=== PATIENT | female | born 1955 | race African-American/Black ===

== ENCOUNTER 2016-12-06 17:54 | Emergency (ER) | payer OTHER ==
[2016-12-06 18:12] VITALS: RESP 18
[2016-12-06] MEDS ORDERED: predniSONE 20 MG TAB PO STA (18:14)
[2016-12-06] MEDS ORDERED: diphenhydrAMINE 25 MG CAP PO STA (18:14)
[2016-12-06] MEDS ORDERED: FAMOTIDINE 20 MG TAB PO STA (18:15)
[2016-12-06 19:20] VITALS: BP 153/88; PULSE 65; TEMP 97.8
--- NOTE | 2016-12-06 19:23 | ED ---
General Adult HPI - General Chief complaint: Allergic Reaction Stated complaint: allergic reaction Time Seen by Provider: 12/06/16 18:13 Source: patient, RN notes reviewed Mode of arrival: ambulatory Limitations: no limitations - History of Present Illness Initial comments: Chief complaint history of present illness is a 61-year-old female scone the emergency room after taking Benadryl home because of an ALLERGIC reaction. Patient reports she was using various places on her medial she started itching and having hives on her back chest and arms. She took Benadryl which by time she got it was already starting to help. Patient is not having any difficulty breathing. - Related Data Home Medications Medication Instructions Recorded Confirmed amLODIPine BESYLATE/BENAZEPRIL 1 cap PO DAILY 09/25/13 12/06/16 [Amlodipine-Benazepril 10-40 mg] Albuterol Inhaler [Ventolin Hfa 2 puff INHALATION RT-Q4H PRN 07/08/15 12/06/16 Inhaler] Budesonide [Pulmicort Flexhaler] 2 puff INHALATION RT-BID 12/06/16 12/06/16 Cholecalciferol [Vitamin D3] 1,000 unit PO DAILY 12/06/16 12/06/16 Cyanocobalamin (Vitamin B-12) 1,000 mcg PO DAILY 12/06/16 12/06/16 [Vitamin B-12] Gabapentin [Neurontin] 300 mg PO BID 12/06/16 12/06/16 Ibuprofen [Motrin] 400 mg PO Q8HR PRN 12/06/16 12/06/16 Previous Rx's Medication Instructions Recorded Famotidine [Pepcid] 20 mg PO DAILY #3 tablet 12/06/16 predniSONE 20 mg PO DAILY #3 tab 12/06/16 Allergies Allergy/AdvReac Type Severity Reaction Status Date / Time erythromycin base AdvReac Nausea Verified 12/06/16 18:32 [Erythromycin Base] Review of Systems ROS Statement: Those systems with pertinent positive or pertinent negative responses have been documented in the HPI. Review of systems. Patient denies any visual acuity no shortness of breath no stridor. She skin is itchy. She does have hives as noted. He states eyes wrist subsiding after taking Benadryl at home. Patient denies any chest pain shortness breath GI/ problems. All systems reviewed. Past medical problems significant for hypertension, osteoarthritis, she had bilateral tubal ligation and right hip pinning. Family history noncontributory. Patient has ALLERGIES to erythromycin base. ROS Other: All systems not noted in ROS Statement are negative. Past Medical History Past Medical History: Eye Disorder, Hypertension, Osteoarthritis (OA) Additional Past Medical History / Comment(s): Osteoporosis, Lower Back Pain, Sciatica., TOLD YEARS AGO SHE HAD HEART MURMUR- NO TX, HX ACUTE BRONCHITIS( SMOKER), GLASSES DAILY USE History of Any Multi-Drug Resistant Organisms: None Reported Past Surgical History: Orthopedic Surgery, Tubal Ligation Additional Past Surgical History / Comment(s): 2 pins right hip-dislocated 1975 Past Anesthesia/Blood Transfusion Reactions: No Reported Reaction Past Psychological History: Anxiety, Depression Smoking Status: Current some day smoker Past Alcohol Use History: Daily Past Drug Use History: None Reported - Past Family History Mother Family Medical History: Liver Disease Father Family Medical History: Cancer Additional Family Medical History / Comment(s): Lung and liver cancer. General Exam - General Exam Comments Initial Comments: General: The patient is awake and alert, anxious because of the hives. But improving because of Benadryl she took at home. In emergency room the patient's temperature 98.5 pulse 72 respiratory rate 18 pulse ox on percent room air blood pressure 127/76. Eye: Pupils are equal, round and reactive to light, extra-ocular movements are intact ; there is normal conjunctiva bilaterally. No signs of icterus. Ears, nose, mouth and throat: There are moist mucous membranes and no oral lesions. Neck: The neck is supple, there is no tenderness, no stridor. Cardiovascular: There is a regular rate and rhythm. No murmur, rub or gallop is appreciated. Respiratory: Lungs are clear to auscultation, respirations are non-labored, breath sounds are equal. No wheezes, stridor, rales, or rhonchi. Gastrointestinal: No complaint of nausea or vomiting. Back: Hives on her back which are subsiding. Musculoskeletal: Full range of motion upper and lower extremities but hives on her upper extremities. Neurological: Alert and oriented no deficits. Skin: Hives arms legs back chest. Limitations: no limitations Course Vital Signs 12/06/16 18:09 Temperature 98.5 F Pulse Rate 72 Respiratory 18 Rate Blood Pressure 127/70 O2 Sat by Pulse 100 Oximetry Medical Decision Making - Medical Decision Making Around emergency room the patient also received 25 mg more Benadryl. As well as Pepcid 20 and prednisone 20 by mouth. The patient is resting comfortably. Hives are subsiding. No stridor no respiratory distress no difficulty breathing. On discharge patient will be advised to take Benadryl 25 mg 4 times daily she' ll also be advised to take Pepcid 1 tablet daily for the next 2 days as well as prednisone 20 mg daily for the next 2 days. Advised return emergency room if she has any changes especially respiratory problems. Disposition Clinical Impression: Allergic reaction Disposition: HOME SELF-CARE Condition: Good Instructions: Food Allergy (ED) Additional Instructions: Take Benadryl 25 mg 3 times a day for the next 2 days. Take prednisone 20 mg one per day for the next 2 days. Take Pepcid 20 mg one per day for the next 2 days. Prescriptions: Famotidine [Pepcid] 20 mg PO DAILY #3 tablet predniSONE 20 mg PO DAILY #3 tab Referrals: Esmer Holm MD [Primary Care Provider] - 1-2 days Time of Disposition: 19:23
== END 2016-12-06 19:30 | disposition home or self-care (01) ==
LOC: EC 17:54
DX: T78.49XA Other allergy, initial encounter (principal); I10 Essential (primary) hypertension; F41.9 Anxiety disorder, unspecified; F17.200 Nicotine dependence, unspecified, uncomplicated; Z79.899 Other long term (current) drug therapy; Z79.51 Long term (current) use of inhaled steroids; Z88.1 Allergy status to other antibiotic agents; Z87.09 Personal history of other diseases of the respiratory system
CPT/HCPCS: 99283; J7512

== ENCOUNTER 2017-10-26 17:16 | Emergency (ER) | payer OTHER ==
[2017-10-26 17:31] VITALS: TEMP 97.9
[2017-10-26] MEDS ORDERED: IPRATROPIUM-ALBUTEROL 3 ML NEB INHALATION STA (17:56)
--- NOTE | 2017-10-26 17:56 | ED ---
General Adult HPI - General Chief complaint: Shortness of Breath Stated complaint: Sob Time Seen by Provider: 10/26/17 17:25 Source: patient, RN notes reviewed Mode of arrival: EMS Limitations: no limitations - History of Present Illness Initial comments: This is a 62-year-old female who presents to the emergency department complaining that she's had difficulty breathing 4 days. Patient is very tearful throughout the exam which she cannot explain. Patient states the difficulty breathing started 4 days ago and seems to be getting worse. Patient states she has had a cough but the cough is a dry cough no sputum production. Patient denies any fever or chills. Patient states she still is a smoker. Patient denies any chest pain or palpitations. Patient denies any calf pain or leg swelling. Patient denies any abdominal pain. Patient denies any headache patient denies numbness weakness. Patient denies any drug use. - Related Data Home Medications Medication Instructions Recorded Confirmed amLODIPine BESYLATE/BENAZEPRIL 1 cap PO DAILY 09/25/13 12/06/16 [Amlodipine-Benazepril 10-40 mg] Albuterol Inhaler [Ventolin Hfa 2 puff INHALATION RT-Q4H PRN 07/08/15 12/06/16 Inhaler] Budesonide [Pulmicort Flexhaler] 2 puff INHALATION RT-BID 12/06/16 12/06/16 Cholecalciferol [Vitamin D3] 1,000 unit PO DAILY 12/06/16 12/06/16 Cyanocobalamin (Vitamin B-12) 1,000 mcg PO DAILY 12/06/16 12/06/16 [Vitamin B-12] Gabapentin [Neurontin] 300 mg PO BID 12/06/16 12/06/16 Ibuprofen [Motrin] 400 mg PO Q8HR PRN 12/06/16 12/06/16 Previous Rx's Medication Instructions Recorded Famotidine [Pepcid] 20 mg PO DAILY #3 tablet 12/06/16 predniSONE 20 mg PO DAILY #3 tab 12/06/16 Allergies Allergy/AdvReac Type Severity Reaction Status Date / Time erythromycin base AdvReac Nausea Verified 10/26/17 17:31 [Erythromycin Base] Review of Systems ROS Statement: Those systems with pertinent positive or pertinent negative responses have been documented in the HPI. ROS Other: All systems not noted in ROS Statement are negative. Past Medical History Past Medical History: Eye Disorder, Hypertension, Osteoarthritis (OA) Additional Past Medical History / Comment(s): Osteoporosis, Lower Back Pain, Sciatica., TOLD YEARS AGO SHE HAD HEART MURMUR- NO TX, HX ACUTE BRONCHITIS( SMOKER), GLASSES DAILY USE History of Any Multi-Drug Resistant Organisms: None Reported Past Surgical History: Orthopedic Surgery, Tubal Ligation Additional Past Surgical History / Comment(s): 2 pins right hip-dislocated 1976 Past Anesthesia/Blood Transfusion Reactions: No Reported Reaction Past Psychological History: Anxiety, Depression Smoking Status: Current every day smoker Past Alcohol Use History: Daily Past Drug Use History: None Reported - Past Family History Mother Family Medical History: Liver Disease Father Family Medical History: Cancer Additional Family Medical History / Comment(s): Lung and liver cancer. General Exam - General Exam Comments Initial Comments: GENERAL: Patient is well-developed and well-nourished. Patient is nontoxic and well- hydrated and is in mild distress. ENT: Neck is soft and supple. No significant lymphadenopathy is noted. Oropharynx is clear. Moist mucous membranes. Neck has full range of motion without eliciting any pain. EYES: The sclera were anicteric and conjunctiva were pink and moist. Extraocular movements were intact and pupils were equal round and reactive to light. Eyelids were unremarkable. PULMONARY: Unlabored respirations. Good breath sounds bilaterally. No audible rales rhonchi or wheezing was noted. CARDIOVASCULAR: There is a regular rate and rhythm without any murmurs gallops or rubs. ABDOMEN: Soft and nontender with normal bowel sounds. No palpable organomegaly was noted. There is no palpable pulsatile mass. SKIN: Skin is clear with no lesions or rashes and otherwise unremarkable. NEUROLOGIC: Patient is alert and oriented x3. Cranial nerves II through XII are grossly intact. Motor and sensory are also intact. Normal speech, volume and content. Symmetrical smile. MUSCULOSKELETAL: Normal extremities with adequate strength and full range of motion. No lower extremity swelling or edema. No calf tenderness. LYMPHATICS: No significant lymphadenopathy is noted PSYCHIATRIC: Patient seems very upset and threw the whole interview is crying. Limitations: no limitations Course Vital Signs 10/26/17 10/26/17 10/26/17 17:27 19:05 19:16 Temperature 97.9 F Pulse Rate 80 75 77 Respiratory 20 Rate Blood Pressure 131/75 O2 Sat by Pulse 97 Oximetry 10/26/17 20:54 Temperature Pulse Rate 74 Respiratory 18 Rate Blood Pressure 114/70 O2 Sat by Pulse 97 Oximetry Medical Decision Making - Medical Decision Making EKG shows normal sinus rhythm at 77 bpm [place] interval is 146 QRS is 80 QT interval 346 QTC is 391. Patient's EKG shows no ST segment elevation or depression or T wave abnormalities are noted. Chest x-ray shows no acute abnormality. I will back into the room the patient was sitting on the edge of bed talking laughing with family with no oxygen in no distress and oxygenating at 98%. - Lab Data Result diagrams: 10/26/17 18:23 10/26/17 18:23 Lab Results 10/26/17 10/26/17 10/26/17 Range/Units 18:23 18:23 18:23 WBC 8.1 (3.8-10.6) k/uL RBC 4.23 (3.80-5.40) m/uL Hgb 12.0 (11.4-16.0) gm/dL Hct 36.1 (34.0-46.0) % MCV 85.5 (80.0-100.0) fL MCH 28.3 (25.0-35.0) pg MCHC 33.1 (31.0-37.0) g/dL RDW 13.5 (11.5-15.5) % Plt Count 355 (150-450) k/uL Neutrophils % 52 % Lymphocytes % 37 % Monocytes % 6 % Eosinophils % 2 % Basophils % 1 % Neutrophils # 4.2 (1.3-7.7) k/uL Lymphocytes # 3.0 (1.0-4.8) k/uL Monocytes # 0.5 (0-1.0) k/uL Eosinophils # 0.2 (0-0.7) k/uL Basophils # 0.0 (0-0.2) k/uL PT (9.0-12.0) sec INR (<1.2) APTT (22.0-30.0) sec D-Dimer (<0.60) mg/L FEU Sodium 131 L (137-145) mmol/L Potassium 4.3 (3.5-5.1) mmol/L Chloride 100 (98-107) mmol/L Carbon Dioxide 17 L (22-30) mmol/L Anion Gap 14 mmol/L BUN 6 L (7-17) mg/dL Creatinine 0.50 L (0.52-1.04) mg/dL Est GFR (CKD-EPI)AfAm >90 (>60 ml/min/1.73 sqM) Est GFR (CKD-EPI)NonAf >90 (>60 ml/min/1.73 sqM) Glucose 86 (74-99) mg/dL Calcium 9.4 (8.4-10.2) mg/dL Magnesium 1.7 (1.6-2.3) mg/dL Total Bilirubin 0.4 (0.2-1.3) mg/dL AST 35 (14-36) U/L ALT 36 (9-52) U/L Alkaline Phosphatase 65 (38-126) U/L Total Creatine Kinase 136 H (30-135) U/L CK-MB (CK-2) 0.8 (0.0-2.4) ng/mL CK-MB (CK-2) Rel Index 0.6 Troponin I <0.012 (0.000-0.034) ng/mL NT-Pro-B Natriuret Pep pg/mL Total Protein 7.3 (6.3-8.2) g/dL Albumin 4.5 (3.5-5.0) g/dL Serum Alcohol 212 mg/dL 10/26/17 10/26/17 Range/Units 18:23 18:23 WBC (3.8-10.6) k/uL RBC (3.80-5.40) m/uL Hgb (11.4-16.0) gm/dL Hct (34.0-46.0) % MCV (80.0-100.0) fL MCH (25.0-35.0) pg MCHC (31.0-37.0) g/dL RDW (11.5-15.5) % Plt Count (150-450) k/uL Neutrophils % % Lymphocytes % % Monocytes % % Eosinophils % % Basophils % % Neutrophils # (1.3-7.7) k/uL Lymphocytes # (1.0-4.8) k/uL Monocytes # (0-1.0) k/uL Eosinophils # (0-0.7) k/uL Basophils # (0-0.2) k/uL PT 9.4 (9.0-12.0) sec INR 0.9 (<1.2) APTT 24.4 (22.0-30.0) sec D-Dimer 0.57 (<0.60) mg/L FEU Sodium (137-145) mmol/L Potassium (3.5-5.1) mmol/L Chloride (98-107) mmol/L Carbon Dioxide (22-30) mmol/L Anion Gap mmol/L BUN (7-17) mg/dL Creatinine (0.52-1.04) mg/dL Est GFR (CKD-EPI)AfAm (>60 ml/min/1.73 sqM) Est GFR (CKD-EPI)NonAf (>60 ml/min/1.73 sqM) Glucose (74-99) mg/dL Calcium (8.4-10.2) mg/dL Magnesium (1.6-2.3) mg/dL Total Bilirubin (0.2-1.3) mg/dL AST (14-36) U/L ALT (9-52) U/L Alkaline Phosphatase (38-126) U/L Total Creatine Kinase (30-135) U/L CK-MB (CK-2) (0.0-2.4) ng/mL CK-MB (CK-2) Rel Index Troponin I (0.000-0.034) ng/mL NT-Pro-B Natriuret Pep 83 pg/mL Total Protein (6.3-8.2) g/dL Albumin (3.5-5.0) g/dL Serum Alcohol mg/dL Disposition Clinical Impression: Alcohol intoxication, Dyspnea Disposition: HOME SELF-CARE Condition: Good Instructions: Alcohol Intoxication (ED), Dyspnea (ED) Is patient prescribed a controlled substance at d/c from ED?: No Referrals: Esmer Holm MD [Primary Care Provider] - 1-2 days Time of Disposition: 20:32
[2017-10-26 18:35] LABS: Basophils % (A) 1 %; Eosinophils # (A) 0.2 k/uL (0-0.7); Eosinophils % (A) 2 %; HCT 36.1 % (34.0-46.0); Lymphocytes % (A) 37 %; MCH 28.3 pg (25.0-35.0); MCHC 33.1 g/dL (31.0-37.0); MCV 85.5 fL (80.0-100.0); Mean Platelet Volume 6.6; Monocytes # (A) 0.5 k/uL (0-1.0); Monocytes % (A) 6 %; Neutrophils # (A) 4.2 k/uL (1.3-7.7); Neutrophils % (A) 52 %; Platelet Count 355 k/uL (150-450); RBC 4.23 m/uL (3.80-5.40); RDW 13.5 % (11.5-15.5); WBC 8.1 k/uL (3.8-10.6)
[2017-10-26 18:46] LABS: ALT 36 U/L (9-52); AST 35 U/L (14-36); Albumin 4.5 g/dL (3.5-5.0); Alkaline Phosphatase 65 U/L (38-126); Anion Gap 14 mmol/L; Blood Urea Nitrogen 6 mg/dL (7-17); Calcium 9.4 mg/dL (8.4-10.2); Carbon Dioxide 17 mmol/L (22-30); Chloride 100 mmol/L (98-107); Glucose 86 mg/dL (74-99); Magnesium 1.7 mg/dL (1.6-2.3); Potassium 4.3 mmol/L (3.5-5.1); Sodium 131 mmol/L (137-145); Total Bilirubin 0.4 mg/dL (0.2-1.3); Total Protein 7.3 g/dL (6.3-8.2)
[2017-10-26 18:49] LABS: Alcohol 212 mg/dL
[2017-10-26 18:52] LABS: Creatine Kinase 136 U/L (30-135)
[2017-10-26 18:54] LABS: D-Dimer 0.57 mg/L FEU (<0.60); INR 0.9 (<1.2); Partial Thromboplastin Time 24.4 sec (22.0-30.0); Prothrombin Time 9.4 sec (9.0-12.0)
[2017-10-26 19:06] LABS: Creatine Kinase MB 0.8 ng/mL (0.0-2.4); Troponin I <0.012 ng/mL (0.000-0.034)
[2017-10-26 20:55] VITALS: BP 114/70; PULSE 74; RESP 18
--- NOTE | 2017-10-26 21:23 | XR ---
EXAMINATION: XR chest 2V DATE AND TIME: 10/26/2017 7:19 PM ORDERING PROVIDER: David Gorman MD CLINICAL INDICATION: difficulty breathing TECHNIQUE: PA and lateral COMPARISON: 02/13/2015 DESCRIPTION: The lungs are clear. The pleural spaces are negative. The cardiac silhouette is not enlarged. The mediastinal and pleural silhouettes are unremarkable. The skeletal structures are intact without focal findings. The soft tissues are unremarkable. IMPRESSION: NO ACUTE PROCESS.
== END 2017-10-26 21:00 | disposition home or self-care (01) ==
LOC: EC 17:16
DX: F10.120 Alcohol abuse with intoxication, uncomplicated (principal); R06.00 Dyspnea, unspecified; R05 Cough; I10 Essential (primary) hypertension; F17.200 Nicotine dependence, unspecified, uncomplicated; Z79.51 Long term (current) use of inhaled steroids; Z79.899 Other long term (current) drug therapy; Z88.1 Allergy status to other antibiotic agents
CPT/HCPCS: 36415; 71046; 80053; 80320; 82550; 82553; 83735; 83880; 84484; 85025; 85379; 85610; 85730; 93005; 94640; 99285

== ENCOUNTER 2017-11-22 16:54 | Emergency (ER) | payer OTHER ==
[2017-11-22 17:06] VITALS: RESP 18
[2017-11-22] MEDS ORDERED: PANTOPRAZOLE 40 MG/10 ML VIAL IVP STA (18:17)
[2017-11-22] MEDS ORDERED: MAG HYDROX/AL HYDROX/SIMETH 30 ML, HYOSCYAMINE ELIXIR 10 ML, CIMETIDINE HCL 300 MG PO STA ×3 (18:17)
--- NOTE | 2017-11-22 18:20 | ED ---
General Adult HPI - General Chief complaint: Abdominal Pain Stated complaint: Gas in stomach Time Seen by Provider: 11/22/17 18:01 Source: patient, RN notes reviewed Mode of arrival: ambulatory Limitations: no limitations - History of Present Illness Initial comments: This is a 62-year-old female presents emergency Department chief complaint of gas . She states that she has increased gas states that she's currently burping and passing gas rectally. Patient states that when she does burp or pass gas she feels better. She denies any shortness breath usual she states she is a daily smoker and does have COPD. Patient denies chest pain. Patient states that the symptoms started yesterday and have continued into today. Patient denies any prior abdominal surgeries. Denies fever, chills, nausea or vomiting. Patient states that she's had no cardiac history. - Related Data Home Medications Medication Instructions Recorded Confirmed amLODIPine BESYLATE/BENAZEPRIL 1 cap PO DAILY 09/25/13 12/06/16 [Amlodipine-Benazepril 10-40 mg] Albuterol Inhaler [Ventolin Hfa 2 puff INHALATION RT-Q4H PRN 07/08/15 12/06/16 Inhaler] Budesonide [Pulmicort Flexhaler] 2 puff INHALATION RT-BID 12/06/16 12/06/16 Cholecalciferol [Vitamin D3] 1,000 unit PO DAILY 12/06/16 12/06/16 Cyanocobalamin (Vitamin B-12) 1,000 mcg PO DAILY 12/06/16 12/06/16 [Vitamin B-12] Gabapentin [Neurontin] 300 mg PO BID 12/06/16 12/06/16 Ibuprofen [Motrin] 400 mg PO Q8HR PRN 12/06/16 12/06/16 Previous Rx's Medication Instructions Recorded Famotidine [Pepcid] 20 mg PO DAILY #3 tablet 12/06/16 predniSONE 20 mg PO DAILY #3 tab 12/06/16 Omeprazole 40 mg PO DAILY #14 capsule. 11/22/17 Allergies Allergy/AdvReac Type Severity Reaction Status Date / Time erythromycin base AdvReac Nausea Verified 11/22/17 17:06 [Erythromycin Base] Review of Systems ROS Statement: Those systems with pertinent positive or pertinent negative responses have been documented in the HPI. ROS Other: All systems not noted in ROS Statement are negative. Past Medical History Past Medical History: Eye Disorder, Hypertension, Osteoarthritis (OA) Additional Past Medical History / Comment(s): Osteoporosis, Lower Back Pain, Sciatica., TOLD YEARS AGO SHE HAD HEART MURMUR- NO TX, HX ACUTE BRONCHITIS( SMOKER), GLASSES DAILY USE History of Any Multi-Drug Resistant Organisms: None Reported Past Surgical History: Orthopedic Surgery, Tubal Ligation Additional Past Surgical History / Comment(s): 2 pins right hip-dislocated 1976 Past Anesthesia/Blood Transfusion Reactions: No Reported Reaction Past Psychological History: Anxiety, Depression Smoking Status: Current every day smoker Past Alcohol Use History: Daily Past Drug Use History: None Reported - Past Family History Mother Family Medical History: Liver Disease Father Family Medical History: Cancer Additional Family Medical History / Comment(s): Lung and liver cancer. General Exam Limitations: no limitations General appearance: alert, in no apparent distress Head exam: Present: atraumatic, normocephalic, normal inspection Eye exam: Present: normal appearance, PERRL, EOMI. Absent: scleral icterus, conjunctival injection, periorbital swelling ENT exam: Present: normal exam, normal oropharynx, mucous membranes moist Neck exam: Present: normal inspection, full ROM. Absent: tenderness, meningismus, lymphadenopathy Respiratory exam: Present: normal lung sounds bilaterally. Absent: respiratory distress, wheezes, rales, rhonchi, stridor Cardiovascular Exam: Present: regular rate, normal rhythm, normal heart sounds. Absent: systolic murmur, diastolic murmur, rubs, gallop, clicks GI/Abdominal exam: Present: soft, normal bowel sounds. Absent: distended, tenderness, guarding, rebound, rigid Back exam: Absent: CVA tenderness (R), CVA tenderness (L) Skin exam: Present: warm, dry, intact, normal color. Absent: rash Course Vital Signs 11/22/17 17:03 Temperature 97.7 F Pulse Rate 72 Respiratory 18 Rate Blood Pressure 152/84 O2 Sat by Pulse 100 Oximetry - Reevaluation(s) Reevaluation #1: 11/22/17 19:35 Patient was reevaluated this time she states the GI tract had completely resolved her symptoms. Patient is symptom-free. EKG Findings - EKG Comments: EKG Findings:: EKG performed at 17:14 normal sinus rhythm with a rate of 71 VT interval 162 QRS 84 QT/QTC 386/119 Medical Decision Making - Medical Decision Making 62-year-old female presents emergency from for gas, reflux symptoms. Patient had EKG, chest x-ray, lab work which is unremarkable. Patient was given GI cocktail with resolved her symptoms. Patient denies chest pain. Patient will be started on omeprazole 40 mg. Patient will follow up with her PCP and return for any worsening symptoms. - Lab Data Result diagrams: 11/22/17 18:44 11/22/17 18:44 Lab Results 11/22/17 11/22/17 11/22/17 Range/Units 18:44 18:44 18:44 WBC 6.7 (3.8-10.6) k/uL RBC 4.08 (3.80-5.40) m/uL Hgb 11.7 (11.4-16.0) gm/dL Hct 36.5 (34.0-46.0) % MCV 89.3 (80.0-100.0) fL MCH 28.6 (25.0-35.0) pg MCHC 32.1 (31.0-37.0) g/dL RDW 13.6 (11.5-15.5) % Plt Count 311 (150-450) k/uL Neutrophils % 52 % Lymphocytes % 37 % Monocytes % 6 % Eosinophils % 2 % Basophils % 1 % Neutrophils # 3.5 (1.3-7.7) k/uL Lymphocytes # 2.5 (1.0-4.8) k/uL Monocytes # 0.4 (0-1.0) k/uL Eosinophils # 0.1 (0-0.7) k/uL Basophils # 0.1 (0-0.2) k/uL Sodium 135 L (137-145) mmol/L Potassium 4.1 (3.5-5.1) mmol/L Chloride 100 (98-107) mmol/L Carbon Dioxide 22 (22-30) mmol/L Anion Gap 13 mmol/L BUN 9 (7-17) mg/dL Creatinine 0.60 (0.52-1.04) mg/dL Est GFR (CKD-EPI)AfAm >90 (>60 ml/min/1.73 sqM) Est GFR (CKD-EPI)NonAf >90 (>60 ml/min/1.73 sqM) Glucose 76 (74-99) mg/dL Calcium 9.8 (8.4-10.2) mg/dL Total Bilirubin 0.5 (0.2-1.3) mg/dL AST 45 H (14-36) U/L ALT 48 (9-52) U/L Alkaline Phosphatase 65 (38-126) U/L Troponin I (0.000-0.034) ng/mL Total Protein 7.3 (6.3-8.2) g/dL Albumin 4.5 (3.5-5.0) g/dL Amylase 96 (30-110) U/L Lipase 162 (23-300) U/L Urine Color Colorless Urine Appearance Cloudy H (Clear) Urine pH 7.0 (5.0-8.0) Ur Specific [place] 1.004 (1.001-1.035) Urine Protein Negative (Negative) Urine Glucose (UA) Negative (Negative) Urine Ketones Negative (Negative) Urine Blood Negative (Negative) Urine Nitrite Negative (Negative) Urine Bilirubin Negative (Negative) Urine Urobilinogen <2.0 (<2.0) mg/dL Ur Leukocyte Esterase Negative (Negative) Urine WBC 1 (0-5) /hpf Ur Squamous Epith Cells 8 H (0-4) /hpf Amorphous Sediment Rare H (None) /hpf Urine Bacteria Rare H (None) /hpf Urine Mucus Rare H (None) /hpf 11/22/17 Range/Units 18:44 WBC (3.8-10.6) k/uL RBC (3.80-5.40) m/uL Hgb (11.4-16.0) gm/dL Hct (34.0-46.0) % MCV (80.0-100.0) fL MCH (25.0-35.0) pg MCHC (31.0-37.0) g/dL RDW (11.5-15.5) % Plt Count (150-450) k/uL Neutrophils % % Lymphocytes % % Monocytes % % Eosinophils % % Basophils % % Neutrophils # (1.3-7.7) k/uL Lymphocytes # (1.0-4.8) k/uL Monocytes # (0-1.0) k/uL Eosinophils # (0-0.7) k/uL Basophils # (0-0.2) k/uL Sodium (137-145) mmol/L Potassium (3.5-5.1) mmol/L Chloride (98-107) mmol/L Carbon Dioxide (22-30) mmol/L Anion Gap mmol/L BUN (7-17) mg/dL Creatinine (0.52-1.04) mg/dL Est GFR (CKD-EPI)AfAm (>60 ml/min/1.73 sqM) Est GFR (CKD-EPI)NonAf (>60 ml/min/1.73 sqM) Glucose (74-99) mg/dL Calcium (8.4-10.2) mg/dL Total Bilirubin (0.2-1.3) mg/dL AST (14-36) U/L ALT (9-52) U/L Alkaline Phosphatase (38-126) U/L Troponin I <0.012 (0.000-0.034) ng/mL Total Protein (6.3-8.2) g/dL Albumin (3.5-5.0) g/dL Amylase (30-110) U/L Lipase (23-300) U/L Urine Color Urine Appearance (Clear) Urine pH (5.0-8.0) Ur Specific [place] (1.001-1.035) Urine Protein (Negative) Urine Glucose (UA) (Negative) Urine Ketones (Negative) Urine Blood (Negative) Urine Nitrite (Negative) Urine Bilirubin (Negative) Urine Urobilinogen (<2.0) mg/dL Ur Leukocyte Esterase (Negative) Urine WBC (0-5) /hpf Ur Squamous Epith Cells (0-4) /hpf Amorphous Sediment (None) /hpf Urine Bacteria (None) /hpf Urine Mucus (None) /hpf Disposition Clinical Impression: GERD (gastroesophageal reflux disease) Disposition: HOME SELF-CARE Condition: Stable Instructions: Diet for Stomach Ulcers and Gastritis (ED), Gastroesophageal Reflux Disease (ED) Additional Instructions: Please return to the Emergency Department if symptoms worsen or any other concerns. Prescriptions: Omeprazole 40 mg PO DAILY #14 capsule.dr Is patient prescribed a controlled substance at d/c from ED?: No Referrals: Kat Stroud MD [STAFF PHYSICIAN] - 1-2 days Time of Disposition: 19:37
[2017-11-22 18:56] LABS: Basophils # (A) 0.1 k/uL (0-0.2); Basophils % (A) 1 %; Eosinophils # (A) 0.1 k/uL (0-0.7); Eosinophils % (A) 2 %; HCT 36.5 % (34.0-46.0); HGB 11.7 gm/dL (11.4-16.0); Lymphocytes # (A) 2.5 k/uL (1.0-4.8); Lymphocytes % (A) 37 %; MCH 28.6 pg (25.0-35.0); MCHC 32.1 g/dL (31.0-37.0); MCV 89.3 fL (80.0-100.0); Monocytes # (A) 0.4 k/uL (0-1.0); Monocytes % (A) 6 %; Neutrophils # (A) 3.5 k/uL (1.3-7.7); Neutrophils % (A) 52 %; Platelet Count 311 k/uL (150-450); RBC 4.08 m/uL (3.80-5.40); RDW 13.6 % (11.5-15.5); WBC 6.7 k/uL (3.8-10.6)
--- NOTE | 2017-11-22 19:00 | XR ---
EXAMINATION TYPE: XR chest 2V DATE OF EXAM: 11/22/2017 COMPARISON: 10/26/2017 HISTORY: Abdominal pain TECHNIQUE: Frontal and lateral views of the chest are obtained. FINDINGS: Heart and mediastinum are normal. Lungs are clear. Diaphragm is normal. Bony thorax appear s normal. IMPRESSION: Normal chest. No change.
--- NOTE | 2017-11-22 19:01 | XR ---
EXAMINATION TYPE: XR KUB DATE OF EXAM: 11/22/2017 COMPARISON: 07/08/2015 HISTORY: Abdominal pain TECHNIQUE: 2 views FINDINGS: There is no sign of intestinal obstruction or pneumoperitoneum. Fecal pattern is normal. Ronit ng bases are clear. There is right hip nailing. There are no pathologic calcifications over the kidne ys. IMPRESSION: Nonacute abdomen. There is decreased intestinal gas compared to last exam.
[2017-11-22 19:09] LABS: ALT 48 U/L (9-52); AST 45 U/L (14-36); Albumin 4.5 g/dL (3.5-5.0); Alkaline Phosphatase 65 U/L (38-126); Amylase 96 U/L (30-110); Anion Gap 13 mmol/L; Blood Urea Nitrogen 9 mg/dL (7-17); Calcium 9.8 mg/dL (8.4-10.2); Carbon Dioxide 22 mmol/L (22-30); Chloride 100 mmol/L (98-107); Glucose 76 mg/dL (74-99); Lipase 162 U/L (23-300); Potassium 4.1 mmol/L (3.5-5.1); Sodium 135 mmol/L (137-145); Total Bilirubin 0.5 mg/dL (0.2-1.3); Total Protein 7.3 g/dL (6.3-8.2)
[2017-11-22 19:21] LABS: Amorphous Sediment,Urine Rare /hpf; Appearance,Urine Cloudy (Clear); Bacteria,Urine Rare /hpf; Bilirubin,Urine Negative (Negative); Blood,Urine Negative (Negative); Color,Urine Colorless; Glucose,Urine (UA) Negative (Negative); Ketones,Urine Negative (Negative); Leukocyte Esterase,Urine Negative (Negative); Mucus,Urine Rare /hpf; Nitrite,Urine Negative (Negative); Protein,Urine Negative (Negative); Specific Gravity,Urine 1.004 (1.001-1.035); Squamous Epithelial Cell,Urine 8 /hpf (0-4); Urobilinogen,Urine <2.0 mg/dL (<2.0); WBC,Urine 1 /hpf (0-5)
[2017-11-22 20:18] VITALS: BP 134/87; PULSE 83; TEMP 99.3
== END 2017-11-22 20:19 | disposition home or self-care (01) ==
LOC: EC 16:54
DX: K21.9 Gastro-esophageal reflux disease without esophagitis (principal); R14.3 Flatulence; J44.9 Chronic obstructive pulmonary disease, unspecified; I10 Essential (primary) hypertension; F41.9 Anxiety disorder, unspecified; F17.200 Nicotine dependence, unspecified, uncomplicated; Z88.1 Allergy status to other antibiotic agents; Z79.51 Long term (current) use of inhaled steroids; Z79.899 Other long term (current) drug therapy; Z86.69 Personal history of other diseases of the nervous system and sense organs; Z80.0 Family history of malignant neoplasm of digestive organs
CPT/HCPCS: 36415; 93005; 80053; 82150; 83690; 84484; 85025; 81001; 71046; 74018; 99284; 96374; C9113

== ENCOUNTER 2018-11-24 09:15 | Emergency (ER) | payer OTHER ==
[2018-11-24 09:24] VITALS: RESP 18
--- NOTE | 2018-11-24 09:54 | ED ---
Abdominal Pain HPI - General Chief Complaint: Abdominal Pain Stated Complaint: Constipated Time Seen by Provider: 11/24/18 09:39 Source: patient, RN notes reviewed Mode of arrival: ambulatory Limitations: no limitations - History of Present Illness Initial Comments: 63-year-old female presents emergency Department chief complaint constipation. Patient states that she has not been able to have bowel movement 5-6 days. She states that she stepped some antacids, fiber, stool softener and one dose of laxative. Patient states she is passing gas no prior abdominal surgeries. Denies fevers or chills no nausea vomiting. She has no complaints of dysuria or hematuria. Patient states she does feel sensation that she has to go. - Related Data Home Medications Medication Instructions Recorded Confirmed amLODIPine BESYLATE/BENAZEPRIL 1 cap PO DAILY 09/25/13 12/06/16 [Amlodipine-Benazepril 10-40 mg] Albuterol Inhaler [Ventolin Hfa 2 puff INHALATION RT-Q4H PRN 07/08/15 12/06/16 Inhaler] Budesonide [Pulmicort Flexhaler] 2 puff INHALATION RT-BID 12/06/16 12/06/16 Cholecalciferol [Vitamin D3] 1,000 unit PO DAILY 12/06/16 12/06/16 Cyanocobalamin (Vitamin B-12) 1,000 mcg PO DAILY 12/06/16 12/06/16 [Vitamin B-12] Gabapentin [Neurontin] 300 mg PO BID 12/06/16 12/06/16 Ibuprofen [Motrin] 400 mg PO Q8HR PRN 12/06/16 12/06/16 Previous Rx's Medication Instructions Recorded Famotidine [Pepcid] 20 mg PO DAILY #3 tablet 12/06/16 predniSONE 20 mg PO DAILY #3 tab 12/06/16 Omeprazole 40 mg PO DAILY #14 capsule. 11/22/17 Allergies Allergy/AdvReac Type Severity Reaction Status Date / Time erythromycin base AdvReac Nausea Verified 11/24/18 09:22 [Erythromycin Base] Review of Systems ROS Statement: Those systems with pertinent positive or pertinent negative responses have been documented in the HPI. ROS Other: All systems not noted in ROS Statement are negative. Past Medical History Past Medical History: Eye Disorder, Hypertension, Osteoarthritis (OA) Additional Past Medical History / Comment(s): Osteoporosis, Lower Back Pain, Sciatica., TOLD YEARS AGO SHE HAD HEART MURMUR- NO TX, HX ACUTE BRONCHITIS(SMOKER), GLASSES DAILY USE History of Any Multi-Drug Resistant Organisms: None Reported Past Surgical History: Orthopedic Surgery, Tubal Ligation Additional Past Surgical History / Comment(s): 2 pins right hip-dislocated 1975 Past Anesthesia/Blood Transfusion Reactions: No Reported Reaction Past Psychological History: Anxiety, Depression Smoking Status: Current every day smoker Past Alcohol Use History: Occasional Past Drug Use History: None Reported - Past Family History Mother Family Medical History: Liver Disease Father Family Medical History: Cancer Additional Family Medical History / Comment(s): Lung and liver cancer. General Exam Limitations: no limitations General appearance: alert, in no apparent distress Head exam: Present: atraumatic, normocephalic, normal inspection Neck exam: Present: normal inspection, full ROM. Absent: tenderness, meningismus, lymphadenopathy Respiratory exam: Present: normal lung sounds bilaterally. Absent: respiratory distress, wheezes, rales, rhonchi, stridor Cardiovascular Exam: Present: regular rate, normal rhythm, normal heart sounds. Absent: systolic murmur, diastolic murmur, rubs, gallop, clicks GI/Abdominal exam: Present: soft, tenderness (Very minimal lower), normal bowel sounds. Absent: distended, guarding, rebound, rigid Back exam: Absent: CVA tenderness (R), CVA tenderness (L) Neurological exam: Present: alert Skin exam: Present: warm, dry, intact, normal color. Absent: rash Course Vital Signs 11/24/18 09:22 Temperature 97.9 F Pulse Rate 77 Respiratory 18 Rate Blood Pressure 133/82 O2 Sat by Pulse 99 Oximetry Medical Decision Making - Medical Decision Making 63-year-old female presented for constipation. Patient had x-ray which is nonspecific and was given patient has complete relief of her symptoms. Patient be discharged she is advised to follow-up for colonoscopy. Patient agrees patient will be discharged. Disposition Clinical Impression: Constipation Disposition: HOME SELF-CARE Condition: Stable Instructions (If sedation given, give patient instructions): Constipation (ED) Additional Instructions: Please return to the Emergency Department if symptoms worsen or any other concerns. Is patient prescribed a controlled substance at d/c from ED?: No Referrals: [facility] [Primary Care Provider] - 1-2 days Time of Disposition: 12:16
--- NOTE | 2018-11-24 10:00 | XR ---
EXAMINATION TYPE: XR KUB DATE OF EXAM: 11/24/2018 COMPARISON: 11/22/2017 HISTORY: Constipation TECHNIQUE: One view abdominal series FINDINGS: The osseous structures are intact. There is air seen throughout both large and small bowel loops in a nonspecific pattern. Postsurgical change right hip and arthropathy left hip. Hypertrophic change of the spine.. Lung bases are clear. IMPRESSION: 1. Nonspecific abdomen.
[2018-11-24 13:06] VITALS: BP 130/84; PULSE 70; TEMP 97
== END 2018-11-24 13:06 | disposition home or self-care (01) ==
LOC: EC 09:15
DX: K57.00 Diverticulitis of small intestine with perforation and abscess without bleeding (principal); I10 Essential (primary) hypertension; M19.90 Unspecified osteoarthritis, unspecified site; F17.200 Nicotine dependence, unspecified, uncomplicated; Z79.899 Other long term (current) drug therapy; Z88.1 Allergy status to other antibiotic agents
CPT/HCPCS: 74018; 99284

== ENCOUNTER → 2019-03-11 | Outpatient (CLI) | payer OTHER ==
--- NOTE | 2019-03-17 12:18 | MM ---
Reason for exam: screening (asymptomatic). Last mammogram was performed 4 years and 9 months ago. History: Patient is postmenopausal and had first child at age 35. Physical Findings: A clinical breast exam by your physician is recommended on an annual basis and results should be correlated with mammographic findings. MG Screening Mammo w CAD Bilateral CC and MLO view(s) were taken. Prior study comparison: January 28, 2018, mammogram, performed at [facility]. November 06, 2016, mammogram, performed at [facility]. June 14, 2014, bilateral MG screening mammo w CAD. June 13, 2013, bilateral digital screening mammo w/CAD. The breast tissue is heterogeneously dense. This may lower the sensitivity of mammography. There is no discrete abnormality. ASSESSMENT: Negative, BI-RAD 1 RECOMMENDATION: Routine screening mammogram of both breasts in 1 year.
== END | disposition home or self-care (01) ==
LOC: RADMAMWWP 09:21
PROVIDERS: ATTEND Nurse Practitioner Family
DX: Z12.31 Encounter for screening mammogram for malignant neoplasm of breast (principal)
CPT/HCPCS: 77067

== ENCOUNTER 2019-03-21 11:59 | Emergency (ER) | payer OTHER ==
[2019-03-21 12:19] VITALS: BP 124/66; PULSE 72; RESP 16; TEMP 98.2
[2019-03-21] MEDS ORDERED: CYCLOBENZAPRINE 10MG STARTER 3 TAB BTL PO STA (12:45)
[2019-03-21] MEDS ORDERED: KETOROLAC 30 MG/ML 1 ML VIAL IM STA (12:45)
--- NOTE | 2019-03-21 12:48 | ED ---
General Adult HPI - General Chief complaint: Extremity Problem,Nontraumatic Stated complaint: Back of leg spasms Time Seen by Provider: 03/21/19 12:16 Source: patient Mode of arrival: ambulatory Limitations: no limitations - History of Present Illness Initial comments: 64-year-old female patient presents to the emergency department today for evaluation of muscle spasms to the right posterior thigh. Patient states she's been having a since early this morning. Patient states she has been sleeping on a pullout couch for the last 2 days, states that there is a blighted exam to her leg. She denies any swelling, numbness, tingling to the leg. Denies any redness or rash. Denies history of similar symptoms. She denies any recent long car rides or travel. Denies history of DVT. Patient denies any recent rash, fever, chills, shortness breath, chest pain, abdominal pain, nausea, vomiting, diarrhea, constipation, back pain, dizziness, weakness, hematuria, dysuria, urinary urgency, urinary frequency, headache, visual changes, or any other complaints. - Related Data Home Medications Medication Instructions Recorded Confirmed amLODIPine BESYLATE/BENAZEPRIL 1 cap PO DAILY 09/25/13 12/06/16 [Amlodipine-Benazepril 10-40 mg] Albuterol Inhaler [Ventolin Hfa 2 puff INHALATION RT-Q4H PRN 07/08/15 12/06/16 Inhaler] Budesonide [Pulmicort Flexhaler] 2 puff INHALATION RT-BID 12/06/16 12/06/16 Cholecalciferol [Vitamin D3] 1,000 unit PO DAILY 12/06/16 12/06/16 Cyanocobalamin (Vitamin B-12) 1,000 mcg PO DAILY 12/06/16 12/06/16 [Vitamin B-12] Gabapentin [Neurontin] 300 mg PO BID 12/06/16 12/06/16 Ibuprofen [Motrin] 400 mg PO Q8HR PRN 12/06/16 12/06/16 Previous Rx's Medication Instructions Recorded Famotidine [Pepcid] 20 mg PO DAILY #3 tablet 12/06/16 predniSONE 20 mg PO DAILY #3 tab 12/06/16 Omeprazole 40 mg PO DAILY #14 capsule. 11/22/17 Cyclobenzaprine [Flexeril] 10 mg PO TID #15 tab 03/21/19 Ibuprofen [Motrin] 600 mg PO Q8HR PRN #20 tab 03/21/19 Allergies Allergy/AdvReac Type Severity Reaction Status Date / Time erythromycin base AdvReac Nausea Verified 03/21/19 12:19 [Erythromycin Base] Review of Systems ROS Statement: Those systems with pertinent positive or pertinent negative responses have been documented in the HPI. ROS Other: All systems not noted in ROS Statement are negative. Past Medical History Past Medical History: Eye Disorder, Hypertension, Osteoarthritis (OA) Additional Past Medical History / Comment(s): Osteoporosis, Lower Back Pain, Sciatica., TOLD YEARS AGO SHE HAD HEART MURMUR- NO TX, HX ACUTE BRONCHITIS(SMOKER), GLASSES DAILY USE History of Any Multi-Drug Resistant Organisms: None Reported Past Surgical History: Orthopedic Surgery, Tubal Ligation Additional Past Surgical History / Comment(s): 2 pins right hip-dislocated 1976 Past Anesthesia/Blood Transfusion Reactions: No Reported Reaction Past Psychological History: Anxiety, Depression Smoking Status: Current every day smoker Past Alcohol Use History: Occasional Past Drug Use History: None Reported - Past Family History Mother Family Medical History: Liver Disease Father Family Medical History: Cancer Additional Family Medical History / Comment(s): Lung and liver cancer. General Exam Limitations: no limitations General appearance: alert, in no apparent distress, other (Physical well-dev eloped, well-nourished adult female patient in no acute distress. Vital signs upon presentation are temperature 98.2F, pulse 72, respirations 16, blood pressure 124/66, pulse ox 99% on room air.) ENT exam: Present: normal exam, normal oropharynx, mucous membranes moist Respiratory exam: Present: normal lung sounds bilaterally. Absent: respiratory distress, wheezes, rales, rhonchi, stridor Cardiovascular Exam: Present: regular rate, normal rhythm, normal heart sounds. Absent: systolic murmur, diastolic murmur, rubs, gallop, clicks Extremities exam: Present: normal inspection, full ROM, normal capillary refill, other (There is no thigh or calf tenderness. Skin is warm and dry. Cap refills less than 3 seconds. Pedal and posttibial pulses are 2+ and equal bilaterally.). Absent: tenderness, pedal edema, joint swelling, calf tenderness Neurological exam: Present: alert, oriented X3, CN II-XII intact Psychiatric exam: Present: normal affect, normal mood Skin exam: Present: warm, dry, intact, normal color. Absent: rash Course Vital Signs 03/21/19 12:13 Temperature 98.2 F Pulse Rate 72 Respiratory 16 Rate Blood Pressure 124/66 O2 Sat by Pulse 99 Oximetry Medical Decision Making - Medical Decision Making 64-year-old female patient presented to the emergency department today for evaluation of spasms to the right posterior thigh. Physical examination is unremarkable. She has no leg swelling or erythema. No tenderness. She'll be treated with muscle relaxer and anti-inflammatory medication. She is instructed to follow-up with her primary care physician for recheck in 1-2 days. Return parameters were discussed in detail. She verbalizes understanding and agrees with this plan. Disposition Clinical Impression: Muscle spasm of right leg Disposition: HOME SELF-CARE Condition: Good Instructions (If sedation given, give patient instructions): Muscle Spasm (ED) Additional Instructions: Perform stretching exercises of the right leg. Take medication as directed. Follow-up with your primary care physician for recheck in 1-2 days. Return to the emergency department immediately for any new, worsening, or concerning symptoms. Prescriptions: Cyclobenzaprine [Flexeril] 10 mg PO TID #15 tab Ibuprofen [Motrin] 600 mg PO Q8HR PRN #20 tab PRN Reason: Pain Is patient prescribed a controlled substance at d/c from ED?: No Referrals: [facility] [Primary Care Provider] - 1-2 days Time of Disposition: 12:47
== END 2019-03-21 12:55 | disposition home or self-care (01) ==
LOC: EC 11:59
DX: M62.838 Other muscle spasm (principal); I10 Essential (primary) hypertension; M19.90 Unspecified osteoarthritis, unspecified site; M81.0 Age-related osteoporosis without current pathological fracture; F41.9 Anxiety disorder, unspecified; F17.200 Nicotine dependence, unspecified, uncomplicated; Z88.1 Allergy status to other antibiotic agents; Z79.1 Long term (current) use of non-steroidal anti-inflammatories (NSAID); Z79.51 Long term (current) use of inhaled steroids; Z79.899 Other long term (current) drug therapy; Z97.3 Presence of spectacles and contact lenses; Z96.698 Presence of other orthopedic joint implants
CPT/HCPCS: 99283; 96372; J1885

== ENCOUNTER 2019-05-24 08:26 | Emergency (ER) | payer OTHER ==
[2019-05-24 08:30] VITALS: TEMP 97.7
[2019-05-24] MEDS ORDERED: IPRATROPIUM-ALBUTEROL 3 ML NEB INHALATION STA (08:37)
--- NOTE | 2019-05-24 08:41 | ED ---
URI HPI - General Chief Complaint: Upper Respiratory Infection Stated Complaint: Chest cold Time Seen by Provider: 05/24/19 08:34 Source: patient, RN notes reviewed Mode of arrival: ambulatory Limitations: no limitations - History of Present Illness Initial Comments: This is a 64-year-old female with a history of COPD who states she's had the onset last 5 days of cough rhinorrhea and congestion shortness of breath chills and sweats no overt fever. C worse not better in spite of her home medications. Taking [id number] medication. No chest pain no other modifying factors MD Complaint: cough, rhinorrhea, nasal congestion, other - Related Data Home Medications Medication Instructions Recorded Confirmed amLODIPine BESYLATE/BENAZEPRIL 1 cap PO DAILY 09/25/13 12/06/16 [Amlodipine-Benazepril 10-40 mg] Albuterol Inhaler [Ventolin Hfa 2 puff INHALATION RT-Q4H PRN 07/08/15 12/06/16 Inhaler] Budesonide [Pulmicort Flexhaler] 2 puff INHALATION RT-BID 12/06/16 12/06/16 Cholecalciferol [Vitamin D3] 1,000 unit PO DAILY 12/06/16 12/06/16 Cyanocobalamin (Vitamin B-12) 1,000 mcg PO DAILY 12/06/16 12/06/16 [Vitamin B-12] Gabapentin [Neurontin] 300 mg PO BID 12/06/16 12/06/16 Ibuprofen [Motrin] 400 mg PO Q8HR PRN 12/06/16 12/06/16 Previous Rx's Medication Instructions Recorded Famotidine [Pepcid] 20 mg PO DAILY #3 tablet 12/06/16 predniSONE [Deltasone] 20 mg PO DAILY #3 tab 12/06/16 Omeprazole 40 mg PO DAILY #14 capsule. 11/22/17 Cyclobenzaprine [Flexeril] 10 mg PO TID #15 tab 03/21/19 Ibuprofen [Motrin] 600 mg PO Q8HR PRN #20 tab 03/21/19 Amoxic-Pot Clav 875-125Mg 1 tab PO Q12HR 3 Days #6 tab 05/24/19 [Augmentin 875-125] predniSONE [Deltasone] 20 mg PO BID #10 tab 05/24/19 Allergies Allergy/AdvReac Type Severity Reaction Status Date / Time erythromycin base AdvReac Nausea Verified 03/21/19 12:19 [Erythromycin Base] Review of Systems ROS Statement: Those systems with pertinent positive or pertinent negative responses have been documented in the HPI. ROS Other: All systems not noted in ROS Statement are negative. Past Medical History Past Medical History: Eye Disorder, Hypertension, Osteoarthritis (OA) Additional Past Medical History / Comment(s): Osteoporosis, Lower Back Pain, Sciatica., TOLD YEARS AGO SHE HAD HEART MURMUR- NO TX, HX ACUTE BRONCHITIS(SMOKER), GLASSES DAILY USE History of Any Multi-Drug Resistant Organisms: None Reported Past Surgical History: Orthopedic Surgery, Tubal Ligation Additional Past Surgical History / Comment(s): 2 pins right hip-dislocated 1975 Past Anesthesia/Blood Transfusion Reactions: No Reported Reaction Past Psychological History: Anxiety, Depression Smoking Status: Current every day smoker Past Alcohol Use History: Occasional Past Drug Use History: None Reported - Past Family History Mother Family Medical History: Liver Disease Father Family Medical History: Cancer Additional Family Medical History / Comment(s): Lung and liver cancer. General Exam - General Exam Comments Initial Comments: This is a well-developed well-nourished awake alert oriented 3 female Limitations: no limitations General appearance: alert, in no apparent distress Head exam: Present: atraumatic, normocephalic, normal inspection Eye exam: Present: normal appearance, PERRL, EOMI. Absent: scleral icterus, conjunctival injection, periorbital swelling ENT exam: Present: mucous membranes moist, other Neck exam: Present: normal inspection, full ROM, other. Absent: tenderness, meningismus, lymphadenopathy Respiratory exam: Present: wheezes, accessory muscle use, decreased breath sounds (No stridor JVD or bruits). Absent: respiratory distress, rales, rhonchi, stridor Cardiovascular Exam: Present: regular rate, normal rhythm, normal heart sounds. Absent: systolic murmur, diastolic murmur, rubs, gallop, clicks GI/Abdominal exam: Present: soft, normal bowel sounds. Absent: distended, tenderness, guarding, rebound, rigid Extremities exam: Present: normal inspection, full ROM, normal capillary refill. Absent: tenderness, pedal edema, joint swelling, calf tenderness Back exam: Present: normal inspection Neurological exam: Present: alert, oriented X3, CN II-XII intact Psychiatric exam: Present: normal affect, normal mood Skin exam: Present: warm, dry, intact, normal color. Absent: rash Course Vital Signs 05/24/19 05/24/19 05/24/19 08:27 08:29 08:57 Temperature 97.7 F Pulse Rate 89 68 Respiratory 18 20 Rate Blood Pressure 187/81 O2 Sat by Pulse 95 Oximetry 05/24/19 05/24/19 09:06 09:29 Temperature Pulse Rate 72 87 Respiratory 18 Rate Blood Pressure 153/93 O2 Sat by Pulse 100 Oximetry Medical Decision Making - Medical Decision Making Reevaluation patient finds that she is breathing much better has grade aeration no wheezing at this time she will be discharged on appropriate medication she does have inhalers at home. The presentation consistent with COPD exacerbation with bronchitis. The influenza swab was negative - Lab Data Lab Results 05/24/19 Range/Units 08:35 Influenza Type A RNA Not Detected (Not Detectd) Influenza Type B (PCR) Not Detected (Not Detectd) - Radiology Data Radiology results: report reviewed (I did review the imaging and report no acute findings.), image reviewed Disposition Clinical Impression: COPD with exacerbation, Acute bronchitis Disposition: HOME SELF-CARE Condition: Good Instructions (If sedation given, give patient instructions): COPD (Chronic Obstructive Pulmonary Disease) (ED), Acute Bronchitis (ED) Additional Instructions: Medication E scribed to your preferred pharmacy Prescriptions: Amoxic-Pot Clav 875-125Mg [Augmentin 875-125] 1 tab PO Q12HR 3 Days #6 tab predniSONE [Deltasone] 20 mg PO BID #10 tab Is patient prescribed a controlled substance at d/c from ED?: No Referrals: [facility] [Primary Care Provider] - 1-2 days
--- NOTE | 2019-05-24 08:48 | XR ---
EXAMINATION TYPE: XR chest 2V DATE OF EXAM: 05/24/2019 COMPARISON: Prior chest x-ray November 22, 2017. HISTORY: Cough and congestion for 6 days. TECHNIQUE: Frontal and lateral views of the chest are obtained. FINDINGS: There is no focal air space opacity, pleural effusion, or pneumothorax seen. The cardiac silhouette size is within normal limits. The osseous structures are intact. IMPRESSION: No suspicious acute pulmonary process. No significant change from prior.
[2019-05-24 09:44] VITALS: RESP 18
[2019-05-24] MEDS ORDERED: predniSONE 50 MG TAB PO STA (09:49)
[2019-05-24] MEDS ORDERED: AMOXIC-POT CLAV 875-125MG 1 EACH TAB PO STA (09:50)
[2019-05-24 10:06] VITALS: BP 150/85; PULSE 62
== END 2019-05-24 10:06 | disposition home or self-care (01) ==
LOC: EC 08:26
DX: J20.9 Acute bronchitis, unspecified (principal); J44.1 Chronic obstructive pulmonary disease with (acute) exacerbation; J44.0 Chronic obstructive pulmonary disease with (acute) lower respiratory infection; I10 Essential (primary) hypertension; M19.90 Unspecified osteoarthritis, unspecified site; M81.0 Age-related osteoporosis without current pathological fracture; F17.200 Nicotine dependence, unspecified, uncomplicated; Z79.51 Long term (current) use of inhaled steroids; Z79.899 Other long term (current) drug therapy; Z88.1 Allergy status to other antibiotic agents
CPT/HCPCS: 94640; 87502; 71046; 99284; J7512

== ENCOUNTER 2020-08-22 11:02 | Emergency (ER) | payer OTHER, MEDICARE ==
[2020-08-22 11:23] VITALS: TEMP 98.8
--- NOTE | 2020-08-22 11:42 | XR ---
EXAMINATION TYPE: XR chest 2V DATE OF EXAM: 08/22/2020 COMPARISON: 05/24/2019 TECHNIQUE: PA and lateral views submitted. HISTORY: Cough FINDINGS: The lungs are clear and there is no pneumothorax, pleural effusion, or focal pneumonia. Heart size normal. No overt failure. IMPRESSION: 1. No acute process.
[2020-08-22] MEDS ORDERED: SODIUM CHLORIDE 0.9% 1,000 ML IV STA (12:05)
[2020-08-22 12:46] LABS: African American GFR (CKD) >90 (>60 ml/min/1.73 sqM); Anion Gap 6 mmol/L; Blood Urea Nitrogen 4 mg/dL (7-17); Calcium 7.7 mg/dL (8.4-10.2); Carbon Dioxide 18 mmol/L (22-30); Chloride 105 mmol/L (98-107); Glucose 124 mg/dL (74-99); Non-African American GFR(CKD) >90 (>60 ml/min/1.73 sqM); Potassium 3.1 mmol/L (3.5-5.1); Sodium 129 mmol/L (137-145)
[2020-08-22 12:48] LABS: Basophils # (A) 0.1 k/uL (0-0.2); Basophils % (A) 1 %; Eosinophils # (A) 0.1 k/uL (0-0.7); Eosinophils % (A) 1 %; HCT 43.8 % (34.0-46.0); HGB 14.5 gm/dL (11.4-16.0); Lymphocytes % (A) 10 %; MCH 29.1 pg (25.0-35.0); MCHC 33.1 g/dL (31.0-37.0); MCV 87.9 fL (80.0-100.0); Monocytes # (A) 0.5 k/uL (0-1.0); Monocytes % (A) 5 %; Neutrophils # (A) 8.3 k/uL (1.3-7.7); Neutrophils % (A) 82 %; Platelet Count 275 k/uL (150-450); RBC 4.98 m/uL (3.80-5.40); RDW 13.2 % (11.5-15.5); WBC 10.1 k/uL (3.8-10.6)
--- NOTE | 2020-08-22 12:54 | ED ---
URI HPI - General Chief Complaint: Upper Respiratory Infection Stated Complaint: Cough Time Seen by Provider: 08/22/20 11:59 Source: patient, RN notes reviewed Mode of arrival: wheelchair Limitations: no limitations - History of Present Illness Initial Comments: Patient is a 65-year-old female presents to emergency room complaining of chest congestion and just feeling not well. She notes that she's been try to eat soups and liquids to stay hydrated. She notes that she's been cramping more recently as she has not noted intake and of fluids. She was a well-appearing 65-year-old female sitting up in bed during the exam interview. She was in no apparent distress or pain. She denied any other symptoms on his chest congestion with a mildly productive cough of a yellow sputum. She denied any chest pain headache nausea vomiting diarrhea constipation fever fatigue. - Related Data Home Medications Medication Instructions Recorded Confirmed amLODIPine BESYLATE/BENAZEPRIL 1 cap PO DAILY 09/25/13 12/06/16 [Amlodipine-Benazepril 10-40 mg] Albuterol Inhaler (Mhu) [Ventolin 2 puff INHALATION RT-Q4H PRN 07/08/15 12/06/16 Hfa Inhaler (Mhu)] Budesonide [Pulmicort Flexhaler] 2 puff INHALATION RT-BID 12/06/16 12/06/16 Cholecalciferol [Vitamin D3] 1,000 unit PO DAILY 12/06/16 12/06/16 Cyanocobalamin (Vitamin B-12) 1,000 mcg PO DAILY 12/06/16 12/06/16 [Vitamin B-12] Gabapentin [Neurontin] 300 mg PO BID 12/06/16 12/06/16 Ibuprofen [Motrin] 400 mg PO Q8HR PRN 12/06/16 12/06/16 Previous Rx's Medication Instructions Recorded Famotidine [Pepcid] 20 mg PO DAILY #3 tablet 12/06/16 predniSONE [Deltasone] 20 mg PO DAILY #3 tab 12/06/16 Omeprazole 40 mg PO DAILY #14 capsule. 11/22/17 Cyclobenzaprine [Flexeril] 10 mg PO TID #15 tab 03/21/19 Ibuprofen [Motrin] 600 mg PO Q8HR PRN #20 tab 03/21/19 Amoxic-Pot Clav 875-125Mg 1 tab PO Q12HR 3 Days #6 tab 05/24/19 [Augmentin 875-125] predniSONE [Deltasone] 20 mg PO BID #10 tab 05/24/19 Allergies Allergy/AdvReac Type Severity Reaction Status Date / Time erythromycin base AdvReac Nausea Verified 08/22/20 11:22 [Erythromycin Base] Review of Systems ROS Statement: Those systems with pertinent positive or pertinent negative responses have been documented in the HPI. ROS Other: All systems not noted in ROS Statement are negative. Past Medical History Past Medical History: Eye Disorder, Hypertension, Osteoarthritis (OA) Additional Past Medical History / Comment(s): Osteoporosis, Lower Back Pain, Sciatica., TOLD YEARS AGO SHE HAD HEART MURMUR- NO TX, HX ACUTE BRONCHITIS(SMOKER), GLASSES DAILY USE History of Any Multi-Drug Resistant Organisms: None Reported Past Surgical History: Orthopedic Surgery, Tubal Ligation Additional Past Surgical History / Comment(s): 2 pins right hip-dislocated 1975 Past Anesthesia/Blood Transfusion Reactions: No Reported Reaction Past Psychological History: Anxiety, Depression Smoking Status: Current every day smoker Past Alcohol Use History: Occasional Past Drug Use History: None Reported - Past Family History Mother Family Medical History: Liver Disease Father Family Medical History: Cancer Additional Family Medical History / Comment(s): Lung and liver cancer. General Exam Limitations: no limitations General appearance: alert, in no apparent distress Head exam: Present: atraumatic, normocephalic, normal inspection Eye exam: Present: normal appearance, PERRL, EOMI. Absent: scleral icterus, conjunctival injection, periorbital swelling Neck exam: Present: normal inspection Respiratory exam: Present: normal lung sounds bilaterally. Absent: respiratory distress, wheezes, rales, rhonchi, stridor Cardiovascular Exam: Present: regular rate, normal rhythm, normal heart sounds. Absent: systolic murmur, diastolic murmur, rubs, gallop, clicks GI/Abdominal exam: Present: soft, normal bowel sounds. Absent: distended, tenderness, guarding, rebound, rigid Extremities exam: Present: normal inspection, full ROM, normal capillary refill. Absent: tenderness, pedal edema, joint swelling, calf tenderness Neurological exam: Present: alert, oriented X3, CN II-XII intact Psychiatric exam: Present: normal affect, normal mood Skin exam: Present: warm, dry, intact, normal color. Absent: rash Course Vital Signs 08/22/20 08/22/20 11:19 12:08 Temperature 98.8 F Pulse Rate 54 L Respiratory 16 20 Rate Blood Pressure 120/81 O2 Sat by Pulse 99 Oximetry Medical Decision Making - Medical Decision Making 65-year-old female complaining of chest congestion with yellow sputum. Labs, Covid test, normal saline, chest x-ray ordered. Labs: Sodium 129, potassium 3.1, calcium 7.7. Urinalysis shows dehydration pattern. 40 mEq of potassium ordered. Case discussed with Dr. Mccloud, patient can discharge home follow-up primary care. - Lab Data Result diagrams: 08/22/20 12:09 08/22/20 12:09 Lab Results 08/22/20 08/22/20 08/22/20 Range/Units 11:25 12:09 12:09 WBC 10.1 (3.8-10.6) k/uL RBC 4.98 (3.80-5.40) m/uL Hgb 14.5 (11.4-16.0) gm/dL Hct 43.8 (34.0-46.0) % MCV 87.9 (80.0-100.0) fL MCH 29.1 (25.0-35.0) pg MCHC 33.1 (31.0-37.0) g/dL RDW 13.2 (11.5-15.5) % Plt Count 275 (150-450) k/uL MPV 8.0 Neutrophils % 82 % Lymphocytes % 10 % Monocytes % 5 % Eosinophils % 1 % Basophils % 1 % Neutrophils # 8.3 H (1.3-7.7) k/uL Lymphocytes # 1.0 (1.0-4.8) k/uL Monocytes # 0.5 (0-1.0) k/uL Eosinophils # 0.1 (0-0.7) k/uL Basophils # 0.1 (0-0.2) k/uL Sodium (137-145) mmol/L Potassium (3.5-5.1) mmol/L Chloride (98-107) mmol/L Carbon Dioxide (22-30) mmol/L Anion Gap mmol/L BUN (7-17) mg/dL Creatinine (0.52-1.04) mg/dL Est GFR (CKD-EPI)AfAm (>60 ml/min/1.73 sqM) Est GFR (CKD-EPI)NonAf (>60 ml/min/1.73 sqM) Glucose (74-99) mg/dL Calcium (8.4-10.2) mg/dL Urine Color Light [place] Urine Appearance Cloudy H (Clear) Urine pH 5.5 (5.0-8.0) Ur Specific [place] 1.029 (1.001-1.035) Urine Protein 1+ H (Negative) Urine Glucose (UA) Trace H (Negative) Urine Ketones Trace H (Negative) Urine Blood Negative (Negative) Urine Nitrite Negative (Negative) Urine Bilirubin 1+ H (Negative) Urine Urobilinogen 8.0 (<2.0) mg/dL Ur Leukocyte Esterase Negative (Negative) Urine RBC 1 (0-5) /hpf Urine WBC 2 (0-5) /hpf Ur Squamous Epith Cells 5 H (0-4) /hpf Cellular Casts 4 (0) /lpf Hyaline Casts 92 H (0-2) /lpf Urine Mucus Few H (None) /hpf Coronavirus (PCR) Not Detected (Not Detectd) 08/22/20 Range/Units 12:09 WBC (3.8-10.6) k/uL RBC (3.80-5.40) m/uL Hgb (11.4-16.0) gm/dL Hct (34.0-46.0) % MCV (80.0-100.0) fL MCH (25.0-35.0) pg MCHC (31.0-37.0) g/dL RDW (11.5-15.5) % Plt Count (150-450) k/uL MPV Neutrophils % % Lymphocytes % % Monocytes % % Eosinophils % % Basophils % % Neutrophils # (1.3-7.7) k/uL Lymphocytes # (1.0-4.8) k/uL Monocytes # (0-1.0) k/uL Eosinophils # (0-0.7) k/uL Basophils # (0-0.2) k/uL Sodium 129 L (137-145) mmol/L Potassium 3.1 L (3.5-5.1) mmol/L Chloride 105 (98-107) mmol/L Carbon Dioxide 18 L (22-30) mmol/L Anion Gap 6 mmol/L BUN 4 L (7-17) mg/dL Creatinine 0.54 (0.52-1.04) mg/dL Est GFR (CKD-EPI)AfAm >90 (>60 ml/min/1.73 sqM) Est GFR (CKD-EPI)NonAf >90 (>60 ml/min/1.73 sqM) Glucose 124 H (74-99) mg/dL Calcium 7.7 L (8.4-10.2) mg/dL Urine Color Urine Appearance (Clear) Urine pH (5.0-8.0) Ur Specific [place] (1.001-1.035) Urine Protein (Negative) Urine Glucose (UA) (Negative) Urine Ketones (Negative) Urine Blood (Negative) Urine Nitrite (Negative) Urine Bilirubin (Negative) Urine Urobilinogen (<2.0) mg/dL Ur Leukocyte Esterase (Negative) Urine RBC (0-5) /hpf Urine WBC (0-5) /hpf Ur Squamous Epith Cells (0-4) /hpf Cellular Casts (0) /lpf Hyaline Casts (0-2) /lpf Urine Mucus (None) /hpf Coronavirus (PCR) (Not Detectd) - Radiology Data Radiology results: report reviewed, image reviewed Chest x-ray: No acute process. Disposition Clinical Impression: Upper respiratory tract infection, Dehydration, Hypokalemia Disposition: HOME SELF-CARE Condition: Stable Instructions (If sedation given, give patient instructions): Upper Respiratory Infection (ED) Additional Instructions: Please return to the Emergency Department if symptoms worsen or any other concerns. Follow-up with primary care in the next 3-5 days. Increase oral fluid intake. Eat plenty of fluids. Get plenty rest. Is patient prescribed a controlled substance at d/c from ED?: No Referrals: None,Stated [Primary Care Provider] - 1-2 days Time of Disposition: 13:20
[2020-08-22 12:56] LABS: Appearance,Urine Cloudy (Clear); Bilirubin,Urine 1+ (Negative); Blood,Urine Negative (Negative); Cellular Casts,Urine 4 /lpf (0); Color,Urine Light Orange; Glucose,Urine (UA) Trace (Negative); Hyaline Casts,Urine 92 /lpf (0-2); Ketones,Urine Trace (Negative); Leukocyte Esterase,Urine Negative (Negative); Mucus,Urine Few /hpf; Nitrite,Urine Negative (Negative); PH, Urine 5.5 (5.0-8.0); Protein,Urine 1+ (Negative); RBC,Urine 1 /hpf (0-5); Specific Gravity,Urine 1.029 (1.001-1.035); Squamous Epithelial Cell,Urine 5 /hpf (0-4); WBC,Urine 2 /hpf (0-5)
[2020-08-22] MEDS ORDERED: POTASSIUM CHLORIDE ER 20 MEQ TAB.ER PO STA ×2 (13:01→13:13)
[2020-08-22 14:39] VITALS: BP 136/79; PULSE 89; RESP 16
== END 2020-08-22 14:39 | disposition home or self-care (01) ==
LOC: EC 11:02
DX: J06.9 Acute upper respiratory infection, unspecified (principal); E86.0 Dehydration; E87.6 Hypokalemia; I10 Essential (primary) hypertension; F17.200 Nicotine dependence, unspecified, uncomplicated; M19.90 Unspecified osteoarthritis, unspecified site; Z79.1 Long term (current) use of non-steroidal anti-inflammatories (NSAID); Z79.899 Other long term (current) drug therapy; Z88.1 Allergy status to other antibiotic agents; Z20.822 Contact with and (suspected) exposure to COVID-19
CPT/HCPCS: 36415; 71046; 80048; 81001; 85025; 87635; 96360; 99283

== ENCOUNTER 2020-09-07 | Inpatient (IN) | payer MEDICARE, OTHER | END 2020-09-07 13:07 | disposition home or self-care (01) | DRG 916 | PROVIDERS: ADMIT Internal Medicine | DX: T78.09XA Anaphylactic reaction due to other food products, initial encounter (principal); E87.6 Hypokalemia; F17.210 Nicotine dependence, cigarettes, uncomplicated; F32.9 Major depressive disorder, single episode, unspecified; F41.9 Anxiety disorder, unspecified; G89.29 Other chronic pain; I11.9 Hypertensive heart disease without heart failure; I16.0 Hypertensive urgency; R00.0 Tachycardia, unspecified; J20.9 Acute bronchitis, unspecified; K83.8 Other specified diseases of biliary tract; K86.89 Other specified diseases of pancreas; M19.90 Unspecified osteoarthritis, unspecified site; M81.0 Age-related osteoporosis without current pathological fracture; M54.30 Sciatica, unspecified side; Z20.822 Contact with and (suspected) exposure to COVID-19; Z79.899 Other long term (current) drug therapy; Z98.51 Tubal ligation status; Z71.41 Alcohol abuse counseling and surveillance of alcoholic; R94.5 Abnormal results of liver function studies; Z88.1 Allergy status to other antibiotic agents; Z81.1 Family history of alcohol abuse and dependence; Z83.3 Family history of diabetes mellitus; Z80.1 Family history of malignant neoplasm of trachea, bronchus and lung; Z80.0 Family history of malignant neoplasm of digestive organs; Z79.51 Long term (current) use of inhaled steroids | CPT/HCPCS: 36415; 71045; 74181; 76705; 80048; 80053; 80074; 83036; 83735; 85025; 87635; 93005; 94640; 96361; 96365; 96375; 99291 ==

== ENCOUNTER 2020-09-23 22:16 | Inpatient (IN) | payer MEDICARE, OTHER ==
--- NOTE | 2020-09-23 22:36 | ED ---
Abdominal Pain HPI - General Chief Complaint: Abdominal Pain Stated Complaint: Revisit, Abd Pain Time Seen by Provider: 09/23/20 22:36 Source: patient, RN notes reviewed, old records reviewed Mode of arrival: ambulatory Limitations: no limitations - History of Present Illness Initial Comments: This is a 65-year-old female DF for evaluation patient Dese for evaluation of weakness abdominal pain unable to keep any medication down. Patient has no travel history or sick contacts. Recent diagnosis of pancreatic mass. Patient has been recently unable to eat unable to drink. MD Complaint: abdominal pain -: days(s) Location: diffuse, periumbilical, epigastric Radiation: epigastric Migration to: epigastric Severity: moderate Severity scale (1-10): 4 Quality: stabbing Consistency: intermittent Improves With: nothing Worsens With: nothing Context: recent surgery/procedure Associated Symptoms: nausea, vomiting Treatments Prior to Arrival: other (none) - Related Data Home Medications Medication Instructions Recorded Confirmed amLODIPine BESYLATE/BENAZEPRIL 1 cap PO DAILY 09/25/13 09/24/20 [amLODIPine BESYLATE/BENAZEPRIL 10-40 MG] Gabapentin [Neurontin] 300 mg PO BID PRN 12/06/16 09/24/20 Albuterol Sulfate [Albuterol 2 puff INHALATION RT-Q4H PRN 09/04/20 09/24/20 Sulfate Hfa] Omeprazole 40 mg PO DAILY 09/24/20 09/24/20 Previous Rx's Medication Instructions Recorded metFORMIN HCL [Glucophage Xr] 500 mg PO DAILY #30 tab 09/06/20 Allergies Allergy/AdvReac Type Severity Reaction Status Date / Time erythromycin base AdvReac Nausea Verified 09/24/20 08:23 [Erythromycin Base] Review of Systems ROS Statement: Those systems with pertinent positive or pertinent negative responses have been documented in the HPI. ROS Other: All systems not noted in ROS Statement are negative. Past Medical History Past Medical History: Eye Disorder, Hypertension, Osteoarthritis (OA) Additional Past Medical History / Comment(s): Osteoporosis, Lower Back Pain, Sciatica., TOLD YEARS AGO SHE HAD HEART MURMUR- NO TX, HX ACUTE BRONCHITIS(SMOKER), GLASSES DAILY USE History of Any Multi-Drug Resistant Organisms: None Reported Past Surgical History: Orthopedic Surgery, Tubal Ligation Additional Past Surgical History / Comment(s): 2 pins right hip-dislocated 1975 Past Anesthesia/Blood Transfusion Reactions: No Reported Reaction Past Psychological History: Anxiety, Depression Smoking Status: Current every day smoker Past Alcohol Use History: Daily Past Drug Use History: None Reported - Past Family History Mother Family Medical History: Liver Disease Father Family Medical History: Cancer Additional Family Medical History / Comment(s): Lung and liver cancer. General Exam Limitations: no limitations General appearance: alert, in no apparent distress Head exam: Present: atraumatic, normocephalic, normal inspection Eye exam: Present: normal appearance, PERRL, EOMI. Absent: scleral icterus, conjunctival injection, periorbital swelling ENT exam: Present: normal exam, mucous membranes moist Neck exam: Present: normal inspection. Absent: tenderness, meningismus, l ymphadenopathy Respiratory exam: Present: normal lung sounds bilaterally. Absent: respiratory distress, wheezes, rales, rhonchi, stridor Cardiovascular Exam: Present: regular rate, normal rhythm, normal heart sounds. Absent: systolic murmur, diastolic murmur, rubs, gallop, clicks GI/Abdominal exam: Present: soft, normal bowel sounds. Absent: distended, tenderness, guarding, rebound, rigid Extremities exam: Present: normal inspection, full ROM, normal capillary refill. Absent: tenderness, pedal edema, joint swelling, calf tenderness Back exam: Present: normal inspection Neurological exam: Present: alert, oriented X3, CN II-XII intact Psychiatric exam: Present: normal affect, normal mood Skin exam: Present: warm, dry, intact, normal color. Absent: rash Course Vital Signs 09/23/20 09/23/20 22:30 23:32 Temperature 97.8 F Pulse Rate 95 68 Respiratory 20 18 Rate Blood Pressure 168/88 144/77 O2 Sat by Pulse 99 96 Oximetry - Reevaluation(s) Reevaluation #1: Medical records reviewed Patient symptoms are improved significantly here in the ER Patient in no acute distress Patient informed of results and questions answered Medical Decision Making - Medical Decision Making 65 female to the ER for evaluation of abdominal pain. Patient has known history of likely pancreatic mass. Patient had pain today symptoms were improving post discharge. Patient will be admitted for pain control symptom management - Lab Data Result diagrams: 09/25/20 07:18 09/25/20 07:18 Lab Results 09/23/20 09/23/20 09/23/20 Range/Units 22:52 22:52 22:52 WBC 10.4 (3.8-10.6) k/uL RBC 4.27 (3.80-5.40) m/uL Hgb 12.1 (11.4-16.0) gm/dL Hct 37.0 (34.0-46.0) % MCV 86.5 (80.0-100.0) fL MCH 28.4 (25.0-35.0) pg MCHC 32.8 (31.0-37.0) g/dL RDW 13.4 (11.5-15.5) % Plt Count 410 (150-450) k/uL MPV 7.1 Immature Gran % (Auto) % Absolute Nucleated RBC (0.00-0.00) X 10*3/uL Neutrophils % 75 % Lymphocytes % 16 % Monocytes % 4 % Eosinophils % 2 % Basophils % 1 % Immature Gran # (0.00-0.04) X 10*3/uL Neutrophils # 7.7 (1.3-7.7) k/uL Lymphocytes # 1.6 (1.0-4.8) k/uL Monocytes # 0.5 (0-1.0) k/uL Eosinophils # 0.2 (0-0.7) k/uL Basophils # 0.1 (0-0.2) k/uL NRBC/100 WBC Diff (0.0-0.0) /100 WBCS PT 9.3 (9.0-12.0) sec INR 0.8 (<1.2) APTT 20.9 L (22.0-30.0) sec Sodium 130 L (137-145) mmol/L Potassium 3.8 (3.5-5.1) mmol/L Chloride 100 (98-107) mmol/L Carbon Dioxide 20 L (22-30) mmol/L Anion Gap 10 mmol/L BUN 5 L (7-17) mg/dL Creatinine 0.38 L (0.52-1.04) mg/dL Est GFR (CKD-EPI)AfAm >90 (>60 ml/min/1.73 sqM) Est GFR (CKD-EPI)NonAf >90 (>60 ml/min/1.73 sqM) Glucose 259 H (74-99) mg/dL POC Glucose (mg/dL) (75-99) mg/dL POC Glu Clinical Laboratory Director ID Calcium 10.1 (8.4-10.2) mg/dL Total Bilirubin 2.4 H (0.2-1.3) mg/dL AST 501 H (14-36) U/L ALT 462 H (4-34) U/L Alkaline Phosphatase 778 H (38-126) U/L Total Protein 6.8 (6.3-8.2) g/dL Albumin 4.3 (3.5-5.0) g/dL Globulin g/dL Albumin/Globulin Ratio Amylase 54 (30-110) U/L Lipase 169 (23-300) U/L Coronavirus (PCR) (Not Detectd) 09/24/20 09/24/20 09/24/20 Range/Units 01:32 07:10 08:56 WBC (3.8-10.6) k/uL RBC (3.80-5.40) m/uL Hgb (11.4-16.0) gm/dL Hct (34.0-46.0) % MCV (80.0-100.0) fL MCH (25.0-35.0) pg MCHC (31.0-37.0) g/dL RDW (11.5-15.5) % Plt Count (150-450) k/uL MPV Immature Gran % (Auto) % Absolute Nucleated RBC (0.00-0.00) X 10*3/uL Neutrophils % % Lymphocytes % % Monocytes % % Eosinophils % % Basophils % % Immature Gran # (0.00-0.04) X 10*3/uL Neutrophils # (1.3-7.7) k/uL Lymphocytes # (1.0-4.8) k/uL Monocytes # (0-1.0) k/uL Eosinophils # (0-0.7) k/uL Basophils # (0-0.2) k/uL NRBC/100 WBC Diff (0.0-0.0) /100 WBCS PT (9.0-12.0) sec INR (<1.2) APTT (22.0-30.0) sec Sodium 132 L (137-145) mmol/L Potassium 3.4 L (3.5-5.1) mmol/L Chloride 101 (98-107) mmol/L Carbon Dioxide 25 (22-30) mmol/L Anion Gap 6 mmol/L BUN 4 L (7-17) mg/dL Creatinine 0.40 L (0.52-1.04) mg/dL Est GFR (CKD-EPI)AfAm >90 (>60 ml/min/1.73 sqM) Est GFR (CKD-EPI)NonAf >90 (>60 ml/min/1.73 sqM) Glucose 177 H (74-99) mg/dL POC Glucose (mg/dL) 234 H 203 H (75-99) mg/dL POC Glu Clinical Laboratory Director ID Thuy Olea Sydney Calcium 9.6 (8.4-10.2) mg/dL Total Bilirubin 2.7 H (0.2-1.3) mg/dL AST 644 H (14-36) U/L ALT 523 H (4-34) U/L Alkaline Phosphatase 642 H (38-126) U/L Total Protein 6.1 L (6.3-8.2) g/dL Albumin 3.7 (3.5-5.0) g/dL Globulin 2.4 g/dL Albumin/Globulin Ratio 1.5 Amylase (30-110) U/L Lipase (23-300) U/L Coronavirus (PCR) (Not Detectd) 09/24/20 09/24/20 09/24/20 Range/Units 11:49 15:10 16:24 WBC (3.8-10.6) k/uL RBC (3.80-5.40) m/uL Hgb (11.4-16.0) gm/dL Hct (34.0-46.0) % MCV (80.0-100.0) fL MCH (25.0-35.0) pg MCHC (31.0-37.0) g/dL RDW (11.5-15.5) % Plt Count (150-450) k/uL MPV Immature Gran % (Auto) % Absolute Nucleated RBC (0.00-0.00) X 10*3/uL Neutrophils % % Lymphocytes % % Monocytes % % Eosinophils % % Basophils % % Immature Gran # (0.00-0.04) X 10*3/uL Neutrophils # (1.3-7.7) k/uL Lymphocytes # (1.0-4.8) k/uL Monocytes # (0-1.0) k/uL Eosinophils # (0-0.7) k/uL Basophils # (0-0.2) k/uL NRBC/100 WBC Diff (0.0-0.0) /100 WBCS PT (9.0-12.0) sec INR (<1.2) APTT (22.0-30.0) sec Sodium (137-145) mmol/L Potassium (3.5-5.1) mmol/L Chloride (98-107) mmol/L Carbon Dioxide (22-30) mmol/L Anion Gap mmol/L BUN (7-17) mg/dL Creatinine (0.52-1.04) mg/dL Est GFR (CKD-EPI)AfAm (>60 ml/min/1.73 sqM) Est GFR (CKD-EPI)NonAf (>60 ml/min/1.73 sqM) Glucose (74-99) mg/dL POC Glucose (mg/dL) 160 H 212 H (75-99) mg/dL POC Glu Clinical Laboratory Director ID Callaway, Emilee Callaway, Emilee Calcium (8.4-10.2) mg/dL Total Bilirubin (0.2-1.3) mg/dL AST (14-36) U/L ALT (4-34) U/L Alkaline Phosphatase (38-126) U/L Total Protein (6.3-8.2) g/dL Albumin (3.5-5.0) g/dL Globulin g/dL Albumin/Globulin Ratio Amylase (30-110) U/L Lipase (23-300) U/L Coronavirus (PCR) Not Detected (Not Detectd) 09/24/20 09/24/20 09/25/20 Range/Units 20:41 21:31 07:11 WBC (3.8-10.6) k/uL RBC (3.80-5.40) m/uL Hgb (11.4-16.0) gm/dL Hct (34.0-46.0) % MCV (80.0-100.0) fL MCH (25.0-35.0) pg MCHC (31.0-37.0) g/dL RDW (11.5-15.5) % Plt Count (150-450) k/uL MPV Immature Gran % (Auto) % Absolute Nucleated RBC (0.00-0.00) X 10*3/uL Neutrophils % % Lymphocytes % % Monocytes % % Eosinophils % % Basophils % % Immature Gran # (0.00-0.04) X 10*3/uL Neutrophils # (1.3-7.7) k/uL Lymphocytes # (1.0-4.8) k/uL Monocytes # (0-1.0) k/uL Eosinophils # (0-0.7) k/uL Basophils # (0-0.2) k/uL NRBC/100 WBC Diff (0.0-0.0) /100 WBCS PT (9.0-12.0) sec INR (<1.2) APTT (22.0-30.0) sec Sodium (137-145) mmol/L Potassium (3.5-5.1) mmol/L Chloride (98-107) mmol/L Carbon Dioxide (22-30) mmol/L Anion Gap mmol/L BUN (7-17) mg/dL Creatinine (0.52-1.04) mg/dL Est GFR (CKD-EPI)AfAm (>60 ml/min/1.73 sqM) Est GFR (CKD-EPI)NonAf (>60 ml/min/1.73 sqM) Glucose (74-99) mg/dL POC Glucose (mg/dL) 263 H 319 H 215 H (75-99) mg/dL POC Glu Clinical Laboratory Director GABE Lugo, Shaun Myrnaphillip, Maddie Amita Marsha Calcium (8.4-10.2) mg/dL Total Bilirubin (0.2-1.3) mg/dL AST (14-36) U/L ALT (4-34) U/L Alkaline Phosphatase (38-126) U/L Total Protein (6.3-8.2) g/dL Albumin (3.5-5.0) g/dL Globulin g/dL Albumin/Globulin Ratio Amylase (30-110) U/L Lipase (23-300) U/L Coronavirus (PCR) (Not Detectd) 09/25/20 09/25/20 09/25/20 Range/Units 07:18 07:18 11:56 WBC 8.66 (3.8-10.6) k/uL RBC 4.18 (3.80-5.40) m/uL Hgb 11.9 L (11.4-16.0) gm/dL Hct 34.9 L (34.0-46.0) % MCV 83.5 (80.0-100.0) fL MCH 28.5 (25.0-35.0) pg MCHC 34.1 (31.0-37.0) g/dL RDW 13.5 (11.5-15.5) % Plt Count 423 (150-450) k/uL MPV 10.5 Immature Gran % (Auto) 0.3 % Absolute Nucleated RBC 0 (0.00-0.00) X 10*3/uL Neutrophils % 71.9 % Lymphocytes % 18.1 % Monocytes % 7.2 % Eosinophils % 1.5 % Basophils % 1.0 % Immature Gran # 0.03 (0.00-0.04) X 10*3/uL Neutrophils # 6.22 (1.3-7.7) k/uL Lymphocytes # 1.57 (1.0-4.8) k/uL Monocytes # 0.62 (0-1.0) k/uL Eosinophils # 0.13 (0-0.7) k/uL Basophils # 0.09 (0-0.2) k/uL NRBC/100 WBC Diff 0 (0.0-0.0) /100 WBCS PT (9.0-12.0) sec INR (<1.2) APTT (22.0-30.0) sec Sodium 131 L (137-145) mmol/L Potassium 4.0 (3.5-5.1) mmol/L Chloride 100 (98-107) mmol/L Carbon Dioxide 24 (22-30) mmol/L Anion Gap 7 mmol/L BUN 4 L (7-17) mg/dL Creatinine 0.35 L (0.52-1.04) mg/dL Est GFR (CKD-EPI)AfAm >90 (>60 ml/min/1.73 sqM) Est GFR (CKD-EPI)NonAf >90 (>60 ml/min/1.73 sqM) Glucose 217 H (74-99) mg/dL POC Glucose (mg/dL) 253 H (75-99) mg/dL POC Glu Clinical Laboratory Director ID Mary Alice Kelsey Calcium 10.0 (8.4-10.2) mg/dL Total Bilirubin 3.4 H (0.2-1.3) mg/dL AST 464 H (14-36) U/L ALT 498 H (4-34) U/L Alkaline Phosphatase 772 H (38-126) U/L Total Protein 6.3 (6.3-8.2) g/dL Albumin 3.9 (3.5-5.0) g/dL Globulin 2.4 g/dL Albumin/Globulin Ratio 1.6 Amylase (30-110) U/L Lipase (23-300) U/L Coronavirus (PCR) (Not Detectd) 09/25/20 09/25/20 09/26/20 Range/Units 16:35 20:02 07:05 WBC (3.8-10.6) k/uL RBC (3.80-5.40) m/uL Hgb (11.4-16.0) gm/dL Hct (34.0-46.0) % MCV (80.0-100.0) fL MCH (25.0-35.0) pg MCHC (31.0-37.0) g/dL RDW (11.5-15.5) % Plt Count (150-450) k/uL MPV Immature Gran % (Auto) % Absolute Nucleated RBC (0.00-0.00) X 10*3/uL Neutrophils % % Lymphocytes % % Monocytes % % Eosinophils % % Basophils % % Immature Gran # (0.00-0.04) X 10*3/uL Neutrophils # (1.3-7.7) k/uL Lymphocytes # (1.0-4.8) k/uL Monocytes # (0-1.0) k/uL Eosinophils # (0-0.7) k/uL Basophils # (0-0.2) k/uL NRBC/100 WBC Diff (0.0-0.0) /100 WBCS PT (9.0-12.0) sec INR (<1.2) APTT (22.0-30.0) sec Sodium (137-145) mmol/L Potassium (3.5-5.1) mmol/L Chloride (98-107) mmol/L Carbon Dioxide (22-30) mmol/L Anion Gap mmol/L BUN (7-17) mg/dL Creatinine (0.52-1.04) mg/dL Est GFR (CKD-EPI)AfAm (>60 ml/min/1.73 sqM) Est GFR (CKD-EPI)NonAf (>60 ml/min/1.73 sqM) Glucose (74-99) mg/dL POC Glucose (mg/dL) 294 H 87 229 H (75-99) mg/dL POC Glu Clinical Laboratory Director Mary Alice Mojica, Marsha Ward Calcium (8.4-10.2) mg/dL Total Bilirubin (0.2-1.3) mg/dL AST (14-36) U/L ALT (4-34) U/L Alkaline Phosphatase (38-126) U/L Total Protein (6.3-8.2) g/dL Albumin (3.5-5.0) g/dL Globulin g/dL Albumin/Globulin Ratio Amylase (30-110) U/L Lipase (23-300) U/L Coronavirus (PCR) (Not Detectd) - EKG Data -: EKG Interpreted by Me (EKG is sinus tachycardia 109 WI 180 QRS 106 QTc 452) Disposition Clinical Impression: Elevated LFTs, Dilation of common bile duct, Abdominal pain Disposition: ADMITTED IP TO THIS HOSP Condition: Fair Is patient prescribed a controlled substance at d/c from ED?: No
[2020-09-23] MEDS ORDERED: KETOROLAC 15 MG/ML 1 ML VIAL IVP STA (22:38)
[2020-09-23] MEDS ORDERED: SODIUM CHLORIDE 0.9% 1,000 ML IV STA (22:38)
[2020-09-23] MEDS ORDERED: HYDROmorphone 0.5 MG/0.5 ML SYRINGE IVP STA (22:38)
[2020-09-23 23:06] LABS: Basophils # (A) 0.1 k/uL (0-0.2); Basophils % (A) 1 %; Eosinophils # (A) 0.2 k/uL (0-0.7); Eosinophils % (A) 2 %; HGB 12.1 gm/dL (11.4-16.0); Lymphocytes # (A) 1.6 k/uL (1.0-4.8); Lymphocytes % (A) 16 %; MCH 28.4 pg (25.0-35.0); MCHC 32.8 g/dL (31.0-37.0); MCV 86.5 fL (80.0-100.0); Mean Platelet Volume 7.1; Monocytes # (A) 0.5 k/uL (0-1.0); Monocytes % (A) 4 %; Neutrophils # (A) 7.7 k/uL (1.3-7.7); Neutrophils % (A) 75 %; Platelet Count 410 k/uL (150-450); RBC 4.27 m/uL (3.80-5.40); RDW 13.4 % (11.5-15.5); WBC 10.4 k/uL (3.8-10.6)
[2020-09-23 23:16] LABS: ALT 462 U/L (4-34); AST 501 U/L (14-36); African American GFR (CKD) >90 (>60 ml/min/1.73 sqM); Albumin 4.3 g/dL (3.5-5.0); Alkaline Phosphatase 778 U/L (38-126); Amylase 54 U/L (30-110); Anion Gap 10 mmol/L; Blood Urea Nitrogen 5 mg/dL (7-17); Calcium 10.1 mg/dL (8.4-10.2); Carbon Dioxide 20 mmol/L (22-30); Chloride 100 mmol/L (98-107); Glucose 259 mg/dL (74-99); Lipase 169 U/L (23-300); Non-African American GFR(CKD) >90 (>60 ml/min/1.73 sqM); Potassium 3.8 mmol/L (3.5-5.1); Sodium 130 mmol/L (137-145); Total Bilirubin 2.4 mg/dL (0.2-1.3); Total Protein 6.8 g/dL (6.3-8.2)
[2020-09-23 23:20] LABS: INR 0.8 (<1.2); Prothrombin Time 9.3 sec (9.0-12.0)
[2020-09-23 23:32] LABS: Partial Thromboplastin Time 20.9 sec (22.0-30.0)
[2020-09-24] MEDS ORDERED: NALOXONE 0.4 MG/ML 1 ML VIAL IV PRN (00:22)
[2020-09-24] MEDS ORDERED: ONDANSETRON 4 MG/2 ML VIAL IVP PRN (00:23)
[2020-09-24 01:36] LABS: Glucose,Whole Blood 234 mg/dL (75-99)
[2020-09-24] MEDS: INSULIN ASPART (NovoLOG) 100 UNIT/ML VIAL SQ SCH ×5 (01:48→21:37)
[2020-09-24] MEDS: DEXTROSE 5%-0.45% NACL 1,000 ML IV SCH ×4 (06:27→21:38)
[2020-09-24 07:12] LABS: Glucose,Whole Blood 203 mg/dL (75-99)
[2020-09-24] MEDS: PANTOPRAZOLE 40 MG/10 ML VIAL IV SCH (07:43)
[2020-09-24 09:31] LABS: ALT 523 U/L (4-34); AST 644 U/L (14-36); African American GFR (CKD) >90 (>60 ml/min/1.73 sqM); Albumin 3.7 g/dL (3.5-5.0); Albumin/Globulin Ratio 1.5; Alkaline Phosphatase 642 U/L (38-126); Anion Gap 6 mmol/L; Blood Urea Nitrogen 4 mg/dL (7-17); Calcium 9.6 mg/dL (8.4-10.2); Carbon Dioxide 25 mmol/L (22-30); Chloride 101 mmol/L (98-107); Globulin 2.4 g/dL; Glucose 177 mg/dL (74-99); Non-African American GFR(CKD) >90 (>60 ml/min/1.73 sqM); Potassium 3.4 mmol/L (3.5-5.1); Sodium 132 mmol/L (137-145); Total Bilirubin 2.7 mg/dL (0.2-1.3); Total Protein 6.1 g/dL (6.3-8.2)
[2020-09-24] MEDS ORDERED: ALBUTEROL NEBULIZED 2.5 MG/3 ML INHALATION PRN (11:38)
[2020-09-24] MEDS ORDERED: NON FORMULARY DRUG (Omeprazole [Omeprazole] 40 MG Capsule.Dr) PO SCH (11:45)
[2020-09-24 11:50] LABS: Glucose,Whole Blood 160 mg/dL (75-99)
--- NOTE | 2020-09-24 11:52 | XR ---
Abdomen HISTORY: Abdominal pain and constipation 2 views the abdomen submitted and correlated to prior KUB 11/24/2018, MRCP 09/06/2020 There is a slight spinal curvature. Lung bases are clear. No evident bowel obstruction or pneumoperit oneum. Patient is normal. Postop change noted to the right proximal femur as on prior exam. Multiple calcifications are present in the region of the pancreas. Possible vascular calcifications in the pel vis. IMPRESSION: Findings likely representing chronic pancreatitis.
[2020-09-24] MEDS: amLODIPine 10 MG TAB PO SCH (12:31)
[2020-09-24] MEDS: POTASSIUM CHLORIDE 10 MEQ in WATER FOR INJECTION 1 100ML.BAG IVPB SCH ×2 (12:31→13:06)
[2020-09-24] MEDS: lisinopriL 20 MG TAB PO SCH (12:31)
[2020-09-24] MEDS: GABAPENTIN 300 MG CAP PO PRN (12:31)
[2020-09-24] MEDS ORDERED: POTASSIUM CHLORIDE ER 20 MEQ TAB.ER PO STA (13:05)
[2020-09-24] MEDS ORDERED: MAGNESIUM CITRATE 296 ML BOTTLE PO ONE (13:55)
[2020-09-24 14:18] VITALS: BMI 18.1
--- NOTE | 2020-09-24 15:29 | P.CONS ---
History of Present Illness - Reason for Consult Consult date: 09/24/20 Pancreatic mass, elevated LFTs Requesting physician: Yvrose Brito - Chief Complaint Abdominal pain - History of Present Illness This is a pleasant 65-year-old -[place] female who presented to the hospital today with worsening abdominal pain. Her past medical history includes hypertension and osteoarthritis. She states she started having abdominal pain last week, she spent 2 days in bed and yesterday became significantly worse. She's had decreased appetite. She states she has not had a bowel movement in several days. She denies any nausea or vomiting. The patient was recently hospitalized in mid August for an ALLERGIC reaction to jellybeans and was found to have elevated LFTs. During her workup in the emergency department she was found to have elevation in her liver enzymes and subsequently an abdominal ultrasound was ordered which found a dilated common bile duct pancreatic head. MRCP could be obtained if clinically warranted. Both the liver and gallbladder are within normal limits. She underwent an MRCP during that admission that showed con firmation of mild to moderate biliary dilation and moderate pancreatic ductal dilation with abrupt cutoff, there is suspected 3.8 cm pancreatic head mass or neoplasm. The patient states she has no prior history of liver disease, date she was told about 3 years ago that she had elevated liver enzymes. She does admit to heavy alcohol use for many years. She was drinking beer daily. She does state her mother at age 41 for cirrhosis of the liver related to alcoholism and diabetes. During her last admission transfer to tertiary center for further evaluation was discussed with patient however she refused at that time. Patient states she has appointment scheduled with Dr. Rendon at [facility] on October 02. Admission labs include WBC 10.4, hemoglobin 12.1, hematocrit 37, platelet count 410,000, INR 0.8, total bilirubin 2.4, alkaline phosphatase 778, AST 501, ALT 462, amylase 54, lipase 169. Review of Systems REVIEW OF SYSTEMS: CARDIOPULMONARY: No chest pain or shortness of breath. Gastrointestinal: Abdominal pain. No nausea or vomiting. No hematemesis, coffee-ground emesis. No rectal bleeding, or melena. Constipation. Decreased appetite. GENITOURINARY: No dysuria or hematuria. MUSCULOSKELETAL: Reports normal range of motion., Joint pain. SKIN: No rashes. No jaundice. ENDOCRINE: No chills, fevers. No excessive weight gain or loss. No polydipsia or polyuria. PSYCHIATRIC: Unremarkable. NEUROLOGY: No change in mental status. Denies dizziness, headache. ENT: Vision unremarkable. CONSTITUTIONAL: No recent weight loss. No fever, chills, night sweats. Past Medical History Past Medical History: Eye Disorder, Hypertension, Osteoarthritis (OA) Additional Past Medical History / Comment(s): Osteoporosis, Lower Back Pain, Sciatica., TOLD YEARS AGO SHE HAD HEART MURMUR- NO TX, HX ACUTE BRONCHITIS(SMOKER), GLASSES DAILY USE History of Any Multi-Drug Resistant Organisms: None Reported Past Surgical History: Orthopedic Surgery, Tubal Ligation Additional Past Surgical History / Comment(s): 2 pins right hip-dislocated 1975 Past Anesthesia/Blood Transfusion Reactions: No Reported Reaction Past Psychological History: Anxiety, Depression Smoking Status: Current every day smoker Additional Past Alcohol Use History / Comment(s): started smoking @ age 17( 1971)- SMOKES SOMEDAYS WHEN SHE CAN AFFORD TO GET CIGARETTES Past Drug Use History: None Reported Additional Drug Use History / Comment(s): Quit drinking after her last discharge, 09/07/20 - Past Family History Mother Family Medical History: Liver Disease Father Family Medical History: Cancer Additional Family Medical History / Comment(s): Lung and liver cancer. Medications and Allergies Home Medications Medication Instructions Recorded Confirmed Type amLODIPine BESYLATE/BENAZEPRIL 1 cap PO DAILY 09/25/13 09/24/20 History [amLODIPine BESYLATE/BENAZEPRIL 10-40 MG] Gabapentin [Neurontin] 300 mg PO BID PRN 12/06/16 09/24/20 History Albuterol Sulfate [Albuterol 2 puff INHALATION RT-Q4H PRN 09/04/20 09/24/20 History Sulfate Hfa] metFORMIN HCL [Glucophage Xr] 500 mg PO DAILY #30 tab 09/06/20 09/24/20 Rx Omeprazole 40 mg PO DAILY 09/24/20 09/24/20 History Allergies Allergy/AdvReac Type Severity Reaction Status Date / Time erythromycin base AdvReac Nausea Verified 09/24/20 08:23 [Erythromycin Base] Physical Exam Vitals: Vital Signs Temp Pulse Pulse Resp BP BP Pulse Ox 09/24/20 08:18 98.6 F 74 16 174/90 99 09/24/20 05:48 152/84 09/24/20 02:00 97.5 F L 72 19 181/98 100 09/23/20 23:32 68 18 144/77 96 09/23/20 22:30 97.8 F 95 20 168/88 99 Intake and Output 09/23/20 09/24/20 09/24/20 22:59 06:59 14:59 Other: # Voids 1 Weight 52.345 kg 52.345 kg General appearance: The patient is alert, oriented, appears in no acute distress. HET: Head is normocephalic and atraumatic. Conjunctiva pink. Sclera anicteric. Neck: Supple without lymphadenopathy. Trachea midline. Heart: S1 S2. Regular rate and rhythm. Lungs: Clear to auscultation. Abdomen: Soft, diffuse tenderness, greatest in the epigastric region, nondistended with bowel sounds. No guarding or rigidity. Skin: No rashes. No jaundice. Extremities: Normal skin color and turgor. No pedal edema. Neurological: No focal deficits. Alert and oriented 3.. Results CBC & Chem 7: 09/23/20 22:52 09/24/20 08:56 Labs: Abnormal Lab Results - Last 24 Hours (Table) 09/23/20 09/23/20 09/24/20 Range/Units 22:52 22:52 01:32 APTT 20.9 L (22.0-30.0) sec Sodium 130 L (137-145) mmol/L Potassium (3.5-5.1) mmol/L Carbon Dioxide 20 L (22-30) mmol/L BUN 5 L (7-17) mg/dL Creatinine 0.38 L (0.52-1.04) mg/dL Glucose 259 H (74-99) mg/dL POC Glucose (mg/dL) 234 H (75-99) mg/dL Total Bilirubin 2.4 H (0.2-1.3) mg/dL AST 501 H (14-36) U/L ALT 462 H (4-34) U/L Alkaline Phosphatase 778 H (38-126) U/L Total Protein (6.3-8.2) g/dL 09/24/20 09/24/20 Range/Units 07:10 08:56 APTT (22.0-30.0) sec Sodium 132 L (137-145) mmol/L Potassium 3.4 L (3.5-5.1) mmol/L Carbon Dioxide (22-30) mmol/L BUN 4 L (7-17) mg/dL Creatinine 0.40 L (0.52-1.04) mg/dL Glucose 177 H (74-99) mg/dL POC Glucose (mg/dL) 203 H (75-99) mg/dL Total Bilirubin 2.7 H (0.2-1.3) mg/dL AST 644 H (14-36) U/L ALT 523 H (4-34) U/L Alkaline Phosphatase 642 H (38-126) U/L Total Protein 6.1 L (6.3-8.2) g/dL Abdominal x-ray: report reviewed (No evident bowel obstruction or pneum operitoneum. Multiple calcifications are present in the region of the pancreas.) Assessment and Plan (1) Dilation of common bile duct Narrative/Plan: 65-year-old -[place] female who presented to the emergency department with new onset abdominal pain. Patient was recently admitted in August for an ALLERGIC reaction to jellybeans and was noted to have elevated LFTs. She underwent an ultrasound showing a dilated common bile duct pancreatic head. Both the liver and gallbladder were within normal limits. She underwent an MRCP during that admission that showed confirmation of mild to moderate biliary dilation and moderate pancreatic ductal dilation with abrupt cutoff, there is suspected 3.8 cm pancreatic head mass or neoplasm. On this admission she had markedly elevated LFTs, amylase and lipase both normal. Patient has appointment scheduled with Dr. Rendon at [facility] in October 02. During her last admission was discussed with the patient per recommendation to transfer to a tertiary center for further evaluation by EUS, however the patient declined at that time. At this time would recommend transfer to [facility]iary [facility] for further evaluation with endoscopic ultrasound and possible ERCP. Current Visit: Yes Status: Acute Code(s): K83.8 - OTHER SPECIFIED DISEASES OF BILIARY TRACT SNOMED Code(s): 931141231 (2) Abdominal pain Current Visit: Yes Status: Acute Code(s): R10.9 - UNSPECIFIED ABDOMINAL PAIN SNOMED Code(s): 75811358 (3) Elevated LFTs Current Visit: Yes Status: Acute Code(s): R79.89 - OTHER SPECIFIED ABNORMAL FINDINGS OF BLOOD CHEMISTRY SNOMED Code(s): 389741584 Plan: 1. Patient may have full liquid diet 2. Continue medical management 3. Recommend transfer to tertiary hospital for further evaluation with EUS and possible ERCP 4. Protonix 40 mg twice a day 5. Abdominal x-ray ordered and reviewed 6. Magnesium citrate 7. Repeat CMP daily Thank you for this consultation, we will continue to follow. Dr. Love I agree with the dictator's note, documented as a scribe by Nelia Holman.
[2020-09-24 16:25] LABS: Glucose,Whole Blood 212 mg/dL (75-99)
[2020-09-24] MEDS ORDERED: hydrALAZINE HCL 20 MG/ML 1 ML VIAL IVP STA (16:26)
[2020-09-24 20:43] LABS: Glucose,Whole Blood 263 mg/dL (75-99)
[2020-09-24 21:32] LABS: Glucose,Whole Blood 319 mg/dL (75-99)
[2020-09-24] MEDS: hydrALAZINE HCL 25 MG TAB PO SCH (21:37)
--- NOTE | 2020-09-24 23:38 | P.HPIM ---
History of Present Illness H&P Date: 09/24/20 Chief Complaint: Abdomina pain Ms. Morel is a 65-year-old female with a past medical history of hypertension, osteoarthritis, chronic low back pain, coming into the hospital with a chief complaint of worsening abdominal pain along with decreased appetite and sign ificant weight loss. Patient was recently hospitalized 3 weeks back for an allergic reaction to jellybeans. During that admission patient was found to have elevated LFTs and subsequently had an abdominal ultrasound that showed dilated common bile duct and mass at the pancreatic head. Patient underwent MRCP which showed mild to moderate biliary dilation and moderate pancreatic duct dilation with a suspicion of 3.8 cm pancreatic head mass, with concerns of neoplasm. At that time patient was given an option to be transferred to tertiary care center but she refused and said she would follow-up as outpatient. She states that she has an appointment scheduled with Dr. Rendon at [facility] in couple of weeks. But as the patient's abdominal pain worsened and she was also having constipation with loss of appetite and so she came in here for further evaluation. In the ER at the time of admission patient vital signs temperature 97.8, heart rate 95, respiratory rate 20, blood pressure 168/88, saturating at 99% on room air. And she had labs done showing white count of 10.4, hemoglobin 12.1, platelets 410. Sodium 130, potassium 3.8, chloride 100, bicarb 20, BUN 5, creatinine 0.38, total bilirubin 2.4, AST 501, ALT 462, alkaline phosphatase 778. So the patient was admitted for further management. Review of Systems Constitutional: weight loss. Abdomen: abdominal pain. Cardiovascular: Patient denies any chest pain or short of breath no palpitations. Respiratory: patient denied any cough or sputum production. No shortness of breath Neurologic: Patient denied any numbness or tingling or headache. Musculoskeletal: Patient denies any complaints of joint swelling or deformity. Skin: Negative Psychiatric: Negative Endocrine: No heat or cold intolerance. Genitourinary: No dysuria or hematuria. All other 14 point ROS negative except the above Past Medical History Past Medical History: Eye Disorder, Hypertension, Osteoarthritis (OA) Additional Past Medical History / Comment(s): Osteoporosis, Lower Back Pain, Sciatica., TOLD YEARS AGO SHE HAD HEART MURMUR- NO TX, HX ACUTE BRONCHITIS(SMOKER), GLASSES DAILY USE History of Any Multi-Drug Resistant Organisms: None Reported Past Surgical History: Orthopedic Surgery, Tubal Ligation Additional Past Surgical History / Comment(s): 2 pins right hip-dislocated 1975 Past Anesthesia/Blood Transfusion Reactions: No Reported Reaction Past Psychological History: Anxiety, Depression Smoking Status: Current every day smoker Additional Past Alcohol Use History / Comment(s): started smoking @ age 17(1971)- SMOKES SOMEDAYS WHEN SHE CAN AFFORD TO GET CIGARETTES Past Drug Use History: None Reported Additional Drug Use History / Comment(s): Quit drinking after her last discharge, 09/07/20 - Past Family History Mother Family Medical History: Liver Disease Father Family Medical History: Cancer Additional Family Medical History / Comment(s): Lung and liver cancer. Medications and Allergies Home Medications Medication Instructions Recorded Confirmed Type amLODIPine BESYLATE/BENAZEPRIL 1 cap PO DAILY 09/25/13 09/24/20 History [amLODIPine BESYLATE/BENAZEPRIL 10-40 MG] Gabapentin [Neurontin] 300 mg PO BID PRN 12/06/16 09/24/20 History Albuterol Sulfate [Albuterol 2 puff INHALATION RT-Q4H PRN 09/04/20 09/24/20 History Sulfate Hfa] metFORMIN HCL [Glucophage Xr] 500 mg PO DAILY #30 tab 09/06/20 09/24/20 Rx Omeprazole 40 mg PO DAILY 09/24/20 09/24/20 History Allergies Allergy/AdvReac Type Severity Reaction Status Date / Time erythromycin base AdvReac Nausea Verified 09/24/20 08:23 [Erythromycin Base] Physical Exam Vitals: Vital Signs Temp Pulse Pulse Resp BP BP Pulse Ox 09/24/20 08:18 98.6 F 74 16 174/90 99 09/24/20 05:48 152/84 09/24/20 02:00 97.5 F L 72 19 181/98 100 09/23/20 23:32 68 18 144/77 96 09/23/20 22:30 97.8 F 95 20 168/88 99 Intake and Output 09/23/20 09/24/20 09/24/20 22:59 06:59 14:59 Other: # Voids 1 Weight 52.345 kg 52.345 kg PHYSICAL EXAMINATION: Patient is lying in the bed comfortably, no acute distress, awake alert and oriented. HEENT: Normocephalic. Neck is supple. Pupils reactive. Nostrils clear. Oral cavity is moist. Neck reveals no JVD, carotid bruits, or thyromegaly. CHEST EXAMINATION: Trachea is central. Symmetrical expansion. Lung mccrary clear to auscultation and percussion. CARDIAC: Normal S1, S2 with no gallops. No murmurs ABDOMEN: Soft , Distended, No guarding or rigidity, hypoactive bowel sounds Extremities: reveal no edema. No clubbing or cyanosis Neurologically awake, alert, oriented x3 with well-coordinated movements. No focal deficits noted Skin: No rash or skin lesions. Psychiatric: Coperative. Nonsuicidal Musculoskeletal: No joint swelling or deformity. Normal range of motion. Results CBC & Chem 7: 09/23/20 22:52 09/24/20 08:56 Labs: Abnormal Lab Results - Last 24 Hours (Table) 09/23/20 09/23/20 09/24/20 Range/Units 22:52 22:52 01:32 APTT 20.9 L (22.0-30.0) sec Sodium 130 L (137-145) mmol/L Potassium (3.5-5.1) mmol/L Carbon Dioxide 20 L (22-30) mmol/L BUN 5 L (7-17) mg/dL Creatinine 0.38 L (0.52-1.04) mg/dL Glucose 259 H (74-99) mg/dL POC Glucose (mg/dL) 234 H (75-99) mg/dL Total Bilirubin 2.4 H (0.2-1.3) mg/dL AST 501 H (14-36) U/L ALT 462 H (4-34) U/L Alkaline Phosphatase 778 H (38-126) U/L Total Protein (6.3-8.2) g/dL 09/24/20 09/24/20 09/24/20 Range/Units 07:10 08:56 11:49 APTT (22.0-30.0) sec Sodium 132 L (137-145) mmol/L Potassium 3.4 L (3.5-5.1) mmol/L Carbon Dioxide (22-30) mmol/L BUN 4 L (7-17) mg/dL Creatinine 0.40 L (0.52-1.04) mg/dL Glucose 177 H (74-99) mg/dL POC Glucose (mg/dL) 203 H 160 H (75-99) mg/dL Total Bilirubin 2.7 H (0.2-1.3) mg/dL AST 644 H (14-36) U/L ALT 523 H (4-34) U/L Alkaline Phosphatase 642 H (38-126) U/L Total Protein 6.1 L (6.3-8.2) g/dL Thrombosis Risk Factor Assmnt - Choose All That Apply Each Risk Factor Represents 2 Points: Age 61-74 years Thrombosis Risk Factor Assessment Total Risk Factor Score: 2 Thrombosis Risk Factor Assessment Level: Low Risk Assessment and Plan Assessment: ASSESSMENT Newly diagnosed 3.8 cm mass at the anterior head region. Suspected malignancy. Dilated CBD at the pancreatic head. Recent Acute anaphylactic reaction Elevated liver enzymes and alk phos. Ongoing nicotine addiction Hypertension Osteoarthritis Anxiety/depression Chronic low back pain PLAN: Patient has newly diagnosed pancreatic mass and dilated common bile duct and pancreatic duct, findings suggestive of possible pancreatic neoplasm. GI has been consulted. Upon discussing with Dr. Love, patient will need endoscopic ultrasound for possible biopsy of the pancreatic head mass. So he suggested transferring the patient to tertiary care center. [facility] transfer team has been contacted, she was accepted by Dr. Nallely asher at [facility]. Thy requested Covid test, COVID PCR -negative. So arrangements for transfer of the patient are being made.
[2020-09-25 07:18] LABS: Glucose,Whole Blood 215 mg/dL (75-99)
[2020-09-25] MEDS: lisinopriL 20 MG TAB PO SCH (07:48)
[2020-09-25] MEDS: INSULIN ASPART (NovoLOG) 100 UNIT/ML VIAL SQ SCH ×4 (07:48→20:08)
[2020-09-25] MEDS: amLODIPine 10 MG TAB PO SCH (07:48)
[2020-09-25] MEDS: hydrALAZINE HCL 25 MG TAB PO SCH ×3 (07:48→20:17)
[2020-09-25] MEDS: PANTOPRAZOLE 40 MG/10 ML VIAL IV SCH (07:48)
[2020-09-25] MEDS: GABAPENTIN 300 MG CAP PO PRN ×2 (07:53→20:17)
[2020-09-25 08:56] LABS: ALT 498 U/L (4-34); AST 464 U/L (14-36); African American GFR (CKD) >90 (>60 ml/min/1.73 sqM); Albumin 3.9 g/dL (3.5-5.0); Albumin/Globulin Ratio 1.6; Alkaline Phosphatase 772 U/L (38-126); Anion Gap 7 mmol/L; Blood Urea Nitrogen 4 mg/dL (7-17); Carbon Dioxide 24 mmol/L (22-30); Chloride 100 mmol/L (98-107); Globulin 2.4 g/dL; Glucose 217 mg/dL (74-99); Non-African American GFR(CKD) >90 (>60 ml/min/1.73 sqM); Sodium 131 mmol/L (137-145); Total Bilirubin 3.4 mg/dL (0.2-1.3); Total Protein 6.3 g/dL (6.3-8.2)
[2020-09-25 11:57] LABS: Glucose,Whole Blood 253 mg/dL (75-99)
[2020-09-25 12:06] LABS: Basophils # (A) 0.09 X 10*3/uL (0.00-0.10); Eosinophils # (A) 0.13 X 10*3/uL (0.04-0.35); Eosinophils % (A) 1.5 %; HCT 34.9 % (37.2-46.3); HGB 11.9 g/dL (12.0-15.0); Lymphocytes # (A) 1.57 X 10*3/uL (0.90-5.00); Lymphocytes % (A) 18.1 %; MCH 28.5 pg (27.0-32.0); MCHC 34.1 g/dL (32.0-37.0); MCV 83.5 fL (80.0-97.0); Mean Platelet Volume 10.5 fL (9.5-12.2); Monocytes # (A) 0.62 X 10*3/uL (0.20-1.00); Monocytes % (A) 7.2 %; Neutrophils # (A) 6.22 X 10*3/uL (1.80-7.70); Neutrophils % (A) 71.9 %; Platelet Count 423 X 10*3/uL (140-440); RBC 4.18 X 10*6/uL (4.10-5.20); RDW 13.5 % (11.5-14.5); WBC 8.66 X 10*3/uL (4.50-10.00)
--- NOTE | 2020-09-25 12:24 | P.PN ---
Subjective Progress Note Date: 09/25/20 Principal diagnosis: Abdominal pain, pancreatic mass The patient is seen and examined lying in bed. States abdominal pain has improved some. Patient had 2 bowel movements the night after given magnesium citrate. She denies any nausea or vomiting. Patient has been accepted to [facility] as a transfer for further evaluation with EUS and possible ERCP, awaiting a bed. Bilirubin is trending up and is 3.4 today. LFTs remain elevated, alkaline phosphatase 772, AST 464, ALT 4. Objective - Vital Signs Vital signs: Vital Signs Temp 98.3 F 09/25/20 07:26 Pulse 80 09/25/20 07:26 Resp 16 09/25/20 08:00 BP 173/83 09/25/20 07:26 Pulse Ox 100 09/25/20 07:26 Intake & Output 09/24/20 09/25/20 09/25/20 18:59 06:59 18:59 Intake Total 840 Balance 840 Weight 52.345 kg Intake: Intake, IV Titration 240 Amount Dextrose 5%-0.45% NaCl 1, 240 000 ml @ 50 mls/hr IV . Q20H [facility] Rx#:[id number] Oral 600 Other: Voiding Method Toilet Toilet # Voids 2 # Bowel Movements 1 - Exam General appearance: The patient is alert, oriented, appears in no acute dis tress. HET: Head is normocephalic and atraumatic. Conjunctiva pink. Sclera anicteric. Neck: Supple without lymphadenopathy. Abdomen: Soft, right upper quadrant tenderness,, nondistended with bowel sounds. No guarding or rigidity. Extremities: Normal skin color and turgor. No pedal edema Skin: No rashes, no jaundice Neurological: No focal deficits. Alert and oriented 3. - Labs CBC & Chem 7: 09/25/20 07:18 09/25/20 07:18 Labs: Abnormal Lab Results - Last 24 Hours (Table) 09/24/20 09/24/20 09/24/20 Range/Units 11:49 16:24 20:41 Sodium (137-145) mmol/L BUN (7-17) mg/dL Creatinine (0.52-1.04) mg/dL Glucose (74-99) mg/dL POC Glucose (mg/dL) 160 H 212 H 263 H (75-99) mg/dL Total Bilirubin (0.2-1.3) mg/dL AST (14-36) U/L ALT (4-34) U/L Alkaline Phosphatase (38-126) U/L 09/24/20 09/25/20 09/25/20 Range/Units 21:31 07:11 07:18 Sodium 131 L (137-145) mmol/L BUN 4 L (7-17) mg/dL Creatinine 0.35 L (0.52-1.04) mg/dL Glucose 217 H (74-99) mg/dL POC Glucose (mg/dL) 319 H 215 H (75-99) mg/dL Total Bilirubin 3.4 H (0.2-1.3) mg/dL AST 464 H (14-36) U/L ALT 498 H (4-34) U/L Alkaline Phosphatase 772 H (38-126) U/L Assessment and Plan (1) Dilation of common bile duct Narrative/Plan: 65-year-old -Serbian female who presented to the emergency department with new onset abdominal pain. Patient was recently admitted in August for an ALLERGIC reaction to jellybeans and was noted to have elevated LFTs. She underwent an ultrasound showing a dilated common bile duct pancreatic head. Both the liver and gallbladder were within normal limits. She underwent an MRCP during that admission that showed confirmation of mild to moderate biliary dilation and moderate pancreatic ductal dilation with abrupt cutoff, there is suspected 3.8 cm pancreatic head mass or neoplasm. On this admission she had markedly elevated LFTs, amylase and lipase both normal. Patient has appointment scheduled with Dr. Rendon at [facility] in October 02. During her last admission was discussed with the patient per recommendation to transfer to a tertiary center for further evaluation by EUS, however the patient declined at that time. At this time would recommend transfer to [facility] for further evaluation with endoscopic ultrasound and possible ERCP. Current Visit: Yes Status: Acute Code(s): K83.8 - OTHER SPECIFIED DISEASES OF BILIARY TRACT SNOMED Code(s): 701065532 (2) Abdominal pain Current Visit: Yes Status: Acute Code(s): R10.9 - UNSPECIFIED ABDOMINAL PAIN SNOMED Code(s): 77953212 (3) Elevated LFTs Current Visit: Yes Status: Acute Code(s): R79.89 - OTHER SPECIFIED ABNORMAL FINDINGS OF BLOOD CHEMISTRY SNOMED Code(s): 276503280 Plan: 1. Patient may have full liquid diet 2. Continue medical management 3. Recommend transfer to tertiary hospital for further evaluation with EUS and possible ERCP 4. Protonix 40 mg twice a day 5. Abdominal x-ray ordered and reviewed 6. Repeat CMP daily 7. Patient has been accepted for transfer to [facility], awaiting a bed. Thank you for this consultation, we will continue to follow. Dr. Love I agree with the dictator's note, documented as a scribe by Nelia Holman.
[2020-09-25] MEDS: DEXTROSE 5%-0.45% NACL 1,000 ML IV SCH (15:19)
[2020-09-25 16:37] LABS: Glucose,Whole Blood 294 mg/dL (75-99)
[2020-09-25 20:05] LABS: Glucose,Whole Blood 87 mg/dL (75-99)
--- NOTE | 2020-09-25 23:51 | P.PN ---
Subjective Progress Note Date: 09/25/20 Principal diagnosis: Pancreatic mass Ms. Morel is a 65-year-old female with a past medical history of hypertension, osteoarthritis, chronic low back pain, coming into the hospital with a chief complaint of worsening abdominal pain along with decreased appetite and si gnificant weight loss. Patient was recently hospitalized 3 weeks back for an allergic reaction to jellybeans. During that admission patient was found to have elevated LFTs and subsequently had an abdominal ultrasound that showed dilated common bile duct and mass at the pancreatic head. Patient underwent MRCP which showed mild to moderate biliary dilation and moderate pancreatic duct dilation with a suspicion of 3.8 cm pancreatic head mass, with concerns of neoplasm. At that time patient was given an option to be transferred to tertiary care center but she refused and said she would follow-up as outpatient. She states that she has an appointment scheduled with Dr. Rendon at [facility] in couple of weeks. But as the patient's abdominal pain worsened and she was also having constipation with loss of appetite and so she came in here for further evaluation. In the ER at the time of admission patient vital signs temperature 97.8, heart rate 95, respiratory rate 20, blood pressure 168/88, saturating at 99% on room air. And she had labs done showing white count of 10.4, hemoglobin 12.1, platelets 410. Sodium 130, potassium 3.8, chloride 100, bicarb 20, BUN 5, creatinine 0.38, total bilirubin 2.4, AST 501, ALT 462, alkaline phosphatase 778. So the patient was admitted for further management. On 09/25/2020 patient is seen and examined at the bedside. She has been accepted by [facility] and awaiting bed. She is comfortably lying in bed wa tching television and states that she is getting enough of time to rest. Patient does not have any active complaints. She denies having any abdominal pain nausea vomiting or diarrhea. Patient mentions that she had a bowel movement this morning and felt much better in terms of her abdominal discomfort. On reviewing her vitals temperature 98.7, heart rate 87, respiratory rate 18, blood pressure 154/83, saturating at 100% on room air reviewing the labs from this morning white count of 8.6, hemoglobin 11.9, platelets 423. Sodium 131, potassium 4, chloride 100, bicarb 24, BUN 4, creatinine 0.35. AST 464, ALT 498, alkaline phosphatase 172. Active Medications Albuterol Sulfate (Albuterol Nebulized 2.5 Mg/3 Ml) 2.5 mg INHALATION RT-Q4H PRN PRN Reason: Shortness Of Breath Last Admin: 09/25/20 07:06 Dose: 2.5 mg Documented by: Amlodipine Besylate (Amlodipine 10 Mg Tab) 10 mg PO DAILY [facility] Last Admin: 09/25/20 07:48 Dose: 10 mg Documented by: Gabapentin (Gabapentin 300 Mg Cap) 300 mg PO BID PRN PRN Reason: Pain Last Admin: 09/25/20 20:17 Dose: 300 mg Documented by: Hydralazine HCl (Hydralazine Hcl 25 Mg Tab) 25 mg PO TID [facility] Last Admin: 09/25/20 20:17 Dose: 25 mg Documented by: Hydromorphone HCl (Hydromorphone 0.5 Mg/0.5 Ml Syringe) 0.5 mg IVP Q3HR PRN PRN Reason: Moderate Pain Dextrose/Sodium Chloride (Dextrose 5%-1/2ns Iv Soln) 1,000 mls @ 50 mls/hr IV .Q20H [facility] Last Admin: 09/25/20 15:19 Dose: 50 mls/hr Documented by: Insulin Aspart (Insulin Aspart (Novolog) 100 Unit/Ml Vial) 0 unit SQ ACHS [facility]; Protocol Last Admin: 09/25/20 20:08 Dose: Not Given Documented by: Lisinopril (Lisinopril 20 Mg Tab) 40 mg PO DAILY [facility] Last Admin: 09/25/20 07:48 Dose: 40 mg Documented by: Naloxone HCl (Naloxone 0.4 Mg/Ml 1 Ml Vial) 0.2 mg IV Q2M PRN PRN Reason: Opioid Reversal Ondansetron HCl (Ondansetron 4 Mg/2 Ml Vial) 4 mg IVP Q8HR PRN PRN Reason: Nausea And Vomiting Pantoprazole Sodium (Pantoprazole 40 Mg Tablet) 40 mg PO DAILY [facility] Objective - Vital Signs Vital signs: Vital Signs Temp 98.5 F 09/25/20 20:00 Pulse 80 09/25/20 20:00 Resp 18 09/25/20 20:00 BP 144/87 09/25/20 20:00 Pulse Ox 100 09/25/20 20:00 Intake & Output 09/25/20 09/25/20 09/26/20 06:59 18:59 06:59 Intake Total 840 800 Balance 840 800 Intake: IV 600 Dextrose 5%-0.45% NaCl 1, 600 000 ml @ 50 mls/hr IV . Q20H [facility] Rx#:[id number] Intake, IV Titration 240 Amount Dextrose 5%-0.45% NaCl 1, 240 000 ml @ 50 mls/hr IV . Q20H [facility] Rx#:[id number] Oral 600 200 Other: Voiding Method Toilet # Bowel Movements 1 - Exam PHYSICAL EXAMINATION: Patient is lying in the bed comfortably, no acute distress, awake alert and oriented. HEENT: Normocephalic. Neck is supple. Pupils reactive. Nostrils clear. Oral cavity is moist. Neck reveals no JVD, carotid bruits, or thyromegaly. CHEST EXAMINATION: Trachea is central. Symmetrical expansion. Lung mccrary clear to auscultation and percussion. CARDIAC: Normal S1, S2 with no gallops. No murmurs ABDOMEN: Soft , Distended, No guarding or rigidity,normal bowel sounds Extremities: reveal no edema. No clubbing or cyanosis Neurologically awake, alert, oriented x3 with well-coordinated movements. No focal deficits noted Skin: No rash or skin lesions. Psychiatric: Coperative. Nonsuicidal Musculoskeletal: No joint swelling or deformity. Normal range of motion. - Labs CBC & Chem 7: 09/25/20 07:18 09/25/20 07:18 Labs: Abnormal Lab Results - Last 24 Hours (Table) 09/25/20 09/25/20 09/25/20 Range/Units 07:11 07:18 07:18 Hgb 11.9 L (12.0-15.0) g/dL Hct 34.9 L (37.2-46.3) % Sodium 131 L (137-145) mmol/L BUN 4 L (7-17) mg/dL Creatinine 0.35 L (0.52-1.04) mg/dL Glucose 217 H (74-99) mg/dL POC Glucose (mg/dL) 215 H (75-99) mg/dL Total Bilirubin 3.4 H (0.2-1.3) mg/dL AST 464 H (14-36) U/L ALT 498 H (4-34) U/L Alkaline Phosphatase 772 H (38-126) U/L 09/25/20 09/25/20 Range/Units 11:56 16:35 Hgb (12.0-15.0) g/dL Hct (37.2-46.3) % Sodium (137-145) mmol/L BUN (7-17) mg/dL Creatinine (0.52-1.04) mg/dL Glucose (74-99) mg/dL POC Glucose (mg/dL) 253 H 294 H (75-99) mg/dL Total Bilirubin (0.2-1.3) mg/dL AST (14-36) U/L ALT (4-34) U/L Alkaline Phosphatase (38-126) U/L Assessment and Plan Assessment: ASSESSMENT Newly diagnosed 3.8 cm mass at the anterior head region. Suspected malignancy. Dilated CBD at the pancreatic head. Recent Acute anaphylactic reaction Elevated liver enzymes and alk phos. Ongoing nicotine addiction Hypertension Osteoarthritis Anxiety/depression Chronic low back pain PLAN: Patient has newly diagnosed pancreatic mass and dilated common bile duct and pancreatic duct, findings suggestive of possible pancreatic neoplasm. GI has been consulted- Dr. Love, patient will need endoscopic ultrasound for possible biopsy of the pancreatic head mass. So he suggested transferring the patient to tertiary care center. [facility] transfer team has been contacted, she was accepted by Dr. Nallely asher at [facility] on 09/24/2020. They requested Covid test, COVID PCR -negative. Awaiting bed at [facility]
[2020-09-26 07:08] LABS: Glucose,Whole Blood 229 mg/dL (75-99)
[2020-09-26] MEDS: amLODIPine 10 MG TAB PO SCH (08:18)
[2020-09-26] MEDS: hydrALAZINE HCL 25 MG TAB PO SCH ×3 (08:18→21:46)
[2020-09-26] MEDS: PANTOPRAZOLE 40 MG TABLET PO SCH (08:18)
[2020-09-26] MEDS: lisinopriL 20 MG TAB PO SCH (08:18)
[2020-09-26] MEDS: INSULIN ASPART (NovoLOG) 100 UNIT/ML VIAL SQ SCH ×4 (08:18→21:47)
--- NOTE | 2020-09-26 09:34 | P.PN ---
Subjective Progress Note Date: 09/26/20 Principal diagnosis: Abdominal pain, pancreatic mass Should seen and examined sitting up at the bedside. States her abdominal pain has improved significantly. She had another bowel movement yesterday. Denies any nausea or vomiting. She would like to advance her diet. Today's labs are still pending. Objective - Vital Signs Vital signs: Vital Signs Temp 98.8 F 09/26/20 07: Pulse 83 09/26/20 07:21 Resp 16 09/26/20 07:21 BP 139/78 09/26/20 07:21 Pulse Ox 99 09/26/20 07:21 Intake & Output 09/25/20 09/26/20 09/26/20 18:59 06:59 18:59 Intake Total 800 Balance 800 Intake: IV 600 Dextrose 5%-0.45% NaCl 1, 600 000 ml @ 50 mls/hr IV . Q20H [facility] Rx#:[id number] Oral 200 Other: Voiding Method Toilet - Exam General appearance: The patient is alert, oriented, appears in no acute distress. HET: Head is normocephalic and atraumatic. Conjunctiva pink. Sclera anicteric. Neck: Supple without lymphadenopathy. Abdomen: Soft, nontender, nondistended with bowel sounds. No guarding or rigidity. Extremities: Normal skin color and turgor. No pedal edema Skin: No rashes, no jaundice Neurological: No focal deficits. Alert and oriented 3. - Labs CBC & Chem 7: 09/25/20 07:18 09/25/20 07:18 Labs: Abnormal Lab Results - Last 24 Hours (Table) 09/25/20 09/25/20 09/25/20 Range/Units 07:18 11:56 16:35 Hgb 11.9 L (12.0-15.0) g/dL Hct 34.9 L (37.2-46.3) % POC Glucose (mg/dL) 253 H 294 H (75-99) mg/dL 09/26/20 Range/Units 07:05 Hgb (12.0-15.0) g/dL Hct (37.2-46.3) % POC Glucose (mg/dL) 229 H (75-99) mg/dL Assessment and Plan (1) Dilation of common bile duct Narrative/Plan: 65-year-old -[place] female who presented to the emergency department with new onset abdominal pain. Patient was recently admitted in August for an ALLERGIC reaction to jellybeans and was noted to have elevated LFTs. She underwent an ultrasound showing a dilated common bile duct pancreatic head. Both the liver and gallbladder were within normal limits. She underwent an MRCP during that admission that showed confirmation of mild to moderate biliary dilation and moderate pancreatic ductal dilation with abrupt cutoff, there is suspected 3.8 cm pancreatic head mass or neoplasm. On this admission she had markedly elevated LFTs, amylase and lipase both normal. Patient has appointment scheduled with Dr. Rendon at [facility] in October 02. During her last admission was discussed with the patient per recommendation to transfer to a tertiary center for further evaluation by EUS, however the patient declined at that time. At this time would recommend transfer to Tertiary [facility] for further evaluation with endoscopic ultrasound and possible ERCP. Current Visit: Yes Status: Acute Code(s): K83.8 - OTHER SPECIFIED DISEASES OF BILIARY TRACT SNOMED Code(s): 717422911 (2) Abdominal pain Current Visit: Yes Status: Acute Code(s): R10.9 - UNSPECIFIED ABDOMINAL PAIN SNOMED Code(s): 58484820 (3) Elevated LFTs Current Visit: Yes Status: Acute Code(s): R79.89 - OTHER SPECIFIED ABNORMAL FINDINGS OF BLOOD CHEMISTRY SNOMED Code(s): 553846384 Plan: 1. Advance to heart healthy diet 2. Continue medical management 3. Recommend transfer to tertiary [facility] for further evaluation with EUS and possible ERCP 4. Protonix 40 mg twice a day 5. Abdominal x-ray ordered and reviewed 6. Repeat CMP daily 7. Patient has been accepted for transfer to [facility], awaiting a bed. Thank you for this consultation, we will continue to follow. Dr. Love I agree with the dictator's note, documented as a scribe by Nelia Holman.
--- NOTE | 2020-09-26 11:36 | CDI ---
Documentation Clarification Form Date: 09/26/2020 10:22:09 AM From: Tania Valiente RN CCDS Admit Date: 09/26/2020 09:42:00 AM Patient Name: Nannette Morel Visit Number: [id number] Discharge Date: ATTENTION: The Clinical Documentation Specialists (CDI) and [facility] Coding Staff appreciate your assistance in clarifying documentation. Please respond to the clarification below the line at the bottom and electronically sign. The CDI & [facility] Coding staff will review the response and follow-up if needed. Please note: Queries are made part of the Legal Health Record. If you have any questions, please contact the author of this message via ITS. Dr. Mayela Gongora The Registered Dietitian assessment on 09/24 indicates this patient is Underweight. Based on this information and the findings below, is there an additional diagnosis that is clinically appropriate for this patient? History/Risk Factors: 65-year-old female presents to the ED with worsening abdominal pain with decreased appetite and significant weight loss. Medical History: HTN; dilated common bile duct and mass at the pancreatic head. H&P 09/24. Clinical Indicators: RD Consult Assessment: Current BMI: 18.1 Nutritional Hx: HTN, newly diagnosed DM and admitted with pancreatic mass. Appetite: Good; Diet Hx: Regular. Nutrition intake: Poor; NPO diet order. Nutrition concerns under feeding: Pt reports she feels very hungry. Appetite: Fair. Physical Appearance Underweight. Anthropometrics: Weight 52.345 kg stated by patient. HGT 5ft 7in. BMI 18.1; Body Mass Index Classification: Underweight. Calculated Sophia Index 61.4kg. Weight loss 2.2kg during the last month. Estimated Nutritional needs by ideal body weight: Energy formula for estimated nutritional needs 20-2Kcals/Kg. Energy Needs 5191-6015 Kcal. CHO: 172 grams. Estimated Protein Needs: Estimated protein range (grams/kg) 1.0; Estimated protein needs (grams/day) 61. Estimated fluid needs: Fluid formula 1ml/Kcal; Estimated fluid needs (mls/day) 4829-6867. Nutrition Diagnosis clinical: unintended weight loss; related to constipation, decreased appetite. Treatment: Dietary Consult: See above Diet: Full liquid for lunch and change to Heart Healthy at lunch. Other: Monitor PO intake. Is there an additional diagnosis that is clinically appropriate for this patient? [ ] Mild Protein-Calorie Malnutrition [ ] Moderate Protein-Calorie Malnutrition [ ] Severe Protein-Calorie Malnutrition [ ] Other condition, please specify [ ] Unable to Determine (Template Last Revised: May 2020) MTDD
[2020-09-26 11:56] LABS: Glucose,Whole Blood 262 mg/dL (75-99)
[2020-09-26 16:55] LABS: Glucose,Whole Blood 165 mg/dL (75-99)
[2020-09-26] MEDS: DEXTROSE 5%-0.45% NACL 1,000 ML IV SCH (17:24)
[2020-09-26] MEDS: GABAPENTIN 300 MG CAP PO PRN (17:30)
[2020-09-26 20:25] LABS: Glucose,Whole Blood 191 mg/dL (75-99)
[2020-09-26 23:44] VITALS: RESP 16
--- NOTE | 2020-09-26 23:57 | P.PN ---
Subjective Progress Note Date: 09/26/20 Principal diagnosis: Pancreatic mass Ms. Morel is a 65-year-old female with a past medical history of hypertension, osteoarthritis, chronic low back pain, coming into the hospital with a chief complaint of worsening abdominal pain along with decreased appetite and si gnificant weight loss. Patient was recently hospitalized 3 weeks back for an allergic reaction to jellybeans. During that admission patient was found to have elevated LFTs and subsequently had an abdominal ultrasound that showed dilated common bile duct and mass at the pancreatic head. Patient underwent MRCP which showed mild to moderate biliary dilation and moderate pancreatic duct dilation with a suspicion of 3.8 cm pancreatic head mass, with concerns of neoplasm. At that time patient was given an option to be transferred to tertiary care center but she refused and said she would follow-up as outpatient. She states that she has an appointment scheduled with Dr. Rendon at [facility] in couple of weeks. But as the patient's abdominal pain worsened and she was also having constipation with loss of appetite and so she came in here for further evaluation. In the ER at the time of admission patient vital signs temperature 97.8, heart rate 95, respiratory rate 20, blood pressure 168/88, saturating at 99% on room air. And she had labs done showing white count of 10.4, hemoglobin 12.1, platelets 410. Sodium 130, potassium 3.8, chloride 100, bicarb 20, BUN 5, creatinine 0.38, total bilirubin 2.4, AST 501, ALT 462, alkaline phosphatase 778. So the patient was admitted for further management. On 09/25/2020 patient is seen and examined at the bedside. She has been accepted by [facility] and awaiting bed. She is comfortably lying in bed wa tching television and states that she is getting enough of time to rest. Patient does not have any active complaints. She denies having any abdominal pain nausea vomiting or diarrhea. Patient mentions that she had a bowel movement this morning and felt much better in terms of her abdominal discomfort. On reviewing her vitals temperature 98.7, heart rate 87, respiratory rate 18, blood pressure 154/83, saturating at 100% on room air reviewing the labs from this morning white count of 8.6, hemoglobin 11.9, platelets 423. Sodium 131, potassium 4, chloride 100, bicarb 24, BUN 4, creatinine 0.35. AST 464, ALT 498, alkaline phosphatase 172. On 09/26/2020 -patient is comfortably resting in bed appears to be no acute distress. Patient has no complaints of abdominal pain nausea or vomiting. She denies having any chest pain or palpitations. No cough or difficulty in br eathing. No acute events reported by nursing staff. As per discussion with case management social worker patient is still waiting for the bed at [facility]. On reviewing the vitals temperature 98.5, heart rate 67, respiratory rate 18, blood pressure 133/70 saturating 100% on room air. No new labs from this morning. Patient's medications have been reviewed she is on amlodipine albuterol gabapentin hydralazine Dilaudid Zestril Zofran Protonix Lovenox Objective - Vital Signs Vital signs: Vital Signs Temp 98.8 F 09/26/20 07:21 Pulse 83 09/26/20 07:21 Resp 16 09/26/20 07:21 BP 139/78 09/26/20 07:21 Pulse Ox 99 09/26/20 07:21 Intake & Output 09/25/20 09/26/20 09/26/20 18:59 06:59 18:59 Intake Total 800 200 Balance 800 200 Weight 52.345 kg Intake: IV 600 Dextrose 5%-0.45% NaCl 1, 600 000 ml @ 50 mls/hr IV . Q20H [facility] Rx#:[id number] Oral 200 200 Other: Voiding Method Toilet - Exam PHYSICAL EXAMINATION: Patient is lying in the bed comfortably, no acute distress, awake alert and oriented. HEENT: Normocephalic. Neck is supple. Pupils reactive. Mild scleral icterus Neck reveals no JVD, carotid bruits, or thyromegaly. CHEST EXAMINATION: Trachea is central. Symmetrical expansion. Lung mccrary clear to auscultation and percussion. CARDIAC: Normal S1, S2 with no gallops. No murmurs ABDOMEN: Soft , Distended, No guarding or rigidity,normal bowel sounds Extremities: reveal no edema. No clubbing or cyanosis Neurologically awake, alert, oriented x3 with well-coordinated movements. No f ocal deficits noted Psychiatric: Coperative. Nonsuicidal Musculoskeletal: No joint swelling or deformity. Normal range of motion. - Labs CBC & Chem 7: 09/25/20 07:18 09/25/20 07:18 Labs: Abnormal Lab Results - Last 24 Hours (Table) 09/25/20 09/26/20 09/26/20 Range/Units 16:35 07:05 11:55 POC Glucose (mg/dL) 294 H 229 H 262 H (75-99) mg/dL Assessment and Plan Assessment: ASSESSMENT Newly diagnosed 3.8 cm mass at the anterior head of the Pancreas- Suspected malignancy. Dilated CBD at the pancreatic head. Recent Acute anaphylactic reaction Elevated liver enzymes and alk phos. Ongoing nicotine addiction Hypertension Osteoarthritis Anxiety/depression Chronic low back pain GI/DVT prophylaxsis PLAN: Patient has newly diagnosed pancreatic mass and dilated common bile duct and pancreatic duct, findings suggestive of possible pancreatic neoplasm. GI has been consulted- Dr. Love, patient will need endoscopic ultrasound for possible biopsy of the pancreatic head mass. So he suggested transferring the patient to tertiary care center. [facility] transfer team has been contacted, she was accepted by Dr. Nallely asher at [facility] on 09/24/2020. They requested Covid test, COVID PCR -negative. Awaiting bed at [facility]
[2020-09-27] MEDS: HYDROmorphone 0.5 MG/0.5 ML SYRINGE IVP PRN ×2 (02:37→18:04)
[2020-09-27 06:57] LABS: Glucose,Whole Blood 198 mg/dL (75-99)
[2020-09-27] MEDS: INSULIN ASPART (NovoLOG) 100 UNIT/ML VIAL SQ SCH ×4 (07:54→21:28)
[2020-09-27] MEDS: amLODIPine 10 MG TAB PO SCH (07:54)
[2020-09-27] MEDS: lisinopriL 20 MG TAB PO SCH (07:54)
[2020-09-27] MEDS: hydrALAZINE HCL 25 MG TAB PO SCH ×3 (07:54→21:36)
[2020-09-27] MEDS: PANTOPRAZOLE 40 MG TABLET PO SCH (07:54)
[2020-09-27] MEDS: DEXTROSE 5%-0.45% NACL 1,000 ML IV SCH (07:55)
[2020-09-27 09:24] LABS: Basophils # (A) 0.1 k/uL (0-0.2); Basophils % (A) 1 %; Eosinophils # (A) 0.3 k/uL (0-0.7); Eosinophils % (A) 3 %; HGB 11.9 gm/dL (11.4-16.0); Lymphocytes # (A) 1.8 k/uL (1.0-4.8); Lymphocytes % (A) 23 %; MCH 28.2 pg (25.0-35.0); MCHC 31.4 g/dL (31.0-37.0); MCV 89.7 fL (80.0-100.0); Mean Platelet Volume 7.8; Monocytes # (A) 0.5 k/uL (0-1.0); Monocytes % (A) 6 %; Neutrophils # (A) 5.1 k/uL (1.3-7.7); Neutrophils % (A) 64 %; Platelet Count 410 k/uL (150-450); RBC 4.24 m/uL (3.80-5.40); RDW 13.7 % (11.5-15.5)
--- NOTE | 2020-09-27 10:17 | P.PN ---
Subjective Progress Note Date: 09/27/20 Principal diagnosis: Abdominal pain, pancreatic mass Patient seen and examined sitting up at the bedside. She states she's been feeling very itchy yesterday and today. Denies any abdominal pain, nausea, or vomiting. She is tolerating a regular diet. Awaiting transfer to [facility] for further evaluation of pancreatic mass. Objective - Vital Signs Vital signs: Vital Signs Temp 98.5 F 09/27/20 07:20 Pulse 74 09/27/20 07:20 Resp 16 09/27/20 07:20 BP 144/75 09/27/20 07:20 Pulse Ox 100 09/27/20 07:20 Intake & Output 09/26/20 09/27/20 09/27/20 18:59 06:59 18:59 Intake Total 1280 Balance 1280 Weight 52.345 kg Intake: Oral 1280 Other: # Voids 3 2 - Exam General appearance: The patient is alert, oriented, appears in no acute distress. HET: Head is normocephalic and atraumatic. Conjunctiva pink. Sclera anicteric. Neck: Supple without lymphadenopathy. Abdomen: Soft, nontender, nondistended with bowel sounds. No guarding or rigidity. Extremities: Normal skin color and turgor. No pedal edema Skin: No rashes, no jaundice Neurological: No focal deficits. Alert and oriented 3. - Labs CBC & Chem 7: 09/27/20 06:35 09/25/20 07:18 Labs: Abnormal Lab Results - Last 24 Hours (Table) 09/26/20 09/26/20 09/26/20 Range/Units 11:55 16:53 20:22 POC Glucose (mg/dL) 262 H 165 H 191 H (75-99) mg/dL 09/27/20 Range/Units 06:56 POC Glucose (mg/dL) 198 H (75-99) mg/dL Assessment and Plan (1) Dilation of common bile duct Narrative/Plan: 65-year-old -[place] female who presented to the emergency department with new onset abdominal pain. Patient was recently admitted in August for an ALLERGIC reaction to jellybeans and was noted to have elevated LFTs. She underwent an ultrasound showing a dilated common bile duct pancreatic head. Both the liver and gallbladder were within normal limits. She underwent an MRCP during that admission that showed confirmation of mild to moderate biliary dilation and moderate pancreatic ductal dilation with abrupt cutoff, there is suspected 3.8 cm pancreatic head mass or neoplasm. On this admission she had markedly elevated LFTs, amylase and lipase both normal. Patient has appointment scheduled with Dr. Rendon at [facility] in October 02. During her last adm ission was discussed with the patient per recommendation to transfer to a tertiary center for further evaluation by EUS, however the patient declined at that time. At this time would recommend transfer to Tertiary [facility] for further evaluation with endoscopic ultrasound and possible ERCP. Current Visit: Yes Status: Acute Code(s): K83.8 - OTHER SPECIFIED DISEASES OF BILIARY TRACT SNOMED Code(s): 837794822 (2) Abdominal pain Current Visit: Yes Status: Acute Code(s): R10.9 - UNSPECIFIED ABDOMINAL PAIN SNOMED Code(s): 27474599 (3) Elevated LFTs Current Visit: Yes Status: Acute Code(s): R79.89 - OTHER SPECIFIED ABNORMAL FINDINGS OF BLOOD CHEMISTRY SNOMED Code(s): 339128175 Plan: 1. Continue heart healthy diet 2. Continue medical management 3. Recommend transfer to tertiary [facility] for further evaluation with EUS and possible ERCP 4. Protonix 40 mg twice a day 5. Abdominal x-ray ordered and reviewed 6. Repeat CMP daily 7. Patient has been accepted for transfer to [facility], awaiting a bed. Thank you for this consultation, we will continue to follow. Dr. Love I agree with the dictator's note, documented as a scribe by Nelia Holman.
[2020-09-27 10:33] LABS: ALT 352 U/L (4-34); AST 290 U/L (14-36); African American GFR (CKD) >90 (>60 ml/min/1.73 sqM); Albumin 3.7 g/dL (3.5-5.0); Albumin/Globulin Ratio 1.5; Alkaline Phosphatase 678 U/L (38-126); Anion Gap 10 mmol/L; Blood Urea Nitrogen 4 mg/dL (7-17); Calcium 9.8 mg/dL (8.4-10.2); Carbon Dioxide 21 mmol/L (22-30); Chloride 99 mmol/L (98-107); Globulin 2.4 g/dL; Glucose 198 mg/dL (74-99); Non-African American GFR(CKD) >90 (>60 ml/min/1.73 sqM); Potassium 4.1 mmol/L (3.5-5.1); Sodium 130 mmol/L (137-145); Total Bilirubin 4.2 mg/dL (0.2-1.3); Total Protein 6.1 g/dL (6.3-8.2)
[2020-09-27] MEDS: diphenhydrAMINE 25 MG CAP PO PRN ×2 (13:42→21:35)
[2020-09-27 16:41] LABS: Glucose,Whole Blood 209 mg/dL (75-99)
[2020-09-27 20:49] LABS: Glucose,Whole Blood 104 mg/dL (75-99)
[2020-09-27] MEDS: ENOXAPARIN 40 MG/0.4 ML SYRINGE SQ SCH (21:36)
--- NOTE | 2020-09-28 01:16 | P.PN ---
Subjective Progress Note Date: 09/27/20 Principal diagnosis: Pancreatic mass Ms. Morel is a 65-year-old female with a past medical history of hypertension, osteoarthritis, chronic low back pain, coming into the hospital with a chief complaint of worsening abdominal pain along with decreased appetite and si gnificant weight loss. Patient was recently hospitalized 3 weeks back for an allergic reaction to jellybeans. During that admission patient was found to have elevated LFTs and subsequently had an abdominal ultrasound that showed dilated common bile duct and mass at the pancreatic head. Patient underwent MRCP which showed mild to moderate biliary dilation and moderate pancreatic duct dilation with a suspicion of 3.8 cm pancreatic head mass, with concerns of neoplasm. At that time patient was given an option to be transferred to tertiary care center but she refused and said she would follow-up as outpatient. She states that she has an appointment scheduled with Dr. Rendon at [facility] in couple of weeks. But as the patient's abdominal pain worsened and she was also having constipation with loss of appetite and so she came in here for further evaluation. In the ER at the time of admission patient vital signs temperature 97.8, heart rate 95, respiratory rate 20, blood pressure 168/88, saturating at 99% on room air. And she had labs done showing white count of 10.4, hemoglobin 12.1, platelets 410. Sodium 130, potassium 3.8, chloride 100, bicarb 20, BUN 5, creatinine 0.38, total bilirubin 2.4, AST 501, ALT 462, alkaline phosphatase 778. So the patient was admitted for further management. On 09/25/2020 patient is seen and examined at the bedside. She has been accepted by [facility] and awaiting bed. She is comfortably lying in bed wa tching television and states that she is getting enough of time to rest. Patient does not have any active complaints. She denies having any abdominal pain nausea vomiting or diarrhea. Patient mentions that she had a bowel movement this morning and felt much better in terms of her abdominal discomfort. On reviewing her vitals temperature 98.7, heart rate 87, respiratory rate 18, blood pressure 154/83, saturating at 100% on room air reviewing the labs from this morning white count of 8.6, hemoglobin 11.9, platelets 423. Sodium 131, potassium 4, chloride 100, bicarb 24, BUN 4, creatinine 0.35. AST 464, ALT 498, alkaline phosphatase 172. On 09/26/2020 -patient is comfortably resting in bed appears to be no acute distress. Patient has no complaints of abdominal pain nausea or vomiting. She denies having any chest pain or palpitations. No cough or difficulty in br eathing. No acute events reported by nursing staff. As per discussion with outsole caser patient is still waiting for the bed at [facility]. On reviewing the vitals temperature 98.5, heart rate 67, respiratory rate 18, blood pressure 133/70 saturating 100% on room air. No new labs from this morning. On 09/27/2020 -patient is still awaiting for a bed at [facility]. Her condition remains stable. She denies having any active complaints. Vitals have been reviewed afebrile, heart rate 78, respiratory 16, blood pressure 152/76, saturating at 98% on room air. Patient's labs from this morning showing white count of 8, hemoglobin 9.9, platelets 410. Sodium 130, potassium 4.1, chloride 99, bicarb 21, BUN 4, creatinine 0.37. AST 290, ALT 252, alkaline phosphatase 378. Patient's medications have been reviewed she is on amlodipine albuterol gabapentin hydralazine Dilaudid Zestril Zofran Protonix Lovenox Objective - Vital Signs Vital signs: Vital Signs Temp 98.5 F 09/27/20 07:20 Pulse 74 09/27/20 07:20 Resp 16 09/27/20 07:20 BP 144/75 09/27/20 07:20 Pulse Ox 100 09/27/20 07:20 Intake & Output 09/26/20 09/27/20 09/27/20 18:59 06:59 18:59 Intake Total 1280 Balance 1280 Weight 52.345 kg Intake: Oral 1280 Other: # Voids 3 2 - Exam PHYSICAL EXAMINATION: Patient is lying in the bed comfortably, no acute distress, awake alert and oriented. HEENT: Mild scleral icterus CHEST EXAMINATION: .Lung mccrary clear to auscultation CARDIAC: Normal S1, S2 with no gallops. No murmurs ABDOMEN: Soft , Distended, No guarding or rigidity,normal bowel sounds Extremities: reveal no edema. Neurologically awake, alert, oriented x3 No focal deficits noted Psychiatric: Coperative. Nonsuicidal Musculoskeletal: No joint swelling or deformity. Normal range of motion. - Labs CBC & Chem 7: 09/27/20 06:35 09/27/20 06:35 Labs: Abnormal Lab Results - Last 24 Hours (Table) 09/26/20 09/26/20 09/27/20 Range/Units 16:53 20:22 06:35 Sodium 130 L (137-145) mmol/L Carbon Dioxide 21 L (22-30) mmol/L BUN 4 L (7-17) mg/dL Creatinine 0.37 L (0.52-1.04) mg/dL Glucose 198 H (74-99) mg/dL POC Glucose (mg/dL) 165 H 191 H (75-99) mg/dL Total Bilirubin 4.2 H (0.2-1.3) mg/dL AST 290 H (14-36) U/L ALT 352 H (4-34) U/L Alkaline Phosphatase 678 H (38-126) U/L Total Protein 6.1 L (6.3-8.2) g/dL 09/27/20 Range/Units 06:56 Sodium (137-145) mmol/L Carbon Dioxide (22-30) mmol/L BUN (7-17) mg/dL Creatinine (0.52-1.04) mg/dL Glucose (74-99) mg/dL POC Glucose (mg/dL) 198 H (75-99) mg/dL Total Bilirubin (0.2-1.3) mg/dL AST (14-36) U/L ALT (4-34) U/L Alkaline Phosphatase (38-126) U/L Total Protein (6.3-8.2) g/dL Assessment and Plan Assessment: ASSESSMENT Newly diagnosed 3.8 cm mass at the anterior head of the Pancreas- Suspected malignancy. Dilated CBD at the pancreatic head. Recent Acute anaphylactic reaction Elevated liver enzymes and alk phos. Ongoing nicotine addiction Hypertension Osteoarthritis Anxiety/depression Chronic low back pain GI/DVT prophylaxsis PLAN: Patient has newly diagnosed pancreatic mass and dilated common bile duct and pancreatic duct, findings suggestive of possible pancreatic neoplasm. GI has been consulted- Dr. Love, patient will need endoscopic ultrasound for possible biopsy of the pancreatic head mass. So he suggested transferring the patient to tertiary care center. [facility] transfer team has been contacted, she was accepted by Dr. Nallely asher at [facility] on 09/24/2020. They requested Covid test, COVID PCR -negative. Awaiting bed at [facility]
[2020-09-28] MEDS: diphenhydrAMINE 25 MG CAP PO PRN (03:49)
[2020-09-28] MEDS: DEXTROSE 5%-0.45% NACL 1,000 ML IV SCH (05:04)
[2020-09-28 06:36] LABS: Glucose,Whole Blood 174 mg/dL (75-99)
[2020-09-28 07:48] VITALS: BP 162/83; PULSE 79; TEMP 99
[2020-09-28] MEDS: ENOXAPARIN 40 MG/0.4 ML SYRINGE SQ SCH (08:31)
[2020-09-28] MEDS: PANTOPRAZOLE 40 MG TABLET PO SCH (08:32)
[2020-09-28] MEDS: lisinopriL 20 MG TAB PO SCH (08:32)
[2020-09-28] MEDS: amLODIPine 10 MG TAB PO SCH (08:32)
[2020-09-28] MEDS: hydrALAZINE HCL 25 MG TAB PO SCH (08:32)
[2020-09-28] MEDS: INSULIN ASPART (NovoLOG) 100 UNIT/ML VIAL SQ SCH ×2 (08:32→12:24)
[2020-09-28 11:40] LABS: Glucose,Whole Blood 189 mg/dL (75-99)
--- NOTE | 2020-09-28 12:04 | P.DS ---
Providers Date of admission: 09/26/20 09:42 Attending physician: Yvrose Brito Consults: 09/24/20 00:22 Consult Physician Routine Consulting Provider: Krystle Quiles Consult Reason/Comments: mass Do you want consulting provider notified?: Yes Primary care physician: [facility] Course: Pancreatic mass Ms. Morel is a 65-year-old female with a past medical history of hypertension, osteoarthritis, chronic low back pain, coming into the hospital with a chief complaint of worsening abdominal pain along with decreased appetite and significant weight loss. Patient was recently hospitalized 3 weeks back for an allergic reaction to jellybeans. During that admission patient was found to have elevated LFTs and subsequently had an abdominal ultrasound that showed dilated common bile duct and mass at the pancreatic head. Patient underwent MRCP which showed mild to moderate biliary dilation and moderate pancreatic duct dilation with a suspicion of 3.8 cm pancreatic head mass, with concerns of neoplasm. At that time patient was given an option to be transferred to tertiary care center but she refused and said she would follow-up as outpatient. She states that she has an appointment scheduled with Dr. Rendon at [facility] in couple of weeks. But as the patient's abdominal pain worsened and she was also having constipation with loss of appetite and so she came in here for further evaluation. In the ER at the time of admission patient vital signs temperature 97.8, heart rate 95, respiratory rate 20, blood pressure 168/88, saturating at 99% on room air. And she had labs done showing white count of 10.4, hemoglobin 12.1, platelets 410. Sodium 130, potassium 3.8, chloride 100, bicarb 20, BUN 5, creatinine 0.38, total bilirubin 2.4, AST 501, ALT 462, alkaline phosphatase 778. So the patient was admitted for further management. On 09/25/2020 patient is seen and examined at the bedside. She has been accepted by [facility] and awaiting bed. She is comfortably lying in bed watching television and states that she is getting enough of time to rest. Patient does not have any active complaints. She denies having any abdominal pain nausea vomiting or diarrhea. Patient mentions that she had a bowel movement this morning and felt much better in terms of her abdominal discomfort. On reviewing her vitals temperature 98.7, heart rate 87, respiratory rate 18, blood pressure 154/83, saturating at 100% on room air reviewing the labs from this morning white count of 8.6, hemoglobin 11.9, platelets 423. Sodium 131, potassium 4, chloride 100, bicarb 24, BUN 4, creatinine 0.35. AST 464, ALT 498, alkaline phosphatase 172. On 09/26/2020 -patient is comfortably resting in bed appears to be no acute di stress. Patient has no complaints of abdominal pain nausea or vomiting. She denies having any chest pain or palpitations. No cough or difficulty in breathing. No acute events reported by nursing staff. As per discussion with rn case mgr patient is still waiting for the bed at [facility]. On reviewing the vitals temperature 98.5, heart rate 67, respiratory rate 18, blood pressure 133/70 saturating 100% on room air. No new labs from this morning. On 09/27/2020 -patient is still awaiting for a bed at [facility]. Her condition remains stable. She denies having any active complaints. Vitals have been reviewed afebrile, heart rate 78, respiratory 16, blood pressure 152/76, saturating at 98% on room air. Patient's labs from this morning showing white count of 8, hemoglobin 9.9, platelets 410. Sodium 130, potassium 4.1, chloride 99, bicarb 21, BUN 4, creatinine 0.37. AST 290, ALT 252, alkaline phosphatase 378. 09/28/2020 Patient doesn't have any significant abdominal pain and the only abnormality is the worsening total bilirubin which has gone up to 4.5. Discussed with the gastroneurology patient will not need inpatient transfer patient already has an appointment on for endoscopic ultrasound at [facility] and this procedure can be done as an outpatient patient will be discharged today. PHYSICAL EXAMINATION: Patient is lying in the bed comfortably, no acute distress, awake alert and oriented. HEENT: Mild scleral icterus CHEST EXAMINATION: .Lung mccrary clear to auscultation CARDIAC: Normal S1, S2 with no gallops. No murmurs ABDOMEN: Soft , Distended, No guarding or rigidity,normal bowel sounds Extremities: reveal no edema. Neurologically awake, alert, oriented x3 No focal deficits noted Psychiatric: Coperative. Nonsuicidal Musculoskeletal: No joint swelling or deformity. Normal range of motion. Assessment and Plan Assessment: ASSESSMENT Newly diagnosed 3.8 cm mass at the anterior head of the Pancreas- Suspected malignancy. Dilated CBD at the pancreatic head. Recent Acute anaphylactic reaction Elevated liver enzymes and alk phos. Ongoing nicotine addiction Hypertension Osteoarthritis Anxiety/depression Chronic low back pain GI/DVT prophylaxsis PLAN: Patient has newly diagnosed pancreatic mass and dilated common bile duct and pancreatic duct, findings suggestive of possible pancreatic neoplasm. GI has been consulted- Dr. Love, patient will need endoscopic ultrasound for possible biopsy of the pancreatic head mass. Patient Condition at Discharge: Fair Plan - Discharge Summary Discharge Rx Participant: No New Discharge Prescriptions: Continue amLODIPine BESYLATE/BENAZEPRIL [amLODIPine BESYLATE/BENAZEPRIL 10-40 MG] 1 cap PO DAILY Gabapentin [Neurontin] 300 mg PO BID PRN PRN Reason: Pain Albuterol Sulfate [Albuterol Sulfate Hfa] 2 puff INHALATION RT-Q4H PRN PRN Reason: Shortness Of Breath metFORMIN HCL [Glucophage Xr] 500 mg PO DAILY #30 tab Omeprazole 40 mg PO DAILY Discharge Medication List amLODIPine BESYLATE/BENAZEPRIL [amLODIPine BESYLATE/BENAZEPRIL 10-40 MG] 1 cap PO DAILY 09/25/13 [History] Gabapentin [Neurontin] 300 mg PO BID PRN 12/06/16 [History] Albuterol Sulfate [Albuterol Sulfate Hfa] 2 puff INHALATION RT-Q4H PRN 09/04/20 [History] metFORMIN HCL [Glucophage Xr] 500 mg PO DAILY #30 tab 09/06/20 [Rx] Omeprazole 40 mg PO DAILY 09/24/20 [History] Follow up Appointment(s)/Referral(s): Sheron Lorenz MD [Primary Care Provider] - 3 Days
--- NOTE | 2020-09-28 13:40 | PN ---
PROGRESS NOTE DATE OF SERVICE: 09/28/2020. HISTORY: The patient is a 65-year-old female admitted to hospital with severe abdominal pain. She was noted to have pancreatic mass with biliary obstruction and noted to have elevated serum transaminases and t bili as well as alkaline phosphatase. The patient was scheduled to be seen at [facility] for EUS an ERCP on an outpatient basis on October 02, but in the meantime, because of abdominal pain, she was admitted to the hospital. We are awaiting transfer to [facility] currently. She is feeling much better she has some abdominal pain requiring pain medications. No nausea, no vomiting. PHYSICAL EXAMINATION: Appears comfortable. VITAL SIGNS: Stable. Blood pressure is 162/83, pulse rate 79, temperature 99. HEENT examination unremarkable. Sclerae anicteric. Oral cavity no lesions. NECK: No JVD. No lymph node enlargement. CHEST: Clear to auscultation. HEART: Regular rate and rhythm. ABDOMEN: Soft. There was mild tenderness in the epigastric area. Bowel sounds are positive. No organomegaly. EXTREMITIES: No pedal edema. NEURO: She is alert and oriented x3. No focal deficits. LABS: No labs available from today. Labs from yesterday WBC 8, hemoglobin 11, platelets normal. T-bilirubin is 4.2, alkaline phosphatase 678, AST 20 and ALT 352. IMPRESSION: 1. Obstructive jaundice secondary to pancreatic mass causing abdominal pain. The patient clinically more stable. She is awaiting transfer to [facility] for EUS/ERCP. 2. Abdominal pain on pain medications as needed, tolerating well. RECOMMENDATIONS: Continue with symptomatic and supportive care. Discussed with the patient about transfer and transfer is not possible she can be discharged home today with an outpatient followup for an EUS and ERCP at [facility] on October 02 that has also been scheduled a week ago. The patient is agreeable with this plan. Discussed with Dr. Cortez. We will follow with you closely. MMODL / IJN: [id number] /
== END 2020-09-28 12:52 | disposition home or self-care (01) | DRG 435 ==
LOC: EC 22:16 → 4SSUR 09-24 00:22 → OBSVTOIN 09-26 09:42
PROVIDERS: ADMIT Hospitalist; ATTEND Hospitalist
DX: C25.0 Malignant neoplasm of head of pancreas (principal); K83.1 Obstruction of bile duct; Z68.1 Body mass index [BMI] 19.9 or less, adult; K86.89 Other specified diseases of pancreas; K83.8 Other specified diseases of biliary tract; G89.29 Other chronic pain; M81.0 Age-related osteoporosis without current pathological fracture; I10 Essential (primary) hypertension; R10.9 Unspecified abdominal pain; M54.5 Low back pain; R74.8 Abnormal levels of other serum enzymes; F17.210 Nicotine dependence, cigarettes, uncomplicated; M19.90 Unspecified osteoarthritis, unspecified site; R63.4 Abnormal weight loss; F32.9 Major depressive disorder, single episode, unspecified; F41.9 Anxiety disorder, unspecified; Z87.892 Personal history of anaphylaxis; Z20.822 Contact with and (suspected) exposure to COVID-19; Z79.84 Long term (current) use of oral hypoglycemic drugs; Z79.899 Other long term (current) drug therapy; Z87.19 Personal history of other diseases of the digestive system; Z98.51 Tubal ligation status; Z86.79 Personal history of other diseases of the circulatory system; Z88.1 Allergy status to other antibiotic agents
CPT/HCPCS: 36415; 74019; 80053; 82150; 83690; 85025; 85610; 85730; 87635; 94640; 96361; 96374; 96375; 99284

== ENCOUNTER 2020-10-26 18:25 | Inpatient (IN) | payer MEDICARE, OTHER ==
[2020-10-26] MEDS ORDERED: PANTOPRAZOLE 40 MG/10 ML VIAL IVP STA (19:02)
[2020-10-26] MEDS ORDERED: Acetaminophen-Codeine 300-30mg TAB PO STA (19:02)
[2020-10-26] MEDS ORDERED: SODIUM CHLORIDE 0.9% 1,000 ML IV STA (19:02)
--- NOTE | 2020-10-26 19:11 | ED ---
Back Pain HPI - General Chief Complaint: Back Pain/Injury Stated Complaint: Back pain, Fever Time Seen by Provider: 10/26/20 18:52 Source: patient Limitations: no limitations - History of Present Illness Initial Comments: 65-year-old female was at the emergency department with chief complaint of abdominal pain. Patient reports she was diagnosed pancreatic cancer 2 months ago is now experience the symptoms. Her oncologist is Dr. Muller. States she is yet to start her chemotherapy treatment. States for the past week she has been experiencing symptoms in the midepigastric abdominal region but denies any nausea vomiting or diarrhea. States she does not have any pain medication at home. States she is not supposed to take any NSAIDs. Denies any fevers or chills. States she is scheduled for a PET scan in about 10 days. States Tylenol 3 works well for her pain. - Related Data Home Medications Medication Instructions Recorded Confirmed amLODIPine BESYLATE/BENAZEPRIL 1 cap PO DAILY 09/25/13 09/24/20 [amLODIPine BESYLATE/BENAZEPRIL 10-40 MG] Gabapentin [Neurontin] 300 mg PO BID PRN 12/06/16 09/24/20 Albuterol Sulfate [Albuterol 2 puff INHALATION RT-Q4H PRN 09/04/20 09/24/20 Sulfate Hfa] Omeprazole 40 mg PO DAILY 09/24/20 09/24/20 Previous Rx's Medication Instructions Recorded metFORMIN HCL [Glucophage XR] 500 mg PO DAILY #30 tab 09/06/20 Allergies Allergy/AdvReac Type Severity Reaction Status Date / Time erythromycin base AdvReac Nausea Verified 10/26/20 18:33 [Erythromycin Base] Review of Systems ROS Statement: Those systems with pertinent positive or pertinent negative responses have been documented in the HPI. ROS Other: All systems not noted in ROS Statement are negative. Past Medical History Past Medical History: Eye Disorder, Hypertension, Osteoarthritis (OA) Additional Past Medical History / Comment(s): Osteoporosis, Lower Back Pain, Sciatica., TOLD YEARS AGO SHE HAD HEART MURMUR- NO TX, HX ACUTE BRONCHITIS(SMOKER), GLASSES DAILY USE History of Any Multi-Drug Resistant Organisms: None Reported Past Surgical History: Orthopedic Surgery, Tubal Ligation Additional Past Surgical History / Comment(s): 2 pins right hip-dislocated 1976 Past Anesthesia/Blood Transfusion Reactions: No Reported Reaction Past Psychological History: Anxiety, Depression Smoking Status: Current every day smoker Past Alcohol Use History: Daily Past Drug Use History: None Reported - Past Family History Mother Family Medical History: Liver Disease Father Family Medical History: Cancer Additional Family Medical History / Comment(s): Lung and liver cancer. General Exam Limitations: no limitations General appearance: alert, in no apparent distress Head exam: Present: atraumatic, normocephalic, normal inspection Eye exam: Present: normal appearance, PERRL, EOMI Pupils: Present: normal accommodation ENT exam: Present: normal exam, normal oropharynx, mucous membranes moist Neck exam: Present: normal inspection, full ROM. Absent: tenderness Respiratory exam: Present: normal lung sounds bilaterally. Absent: respiratory distress Cardiovascular Exam: Present: regular rate, normal rhythm, normal heart sounds. Absent: systolic murmur GI/Abdominal exam: Present: soft, tenderness (Epigastric tenderness). Absent: distended, guarding, rebound, rigid Extremities exam: Present: normal inspection, full ROM, normal capillary refill. Absent: tenderness, pedal edema, joint swelling Back exam: Present: normal inspection, full ROM, tenderness (Lumbar tenderness) Neurological exam: Present: alert, oriented X3 Psychiatric exam: Present: normal affect, normal mood Skin exam: Present: warm, dry, intact, normal color Course Vital Signs 10/26/20 18:31 Temperature 98.8 F Pulse Rate 103 H Respiratory 18 Rate Blood Pressure 159/89 O2 Sat by Pulse 100 Oximetry Medical Decision Making - Medical Decision Making 65-year-old female was at the emergency department with chief complaint of abdominal pain. On physical examination, mild epigastric abdominal tenderness. Mid lower lumbar spine tenderness. X-rays unremarkable. CBC shows a mild leukocytosis of 14,000. UA shows elevated glucose. CMP shows mild transaminitis. Patient is hyponatremic, however this appears to be her b aseline. She is not undergoing any chemotherapy at this time. Patient was given oral Tylenol 3. She was then given morphine with some improvement in symptoms but it continues to persist. Patient will be admitted for further medical management. Case discussed with Spoke with ABENA Dhillon who will admit for Dr. Brito. Oncology consult. - Lab Data Result diagrams: 10/26/20 19:27 10/26/20 19:27 Lab Results 10/26/20 10/26/20 10/26/20 Range/Units 19:27 19:27 19:27 WBC 14.3 H (3.8-10.6) k/uL RBC 4.51 (3.80-5.40) m/uL Hgb 12.7 (11.4-16.0) gm/dL Hct 39.4 (34.0-46.0) % MCV 87.3 (80.0-100.0) fL MCH 28.1 (25.0-35.0) pg MCHC 32.2 (31.0-37.0) g/dL RDW 15.3 (11.5-15.5) % Plt Count 485 H (150-450) k/uL MPV 8.3 Neutrophils % 77 % Lymphocytes % 15 % Monocytes % 4 % Eosinophils % 2 % Basophils % 1 % Neutrophils # 11.0 H (1.3-7.7) k/uL Lymphocytes # 2.2 (1.0-4.8) k/uL Monocytes # 0.6 (0-1.0) k/uL Eosinophils # 0.2 (0-0.7) k/uL Basophils # 0.1 (0-0.2) k/uL Poikilocytosis Slight Sodium 129 L (137-145) mmol/L Potassium 3.8 (3.5-5.1) mmol/L Chloride 101 (98-107) mmol/L Carbon Dioxide 20 L (22-30) mmol/L Anion Gap 8 mmol/L BUN 7 (7-17) mg/dL Creatinine 0.46 L (0.52-1.04) mg/dL Est GFR (CKD-EPI)AfAm >90 (>60 ml/min/1.73 sqM) Est GFR (CKD-EPI)NonAf >90 (>60 ml/min/1.73 sqM) Glucose 222 H (74-99) mg/dL Calcium 8.7 (8.4-10.2) mg/dL Total Bilirubin 2.4 H (0.2-1.3) mg/dL AST 40 H (14-36) U/L ALT 25 (4-34) U/L Alkaline Phosphatase 336 H (38-126) U/L Total Protein 6.4 (6.3-8.2) g/dL Albumin 3.2 L (3.5-5.0) g/dL Lipase 275 (23-300) U/L Urine Color Yellow Urine Appearance Clear (Clear) Urine pH 6.5 (5.0-8.0) Ur Specific Garita 1.015 (1.001-1.035) Urine Protein Trace H (Negative) Urine Glucose (UA) 4+ H (Negative) Urine Ketones Negative (Negative) Urine Blood Negative (Negative) Urine Nitrite Negative (Negative) Urine Bilirubin Negative (Negative) Urine Urobilinogen 3.0 (<2.0) mg/dL Ur Leukocyte Esterase Negative (Negative) Disposition Clinical Impression: Abdominal pain Disposition: ADMITTED IP TO THIS HOSP Condition: Good Is patient prescribed a controlled substance at d/c from ED?: No Referrals: Sheron Lorenz MD [Primary Care Provider] - 1-2 days Time of Disposition: 20:51
[2020-10-26 19:48] LABS: Appearance,Urine Clear (Clear); Basophils # (A) 0.1 k/uL (0-0.2); Basophils % (A) 1 %; Bilirubin,Urine Negative (Negative); Blood,Urine Negative (Negative); Color,Urine Yellow; Eosinophils # (A) 0.2 k/uL (0-0.7); Eosinophils % (A) 2 %; Glucose,Urine (UA) 4+ (Negative); HCT 39.4 % (34.0-46.0); HGB 12.7 gm/dL (11.4-16.0); Ketones,Urine Negative (Negative); Leukocyte Esterase,Urine Negative (Negative); Lymphocytes # (A) 2.2 k/uL (1.0-4.8); Lymphocytes % (A) 15 %; MCH 28.1 pg (25.0-35.0); MCHC 32.2 g/dL (31.0-37.0); MCV 87.3 fL (80.0-100.0); Mean Platelet Volume 8.3; Monocytes # (A) 0.6 k/uL (0-1.0); Monocytes % (A) 4 %; Neutrophils % (A) 77 %; Nitrite,Urine Negative (Negative); PH, Urine 6.5 (5.0-8.0); Platelet Count 485 k/uL (150-450); Poikilocytosis Slight; Protein,Urine Trace (Negative); RBC 4.51 m/uL (3.80-5.40); RDW 15.3 % (11.5-15.5); Specific Gravity,Urine 1.015 (1.001-1.035); WBC 14.3 k/uL (3.8-10.6)
[2020-10-26 19:56] LABS: ALT 25 U/L (4-34); AST 40 U/L (14-36); African American GFR (CKD) >90 (>60 ml/min/1.73 sqM); Albumin 3.2 g/dL (3.5-5.0); Alkaline Phosphatase 336 U/L (38-126); Anion Gap 8 mmol/L; Blood Urea Nitrogen 7 mg/dL (7-17); Calcium 8.7 mg/dL (8.4-10.2); Carbon Dioxide 20 mmol/L (22-30); Chloride 101 mmol/L (98-107); Glucose 222 mg/dL (74-99); Lipase 275 U/L (23-300); Non-African American GFR(CKD) >90 (>60 ml/min/1.73 sqM); Potassium 3.8 mmol/L (3.5-5.1); Sodium 129 mmol/L (137-145); Total Bilirubin 2.4 mg/dL (0.2-1.3); Total Protein 6.4 g/dL (6.3-8.2)
--- NOTE | 2020-10-26 20:27 | XR ---
EXAMINATION TYPE: XR lumbar spine 2 or 3V DATE OF EXAM: 10/26/2020 COMPARISON: 02/19/2014 HISTORY: Back pain TECHNIQUE: 3 views FINDINGS: Lumbar vertebra have normal alignment. There is osteosclerosis at L5-S1. There is vacuum di sc at L5-S1. Sacroiliac joints are normal. There is no evidence of a fracture. The posterior elements are intact. IMPRESSION: There is spondylosis at L5-S1 that is mostly new compared to old exam. No fracture seen..
[2020-10-26] MEDS ORDERED: MORPHINE SULFATE 4 MG/ML SYRINGE IVP STA (20:39)
[2020-10-26] MEDS ORDERED: LORazepam 2 MG/ML INJ IV PRN (20:47)
[2020-10-26] MEDS ORDERED: HYDROmorphone 1 MG/ML 1 ML SYRINGE IVP PRN (20:47)
[2020-10-26] MEDS ORDERED: ONDANSETRON 4 MG/2 ML VIAL IVP PRN (20:47)
[2020-10-26] MEDS ORDERED: NALOXONE 0.4 MG/ML 1 ML VIAL IV PRN (20:47)
[2020-10-26] MEDS ORDERED: MORPHINE SULFATE 4 MG/ML SYRINGE IV PRN (20:47)
[2020-10-27 07:17] LABS: Glucose,Whole Blood 156 mg/dL (75-99)
[2020-10-27 12:01] LABS: Glucose,Whole Blood 216 mg/dL (75-99)
[2020-10-27] MEDS: SODIUM CHLORIDE 0.9% 1,000 ML IV SCH (12:23)
[2020-10-27] MEDS ORDERED: GABAPENTIN 300 MG CAP PO PRN (13:25)
[2020-10-27] MEDS ORDERED: ALBUTEROL NEBULIZED 2.5 MG/3 ML INHALATION PRN (13:25)
[2020-10-27] MEDS ORDERED: SENNOSIDES 8.6 MG TAB PO PRN (13:30)
[2020-10-27] MEDS ORDERED: polyethylene glycoL 3350 17 GM POWD.PACK PO PRN (13:30)
--- NOTE | 2020-10-27 13:30 | P.HPIM ---
History of Present Illness This is a pleasant 65-year-old female came in with severe abdominal pain diffuse abdominal pain sharp 10 x 10 nonradiating. Patient is also pending a back pain because of which patient had an x-ray of the back which showed spondylolisthesis of the lumbar spine. and effusions patient does have leukocytosis. Patient was recently diagnosed with pancreatic cancer in month of September and patient is undergoing further workup before chemotherapy. Patient has a PET scan scheduled her in 10 days. Patient denied any nausea vomiting diarrhea. Patient denied any constipation either. Patient was started on morphine and Dilaudid for pain. Patient will be started on long-acting opiate for baseline pain control. Patient will be continued on as needed Dilaudid. Patient is also found to be hyponatremic, further workup for hyponatremia was ordered. REVIEW OF SYSTEMS: CONSTITUTIONAL: No fever, no malaise, no fatigue. HEENT: No recent visual problems or hearing problems. Denied any sore throat. CARDIOVASCULAR: No chest pain, orthopnea, PND, no palpitations, no syncope. PULMONARY: No shortness of breath, no cough, no hemoptysis. GASTROINTESTINAL: As mentioned in HPI NEUROLOGICAL: No headaches, no weakness, no numbness. HEMATOLOGICAL: Denies any bleeding or petechiae. GENITOURINARY: Denies any burning micturition, frequency, or urgency. MUSCULOSKELETAL/RHEUMATOLOGICAL: Denies any joint pain, swelling, or any muscle pain. ENDOCRINE: Denies any polyuria or polydipsia. The rest of the 14-point review of systems is negative. PHYSICAL EXAMINATION: GENERAL: The patient is alert and oriented x3, not in any acute distress. Thin built HEENT: Pupils are round and equally reacting to light. EOMI. No scleral icterus. No conjunctival pallor. Normocephalic, atraumatic. No pharyngeal erythema. No thyromegaly. CARDIOVASCULAR: S1 and S2 present. No murmurs, rubs, or gallops. PULMONARY: Chest is clear to auscultation, no wheezing or crackles. ABDOMEN: Soft, significant diffuse tenderness mostly in the epigastric area nondistended, normoactive bowel sounds. No palpable organomegaly. MUSCULOSKELETAL: No joint swelling or deformity. EXTREMITIES: No cyanosis, clubbing, or pedal edema. NEUROLOGICAL: Gross neurological examination did not reveal any focal deficits. SKIN: No rashes. Assessment and plan -Severe abdominal pain: Secondary to pancreatic cancer, patient will be started on long-acting opiate, fentanyl patch 25 g and will continue with the when necessary Dilaudid pain management will be consulted patient may benefit from celiac nerve block -Hyponatremia mostly hypervolemic further workup will be ordered including TSH, serum osmolality urine osmolality, urine random sodium serum random creatinine -Type 2 diabetes mellitus patient will be started on sliding scale insulin hold off on oral hyperglycemic agents -Hypertension DVT prophylaxis: Lovenox 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, head tremor History of Any Multi-Drug Resistant Organisms: None Reported Past Surgical History: Orthopedic Surgery, Tubal Ligation Additional Past Surgical History / Comment(s): 2 pins right hip-dislocated 1975 Past Anesthesia/Blood Transfusion Reactions: No Reported Reaction Past Psychological History: Anxiety, Depression Smoking Status: Current every day smoker Past Alcohol Use History: Daily Additional Past Alcohol Use History / Comment(s): started smoking @ age 17(1971)- 1 pack a day Past Drug Use History: None Reported Additional Drug Use History / Comment(s): Quit drinking after her last discharge, 09/07/20 was drinking 3-4 beers a day - Past Family History Mother Family Medical History: Liver Disease Father Family Medical History: Cancer Additional Family Medical History / Comment(s): Lung and liver cancer. Medications and Allergies Home Medications Medication Instructions Recorded Confirmed Type amLODIPine BESYLATE/BENAZEPRIL 1 cap PO DAILY 09/25/13 10/26/20 History [amLODIPine BESYLATE/BENAZEPRIL 10-40 MG] Gabapentin [Neurontin] 300 mg PO BID PRN 12/06/16 10/26/20 History Albuterol Sulfate [Albuterol 2 puff INHALATION RT-Q4H PRN 09/04/20 10/26/20 History Sulfate Hfa] Omeprazole 40 mg PO DAILY 09/24/20 10/26/20 History traMADol HCL [Ultram] 1 tab PO BID PRN 10/26/20 10/26/20 History Allergies Allergy/AdvReac Type Severity Reaction Status Date / Time erythromycin base AdvReac Nausea Verified 10/26/20 18:33 [Erythromycin Base] Physical Exam Vitals: Vital Signs Temp Pulse Pulse Resp BP BP Pulse Ox 10/27/20 11:50 99.2 F 79 16 149/65 100 10/27/20 05:58 98.1 F 10/27/20 04:19 100.3 F H 82 16 129/65 100 10/26/20 22:35 98.3 F 88 16 159/74 100 10/26/20 21:31 98.6 F 92 16 148/82 100 10/26/20 18:31 98.8 F 103 H 18 159/89 100 Intake and Output 10/26/20 10/27/20 10/27/20 22:59 06:59 14:59 Other: Voiding Method Toilet # Voids 1 2 # Bowel Movements 0 Weight 50.349 kg 50.349 kg Results CBC & Chem 7: 10/26/20 19:27 10/26/20 19:27 Labs: Abnormal Lab Results - Last 24 Hours (Table) 10/26/20 10/26/20 10/26/20 Range/Units 19:27 19:27 19:27 WBC 14.3 H (3.8-10.6) k/uL Plt Count 485 H (150-450) k/uL Neutrophils # 11.0 H (1.3-7.7) k/uL Sodium 129 L (137-145) mmol/L Carbon Dioxide 20 L (22-30) mmol/L Creatinine 0.46 L (0.52-1.04) mg/dL Glucose 222 H (74-99) mg/dL POC Glucose (mg/dL) (75-99) mg/dL Osmolality (280-301) mosm/kg Total Bilirubin 2.4 H (0.2-1.3) mg/dL AST 40 H (14-36) U/L Alkaline Phosphatase 336 H (38-126) U/L Albumin 3.2 L (3.5-5.0) g/dL Urine Protein Trace H (Negative) Urine Glucose (UA) 4+ H (Negative) 10/26/20 10/27/20 10/27/20 Range/Units 19:27 07:15 11:48 WBC (3.8-10.6) k/uL Plt Count (150-450) k/uL Neutrophils # (1.3-7.7) k/uL Sodium (137-145) mmol/L Carbon Dioxide (22-30) mmol/L Creatinine (0.52-1.04) mg/dL Glucose (74-99) mg/dL POC Glucose (mg/dL) 156 H 216 H (75-99) mg/dL Osmolality 270 L (280-301) mosm/kg Total Bilirubin (0.2-1.3) mg/dL AST (14-36) U/L Alkaline Phosphatase (38-126) U/L Albumin (3.5-5.0) g/dL Urine Protein (Negative) Urine Glucose (UA) (Negative) Thrombosis Risk Factor Assmnt - Choose All That Apply Any of the Below Risk Factors Present?: No Other Risk Factors: Yes Each Risk Factor Represents 2 Points: Age 61-74 years, Malignancy Other congenital or acquired thrombophilia - If yes, enter type in comment: No Thrombosis Risk Factor Assessment Total Risk Factor Score: 4 Thrombosis Risk Factor Assessment Level: Moderate Risk
[2020-10-27] MEDS: HYDROmorphone 0.5 MG/0.5 ML SYRINGE IVP PRN (14:33)
[2020-10-27 17:29] LABS: Glucose,Whole Blood 180 mg/dL (75-99)
[2020-10-27 20:28] LABS: Glucose,Whole Blood 156 mg/dL (75-99)
--- NOTE | 2020-10-27 21:22 | P.CONS ---
History of Present Illness - Reason for Consult Consult date: 10/27/20 Pancreatic Cancer Requesting physician: Medhat Alba - Chief Complaint Abdominal Pain - History of Present Illness Mrs. Morel presents today with abdominal pain. She has not had PET scan yet. She is doing better since admission. Started on fentanyl and breakthrough Ms Morel is a pleasant -Thai female, initially hospitalized in mid 09/09 because of an allergic reaction to generally means. During that admission she was found to have elevated liver enzymes. She had an abdominal ultrasound that showed common bile duct and intrahepatic duct dilatation with possible mass in the pancreatic head. This was performed on 09/04/20. This led to GI consult an MRCP. This confirmed mild to moderate central intrahepatic along with extrahepatic biliary dilatation. There was abrupt cutoff seen in the region of the pancreatic head. There was suggestion of a pancreatic head mass measuring 3.8 x 3.2 cm. There appeared to be generalized atrophy and ductal dilatation in the pancreas. There was no suspicious adenopathy or liver lesions seen. The patient was then seen by GI, and was recommended a referral to [facility] for endoscopic ultrasound. Prior to that she was admitted to the hospital for increasing abdominal pain, and decreased appetite, on 09/24/20. During that admission bilirubin was 2.4, AST 501, ALT 462 and alkaline phosphata se 778. The patient was then transferred to [facility] where she underwent an EUS on 10/02/20. The procedure note was not available to us at the time of her initial consultation. 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 The patient had ERCP at [facility] on 10/09/20. The procedure report notes unsuccessful biliary elevation due to large, bulging and downward facing major papilla. It is not clear the patient had stenting done from the report though the patient states that she thinks she has a stent. She was then referred here for further evaluation and recommendations. She denied any prior history of malignancy. Slow family history of pancreas c ancer, ovarian or breast cancer. She has a history of smoking at least a pack a day since her teens. She is also drinking about 3-6 beers a day on a regular basis for many years. She quit in 09/09. She states that her abdominal pain is persistent but reasonably controlled with tramadol. On October 19 she [address] by Dr[address] Muller in offive The patient is being seen for new diagnosis of carcinoma of the head of the pancreas. Symptoms include abdominal discomfort and some drop in appetite. Pain is easily well controlled with tramadol. Baseline performance status is well maintained. - The pathology, staging studies so far, and indications were discussed in detail with her. She was advised that the standard of care for localized pancreatic cancer would be upfront surgical evaluation. At this time the patient has had abdominal x-rays, ultrasound and MRI is as summarized in the HPI. So far these have not shown any definite evidence of metastatic disease. - The EUS report will be obtained from [facility] and reviewed to see if there is any evidence of regional lymph node involvement or of adjacent major organs. A PET scan will be ordered for additional staging. Check labs today including CA 19-9. - Patient will be seen in follow-up after the above testing is completed. If t here does not appear to be any obvious metastatic spread, she'll be referred to surgical oncology, Dr. Rock, at [facility] for surgical evaluation. - Continue tramadol for pain control. Physician notes, procedure notes, pathology reports, MRCP reports, x-ray and ultrasound reports reviewed and summarized above. EUS report will be requested from [facility]. 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, head tremor History of Any Multi-Drug Resistant Organisms: None Reported Past Surgical History: Orthopedic Surgery, Tubal Ligation Additional Past Surgical History / Comment(s): 2 pins right hip-dislocated 1975 Past Anesthesia/Blood Transfusion Reactions: No Reported Reaction Past Psychological History: Anxiety, Depression Smoking Status: Current every day smoker Past Alcohol Use History: Daily Additional Past Alcohol Use History / Comment(s): started smoking @ age 17(1971)- 1 pack a day Past Drug Use History: None Reported Additional Drug Use History / Comment(s): Quit drinking after her last discharge, 09/07/20 was drinking 3-4 beers a day - Past Family History Mother Family Medical History: Liver Disease Father Family Medical History: Cancer Additional Family Medical History / Comment(s): Lung and liver cancer. Medications and Allergies Home Medications Medication Instructions Recorded Confirmed Type amLODIPine BESYLATE/BENAZEPRIL 1 cap PO DAILY 09/25/13 10/26/20 History [amLODIPine BESYLATE/BENAZEPRIL 10-40 MG] Gabapentin [Neurontin] 300 mg PO BID PRN 12/06/16 10/26/20 History Albuterol Sulfate [Albuterol 2 puff INHALATION RT-Q4H PRN 09/04/20 10/26/20 History Sulfate Hfa] Omeprazole 40 mg PO DAILY 09/24/20 10/26/20 History traMADol HCL [Ultram] 1 tab PO BID PRN 10/26/20 10/26/20 History Allergies Allergy/AdvReac Type Severity Reaction Status Date / Time erythromycin base AdvReac Nausea Verified 10/26/20 18:33 [Erythromycin Base] Physical Exam Vitals: Vital Signs Temp Pulse Pulse Resp BP BP Pulse Ox 10/27/20 05:58 98.1 F 10/27/20 04:19 100.3 F H 82 16 129/65 100 10/26/20 22:35 98.3 F 88 16 159/74 100 10/26/20 21:31 98.6 F 92 16 148/82 100 10/26/20 18:31 98.8 F 103 H 18 159/89 100 Intake and Output 10/26/20 10/27/20 10/27/20 22:59 06:59 14:59 Other: Voiding Method Toilet # Voids 1 2 # Bowel Movements 0 Weight 50.349 kg 50.349 kg - Constitutional General appearance: no acute distress, thin - EENT Eyes: PERRLA ENT: hard of hearing, NA/AT - Neck Neck: normal ROM - Respiratory Respiratory: bilateral: diminished - Cardiovascular Rhythm: regular - Gastrointestinal General gastrointestinal: soft, tenderness - Integumentary Integumentary: pale - Neurologic Neurologic: CNII-XII intact - Musculoskeletal Musculoskeletal: generalized weakness - Psychiatric Psychiatric: A&O x's 3, appropriate affect, intact judgment & insight Results CBC & Chem 7: 10/26/20 19:27 10/26/20 19:27 Labs: Abnormal Lab Results - Last 24 Hours (Table) 10/26/20 10/26/20 10/26/20 Range/Units 19:27 19:27 19:27 WBC 14.3 H (3.8-10.6) k/uL Plt Count 485 H (150-450) k/uL Neutrophils # 11.0 H (1.3-7.7) k/uL Sodium 129 L (137-145) mmol/L Carbon Dioxide 20 L (22-30) mmol/L Creatinine 0.46 L (0.52-1.04) mg/dL Glucose 222 H (74-99) mg/dL POC Glucose (mg/dL) (75-99) mg/dL Osmolality (280-301) mosm/kg Total Bilirubin 2.4 H (0.2-1.3) mg/dL AST 40 H (14-36) U/L Alkaline Phosphatase 336 H (38-126) U/L Albumin 3.2 L (3.5-5.0) g/dL Urine Protein Trace H (Negative) Urine Glucose (UA) 4+ H (Negative) 10/26/20 10/27/20 Range/Units 19:27 07:15 WBC (3.8-10.6) k/uL Plt Count (150-450) k/uL Neutrophils # (1.3-7.7) k/uL Sodium (137-145) mmol/L Carbon Dioxide (22-30) mmol/L Creatinine (0.52-1.04) mg/dL Glucose (74-99) mg/dL POC Glucose (mg/dL) 156 H (75-99) mg/dL Osmolality 270 L (280-301) mosm/kg Total Bilirubin (0.2-1.3) mg/dL AST (14-36) U/L Alkaline Phosphatase (38-126) U/L Albumin (3.5-5.0) g/dL Urine Protein (Negative) Urine Glucose (UA) (Negative) Assessment and Plan (1) Pancreatic cancer Current Visit: Yes Status: Acute Code(s): C25.9 - MALIGNANT NEOPLASM OF PANCREAS, UNSPECIFIED SNOMED Code(s): 845121240 (2) Back ache Current Visit: Yes Status: Acute Code(s): M54.9 - DORSALGIA, UNSPECIFIED SNOMED Code(s): 639505240 (3) Abdominal pain Current Visit: Yes Status: Acute Code(s): R10.9 - UNSPECIFIED ABDOMINAL PAIN SNOMED Code(s): 70393826 (4) Hyperbilirubinemia Current Visit: No Status: Acute Code(s): E80.6 - OTHER DISORDERS OF BILIRUBIN METABOLISM SNOMED Code(s): 82081330 Plan: Agree with Fentanyl patch and breakthrough Bowel regimen CT abdomen and pelvis to re-evaluate cancer May need further imaging lower spine
[2020-10-27 22:48] LABS: Creatinine,Urine Random 120.6 mg/dL
[2020-10-28] MEDS: SODIUM CHLORIDE 0.9% 1,000 ML IV SCH ×2 (00:28→10:23)
[2020-10-28] MEDS: HYDROmorphone 0.5 MG/0.5 ML SYRINGE IVP PRN ×2 (05:30→09:03)
[2020-10-28] MEDS ORDERED: ACETAMINOPHEN IV (For NPO) 1,000 MG in EMPTY BAG 1 BAG IVPB STA (06:14)
[2020-10-28] MEDS ORDERED: VANCOMYCIN IV PER PHARMACY 1 EACH MISC MISCELLANE PRN (06:15)
[2020-10-28 07:15] LABS: Glucose,Whole Blood 165 mg/dL (75-99)
[2020-10-28] MEDS: ENOXAPARIN 40 MG/0.4 ML SYRINGE SQ SCH ×2 (07:21→07:25)
[2020-10-28] MEDS: lisinopriL 20 MG TAB PO SCH (07:22)
[2020-10-28] MEDS: amLODIPine 10 MG TAB PO SCH (07:22)
[2020-10-28] MEDS: PANTOPRAZOLE 40 MG TABLET PO SCH (07:22)
[2020-10-28 07:28] LABS: Basophils # (A) 0.1 k/uL (0-0.2); Basophils % (A) 1 %; Eosinophils % (A) 0 %; HCT 31.8 % (34.0-46.0); HGB 10.3 gm/dL (11.4-16.0); Hypochromasia Slight; Lymphocytes # (A) 1.6 k/uL (1.0-4.8); Lymphocytes % (A) 9 %; MCH 29.2 pg (25.0-35.0); MCHC 32.5 g/dL (31.0-37.0); MCV 89.8 fL (80.0-100.0); Mean Platelet Volume 7.9; Monocytes % (A) 6 %; Neutrophils # (A) 14.4 k/uL (1.3-7.7); Neutrophils % (A) 83 %; Platelet Count 582 k/uL (150-450); Poikilocytosis Slight; RBC 3.54 m/uL (3.80-5.40); RDW 15.1 % (11.5-15.5); WBC 17.4 k/uL (3.8-10.6)
[2020-10-28] MEDS: VANCOMYCIN 1,000 MG in SODIUM CHLORIDE 0.9% 250 ML IVPB SCH ×2 (07:30→19:01)
[2020-10-28 07:43] LABS: ALT 18 U/L (4-34); AST 30 U/L (14-36); African American GFR (CKD) >90 (>60 ml/min/1.73 sqM); Albumin 2.8 g/dL (3.5-5.0); Albumin/Globulin Ratio 0.9; Alkaline Phosphatase 256 U/L (38-126); Anion Gap 9 mmol/L; Blood Urea Nitrogen 6 mg/dL (7-17); Calcium 8.2 mg/dL (8.4-10.2); Carbon Dioxide 20 mmol/L (22-30); Chloride 103 mmol/L (98-107); Glucose 152 mg/dL (74-99); Non-African American GFR(CKD) >90 (>60 ml/min/1.73 sqM); Potassium 3.5 mmol/L (3.5-5.1); Sodium 132 mmol/L (137-145); Total Bilirubin 2.2 mg/dL (0.2-1.3); Total Protein 5.8 g/dL (6.3-8.2)
[2020-10-28] MEDS: IOPAMIDOL CONTRAST (ORAL USE) VIAL PO PRN ×2 (08:00→08:59)
--- NOTE | 2020-10-28 09:53 | XR ---
EXAMINATION TYPE: XR chest 2V DATE OF EXAM: 10/28/2020 COMPARISON: NONE TECHNIQUE: PA and lateral views submitted. HISTORY: Cough fever and nausea FINDINGS: Heart size normal with no sizable pleural effusion or pneumothorax. No overt failure. Subsegmental ch anges left lung base. IMPRESSION: 1. Left basilar atelectasis favored over infiltrate correlate clinically
[2020-10-28] MEDS: PIPERACILLIN-TAZOBACTAM 3.375 GM in SODIUM CHLORIDE 0.9% 100 ML IVPB SCH ×3 (10:20→23:47)
--- NOTE | 2020-10-28 11:50 | P.PAINCN ---
History of Present Illness - Reason for Consult Consult date: 10/28/20 - History of Present Illness This is a 65-year-old patient presenting as an inpatient for significant a bdominal pain. Patient was recently diagnosed with carcinoma of the head of the pancreas two months ago and has been having worsening abdominal pain since. He describes pain throughout the abdomen described as dull and aching and constant throughout the day. He gets worse as she gets out of bed but since her admission she does not her pain has been improved slightly. She is currently on ethanol patch at 25 g an hour, gabapentin 300 mg twice a day. Daughter 1 mg every 3 hours as needed as well as morphine every 4 hours 4 mg. She did recently spiked a fever and is now on systemic antibiotics. In addition to above, 13-point review of systems is also negative for chest pain, shortness of breath, changes in vision, changes in hearing, new onset weakness, abdominal pain, diarrhea, extreme fatigue, malaise, fever, skin changes, homicidal or suicidal ideation, or bowel or bladder incontinence. Physical exam: Vital Signs: Reviewed in EMR GENERAL: Well appearing, in no acute distress PSYCH: Mood and affect is appropriate. Awake, alert, and oriented SKIN: Skin color, texture, turgor normal, no rashes or lesions HEENT: Normocephalic, atraumatic. EOM intact CV: No pedal edema RESP: Respirations are unlabored, no audible wheezing GI: Abdomen non-distended, tenderness to palpation throughout all 4 quadrants. no guarding or rebound tenderness MUSCULOSKELETAL: Bilateral upper and lower extremity strength is normal and symmetric. No atrophy or tone abnormalities are noted. Lumbar spine: Straight leg raising in the sitting position is negative for radicular pain. No pain to palpation over the lumbar spine and paraspinous muscles. Negative for pain with facet loading and back extension/rotation. Normal range of motion without pain reproduction Assessment: 1. Pancreatic cancer 2. Abdominal pain Plan: - Although at this time the patient will be good candidate for celiac plexus block, she is currently on systemic antibiotics for possible infection of unknown origin. I would not want to proceed until an infection is ruled out. Overall it does seem her pain is low better controlled than it was on admission, so this time I do feel it is appropriate to proceed with medical management and consider selective plexus block if patient's pain were to increase and if the infection was deemed to be cleared. lovenonury would need to be held for this 12 hours. I spent 50 minutes on patient care today. The time was used to review medical records including relevant urine studies and prescription history (MAPs), review of the available imaging, evaluation and examination the patient, coordination of care at the medical staff and if applicable referring physicians, as well as creation of the medical record. 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, head tremor History of Any Multi-Drug Resistant Organisms: None Reported Past Surgical History: Orthopedic Surgery, Tubal Ligation Additional Past Surgical History / Comment(s): 2 pins right hip-dislocated 1975 Past Anesthesia/Blood Transfusion Reactions: No Reported Reaction Past Psychological History: Anxiety, Depression Smoking Status: Current every day smoker Past Alcohol Use History: Daily Additional Past Alcohol Use History / Comment(s): started smoking @ age 17(1971)- 1 pack a day Past Drug Use History: None Reported Additional Drug Use History / Comment(s): Quit drinking after her last discharge, 09/07/20 was drinking 3-4 beers a day - Past Family History Mother Family Medical History: Liver Disease Father Family Medical History: Cancer Additional Family Medical History / Comment(s): Lung and liver cancer. Medications and Allergies Home Medications Medication Instructions Recorded Confirmed Type amLODIPine BESYLATE/BENAZEPRIL 1 cap PO DAILY 09/25/13 10/26/20 History [amLODIPine BESYLATE/BENAZEPRIL 10-40 MG] Gabapentin [Neurontin] 300 mg PO BID PRN 12/06/16 10/26/20 History Albuterol Sulfate [Albuterol 2 puff INHALATION RT-Q4H PRN 09/04/20 10/26/20 History Sulfate Hfa] Omeprazole 40 mg PO DAILY 09/24/20 10/26/20 History traMADol HCL [Ultram] 1 tab PO BID PRN 10/26/20 10/26/20 History Allergies Allergy/AdvReac Type Severity Reaction Status Date / Time erythromycin base AdvReac Nausea Verified 10/26/20 18:33 [Erythromycin Base] Physical Exam Vitals: Vital Signs Temp Pulse Resp BP Pulse Ox 10/28/20 05:32 101.1 F H 10/28/20 04:36 103.1 F H 96 16 156/69 100 10/27/20 21:16 98.9 F 86 10/27/20 19:42 100.4 F H 100 16 184/82 99 10/27/20 19:40 16 10/27/20 11:50 99.2 F 79 16 149/65 100 Intake and Output 10/27/20 10/28/20 10/28/20 22:59 06:59 14:59 Intake Total 240 Balance 240 Intake: Oral 240 Other: Voiding Method Toilet # Voids 1 # Bowel Movements 0 Results CBC & Chem 7: 10/28/20 06:59 10/28/20 06:59 Labs: Abnormal Lab Results - Last 24 Hours (Table) 10/26/20 10/26/20 10/27/20 Range/Units 19:27 19:27 11:48 WBC (3.8-10.6) k/uL RBC (3.80-5.40) m/uL Hgb (11.4-16.0) gm/dL Hct (34.0-46.0) % Plt Count (150-450) k/uL Neutrophils # (1.3-7.7) k/uL POC Glucose (mg/dL) 216 H (75-99) mg/dL Osmolality 270 L (280-301) mosm/kg CA 19-9 Antigen 69.5 H (0.0-34.9) U/mL 10/27/20 10/27/20 10/28/20 Range/Units 17:27 20:27 06:59 WBC 17.4 H (3.8-10.6) k/uL RBC 3.54 L (3.80-5.40) m/uL Hgb 10.3 L (11.4-16.0) gm/dL Hct 31.8 L (34.0-46.0) % Plt Count 582 H (150-450) k/uL Neutrophils # 14.4 H (1.3-7.7) k/uL POC Glucose (mg/dL) 180 H 156 H (75-99) mg/dL Osmolality (280-301) mosm/kg CA 19-9 Antigen (0.0-34.9) U/mL 10/28/20 Range/Units 07:13 WBC (3.8-10.6) k/uL RBC (3.80-5.40) m/uL Hgb (11.4-16.0) gm/dL Hct (34.0-46.0) % Plt Count (150-450) k/uL Neutrophils # (1.3-7.7) k/uL POC Glucose (mg/dL) 165 H (75-99) mg/dL Osmolality (280-301) mosm/kg CA 19-9 Antigen (0.0-34.9) U/mL PQRS Measure Charge Sheet PQRS Narrative: Smoking Status Current every day smoker Do You Want the Pneumonia No Vaccine AT THIS TIME? Blood Pressure [Right Arm] 156/69 Blood Pressure 148/82 Pain Intensity [Abdomen] 3 Pain Intensity 0 Pain Scale Used Numeric (1 - 10) Scale Used Numeric (1 - 10) Home Medications: Ambulatory Orders amLODIPine BESYLATE/BENAZEPRIL [amLODIPine BESYLATE/BENAZEPRIL 10-40 MG] 1 cap PO DAILY 09/25/13 Gabapentin [Neurontin] 300 mg PO BID PRN 12/06/16 Albuterol Sulfate [Albuterol Sulfate Hfa] 2 puff INHALATION RT-Q4H PRN 09/04/20 Omeprazole 40 mg PO DAILY 09/24/20 traMADol HCL [Ultram] 1 tab PO BID PRN 10/26/20
[2020-10-28 12:09] LABS: Glucose,Whole Blood 206 mg/dL (75-99)
[2020-10-28 12:28] VITALS: BMI 17.4
[2020-10-28] MEDS: ACETAMINOPHEN TAB 325 MG TAB PO PRN (15:10)
--- NOTE | 2020-10-28 15:38 | CT ---
EXAMINATION TYPE: CT abdomen pelvis w con DATE OF EXAM: 10/28/2020 COMPARISON: MRCP 09/06/2020 HISTORY: 65-year-old female increased pain, history of pancreatic cancer, Intractable abdominal pain TECHNIQUE: Contiguous axial scanning of the abdomen and pelvis following administration of 100 ml Omn ipaque 300 IV contrast. Delayed images through the kidneys and coronal/sagittal reconstructions perf ormed. CT DLP: 373.2 mGycm Automated exposure control for dose reduction was used. FINDINGS: Heart normal size without pericardial effusion. Lung bases clear without pleural effusion. Mild diffuse heterogeneous liver enhancement. 5 mm subtle hypodensity anterior segment 3 left liver l obe, axial image 20. There is pneumobilia with interval placement of a metal stent which extends from the bile duct anteri natalee into the gastric antrum. Redemonstrated partially calcified, poorly defined pancreatic head mass. It is estimated at 2.8 cm wi de by 3.3 cm craniocaudal but exact margins are difficult to delineate. Marked upstream dilatation of the main pancreatic duct redemonstrated a 1.1 cm and cut off at the level of the pancreatic head. Peripancreatic lymph node enlarged at 1.3 cm, coronal image 27 and axial image 22. There is some flattening of the anterior wall of the upper SMV probably due to extrinsic mass effect. There is 180 degree anterior contact of the upper SMV. Portal venous system otherwise patent. No enc asement of the celiac axis or SMA. Adrenal glands, kidneys, spleen within normal limits. Thickened appendix up to 9 mm but with intrinsic air arguing against any acute appendicitis. Moderate atherosclerotic calcifications abdominal aorta. No aneurysm. Moderate atherosclerotic narrow ing at the origin of the celiac axis. No dilated small bowel, free fluid, or free air. Moderate stool burden. No pericolonic inflammatory change. This seems to be some prominent fold thickening within the gastric fundus and proximal body. Correlat ion can be made to exclude gastritis. Bladder is urine distended. Uterus retroverted. No abnormal fluid collection in the pelvis or pelvic lymphadenopathy. Bones: Right-sided dynamic hip screw fixation. Mild to moderate degenerative change of both hips. Adv anced disc/endplate degenerative change L5-S1. IMPRESSION: 1. POORLY DEFINED , PARTIALLY CALCIFIED PANCREATIC HEAD MASS MEASURING APPROXIMATELY 3.3 X 2.8 CM. TH IS RESULTS IN CONTINUED CUT OFF OF THE MAIN PANCREATIC DUCT AND BILE DUCT. 2. INTERVAL PLACEMENT OF A METAL STENT ACROSS THE BILE DUCT AND ANTERIORLY INTO THE GASTRIC ANTRUM. S ECONDARY PNEUMOBILIA. 3. MILD DIFFUSE HETEROGENEOUS LIVER ENHANCEMENT MAY BE RELATED TO THE PHASE OF IMAGING. CORRELATE WIT H LFT'S TO EXCLUDE HEPATITIS. 4. A SUBTLE 5 MM HYPODENSE LESION LEFT LIVER LOBE. ATTENTION ON FOLLOW-UP TO EXCLUDE A SMALL HEPATIC METASTASIS. 5. SLIGHT FLATTENING OF THE ANTERIOR MARGIN OF THE UPPER SMV LIKELY FROM EXTRINSIC MASS EFFECT. THERE IS 180 DEGREES OF ANTERIOR CONTACT AT THE UPPER SMV. OTHERWISE, NO VASCULAR ENCASEMENT. 6. A 1.3 CM PERIPANCREATIC LYMPH NODE. 7. FOLD THICKENING ALONG THE GASTRIC FUNDUS AND PROXIMAL BODY. CORRELATE TO EXCLUDE GASTRITIS. 8. MODERATE STOOL BURDEN.
[2020-10-28 17:15] LABS: Glucose,Whole Blood 201 mg/dL (75-99)
[2020-10-28 20:20] LABS: Glucose,Whole Blood 202 mg/dL (75-99)
--- NOTE | 2020-10-28 20:53 | P.PN ---
Subjective Progress Note Date: 10/28/20 Principal diagnosis: Pancreatic Cancer Abdominal pain and lower back pain improved. Objective - Vital Signs Vital signs: Vital Signs Temp 100.2 F H 10/28/20 20:00 Pulse 93 10/28/20 20:00 Resp 16 10/28/20 20:00 BP 141/67 10/28/20 20:00 Pulse Ox 100 10/28/20 20:00 Intake & Output 10/28/20 10/28/20 10/29/20 06:59 18:59 06:59 Intake Total 240 870 Balance 240 870 Weight 50.349 kg Intake: IV 150 Sodium Chloride 0.9% 1, 150 000 ml @ 75 mls/hr IV . [id number] JUAN Rx#:[id number] Oral 240 720 Other: Voiding Method Toilet Toilet Toilet # Voids 1 2 # Bowel Movements 0 - Exam - Constitutional General appearance: no acute distress, thin - EENT Eyes: PERRLA ENT: hard of hearing, NA/AT - Neck Neck: normal ROM - Respiratory Respiratory: bilateral: diminished - Cardiovascular Rhythm: regular - Gastrointestinal General gastrointestinal: soft, tenderness - Integumentary Integumentary: pale - Neurologic Neurologic: CNII-XII intact - Musculoskeletal Musculoskeletal: generalized weakness - Psychiatric Psychiatric: A&O x's 3, appropriate affect, intact judgment & insight - Labs CBC & Chem 7: 10/28/20 06:59 10/28/20 06:59 Labs: Abnormal Lab Results - Last 24 Hours (Table) 10/28/20 10/28/20 10/28/20 Range/Units 06:59 06:59 06:59 WBC 17.4 H (3.8-10.6) k/uL RBC 3.54 L (3.80-5.40) m/uL Hgb 10.3 L (11.4-16.0) gm/dL Hct 31.8 L (34.0-46.0) % Plt Count 582 H (150-450) k/uL Neutrophils # 14.4 H (1.3-7.7) k/uL Sodium 132 L (137-145) mmol/L Carbon Dioxide 20 L (22-30) mmol/L BUN 6 L (7-17) mg/dL Creatinine 0.47 L (0.52-1.04) mg/dL Glucose 152 H (74-99) mg/dL POC Glucose (mg/dL) (75-99) mg/dL Calcium 8.2 L (8.4-10.2) mg/dL Total Bilirubin 2.2 H (0.2-1.3) mg/dL Alkaline Phosphatase 256 H (38-126) U/L Total Protein 5.8 L (6.3-8.2) g/dL Albumin 2.8 L (3.5-5.0) g/dL CA 19-9 Antigen 48.2 H (0.0-34.9) U/mL 10/28/20 10/28/20 10/28/20 Range/Units 07:13 12:08 17:08 WBC (3.8-10.6) k/uL RBC (3.80-5.40) m/uL Hgb (11.4-16.0) gm/dL Hct (34.0-46.0) % Plt Count (150-450) k/uL Neutrophils # (1.3-7.7) k/uL Sodium (137-145) mmol/L Carbon Dioxide (22-30) mmol/L BUN (7-17) mg/dL Creatinine (0.52-1.04) mg/dL Glucose (74-99) mg/dL POC Glucose (mg/dL) 165 H 206 H 201 H (75-99) mg/dL Calcium (8.4-10.2) mg/dL Total Bilirubin (0.2-1.3) mg/dL Alkaline Phosphatase (38-126) U/L Total Protein (6.3-8.2) g/dL Albumin (3.5-5.0) g/dL CA 19-9 Antigen (0.0-34.9) U/mL 10/28/20 Range/Units 20:19 WBC (3.8-10.6) k/uL RBC (3.80-5.40) m/uL Hgb (11.4-16.0) gm/dL Hct (34.0-46.0) % Plt Count (150-450) k/uL Neutrophils # (1.3-7.7) k/uL Sodium (137-145) mmol/L Carbon Dioxide (22-30) mmol/L BUN (7-17) mg/dL Creatinine (0.52-1.04) mg/dL Glucose (74-99) mg/dL POC Glucose (mg/dL) 202 H (75-99) mg/dL Calcium (8.4-10.2) mg/dL Total Bilirubin (0.2-1.3) mg/dL Alkaline Phosphatase (38-126) U/L Total Protein (6.3-8.2) g/dL Albumin (3.5-5.0) g/dL CA 19-9 Antigen (0.0-34.9) U/mL Assessment and Plan (1) Pancreatic cancer Current Visit: Yes Status: Acute Code(s): C25.9 - MALIGNANT NEOPLASM OF PANCREAS, UNSPECIFIED SNOMED Code(s): 348667004 (2) Back ache Current Visit: Yes Status: Acute Code(s): M54.9 - DORSALGIA, UNSPECIFIED SNOMED Code(s): 353716215 (3) Abdominal pain Current Visit: Yes Status: Acute Code(s): R10.9 - UNSPECIFIED ABDOMINAL PAIN SNOMED Code(s): 73978200 (4) Hyperbilirubinemia Current Visit: No Status: Acute Code(s): E80.6 - OTHER DISORDERS OF BILIRUBIN METABOLISM SNOMED Code(s): 96458483 Plan: Review of CT without acute situation to be related to increased pain, likely related to underlying malignancy Bone scan to evaluate for mets
--- NOTE | 2020-10-28 22:50 | P.CONS ---
History of Present Illness - Reason for Consult Consult date: 10/28/20 Fever Requesting physician: Saeid Harden - Chief Complaint abd pain x few days - History of Present Illness Patient is 65-year-old -[place] female with a recent diagnosis of pancreatic head cancer for the patient was sent to the [facility] patient did have ERCP completed 721 patient did have stenting done and the biopsy was confirmed formation of adenocarcinoma patient is now presenting to the [facility] ER 2 days ago for evaluation of abdominal pain patient pain is mostly in the epigastric area described the pain to be more of a sharp in nature 7-8 out of 10 no radiations have some nausea but no vomiting patient initially did not have any fever on presentation however subsequently patient running a fever of 100.4 to 101 F patient has been started on Zosyn and vancomycin infectious disease was consulted for further management of antibiotic therapy, patient currently denies having any headache no URI symptoms no chest pain shortness of breath or cough and no urinary symptoms Review of system: Positive point has been mentioned in HPI rest of the systems are negative Past medical history : Reviewed see below Past surgical history : Reviewed see below Social history: Reviewed see below Medications: Reviewed see below GENERAL DESCRIPTION: Elderly female lying in bed, no distress. No tachypnea or accessory muscle of respiration use. HEENT: Shows Pallor , no scleral icterus. Oral mucous membrane is dry. NECK: Trachea central, no thyromegaly. LUNGS: Unlabored breathing. Clear to auscultation anteriorly. No wheeze or crackle. HEART: S1, S2, regular rate and rhythm. ABDOMEN: Soft, mild epigastric tenderness , no guarding or rigidity EXTREMITIES: No edema of feet. SKIN: No rash, no masses palpable. NEUROLOGICAL: The patient is awake, alert, oriented x3, mood and affect normal. LABS : Reviewed Assessment : 1-patient presented to hospital with abdominal pain in this patient did have a adenocarcinoma of the pancreatic head status post attempted ERCP at [facility] with the placement of his stent now presented to hospital with sepsis in this we did have fever elevated white count and abdominal pain source likely abdominal and will need to cover for the enteric gram-negative with the likely pathogen Plan: 1-we will wait for the CT abdominal pelvis to be completed 2-Zosyn 3.375 g every 8 hours to continue 3-discontinue vancomycin We will follow on clinical condition and cultures to further adjust medication if needed Thank you for this consultation we will follow the patient along with you 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, head tremor History of Any Multi-Drug Resistant Organisms: None Reported Past Surgical History: Orthopedic Surgery, Tubal Ligation Additional Past Surgical History / Comment(s): 2 pins right hip-dislocated 1975 Past Anesthesia/Blood Transfusion Reactions: No Reported Reaction Past Psychological History: Anxiety, Depression Smoking Status: Current every day smoker Past Alcohol Use History: Daily Additional Past Alcohol Use History / Comment(s): started smoking @ age 17(1971)- 1 pack a day Past Drug Use History: None Reported Additional Drug Use History / Comment(s): Quit drinking after her last discharge, 09/07/20 was drinking 3-4 beers a day - Past Family History Mother Family Medical History: Liver Disease Father Family Medical History: Cancer Additional Family Medical History / Comment(s): Lung and liver cancer. Medications and Allergies Home Medications Medication Instructions Recorded Confirmed Type amLODIPine BESYLATE/BENAZEPRIL 1 cap PO DAILY 09/25/13 10/26/20 History [amLODIPine BESYLATE/BENAZEPRIL 10-40 MG] Gabapentin [Neurontin] 300 mg PO BID PRN 12/06/16 10/26/20 History Albuterol Sulfate [Albuterol 2 puff INHALATION RT-Q4H PRN 09/04/20 10/26/20 History Sulfate Hfa] Omeprazole 40 mg PO DAILY 09/24/20 10/26/20 History traMADol HCL [Ultram] 1 tab PO BID PRN 10/26/20 10/26/20 History Allergies Allergy/AdvReac Type Severity Reaction Status Date / Time erythromycin base AdvReac Nausea Verified 10/26/20 18:33 [Erythromycin Base] Physical Exam Vitals: Vital Signs Temp Pulse Resp BP Pulse Ox 10/28/20 10:22 98.1 F 10/28/20 08:04 98.6 F 10/28/20 08:00 16 10/28/20 05:32 101.1 F H 10/28/20 04:36 103.1 F H 96 16 156/69 100 10/27/20 21:16 98.9 F 86 10/27/20 19:42 100.4 F H 100 16 184/82 99 10/27/20 19:40 16 10/27/20 11:50 99.2 F 79 16 149/65 100 Intake and Output 10/27/20 10/28/20 10/28/20 22:59 06:59 14:59 Intake Total 240 Balance 240 Intake: Oral 240 Other: Voiding Method Toilet Toilet # Voids 1 # Bowel Movements 0 Results CBC & Chem 7: 10/28/20 06:59 10/28/20 06:59 Labs: Abnormal Lab Results - Last 24 Hours (Table) 10/26/20 10/26/20 10/27/20 Range/Units 19:27 19:27 11:48 WBC (3.8-10.6) k/uL RBC (3.80-5.40) m/uL Hgb (11.4-16.0) gm/dL Hct (34.0-46.0) % Plt Count (150-450) k/uL Neutrophils # (1.3-7.7) k/uL Sodium (137-145) mmol/L Carbon Dioxide (22-30) mmol/L BUN (7-17) mg/dL Creatinine (0.52-1.04) mg/dL Glucose (74-99) mg/dL POC Glucose (mg/dL) 216 H (75-99) mg/dL Osmolality 270 L (280-301) mosm/kg Calcium (8.4-10.2) mg/dL Total Bilirubin (0.2-1.3) mg/dL Alkaline Phosphatase (38-126) U/L Total Protein (6.3-8.2) g/dL Albumin (3.5-5.0) g/dL CA 19-9 Antigen 69.5 H (0.0-34.9) U/mL 10/27/20 10/27/20 10/28/20 Range/Units 17:27 20:27 06:59 WBC (3.8-10.6) k/uL RBC (3.80-5.40) m/uL Hgb (11.4-16.0) gm/dL Hct (34.0-46.0) % Plt Count (150-450) k/uL Neutrophils # (1.3-7.7) k/uL Sodium 132 L (137-145) mmol/L Carbon Dioxide 20 L (22-30) mmol/L BUN 6 L (7-17) mg/dL Creatinine 0.47 L (0.52-1.04) mg/dL Glucose 152 H (74-99) mg/dL POC Glucose (mg/dL) 180 H 156 H (75-99) mg/dL Osmolality (280-301) mosm/kg Calcium 8.2 L (8.4-10.2) mg/dL Total Bilirubin 2.2 H (0.2-1.3) mg/dL Alkaline Phosphatase 256 H (38-126) U/L Total Protein 5.8 L (6.3-8.2) g/dL Albumin 2.8 L (3.5-5.0) g/dL CA 19-9 Antigen (0.0-34.9) U/mL 10/28/20 10/28/20 Range/Units 06:59 07:13 WBC 17.4 H (3.8-10.6) k/uL RBC 3.54 L (3.80-5.40) m/uL Hgb 10.3 L (11.4-16.0) gm/dL Hct 31.8 L (34.0-46.0) % Plt Count 582 H (150-450) k/uL Neutrophils # 14.4 H (1.3-7.7) k/uL Sodium (137-145) mmol/L Carbon Dioxide (22-30) mmol/L BUN (7-17) mg/dL Creatinine (0.52-1.04) mg/dL Glucose (74-99) mg/dL POC Glucose (mg/dL) 165 H (75-99) mg/dL Osmolality (280-301) mosm/kg Calcium (8.4-10.2) mg/dL Total Bilirubin (0.2-1.3) mg/dL Alkaline Phosphatase (38-126) U/L Total Protein (6.3-8.2) g/dL Albumin (3.5-5.0) g/dL CA 19-9 Antigen (0.0-34.9) U/mL
[2020-10-29] MEDS: ACETAMINOPHEN TAB 325 MG TAB PO PRN (01:01)
--- NOTE | 2020-10-29 02:05 | P.PN ---
Subjective Progress Note Date: 10/28/20 This is a pleasant 65-year-old female came in with severe abdominal pain diffuse abdominal pain sharp 10 x 10 nonradiating. Patient is also pending a back pain because of which patient had an x-ray of the back which showed spondylolisthesis of the lumbar spine. and effusions patient does have leukocytosis. Patient was recently diagnosed with pancreatic cancer in month of September and patient is undergoing further workup before chemotherapy. Patient has a PET scan scheduled her in 10 days. Patient denied any nausea vomiting diarrhea. Patient denied any constipation either. Patient was started on morphine and Dilaudid for pain. Patient will be started on long-acting opiate for baseline p ain control. Patient will be continued on as needed Dilaudid. Patient is also found to be hyponatremic, further workup for hyponatremia was ordered. 10/28/2020 Patient seen and evaluated in follow up this morning and CTabdomen ordered and patient had nausea with vomiting noted after the contrast, but vomitus was bilious in nature. Patient has back pain and pain management consulted. ONcology and infectious disease following. wbc elevated at 17.4 and hemoglobin stable. Sodium slightly improved at 132. Patient was tolerating diet. Patient continues to be febrile and started on IV antibiotics and infectious disease following. Review of systems: Constitutional: reports of fatigue, fever, or chills Cardiovascular: No reports of chest pain or palpitations Respiratory: No reports of shortness of breath or cough GI: No reports of nausea, vomiting, or diarrhea, had an episode of vomiting a fter CT contrast ingested : No reports of dysuria or retention Neurovascular:reports generalized weakness All medications have been reviewed PHYSICAL EXAMINATION: GENERAL: The patient is alert and oriented x3, not in any acute distress. Thin built HEENT: Pupils are round and equally reacting to light. EOMI. No scleral icterus. No conjunctival pallor. Normocephalic, atraumatic. No pharyngeal erythema. No thyromegaly. CARDIOVASCULAR: S1 and S2 present. No murmurs, rubs, or gallops. PULMONARY: Chest is clear to auscultation, no wheezing or crackles. ABDOMEN: Soft, significant diffuse tenderness mostly in the epigastric area, somewhat improved today, nondistended, normoactive bowel sounds. No palpable organomegaly. MUSCULOSKELETAL: No joint swelling or deformity. EXTREMITIES: No cyanosis, clubbing, or pedal edema. NEUROLOGICAL: Gross neurological examination did not reveal any focal deficits. SKIN: No rashes. Assessment and plan: -Severe abdominal pain: Secondary to pancreatic cancer, patient will be started on long-acting opiate, fentanyl patch 25 g and will continue with the when necessary Dilaudid pain management will be consulted patient may benefit from celiac nerve block -sepsis, with associated fevers and elevated WBC, present on admission. Started on IV antibiotics with infectious disease following -Hyponatremia mostly hypervolemic further workup will be ordered including TSH, serum osmolality urine osmolality, urine random sodium serum random creatinine, continued on NS at 75ml/hr -pneumobilia around bile duct stent, consult to general surgery -Type 2 diabetes mellitus, uncontrolled with hyperglycemia; continue sliding scale and accuchecks. -Hypertension -DVT prophylaxis: Lovenox -GI prophylaxis: protonix -full code plan: Continue current medications. repeat labs ordered including tsh and osmolality. Patient had CT abdomen to further assess for metastasis and showed pneumobilia at the bile duct stent that was recently placed. Nuclear bone scan ordered and pending. Pain management following patient along with oncology and infectious disease. Prognosis is guarded. Patient continues to be febrile as well. Objective - Vital Signs Vital signs: Vital Signs Temp 98.6 F 10/28/20 08:04 Pulse 96 10/28/20 04:36 Resp 16 10/28/20 08:00 BP 156/69 10/28/20 04:36 Pulse Ox 100 10/28/20 04:36 Intake & Output 10/27/20 10/28/20 10/28/20 18:59 06:59 18:59 Intake Total 240 Balance 240 Intake: Oral 240 Other: Voiding Method Toilet Toilet # Voids 2 1 # Bowel Movements 0 - Labs CBC & Chem 7: 10/28/20 06:59 10/28/20 06:59 Labs: Abnormal Lab Results - Last 24 Hours (Table) 10/26/20 10/26/20 10/27/20 Range/Units 19:27 19:27 11:48 WBC (3.8-10.6) k/uL RBC (3.80-5.40) m/uL Hgb (11.4-16.0) gm/dL Hct (34.0-46.0) % Plt Count (150-450) k/uL Neutrophils # (1.3-7.7) k/uL Sodium (137-145) mmol/L Carbon Dioxide (22-30) mmol/L BUN (7-17) mg/dL Creatinine (0.52-1.04) mg/dL Glucose (74-99) mg/dL POC Glucose (mg/dL) 216 H (75-99) mg/dL Osmolality 270 L (280-301) mosm/kg Calcium (8.4-10.2) mg/dL Total Bilirubin (0.2-1.3) mg/dL Alkaline Phosphatase (38-126) U/L Total Protein (6.3-8.2) g/dL Albumin (3.5-5.0) g/dL CA 19-9 Antigen 69.5 H (0.0-34.9) U/mL 10/27/20 10/27/20 10/28/20 Range/Units 17:27 20:27 06:59 WBC (3.8-10.6) k/uL RBC (3.80-5.40) m/uL Hgb (11.4-16.0) gm/dL Hct (34.0-46.0) % Plt Count (150-450) k/uL Neutrophils # (1.3-7.7) k/uL Sodium 132 L (137-145) mmol/L Carbon Dioxide 20 L (22-30) mmol/L BUN 6 L (7-17) mg/dL Creatinine 0.47 L (0.52-1.04) mg/dL Glucose 152 H (74-99) mg/dL POC Glucose (mg/dL) 180 H 156 H (75-99) mg/dL Osmolality (280-301) mosm/kg Calcium 8.2 L (8.4-10.2) mg/dL Total Bilirubin 2.2 H (0.2-1.3) mg/dL Alkaline Phosphatase 256 H (38-126) U/L Total Protein 5.8 L (6.3-8.2) g/dL Albumin 2.8 L (3.5-5.0) g/dL CA 19-9 Antigen (0.0-34.9) U/mL 10/28/20 10/28/20 Range/Units 06:59 07:13 WBC 17.4 H (3.8-10.6) k/uL RBC 3.54 L (3.80-5.40) m/uL Hgb 10.3 L (11.4-16.0) gm/dL Hct 31.8 L (34.0-46.0) % Plt Count 582 H (150-450) k/uL Neutrophils # 14.4 H (1.3-7.7) k/uL Sodium (137-145) mmol/L Carbon Dioxide (22-30) mmol/L BUN (7-17) mg/dL Creatinine (0.52-1.04) mg/dL Glucose (74-99) mg/dL POC Glucose (mg/dL) 165 H (75-99) mg/dL Osmolality (280-301) mosm/kg Calcium (8.4-10.2) mg/dL Total Bilirubin (0.2-1.3) mg/dL Alkaline Phosphatase (38-126) U/L Total Protein (6.3-8.2) g/dL Albumin (3.5-5.0) g/dL CA 19-9 Antigen (0.0-34.9) U/mL
[2020-10-29] MEDS: SODIUM CHLORIDE 0.9% 1,000 ML IV SCH ×2 (04:25→14:22)
[2020-10-29 05:47] LABS: Basophils % (A) 0 %; Eosinophils # (A) 0.1 k/uL (0-0.7); Eosinophils % (A) 1 %; HCT 25.8 % (34.0-46.0); Lymphocytes # (A) 1.4 k/uL (1.0-4.8); Lymphocytes % (A) 10 %; MCH 29.4 pg (25.0-35.0); MCHC 33.9 g/dL (31.0-37.0); MCV 86.8 fL (80.0-100.0); Mean Platelet Volume 8.2; Monocytes # (A) 0.8 k/uL (0-1.0); Monocytes % (A) 6 %; Neutrophils # (A) 11.2 k/uL (1.3-7.7); Neutrophils % (A) 82 %; Platelet Count 457 k/uL (150-450); Poikilocytosis Slight; RBC 2.98 m/uL (3.80-5.40); RDW 15.2 % (11.5-15.5); WBC 13.7 k/uL (3.8-10.6)
[2020-10-29 05:52] LABS: HGB 8.8 gm/dL (11.4-16.0)
[2020-10-29 05:58] LABS: African American GFR (CKD) >90 (>60 ml/min/1.73 sqM); Anion Gap 6 mmol/L; Blood Urea Nitrogen 6 mg/dL (7-17); Calcium 7.8 mg/dL (8.4-10.2); Carbon Dioxide 20 mmol/L (22-30); Chloride 107 mmol/L (98-107); Glucose 127 mg/dL (74-99); Non-African American GFR(CKD) >90 (>60 ml/min/1.73 sqM); Potassium 2.9 mmol/L (3.5-5.1); Sodium 133 mmol/L (137-145)
[2020-10-29 07:00] LABS: Glucose,Whole Blood 135 mg/dL (75-99)
[2020-10-29] MEDS: ENOXAPARIN 40 MG/0.4 ML SYRINGE SQ SCH (07:36)
[2020-10-29] MEDS: VANCOMYCIN 1,000 MG in SODIUM CHLORIDE 0.9% 250 ML IVPB SCH (07:41)
[2020-10-29] MEDS: lisinopriL 20 MG TAB PO SCH (07:41)
[2020-10-29] MEDS: amLODIPine 10 MG TAB PO SCH (07:41)
[2020-10-29] MEDS: PANTOPRAZOLE 40 MG TABLET PO SCH (07:41)
[2020-10-29] MEDS: PIPERACILLIN-TAZOBACTAM 3.375 GM in SODIUM CHLORIDE 0.9% 100 ML IVPB SCH ×3 (09:43→23:44)
[2020-10-29] MEDS ORDERED: Potassium Replacement Protocol 1 EACH MISC MISCELLANE PRN (09:44)
[2020-10-29] MEDS: POTASSIUM CHLORIDE ER 20 MEQ TAB.ER PO SCH ×2 (09:59→13:06)
[2020-10-29] MEDS ORDERED: POTASSIUM CHLORIDE 10 MEQ in WATER FOR INJECTION 1 100ML.BAG IVPB SCH (10:00)
[2020-10-29] MEDS: HYDROmorphone 0.5 MG/0.5 ML SYRINGE IVP PRN (10:03)
[2020-10-29 11:36] LABS: Albumin 2.1 g/dL (3.5-5.0); Albumin/Globulin Ratio 0.8; Bilirubin,Unconjugated 0.4 mg/dL (0.0-1.1); Globulin 2.5 g/dL; Magnesium 1.5 mg/dL (1.6-2.3); Total Bilirubin 1.6 mg/dL (0.2-1.3); Total Protein 4.6 g/dL (6.3-8.2)
[2020-10-29 11:44] LABS: Glucose,Whole Blood 243 mg/dL (75-99)
--- NOTE | 2020-10-29 13:55 | P.PN ---
Subjective Progress Note Date: 10/29/20 Principal diagnosis: Pancreatic Cancer Febrile within 24 hours, await hepatic panel, monitor for infectious from stent. Once fever is improved then pain management for celiac plexus block. Objective - Vital Signs Vital signs: Vital Signs Temp 98.2 F 10/29/20 11:14 Pulse 70 10/29/20 11:14 Resp 18 10/29/20 11:14 BP 120/75 10/29/20 11:14 Pulse Ox 100 10/29/20 11:14 Intake & Output 10/28/20 10/29/20 10/29/20 18:59 06:59 18:59 Intake Total 870 Balance 870 Weight 50.349 kg Intake: IV 150 Sodium Chloride 0.9% 1, 150 000 ml @ 75 mls/hr IV . [id number] [facility] Rx#:[id number] Oral 720 Other: Voiding Method Toilet Toilet Toilet # Voids 2 2 - Exam - Constitutional General appearance: no acute distress, thin - EENT Eyes: PERRLA ENT: hard of hearing, NA/AT - Neck Neck: normal ROM - Respiratory Respiratory: bilateral: diminished - Cardiovascular Rhythm: regular - Gastrointestinal General gastrointestinal: soft, tenderness - Integumentary Integumentary: pale - Neurologic Neurologic: CNII-XII intact - Musculoskeletal Musculoskeletal: generalized weakness - Psychiatric Psychiatric: A&O x's 3, appropriate affect, intact judgment & insight - Labs CBC & Chem 7: 10/29/20 04:54 10/29/20 04:54 Labs: Abnormal Lab Results - Last 24 Hours (Table) 10/28/20 10/28/20 10/29/20 Range/Units 17:08 20:19 04:54 WBC 13.7 H (3.8-10.6) k/uL RBC 2.98 L (3.80-5.40) m/uL Hgb 8.8 L D (11.4-16.0) gm/dL Hct 25.8 L (34.0-46.0) % Plt Count 457 H (150-450) k/uL Neutrophils # 11.2 H (1.3-7.7) k/uL Sodium (137-145) mmol/L Potassium (3.5-5.1) mmol/L Carbon Dioxide (22-30) mmol/L BUN (7-17) mg/dL Creatinine (0.52-1.04) mg/dL Glucose (74-99) mg/dL POC Glucose (mg/dL) 201 H 202 H (75-99) mg/dL Calcium (8.4-10.2) mg/dL Magnesium (1.6-2.3) mg/dL Total Bilirubin (0.2-1.3) mg/dL Alkaline Phosphatase (38-126) U/L Total Protein (6.3-8.2) g/dL Albumin (3.5-5.0) g/dL 10/29/20 10/29/20 10/29/20 Range/Units 04:54 04:54 06:59 WBC (3.8-10.6) k/uL RBC (3.80-5.40) m/uL Hgb (11.4-16.0) gm/dL Hct (34.0-46.0) % Plt Count (150-450) k/uL Neutrophils # (1.3-7.7) k/uL Sodium 133 L (137-145) mmol/L Potassium 2.9 L (3.5-5.1) mmol/L Carbon Dioxide 20 L (22-30) mmol/L BUN 6 L (7-17) mg/dL Creatinine 0.38 L (0.52-1.04) mg/dL Glucose 127 H (74-99) mg/dL POC Glucose (mg/dL) 135 H (75-99) mg/dL Calcium 7.8 L (8.4-10.2) mg/dL Magnesium 1.5 L (1.6-2.3) mg/dL Total Bilirubin 1.6 H (0.2-1.3) mg/dL Alkaline Phosphatase 207 H (38-126) U/L Total Protein 4.6 L (6.3-8.2) g/dL Albumin 2.1 L (3.5-5.0) g/dL 10/29/20 Range/Units 11:42 WBC (3.8-10.6) k/uL RBC (3.80-5.40) m/uL Hgb (11.4-16.0) gm/dL Hct (34.0-46.0) % Plt Count (150-450) k/uL Neutrophils # (1.3-7.7) k/uL Sodium (137-145) mmol/L Potassium (3.5-5.1) mmol/L Carbon Dioxide (22-30) mmol/L BUN (7-17) mg/dL Creatinine (0.52-1.04) mg/dL Glucose (74-99) mg/dL POC Glucose (mg/dL) 243 H (75-99) mg/dL Calcium (8.4-10.2) mg/dL Magnesium (1.6-2.3) mg/dL Total Bilirubin (0.2-1.3) mg/dL Alkaline Phosphatase (38-126) U/L Total Protein (6.3-8.2) g/dL Albumin (3.5-5.0) g/dL Microbiology - Last 24 Hours (Table) 10/28/20 06:59 Blood Culture - Preliminary Blood No Growth after 24 hours 10/28/20 06:59 Blood Culture - Preliminary Blood No Growth after 24 hours Assessment and Plan (1) Pancreatic cancer Current Visit: Yes Status: Acute Code(s): C25.9 - MALIGNANT NEOPLASM OF PANCREAS, UNSPECIFIED SNOMED Code(s): 977814771 (2) Back ache Current Visit: Yes Status: Acute Code(s): M54.9 - DORSALGIA, UNSPECIFIED SNOMED Code(s): 476364932 (3) Abdominal pain Current Visit: Yes Status: Acute Code(s): R10.9 - UNSPECIFIED ABDOMINAL PAIN SNOMED Code(s): 38182963 (4) Hyperbilirubinemia Current Visit: No Status: Acute Code(s): E80.6 - OTHER DISORDERS OF BILIRUBIN METABOLISM SNOMED Code(s): 59087231 Plan: Review of CT without acute situation to be related to increased pain, likely related to underlying malignancy Bone scan to evaluate for mets ID following for fevers, Infectious source ?biliary stent Continue Antibiotics Increased Fentanyl and discontinued all except one medication for breakthrough. Bowel regimen to continue. Physician Attest: I have completed the full history and physical and agree with above dictation, dictated as a ascribe
[2020-10-29] MEDS: MAGNESIUM SULFATE-D5W PMX 1 GM in DEXTROSE/WATER 1 100ML.BAG IVPB SCH ×2 (14:52→15:55)
--- NOTE | 2020-10-29 15:40 | NM ---
EXAMINATION TYPE: NM bone scan whole body DATE OF EXAM: 10/29/2020 COMPARISON: CT 10/28/2020 HISTORY: Pancreatic carcinoma, low back and hip pain Delayed whole-body scanning was performed following the injection of 23.1 mCi Tc 99m MDP. Images acq uired 4 hours post injection. FINDINGS: Uptake at the lumbosacral junction likely is due to degenerative disc change. Uptake within the hips likely due to underlying osteoarthritis. Soft tissue uptake is normal. No abnormal uptake to suggest metastatic disease. IMPRESSION: Degenerative changes. Metastatic disease is not suspected.
--- NOTE | 2020-10-29 15:43 | P.GSCN ---
History of Present Illness Consult date: 10/29/20 History of present illness: CHIEF COMPLAINT: Abdominal pain HISTORY OF PRESENT ILLNESS: This is a 65-year-old female with a known history of pancreatic cancer that was recently diagnosed within the last couple months. Patient had been at [facility] and had ERCP completed in September 2020. Patient had biopsy that confirmed adenocarcinoma. Patient presents to the hospital now with complaints of abdominal pain for the last 2 days in the middle of her abdomen. She reports the pain is sharp. The pain does not radiate. She denies any vomiting. She does have nausea. She also has had evidence of fevers on admission. White count was elevated as well. She had a computed tomography scan of the abdomen and pelvis that had shown placement of metal stent across the bile duct and interiorly into the gastric antrum with secondary pneumobilia. Surgical service was consult in regards to the pneumobilia, abdominal pain and fever. Patient seen and examined with Dr. davis. PAST MEDICAL HISTORY: See list. PAST SURGICAL HISTORY: See list. MEDICATIONS: See list. ALLERGIES: See list. SOCIAL HISTORY: No illicit drug use. REVIEW OF SYSTEMS: CONSTITUTIONAL: Denies fever or chills. HEENT: Denies blurred vision, vision changes, or eye pain. Denies hemoptysis CARDIOVASCULAR: Denies chest pain or pressure. RESPIRATORY: No shortness of breath. GASTROINTESTINAL: See HPI for pertinent findings HEMATOLOGIC: Denies bleeding disorders. GENITOURINARY: Denies any blood in urine or increased urinary frequency. SKIN: Denies pruitis. Denies rash. PHYSICAL EXAM: VITAL SIGNS: Reviewed GENERAL: Well-developed in no acute distress. HEENT: No sclera icterus. Extraocular movements grossly intact. Moist buccal mucosa. Head is atraumatic, normocephalic. No nasal drainage. ABDOMEN: Soft. Nondistended. Tenderness with patient the mid abdomen NEUROLOGIC: Alert and oriented. Cranial nerves II through XII grossly intact. LABORATORY DATA: WBC 17.4 down to 13.7 hemoglobin 8.8 platelets 457 sodium 133 potassium 2.9 creatinine 0.38 glucose 243 Magnesium 1.5 Total bilirubin is down from 2.4-1.6 AST 31 ALT 18 alk phos 207 CA-19-9 48.2 IMAGING: Computed tomography scan abdomen and pelvis poorly defined, partially calcified pancreatic head mass measuring approximately 3.3 x 2.8 cm. Interval placement of metal stent across the bile duct and anteriorly into the gastric antrum. Secondary pneumobilia. Mild diffuse heterogenous liver enhancement may be related to the face of imaging. Subtle 5 mm hypodense lesion left liver lobe. Attention on follow-up to exclude a small hepatic metastasis. Slight flattening of the anterior margin of the upper SMV likely extrinsic mass effect. There is 180 of anterior contact at the upper SMV. Otherwise no vascular encasement. 1.3 cm peripancreatic lymph node. Full thickening along the gastric fundus and proximal body. Correlate to exclude gastritis. Moderate stool burden. ASSESSMENT: 1. Abdominal pain 2. Pneumobilia noted on CAT scan secondary to the bile duct stent. And can be an expected finding 3. Fever with leukocytosis 4. History of pancreatic cancer PLAN: -No surgical intervention planned -Patient may require transfer back to [facility] where she had the ERCP and bile duct stent placed -Continue supportive care -Continue antibiotic per ID -Continue supportive care Thank you for this consultation Physician Warehouse Delivery Driver note has been reviewed by physician. Signing provider agrees with the documented findings, assessment, and plan of care. 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, head tremor History of Any Multi-Drug Resistant Organisms: None Reported Past Surgical History: Orthopedic Surgery, Tubal Ligation Additional Past Surgical History / Comment(s): 2 pins right hip-dislocated 1975 Past Anesthesia/Blood Transfusion Reactions: No Reported Reaction Past Psychological History: Anxiety, Depression Smoking Status: Current every day smoker Past Alcohol Use History: Daily Additional Past Alcohol Use History / Comment(s): started smoking @ age 17(1971)- 1 pack a day Past Drug Use History: None Reported Additional Drug Use History / Comment(s): Quit drinking after her last discharge, 09/07/20 was drinking 3-4 beers a day - Past Family History Mother Family Medical History: Liver Disease Father Family Medical History: Cancer Additional Family Medical History / Comment(s): Lung and liver cancer. Medications and Allergies Home Medications Medication Instructions Recorded Confirmed Type amLODIPine BESYLATE/BENAZEPRIL 1 cap PO DAILY 09/25/13 10/26/20 History [amLODIPine BESYLATE/BENAZEPRIL 10-40 MG] Gabapentin [Neurontin] 300 mg PO BID PRN 12/06/16 10/26/20 History Albuterol Sulfate [Albuterol 2 puff INHALATION RT-Q4H PRN 09/04/20 10/26/20 History Sulfate Hfa] Omeprazole 40 mg PO DAILY 09/24/20 10/26/20 History traMADol HCL [Ultram] 1 tab PO BID PRN 10/26/20 10/26/20 History Allergies Allergy/AdvReac Type Severity Reaction Status Date / Time erythromycin base AdvReac Nausea Verified 10/26/20 18:33 [Erythromycin Base] Surgical - Exam Vital Signs Temp Pulse Resp BP Pulse Ox 98.8 F 103 H 18 159/89 100 10/26/20 18:31 10/26/20 18:31 10/26/20 18:31 10/26/20 18:31 10/26/20 18:31 Results - Labs 10/29/20 04:54 10/29/20 04:54 Abnormal Lab Results - Last 24 Hours (Table) 10/28/20 10/28/20 10/29/20 Range/Units 17:08 20:19 04:54 WBC 13.7 H (3.8-10.6) k/uL RBC 2.98 L (3.80-5.40) m/uL Hgb 8.8 L D (11.4-16.0) gm/dL Hct 25.8 L (34.0-46.0) % Plt Count 457 H (150-450) k/uL Neutrophils # 11.2 H (1.3-7.7) k/uL Sodium (137-145) mmol/L Potassium (3.5-5.1) mmol/L Carbon Dioxide (22-30) mmol/L BUN (7-17) mg/dL Creatinine (0.52-1.04) mg/dL Glucose (74-99) mg/dL POC Glucose (mg/dL) 201 H 202 H (75-99) mg/dL Calcium (8.4-10.2) mg/dL Magnesium (1.6-2.3) mg/dL Total Bilirubin (0.2-1.3) mg/dL Alkaline Phosphatase (38-126) U/L Total Protein (6.3-8.2) g/dL Albumin (3.5-5.0) g/dL 10/29/20 10/29/20 10/29/20 Range/Units 04:54 04:54 06:59 WBC (3.8-10.6) k/uL RBC (3.80-5.40) m/uL Hgb (11.4-16.0) gm/dL Hct (34.0-46.0) % Plt Count (150-450) k/uL Neutrophils # (1.3-7.7) k/uL Sodium 133 L (137-145) mmol/L Potassium 2.9 L (3.5-5.1) mmol/L Carbon Dioxide 20 L (22-30) mmol/L BUN 6 L (7-17) mg/dL Creatinine 0.38 L (0.52-1.04) mg/dL Glucose 127 H (74-99) mg/dL POC Glucose (mg/dL) 135 H (75-99) mg/dL Calcium 7.8 L (8.4-10.2) mg/dL Magnesium 1.5 L (1.6-2.3) mg/dL Total Bilirubin 1.6 H (0.2-1.3) mg/dL Alkaline Phosphatase 207 H (38-126) U/L Total Protein 4.6 L (6.3-8.2) g/dL Albumin 2.1 L (3.5-5.0) g/dL 10/29/20 Range/Units 11:42 WBC (3.8-10.6) k/uL RBC (3.80-5.40) m/uL Hgb (11.4-16.0) gm/dL Hct (34.0-46.0) % Plt Count (150-450) k/uL Neutrophils # (1.3-7.7) k/uL Sodium (137-145) mmol/L Potassium (3.5-5.1) mmol/L Carbon Dioxide (22-30) mmol/L BUN (7-17) mg/dL Creatinine (0.52-1.04) mg/dL Glucose (74-99) mg/dL POC Glucose (mg/dL) 243 H (75-99) mg/dL Calcium (8.4-10.2) mg/dL Magnesium (1.6-2.3) mg/dL Total Bilirubin (0.2-1.3) mg/dL Alkaline Phosphatase (38-126) U/L Total Protein (6.3-8.2) g/dL Albumin (3.5-5.0) g/dL Microbiology - Last 24 Hours (Table) 10/28/20 06:59 Blood Culture - Preliminary Blood No Growth after 24 hours 10/28/20 06:59 Blood Culture - Preliminary Blood No Growth after 24 hours Diabetes panel 10/29/20 10/29/20 Range/Units 04:54 04:54 Sodium 133 L (137-145) mmol/L Potassium 2.9 L (3.5-5.1) mmol/L Chloride 107 (98-107) mmol/L Carbon Dioxide 20 L (22-30) mmol/L BUN 6 L (7-17) mg/dL Creatinine 0.38 L (0.52-1.04) mg/dL Glucose 127 H (74-99) mg/dL Calcium 7.8 L (8.4-10.2) mg/dL AST 31 (14-36) U/L ALT 18 (4-34) U/L Alkaline Phosphatase 207 H (38-126) U/L Total Protein 4.6 L (6.3-8.2) g/dL Albumin 2.1 L (3.5-5.0) g/dL Thyroid panel 10/29/20 Range/Units 04:54 TSH 1.010 (0.465-4.680) mIU/L Calcium panel 10/29/20 10/29/20 Range/Units 04:54 04:54 Calcium 7.8 L (8.4-10.2) mg/dL Albumin 2.1 L (3.5-5.0) g/dL Pituitary panel 10/29/20 Range/Units 04:54 Sodium 133 L (137-145) mmol/L Potassium 2.9 L (3.5-5.1) mmol/L Chloride 107 (98-107) mmol/L Carbon Dioxide 20 L (22-30) mmol/L BUN 6 L (7-17) mg/dL Creatinine 0.38 L (0.52-1.04) mg/dL Glucose 127 H (74-99) mg/dL Calcium 7.8 L (8.4-10.2) mg/dL TSH 1.010 (0.465-4.680) mIU/L Adrenal panel 10/29/20 10/29/20 Range/Units 04:54 04:54 Sodium 133 L (137-145) mmol/L Potassium 2.9 L (3.5-5.1) mmol/L Chloride 107 (98-107) mmol/L Carbon Dioxide 20 L (22-30) mmol/L BUN 6 L (7-17) mg/dL Creatinine 0.38 L (0.52-1.04) mg/dL Glucose 127 H (74-99) mg/dL Calcium 7.8 L (8.4-10.2) mg/dL Total Bilirubin 1.6 H (0.2-1.3) mg/dL AST 31 (14-36) U/L ALT 18 (4-34) U/L Alkaline Phosphatase 207 H (38-126) U/L Total Protein 4.6 L (6.3-8.2) g/dL Albumin 2.1 L (3.5-5.0) g/dL
--- NOTE | 2020-10-29 16:49 | P.PN ---
Subjective Progress Note Date: 10/29/20 This is a pleasant 65-year-old female came in with severe abdominal pain diffuse abdominal pain sharp 10 x 10 nonradiating. Patient is also pending a back pain because of which patient had an x-ray of the back which showed spondylolisthesis of the lumbar spine. and effusions patient does have leukocytosis. Patient was recently diagnosed with pancreatic cancer in month of September and patient is undergoing further workup before chemotherapy. Patient has a PET scan scheduled her in 10 days. Patient denied any nausea vomiting diarrhea. Patient denied any constipation either. Patient was started on morphine and Dilaudid for pain. Patient will be started on long-acting opiate for baseline p ain control. Patient will be continued on as needed Dilaudid. Patient is also found to be hyponatremic, further workup for hyponatremia was ordered. 10/28/2020 Patient seen and evaluated in follow up this morning and CTabdomen ordered and patient had nausea with vomiting noted after the contrast, but vomitus was bilious in nature. Patient has back pain and pain management consulted. ONcology and infectious disease following. wbc elevated at 17.4 and hemoglobin stable. Sodium slightly improved at 132. Patient was tolerating diet. Patient continues to be febrile and started on IV antibiotics and infectious disease following. 10/29/2020 Patient is seen in follow-up this morning continues to have abdominal discomfort and decreased appetite that she states comes and goes although no reports of nausea or vomiting noted. Patient continued to be febrile throughout the night and currently afebrile this morning and will continue to monitor closely. Patient underwent bone scan which was negative for metastasis and did have surgery consult and evaluate the patient for possible pneumobilia around bile duct stent and patient would likely need to return to [facility] where she had the stent placed for further treatment. Patient is refusing any further treatment at [facility] and would like to continue with care here along with oncology here as well. Oncology is following. Patient is requesting to go home. White blood count trending down at 13.7 and hemoglobin is stable at 8.8 with no active bleeding noted. Sodium is 133 and potassium is 2.9 and will replace per protocol. Magnesium also 1.5 and will replace as well and repeat a.m. labs. Review of systems: Constitutional: reports of fatigue, intermittent fever throughout the night, denies chills Cardiovascular: No reports of chest pain or palpitations Respiratory: No reports of shortness of breath or cough GI: No reports of nausea, vomiting, or diarrhea, has intermittent abdominal discomfort : No reports of dysuria or retention Neurovascular:reports generalized weakness All medications have been reviewed PHYSICAL EXAMINATION: GENERAL: The patient is alert and oriented x3, not in any acute distress. Thin built HEENT: Pupils are round and equally reacting to light. EOMI. No scleral icterus. No conjunctival pallor. Normocephalic, atraumatic. No pharyngeal erythema. No thyromegaly. CARDIOVASCULAR: S1 and S2 present. No murmurs, rubs, or gallops. PULMONARY: Chest is clear to auscultation, no wheezing or crackles. ABDOMEN: Soft, significant diffuse tenderness mostly in the epigastric area, somewhat improved today, nondistended, normoactive bowel sounds. No palpable organomegaly. MUSCULOSKELETAL: No joint swelling or deformity. EXTREMITIES: No cyanosis, clubbing, or pedal edema. NEUROLOGICAL: Gross neurological examination did not reveal any focal deficits. SKIN: No rashes. Assessment and plan: -Severe abdominal pain: Secondary to pancreatic cancer, patient will be started on long-acting opiate, fentanyl patch 25 g and will continue with the when necessary Dilaudid pain management will be consulted patient may benefit from celiac nerve block, pain management evaluated the patient and recommending outpatient follow-up once infectious process and current situation is improved -sepsis, with associated fevers and elevated WBC, present on admission. Started on IV antibiotics with infectious disease following continued fevers throughout the night. -Hyponatremia mostly hypervolemic further workup will be ordered including TSH, serum osmolality urine osmolality, urine random sodium serum random creatinine, continued on NS at 75ml/hr, improved and will continue gentle IV hydration as poor oral intake continues along with abdominal discomfort -Hypokalemia currently 2.9 and replacing per protocol and will repeat a.m. labs -Hypomagnesemia -pneumobilia around bile duct stent, general surgery evaluated the patient recommending no surgical intervention at this time and would need to follow with Homer Brewster who placed a stent -Type 2 diabetes mellitus, uncontrolled with hyperglycemia; continue sliding scale and accuchecks. -Hypertension -DVT prophylaxis: Lovenox -GI prophylaxis: protonix -full code plan: Continue current medications. Potassium severely low at 2.9 along with magnesium 1.5 and will replace per protocol and repeat a.m. labs. TSH within normal limits. Patient had CT abdomen to further assess for metastasis and showed pneumobilia at the bile duct stent that was recently placed at [facility] in general surgery consulted and evaluated the patient recommending outpatient follow-up with Homer Brewster who placed the stent. Nuclear bone scan done today negative for metastasis with no increased uptake noted. Oncology is following. Prognosis is guarded. Patient continues to be febrile throughout the night and currently afebrile throughout the day and will continue to monitor closely. White blood count trending down and will repeat labs. Patient is requesting to go home. Objective - Vital Signs Vital signs: Vital Signs Temp 98.2 F 10/29/20 05:00 Pulse 77 10/29/20 05:00 Resp 16 10/29/20 08:00 BP 148/77 10/29/20 05:00 Pulse Ox 100 10/29/20 05:00 Intake & Output 10/28/20 10/29/20 10/29/20 18:59 06:59 18:59 Intake Total 870 Balance 870 Weight 50.349 kg Intake: IV 150 Sodium Chloride 0.9% 1, 150 000 ml @ 75 mls/hr IV . [id number] [facility] Rx#:[id number] Oral 720 Other: Voiding Method Toilet Toilet Toilet # Voids 2 2 - Labs CBC & Chem 7: 10/29/20 04:54 10/29/20 04:54 Labs: Abnormal Lab Results - Last 24 Hours (Table) 10/28/20 10/28/20 10/28/20 Range/Units 06:59 12:08 17:08 WBC (3.8-10.6) k/uL RBC (3.80-5.40) m/uL Hgb (11.4-16.0) gm/dL Hct (34.0-46.0) % Plt Count (150-450) k/uL Neutrophils # (1.3-7.7) k/uL Sodium (137-145) mmol/L Potassium (3.5-5.1) mmol/L Carbon Dioxide (22-30) mmol/L BUN (7-17) mg/dL Creatinine (0.52-1.04) mg/dL Glucose (74-99) mg/dL POC Glucose (mg/dL) 206 H 201 H (75-99) mg/dL Calcium (8.4-10.2) mg/dL CA 19-9 Antigen 48.2 H (0.0-34.9) U/mL 10/28/20 10/29/20 10/29/20 Range/Units 20:19 04:54 04:54 WBC 13.7 H (3.8-10.6) k/uL RBC 2.98 L (3.80-5.40) m/uL Hgb 8.8 L D (11.4-16.0) gm/dL Hct 25.8 L (34.0-46.0) % Plt Count 457 H (150-450) k/uL Neutrophils # 11.2 H (1.3-7.7) k/uL Sodium 133 L (137-145) mmol/L Potassium 2.9 L (3.5-5.1) mmol/L Carbon Dioxide 20 L (22-30) mmol/L BUN 6 L (7-17) mg/dL Creatinine 0.38 L (0.52-1.04) mg/dL Glucose 127 H (74-99) mg/dL POC Glucose (mg/dL) 202 H (75-99) mg/dL Calcium 7.8 L (8.4-10.2) mg/dL CA 19-9 Antigen (0.0-34.9) U/mL 10/29/20 Range/Units 06:59 WBC (3.8-10.6) k/uL RBC (3.80-5.40) m/uL Hgb (11.4-16.0) gm/dL Hct (34.0-46.0) % Plt Count (150-450) k/uL Neutrophils # (1.3-7.7) k/uL Sodium (137-145) mmol/L Potassium (3.5-5.1) mmol/L Carbon Dioxide (22-30) mmol/L BUN (7-17) mg/dL Creatinine (0.52-1.04) mg/dL Glucose (74-99) mg/dL POC Glucose (mg/dL) 135 H (75-99) mg/dL Calcium (8.4-10.2) mg/dL CA 19-9 Antigen (0.0-34.9) U/mL Microbiology - Last 24 Hours (Table) 10/28/20 06:59 Blood Culture - Preliminary Blood No Growth after 24 hours 10/28/20 06:59 Blood Culture - Preliminary Blood No Growth after 24 hours
[2020-10-29 17:05] LABS: Glucose,Whole Blood 254 mg/dL (75-99)
[2020-10-29 20:13] LABS: Glucose,Whole Blood 169 mg/dL (75-99)
--- NOTE | 2020-10-29 23:31 | PN ---
PROGRESS NOTE DATE OF SERVICE: 10/29/2020 REASON FOR FOLLOWUP: Fever, possible abdominal source. INTERVAL HISTORY: The patient's overall fever pattern has improved. The patient abdominal pain has slightly decreased in intensity. Denies having any chest pain. No shortness of breath. No cough. No nausea, no vomiting. PHYSICAL EXAMINATION: Her blood pressure 119/70 with a pulse of 73, temperature 98.2. She is 99% room air. General description is an elderly female lying in bed in no distress. Respiratory system: Unlabored breathing, clear to auscultation anteriorly. Heart S1, S2. Regular rate and rhythm. Abdomen is soft, no tenderness. Extremities: No edema of the feet. LABS: CT of abdomen and pelvis did not show any abscess . DIAGNOSTIC IMPRESSION AND PLAN: The patient with a fever with concern for possible abdominal source. This patient does have a history of pancreatic mass. Concern for cholangitis. Blood culture has been negative. Urine responded to Zosyn to continue and monitor clinical course closely. Continue supportive care. MMODL / IJN: [id number] /
[2020-10-30] MEDS: SODIUM CHLORIDE 0.9% 1,000 ML IV SCH ×2 (04:39→19:29)
[2020-10-30 04:46] LABS: Appearance,Urine Clear (Clear); Bilirubin,Urine Negative (Negative); Blood,Urine Negative (Negative); Color,Urine Yellow; Glucose,Urine (UA) Negative (Negative); Ketones,Urine Negative (Negative); Leukocyte Esterase,Urine Negative (Negative); Nitrite,Urine Negative (Negative); Protein,Urine Trace (Negative); Specific Gravity,Urine 1.023 (1.001-1.035); Urobilinogen,Urine <2.0 mg/dL (<2.0)
[2020-10-30 07:06] LABS: Glucose,Whole Blood 143 mg/dL (75-99)
[2020-10-30] MEDS: PIPERACILLIN-TAZOBACTAM 3.375 GM in SODIUM CHLORIDE 0.9% 100 ML IVPB SCH ×3 (08:40→23:07)
[2020-10-30] MEDS: lisinopriL 20 MG TAB PO SCH (08:41)
[2020-10-30] MEDS: amLODIPine 10 MG TAB PO SCH (08:41)
[2020-10-30] MEDS: PANTOPRAZOLE 40 MG TABLET PO SCH (08:41)
[2020-10-30] MEDS: ENOXAPARIN 40 MG/0.4 ML SYRINGE SQ SCH ×2 (08:41→08:49)
[2020-10-30] MEDS: traMADol 50 MG TAB PO PRN (08:45)
[2020-10-30 09:24] LABS: ALT 19 U/L (4-34); AST 31 U/L (14-36); African American GFR (CKD) >90 (>60 ml/min/1.73 sqM); Albumin 2.5 g/dL (3.5-5.0); Albumin/Globulin Ratio 0.9; Alkaline Phosphatase 239 U/L (38-126); Anion Gap 6 mmol/L; Blood Urea Nitrogen 3 mg/dL (7-17); Calcium 8.1 mg/dL (8.4-10.2); Carbon Dioxide 20 mmol/L (22-30); Chloride 106 mmol/L (98-107); Globulin 2.9 g/dL; Glucose 221 mg/dL (74-99); Non-African American GFR(CKD) >90 (>60 ml/min/1.73 sqM); Potassium 3.7 mmol/L (3.5-5.1); Sodium 132 mmol/L (137-145); Total Bilirubin 1.8 mg/dL (0.2-1.3); Total Protein 5.4 g/dL (6.3-8.2)
[2020-10-30 09:35] LABS: Basophils # (A) 0.1 k/uL (0-0.2); Basophils % (A) 1 %; Eosinophils # (A) 0.1 k/uL (0-0.7); Eosinophils % (A) 1 %; HCT 29.6 % (34.0-46.0); HGB 9.7 gm/dL (11.4-16.0); Hypochromasia Slight; Lymphocytes # (A) 1.6 k/uL (1.0-4.8); Lymphocytes % (A) 15 %; MCHC 32.6 g/dL (31.0-37.0); MCV 89.1 fL (80.0-100.0); Monocytes # (A) 0.5 k/uL (0-1.0); Monocytes % (A) 5 %; Neutrophils # (A) 7.4 k/uL (1.3-7.7); Neutrophils % (A) 73 %; Platelet Count 532 k/uL (150-450); Poikilocytosis Slight; RBC 3.33 m/uL (3.80-5.40); RDW 15.3 % (11.5-15.5); WBC 10.1 k/uL (3.8-10.6)
[2020-10-30 11:16] LABS: Glucose,Whole Blood 217 mg/dL (75-99)
--- NOTE | 2020-10-30 13:48 | P.PN ---
Subjective Progress Note Date: 10/30/20 Principal diagnosis: Pancreatic Cancer 100.2 fever overnight Objective - Vital Signs Vital signs: Vital Signs Temp 98.9 F 10/30/20 05:00 Pulse 70 10/30/20 05:00 Resp 18 10/30/20 05:00 BP 120/69 10/30/20 05:00 Pulse Ox 100 10/30/20 05:00 Intake & Output 10/29/20 10/30/20 10/30/20 18:59 06:59 18:59 Intake Total 950 Balance 950 Intake: Intake, IV Titration 700 Amount Piperacillin-Tazobactam 3 100 .375 gm In Sodium Chloride 0.9% 100 ml @ 25 mls/hr IVPB Q8HR [facility] Rx# :[id number] Sodium Chloride 0.9% 1, 600 000 ml @ 75 mls/hr IV . [id number] [facility] Rx#:[id number] Oral 250 Other: Voiding Method Toilet Toilet Toilet # Voids 2 2 - Exam - Constitutional General appearance: no acute distress, thin - EENT Eyes: PERRLA ENT: hard of hearing, NA/AT - Neck Neck: normal ROM - Respiratory Respiratory: bilateral: diminished - Cardiovascular Rhythm: regular - Gastrointestinal General gastrointestinal: soft, tenderness - Integumentary Integumentary: pale - Neurologic Neurologic: CNII-XII intact - Musculoskeletal Musculoskeletal: generalized weakness - Psychiatric Psychiatric: A&O x's 3, appropriate affect, intact judgment & insight - Labs CBC & Chem 7: 10/30/20 08:49 10/30/20 08:49 Labs: Abnormal Lab Results - Last 24 Hours (Table) 10/29/20 10/29/20 10/29/20 Range/Units 04:54 11:42 17:04 Sodium (137-145) mmol/L Carbon Dioxide (22-30) mmol/L BUN (7-17) mg/dL Creatinine (0.52-1.04) mg/dL Glucose (74-99) mg/dL POC Glucose (mg/dL) 243 H 254 H (75-99) mg/dL Calcium (8.4-10.2) mg/dL Magnesium 1.5 L (1.6-2.3) mg/dL Total Bilirubin 1.6 H (0.2-1.3) mg/dL Alkaline Phosphatase 207 H (38-126) U/L Total Protein 4.6 L (6.3-8.2) g/dL Albumin 2.1 L (3.5-5.0) g/dL Urine Protein (Negative) 10/29/20 10/30/20 10/30/20 Range/Units 20:06 07:05 08:49 Sodium 132 L (137-145) mmol/L Carbon Dioxide 20 L (22-30) mmol/L BUN 3 L (7-17) mg/dL Creatinine 0.41 L (0.52-1.04) mg/dL Glucose 221 H (74-99) mg/dL POC Glucose (mg/dL) 169 H 143 H (75-99) mg/dL Calcium 8.1 L (8.4-10.2) mg/dL Magnesium (1.6-2.3) mg/dL Total Bilirubin 1.8 H (0.2-1.3) mg/dL Alkaline Phosphatase 239 H (38-126) U/L Total Protein 5.4 L (6.3-8.2) g/dL Albumin 2.5 L (3.5-5.0) g/dL Urine Protein (Negative) 10/30/20 Range/Units Unknown Sodium (137-145) mmol/L Carbon Dioxide (22-30) mmol/L BUN (7-17) mg/dL Creatinine (0.52-1.04) mg/dL Glucose (74-99) mg/dL POC Glucose (mg/dL) (75-99) mg/dL Calcium (8.4-10.2) mg/dL Magnesium (1.6-2.3) mg/dL Total Bilirubin (0.2-1.3) mg/dL Alkaline Phosphatase (38-126) U/L Total Protein (6.3-8.2) g/dL Albumin (3.5-5.0) g/dL Urine Protein Trace H (Negative) Microbiology - Last 24 Hours (Table) 10/28/20 06:59 Blood Culture - Preliminary Blood No Growth after 48 hours 10/28/20 06:59 Blood Culture - Preliminary Blood No Growth after 48 hours Assessment and Plan (1) Pancreatic cancer Current Visit: Yes Status: Acute Code(s): C25.9 - MALIGNANT NEOPLASM OF PANCREAS, UNSPECIFIED SNOMED Code(s): 468243894 (2) Back ache Current Visit: Yes Status: Acute Code(s): M54.9 - DORSALGIA, UNSPECIFIED SNOMED Code(s): 997811128 (3) Abdominal pain Current Visit: Yes Status: Acute Code(s): R10.9 - UNSPECIFIED ABDOMINAL PAIN SNOMED Code(s): 96589811 (4) Hyperbilirubinemia Current Visit: No Status: Acute Code(s): E80.6 - OTHER DISORDERS OF BILIRUBIN METABOLISM SNOMED Code(s): 70172239 Plan: Review of CT without acute situation to be related to increased pain, likely related to underlying malignancy Bone scan negative for metastatic disease ID following for fevers, Infectious source ?biliary stent Continue Antibiotics COntinue Increased Fentanyl and discontinued all except one medication for breakthrough. Bowel regimen to continue. Discussed with Primary team Monitor closely and conservatively PET is scheduled at Discharge
--- NOTE | 2020-10-30 14:20 | P.PN ---
<Luba Claudio - Last Filed: 10/30/20 14:13> Subjective Progress Note Date: 10/30/20 CHIEF COMPLAINT: Abdominal pain HISTORY OF PRESENT ILLNESS: Patient has known history of pancreatic cancer. Patient currently denies any abdominal pain. She does report that the pain does come and go. She denies any nausea or vomiting. She is tolerating regular diet. Patient did have a temp of 100.2 last night. WBC has normalized from 13.7-10.1 hemoglobin 9.7 total bilirubin 1.8 AST 31 ALT 19 alk phos 239 PHYSICAL EXAM: VITAL SIGNS: Reviewed. GENERAL: Well-developed in no acute distress. HEENT: No sclera icterus. Extraocular movements grossly intact. Moist buccal mucosa. Head is atraumatic, normocephalic. ABDOMEN: Soft. Nondistended. Nontender. NEUROLOGIC: Alert and oriented. Cranial nerves II through XII grossly intact. ASSESSMENT: 1. Abdominal pain 2. Pneumobilia noted on CAT scan secondary to the bile duct stent. This is an expected finding 3. History of pancreatic cancer PLAN: -No surgical intervention planned -Patient may require transfer back to [facility] where she had the ERCP and bile duct stent placed. -Continue supportive care -Continue antibiotic per ID -Continue supportive care Physician [employer] Superintendent note has been reviewed by physician. Signing provider agrees with the documented findings, assessment, and plan of care. Objective - Vital Signs Vital signs: Vital Signs Temp 98 F 10/30/20 11:38 Pulse 66 10/30/20 11:38 Resp 17 10/30/20 11:38 BP 126/66 10/30/20 11:38 Pulse Ox 100 10/30/20 11:38 Intake & Output 10/29/20 10/30/20 10/30/20 18:59 06:59 18:59 Intake Total 950 Balance 950 Intake: Intake, IV Titration 700 Amount Piperacillin-Tazobactam 3 100 .375 gm In Sodium Chloride 0.9% 100 ml @ 25 mls/hr IVPB Q8HR [facility] Rx# :[id number] Sodium Chloride 0.9% 1, 600 000 ml @ 75 mls/hr IV . [id number] [facility] Rx#:[id number] Oral 250 Other: Voiding Method Toilet Toilet Toilet # Voids 2 2 - Labs CBC & Chem 7: 10/30/20 08:49 10/30/20 08:49 Labs: Abnormal Lab Results - Last 24 Hours (Table) 10/29/20 10/29/20 10/30/20 Range/Units 17:04 20:06 07:05 RBC (3.80-5.40) m/uL Hgb (11.4-16.0) gm/dL Hct (34.0-46.0) % Plt Count (150-450) k/uL Sodium (137-145) mmol/L Carbon Dioxide (22-30) mmol/L BUN (7-17) mg/dL Creatinine (0.52-1.04) mg/dL Glucose (74-99) mg/dL POC Glucose (mg/dL) 254 H 169 H 143 H (75-99) mg/dL Calcium (8.4-10.2) mg/dL Total Bilirubin (0.2-1.3) mg/dL Alkaline Phosphatase (38-126) U/L Total Protein (6.3-8.2) g/dL Albumin (3.5-5.0) g/dL Urine Protein (Negative) 10/30/20 10/30/20 10/30/20 Range/Units 08:49 08:49 11:12 RBC 3.33 L (3.80-5.40) m/uL Hgb 9.7 L (11.4-16.0) gm/dL Hct 29.6 L (34.0-46.0) % Plt Count 532 H (150-450) k/uL Sodium 132 L (137-145) mmol/L Carbon Dioxide 20 L (22-30) mmol/L BUN 3 L (7-17) mg/dL Creatinine 0.41 L (0.52-1.04) mg/dL Glucose 221 H (74-99) mg/dL POC Glucose (mg/dL) 217 H (75-99) mg/dL Calcium 8.1 L (8.4-10.2) mg/dL Total Bilirubin 1.8 H (0.2-1.3) mg/dL Alkaline Phosphatase 239 H (38-126) U/L Total Protein 5.4 L (6.3-8.2) g/dL Albumin 2.5 L (3.5-5.0) g/dL Urine Protein (Negative) 10/30/20 Range/Units Unknown RBC (3.80-5.40) m/uL Hgb (11.4-16.0) gm/dL Hct (34.0-46.0) % Plt Count (150-450) k/uL Sodium (137-145) mmol/L Carbon Dioxide (22-30) mmol/L BUN (7-17) mg/dL Creatinine (0.52-1.04) mg/dL Glucose (74-99) mg/dL POC Glucose (mg/dL) (75-99) mg/dL Calcium (8.4-10.2) mg/dL Total Bilirubin (0.2-1.3) mg/dL Alkaline Phosphatase (38-126) U/L Total Protein (6.3-8.2) g/dL Albumin (3.5-5.0) g/dL Urine Protein Trace H (Negative) Microbiology - Last 24 Hours (Table) 10/28/20 06:59 Blood Culture - Preliminary Blood No Growth after 48 hours 10/28/20 06:59 Blood Culture - Preliminary Blood No Growth after 48 hours <Trenton Douglass - Last Filed: 10/30/20 18:36> Subjective As above. Patient's pain is improved. Labs noted. Continue antibiotics. Continue GI evaluation Objective - Vital Signs Vital signs: Vital Signs Temp 98 F 10/30/20 11:38 Pulse 66 10/30/20 11:38 Resp 17 10/30/20 11:38 BP 126/66 10/30/20 11:38 Pulse Ox 100 10/30/20 11:38 Intake & Output 10/29/20 10/30/20 10/30/20 18:59 06:59 18:59 Intake Total 950 900 Balance 950 900 Intake: IV 900 Sodium Chloride 0.9% 1, 900 000 ml @ 75 mls/hr IV . [id number] [facility] Rx#:[id number] Intake, IV Titration 700 Amount Piperacillin-Tazobactam 3 100 .375 gm In Sodium Chloride 0.9% 100 ml @ 25 mls/hr IVPB Q8HR [facility] Rx# :[id number] Sodium Chloride 0.9% 1, 600 000 ml @ 75 mls/hr IV . [id number] [facility] Rx#:[id number] Oral 250 Other: Voiding Method Toilet Toilet Toilet # Voids 2 2 2 # Bowel Movements 2 - Labs CBC & Chem 7: 10/30/20 08:49 10/30/20 08:49 Labs: Abnormal Lab Results - Last 24 Hours (Table) 10/29/20 10/30/20 10/30/20 Range/Units 20:06 07:05 08:49 RBC 3.33 L (3.80-5.40) m/uL Hgb 9.7 L (11.4-16.0) gm/dL Hct 29.6 L (34.0-46.0) % Plt Count 532 H (150-450) k/uL Sodium (137-145) mmol/L Carbon Dioxide (22-30) mmol/L BUN (7-17) mg/dL Creatinine (0.52-1.04) mg/dL Glucose (74-99) mg/dL POC Glucose (mg/dL) 169 H 143 H (75-99) mg/dL Calcium (8.4-10.2) mg/dL Total Bilirubin (0.2-1.3) mg/dL Alkaline Phosphatase (38-126) U/L Total Protein (6.3-8.2) g/dL Albumin (3.5-5.0) g/dL Urine Protein (Negative) 10/30/20 10/30/20 10/30/20 Range/Units 08:49 11:12 17:21 RBC (3.80-5.40) m/uL Hgb (11.4-16.0) gm/dL Hct (34.0-46.0) % Plt Count (150-450) k/uL Sodium 132 L (137-145) mmol/L Carbon Dioxide 20 L (22-30) mmol/L BUN 3 L (7-17) mg/dL Creatinine 0.41 L (0.52-1.04) mg/dL Glucose 221 H (74-99) mg/dL POC Glucose (mg/dL) 217 H 226 H (75-99) mg/dL Calcium 8.1 L (8.4-10.2) mg/dL Total Bilirubin 1.8 H (0.2-1.3) mg/dL Alkaline Phosphatase 239 H (38-126) U/L Total Protein 5.4 L (6.3-8.2) g/dL Albumin 2.5 L (3.5-5.0) g/dL Urine Protein (Negative) 10/30/20 Range/Units Unknown RBC (3.80-5.40) m/uL Hgb (11.4-16.0) gm/dL Hct (34.0-46.0) % Plt Count (150-450) k/uL Sodium (137-145) mmol/L Carbon Dioxide (22-30) mmol/L BUN (7-17) mg/dL Creatinine (0.52-1.04) mg/dL Glucose (74-99) mg/dL POC Glucose (mg/dL) (75-99) mg/dL Calcium (8.4-10.2) mg/dL Total Bilirubin (0.2-1.3) mg/dL Alkaline Phosphatase (38-126) U/L Total Protein (6.3-8.2) g/dL Albumin (3.5-5.0) g/dL Urine Protein Trace H (Negative) Microbiology - Last 24 Hours (Table) 10/28/20 06:59 Blood Culture - Preliminary Blood No Growth after 48 hours 10/28/20 06:59 Blood Culture - Preliminary Blood No Growth after 48 hours
--- NOTE | 2020-10-30 14:42 | PN ---
PROGRESS NOTE DATE OF SERVICE: 10/30/2020 REASON FOR FOLLOWUP: Fever, likely cholangitis. INTERVAL HISTORY: The patient did have a fever noted 100.2 last night. The patient is afebrile since then. The patient is breathing comfortably. No chest pain, shortness of breath, abdominal pain. No vomiting or diarrhea. PHYSICAL EXAMINATION: Blood pressure 126/56, pulse of 73, temperature 98, she is 100% on room air The patient is an elderly female lying in bed in no distress respiratory system: Unlabored breathing clear to auscultation anteriorly. HEART: S1, S2. Regular rate. ABDOMEN: Soft. No tenderness. LABS: Hemoglobin is 9.1, BUN of 30, creatinine 0.41. Blood culture has been negative. The patient admitted to the hospital with elevated fever, leukocytosis, concern for likely cholangitis. This patient has been did have a biliary stent placement and reports possible transfer to that facility. Currently patient is responding to Zosyn to continue while monitoring course closely. MMODL / IJN: [id number] /
--- NOTE | 2020-10-30 16:22 | P.PN ---
Subjective Progress Note Date: 10/30/20 This is a pleasant 65-year-old female came in with severe abdominal pain diffuse abdominal pain sharp 10 x 10 nonradiating. Patient is also pending a back pain because of which patient had an x-ray of the back which showed spondylolisthesis of the lumbar spine. and effusions patient does have leukocytosis. Patient was recently diagnosed with pancreatic cancer in month of September and patient is undergoing further workup before chemotherapy. Patient has a PET scan scheduled her in 10 days. Patient denied any nausea vomiting diarrhea. Patient denied any constipation either. Patient was started on morphine and Dilaudid for pain. Patient will be started on long-acting opiate for baseline p ain control. Patient will be continued on as needed Dilaudid. Patient is also found to be hyponatremic, further workup for hyponatremia was ordered. 10/28/2020 Patient seen and evaluated in follow up this morning and CTabdomen ordered and patient had nausea with vomiting noted after the contrast, but vomitus was bilious in nature. Patient has back pain and pain management consulted. ONcology and infectious disease following. wbc elevated at 17.4 and hemoglobin stable. Sodium slightly improved at 132. Patient was tolerating diet. Patient continues to be febrile and started on IV antibiotics and infectious disease following. 10/29/2020 Patient is seen in follow-up this morning continues to have abdominal discomfort and decreased appetite that she states comes and goes although no reports of nausea or vomiting noted. Patient continued to be febrile throughout the night and currently afebrile this morning and will continue to monitor closely. Patient underwent bone scan which was negative for metastasis and did have surgery consult and evaluate the patient for possible pneumobilia around bile duct stent and patient would likely need to return to [facility] where she had the stent placed for further treatment. Patient is refusing any further treatment at [facility] and would like to continue with care here along with oncology here as well. Oncology is following. Patient is requesting to go home. White blood count trending down at 13.7 and hemoglobin is stable at 8.8 with no active bleeding noted. Sodium is 133 and potassium is 2.9 and will replace per protocol. Magnesium also 1.5 and will replace as well and repeat a.m. labs. 10/30/2020 Patient is seen this morning and denies abdominal discomfort currently states it comes and goes although did report having 2 bowel movements since last night. Abdomen is soft and nontender. Patient denies any nausea or vomiting and is tolerating diet. Patient had one intermittent episode of low-grade temp of 100.2 last night and no further fevers today. Patient continues to be bundled up in multiple layers of clothing and multiple blankets and discussed with nursing staff about accurately assessing temp without all these multiple layers noted. Patient continues on Zosyn and may possibly transition to oral antibi otics on discharge. Will discuss with infectious disease. Blood cultures remain negative. Surgery also following for pneumobilia noted around the stent that was placed at [facility] in no surgical interventions planned and patient would potentially need transfer to that physician at [facility]. Patient is refusing transfer and does not want to continue with [facility]. Patient is requesting to go home. White blood count within normal limits at 10.1 and hemoglobin is stable at 9.7. Sodium is 132 with a potassium of 3.7 and current creatinine is 0.41. Magnesium is 1.7 and total bilirubin 1.8. ALT, AST within normal limits and alkaline phosphatase elevated at 239. Review of systems: Constitutional: reports of fatigue, intermittent fever throughout the night, denies chills Cardiovascular: No reports of chest pain or palpitations Respiratory: No reports of shortness of breath or cough GI: No reports of nausea, vomiting, or diarrhea, has intermittent abdominal discomfort : No reports of dysuria or retention Neurovascular:reports generalized weakness All medications have been reviewed PHYSICAL EXAMINATION: GENERAL: The patient is alert and oriented x3, not in any acute distress. Thin built HEENT: Pupils are round and equally reacting to light. EOMI. No scleral icterus. No conjunctival pallor. Normocephalic, atraumatic. No pharyngeal erythema. No thyromegaly. CARDIOVASCULAR: S1 and S2 present. No murmurs, rubs, or gallops. PULMONARY: Chest is clear to auscultation, no wheezing or crackles. ABDOMEN: Soft, significant diffuse tenderness mostly in the epigastric area, somewhat improved today, nondistended, normoactive bowel sounds. No palpable organomegaly. MUSCULOSKELETAL: No joint swelling or deformity. EXTREMITIES: No cyanosis, clubbing, or pedal edema. NEUROLOGICAL: Gross neurological examination did not reveal any focal deficits. SKIN: No rashes. Assessment and plan: -Severe abdominal pain: Secondary to pancreatic cancer, pain management ev aluated the patient and recommending outpatient follow-up once infectious process and current situation is improved -sepsis, with associated fevers and elevated WBC, present on admission. Started on IV antibiotics with infectious disease following continued fevers throughout the night. -Hyponatremia mostly hypervolemic, improving currently 132 -Hypokalemia, improved currently at 3.7 -Hypomagnesemia, improved at 1.7 -pneumobilia around bile duct stent, general surgery evaluated the patient pretty mmending no surgical intervention at this time and would need to follow with [facility] who placed a stent -Type 2 diabetes mellitus, uncontrolled with hyperglycemia; continue sliding scale and accuchecks. -Hypertension -DVT prophylaxis: Lovenox -GI prophylaxis: protonix -full code plan: Continue current medications. Potassium and magnesium improved after replacement. White blood count within normal limits. Patient did have one intermittent fever documented of 100.2 last night with no documented fevers today. Patient continues on IV Zosyn with infectious disease following. There was discussion of possible transfer if requiring intervention secondary to the pneumobilia at the bile duct stent to [facility] where the stent was placed although patient is refusing any form of transfer and does not want to continue any care at [facility]. Patient is requesting to go home. Will monitor overnight for any further attempts with possible discharge in 24 hours. Objective - Vital Signs Vital signs: Vital Signs Temp 98.9 F 10/30/20 05:00 Pulse 70 10/30/20 05:00 Resp 18 10/30/20 05:00 BP 120/69 10/30/20 05:00 Pulse Ox 100 10/30/20 05:00 Intake & Output 10/29/20 10/30/20 10/30/20 18:59 06:59 18:59 Intake Total 950 Balance 950 Intake: Intake, IV Titration 700 Amount Piperacillin-Tazobactam 3 100 .375 gm In Sodium Chloride 0.9% 100 ml @ 25 mls/hr IVPB Q8HR [facility] Rx# :[id number] Sodium Chloride 0.9% 1, 600 000 ml @ 75 mls/hr IV . [id number] [facility] Rx#:[id number] Oral 250 Other: Voiding Method Toilet Toilet # Voids 2 2 - Labs CBC & Chem 7: 10/30/20 08:49 10/30/20 08:49 Labs: Abnormal Lab Results - Last 24 Hours (Table) 10/29/20 10/29/20 10/29/20 Range/Units 04:54 11:42 17:04 POC Glucose (mg/dL) 243 H 254 H (75-99) mg/dL Magnesium 1.5 L (1.6-2.3) mg/dL Total Bilirubin 1.6 H (0.2-1.3) mg/dL Alkaline Phosphatase 207 H (38-126) U/L Total Protein 4.6 L (6.3-8.2) g/dL Albumin 2.1 L (3.5-5.0) g/dL Urine Protein (Negative) 10/29/20 10/30/20 10/30/20 Range/Units 20:06 07:05 Unknown POC Glucose (mg/dL) 169 H 143 H (75-99) mg/dL Magnesium (1.6-2.3) mg/dL Total Bilirubin (0.2-1.3) mg/dL Alkaline Phosphatase (38-126) U/L Total Protein (6.3-8.2) g/dL Albumin (3.5-5.0) g/dL Urine Protein Trace H (Negative) Microbiology - Last 24 Hours (Table) 10/28/20 06:59 Blood Culture - Preliminary Blood No Growth after 24 hours 10/28/20 06:59 Blood Culture - Preliminary Blood No Growth after 24 hours
[2020-10-30 17:22] LABS: Glucose,Whole Blood 226 mg/dL (75-99)
[2020-10-30] MEDS: ACETAMINOPHEN TAB 325 MG TAB PO PRN (19:29)
[2020-10-30 20:13] LABS: Glucose,Whole Blood 284 mg/dL (75-99)
[2020-10-31 06:09] LABS: HCT 26.4 % (34.0-46.0); HGB 8.9 gm/dL (11.4-16.0); MCH 28.9 pg (25.0-35.0); MCHC 33.7 g/dL (31.0-37.0); Mean Platelet Volume 8.1; Platelet Count 494 k/uL (150-450); Poikilocytosis Moderate; RBC 3.07 m/uL (3.80-5.40); RDW 15.3 % (11.5-15.5); WBC 8.1 k/uL (3.8-10.6)
[2020-10-31 06:29] LABS: Basophils # (M) 0.08 k/uL (0-0.2); Eosinophils # (M) 0.16 k/uL (0-0.7); Lymphocytes # (M) 2.59 k/uL (1.0-4.8); Monocytes # (M) 0.41 k/uL (0-1.0); Neutrophils # (M) 4.86 k/uL (1.3-7.7); Neutrophils % (M) 60 %; Nucleated Red Blood Cells 0 /100 WBC (0-0); Total Cells Counted 100
[2020-10-31 06:59] LABS: Glucose,Whole Blood 160 mg/dL (75-99)
[2020-10-31] MEDS: PIPERACILLIN-TAZOBACTAM 3.375 GM in SODIUM CHLORIDE 0.9% 100 ML IVPB SCH (08:59)
[2020-10-31] MEDS: traMADol 50 MG TAB PO PRN (08:59)
[2020-10-31] MEDS: lisinopriL 20 MG TAB PO SCH (08:59)
[2020-10-31] MEDS: PANTOPRAZOLE 40 MG TABLET PO SCH (08:59)
[2020-10-31] MEDS: amLODIPine 10 MG TAB PO SCH (08:59)
[2020-10-31] MEDS: SODIUM CHLORIDE 0.9% 1,000 ML IV SCH (09:00)
[2020-10-31] MEDS: ENOXAPARIN 40 MG/0.4 ML SYRINGE SQ SCH (09:05)
[2020-10-31 11:19] LABS: Glucose,Whole Blood 245 mg/dL (75-99)
[2020-10-31 11:38] VITALS: BP 139/80; PULSE 69; RESP 17; TEMP 97.7
--- NOTE | 2020-10-31 12:12 | P.PN ---
<Luba Claudio - Last Filed: 10/31/20 12:10> Subjective Progress Note Date: 10/31/20 CHIEF COMPLAINT: Abdominal pain HISTORY OF PRESENT ILLNESS: Patient has known history of pancreatic cancer. Patient currently denies any abdominal pain. She does report that the pain does come and go. She denies any nausea or vomiting. She is tolerating regular diet. Patient wants to be discharged home today. Afebrile. WBC 8.1 hemoglobin 8.9 PHYSICAL EXAM: VITAL SIGNS: Reviewed. GENERAL: Well-developed in no acute distress. HEENT: No sclera icterus. Extraocular movements grossly intact. Moist buccal mucosa. Head is atraumatic, normocephalic. ABDOMEN: Soft. Nondistended. NEUROLOGIC: Alert and oriented. Cranial nerves II through XII grossly intact. ASSESSMENT: 1. Abdominal pain improved 2. Pneumobilia noted on CAT scan secondary to the bile duct stent. This is an expected finding 3. History of pancreatic cancer PLAN: -No surgical intervention planned -Patient can be discharged from surgical standpoint -We'll have patient follow-up with Dr. Andres next week in office for scheduling port placement to start chemotherapy -Continue supportive care -Continue antibiotic per ID Physician [employer] Cto note has been reviewed by physician. Signing provider agrees with the documented findings, assessment, and plan of care. Objective - Vital Signs Vital signs: Vital Signs Temp 97.7 F 10/31/20 11:38 Pulse 69 10/31/20 11:38 Resp 17 10/31/20 11:38 BP 139/80 10/31/20 11:38 Pulse Ox 100 10/31/20 11:38 Intake & Output 10/30/20 10/31/20 10/31/20 18:59 06:59 18:59 Intake Total 900 Balance 900 Intake: IV 900 Sodium Chloride 0.9% 1, 900 000 ml @ 75 mls/hr IV . [id number] [facility] Rx#:[id number] Other: Voiding Method Toilet Toilet Toilet # Voids 2 # Bowel Movements 2 - Labs CBC & Chem 7: 10/31/20 05:27 10/30/20 08:49 Labs: Abnormal Lab Results - Last 24 Hours (Table) 10/30/20 10/30/20 10/31/20 Range/Units 17:21 20:11 05:27 RBC 3.07 L (3.80-5.40) m/uL Hgb 8.9 L (11.4-16.0) gm/dL Hct 26.4 L (34.0-46.0) % Plt Count 494 H (150-450) k/uL POC Glucose (mg/dL) 226 H 284 H (75-99) mg/dL 10/31/20 10/31/20 Range/Units 06:57 11:18 RBC (3.80-5.40) m/uL Hgb (11.4-16.0) gm/dL Hct (34.0-46.0) % Plt Count (150-450) k/uL POC Glucose (mg/dL) 160 H 245 H (75-99) mg/dL Microbiology - Last 24 Hours (Table) 10/28/20 06:59 Blood Culture - Preliminary Blood No Growth after 72 hours 10/28/20 06:59 Blood Culture - Preliminary Blood No Growth after 72 hours <Trenton Douglass - Last Filed: 10/31/20 16:11> Subjective As above. Patient being discharged. Can be scheduled next week for Port-A-Cath placement. Objective - Vital Signs Vital signs: Vital Signs Temp 97.7 F 10/31/20 11:38 Pulse 69 10/31/20 11:38 Resp 17 10/31/20 11:38 BP 139/80 10/31/20 11:38 Pulse Ox 100 10/31/20 11:38 Intake & Output 10/30/20 10/31/20 10/31/20 18:59 06:59 18:59 Intake Total 900 Balance 900 Intake: IV 900 Sodium Chloride 0.9% 1, 900 000 ml @ 75 mls/hr IV . [id number] [facility] Rx#:[id number] Other: Voiding Method Toilet Toilet Toilet # Voids 2 # Bowel Movements 2 - Labs CBC & Chem 7: 10/31/20 05:27 10/31/20 05:27 Labs: Abnormal Lab Results - Last 24 Hours (Table) 10/30/20 10/30/20 10/31/20 Range/Units 17:21 20:11 05:27 RBC 3.07 L (3.80-5.40) m/uL Hgb 8.9 L (11.4-16.0) gm/dL Hct 26.4 L (34.0-46.0) % Plt Count 494 H (150-450) k/uL Potassium (3.5-5.5) mmol/L BUN (9.0-27.0) mg/dL Creatinine (0.6-1.5) mg/dL Glucose (70-110) mg/dL POC Glucose (mg/dL) 226 H 284 H (75-99) mg/dL Calcium (8.7-10.3) mg/dL Magnesium (1.5-2.4) mg/dL Total Bilirubin (0.3-1.2) mg/dL Alkaline Phosphatase (41-126) U/L Total Protein (6.2-8.2) g/dL Albumin (3.80-4.90) g/dL Albumin/Globulin Ratio (1.60-3.17) g/dL 10/31/20 10/31/20 10/31/20 Range/Units 05:27 06:57 11:18 RBC (3.80-5.40) m/uL Hgb (11.4-16.0) gm/dL Hct (34.0-46.0) % Plt Count (150-450) k/uL Potassium 3.2 L (3.5-5.5) mmol/L BUN <5.0 L (9.0-27.0) mg/dL Creatinine 0.4 L (0.6-1.5) mg/dL Glucose 138 H (70-110) mg/dL POC Glucose (mg/dL) 160 H 245 H (75-99) mg/dL Calcium 7.7 L (8.7-10.3) mg/dL Magnesium 1.2 L (1.5-2.4) mg/dL Total Bilirubin 1.8 H (0.3-1.2) mg/dL Alkaline Phosphatase 226 H (41-126) U/L Total Protein 4.8 L (6.2-8.2) g/dL Albumin 2.60 L (3.80-4.90) g/dL Albumin/Globulin Ratio 1.18 L (1.60-3.17) g/dL Microbiology - Last 24 Hours (Table) 10/28/20 06:59 Blood Culture - Preliminary Blood No Growth after 72 hours 10/28/20 06:59 Blood Culture - Preliminary Blood No Growth after 72 hours
[2020-10-31 13:13] LABS: ALT 20 U/L (8-44); AST 29 U/L (13-35); African American GFR (CKD) 126.7 (60.0-200.0); Albumin/Globulin Ratio 1.18 (1.60-3.17); Alkaline Phosphatase 226 U/L (41-126); Blood Urea Nitrogen <5.0 mg/dL (9.0-27.0); Calcium 7.7 mg/dL (8.7-10.3); Carbon Dioxide 22.9 mmol/L (21.6-31.8); Chloride 108 mmol/L (96-109); Globulin 2.2 g/dL (1.6-3.3); Glucose 138 mg/dL (70-110); Magnesium 1.2 mg/dL (1.5-2.4); Non-African American GFR(CKD) 109.3 (60.0-200.0); Potassium 3.2 mmol/L (3.5-5.5); Sodium 139 mmol/L (135-145); Total Bilirubin 1.8 mg/dL (0.3-1.2); Total Protein 4.8 g/dL (6.2-8.2)
--- NOTE | 2020-10-31 16:29 | PN ---
PROGRESS NOTE DATE OF SERVICE: 10/31/2020. FOLLOW UP IS: Fever, possible cholangitis. INTERVAL HISTORY: The patient is afebrile. The patient is feeling better. The patient abdominal pain has improved, resolved and wants to go home. No chest pain, shortness of breath. No cough. No diarrhea. PHYSICAL EXAMINATION: Blood pressure 139/80 with a pulse of 59, temp is 97.9. She is 100% on room air. General description is an elderly female lying in bed in no distress. Respiratory system: Unlabored breathing, clear to auscultation anteriorly. Heart S1, S2. Regular rate and rhythm. Abdomen soft, no tenderness. LABS: Hemoglobin is 8.1, white count 8.1. Blood culture remains negative in this patient admitted to the hospital with sepsis, concern for possible cholangitis, possible transfer to [facility] versus discharge home on oral Augmentin and close outpatient followup. MMODL / IJN: [id number] /
--- NOTE | 2020-11-01 03:06 | P.DS ---
Providers Date of admission: 10/26/20 21:24 Expected date of discharge: 10/31/20 Attending physician: Yvrose Brito Consults: 10/26/20 20:48 Consult Physician Routine Consulting Provider: Anand Muller Consult Reason/Comments: Pancreatic cancer, intractable abdominal pain Do you want consulting provider notified?: Yes 10/28/20 06:21 Consult Physician Urgent Consulting Provider: Key Woodward Consult Reason/Comments: fever Do you want consulting provider notified?: Yes 10/28/20 16:30 Consult Physician Urgent Consulting Provider: Karthik Andres Consult Reason/Comments: pneumobilia around bile duct stent with abd pain/fevers Do you want consulting provider notified?: Yes Primary care physician: Sheron Lorenz [facility] Course: Final Diagnosis -Severe abdominal pain: Secondary to pancreatic cancer -sepsis, with associated fevers and elevated WBC, present on admission -Hyponatremia mostly hypervolemic, improved -Hypokalemia, improved -Hypomagnesemia, improved -pneumobilia around bile duct stent, general surgery evaluated the patient recommending no surgical intervention at this time and would need to follow with Homer Brewster who placed a stent -Type 2 diabetes mellitus, uncontrolled with hyperglycemia -Hypertension -DVT prophylaxis -GI prophylaxis -full code Discharge disposition Patient is being discharged in a stable condition with guarded prognosis to home. Patient will follow-up with Dr. Lorenz in the outpatient setting upon discharge. Patient will also follow up with surgery and oncology outpatient. Patient to continue one week of Augmentin to complete the course. Total time taken is greater than 35 minutes. Hospital course This is a pleasant 65-year-old female came in with severe abdominal pain diffuse abdominal pain sharp 10 x 10 nonradiating. Patient is also pending a back pain because of which patient had an x-ray of the back which showed spondylolisthesis of the lumbar spine. and effusions patient does have leukocytosis. Patient was recently diagnosed with pancreatic cancer in month of September and patient is undergoing further workup before chemotherapy. Patient has a PET scan scheduled her in 10 days. Patient denied any nausea vomiting diarrhea. Patient denied any constipation either. Patient was started on morphine and Dilaudid for pain. Patient will be started on long-acting opiate for baseline pain control. Patient will be continued on as needed Dilaudid. Patient is also found to be hyponatremic, further workup for hyponatremia was ordered. 10/28/2020 Patient seen and evaluated in follow up this morning and CTabdomen ordered and patient had nausea with vomiting noted after the contrast, but vomitus was bilious in nature. Patient has back pain and pain management consulted. ONcology and infectious disease following. wbc elevated at 17.4 and hemoglobin stable. Sodium slightly improved at 132. Patient was tolerating diet. Patient continues to be febrile and started on IV antibiotics and infectious disease following. 10/29/2020 Patient is seen in follow-up this morning continues to have abdominal discomfort and decreased appetite that she states comes and goes although no reports of na usea or vomiting noted. Patient continued to be febrile throughout the night and currently afebrile this morning and will continue to monitor closely. Patient underwent bone scan which was negative for metastasis and did have surgery consult and evaluate the patient for possible pneumobilia around bile duct stent and patient would likely need to return to [facility] where she had the stent placed for further treatment. Patient is refusing any further treatment at [facility] and would like to continue with care here along with oncology here as well. Oncology is following. Patient is requesting to go home. White blood count trending down at 13.7 and hemoglobin is stable at 8.8 with no active bleeding noted. Sodium is 133 and potassium is 2.9 and will replace per protocol. Magnesium also 1.5 and will replace as well and repeat a.m. labs. 10/30/2020 Patient is seen this morning and denies abdominal discomfort currently states it comes and goes although did report having 2 bowel movements since last night. Abdomen is soft and nontender. Patient denies any nausea or vomiting and is tolerating diet. Patient had one intermittent episode of low-grade temp of 100.2 last night and no further fevers today. Patient continues to be bundled up in multiple layers of clothing and multiple blankets and discussed with nursing staff about accurately assessing temp without all these multiple layers noted. Patient continues on Zosyn and may possibly transition to oral antibiotics on discharge. Will discuss with infectious disease. Blood cultures remain negative. Surgery also following for pneumobilia noted around the stent that was placed at [facility] in no surgical interventions planned and patient would potentially need transfer to that physician at [facility]. Patient is refusing transfer and does not want to continue with [facility]. Patient is requesting to go home. White blood count within normal limits at 10.1 and hemoglobin is stable at 9.7. Sodium is 132 with a potassium of 3.7 and current creatinine is 0.41. Magnesium is 1.7 and total bilirubin 1.8. ALT, AST within normal limits and alkaline phosphatase elevated at 239. 10/31/2020 Patient is seen in follow-up with no acute overnight issues noted. Patient denies abdominal pain and has been tolerating diet. Patient remained afebrile over the last 24 hours and WBC normal. Patient is dressed in home clothes and adamant about going home. Patient continues to be weak and states she is going to live with her daughter. Script provided for walker due to weakness and gait dysfunction secondary to pancreatic cancer as she is unable to complete ADLs. Patient was continued on IV zosyn and will give augmentin for one week. Patient will need follow up with surgery outpatient for port placement and oncology follow up as well. Patient continued on fentanyl patch for pain relief. Patient to follow up outpatient with pain management for nerve block. Currently no reports of chest pain, shortness of breath, or palpitations. Patient is afebrile. No reports of nausea or vomiting and patient is tolerating diet. Patient will be discharged home. GENERAL: The patient is alert and oriented x3, not in any acute distress. Thin built HEENT: Pupils are round and equally reacting to light. EOMI. No scleral icterus. No conjunctival pallor. Normocephalic, atraumatic. No pharyngeal erythema. No thyromegaly. CARDIOVASCULAR: S1 and S2 present. No murmurs, rubs, or gallops. PULMONARY: Chest is clear to auscultation, no wheezing or crackles. ABDOMEN: Soft, mildly tender and mproved today, nondistended, normoactive bowel sounds. No palpable organomegaly. MUSCULOSKELETAL: No joint swelling or deformity. EXTREMITIES: No cyanosis, clubbing, or pedal edema. NEUROLOGICAL: Gross neurological examination did not reveal any focal deficits. SKIN: No rashes. On exam vital signs are stable. Cardio S1, S2 are muffled. Respiratory system shows diminished breath sounds at the bases with no wheezing or rhonchi noted. Abdomen is soft and nontender. Nervous system shows no focal deficits. Please refer to medication reconciliation sheet for a list of medications. Patient Condition at Discharge: Good Plan - Discharge Summary Discharge Rx Participant: Yes New Discharge Prescriptions: New Amoxic-Pot Clav 875-125Mg [Augmentin 875-125] 1 tab PO Q12HR 10 Days #20 tab Acetaminophen Tab [Tylenol] 650 mg PO Q4HR PRN tab PRN Reason: Fever And/ Or Pain Magnesium Oxide 400 mg PO DAILY #30 tablet Potassium Chloride 10 meq PO DAILY 30 Days #30 tablet.er fentaNYL 12MCG/HR PATCH [Duragesic 12MCG/HR] 1 patch TRANSDERM Q72H #5 patch Continue amLODIPine BESYLATE/BENAZEPRIL [amLODIPine BESYLATE/BENAZEPRIL 10-40 MG] 1 cap PO DAILY Gabapentin [Neurontin] 300 mg PO BID PRN PRN Reason: Pain Albuterol Sulfate [Albuterol Sulfate Hfa] 2 puff INHALATION RT-Q4H PRN PRN Reason: Shortness Of Breath Omeprazole 40 mg PO DAILY traMADol HCL [Ultram] 1 tab PO BID PRN #12 tab PRN Reason: Pain Discharge Medication List amLODIPine BESYLATE/BENAZEPRIL [amLODIPine BESYLATE/BENAZEPRIL 10-40 MG] 1 cap PO DAILY 09/25/13 [History] Gabapentin [Neurontin] 300 mg PO BID PRN 12/06/16 [History] Albuterol Sulfate [Albuterol Sulfate Hfa] 2 puff INHALATION RT-Q4H PRN 09/04/20 [History] Omeprazole 40 mg PO DAILY 09/24/20 [History] Acetaminophen Tab [Tylenol] 650 mg PO Q4HR PRN tab 10/31/20 [Rx] Amoxic-Pot Clav 875-125Mg [Augmentin 875-125] 1 tab PO Q12HR 10 Days #20 tab 10/31/20 [Rx] Magnesium Oxide 400 mg PO DAILY #30 tablet 10/31/20 [Rx] Potassium Chloride 10 meq PO DAILY 30 Days #30 tablet.er 10/31/20 [Rx] fentaNYL 12MCG/HR PATCH [Duragesic 12MCG/HR] 1 patch TRANSDERM Q72H #5 patch 10/31/20 [Rx] traMADol HCL [Ultram] 1 tab PO BID PRN #12 tab 10/31/20 [Rx] Follow up Appointment(s)/Referral(s): nAand Muller MD [STAFF PHYSICIAN] - 1 Week [facility] [NON-STAFF] - As Needed (Supplier of four wheeled walker ) [facility], [NON-STAFF] - 1-2 Days Sheron Lorenz MD [Primary Care Provider] - 11/19/20 2:00 pm [facility] [NON-STAFF] - As Needed (Contact for possible shower chair) Karthik Andres MD [STAFF PHYSICIAN] - 11/12/20 3:45 pm Ambulatory/Diagnostic Orders: Complete Blood Count w/diff [LAB.AMB] Time Frame: 3 Days, Location: None Selected Activity/Diet/Wound Care/Special Instructions: Activity Limited until follow-up Follow-up with oncology outpatient Follow-up with surgery for possible port placement outpatient in one week Follow-up primary care provider upon discharge Continue with antibiotics until finished Follow-up with Homer BEAN who placed the stent Continue with consistent carb diet Repeat labs in 2-3 days to monitor CBC, CMP, magnesium Discharge Disposition: HOME WITH HOME HEALTH SERVICES
== END 2020-10-31 13:45 | disposition home health service (06) | DRG 872 ==
LOC: EC 18:25 → 4SSUR 21:24 → 5NMEDONC 21:41
PROVIDERS: ADMIT Hospitalist; ATTEND Hospitalist
DX: A41.9 Sepsis, unspecified organism (principal); C25.0 Malignant neoplasm of head of pancreas; E87.1 Hypo-osmolality and hyponatremia; K83.09 Other cholangitis; E11.65 Type 2 diabetes mellitus with hyperglycemia; E78.5 Hyperlipidemia, unspecified; K83.8 Other specified diseases of biliary tract; F17.210 Nicotine dependence, cigarettes, uncomplicated; E83.42 Hypomagnesemia; E87.6 Hypokalemia; E87.70 Fluid overload, unspecified; F32.9 Major depressive disorder, single episode, unspecified; F41.9 Anxiety disorder, unspecified; I10 Essential (primary) hypertension; M43.16 Spondylolisthesis, lumbar region; M81.0 Age-related osteoporosis without current pathological fracture; Z79.899 Other long term (current) drug therapy; Z88.1 Allergy status to other antibiotic agents
CPT/HCPCS: 36415; 71046; 72100; 74177; 78306; 80048; 80053; 80076; 81003; 82570; 83605; 83690; 83735; 83930; 83935; 84300; 84443; 85025; 86301; 87040; 96361; 96374; 96375; 99285

== ENCOUNTER → 2020-11-01 | Outpatient (CLI) | payer MEDICARE, OTHER ==
--- NOTE | 2020-11-04 06:12 | PE ---
EXAMINATION TYPE: PET CT fusion skull to thigh DATE OF EXAM: 11/01/2020 COMPARISON: CT abdomen and pelvis October 28, 2020. Nuclear medicine whole body bone scan October 29 HISTORY: Newly diagnosed pancreatic cancer on biopsy pancreatic head September 2020 TECHNIQUE: Following the intravenous administration of 10.12 mCi of F-18 FDG, whole body images are performed from the skull base to the midthigh. Images are reviewed on the computer in the coronal, a xial, and sagittal planes. Reconstructed rotating images are created on independent workstation and reviewed on the computer. A localization and attenuation correction CT is performed in conjunction with the PET scan. Blood glucose level equals 143. SCAN: Initial Scan FINDINGS: SKULL BASE AND NECK: No areas of abnormal hypermetabolic uptake. CHEST, MEDIASTINUM, AND HILAR REGION: No areas of abnormal hypermetabolic uptake. ABDOMEN AND PELVIS: Persistent fullness of the pancreatic head with calcifications and mild hypermeta bolic uptake, max SUV is 2.82 on axial image 144. This likely corresponds to area of recent biopsy pr oven adenocarcinoma. Persistent distal atrophy and calcification with ductal dilatation. Pneumobilia again seen. Persistent metallic stent from extrahepatic bile ducts into gastric antrum. Stable slightly prominent periPancreatic lymph node axial image 141 is noted ametabolic. Normal excretion is present. No areas of abnormal hypermetabolic uptake noted. OSSEOUS STRUCTURES: No areas of abnormal hypermetabolic uptake OTHER CT: Mild to moderate calcified plaque bilateral carotid bulb level. Mild underlying emphysemato us change. Moderate to severe three-vessel coronary artery calcification and/or stents, correlate cli nically. Normal-appearing appendix from cecum. Some residual contrast from recent CT in the distal bowel. Post surgical change right proximal femur redemonstrated. Disc space narrowing and vacuum disc phenomenon lumbosacral junction redemonstrated. IMPRESSION: Pancreatic head neoplasm redemonstrated. No metastatic disease identified.
== END | disposition home or self-care (01) ==
LOC: RADPETMAIN 11:11
PROVIDERS: ATTEND Internal Medicine Hematology & Oncology
DX: C25.0 Malignant neoplasm of head of pancreas (principal); I10 Essential (primary) hypertension
CPT/HCPCS: 78815; A9552

== ENCOUNTER 2020-11-11 21:05 | Observation (INO) | payer MEDICARE, OTHER ==
[2020-11-11] MEDS ORDERED: SODIUM CHLORIDE 0.9% 1,000 ML IV STA (21:30)
[2020-11-11] MEDS ORDERED: MORPHINE SULFATE 4 MG/ML SYRINGE IV STA (21:30)
--- NOTE | 2020-11-11 22:09 | ED ---
Abdominal Pain HPI - General Chief Complaint: Abdominal Pain Stated Complaint: ABD Pain Time Seen by Provider: 11/11/20 21:24 Source: patient, EMS Mode of arrival: EMS Limitations: no limitations - Related Data Home Medications Medication Instructions Recorded Confirmed amLODIPine BESYLATE/BENAZEPRIL 1 cap PO DAILY 09/25/13 11/11/20 [amLODIPine BESYLATE/BENAZEPRIL 10-40 MG] Gabapentin [Neurontin] 300 mg PO BID PRN 12/06/16 11/11/20 Albuterol Sulfate [Albuterol 2 puff INHALATION RT-Q4H PRN 09/04/20 11/11/20 Sulfate Hfa] Omeprazole 40 mg PO DAILY 09/24/20 11/11/20 Famotidine [Pepcid] 20 mg PO BID 11/11/20 11/11/20 Previous Rx's Medication Instructions Recorded Acetaminophen Tab [Tylenol] 650 mg PO Q4HR PRN tab 10/31/20 Amoxic-Pot Clav 875-125Mg 1 tab PO Q12HR 10 Days #20 tab 10/31/20 [Augmentin 875-125] Magnesium Oxide 400 mg PO DAILY #30 tablet 10/31/20 Potassium Chloride [Potassium 10 meq PO DAILY 30 Days #30 10/31/20 Chloride ER] tablet.er traMADol HCL [Ultram] 1 tab PO BID PRN #12 tab 10/31/20 Allergies Allergy/AdvReac Type Severity Reaction Status Date / Time erythromycin base AdvReac Nausea Verified 11/11/20 23:21 [Erythromycin Base] Review of Systems ROS Statement: Those systems with pertinent positive or pertinent negative responses have been documented in the HPI. ROS Other: All systems not noted in ROS Statement are negative. 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, head tremor History of Any Multi-Drug Resistant Organisms: None Reported Past Surgical History: Orthopedic Surgery, Tubal Ligation Additional Past Surgical History / Comment(s): 2 pins right hip-dislocated 1975 Past Anesthesia/Blood Transfusion Reactions: No Reported Reaction Past Psychological History: Anxiety, Depression Smoking Status: Current every day smoker Past Alcohol Use History: Daily Past Drug Use History: None Reported - Past Family History Mother Family Medical History: Liver Disease Father Family Medical History: Cancer Additional Family Medical History / Comment(s): Lung and liver cancer. General Exam Limitations: no limitations Course Vital Signs 11/11/20 21:07 Temperature 98.2 F Pulse Rate 80 Respiratory 16 Rate Blood Pressure 155/92 O2 Sat by Pulse 100 Oximetry Medical Decision Making - Lab Data Result diagrams: 11/11/20 22:27 11/11/20 22:27 Lab Results 11/11/20 11/11/20 11/11/20 Range/Units 22:27 22:27 22:27 WBC 13.6 H (3.8-10.6) k/uL RBC 3.66 L (3.80-5.40) m/uL Hgb 10.6 L (11.4-16.0) gm/dL Hct 32.2 L (34.0-46.0) % MCV 88.2 (80.0-100.0) fL MCH 29.0 (25.0-35.0) pg MCHC 32.9 (31.0-37.0) g/dL RDW 15.1 (11.5-15.5) % Plt Count 475 H (150-450) k/uL MPV 7.8 Neutrophils % 71 % Lymphocytes % 21 % Monocytes % 3 % Eosinophils % 2 % Basophils % 1 % Neutrophils # 9.7 H (1.3-7.7) k/uL Lymphocytes # 2.8 (1.0-4.8) k/uL Monocytes # 0.4 (0-1.0) k/uL Eosinophils # 0.3 (0-0.7) k/uL Basophils # 0.1 (0-0.2) k/uL Hypochromasia Slight Poikilocytosis Slight Sodium 132 L (137-145) mmol/L Potassium 4.1 (3.5-5.1) mmol/L Chloride 105 (98-107) mmol/L Carbon Dioxide 22 (22-30) mmol/L Anion Gap 5 mmol/L BUN 7 (7-17) mg/dL Creatinine 0.45 L (0.52-1.04) mg/dL Est GFR (CKD-EPI)AfAm >90 (>60 ml/min/1.73 sqM) Est GFR (CKD-EPI)NonAf >90 (>60 ml/min/1.73 sqM) Glucose 166 H (74-99) mg/dL Calcium 9.2 (8.4-10.2) mg/dL Phosphorus 3.6 (2.5-4.5) mg/dL Magnesium 1.7 (1.6-2.3) mg/dL Total Bilirubin 1.1 (0.2-1.3) mg/dL AST 32 (14-36) U/L ALT 18 (4-34) U/L Alkaline Phosphatase 256 H (38-126) U/L Creatine Kinase 35 (30-135) U/L Total Protein 6.0 L (6.3-8.2) g/dL Albumin 3.0 L (3.5-5.0) g/dL Amylase 82 (30-110) U/L Lipase 114 (23-300) U/L Urine Color Yellow Urine Appearance Clear (Clear) Urine pH 7.0 (5.0-8.0) Ur Specific [place] 1.010 (1.001-1.035) Urine Protein Negative (Negative) Urine Glucose (UA) 3+ H (Negative) Urine Ketones Negative (Negative) Urine Blood Negative (Negative) Urine Nitrite Negative (Negative) Urine Bilirubin Negative (Negative) Urine Urobilinogen <2.0 (<2.0) mg/dL Ur Leukocyte Esterase Negative (Negative) Disposition Clinical Impression: Pancreatic cancer, Cancer associated pain Disposition: ADMITTED IP TO THIS HOSP Condition: Fair Is patient prescribed a controlled substance at d/c from ED?: No Referrals: Sheron Lorenz MD [Primary Care Provider] - 1-2 days
[2020-11-11] MEDS ORDERED: PANTOPRAZOLE 40 MG/10 ML VIAL IVP STA (22:10)
[2020-11-11] MEDS ORDERED: ONDANSETRON 4 MG/2 ML VIAL IVP STA (22:10)
[2020-11-11 22:45] LABS: Basophils # (A) 0.1 k/uL (0-0.2); Basophils % (A) 1 %; Eosinophils # (A) 0.3 k/uL (0-0.7); Eosinophils % (A) 2 %; HCT 32.2 % (34.0-46.0); HGB 10.6 gm/dL (11.4-16.0); Hypochromasia Slight; Lymphocytes # (A) 2.8 k/uL (1.0-4.8); Lymphocytes % (A) 21 %; MCHC 32.9 g/dL (31.0-37.0); MCV 88.2 fL (80.0-100.0); Mean Platelet Volume 7.8; Monocytes # (A) 0.4 k/uL (0-1.0); Monocytes % (A) 3 %; Neutrophils # (A) 9.7 k/uL (1.3-7.7); Neutrophils % (A) 71 %; Platelet Count 475 k/uL (150-450); Poikilocytosis Slight; RBC 3.66 m/uL (3.80-5.40); RDW 15.1 % (11.5-15.5); WBC 13.6 k/uL (3.8-10.6)
[2020-11-11 22:55] LABS: ALT 18 U/L (4-34); AST 32 U/L (14-36); African American GFR (CKD) >90 (>60 ml/min/1.73 sqM); Alkaline Phosphatase 256 U/L (38-126); Amylase 82 U/L (30-110); Anion Gap 5 mmol/L; Blood Urea Nitrogen 7 mg/dL (7-17); Calcium 9.2 mg/dL (8.4-10.2); Carbon Dioxide 22 mmol/L (22-30); Chloride 105 mmol/L (98-107); Creatine Kinase 35 U/L (30-135); Glucose 166 mg/dL (74-99); Lipase 114 U/L (23-300); Magnesium 1.7 mg/dL (1.6-2.3); Non-African American GFR(CKD) >90 (>60 ml/min/1.73 sqM); Phosphorus 3.6 mg/dL (2.5-4.5); Potassium 4.1 mmol/L (3.5-5.1); Sodium 132 mmol/L (137-145); Total Bilirubin 1.1 mg/dL (0.2-1.3)
[2020-11-11 22:59] LABS: Appearance,Urine Clear (Clear); Bilirubin,Urine Negative (Negative); Blood,Urine Negative (Negative); Color,Urine Yellow; Glucose,Urine (UA) 3+ (Negative); Ketones,Urine Negative (Negative); Leukocyte Esterase,Urine Negative (Negative); Nitrite,Urine Negative (Negative); Protein,Urine Negative (Negative); Urobilinogen,Urine <2.0 mg/dL (<2.0)
[2020-11-11] MEDS ORDERED: NALOXONE 0.4 MG/ML 1 ML VIAL IV PRN (23:29)
[2020-11-11] MEDS ORDERED: MORPHINE SULFATE 4 MG/ML SYRINGE IV PRN (23:29)
[2020-11-11] MEDS ORDERED: ONDANSETRON 4 MG/2 ML VIAL IVP PRN (23:29)
--- NOTE | 2020-11-12 00:06 | CT ---
EXAMINATION TYPE: CT abdomen pelvis w con DATE OF EXAM: 11/11/2020 COMPARISON: 10/28/2020 HISTORY: Abd pain CT DLP: 494.1 mGycm Automated exposure control for dose reduction was used. CONTRAST: Performed with IV Contrast, patient injected with 100 mL of Isovue 300. Lung bases show mild subsegmental atelectasis. Heart size is normal. There is no pericardial effusion . There is no pleural effusion. There is air in the biliary tree. There is amorphous calcification at the pancreatic head. There is amorphous calcification in the body and tail of the pancreas. There is some bulkiness at the pancreatic head adjacent to the duodenum. There is dilated pancreatic duct elizabeth t measures 11 mm. Spleen is intact. The stomach is intact. There is no adrenal mass. Kidneys show satisfactory contrast opacification. There is no hydronephrosi s. Ureters are not dilated. Appendix is posterior and appears normal. There is no retroperitoneal molly nopathy. Bladder distends smoothly. There is right hip nailing noted. There is no ascites. There is n o free air. There is no sign of a bowel obstruction. The lumbar vertebra have normal alignment. There is no compression fracture. There is osteosclerosis at L5-S1 with disc space narrowing. There are cystic changes and sclerosis in the left acetabulum con sistent with large degenerative cyst formation. This measures 2.7 cm. IMPRESSION: There is air reflux into the biliary tree that is increased compared to old exam. Extensive pancreati c calcification consistent with chronic pancreatitis. Dilated pancreatic duct. This appears not signi ficantly different than old exam. Enlargement of the pancreatic head unchanged compared to old exam.
[2020-11-12] MEDS: SODIUM CHLORIDE 0.9% 1,000 ML IV SCH ×4 (01:12→21:29)
[2020-11-12 04:12] LABS: Basophils # (A) 0.1 k/uL (0-0.2); Basophils % (A) 1 %; Eosinophils # (A) 0.2 k/uL (0-0.7); Eosinophils % (A) 2 %; HCT 28.9 % (34.0-46.0); HGB 9.2 gm/dL (11.4-16.0); Hypochromasia Moderate; Lymphocytes # (A) 2.7 k/uL (1.0-4.8); Lymphocytes % (A) 26 %; MCH 28.9 pg (25.0-35.0); MCHC 31.9 g/dL (31.0-37.0); MCV 90.6 fL (80.0-100.0); Monocytes # (A) 0.5 k/uL (0-1.0); Monocytes % (A) 4 %; Neutrophils # (A) 6.9 k/uL (1.3-7.7); Neutrophils % (A) 66 %; Platelet Count 436 k/uL (150-450); Poikilocytosis Slight; RBC 3.19 m/uL (3.80-5.40); WBC 10.5 k/uL (3.8-10.6)
[2020-11-12 04:26] LABS: ALT 15 U/L (4-34); AST 30 U/L (14-36); African American GFR (CKD) >90 (>60 ml/min/1.73 sqM); Albumin 2.5 g/dL (3.5-5.0); Alkaline Phosphatase 192 U/L (38-126); Anion Gap 3 mmol/L; Blood Urea Nitrogen 7 mg/dL (7-17); Calcium 8.6 mg/dL (8.4-10.2); Carbon Dioxide 21 mmol/L (22-30); Chloride 107 mmol/L (98-107); Glucose 121 mg/dL (74-99); Magnesium 1.8 mg/dL (1.6-2.3); Non-African American GFR(CKD) >90 (>60 ml/min/1.73 sqM); Phosphorus 4.2 mg/dL (2.5-4.5); Potassium 4.6 mmol/L (3.5-5.1); Sodium 131 mmol/L (137-145); Total Protein 5.2 g/dL (6.3-8.2)
[2020-11-12] MEDS ORDERED: GABAPENTIN 300 MG CAP PO PRN (07:49)
[2020-11-12] MEDS ORDERED: ACETAMINOPHEN TAB 325 MG TAB PO PRN (07:49)
[2020-11-12] MEDS ORDERED: traMADol 50 MG TAB PO PRN (07:49)
[2020-11-12] MEDS ORDERED: ALBUTEROL HFA INHALER INHALATION PRN (07:49)
[2020-11-12] MEDS ORDERED: FAMOTIDINE 20 MG TAB PO SCH (09:00)
[2020-11-12] MEDS ORDERED: PANTOPRAZOLE 40 MG/10 ML VIAL IV SCH (09:00)
--- NOTE | 2020-11-12 09:50 | P.HPIM ---
History of Present Illness This is a pleasant 65 years old -Eth[place]ian female with past medical history of pancreatic cancer, abdominal pain, diabetes mellitus, hypertension, hyperlipidemia, osteoarthritis, chronic back pain with sciatica. Presents with severe epigastric pain that started yesterday 6:30, rated as 10/10 in severity and was radiating to the back and lasted the whole day. She took some more and Pepsi which helped a little bit. No nausea vomiting currently but she vomited a few days ago. She has good bowel movement and looks normal as patient describes Since she came to emergency room and took morphine around 9 PM yesterday her p ain has disappeared which is almost 12 hours now and she rated as 0/10 currently. Patient states that her pain was similar to her previous pancreatic pain. As above now she is with no pain. She denies smoking, she quit drinking last 2 and when she was diagnosed with cancer. She has appointment today for some scan and to follow up with her oncologist at her report Dr. Singletary (!) Amado looks stable. Labs from this morning show normal WBC of 10.5 K, hemoglobin is 9.2, platelet count is normal at 436. Mildly low sodium 131, normal potassium 4.6 and creatinine 0.5. Liver enzymes not elevated and bilirubin is normal at 1.0. Amylase is normal [address] and lipase normal 114. CT of the abdomen and pelvis with contrast: Dilated pancreatic duct at 11 mm and some bulkiness of the pancreatic head adjacent to the duodenum. There is increased air reflux into the biliary tree. Extensive pancreatic calcification consistent with chronic pancreatitis. Enlargement of the pancreatic head and change compared to old exam. Emergency room patient received morphine, Zofran and normal saline. Oncology team were consulted Review of Systems CONSTITUTIONAL: No fever, no malaise, no fatigue. HEENT: No recent visual problems or hearing problems. Denied any sore throat. CARDIOVASCULAR: No orthopnea, PND, no palpitations, no syncope. PULMONARY: No shortness of breath, no cough, no hemoptysis. GASTROINTESTINAL: No diarrhea, no nausea, no vomiting, no abdominal pain. Nor moactive bowel sounds. NEUROLOGICAL: No headaches, no weakness, no numbness. HEMATOLOGICAL: Denies any bleeding or petechiae. GENITOURINARY: Denies any burning micturition, frequency, or urgency. MUSCULOSKELETAL/RHEUMATOLOGICAL: Denies any joint pain, swelling, or any muscle pain. ENDOCRINE: Denies any polyuria or polydipsia. 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, head tremor History of Any Multi-Drug Resistant Organisms: None Reported Past Surgical History: Orthopedic Surgery, Tubal Ligation Additional Past Surgical History / Comment(s): 2 pins right hip-dislocated 1975 Past Anesthesia/Blood Transfusion Reactions: No Reported Reaction Past Psychological History: Anxiety, Depression Smoking Status: Current every day smoker Past Alcohol Use History: Daily Past Drug Use History: None Reported - Past Family History Mother Family Medical History: Liver Disease Father Family Medical History: Cancer Additional Family Medical History / Comment(s): Lung and liver cancer. Medications and Allergies Home Medications Medication Instructions Recorded Confirmed Type amLODIPine BESYLATE/BENAZEPRIL 1 cap PO DAILY 09/25/13 11/11/20 History [amLODIPine BESYLATE/BENAZEPRIL 10-40 MG] Gabapentin [Neurontin] 300 mg PO BID PRN 12/06/16 11/11/20 History Albuterol Sulfate [Albuterol 2 puff INHALATION RT-Q4H PRN 09/04/20 11/11/20 History Sulfate Hfa] Omeprazole 40 mg PO DAILY 09/24/20 11/11/20 History Acetaminophen Tab [Tylenol] 650 mg PO Q4HR PRN tab 10/31/20 11/11/20 Rx Amoxic-Pot Clav 875-125Mg 1 tab PO Q12HR 10 Days #20 tab 10/31/20 11/11/20 Rx [Augmentin 875-125] Magnesium Oxide 400 mg PO DAILY #30 tablet 10/31/20 11/11/20 Rx Potassium Chloride [Potassium 10 meq PO DAILY 30 Days #30 10/31/20 11/11/20 Rx Chloride ER] tablet.er traMADol HCL [Ultram] 1 tab PO BID PRN #12 tab 10/31/20 11/11/20 Rx Famotidine [Pepcid] 20 mg PO BID 11/11/20 11/11/20 History Allergies Allergy/AdvReac Type Severity Reaction Status Date / Time erythromycin base AdvReac Nausea Verified 11/11/20 23:21 [Erythromycin Base] Physical Exam Vitals: Vital Signs Temp Pulse Resp BP Pulse Ox 11/12/20 05:03 78 16 142/82 98 11/11/20 21:07 98.2 F 80 16 155/92 100 Intake and Output 11/11/20 11/12/20 11/12/20 22:59 06:59 14:59 Other: Weight 49.895 kg GENERAL: The patient is alert and oriented x3, not in any acute distress. Well developed, well nourished. HEENT: Pupils are round and equally reacting to light. EOMI. No scleral icterus. No conjunctival pallor. Normocephalic, atraumatic. No pharyngeal erythema. No thyromegaly. CARDIOVASCULAR: S1 and S2 present. No murmurs, rubs, or gallops. PULMONARY: Chest is clear to auscultation, no wheezing or crackles. ABDOMEN: Soft, nontender, nondistended, normoactive bowel sounds. No palpable organomegaly. MUSCULOSKELETAL: No joint swelling or deformity. EXTREMITIES: No cyanosis, clubbing, or pedal edema. NEUROLOGICAL: Gross neurological examination did not reveal any focal deficits. SKIN: No rashes. No petechiae Results CBC & Chem 7: 11/12/20 03:34 11/12/20 03:34 Labs: Abnormal Lab Results - Last 24 Hours (Table) 11/11/20 11/11/20 11/11/20 Range/Units 22:27 22:27 22:27 WBC 13.6 H (3.8-10.6) k/uL RBC 3.66 L (3.80-5.40) m/uL Hgb 10.6 L (11.4-16.0) gm/dL Hct 32.2 L (34.0-46.0) % Plt Count 475 H (150-450) k/uL Neutrophils # 9.7 H (1.3-7.7) k/uL Sodium 132 L (137-145) mmol/L Carbon Dioxide (22-30) mmol/L Creatinine 0.45 L (0.52-1.04) mg/dL Glucose 166 H (74-99) mg/dL Alkaline Phosphatase 256 H (38-126) U/L Total Protein 6.0 L (6.3-8.2) g/dL Albumin 3.0 L (3.5-5.0) g/dL Urine Glucose (UA) 3+ H (Negative) 11/12/20 11/12/20 Range/Units 03:34 03:34 WBC (3.8-10.6) k/uL RBC 3.19 L (3.80-5.40) m/uL Hgb 9.2 L (11.4-16.0) gm/dL Hct 28.9 L (34.0-46.0) % Plt Count (150-450) k/uL Neutrophils # (1.3-7.7) k/uL Sodium 131 L (137-145) mmol/L Carbon Dioxide 21 L (22-30) mmol/L Creatinine 0.51 L (0.52-1.04) mg/dL Glucose 121 H (74-99) mg/dL Alkaline Phosphatase 192 H (38-126) U/L Total Protein 5.2 L (6.3-8.2) g/dL Albumin 2.5 L (3.5-5.0) g/dL Urine Glucose (UA) (Negative) Assessment and Plan Assessment: Episodic epigastric Abdominal pain, now completely resolved Pancreatic cancer Chronic pancreatitis Mild calories protein malnutrition Hypertension Hyperlipidemia Diabetes mellitus Osteoarthritis Chronic back pain with sciatic Plan: this is a pleasant 65 years old female who presents with abdominal pain related to her pancreatic disease, cancers/chronic pancreatitis however her pain have resolved now Continue with intravenous hydration, pain management. Hematology/oncology consult Labs and medication were reviewed.. Continue same treatment. Continue with symptomatic treatment. Resume home medication. Monitor lytes and vitals. DVT and GI prophylaxis. Further recommendations depends on the clinical course of the patient DVT prophylaxis: Subcutaneous heparin GI Prophylaxis: Pepcid Since the patient's symptoms improved and labs looks stable, will follow-up recommendation with lock expert/oncologist and consider for possible discharge if she got cleared
[2020-11-12] MEDS: lisinopriL 20 MG TAB PO SCH (10:09)
[2020-11-12] MEDS: MAGNESIUM OXIDE 400 MG TAB PO SCH (10:09)
[2020-11-12] MEDS: amLODIPine 10 MG TAB PO SCH (10:09)
--- NOTE | 2020-11-12 11:16 | P.CONS ---
History of Present Illness - Reason for Consult Consult date: 11/12/20 known Requesting physician: David Diaz - Chief Complaint abd pain post prandial - History of Present Illness Ms. Morel is a very pleasant -[place] female, initially hospitalized in mid 09/09 because of an allergic reaction. During that admission she was found to have elevated liver enzymes. Abd US 09/04/20 showed common bile duct and intrahepatic duct dilatation with possible mass in the pancreatic head. This led to GI consult and MRCP. This confirmed mild to moderate central intrahepatic along with extrahepatic biliary dilatation. There was abrupt cutoff seen in the region of the pancreatic head. There was suggestion of a pancreatic head mass measuring 3.8 x 3.2 cm. There appeared to be generalized atrophy and ductal dilatation in the pancreas. There was no suspicious adenopathy or liver lesions seen. GI recommended a referral to [facility] for endoscopic ultrasound. Prior to that she was admitted to the hospital for increasing abdominal pain, and decreased appetite on 09/24/20. During that admission bilirubin was 2.4, AST 501, ALT 462 and alkaline phosphatase 778. She was transferred to [facility] where she underwent an EUS on 10/02/20. 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 Was admitted to the hospital in the week of 10/29/20 with increased abdominal pain and fever. This was controlled with adjustment of pain medications. A celiac plexus block was planned but put on hold due to the fever. Repeat imaging showed no recurrent biliary obstruction. PET 11/01/20 showed no evidence of metastatic disease. She is due to see Dr. Rock to discuss surgery. Her abd pain post prandial was so severe that she could not stand it anymore. She states she was too afraid to use the fentanyl that was prescribed when she was last discharged. She has not been seen about celiac nerve block. 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, head tremor History of Any Multi-Drug Resistant Organisms: None Reported Past Surgical History: Orthopedic Surgery, Tubal Ligation Additional Past Surgical History / Comment(s): 2 pins right hip-dislocated 1976 Past Anesthesia/Blood Transfusion Reactions: No Reported Reaction Past Psychological History: Anxiety, Depression Smoking Status: Current every day smoker Past Alcohol Use History: Daily Past Drug Use History: None Reported - Past Family History Mother Family Medical History: Liver Disease Father Family Medical History: Cancer Additional Family Medical History / Comment(s): Lung and liver cancer. Medications and Allergies Home Medications Medication Instructions Recorded Confirmed Type amLODIPine BESYLATE/BENAZEPRIL 1 cap PO DAILY 09/25/13 11/11/20 History [amLODIPine BESYLATE/BENAZEPRIL 10-40 MG] Gabapentin [Neurontin] 300 mg PO BID PRN 12/06/16 11/11/20 History Albuterol Sulfate [Albuterol 2 puff INHALATION RT-Q4H PRN 09/04/20 11/11/20 History Sulfate Hfa] Omeprazole 40 mg PO DAILY 09/24/20 11/11/20 History Acetaminophen Tab [Tylenol] 650 mg PO Q4HR PRN tab 10/31/20 11/11/20 Rx Amoxic-Pot Clav 875-125Mg 1 tab PO Q12HR 10 Days #20 tab 10/31/20 11/11/20 Rx [Augmentin 875-125] Magnesium Oxide 400 mg PO DAILY #30 tablet 10/31/20 11/11/20 Rx Potassium Chloride [Potassium 10 meq PO DAILY 30 Days #30 10/31/20 11/11/20 Rx Chloride ER] tablet.er Famotidine [Pepcid] 40 mg PO BID #60 ml 11/12/20 Rx Lipase/Protease/Amylase [Zenpep Dr 1 cap PO AC-TID #50 cap 11/12/20 Rx 5,000 Unit Capsule] traMADol HCL 50 mg PO Q6H PRN #120 tablet 11/12/20 Rx Allergies Allergy/AdvReac Type Severity Reaction Status Date / Time erythromycin base AdvReac Nausea Verified 11/11/20 23:21 [Erythromycin Base] Physical Exam Vitals: Vital Signs Temp Pulse Resp BP Pulse Ox 11/12/20 05:03 78 16 142/82 98 11/11/20 21:07 98.2 F 80 16 155/92 100 Intake and Output 11/11/20 11/12/20 11/12/20 22:59 06:59 14:59 Other: Weight 49.895 kg - Constitutional General appearance: cooperative, mild distress, thin - EENT Eyes: anicteric sclerae, EOMI, poor dentition ENT: hearing grossly normal - Neck Neck: no lymphadenopathy - Respiratory Respiratory: bilateral: CTA - Cardiovascular Rhythm: regular Heart sounds: normal: S1, S2 Abnormal Heart Sounds: no systolic murmur, no diastolic murmur, no rub, no S3 Gallop, no S4 Gallop, no click, no other leg Peripheral Edema: bilateral: None - Gastrointestinal General gastrointestinal: no absent bowel sounds, no decreased bowel sounds, no distended, no hepatomegaly, no hyperactive bowel sounds, normal bowel sounds, no organomegaly, no rigid, no scaphoid, soft, no splenomegaly, tenderness, no umbilical hernia, no ventral hernia - Neurologic Neurologic: CNII-XII intact - Musculoskeletal Musculoskeletal: strength equal bilaterally - Psychiatric Psychiatric: A&O x's 3, appropriate affect, intact judgment & insight Results CBC & Chem 7: 11/12/20 03:34 11/12/20 03:34 Labs: Abnormal Lab Results - Last 24 Hours (Table) 11/11/20 11/11/20 11/11/20 Range/Units 22:27 22:27 22:27 WBC 13.6 H (3.8-10.6) k/uL RBC 3.66 L (3.80-5.40) m/uL Hgb 10.6 L (11.4-16.0) gm/dL Hct 32.2 L (34.0-46.0) % Plt Count 475 H (150-450) k/uL Neutrophils # 9.7 H (1.3-7.7) k/uL Sodium 132 L (137-145) mmol/L Carbon Dioxide (22-30) mmol/L Creatinine 0.45 L (0.52-1.04) mg/dL Glucose 166 H (74-99) mg/dL Alkaline Phosphatase 256 H (38-126) U/L Total Protein 6.0 L (6.3-8.2) g/dL Albumin 3.0 L (3.5-5.0) g/dL Urine Glucose (UA) 3+ H (Negative) 11/12/20 11/12/20 Range/Units 03:34 03:34 WBC (3.8-10.6) k/uL RBC 3.19 L (3.80-5.40) m/uL Hgb 9.2 L (11.4-16.0) gm/dL Hct 28.9 L (34.0-46.0) % Plt Count (150-450) k/uL Neutrophils # (1.3-7.7) k/uL Sodium 131 L (137-145) mmol/L Carbon Dioxide 21 L (22-30) mmol/L Creatinine 0.51 L (0.52-1.04) mg/dL Glucose 121 H (74-99) mg/dL Alkaline Phosphatase 192 H (38-126) U/L Total Protein 5.2 L (6.3-8.2) g/dL Albumin 2.5 L (3.5-5.0) g/dL Urine Glucose (UA) (Negative) CT scan - abdomen: report reviewed CT scan - pelvis: report reviewed Assessment and Plan (1) Abdominal pain Current Visit: Yes Status: Acute Priority: High Code(s): R10.9 - UNSPECIFIED ABDOMINAL PAIN SNOMED Code(s): 26177569 (2) Pancreatic cancer Current Visit: Yes Status: Acute Priority: High Code(s): C25.9 - MALIGNANT NEOPLASM OF PANCREAS, UNSPECIFIED SNOMED Code(s): 641879360 Plan: Pt is a surgical candidate for her pancreatic adenocarcinoma, needs to go back to Dr. Pranav CABALLERO and get surgery scheduled Pt is very frightened of pain meds, she did NOT use the fentanyl that was prescribed to her when she left after last visit. She wants to try her tramadol, so, frequency was increased. WIll see how she does Adjusted H2 and cont PPI Added pancreatic enzymes AC. Will recheck pt in AM Called pt pharmacy to report changes in meds Spoke to Attending [employer] OPERATOR MAINTAINER about case May consider Pain mgmt consult for celiac nerve block while in hospital Doctor attests: I performed a history and physical examination of this patient, developed impression and plan of care, discussed with dictator. I agree with dictators note, documented as a scribe. Time with Patient: Greater than 30
[2020-11-12] MEDS: traMADol 50 MG TAB PO SCH ×4 (11:52→21:30)
[2020-11-12] MEDS: LIPASE 5,000/PROTEASE 17,000/AMYLASE 24,000 PO SCH ×2 (11:53→16:23)
[2020-11-12] MEDS: FAMOTIDINE 20 MG TAB PO SCH (21:30)
[2020-11-13 04:44] VITALS: TEMP 98.5
[2020-11-13] MEDS ORDERED: PANTOPRAZOLE 40 MG TABLET PO SCH (07:30)
[2020-11-13] MEDS: FAMOTIDINE 20 MG TAB PO SCH (08:09)
[2020-11-13] MEDS: LIPASE 5,000/PROTEASE 17,000/AMYLASE 24,000 PO SCH ×2 (08:09→12:51)
[2020-11-13] MEDS: MAGNESIUM OXIDE 400 MG TAB PO SCH (08:10)
[2020-11-13] MEDS: lisinopriL 20 MG TAB PO SCH (08:10)
[2020-11-13] MEDS: traMADol 50 MG TAB PO SCH ×2 (08:10→12:51)
[2020-11-13] MEDS: amLODIPine 10 MG TAB PO SCH (08:10)
[2020-11-13 13:56] VITALS: BMI 17.2
--- NOTE | 2020-11-13 15:02 | P.PN ---
Subjective Progress Note Date: 11/13/20 Principal diagnosis: Intractable postprandial abdominal pain, pancreatic Adenocarcinoma, pending surgery In follow-up today patient has tried the adjustments to her medications, she is feeling pretty decent this morning, pain is fairly well-controlled/tolerable. She is much more calm this morning. Objective - Vital Signs Vital signs: Vital Signs Temp 98.5 F 11/13/20 04:42 Pulse 56 L 11/13/20 04:42 Resp 16 11/13/20 04:42 BP 154/72 11/13/20 04:42 Pulse Ox 100 11/13/20 04:42 Intake & Output 11/12/20 11/13/20 11/13/20 18:59 06:59 18:59 Intake Total 750 Balance 750 Weight 49.895 kg 49.895 kg Intake: Intake, IV Titration 750 Amount Sodium Chloride 0.9% 1, 750 000 ml @ 75 mls/hr IV . [id number] JUAN Rx#:[id number] Other: Voiding Method Toilet # Voids 2 - Constitutional General appearance: Present: cooperative, no acute distress, thin - EENT Eyes: Present: anicteric sclerae, EOMI ENT: Present: hearing grossly normal - Respiratory Respiratory: bilateral: CTA - Cardiovascular Rhythm: regular Heart sounds: normal: S1, S2 Abnormal Heart Sounds: Absent: systolic murmur, diastolic murmur, rub, S3 Gallop, S4 Gallop, click, other - Peripheral edema leg Peripheral Edema: bilateral: None - Gastrointestinal General gastrointestinal: Present: normal bowel sounds, soft, tenderness (Upper quadrants) - Neurologic Neurologic: Present: CNII-XII intact - Musculoskeletal Musculoskeletal: Present: strength equal bilaterally - Psychiatric Psychiatric: Present: A&O x's 3, appropriate affect, intact judgment & insight - Labs CBC & Chem 7: 11/12/20 03:34 11/12/20 03:34 Assessment and Plan (1) Abdominal pain Current Visit: Yes Status: Acute Priority: High Code(s): R10.9 - UNSPECIFIED ABDOMINAL PAIN SNOMED Code(s): 10973806 (2) Pancreatic cancer Current Visit: Yes Status: Acute Priority: High Code(s): C25.9 - MALIGNANT NEOPLASM OF PANCREAS, UNSPECIFIED SNOMED Code(s): 723779838 Plan: Pt is a surgical candidate for her pancreatic adenocarcinoma, needs to go back to Dr. Pranav CABALLERO and get surgery scheduled-She understands this. Social work provided patient with information from the [employer] for assistance with rides Frequency of tramadol was increased, pancreatic enzymes before food, adjusted H2 and PPI. Patient feels that this has decreased her discomfort. She just used an enzyme and ate some breakfast and so far, still feels good. May consider Pain mgmt consult for celiac nerve block if pain cannot stay controlled with medicine
[2020-11-13 15:33] VITALS: BP 156/99; PULSE 58; RESP 17
--- NOTE | 2020-11-14 00:28 | P.DS ---
Providers Date of admission: 11/11/20 23:29 Attending physician: Yvrose Brito Consults: 11/11/20 23:29 Consult Physician Routine Consulting Provider: Anand Muller Consult Reason/Comments: known Do you want consulting provider notified?: Yes 11/12/20 13:19 Consult Physician Urgent Consulting Provider: Krystle Quiles Consult Reason/Comments: abd pain with eating Do you want consulting provider notified?: Yes Primary care physician: Sheron Lorenz Hospital Course: Diagnoses: Episodic epigastric Abdominal pain and tenderness especially with meals, associated with her recent diagnosis of pancreatic cancer, improved with increasing dose of Ultram Pancreatic cancer Chronic pancreatitis Mild calories protein malnutrition Hypertension Hyperlipidemia Diabetes mellitus Osteoarthritis Chronic back pain with sciatic Hospital course: This is a pleasant 65 years old -[place] female with past medical history of pancreatic cancer, abdominal pain, diabetes mellitus, hypertension, hyperlipidemia, osteoarthritis, chronic back pain with sciatica. Presents with severe epigastric pain that is been gone for a while but felt worse yesterday with meals. She vomited a few days earlier but has good bowel movement. CT of the abdomen and pelvis with contrast: Dilated pancreatic duct at 11 mm and some bulkiness of the pancreatic head adjacent to the duodenum. There is increased air reflux into the biliary tree. Extensive pancreatic calcification consistent with chronic pancreatitis. Enlargement of the pancreatic head and change compared to old exam. Patient was evaluated by oncology service, it looks like her pain is due to poorly controlled cancer pain. Her pain felt better after increasing dose of Ultram, she tolerates diet well today. Her pain is down to 3/10 in severity with significant improvement. Due to her cancer patient expected to have some degree of low-grade pain, patient is counseled and she agrees Patient denies any other symptoms prior to discharge Pancreatic enzyme is provided for her as well as PPI and Pepcid Patient has been evaluated by oncology service who cleared her for discharge Problems and management plan were discussed with the patient and he verbalized understanding and acceptance Patient was found stable and can be discharged home however he needs follow-up as an outpatient. Patient was instructed to follow up with PCP Dr. stallings within one week and patient agrees with appointment made for her on 11/19 Also patient was instructed to follow up with Dr. Muller and she agrees with the appointments made for her on 12/10 It also was instructed to follow up with her oncologist at [facility], appointment yesterday and today, she was instructed to call and reschedule and she agrees, social research assistant help her also with transportation prior to discharge Physical exam Gen: patient is a AAOx3, no distress CVS: S1-S2, RRR, no murmur Lungs: B/L CTA, no wheezing Abdomen: soft, no distention, no tenderness, positive bowel sounds Extremity: no leg edema or induration Time spent more than 35 minutes Patient Condition at Discharge: Fair Plan - Discharge Summary Discharge Rx Participant: Yes New Discharge Prescriptions: New Famotidine [Pepcid] 40 mg PO BID #60 ml traMADol HCL 50 mg PO Q6H PRN #120 tablet PRN Reason: Pain Lipase/Protease/Amylase [Zenpep Dr 5,000 Unit Capsule] 1 cap PO AC-TID #50 cap Continue amLODIPine BESYLATE/BENAZEPRIL [amLODIPine BESYLATE/BENAZEPRIL 10-40 MG] 1 cap PO DAILY Gabapentin [Neurontin] 300 mg PO BID PRN PRN Reason: Pain Albuterol Sulfate [Albuterol Sulfate Hfa] 2 puff INHALATION RT-Q4H PRN PRN Reason: Shortness Of Breath Omeprazole 40 mg PO DAILY Acetaminophen Tab [Tylenol] 650 mg PO Q4HR PRN tab PRN Reason: Fever And/ Or Pain Magnesium Oxide 400 mg PO DAILY #30 tablet Potassium Chloride [Potassium Chloride ER] 10 meq PO DAILY 30 Days #30 tablet.er Discontinued Amoxic-Pot Clav 875-125Mg [Augmentin 875-125] 1 tab PO Q12HR 10 Days #20 tab Famotidine [Pepcid] 20 mg PO BID Discharge Medication List amLODIPine BESYLATE/BENAZEPRIL [amLODIPine BESYLATE/BENAZEPRIL 10-40 MG] 1 cap PO DAILY 09/25/13 [History] Gabapentin [Neurontin] 300 mg PO BID PRN 12/06/16 [History] Albuterol Sulfate [Albuterol Sulfate Hfa] 2 puff INHALATION RT-Q4H PRN 09/04/20 [History] Omeprazole 40 mg PO DAILY 09/24/20 [History] Acetaminophen Tab [Tylenol] 650 mg PO Q4HR PRN tab 10/31/20 [Rx] Magnesium Oxide 400 mg PO DAILY #30 tablet 10/31/20 [Rx] Potassium Chloride [Potassium Chloride ER] 10 meq PO DAILY 30 Days #30 tablet.er 10/31/20 [Rx] Famotidine [Pepcid] 40 mg PO BID #60 ml 11/12/20 [Rx] Lipase/Protease/Amylase [Zenpep Dr 5,000 Unit Capsule] 1 cap PO AC-TID #50 cap 11/12/20 [Rx] traMADol HCL 50 mg PO Q6H PRN #120 tablet 11/12/20 [Rx] Follow up Appointment(s)/Referral(s): Anand Muller MD [STAFF PHYSICIAN] - 12/10/20 10:45 am Sheron Lorenz MD [Primary Care Provider] - 11/19/20 2:00 pm Patient Instructions/Handouts: Acute Abdominal Pain (DC) Activity/Diet/Wound Care/Special Instructions: Increased pepcid to 40mg BID. Increased tramadol 50mg frequency to 1 tab PO Q 6 hours-Rx called to [place] pharmacy. Zenpep Erx to [place] pharmacy. Dev Colby Discharge Disposition: HOME SELF-CARE
== END 2020-11-13 16:35 | disposition home or self-care (01) ==
LOC: EC 21:05 → 5NMEDONC 23:29
PROVIDERS: ADMIT Hospitalist; ATTEND Hospitalist
DX: G89.3 Neoplasm related pain (acute) (chronic) (principal); C25.9 Malignant neoplasm of pancreas, unspecified; K86.1 Other chronic pancreatitis; E46 Unspecified protein-calorie malnutrition; I10 Essential (primary) hypertension; E78.5 Hyperlipidemia, unspecified; E11.9 Type 2 diabetes mellitus without complications; M19.90 Unspecified osteoarthritis, unspecified site; M54.40 Lumbago with sciatica, unspecified side; M81.0 Age-related osteoporosis without current pathological fracture; F17.200 Nicotine dependence, unspecified, uncomplicated; R25.1 Tremor, unspecified; F32.9 Major depressive disorder, single episode, unspecified; H57.9 Unspecified disorder of eye and adnexa; F41.9 Anxiety disorder, unspecified; Z87.09 Personal history of other diseases of the respiratory system; Z79.899 Other long term (current) drug therapy; Z88.1 Allergy status to other antibiotic agents; Z80.0 Family history of malignant neoplasm of digestive organs; Z83.79 Family history of other diseases of the digestive system; Z80.1 Family history of malignant neoplasm of trachea, bronchus and lung
CPT/HCPCS: 96361 ×4; 96374; 96375; 99285; 36415; 80053 ×2; 82150; 82550; 83690; 83735 ×2; 84100 ×2; 85025 ×2; 81003; 74177; G0378 ×3; J2270; J2405; C9113 ×2; Q9967

== ENCOUNTER → 2020-11-21 | Outpatient (CLI) | payer MEDICARE, OTHER ==
[2020-11-21 15:03] LABS: Basophils # (A) 0.04 X 10*3/uL (0.00-0.10); Basophils % (A) 0.4 %; Eosinophils # (A) 0.08 X 10*3/uL (0.04-0.35); Eosinophils % (A) 0.7 %; HCT 32.8 % (37.2-46.3); HGB 10.5 g/dL (12.0-15.0); Lymphocytes # (A) 1.28 X 10*3/uL (0.90-5.00); Lymphocytes % (A) 11.3 %; MCV 84.3 fL (80.0-97.0); Mean Platelet Volume 10.5 fL (9.5-12.2); Monocytes # (A) 1.21 X 10*3/uL (0.20-1.00); Monocytes % (A) 10.7 %; Neutrophils # (A) 8.63 X 10*3/uL (1.80-7.70); Neutrophils % (A) 76.5 %; Platelet Count 450 X 10*3/uL (140-440); RBC 3.89 X 10*6/uL (4.10-5.20); RDW 14.1 % (11.5-14.5); WBC 11.29 X 10*3/uL (4.50-10.00)
[2020-11-22 03:10] LABS: % Iron Saturation 6.36 (12.00-45.00); African American GFR (CKD) 117.7 (60.0-200.0); Albumin 3.1 g/dL (3.80-4.90); Albumin/Globulin Ratio 1.19 (1.60-3.17); Anion Gap 9.6 mmol/L (4.00-12.00); Calcium 8.4 mg/dL (8.7-10.3); Carbon Dioxide 21.4 mmol/L (21.6-31.8); Ferritin 592.3 ng/mL (10.0-291.0); Globulin 2.6 g/dL (1.6-3.3); Non-African American GFR(CKD) 101.6 (60.0-200.0); Potassium 4.3 mmol/L (3.5-5.5); Total Bilirubin 1.1 mg/dL (0.2-1.2); Total Protein 5.7 g/dL (6.2-8.2)
== END | disposition home or self-care (01) ==
LOC: LABWHC1 09:14
PROVIDERS: ATTEND Family Medicine
DX: C25.0 Malignant neoplasm of head of pancreas (principal); I10 Essential (primary) hypertension; D64.9 Anemia, unspecified; E11.9 Type 2 diabetes mellitus without complications
CPT/HCPCS: 36415; 80053; 82150; 82728; 83540; 83550; 83690; 85025

== ENCOUNTER 2020-11-24 19:22 | Emergency (ER) | payer MEDICARE, OTHER ==
[2020-11-24 19:33] VITALS: RESP 18
[2020-11-24] MEDS ORDERED: MORPHINE SULFATE 4 MG/ML SYRINGE IV STA (19:44)
[2020-11-24] MEDS ORDERED: SODIUM CHLORIDE 0.9% 1,000 ML IV STA (19:44)
[2020-11-24] MEDS ORDERED: ONDANSETRON 4 MG/2 ML VIAL IVP STA (19:44)
[2020-11-24 20:18] LABS: Basophils # (A) 0.1 k/uL (0-0.2); Basophils % (A) 1 %; Eosinophils # (A) 0.2 k/uL (0-0.7); Eosinophils % (A) 2 %; HCT 34.6 % (34.0-46.0); HGB 11.6 gm/dL (11.4-16.0); Lymphocytes # (A) 1.8 k/uL (1.0-4.8); Lymphocytes % (A) 17 %; MCH 28.4 pg (25.0-35.0); MCHC 33.4 g/dL (31.0-37.0); Mean Platelet Volume 7.2; Monocytes # (A) 0.6 k/uL (0-1.0); Monocytes % (A) 6 %; Neutrophils # (A) 7.6 k/uL (1.3-7.7); Neutrophils % (A) 72 %; Platelet Count 654 k/uL (150-450); RBC 4.07 m/uL (3.80-5.40); RDW 14.1 % (11.5-15.5); WBC 10.5 k/uL (3.8-10.6)
[2020-11-24 20:27] LABS: ALT 19 U/L (4-34); African American GFR (CKD) >90 (>60 ml/min/1.73 sqM); Amylase 38 U/L (30-110); Anion Gap 8 mmol/L; Blood Urea Nitrogen 5 mg/dL (7-17); Calcium 8.7 mg/dL (8.4-10.2); Carbon Dioxide 21 mmol/L (22-30); Chloride 97 mmol/L (98-107); Glucose 164 mg/dL (74-99); Lipase 51 U/L (23-300); Non-African American GFR(CKD) >90 (>60 ml/min/1.73 sqM); Sodium 126 mmol/L (137-145); Total Bilirubin 1.1 mg/dL (0.2-1.3)
[2020-11-24 20:29] LABS: AST 48 U/L (14-36); Alkaline Phosphatase 253 U/L (38-126); Potassium 4.7 mmol/L (3.5-5.1); Total Protein 6.3 g/dL (6.3-8.2)
--- NOTE | 2020-11-24 20:38 | XR ---
EXAMINATION TYPE: XR KUB DATE OF EXAM: 11/24/2020 COMPARISON: Today HISTORY: Abdominal pain TECHNIQUE: 2 views upright FINDINGS: There is no sign of intestinal obstruction or pneumoperitoneum. Fecal pattern is normal. Th ere is stent over the right upper quadrant. There is right hip surgery. Lung bases are clear. There i s no pleural effusion. IMPRESSION: Nonacute abdomen. No change compared to exam earlier today.
--- NOTE | 2020-11-24 22:13 | ED ---
Abdominal Pain HPI - General Chief Complaint: Abdominal Pain Stated Complaint: vomiting Time Seen by Provider: 11/24/20 19:36 Source: patient, RN notes reviewed Mode of arrival: ambulatory Limitations: no limitations - History of Present Illness Initial Comments: Patient is a 65-year-old female that presents to emergency department complaining of abdominal pain. She has a past medical history of pancreatic cancer. She notes that she has not really keep anything down for the past several days. She notes that she wants something for the pain at this time. She was otherwise a well-appearing 65-year-old female she denied any chest pain shortness of breath headache diarrhea constipation fever fatigue chills. - Related Data Home Medications Medication Instructions Recorded Confirmed amLODIPine BESYLATE/BENAZEPRIL 1 cap PO DAILY 09/25/13 11/24/20 [amLODIPine BESYLATE/BENAZEPRIL 10-40 MG] Gabapentin [Neurontin] 300 mg PO BID PRN 12/06/16 11/24/20 Albuterol Sulfate [Albuterol 2 puff INHALATION RT-Q4H PRN 09/04/20 11/24/20 Sulfate Hfa] Omeprazole 40 mg PO DAILY 09/24/20 11/24/20 Famotidine 40 mg PO BID 11/24/20 11/24/20 Lipase/Protease/Amylase [Zenpep Dr 1 cap PO 5XD PRN 11/24/20 11/24/20 5,000 Unit Capsule] Previous Rx's Medication Instructions Recorded Acetaminophen Tab [Tylenol] 650 mg PO Q4HR PRN tab 10/31/20 Magnesium Oxide 400 mg PO DAILY #30 tablet 10/31/20 Potassium Chloride [Potassium 10 meq PO DAILY 30 Days #30 10/31/20 Chloride ER] tablet.er traMADol HCL 50 mg PO Q6H PRN #120 tablet 11/12/20 Allergies Allergy/AdvReac Type Severity Reaction Status Date / Time erythromycin base AdvReac Nausea Verified 11/24/20 20:38 [Erythromycin Base] Review of Systems ROS Statement: Those systems with pertinent positive or pertinent negative responses have been documented in the HPI. ROS Other: All systems not noted in ROS Statement are negative. 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, head tremor History of Any Multi-Drug Resistant Organisms: None Reported Past Surgical History: Orthopedic Surgery, Tubal Ligation Additional Past Surgical History / Comment(s): 2 pins right hip-dislocated 1975 Past Anesthesia/Blood Transfusion Reactions: No Reported Reaction Past Psychological History: Anxiety, Depression Smoking Status: Current every day smoker Past Alcohol Use History: Daily Past Drug Use History: None Reported - Past Family History Mother Family Medical History: Liver Disease Father Family Medical History: Cancer Additional Family Medical History / Comment(s): Lung and liver cancer. General Exam Limitations: no limitations General appearance: alert, in no apparent distress, other (Underweight) Head exam: Present: atraumatic, normocephalic, normal inspection Eye exam: Present: normal appearance, PERRL, EOMI. Absent: scleral icterus, conjunctival injection, periorbital swelling Neck exam: Present: normal inspection Respiratory exam: Present: normal lung sounds bilaterally. Absent: respiratory distress, wheezes, rales, rhonchi, stridor Cardiovascular Exam: Present: regular rate, normal rhythm, normal heart sounds. Absent: systolic murmur, diastolic murmur, rubs, gallop, clicks GI/Abdominal exam: Present: soft, normal bowel sounds. Absent: distended, tenderness, guarding, rebound, rigid Extremities exam: Present: normal inspection, full ROM, normal capillary refill. Absent: tenderness, pedal edema, joint swelling, calf tenderness Neurological exam: Present: alert, oriented X3 Psychiatric exam: Present: normal affect, normal mood Skin exam: Present: warm, dry, intact, normal color. Absent: rash Course Vital Signs 11/24/20 19:30 Temperature 97.9 F Pulse Rate 55 L Respiratory 18 Rate Blood Pressure 134/77 O2 Sat by Pulse 97 Oximetry Medical Decision Making - Medical Decision Making 65-year-old female complaining of abdominal pain with a history of pancreatic c ancer. Labs, 1 L normal saline, 4 mg of morphine, 4 mg of Zofran ordered. Labs unremarkable from baseline. Patient states she is feeling better like to go home. Case discussed with Dr. Diaz, patient can discharge home. - Lab Data Result diagrams: 11/24/20 20:02 11/24/20 20:02 Lab Results 11/24/20 11/24/20 11/24/20 Range/Units 20:02 20:02 20:02 WBC 10.5 (3.8-10.6) k/uL RBC 4.07 (3.80-5.40) m/uL Hgb 11.6 (11.4-16.0) gm/dL Hct 34.6 (34.0-46.0) % MCV 85.0 D (80.0-100.0) fL MCH 28.4 (25.0-35.0) pg MCHC 33.4 (31.0-37.0) g/dL RDW 14.1 (11.5-15.5) % Plt Count 654 H (150-450) k/uL MPV 7.2 Neutrophils % 72 % Lymphocytes % 17 % Monocytes % 6 % Eosinophils % 2 % Basophils % 1 % Neutrophils # 7.6 (1.3-7.7) k/uL Lymphocytes # 1.8 (1.0-4.8) k/uL Monocytes # 0.6 (0-1.0) k/uL Eosinophils # 0.2 (0-0.7) k/uL Basophils # 0.1 (0-0.2) k/uL Sodium 126 L (137-145) mmol/L Potassium 4.7 (3.5-5.1) mmol/L Chloride 97 L (98-107) mmol/L Carbon Dioxide 21 L (22-30) mmol/L Anion Gap 8 mmol/L BUN 5 L (7-17) mg/dL Creatinine 0.38 L (0.52-1.04) mg/dL Est GFR (CKD-EPI)AfAm >90 (>60 ml/min/1.73 sqM) Est GFR (CKD-EPI)NonAf >90 (>60 ml/min/1.73 sqM) Glucose 164 H (74-99) mg/dL Plasma Lactic Acid Zen 1.1 (0.7-2.0) mmol/L Calcium 8.7 (8.4-10.2) mg/dL Total Bilirubin 1.1 (0.2-1.3) mg/dL AST 48 H (14-36) U/L ALT 19 (4-34) U/L Alkaline Phosphatase 253 H (38-126) U/L Total Protein 6.3 (6.3-8.2) g/dL Albumin 3.0 L (3.5-5.0) g/dL Amylase 38 (30-110) U/L Lipase 51 (23-300) U/L - Radiology Data Radiology results: report reviewed, image reviewed KUB: Nonacute abdomen. No change compared to exam earlier. Disposition Clinical Impression: Abdominal pain, Hyponatremia Disposition: HOME SELF-CARE Condition: Stable Instructions (If sedation given, give patient instructions): Abdominal Pain (ED) Additional Instructions: Please return to the Emergency Department if symptoms worsen or any other concerns. Follow up with cancer specialist as planned. Is patient prescribed a controlled substance at d/c from ED?: No Referrals: Sheron Lorenz MD [Primary Care Provider] - 1-2 days Time of Disposition: 22:13
[2020-11-24 22:16] VITALS: BP 139/83; PULSE 70
[2020-11-24 22:24] VITALS: TEMP 99
[2020-11-24 23:26] LABS: Appearance,Urine Cloudy (Clear); Bacteria,Urine Rare /hpf; Bilirubin,Urine Negative (Negative); Blood,Urine Negative (Negative); Color,Urine Yellow; Glucose,Urine (UA) Negative (Negative); Hyaline Casts,Urine 10 /lpf (0-2); Ketones,Urine Negative (Negative); Leukocyte Esterase,Urine Trace (Negative); Mucus,Urine Few /hpf; Nitrite,Urine Negative (Negative); PH, Urine 6.5 (5.0-8.0); Protein,Urine Trace (Negative); RBC,Urine <1 /hpf (0-5); Specific Gravity,Urine 1.015 (1.001-1.035); Squamous Epithelial Cell,Urine 5 /hpf (0-4); WBC,Urine 4 /hpf (0-5)
== END 2020-11-24 22:24 | disposition home or self-care (01) ==
LOC: EC 19:22
DX: R10.9 Unspecified abdominal pain (principal); E87.1 Hypo-osmolality and hyponatremia; R11.0 Nausea; E11.9 Type 2 diabetes mellitus without complications; I10 Essential (primary) hypertension; F17.200 Nicotine dependence, unspecified, uncomplicated; Z79.899 Other long term (current) drug therapy; Z88.1 Allergy status to other antibiotic agents
CPT/HCPCS: 36415; 80053; 82150; 83605; 83690; 85025; 81001; 74018; 99284; 96374; 96375; 96361; J2270; J2405

== ENCOUNTER 2020-11-26 23:05 | Emergency (ER) | payer MEDICARE, OTHER ==
[2020-11-26] MEDS ORDERED: HYDROmorphone 0.5 MG/0.5 ML SYRINGE IVP STA (23:38)
[2020-11-26] MEDS ORDERED: ONDANSETRON 4 MG/2 ML VIAL IVP STA (23:38)
[2020-11-26] MEDS ORDERED: SODIUM CHLORIDE 0.9% 1,000 ML IV STA (23:38)
--- NOTE | 2020-11-26 23:52 | ED ---
General Adult HPI - General Chief complaint: Recheck/Abnormal Lab/Rx Stated complaint: Abd Pain Time Seen by Provider: 11/26/20 23:32 Source: patient, EMS, RN notes reviewed Mode of arrival: EMS Limitations: no limitations - History of Present Illness Initial comments: This is a 65-year-old female presents emergency department to complaint of abdominal pain. Patient states that he occasionally has increasing pain. Patient is not on chemotherapy or radiation currently. She is scheduled for surgery. Patient has occasional nausea vomiting. Patient was recently seen here for some pain. Patient is currently taking tramadol at home which she states is not helping enough. No other new complaints of chest pain or shortness breath. - Related Data Home Medications Medication Instructions Recorded Confirmed amLODIPine BESYLATE/BENAZEPRIL 1 cap PO DAILY 09/25/13 11/24/20 [amLODIPine BESYLATE/BENAZEPRIL 10-40 MG] Gabapentin [Neurontin] 300 mg PO BID PRN 12/06/16 11/24/20 Albuterol Sulfate [Albuterol 2 puff INHALATION RT-Q4H PRN 09/04/20 11/24/20 Sulfate Hfa] Omeprazole 40 mg PO DAILY 09/24/20 11/24/20 Famotidine 40 mg PO BID 11/24/20 11/24/20 Lipase/Protease/Amylase [Zenpep Dr 1 cap PO 5XD PRN 11/24/20 11/24/20 5,000 Unit Capsule] Previous Rx's Medication Instructions Recorded Acetaminophen Tab [Tylenol] 650 mg PO Q4HR PRN tab 10/31/20 Magnesium Oxide 400 mg PO DAILY #30 tablet 10/31/20 Potassium Chloride [Potassium 10 meq PO DAILY 30 Days #30 10/31/20 Chloride ER] tablet.er traMADol HCL 50 mg PO Q6H PRN #120 tablet 11/12/20 Allergies Allergy/AdvReac Type Severity Reaction Status Date / Time erythromycin base AdvReac Nausea Verified 11/24/20 20:38 [Erythromycin Base] Review of Systems ROS Statement: Those systems with pertinent positive or pertinent negative responses have been documented in the HPI. ROS Other: All systems not noted in ROS Statement are negative. 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, head tremor History of Any Multi-Drug Resistant Organisms: None Reported Past Surgical History: Orthopedic Surgery, Tubal Ligation Additional Past Surgical History / Comment(s): 2 pins right hip-dislocated 1975 Past Anesthesia/Blood Transfusion Reactions: No Reported Reaction Past Psychological History: Anxiety, Depression Smoking Status: Current every day smoker Past Alcohol Use History: Daily Past Drug Use History: None Reported - Past Family History Mother Family Medical History: Liver Disease Father Family Medical History: Cancer Additional Family Medical History / Comment(s): Lung and liver cancer. General Exam Limitations: no limitations General appearance: alert, in no apparent distress Head exam: Present: atraumatic, normocephalic, normal inspection Neck exam: Present: normal inspection. Absent: tenderness, meningismus, lymphadenopathy Respiratory exam: Present: normal lung sounds bilaterally. Absent: respiratory distress, wheezes, rales, rhonchi, stridor Cardiovascular Exam: Present: regular rate, normal rhythm, normal heart sounds. Absent: systolic murmur, diastolic murmur, rubs, gallop, clicks GI/Abdominal exam: Present: soft, tenderness, normal bowel sounds. Absent: distended, guarding, rebound, rigid Back exam: Absent: CVA tenderness (R), CVA tenderness (L) Course Vital Signs 11/26/20 11/27/20 23:14 01:25 Temperature 98.3 F Pulse Rate 50 L 70 Respiratory 16 18 Rate Blood Pressure 158/91 160/78 O2 Sat by Pulse 100 100 Oximetry Medical Decision Making - Medical Decision Making Patient reevaluated after does pain meds that she feels greatly improved. She is up-to-date on her labs that she does have some mild hyponatremia though it is essentially unchanged from prior lab emergency from a few days ago. Patient will be discharged in stable condition will follow-up with her PCP for further pain control return for any worsening changes symptoms. - Lab Data Result diagrams: 11/26/20 23:52 11/26/20 23:52 Lab Results 11/26/20 11/26/20 11/26/20 Range/Units 23:52 23:52 23:56 WBC 13.3 H (3.8-10.6) k/uL RBC 3.81 (3.80-5.40) m/uL Hgb 10.6 L (11.4-16.0) gm/dL Hct 31.8 L (34.0-46.0) % MCV 83.4 (80.0-100.0) fL MCH 27.8 (25.0-35.0) pg MCHC 33.3 (31.0-37.0) g/dL RDW 13.7 (11.5-15.5) % Plt Count 611 H (150-450) k/uL MPV 7.6 Neutrophils % 79 % Lymphocytes % 11 % Monocytes % 7 % Eosinophils % 2 % Basophils % 0 % Neutrophils # 10.4 H (1.3-7.7) k/uL Lymphocytes # 1.5 (1.0-4.8) k/uL Monocytes # 1.0 (0-1.0) k/uL Eosinophils # 0.2 (0-0.7) k/uL Basophils # 0.0 (0-0.2) k/uL Sodium 125 L (137-145) mmol/L Potassium 3.6 (3.5-5.1) mmol/L Chloride 96 L (98-107) mmol/L Carbon Dioxide 20 L (22-30) mmol/L Anion Gap 9 mmol/L BUN 7 (7-17) mg/dL Creatinine 0.33 L (0.52-1.04) mg/dL Est GFR (CKD-EPI)AfAm >90 (>60 ml/min/1.73 sqM) Est GFR (CKD-EPI)NonAf >90 (>60 ml/min/1.73 sqM) Glucose 134 H (74-99) mg/dL Calcium 8.3 L (8.4-10.2) mg/dL Total Bilirubin 0.9 (0.2-1.3) mg/dL AST 33 (14-36) U/L ALT 14 (4-34) U/L Alkaline Phosphatase 216 H (38-126) U/L Total Protein 5.5 L (6.3-8.2) g/dL Albumin 2.6 L (3.5-5.0) g/dL Amylase 35 (30-110) U/L Lipase 54 (23-300) U/L Urine Color Yellow Urine Appearance Cloudy H (Clear) Urine pH 6.5 (5.0-8.0) Ur Specific [place] 1.018 (1.001-1.035) Urine Protein 1+ H (Negative) Urine Glucose (UA) Trace H (Negative) Urine Ketones Negative (Negative) Urine Blood Negative (Negative) Urine Nitrite Negative (Negative) Urine Bilirubin Negative (Negative) Urine Urobilinogen 8.0 (<2.0) mg/dL Ur Leukocyte Esterase Trace H (Negative) Urine RBC 1 (0-5) /hpf Urine WBC 3 (0-5) /hpf Ur Squamous Epith Cells 6 H (0-4) /hpf Urine Bacteria Rare H (None) /hpf Hyaline Casts 3 H (0-2) /lpf Urine Mucus Occasional H (None) /hpf Disposition Clinical Impression: Pancreatic cancer, Hyponatremia, Abdominal pain Disposition: HOME SELF-CARE Condition: Stable Instructions (If sedation given, give patient instructions): Abdominal Pain (ED) Additional Instructions: Please return to the Emergency Department if symptoms worsen or any other concerns. Is patient prescribed a controlled substance at d/c from ED?: No Referrals: Sheron Lorenz MD [Primary Care Provider] - 1-2 days Time of Disposition: 02:27
[2020-11-27 00:23] LABS: Appearance,Urine Cloudy (Clear); Bacteria,Urine Rare /hpf; Bilirubin,Urine Negative (Negative); Blood,Urine Negative (Negative); Color,Urine Yellow; Glucose,Urine (UA) Trace (Negative); Hyaline Casts,Urine 3 /lpf (0-2); Ketones,Urine Negative (Negative); Leukocyte Esterase,Urine Trace (Negative); Mucus,Urine Occasional /hpf; Nitrite,Urine Negative (Negative); PH, Urine 6.5 (5.0-8.0); Protein,Urine 1+ (Negative); RBC,Urine 1 /hpf (0-5); Specific Gravity,Urine 1.018 (1.001-1.035); Squamous Epithelial Cell,Urine 6 /hpf (0-4); WBC,Urine 3 /hpf (0-5)
[2020-11-27 00:38] LABS: Basophils % (A) 0 %; Eosinophils # (A) 0.2 k/uL (0-0.7); Eosinophils % (A) 2 %; HCT 31.8 % (34.0-46.0); HGB 10.6 gm/dL (11.4-16.0); Lymphocytes # (A) 1.5 k/uL (1.0-4.8); Lymphocytes % (A) 11 %; MCH 27.8 pg (25.0-35.0); MCHC 33.3 g/dL (31.0-37.0); MCV 83.4 fL (80.0-100.0); Mean Platelet Volume 7.6; Monocytes % (A) 7 %; Neutrophils # (A) 10.4 k/uL (1.3-7.7); Neutrophils % (A) 79 %; Platelet Count 611 k/uL (150-450); RBC 3.81 m/uL (3.80-5.40); RDW 13.7 % (11.5-15.5); WBC 13.3 k/uL (3.8-10.6)
[2020-11-27 00:48] LABS: ALT 14 U/L (4-34); AST 33 U/L (14-36); African American GFR (CKD) >90 (>60 ml/min/1.73 sqM); Albumin 2.6 g/dL (3.5-5.0); Alkaline Phosphatase 216 U/L (38-126); Amylase 35 U/L (30-110); Anion Gap 9 mmol/L; Blood Urea Nitrogen 7 mg/dL (7-17); Calcium 8.3 mg/dL (8.4-10.2); Carbon Dioxide 20 mmol/L (22-30); Chloride 96 mmol/L (98-107); Glucose 134 mg/dL (74-99); Lipase 54 U/L (23-300); Non-African American GFR(CKD) >90 (>60 ml/min/1.73 sqM); Potassium 3.6 mmol/L (3.5-5.1); Sodium 125 mmol/L (137-145); Total Bilirubin 0.9 mg/dL (0.2-1.3); Total Protein 5.5 g/dL (6.3-8.2)
[2020-11-27 01:26] VITALS: RESP 18
[2020-11-27] MEDS ORDERED: ACET/COD 300 MG/30 MG STARTER PACK 6 TAB BTL PO STA (02:27)
[2020-11-27 04:05] VITALS: BP 140/78; PULSE 87; TEMP 98.1
== END 2020-11-27 04:05 | disposition home or self-care (01) ==
LOC: EC 23:05
DX: C25.9 Malignant neoplasm of pancreas, unspecified (principal); E87.1 Hypo-osmolality and hyponatremia; R11.2 Nausea with vomiting, unspecified; R10.9 Unspecified abdominal pain; E11.9 Type 2 diabetes mellitus without complications; I10 Essential (primary) hypertension; F17.200 Nicotine dependence, unspecified, uncomplicated; Z88.1 Allergy status to other antibiotic agents; Z79.899 Other long term (current) drug therapy
CPT/HCPCS: 36415; 80053; 82150; 83690; 85025; 81001; 99284; 96374; 96375; 96361; J2405; J1170; 99285

== ENCOUNTER 2020-11-27 16:04 | Observation (INO) | payer MEDICARE, OTHER ==
[2020-11-27] MEDS ORDERED: SODIUM CHLORIDE 0.9% 1,000 ML IV STA (18:13)
[2020-11-27] MEDS ORDERED: MORPHINE SULFATE 4 MG/ML SYRINGE IV STA (18:13)
--- NOTE | 2020-11-27 19:06 | ED ---
General Adult HPI - General Chief complaint: Abdominal Pain Stated complaint: Abd pain Time Seen by Provider: 11/27/20 18:10 Source: patient, RN notes reviewed, old records reviewed Mode of arrival: EMS Limitations: no limitations - History of Present Illness Initial comments: I evaluated the patient and she was placed in a room. Patient is a 65-year-old female with past medical history remarkable for pancreatic cancer, pancreatitis, diabetes. She has not yet started chemoradiation but does have an appointment with the surgeon to possibly have surgery next week. Patient presents after being seen yesterday for similar complaints, with persistent acute on chronic abdominal pain located in epigastric region and she describes it as a sharp, throbbing sensation. Does not radiate. She also endorses nausea and an inability to tolerate by mouth intake. She did have emesis yesterday which was similar to what ever she was eating, with no blood in it. Denies any change in bowel movements. Denies any urinary complaints. Denies any chest pain, shortness of breath. Denies any headaches. She has no other acute complaints at this time. Patient presents after returning for her worsening abdominal pain. - Related Data Home Medications Medication Instructions Recorded Confirmed amLODIPine BESYLATE/BENAZEPRIL 1 cap PO DAILY 09/25/13 11/27/20 [amLODIPine BESYLATE/BENAZEPRIL 10-40 MG] Gabapentin [Neurontin] 300 mg PO BID PRN 12/06/16 11/27/20 Albuterol Sulfate [Albuterol 2 puff INHALATION RT-Q4H PRN 09/04/20 11/27/20 Sulfate Hfa] Omeprazole 40 mg PO DAILY 09/24/20 11/27/20 Famotidine 40 mg PO BID 11/24/20 11/27/20 Lipase/Protease/Amylase [Zenpep Dr 1 cap PO 5XD PRN 11/24/20 11/27/20 5,000 Unit Capsule] Previous Rx's Medication Instructions Recorded Acetaminophen Tab [Tylenol] 650 mg PO Q4HR PRN tab 10/31/20 Magnesium Oxide 400 mg PO DAILY #30 tablet 10/31/20 Potassium Chloride [Potassium 10 meq PO DAILY 30 Days #30 10/31/20 Chloride ER] tablet.er traMADol HCL 50 mg PO Q6H PRN #120 tablet 11/12/20 Allergies Allergy/AdvReac Type Severity Reaction Status Date / Time erythromycin base AdvReac Nausea Verified 11/27/20 16:35 [Erythromycin Base] Review of Systems ROS Statement: Those systems with pertinent positive or pertinent negative responses have been documented in the HPI. Review of Systems: CONST: Denies fever EYES: Denies blurry vision ENT: Denies nasal congestion C/V: Denies Chest pain RESP: Denies shortness of breath GI: Endorses abdominal pain : Denies dysuria SKIN: Denies rash. MSK: Denies joint pain. NEURO: Denies headache ROS Other: All systems not noted in ROS Statement are negative. 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, head tremor History of Any Multi-Drug Resistant Organisms: None Reported Past Surgical History: Orthopedic Surgery, Tubal Ligation Additional Past Surgical History / Comment(s): 2 pins right hip-dislocated 1975 Past Anesthesia/Blood Transfusion Reactions: No Reported Reaction Past Psychological History: Anxiety, Depression Smoking Status: Current every day smoker Past Alcohol Use History: Daily Past Drug Use History: None Reported - Past Family History Mother Family Medical History: Liver Disease Father Family Medical History: Cancer Additional Family Medical History / Comment(s): Lung and liver cancer. General Exam - General Exam Comments Initial Comments: General: Appears in moderate distress secondary to abdominal pain. Appears cachetic. HEAD: Normal with no signs of head trauma. EYES: PERRLA, EOMI, conjunctiva normal, no discharge. ENT: Hearing grossly intact, normal oropharynx. RESPIRATORY: Clear breath sounds bilaterally. No wheezes, rales, or rhonchi. C/V: Regular rate and rhythm. S1 and S2 auscultated, no edema, peripheral pulses 2+ and intact throughout ABD: Abdomen soft, nondistended. Patient is tender to palpation in the epigastric region. No rebound tenderness. No peritoneal signs. EXT: Normal range of motion, no obvious deformity SKIN: No rashes or lesions observed on exposed skin. NEURO: Alert and oriented 4. Limitations: no limitations Course Vital Signs 11/27/20 11/27/20 16:32 20:37 Temperature 98.7 F Pulse Rate 82 82 Respiratory 16 20 Rate Blood Pressure 131/72 173/95 O2 Sat by Pulse 100 98 Oximetry Medical Decision Making - Medical Decision Making Based on the patient's presentation and physical exam, this is likely acute on chronic abdominal pain secondary to her pancreatitis and pancreatic cancer. She is also having persistent nausea. As she is returning to the emergency department at this time, we will obtain CT imaging this time as well as a basic cardiac workup to rule out atypical presentation of ACS. She was in agreement this plan. He'll actually his laboratory studies will otherwise be obtained. She'll be given a 1 L fluid bolus, as well as IV morphine. Patient was in agreement this plan. EKG revealed normal sinus rhythm with no acute ischemic changes. Chest x-ray revealed no acute cardiopulmonary process. CT of the abdomen and pelvis revealed a small amount of pelvic free fluid with no other acute abnormality. There is chronic bile duct stone with associated pneumobilia as well as redemonstrated chronic pancreatitis with moderate to markedly pancreatic ductal dilation. Patient's lavatory studies are remarkable for a leukocytosis of 13.0. Patient was found to cytosis with a platelet count of 755. Patient is mild hyponatremia of 129. Chest is mild hypochloremia of 97. Alk phos is mildly elevated 429. Troponin is negative. Amylase and lipase are within normal limits. Urinalysis is unremarkable and a contaminated catch. On reevaluation, patient still complaining of persistent pain. We reviewed her lavatory studies and imaging. Discussed with her she is still having nausea and vomiting as well as abdominal pain she would like to be admitted to observation to control improvement nausea and vomiting. She was in agreement this plan. I spoke with the admitting team, YU Corado who accepted the admission under Dr. Brito. Patient was therefore admitted in serious condition. - Lab Data Result diagrams: 11/27/20 19:11/27/20 19:09 Lab Results 11/27/20 11/27/20 11/27/20 Range/Units 19:09 19: 19:09 WBC 13.0 H (3.8-10.6) k/uL RBC 4.22 (3.80-5.40) m/uL Hgb 11.7 (11.4-16.0) gm/dL Hct 35.7 (34.0-46.0) % MCV 84.6 (80.0-100.0) fL MCH 27.8 (25.0-35.0) pg MCHC 32.9 (31.0-37.0) g/dL RDW 14.1 (11.5-15.5) % Plt Count 755 H (150-450) k/uL MPV 6.8 Neutrophils % 80 % Lymphocytes % 12 % Monocytes % 4 % Eosinophils % 2 % Basophils % 0 % Neutrophils # 10.4 H (1.3-7.7) k/uL Lymphocytes # 1.5 (1.0-4.8) k/uL Monocytes # 0.5 (0-1.0) k/uL Eosinophils # 0.3 (0-0.7) k/uL Basophils # 0.0 (0-0.2) k/uL PT 10.2 (9.0-12.0) sec INR 0.9 (<1.2) APTT 25.1 (22.0-30.0) sec Sodium (137-145) mmol/L Potassium (3.5-5.1) mmol/L Chloride (98-107) mmol/L Carbon Dioxide (22-30) mmol/L Anion Gap mmol/L BUN (7-17) mg/dL Creatinine (0.52-1.04) mg/dL Est GFR (CKD-EPI)AfAm (>60 ml/min/1.73 sqM) Est GFR (CKD-EPI)NonAf (>60 ml/min/1.73 sqM) Glucose (74-99) mg/dL Calcium (8.4-10.2) mg/dL Total Bilirubin (0.2-1.3) mg/dL AST (14-36) U/L ALT (4-34) U/L Alkaline Phosphatase (38-126) U/L Troponin I (0.000-0.034) ng/mL Total Protein (6.3-8.2) g/dL Albumin (3.5-5.0) g/dL Amylase (30-110) U/L Lipase (23-300) U/L Urine Color Yellow Urine Appearance Cloudy H (Clear) Urine pH 6.5 (5.0-8.0) Ur Specific [place] 1.018 (1.001-1.035) Urine Protein 1+ H (Negative) Urine Glucose (UA) Negative (Negative) Urine Ketones Negative (Negative) Urine Blood Negative (Negative) Urine Nitrite Negative (Negative) Urine Bilirubin 1+ H (Negative) Urine Urobilinogen >12.0 (<2.0) mg/dL Ur Leukocyte Esterase Moderate H (Negative) Urine RBC 1 (0-5) /hpf Urine WBC 8 H (0-5) /hpf Ur Squamous Epith Cells 18 H (0-4) /hpf Urine Bacteria Rare H (None) /hpf Urine Mucus Few H (None) /hpf 11/27/20 11/27/20 Range/Units 19:09 19:09 WBC (3.8-10.6) k/uL RBC (3.80-5.40) m/uL Hgb (11.4-16.0) gm/dL Hct (34.0-46.0) % MCV (80.0-100.0) fL MCH (25.0-35.0) pg MCHC (31.0-37.0) g/dL RDW (11.5-15.5) % Plt Count (150-450) k/uL MPV Neutrophils % % Lymphocytes % % Monocytes % % Eosinophils % % Basophils % % Neutrophils # (1.3-7.7) k/uL Lymphocytes # (1.0-4.8) k/uL Monocytes # (0-1.0) k/uL Eosinophils # (0-0.7) k/uL Basophils # (0-0.2) k/uL PT (9.0-12.0) sec INR (<1.2) APTT (22.0-30.0) sec Sodium 129 L (137-145) mmol/L Potassium 3.5 (3.5-5.1) mmol/L Chloride 97 L (98-107) mmol/L Carbon Dioxide 22 (22-30) mmol/L Anion Gap 10 mmol/L BUN 5 L (7-17) mg/dL Creatinine 0.34 L (0.52-1.04) mg/dL Est GFR (CKD-EPI)AfAm >90 (>60 ml/min/1.73 sqM) Est GFR (CKD-EPI)NonAf >90 (>60 ml/min/1.73 sqM) Glucose 129 H (74-99) mg/dL Calcium 8.8 (8.4-10.2) mg/dL Total Bilirubin 0.8 (0.2-1.3) mg/dL AST 66 H (14-36) U/L ALT 28 (4-34) U/L Alkaline Phosphatase 429 H (38-126) U/L Troponin I <0.012 (0.000-0.034) ng/mL Total Protein 6.1 L (6.3-8.2) g/dL Albumin 2.9 L (3.5-5.0) g/dL Amylase 37 (30-110) U/L Lipase 40 (23-300) U/L Urine Color Urine Appearance (Clear) Urine pH (5.0-8.0) Ur Specific [place] (1.001-1.035) Urine Protein (Negative) Urine Glucose (UA) (Negative) Urine Ketones (Negative) Urine Blood (Negative) Urine Nitrite (Negative) Urine Bilirubin (Negative) Urine Urobilinogen (<2.0) mg/dL Ur Leukocyte Esterase (Negative) Urine RBC (0-5) /hpf Urine WBC (0-5) /hpf Ur Squamous Epith Cells (0-4) /hpf Urine Bacteria (None) /hpf Urine Mucus (None) /hpf - EKG Data -: EKG Interpreted by Me EKG Comments: 12-lead Electrocardiogram Interpretation Note EKG was reviewed and interpreted by myself. 12-lead ECG performed at 1901 is interpreted by me as revealing normal sinus rhythm at a rate of 84 beats per minute. [place] is normal. GA interval is 144 ms, QRS duration is 80 ms, QTc is 432 ms.. There were no ST or T wave abnormalities to suggest myocardial ischemia or injury. R wave progression across the precordium was satisfactory. By my interpretation this EKG is non-diagnostic for acute ischemia. Disposition Clinical Impression: Pancreatitis, Pancreatic cancer, Acute on chronic pancreatitis, Nausea and vomiting, Abdominal pain Disposition: ADMITTED IP TO THIS HOSP Condition: Serious Referrals: Sheron Lorenz MD [Primary Care Provider] - 1-2 days
[2020-11-27 19:17] LABS: Basophils % (A) 0 %; Eosinophils # (A) 0.3 k/uL (0-0.7); Eosinophils % (A) 2 %; HCT 35.7 % (34.0-46.0); HGB 11.7 gm/dL (11.4-16.0); Lymphocytes # (A) 1.5 k/uL (1.0-4.8); Lymphocytes % (A) 12 %; MCH 27.8 pg (25.0-35.0); MCHC 32.9 g/dL (31.0-37.0); MCV 84.6 fL (80.0-100.0); Mean Platelet Volume 6.8; Monocytes # (A) 0.5 k/uL (0-1.0); Monocytes % (A) 4 %; Neutrophils # (A) 10.4 k/uL (1.3-7.7); Neutrophils % (A) 80 %; Platelet Count 755 k/uL (150-450); RBC 4.22 m/uL (3.80-5.40); RDW 14.1 % (11.5-15.5)
[2020-11-27 19:27] LABS: INR 0.9 (<1.2); Partial Thromboplastin Time 25.1 sec (22.0-30.0); Prothrombin Time 10.2 sec (9.0-12.0)
[2020-11-27 19:29] LABS: ALT 28 U/L (4-34); AST 66 U/L (14-36); African American GFR (CKD) >90 (>60 ml/min/1.73 sqM); Albumin 2.9 g/dL (3.5-5.0); Alkaline Phosphatase 429 U/L (38-126); Amylase 37 U/L (30-110); Anion Gap 10 mmol/L; Blood Urea Nitrogen 5 mg/dL (7-17); Calcium 8.8 mg/dL (8.4-10.2); Carbon Dioxide 22 mmol/L (22-30); Chloride 97 mmol/L (98-107); Glucose 129 mg/dL (74-99); Lipase 40 U/L (23-300); Non-African American GFR(CKD) >90 (>60 ml/min/1.73 sqM); Potassium 3.5 mmol/L (3.5-5.1); Sodium 129 mmol/L (137-145); Total Bilirubin 0.8 mg/dL (0.2-1.3); Total Protein 6.1 g/dL (6.3-8.2)
[2020-11-27 19:35] LABS: Appearance,Urine Cloudy (Clear); Bacteria,Urine Rare /hpf; Bilirubin,Urine 1+ (Negative); Blood,Urine Negative (Negative); Color,Urine Yellow; Glucose,Urine (UA) Negative (Negative); Ketones,Urine Negative (Negative); Leukocyte Esterase,Urine Moderate (Negative); Mucus,Urine Few /hpf; Nitrite,Urine Negative (Negative); PH, Urine 6.5 (5.0-8.0); Protein,Urine 1+ (Negative); RBC,Urine 1 /hpf (0-5); Specific Gravity,Urine 1.018 (1.001-1.035); Squamous Epithelial Cell,Urine 18 /hpf (0-4); Urobilinogen,Urine >12.0 mg/dL (<2.0); WBC,Urine 8 /hpf (0-5)
--- NOTE | 2020-11-27 20:07 | XR ---
EXAMINATION TYPE: XR chest 1V portable DATE OF EXAM: 11/27/2020 COMPARISON: CT 11/11/2020. HISTORY: Pain. TECHNIQUE: Single frontal view of the chest is obtained. FINDINGS: There is no focal air space opacity, pleural effusion, or pneumothorax seen. The cardiac silhouette size is within normal limits. The osseous structures are intact. IMPRESSION: No acute process.
--- NOTE | 2020-11-27 21:03 | CT ---
EXAMINATION TYPE: CT abdomen pelvis w con DATE OF EXAM: 11/27/2020 COMPARISON: 11/11/2020. HISTORY: Generalized abdominal pain. CT DLP: 507 mGycm Automated exposure control for dose reduction was used. TECHNIQUE: Helical acquisition of images was performed from the lung bases through the pelvis. CONTRAST: Performed without Oral Contrast and with IV Contrast, patient injected with 100ml mL of Isovue 300. FINDINGS: LUNG BASES: No significant abnormality is appreciated. LIVER/GB: No acute abnormality is appreciated. Redemonstrated common bile duct stent with moderate pn eumobilia, similar to prior study. PANCREAS: No acute abnormality is seen. Stable moderate to marked pancreatic ductal dilatation. Scatt ered pancreatic calcifications, in keeping chronic pancreatitis seen. SPLEEN: No significant abnormality is seen. ADRENALS: No significant abnormality is seen. KIDNEYS: Renal pelvic ectasia. No overt bilateral hydronephrosis or obstructing calculi. FREE AIR: No free air is visualized. RETROPERITONEAL ADENOPATHY: None visualized REPRODUCTIVE ORGANS: No significant abnormality is seen URINARY BLADDER: No significant abnormality is seen. PELVIC ADENOPATHY: None visualized. OSSEOUS STRUCTURES: No acute abnormality is seen. Prior right proximal femur ORIF seen. Moderate to severe L5-S1 spondylosis. BOWEL: Small pelvic free fluid. No bowel obstruction. OTHER: Moderate to advanced atherosclerotic disease. IMPRESSION: SMALL PELVIC FREE FLUID. OTHERWISE NO ACUTE ABNORMALITY. STABLE COMMON BILE DUCT STENT WITH ASSOCIATED PNEUMOBILIA. REDEMONSTRATED CHRONIC PANCREATITIS WITH MODERATE TO MARKED PANCREATIC DUCTAL DILATATION.
[2020-11-27] MEDS ORDERED: MORPHINE SULFATE 4 MG/ML SYRINGE IV PRN (21:36)
[2020-11-27] MEDS ORDERED: IBUPROFEN 400 MG TAB PO PRN (21:36)
[2020-11-27] MEDS ORDERED: NALOXONE 0.4 MG/ML 1 ML VIAL IV PRN (21:36)
[2020-11-27] MEDS ORDERED: ONDANSETRON 4 MG/2 ML VIAL IVP PRN (21:36)
[2020-11-27] MEDS ORDERED: LIPASE 5,000/PROTEASE 17,000/AMYLASE 24,000 PO PRN (21:38)
[2020-11-27] MEDS ORDERED: GABAPENTIN 300 MG CAP PO PRN (21:38)
[2020-11-27] MEDS: SODIUM CHLORIDE 0.9% 1,000 ML IV SCH (22:41)
[2020-11-28] MEDS: SODIUM CHLORIDE 0.9% 1,000 ML IV SCH (06:49)
[2020-11-28] MEDS ORDERED: NON FORMULARY DRUG (Tramadol Hcl 50 MG Tablet) PO PRN (07:19)
[2020-11-28 07:38] LABS: Glucose,Whole Blood 142 mg/dL (75-99)
[2020-11-28] MEDS ORDERED: MORPHINE SULFATE 4 MG/ML SYRINGE IVP PRN (09:08)
--- NOTE | 2020-11-28 09:08 | P.HPIM ---
History of Present Illness This is a pleasant 65 years old -[place] female with past medical history of pancreatic cancer, abdominal pain, diabetes mellitus, hypertension, hyperlipidemia, osteoarthritis, chronic back pain with sciatica. Presents to the hospital with recurrent epigastric abdominal pain over the last month. Presents this time also with increasing abdominal pain, which went 8/10 shooting to 10/10 when it comes and cramps more severe. Rest with eating. She vomited 3 times over the last week, last time 3 days to 4 days ago. No d iarrhea. No chest pain or dyspnea. No fever She supposed to have pancreatic cancer surgery as per patient with Dr. lopez at [facility] in [facility] next week on 12/04 Vitals are stable She has mild chronic leukocytosis with WBC 10.5-13, platelet count 755, hemoglobin normal currently its@13 K. INR is 0.9 Sodium 129, she has chronic hyponatremia sodium 125-132 potassium normal at 3.5, creatinine 0.3, AST slightly elevated at 66, ALT normal at 28, troponin is negative less than 0.012. Lipase is 40 Abdominal x-ray: No acute process CT of the abdomen and pelvis with contrast: Small pelvic fluid, otherwise no acute abnormality. Stable common bile duct stent with associated pneumobilia. Chronic pancreatitis with moderate to marked pancreatic duct dilatation She was placed on normal saline at 75 mL/h and given morphine 4 mg Review of Systems CONSTITUTIONAL: No fever, no malaise, no fatigue. HEENT: No recent visual problems or hearing problems. Denied any sore throat. CARDIOVASCULAR: No orthopnea, PND, no palpitations, no syncope. PULMONARY: No shortness of breath, no cough, no hemoptysis. GASTROINTESTINAL: No diarrhea, Normoactive bowel sounds. NEUROLOGICAL: No headaches, no weakness, no numbness. HEMATOLOGICAL: Denies any bleeding or petechiae. GENITOURINARY: Denies any burning micturition, frequency, or urgency. MUSCULOSKELETAL/RHEUMATOLOGICAL: Denies any joint pain, swelling, or any muscle pain. ENDOCRINE: Denies any polyuria or polydipsia. 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, head tremor History of Any Multi-Drug Resistant Organisms: None Reported Past Surgical History: Orthopedic Surgery, Tubal Ligation Additional Past Surgical History / Comment(s): 2 pins right hip-dislocated 1975 Past Anesthesia/Blood Transfusion Reactions: No Reported Reaction Past Psychological History: Anxiety, Depression Smoking Status: Current every day smoker Past Alcohol Use History: Daily Past Drug Use History: None Reported - Past Family History Mother Family Medical History: Liver Disease Father Family Medical History: Cancer Additional Family Medical History / Comment(s): Lung and liver cancer. Medications and Allergies Home Medications Medication Instructions Recorded Confirmed Type amLODIPine BESYLATE/BENAZEPRIL 1 cap PO DAILY 09/25/13 11/27/20 History [amLODIPine BESYLATE/BENAZEPRIL 10-40 MG] Gabapentin [Neurontin] 300 mg PO BID PRN 12/06/16 11/27/20 History Albuterol Sulfate [Albuterol 2 puff INHALATION RT-Q4H PRN 09/04/20 11/27/20 History Sulfate Hfa] Omeprazole 40 mg PO DAILY 09/24/20 11/27/20 History Acetaminophen Tab [Tylenol] 650 mg PO Q4HR PRN tab 10/31/20 11/27/20 Rx Magnesium Oxide 400 mg PO DAILY #30 tablet 10/31/20 11/27/20 Rx Potassium Chloride [Potassium 10 meq PO DAILY 30 Days #30 10/31/20 11/27/20 Rx Chloride ER] tablet.er traMADol HCL 50 mg PO Q6H PRN #120 tablet 11/12/20 11/27/20 Rx Famotidine 40 mg PO BID 11/24/20 11/27/20 History Lipase/Protease/Amylase [Zenpep Dr 1 cap PO 5XD PRN 11/24/20 11/27/20 History 5,000 Unit Capsule] Allergies Allergy/AdvReac Type Severity Reaction Status Date / Time erythromycin base AdvReac Nausea Verified 11/27/20 16:35 [Erythromycin Base] Physical Exam Vitals: Vital Signs Temp Pulse Resp BP Pulse Ox 11/28/20 06:52 98.8 F 86 16 163/94 100 11/27/20 22:30 78 20 162/88 11/27/20 20:37 82 20 173/95 98 11/27/20 16:32 98.7 F 82 16 131/72 100 Intake and Output 11/27/20 11/28/20 11/28/20 22:59 06:59 14:59 Other: Weight 49.895 kg GENERAL: The patient is alert and oriented x3, not in any acute distress. Well developed, well nourished. HEENT: Pupils are round and equally reacting to light. EOMI. No scleral icterus. No conjunctival pallor. Normocephalic, atraumatic. No pharyngeal erythema. No thyromegaly. CARDIOVASCULAR: S1 and S2 present. No murmurs, rubs, or gallops. PULMONARY: Chest is clear to auscultation, no wheezing or crackles. -ABDOMEN: Soft, epigastric tenderness, no rebound tenderness or guarding, nondistended, normoactive bowel sounds. No palpable organomegaly. MUSCULOSKELETAL: No joint swelling or deformity. EXTREMITIES: No cyanosis, clubbing, or pedal edema. NEUROLOGICAL: Gross neurological examination did not reveal any focal deficits. SKIN: No rashes. No petechiae Results CBC & Chem 7: 11/27/20 19:09 11/27/20 19:09 Labs: Abnormal Lab Results - Last 24 Hours (Table) 11/27/20 11/27/20 11/27/20 Range/Units 19:09 19:09 19:09 WBC 13.0 H (3.8-10.6) k/uL Plt Count 755 H (150-450) k/uL Neutrophils # 10.4 H (1.3-7.7) k/uL Sodium 129 L (137-145) mmol/L Chloride 97 L (98-107) mmol/L BUN 5 L (7-17) mg/dL Creatinine 0.34 L (0.52-1.04) mg/dL Glucose 129 H (74-99) mg/dL AST 66 H (14-36) U/L Alkaline Phosphatase 429 H (38-126) U/L Total Protein 6.1 L (6.3-8.2) g/dL Albumin 2.9 L (3.5-5.0) g/dL Urine Appearance Cloudy H (Clear) Urine Protein 1+ H (Negative) Urine Bilirubin 1+ H (Negative) Ur Leukocyte Esterase Moderate H (Negative) Urine WBC 8 H (0-5) /hpf Ur Squamous Epith Cells 18 H (0-4) /hpf Urine Bacteria Rare H (None) /hpf Urine Mucus Few H (None) /hpf Assessment and Plan Assessment: Episodic epigastric Abdominal pain and tenderness especially with meals, associated with her recent diagnosis of pancreatic cancer, with dilated pancreatic duct Pancreatic cancer Chronic pancreatitis Chronic leukocytosis Chronic hyponatremia Mild calories protein malnutrition Hypertension Hyperlipidemia Diabetes mellitus Osteoarthritis Chronic back pain with sciatic Plan: This is a pleasant 65 years old female who presents with recurrent abdominal pain. Continue with gentle hydration, continue with Protonix and pancreatic enzyme. Pain management, increase her home dose of Ultram 5200 mg Consult oncology team. Consult GI team Labs and medication were reviewed.. Continue same treatment. Continue with symptomatic treatment. Resume home medication. Monitor lytes and vitals. DVT and GI prophylaxis. Further recommendations depends on the clinical course of the patient DVT prophylaxis: Subcutaneous heparin GI Prophylaxis: Ppi Prognosis is guarded
[2020-11-28] MEDS: PANTOPRAZOLE 40 MG TABLET PO SCH (09:40)
[2020-11-28] MEDS: MAGNESIUM OXIDE 400 MG TAB PO SCH (09:40)
[2020-11-28] MEDS: amLODIPine 10 MG TAB PO SCH (09:40)
[2020-11-28] MEDS: FAMOTIDINE 20 MG TAB PO SCH ×2 (09:40→20:11)
[2020-11-28] MEDS: HEPARIN SODIUM,PORCINE/PF 5,000 UNIT/0.5 ML SYRINGE SQ SCH ×4 (09:41→20:14)
[2020-11-28] MEDS: lisinopriL 20 MG TAB PO SCH (09:41)
[2020-11-28 09:54] LABS: Basophils # (A) 0.1 k/uL (0-0.2); Basophils % (A) 1 %; Eosinophils # (A) 0.2 k/uL (0-0.7); Eosinophils % (A) 2 %; HCT 32.7 % (34.0-46.0); HGB 10.5 gm/dL (11.4-16.0); Hypochromasia Slight; Lymphocytes # (A) 0.7 k/uL (1.0-4.8); Lymphocytes % (A) 6 %; MCH 27.7 pg (25.0-35.0); MCHC 32.1 g/dL (31.0-37.0); MCV 86.3 fL (80.0-100.0); Mean Platelet Volume 7.1; Monocytes # (A) 0.5 k/uL (0-1.0); Monocytes % (A) 5 %; Neutrophils # (A) 8.9 k/uL (1.3-7.7); Neutrophils % (A) 85 %; Platelet Count 711 k/uL (150-450); RBC 3.79 m/uL (3.80-5.40); RDW 14.4 % (11.5-15.5); WBC 10.5 k/uL (3.8-10.6)
[2020-11-28] MEDS: traMADol 50 MG TAB PO PRN ×2 (09:54→17:33)
[2020-11-28 10:14] LABS: ALT 20 U/L (4-34); AST 36 U/L (14-36); African American GFR (CKD) >90 (>60 ml/min/1.73 sqM); Albumin 2.4 g/dL (3.5-5.0); Albumin/Globulin Ratio 0.9; Alkaline Phosphatase 313 U/L (38-126); Anion Gap 7 mmol/L; Blood Urea Nitrogen 3 mg/dL (7-17); Calcium 8.3 mg/dL (8.4-10.2); Carbon Dioxide 22 mmol/L (22-30); Chloride 101 mmol/L (98-107); Globulin 2.8 g/dL; Glucose 226 mg/dL (74-99); Non-African American GFR(CKD) >90 (>60 ml/min/1.73 sqM); Potassium 3.2 mmol/L (3.5-5.1); Sodium 130 mmol/L (137-145); Total Bilirubin 0.7 mg/dL (0.2-1.3); Total Protein 5.2 g/dL (6.3-8.2)
--- NOTE | 2020-11-28 14:45 | P.CONS ---
History of Present Illness - Reason for Consult Consult date: 11/28/20 chronic pancreatitis Requesting physician: Michael Doss - Chief Complaint Abdominal pain - History of Present Illness This is a pleasant 65-year-old -Stateless female who presented to the hospital with abdominal pain so sedated with nausea. Her past medical history includes hypertension, osteoarthritis and recent diagnosis of pancreatic adenocarcinoma pending surgery at [facility] on 12/04/2020. The patient was initially hospitalized in mid August for an ALLERGIC reaction to jellybeans and was found to have elevated LFTs. During her workup in the e mergency department she was found to have elevation in her liver enzymes and subsequently an abdominal ultrasound was ordered which found a dilated common bile duct pancreatic head. MRCP could be obtained if clinically warranted. Both the liver and gallbladder are within normal limits. She underwent an MRCP during that admission that showed confirmation of mild to moderate biliary dilation and moderate pancreatic ductal dilation with abrupt cutoff, there is suspected 3.8 cm pancreatic head mass or neoplasm. at that time the patient was recommended to be transferred to [facility] for further evaluation with EUS. She had an ERCP with stent placement. She She does admit to heavy alcohol use for many years. She was drinking beer daily. She does state her mother at age 41 for cirrhosis of the liver related to alcoholism and diabetes. During her workup in the emergency department she underwent a CT of the abdomen and pelvis that showed small pelvic free fluid, stable common bile duct stent with associated pneumobilia, redemonstrated chronic pancreatitis with moderate to marked pancreatic ductal dilation. Admitting labs show total bilirubin 0.8, AST 66, ALT 28, alk phos 429, amylase 37, lipase 40. Patient states abdominal pain is improving with pain medication, she denies any further nausea. She is tolerating a clear liquid diet. States she has not had a bowel movement in about 5 days, patient does suffer from chronic constipation and has not been using her MiraLAX at home. Review of Systems REVIEW OF SYSTEMS: CARDIOPULMONARY: No chest pain or shortness of breath. Gastrointestinal: Epigastric pain. Nausea with no vomiting. No hematemesis, coffee-ground emesis. No rectal bleeding, or melena. GENITOURINARY: No dysuria or hematuria. MUSCULOSKELETAL: Reports normal range of motion., Joint pain. SKIN: No rashes. No jaundice. ENDOCRINE: No chills, fevers. No excessive weight gain or loss. No polydipsia or polyuria. PSYCHIATRIC: Unremarkable. NEUROLOGY: No change in mental status. Denies dizziness, headache. ENT: Vision unremarkable. CONSTITUTIONAL: No recent weight loss. No fever, chills, night sweats. 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, head tremor History of Any Multi-Drug Resistant Organisms: None Reported Past Surgical History: Orthopedic Surgery, Tubal Ligation Additional Past Surgical History / Comment(s): 2 pins right hip-dislocated 1975 Past Anesthesia/Blood Transfusion Reactions: No Reported Reaction Past Psychological History: Anxiety, Depression Smoking Status: Current every day smoker Past Alcohol Use History: Daily Past Drug Use History: None Reported - Past Family History Mother Family Medical History: Liver Disease Father Family Medical History: Cancer Additional Family Medical History / Comment(s): Lung and liver cancer. Medications and Allergies Home Medications Medication Instructions Recorded Confirmed Type amLODIPine BESYLATE/BENAZEPRIL 1 cap PO DAILY 09/25/13 11/27/20 History [amLODIPine BESYLATE/BENAZEPRIL 10-40 MG] Gabapentin [Neurontin] 300 mg PO BID PRN 12/06/16 11/27/20 History Albuterol Sulfate [Albuterol 2 puff INHALATION RT-Q4H PRN 09/04/20 11/27/20 History Sulfate Hfa] Omeprazole 40 mg PO DAILY 09/24/20 11/27/20 History Acetaminophen Tab [Tylenol] 650 mg PO Q4HR PRN tab 10/31/20 11/27/20 Rx Magnesium Oxide 400 mg PO DAILY #30 tablet 10/31/20 11/27/20 Rx Potassium Chloride [Potassium 10 meq PO DAILY 30 Days #30 10/31/20 11/27/20 Rx Chloride ER] tablet.er traMADol HCL 50 mg PO Q6H PRN #120 tablet 11/12/20 11/27/20 Rx Famotidine 40 mg PO BID 11/24/20 11/27/20 History Lipase/Protease/Amylase [Zenpep Dr 1 cap PO 5XD PRN 11/24/20 11/27/20 History 5,000 Unit Capsule] Allergies Allergy/AdvReac Type Severity Reaction Status Date / Time erythromycin base AdvReac Nausea Verified 11/27/20 16:35 [Erythromycin Base] Physical Exam Vitals: Vital Signs Temp Pulse Resp BP Pulse Ox 11/28/20 06:52 98.8 F 86 16 163/94 100 11/27/20 22:30 78 20 162/88 11/27/20 20:37 82 20 173/95 98 11/27/20 16:32 98.7 F 82 16 131/72 100 Intake and Output 11/27/20 11/28/20 11/28/20 22:59 06:59 14:59 Other: Voiding Method Toilet Weight 49.895 kg 49.895 kg General appearance: The patient is alert, oriented, appears in no acute distress. Thin. HET: Head is normocephalic and atraumatic. Conjunctiva pink. Sclera anicteric. Neck: Supple without lymphadenopathy. Trachea midline. Heart: S1 S2. Regular rate and rhythm. Lungs: Clear to auscultation. Abdomen: Soft, thin, right upper quadrant and epigastric tenderness, nondistended with bowel sounds. No guarding or rigidity. Skin: No rashes. No jaundice. Extremities: Normal skin color and turgor. No pedal edema. Neurological: No focal deficits. Alert and oriented 3.. Results CBC & Chem 7: 11/28/20 09:23 11/28/20 09:23 Labs: Abnormal Lab Results - Last 24 Hours (Table) 11/27/20 11/27/20 11/27/20 Range/Units 19:09 19:09 19:09 WBC 13.0 H (3.8-10.6) k/uL Plt Count 755 H (150-450) k/uL Neutrophils # 10.4 H (1.3-7.7) k/uL Sodium 129 L (137-145) mmol/L Chloride 97 L (98-107) mmol/L BUN 5 L (7-17) mg/dL Creatinine 0.34 L (0.52-1.04) mg/dL Glucose 129 H (74-99) mg/dL POC Glucose (mg/dL) (75-99) mg/dL AST 66 H (14-36) U/L Alkaline Phosphatase 429 H (38-126) U/L Total Protein 6.1 L (6.3-8.2) g/dL Albumin 2.9 L (3.5-5.0) g/dL Urine Appearance Cloudy H (Clear) Urine Protein 1+ H (Negative) Urine Bilirubin 1+ H (Negative) Ur Leukocyte Esterase Moderate H (Negative) Urine WBC 8 H (0-5) /hpf Ur Squamous Epith Cells 18 H (0-4) /hpf Urine Bacteria Rare H (None) /hpf Urine Mucus Few H (None) /hpf 11/28/20 Range/Units 07:36 WBC (3.8-10.6) k/uL Plt Count (150-450) k/uL Neutrophils # (1.3-7.7) k/uL Sodium (137-145) mmol/L Chloride (98-107) mmol/L BUN (7-17) mg/dL Creatinine (0.52-1.04) mg/dL Glucose (74-99) mg/dL POC Glucose (mg/dL) 142 H (75-99) mg/dL AST (14-36) U/L Alkaline Phosphatase (38-126) U/L Total Protein (6.3-8.2) g/dL Albumin (3.5-5.0) g/dL Urine Appearance (Clear) Urine Protein (Negative) Urine Bilirubin (Negative) Ur Leukocyte Esterase (Negative) Urine WBC (0-5) /hpf Ur Squamous Epith Cells (0-4) /hpf Urine Bacteria (None) /hpf Urine Mucus (None) /hpf CT scan - abdomen: report reviewed ( CT of the abdomen and pelvis that showed small pelvic free fluid, stable common bile duct stent with associated pneu mobilia, redemonstrated chronic pancreatitis with moderate to marked pancreatic ductal dilation.) Assessment and Plan (1) Abdominal pain Narrative/Plan: 65-year-old -Stateless female who presented to the emergency department with increased abdominal pain mostly in the right upper quadrant and epigastric region. Patient was recently diagnosed with pancreatic adenocarcinoma after being evaluated in August for an ALLERGIC reaction to jellybeans and was noted to have elevated LFTs. At that time she underwent abdominal ultrasound was ordered which found a dilated common bile duct pancreatic head. MRCP could be obtained if clinically warranted. Both the liver and gallbladder are within normal limits. She underwent an MRCP during that admission that showed confirmation of mild to moderate biliary dilation and moderate pancreatic ductal dilation with abrupt cutoff, there is suspected 3.8 cm pancreatic head mass or neoplasm. The patient was transferred to [facility] for EUS, she underwent ERCP and EUS with a stent placement. She's been following with [facility] for her pancreatic adenocarcinoma. She is scheduled for surgery 12/04/2020. She is also following with oncology. She states that she was having increased abdominal pain associated with nausea but no vomiting so she presented to the emergency department. She underwent a CT of the abdomen and pelvis that showed chronic pancreatitis. Today's labs show total bilirubin 0.7, AST 36, ALT 20, alk phos 313 on admission she had a normal amylase and lipase. Current Visit: Yes Status: Acute Priority: High Code(s): R10.9 - UNSPECIFIED ABDOMINAL PAIN SNOMED Code(s): 24600872 (2) Pancreatic cancer Current Visit: Yes Status: Acute Priority: High Code(s): C25.9 - MALIGNANT NEOPLASM OF PANCREAS, UNSPECIFIED SNOMED Code(s): 928676307 (3) Chronic pancreatitis Current Visit: Yes Status: Acute Code(s): K86.1 - OTHER CHRONIC PANCREATITIS SNOMED Code(s): 877675498 Plan: 1. Continue symptomatic and supportive care 2. IV hydration 3. Patient may have clear liquid diet 4. Pain medication as needed 5. Patient to follow-up [facility] has scheduled for surgery on 12/04/2020 6. Continue to follow with oncology Thank you for this consultation, we will continue to follow. Dr. Kingsley Quiles I agree with the dictator's note, documented as a scribe by Nelia Holman.
[2020-11-28] MEDS ORDERED: POTASSIUM CHLORIDE ER 20 MEQ TAB.ER PO STA (18:43)
[2020-11-28] MEDS ORDERED: Potassium Replacement Protocol 1 EACH MISC MISCELLANE PRN (21:14)
[2020-11-28] MEDS ORDERED: Magnesium Replacement Protocol 1 EACH MISC MISCELLANE PRN (21:14)
--- NOTE | 2020-11-28 22:45 | P.CONS ---
History of Present Illness - Reason for Consult Consult date: 11/28/20 Pancreatic Cancer Requesting physician: Michael E Sheet - History of Present Illness Ms Morel is a pleasant -[place] female, initially hospitalized in mid 09/09 because of an allergic reaction to generally means. During that admission she was found to have elevated liver enzymes. She had an abdominal ultrasound that showed common bile duct and intrahepatic duct dilatation with possible mass in the pancreatic head. This was performed on 09/04/20. This led to GI consult an MRCP. This confirmed mild to moderate central intrahepatic along with extrahepatic biliary dilatation. There was abrupt cutoff seen in the region of the pancreatic head. There was suggestion of a pancreatic head mass measuring 3.8 x 3.2 cm. There appeared to be generalized atrophy and ductal dilatation in the pancreas. There was no suspicious adenopathy or liver lesions seen. The patient was then seen by GI, and was recommended a referral to [facility] for endoscopic ultrasound. Prior to that she was admitted to the hospital for increasing abdominal pain, and decreased appetite, on 09/24/20. During that admission bilirubin was 2.4, AST 501, ALT 462 and alkaline phosphatase 778. The patient was then transferred to [facility] where she underwent an EUS on 10/02/20. The procedure note was not available to us at the time of her initial consultation. 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 The patient had ERCP at [facility] on 10/09/20. The procedure report notes unsuccessful biliary elevation due to large, bulging and downward facing major papilla. It is not clear the patient had stenting done from the report though the patient states that she thinks she has a stent. She was then referred here for further evaluation and recommendations. She denied any prior history of malignancy. Slow family history of pancreas cancer, ovarian or breast cancer. She has a history of smoking at least a pack a day since her teens. She is also drinking about 3-6 beers a day on a regular basis for many years. She quit in 09/09. She states that her abdominal pain is persistent but reasonably controlled with tramadol. the patient was admitted to the hospital in the week of 10/29/20 with increased abdominal pain and fever. This was controlled with adjustment of pain medications. A celiac plexus block was planned but put on hold due to the fever. This improved with antibiotics. Repeat imaging showed no recurrent biliary obstruction. Cultures remained negative PET scan from 11/01/20 showed no evidence of metastatic disease She denied any fevers/chills/nausea/vomiting. She continues to have abdominal pain off and on, controlled with pain medications. Appetite is in the same range. Unfortunately she has yet to follow up with the recommendations of surgical consult and reshma-adjuvant chemotherapy. She has rescheduled last appointments. She is always seen without family or supportive member with her, the concern is missing the window to be able to treat with surgical intent of her cancer. I have called the daughter today and left message. She states she has appointment with [facility] surgeon next week. She represents to emergency due to worsening epigastric pain, nausea and vomiting. Cramping with eating. 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, head tremor History of Any Multi-Drug Resistant Organisms: None Reported Past Surgical History: Orthopedic Surgery, Tubal Ligation Additional Past Surgical History / Comment(s): 2 pins right hip-dislocated 1975 Past Anesthesia/Blood Transfusion Reactions: No Reported Reaction Past Psychological History: Anxiety, Depression Smoking Status: Current every day smoker Past Alcohol Use History: Daily Past Drug Use History: None Reported - Past Family History Mother Family Medical History: Liver Disease Father Family Medical History: Cancer Additional Family Medical History / Comment(s): Lung and liver cancer. Medications and Allergies Home Medications Medication Instructions Recorded Confirmed Type amLODIPine BESYLATE/BENAZEPRIL 1 cap PO DAILY 09/25/13 11/27/20 History [amLODIPine BESYLATE/BENAZEPRIL 10-40 MG] Gabapentin [Neurontin] 300 mg PO BID PRN 12/06/16 11/27/20 History Albuterol Sulfate [Albuterol 2 puff INHALATION RT-Q4H PRN 09/04/20 11/27/20 History Sulfate Hfa] Omeprazole 40 mg PO DAILY 09/24/20 11/27/20 History Acetaminophen Tab [Tylenol] 650 mg PO Q4HR PRN tab 10/31/20 11/27/20 Rx Magnesium Oxide 400 mg PO DAILY #30 tablet 10/31/20 11/27/20 Rx Potassium Chloride [Potassium 10 meq PO DAILY 30 Days #30 10/31/20 11/27/20 Rx Chloride ER] tablet.er traMADol HCL 50 mg PO Q6H PRN #120 tablet 11/12/20 11/27/20 Rx Famotidine 40 mg PO BID 11/24/20 11/27/20 History Lipase/Protease/Amylase [Zenpep Dr 1 cap PO 5XD PRN 11/24/20 11/27/20 History 5,000 Unit Capsule] Allergies Allergy/AdvReac Type Severity Reaction Status Date / Time erythromycin base AdvReac Nausea Verified 11/27/20 16:35 [Erythromycin Base] Physical Exam Vitals: Vital Signs Temp Pulse Resp BP Pulse Ox 11/28/20 06:52 98.8 F 86 16 163/94 100 11/27/20 22:30 78 20 162/88 11/27/20 20:37 82 20 173/95 98 11/27/20 16:32 98.7 F 82 16 131/72 100 Intake and Output 11/27/20 11/28/20 11/28/20 22:59 06:59 14:59 Other: Voiding Method Toilet Weight 49.895 kg 49.895 kg - Constitutional General appearance: cooperative, mild distress, thin - EENT Eyes: anicteric sclerae, EOMI, poor dentition ENT: hearing grossly normal - Neck Neck: no lymphadenopathy - Respiratory Respiratory: bilateral: CTA - Cardiovascular Rhythm: regular Heart sounds: normal: S1, S2 Abnormal Heart Sounds: no systolic murmur, no diastolic murmur, no rub, no S3 Gallop, no S4 Gallop, no click, no other leg Peripheral Edema: bilateral: None - Gastrointestinal General gastrointestinal: no absent bowel sounds, no decreased bowel sounds, no distended, no hepatomegaly, no hyperactive bowel sounds, normal bowel sounds, no organomegaly, no rigid, no scaphoid, soft, no splenomegaly, tenderness, no umbilical hernia, no ventral hernia - Neurologic Neurologic: CNII-XII intact - Musculoskeletal Musculoskeletal: strength equal bilaterally - Psychiatric Psychiatric: A&O x's 3, appropriate affect, intact judgment & insight Results CBC & Chem 7: 11/28/20 09:23 11/28/20 09:23 Labs: Abnormal Lab Results - Last 24 Hours (Table) 11/27/20 11/27/20 11/27/20 Range/Units 19:09 19:09 19:09 WBC 13.0 H (3.8-10.6) k/uL Plt Count 755 H (150-450) k/uL Neutrophils # 10.4 H (1.3-7.7) k/uL Sodium 129 L (137-145) mmol/L Chloride 97 L (98-107) mmol/L BUN 5 L (7-17) mg/dL Creatinine 0.34 L (0.52-1.04) mg/dL Glucose 129 H (74-99) mg/dL POC Glucose (mg/dL) (75-99) mg/dL AST 66 H (14-36) U/L Alkaline Phosphatase 429 H (38-126) U/L Total Protein 6.1 L (6.3-8.2) g/dL Albumin 2.9 L (3.5-5.0) g/dL Urine Appearance Cloudy H (Clear) Urine Protein 1+ H (Negative) Urine Bilirubin 1+ H (Negative) Ur Leukocyte Esterase Moderate H (Negative) Urine WBC 8 H (0-5) /hpf Ur Squamous Epith Cells 18 H (0-4) /hpf Urine Bacteria Rare H (None) /hpf Urine Mucus Few H (None) /hpf 11/28/20 Range/Units 07:36 WBC (3.8-10.6) k/uL Plt Count (150-450) k/uL Neutrophils # (1.3-7.7) k/uL Sodium (137-145) mmol/L Chloride (98-107) mmol/L BUN (7-17) mg/dL Creatinine (0.52-1.04) mg/dL Glucose (74-99) mg/dL POC Glucose (mg/dL) 142 H (75-99) mg/dL AST (14-36) U/L Alkaline Phosphatase (38-126) U/L Total Protein (6.3-8.2) g/dL Albumin (3.5-5.0) g/dL Urine Appearance (Clear) Urine Protein (Negative) Urine Bilirubin (Negative) Ur Leukocyte Esterase (Negative) Urine WBC (0-5) /hpf Ur Squamous Epith Cells (0-4) /hpf Urine Bacteria (None) /hpf Urine Mucus (None) /hpf Assessment and Plan Plan: Assessment and Plan (1) Abdominal pain Current Visit: Yes Status: Acute Priority: High Code(s): R10.9 - UNSPECIFI ED ABDOMINAL PAIN SNOMED Code(s): 43796927 (2) Pancreatic cancer Current Visit: Yes Status: Acute Priority: High Code(s): C25.9 - MALIGNANT NEOPLASM OF PANCREAS, UNSPECIFIED SNOMED Code(s): 759523477 Plan: Pt is a surgical candidate for her pancreatic adenocarcinoma, needs to plan for neoadjuvant therapy and go back to Dr. Pranav CABALLERO although she has yet to do this. Rediscussed today and attempted to call daughter as no family members are present when she has been at visits or inpatient. - She states appointment is 12/04 She does admit to transporatation as a difficulty although at last visit Social work provided patient with information from the [employer] for assistance with rides Re-education on PPI/H2 and pancreatic enzyme use with meals. Will ask dieticien to evaluate for correct dosage on pancreatic enzymes Add bentyl for abdominal cramping as well Physician attest: I have completed the full history and physical and agree with above dictation, dictated as a scribe.
[2020-11-29] MEDS: SODIUM CHLORIDE 0.9% 1,000 ML IV SCH ×2 (00:27→08:50)
[2020-11-29] MEDS: FAMOTIDINE 20 MG TAB PO SCH ×3 (08:52→19:51)
[2020-11-29] MEDS: PANTOPRAZOLE 40 MG TABLET PO SCH (08:53)
[2020-11-29] MEDS: HEPARIN SODIUM,PORCINE/PF 5,000 UNIT/0.5 ML SYRINGE SQ SCH ×2 (08:53→20:46)
[2020-11-29] MEDS: amLODIPine 10 MG TAB PO SCH (08:53)
[2020-11-29] MEDS: MAGNESIUM OXIDE 400 MG TAB PO SCH (08:53)
[2020-11-29] MEDS: lisinopriL 20 MG TAB PO SCH (08:53)
[2020-11-29] MEDS: traMADol 50 MG TAB PO PRN (08:59)
[2020-11-29] MEDS: polyethylene glycoL 3350 17 GM POWD.PACK PO SCH (11:07)
[2020-11-29 13:58] VITALS: BMI 17.2
--- NOTE | 2020-11-29 14:33 | P.PN ---
Subjective Progress Note Date: 11/29/20 Principal diagnosis: Abdominal pain, pancreatic adenocarcinoma 65-year-old female who recently was diagnosed with pancreatic cancer who is following with [facility] and scheduled for surgery on 12/04/2020 came to the emergency department with complaints of abdominal pain associated with nausea. Today the patient is seen and examined states abdominal pain is improving. She is tolerating a clear liquid diet and would like to advance. Patient states she's not had a bowel movement in 5-6 days, not taking her MiraLAX at home. MiraLAX ordered. Objective - Vital Signs Vital signs: Vital Signs Temp 98.9 F 11/29/20 06:16 Pulse 78 11/29/20 05:00 Resp 16 11/29/20 05:00 BP 150/78 11/29/20 05:00 Pulse Ox 97 11/29/20 05:00 Intake & Output 11/28/20 11/29/20 11/29/20 18:59 06:59 18:59 Intake Total 680 950 Balance 680 950 Weight 49.895 kg Intake: Intake, IV Titration 950 Amount Sodium Chloride 0.9% 1, 900 000 ml @ 75 mls/hr IV . [id number] JUAN Rx#:[id number] cefTRIAXone 1 gm In 50 Sodium Chloride 0.9% 50 ml @ 100 mls/hr IVPB Q24HR JUAN Rx#:[id number] Oral 680 Other: Voiding Method Toilet Toilet # Voids 3 1 - Exam General appearance: The patient is alert, oriented, appears in no acute distress. HET: Head is normocephalic and atraumatic. Conjunctiva pink. Sclera anicteric. Neck: Supple without lymphadenopathy. Abdomen: Soft, thin, nontender, nondistended with bowel sounds. No guarding or rigidity. Extremities: Normal skin color and turgor. No pedal edema Skin: No rashes, no jaundice Neurological: No focal deficits. Alert and oriented 3. - Labs CBC & Chem 7: 11/28/20 09:23 11/28/20 09:23 Labs: Abnormal Lab Results - Last 24 Hours (Table) 11/28/20 11/28/20 11/28/20 Range/Units 09:23 09:23 09:23 RBC 3.79 L (3.80-5.40) m/uL Hgb 10.5 L (11.4-16.0) gm/dL Hct 32.7 L (34.0-46.0) % Plt Count 711 H (150-450) k/uL Neutrophils # 8.9 H (1.3-7.7) k/uL Lymphocytes # 0.7 L (1.0-4.8) k/uL Sodium 130 L (137-145) mmol/L Potassium 3.2 L (3.5-5.1) mmol/L BUN 3 L (7-17) mg/dL Creatinine 0.35 L (0.52-1.04) mg/dL Glucose 226 H (74-99) mg/dL Calcium 8.3 L (8.4-10.2) mg/dL Alkaline Phosphatase 313 H (38-126) U/L Total Protein 5.2 L (6.3-8.2) g/dL Albumin 2.4 L (3.5-5.0) g/dL CA 19-9 Antigen 83.6 H (0.0-34.9) U/mL Assessment and Plan (1) Abdominal pain Narrative/Plan: 65-year-old -[place] female who presented to the emergency department with increased abdominal pain mostly in the right upper quadrant and epigastric region. Patient was recently diagnosed with pancreatic adenocarcinoma after being evaluated in August for an ALLERGIC reaction to jellybeans and was noted to have elevated LFTs. At that time she underwent abdominal ultrasound was ordered which found a dilated common bile duct pancreatic head. MRCP could be obtained if clinically warranted. Both the liver and gallbladder are within normal limits. She underwent an MRCP during that admission that showed confirmation of mild to moderate biliary dilation and moderate pancreatic ductal dilation with abrupt cutoff, there is suspected 3.8 cm pancreatic head mass or neoplasm. The patient was transferred to [facility] for EUS, she underwent ERCP and EUS with a stent placement. She's been following with [facility] for her pancreatic adenocarcinoma. She is scheduled for surgery 12/04/2020. She is also following with oncology. She states that she was having increased abdominal pain associated with nausea but no vomiting so she presented to the emergency department. She underwent a CT of the abdomen and pelvis that showed chronic pancreatitis. Today's labs show total bilirubin 0.7, AST 36, ALT 20, alk phos 313 on admission she had a normal amylase and lipase. Current Visit: Yes Status: Acute Priority: High Code(s): R10.9 - UNSPECIFIED ABDOMINAL PAIN SNOMED Code(s): 57916324 (2) Pancreatic cancer Narrative/Plan: Patient has appointment for [facility] for impending surgery on 12/04/2020, is being followed by oncology Current Visit: Yes Status: Acute Priority: High Code(s): C25.9 - MALIGNANT NEOPLASM OF PANCREAS, UNSPECIFIED SNOMED Code(s): 741628501 (3) Chronic pancreatitis Current Visit: Yes Status: Acute Code(s): K86.1 - OTHER CHRONIC PANCREATITIS SNOMED Code(s): 230434501 Plan: 1. Continue symptomatic and supportive care 2. Patient may have full liquid diet, advance as tolerated 3. Pain medication as needed 4. Patient to follow-up [facility], is scheduled for surgery on 12/04/2020 5. Continue to follow with oncology Thank you for allowing us to participate in the care of the patient, the GI service will sign off, gastroenterology will not be available at the hospital this weekend and if further evaluation by gastroenterology is required the patient will need transfer as per the primary team's discretion. Dr. Kingsley Quiles I agree with the dictator's note, documented as a scribe by Nelia Holman.
[2020-11-29 18:09] LABS: African American GFR (CKD) >90 (>60 ml/min/1.73 sqM); Anion Gap 5 mmol/L; Blood Urea Nitrogen 2 mg/dL (7-17); Calcium 8.2 mg/dL (8.4-10.2); Carbon Dioxide 20 mmol/L (22-30); Chloride 102 mmol/L (98-107); Glucose 113 mg/dL (74-99); Magnesium 1.5 mg/dL (1.6-2.3); Non-African American GFR(CKD) >90 (>60 ml/min/1.73 sqM); Potassium 3.8 mmol/L (3.5-5.1); Sodium 127 mmol/L (137-145)
[2020-11-29] MEDS ORDERED: MAGNESIUM SULFATE-D5W PMX 1 GM in DEXTROSE/WATER 1 100ML.BAG IVPB ONE (18:34)
[2020-11-29] MEDS ORDERED: traMADol 50 MG TAB PO PRN (21:57)
--- NOTE | 2020-11-29 22:01 | P.PN ---
Subjective This is a pleasant 65 years old -[place] female with past medical history of pancreatic cancer, abdominal pain, diabetes mellitus, hypertension, hyperlipidemia, osteoarthritis, chronic back pain with sciatica. Presents to the hospital with recurrent epigastric abdominal pain over the last month. Presents this time also with increasing abdominal pain, which went 8/10 shooting to 10/10 when it comes and cramps more severe. Rest with eating. She vomited 3 times over the last week, last time 3 days to 4 days ago. No diarrhea. No chest pain or dyspnea. No fever She supposed to have pancreatic cancer surgery as per patient with Dr. lopez at [facility] in [facility] next week on 12/04 Vitals are stable She has mild chronic leukocytosis with WBC 10.5-13, platelet count 755, hemoglobin normal currently its@13 K. INR is 0.9 Sodium 129, she has chronic hyponatremia sodium 125-132 potassium normal at 3.5, creatinine 0.3, AST slightly elevated at 66, ALT normal at 28, troponin is negative less than 0.012. Lipase is 40 Abdominal x-ray: No acute process CT of the abdomen and pelvis with contrast: Small pelvic fluid, otherwise no acute abnormality. Stable common bile duct stent with associated pneumobilia. Chronic pancreatitis with moderate to marked pancreatic duct dilatation She was placed on normal saline at 75 mL/h and given morphine 4 mg 11/30/2020 Patient is with significant improvement in her abdominal pain, she does not need any morphine and she agrees to continue with Ultram 50 mg which is home dose instead of 100 mg. She tolerates diet well Her UTI is being treated with ceftriaxone. Patient hemodynamically stable and she could be discharged today. Patient was cleared for discharge by both GI and oncology service. I discussed the importance of close outpatient follow-up with her surgeon at [facility] and she agrees to go on follow-up with her surgeon on 12/04. Also I discussed plan of care with her daughter germán home the patient called her by her cell phone. Ductal her the importance of getting surgery as soon as possible, she confirmed to me that her mother has appointment on 12/04 for surgery that she will make sure that her mother will follow-up. However discharge was held because morning lab did not come until after 6 PM although me at bedside nurse called lab several times, they informed that sample was sent to [place]. By the time labs, it was delivered for the patient to go home. Sodium is 127, magnesium 1.5 which is replaced. Possible discharge tomorrow Also I made appointment for the patient with Dr. stallings this coming Saturday 12/02, I discussed the case with her nurse practitioner Sharri Mcbride, including the importance of repeat in urine analysis for her UTI and follow-up with [facility] on 12/04 for surgical resection of her pancreatic cancer and she kindly took note of these recommendations. Patient and her daughter are aware of her appointment with Dr. stallings this coming Wednesday Objective - Vital Signs Vital signs: Vital Signs Temp 97.9 F 11/29/20 19:24 Pulse 65 11/29/20 19:24 Resp 16 11/29/20 19:24 BP 151/73 11/29/20 19:24 Pulse Ox 100 11/29/20 19:24 Intake & Output 11/29/20 11/29/20 11/30/20 06:59 18:59 06:59 Intake Total 950 750 100 Balance 950 750 100 Weight 49.895 kg Intake: Intake, IV Titration 950 750 100 Amount Magnesium Sulfate-D5w Pmx 100 1 gm In Dextrose/Water 1 100ml.bag @ 100 mls/hr IVPB ONCE ONE Rx#: [id number] Sodium Chloride 0.9% 1, 900 750 000 ml @ 75 mls/hr IV . [id number] COUNTS INCLUDE 234 BEDS AT [facility] Rx#:[id number] cefTRIAXone 1 gm In 50 Sodium Chloride 0.9% 50 ml @ 100 mls/hr IVPB Q24HR COUNTS INCLUDE 234 BEDS AT THE [facility] Rx#:[id number] Other: Voiding Method Toilet Toilet # Voids 1 - Exam -GENERAL: The patient is alert and oriented x3, not in any acute distress. Thin built HEENT: Pupils are round and equally reacting to light. EOMI. No scleral icterus. No conjunctival pallor. Normocephalic, atraumatic. No pharyngeal erythema. No thyromegaly. CARDIOVASCULAR: S1 and S2 present. No murmurs, rubs, or gallops. PULMONARY: Chest is clear to auscultation, no wheezing or crackles. -ABDOMEN: Soft, mild epigastric tenderness, no rebound tenderness, nondistended, normoactive bowel sounds. No palpable organomegaly. MUSCULOSKELETAL: No joint swelling or deformity. EXTREMITIES: No cyanosis, clubbing, or pedal edema. NEUROLOGICAL: Gross neurological examination did not reveal any focal deficits. SKIN: No rashes. no petechiae. - Labs CBC & Chem 7: 11/28/20 09:11/29/20 06:00 Labs: Abnormal Lab Results - Last 24 Hours (Table) 11/28/20 11/29/20 Range/Units : 06:00 Sodium 127 L (137-145) mmol/L Carbon Dioxide 20 L (22-30) mmol/L BUN 2 L (7-17) mg/dL Creatinine 0.29 L (0.52-1.04) mg/dL Glucose 113 H (74-99) mg/dL Calcium 8.2 L (8.4-10.2) mg/dL Magnesium 1.5 L (1.6-2.3) mg/dL CA 19-9 Antigen 83.6 H (0.0-34.9) U/mL Assessment and Plan Assessment: Episodic epigastric Abdominal pain and tenderness especially with meals, associated with her recent diagnosis of pancreatic cancer, with dilated pancreatic duct Acute urinary tract infection Pancreatic cancer Hyponatremia and hypomagnesemia Chronic pancreatitis Chronic leukocytosis Chronic hyponatremia Mild calories protein malnutrition Hypertension Hyperlipidemia Diabetes mellitus Osteoarthritis Chronic back pain with sciatic Plan: This is a pleasant 65 years old female who presents with recurrent abdominal pain. Continue with gentle hydration, continue with Protonix and pancreatic enzyme. Pain management, increase her home dose of Ultram 5200 mg Consult oncology team. Consult GI team Labs and medication were reviewed.. Continue same treatment. Continue with symptomatic treatment. Resume home medication. Monitor lytes and vitals. DVT and GI prophylaxis. Further recommendations depends on the clinical course of the patient DVT prophylaxis: Subcutaneous heparin GI Prophylaxis: Ppi Prognosis is guarded
[2020-11-30 04:57] VITALS: BP 162/73; PULSE 71; RESP 18; TEMP 98
[2020-11-30] MEDS: HEPARIN SODIUM,PORCINE/PF 5,000 UNIT/0.5 ML SYRINGE SQ SCH (08:50)
[2020-11-30] MEDS: lisinopriL 20 MG TAB PO SCH (08:50)
[2020-11-30] MEDS: PANTOPRAZOLE 40 MG TABLET PO SCH (08:50)
[2020-11-30] MEDS: amLODIPine 10 MG TAB PO SCH (08:51)
[2020-11-30] MEDS: MAGNESIUM OXIDE 400 MG TAB PO SCH (08:51)
[2020-11-30] MEDS: polyethylene glycoL 3350 17 GM POWD.PACK PO SCH (08:52)
[2020-11-30 09:21] LABS: Magnesium 1.7 mg/dL (1.6-2.3); Potassium 3.9 mmol/L (3.5-5.1)
[2020-11-30] MEDS ORDERED: POTASSIUM CHLORIDE ER 20 MEQ TAB.ER PO STA (10:41)
--- NOTE | 2020-11-30 21:53 | P.DS ---
Providers Date of admission: 11/27/20 21:36 Attending physician: Yvrose Brito Consults: 11/28/20 07:16 Consult Physician Urgent Consulting Provider: Anand Muller Consult Reason/Comments: Abdominal pain, history of pancreatic cancer Do you want consulting provider notified?: Yes 11/28/20 07:19 Consult Physician Urgent Consulting Provider: Krystle Quiles Consult Reason/Comments: Recurrent abdominal pain with pancreatic duct dilatation Do you want consulting provider notified?: Yes Primary care physician: Sheron Lorenz Hospital Course: Diagnoses: Episodic epigastric Abdominal pain and tenderness especially with meals, associated with her recent diagnosis of pancreatic cancer, with dilated pancreatic duct Acute urinary tract infection Pancreatic cancer Hyponatremia and hypomagnesemia Chronic pancreatitis Chronic leukocytosis Chronic hyponatremia Mild calories protein malnutrition Hypertension Hyperlipidemia Diabetes mellitus Osteoarthritis Chronic back pain with sciatic Hospital course: This is a pleasant 65 years old -Tongan female with past medical history of pancreatic cancer, abdominal pain, diabetes mellitus, hypertension, hyperlipidemia, osteoarthritis, chronic back pain with sciatica. Presents to the hospital with recurrent epigastric abdominal pain over the last month. Presents this time also with increasing abdominal pain, CT of the abdomen and pelvis with contrast: Small pelvic fluid, otherwise no acute abnormality. Stable common bile duct stent with associated pneumobilia. Chronic pancreatitis with moderate to marked pancreatic duct dilatation She supposed to have pancreatic cancer surgery as per patient with Dr. lopez at [facility] in [facility] next week on 12/04 Patient has been evaluated by oncology and GI service and they recommended patient to follow-up for getting her surgery as soon as possible, patient informed and she agrees. Her pain is controlled with her regular dose of Ultram 50 mg 4 times a day when necessary which she hasn't home. She tolerates diet, she is constipated and ask for laxative. However her abdominal pain is minimal and easily controlled with pain medication especially after eating. Also patient has been treated for UTI with ceftriaxone. Patient symptoms and clinically improved. Also I made appointment for the patient with Dr. sheron navarro coming Saturday 12/02, I discussed the case with her nurse practitioner Sharri Mcbride, including the importance of repeat in urine analysis for her UTI and follow-up with [facility] on 12/04 for surgical resection of her pancreatic cancer and she kindly took note of these recommendations. Patient and her daughter are aware of her appointment with Dr. sheron navarro coming Wednesday I discussed the importance of close outpatient follow-up with her surgeon at [facility] and she agrees to go on follow-up with her surgeon on 12/04. Also I discussed plan of care with her daughter germán and management plan and she, she'll make sure she will get to her surgery on 12/04 On the day of discharge patient denies any other symptoms and she was pleasant, sitting up in bed and agreed to go home today. Problems and management plan were discussed with the patient and he verbalized understanding and acceptance Patient was found stable and can be discharged home however he needs follow-up as an outpatient. Patient was instructed to follow up with PCP Dr. stallings and she agrees with the appointments made for her on 12/02 stated she will follow-up Was instructed to follow up with Dr. Rogers johnson in 1-3 weeks and she agrees Physical exam Gen: patient is a AAOx3, no distress CVS: S1-S2, RRR, no murmur Lungs: B/L CTA, no wheezing -Abdomen: soft, no distention, mild epigastric tenderness, no rebound tenderness or guarding, abdomen is soft with positive bowel sounds Extremity: no leg edema or induration Time spent more than 35 minutes Patient Condition at Discharge: Serious Plan - Discharge Summary New Discharge Prescriptions: New polyethylene glycoL 3350 [Miralax] 17 gm PO DAILY PRN 3 Days #3 packet PRN Reason: Constipation Cefuroxime Axetil [Ceftin] 500 mg PO BID 3 Days #6 tab Continue amLODIPine BESYLATE/BENAZEPRIL [amLODIPine BESYLATE/BENAZEPRIL 10-40 MG] 1 cap PO DAILY Gabapentin [Neurontin] 300 mg PO BID PRN PRN Reason: Pain Albuterol Sulfate [Albuterol Sulfate Hfa] 2 puff INHALATION RT-Q4H PRN PRN Reason: Shortness Of Breath Omeprazole 40 mg PO DAILY Acetaminophen Tab [Tylenol] 650 mg PO Q4HR PRN tab PRN Reason: Fever And/ Or Pain traMADol HCL 50 mg PO Q6H PRN #120 tablet PRN Reason: Pain Magnesium Oxide 400 mg PO DAILY #30 tablet Potassium Chloride [Potassium Chloride ER] 10 meq PO DAILY 30 Days #30 tablet.er Famotidine 40 mg PO BID Lipase/Protease/Amylase [Zenpep Dr 5,000 Unit Capsule] 1 cap PO 5XD PRN PRN Reason: before meals & w/snacks Discharge Medication List amLODIPine BESYLATE/BENAZEPRIL [amLODIPine BESYLATE/BENAZEPRIL 10-40 MG] 1 cap PO DAILY 09/25/13 [History] Gabapentin [Neurontin] 300 mg PO BID PRN 12/06/16 [History] Albuterol Sulfate [Albuterol Sulfate Hfa] 2 puff INHALATION RT-Q4H PRN 09/04/20 [History] Omeprazole 40 mg PO DAILY 09/24/20 [History] Acetaminophen Tab [Tylenol] 650 mg PO Q4HR PRN tab 10/31/20 [Rx] Magnesium Oxide 400 mg PO DAILY #30 tablet 10/31/20 [Rx] Potassium Chloride [Potassium Chloride ER] 10 meq PO DAILY 30 Days #30 tablet.er 10/31/20 [Rx] traMADol HCL 50 mg PO Q6H PRN #120 tablet 11/12/20 [Rx] Famotidine 40 mg PO BID 11/24/20 [History] Lipase/Protease/Amylase [Zenpep Dr 5,000 Unit Capsule] 1 cap PO 5XD PRN 11/24/20 [History] Cefuroxime Axetil [Ceftin] 500 mg PO BID 3 Days #6 tab 11/29/20 [Rx] polyethylene glycoL 3350 [Miralax] 17 gm PO DAILY PRN 3 Days #3 packet 11/29/20 [Rx] Follow up Appointment(s)/Referral(s): Anand Muller MD [STAFF PHYSICIAN] - 1 Week Sheron Lorenz MD [Primary Care Provider] - 12/02/20 1:15 pm Patient Instructions/Handouts: Cefuroxime (By mouth), Polyethylene Glycol 3350 (By mouth), Chronic Pain (DC), Pancreatic Cancer (DC) Activity/Diet/Wound Care/Special Instructions: resume previous diet activity is restricted till you see your doctor Discharge Disposition: HOME SELF-CARE
== END 2020-11-30 12:48 | disposition home or self-care (01) ==
LOC: EC 16:04 → 5NMEDONC 21:36
PROVIDERS: ADMIT Hospitalist; ATTEND Hospitalist
DX: C25.9 Malignant neoplasm of pancreas, unspecified (principal); R10.13 Epigastric pain; N39.0 Urinary tract infection, site not specified; Z20.822 Contact with and (suspected) exposure to COVID-19; E83.42 Hypomagnesemia; E78.5 Hyperlipidemia, unspecified; E87.1 Hypo-osmolality and hyponatremia; K86.1 Other chronic pancreatitis; I10 Essential (primary) hypertension; Z79.899 Other long term (current) drug therapy; Z83.3 Family history of diabetes mellitus; E44.1 Mild protein-calorie malnutrition; E11.9 Type 2 diabetes mellitus without complications; F17.200 Nicotine dependence, unspecified, uncomplicated; F32.9 Major depressive disorder, single episode, unspecified; F41.9 Anxiety disorder, unspecified; G89.29 Other chronic pain; K59.00 Constipation, unspecified; K80.50 Calculus of bile duct without cholangitis or cholecystitis without obstruction; M19.90 Unspecified osteoarthritis, unspecified site; M81.0 Age-related osteoporosis without current pathological fracture
CPT/HCPCS: 96361 ×3; 96365; 96366; 96367; 96372; 96376; 96375; 99285; 36415; 93005; 80051; 80053 ×2; 80048; 82150; 83690; 83735 ×2; 84484; 85025 ×2; 85610; 85730; 81001; 86301; 87635; 71045; 74177; G0378 ×4; J2270 ×2; J0696 ×3; J3475; Q9967; J1644

== ENCOUNTER 2020-12-13 11:48 | Inpatient (IN) | payer MEDICARE, OTHER ==
[2020-12-13] MEDS ORDERED: SODIUM CHLORIDE 0.9% 1,000 ML IV STA (13:04)
[2020-12-13 13:24] LABS: ALT 26 U/L (4-34); AST 48 U/L (14-36); African American GFR (CKD) >90 (>60 ml/min/1.73 sqM); Alkaline Phosphatase 416 U/L (38-126); Amylase 53 U/L (30-110); Anion Gap 8 mmol/L; Basophils % (A) 0 %; Blood Urea Nitrogen 4 mg/dL (7-17); Calcium 8.7 mg/dL (8.4-10.2); Carbon Dioxide 22 mmol/L (22-30); Chloride 98 mmol/L (98-107); Eosinophils # (A) 0.2 k/uL (0-0.7); Eosinophils % (A) 1 %; Glucose 154 mg/dL (74-99); HCT 37.5 % (34.0-46.0); HGB 11.9 gm/dL (11.4-16.0); Lipase 123 U/L (23-300); Lymphocytes # (A) 1.5 k/uL (1.0-4.8); Lymphocytes % (A) 12 %; MCH 26.5 pg (25.0-35.0); MCHC 31.8 g/dL (31.0-37.0); MCV 83.3 fL (80.0-100.0); Magnesium 1.6 mg/dL (1.6-2.3); Mean Platelet Volume 7.7; Monocytes # (A) 0.6 k/uL (0-1.0); Monocytes % (A) 4 %; Neutrophils # (A) 10.7 k/uL (1.3-7.7); Neutrophils % (A) 81 %; Non-African American GFR(CKD) >90 (>60 ml/min/1.73 sqM); Platelet Count 526 k/uL (150-450); Potassium 3.6 mmol/L (3.5-5.1); Sodium 128 mmol/L (137-145); Total Bilirubin 0.9 mg/dL (0.2-1.3); Total Protein 6.5 g/dL (6.3-8.2); WBC 13.2 k/uL (3.8-10.6)
[2020-12-13] MEDS ORDERED: MORPHINE SULFATE 4 MG/ML SYRINGE IVP STA (13:37)
[2020-12-13] MEDS ORDERED: ONDANSETRON 4 MG/2 ML VIAL IVP STA (13:37)
--- NOTE | 2020-12-13 13:43 | ED ---
General Adult HPI - General Chief complaint: Abdominal Pain Stated complaint: Abdominal Pain Time Seen by Provider: 12/13/20 12:37 Source: patient Mode of arrival: ambulatory Limitations: no limitations - History of Present Illness Initial comments: 65-year-old female with a past medical history of pancreatic cancer, abdominal pain, diabetes mellitus, hyperlipidemia, hypertension presents to the emergency room for a chief complaint of abdominal pain. This abdominal pain has been chronic for over a month now. States that it has continued to worsen. She does take tramadol at home. States it is related to her pancreatic cancer. She is supposed to have chemotherapy starting next week. Patient did go to her surgeon's office in [place] last week at her appointment and was told it is not surgical because it is too high of a risk. Patient states she is on a wet today because her tramadol at home is not working and she cannot have the surgery. Patient has no other complaints at this time including shortness of breath, chest pain, abdominal pain, nausea or vomiting, headache, or visual changes. - Related Data Home Medications Medication Instructions Recorded Confirmed amLODIPine BESYLATE/BENAZEPRIL 1 cap PO DAILY 09/25/13 11/27/20 [amLODIPine BESYLATE/BENAZEPRIL 10-40 MG] Gabapentin [Neurontin] 300 mg PO BID PRN 12/06/16 11/27/20 Albuterol Sulfate [Albuterol 2 puff INHALATION RT-Q4H PRN 09/04/20 11/27/20 Sulfate Hfa] Omeprazole 40 mg PO DAILY 09/24/20 11/27/20 Famotidine 40 mg PO BID 11/24/20 11/27/20 Lipase/Protease/Amylase [Zenpep Dr 1 cap PO 5XD PRN 11/24/20 11/27/20 5,000 Unit Capsule] Previous Rx's Medication Instructions Recorded Acetaminophen Tab [Tylenol] 650 mg PO Q4HR PRN tab 10/31/20 Magnesium Oxide 400 mg PO DAILY #30 tablet 10/31/20 Potassium Chloride [Potassium 10 meq PO DAILY 30 Days #30 10/31/20 Chloride ER] tablet.er traMADol HCL 50 mg PO Q6H PRN #120 tablet 11/12/20 Cefuroxime Axetil [Ceftin] 500 mg PO BID 3 Days #6 tab 11/29/20 polyethylene glycoL 3350 [Miralax] 17 gm PO DAILY PRN 3 Days #3 packet 11/29/20 Allergies Allergy/AdvReac Type Severity Reaction Status Date / Time erythromycin base AdvReac Nausea Verified 12/13/20 12:15 [Erythromycin Base] Review of Systems ROS Statement: Those systems with pertinent positive or pertinent negative responses have been documented in the HPI. ROS Other: All systems not noted in ROS Statement are negative. 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, head tremor History of Any Multi-Drug Resistant Organisms: None Reported Past Surgical History: Orthopedic Surgery, Tubal Ligation Additional Past Surgical History / Comment(s): 2 pins right hip-dislocated 1975 Past Anesthesia/Blood Transfusion Reactions: No Reported Reaction Past Psychological History: Anxiety, Depression Smoking Status: Current every day smoker Past Alcohol Use History: Daily Past Drug Use History: None Reported - Past Family History Mother Family Medical History: Liver Disease Father Family Medical History: Cancer Additional Family Medical History / Comment(s): Lung and liver cancer. General Exam Limitations: no limitations General appearance: alert, in no apparent distress Head exam: Present: atraumatic Eye exam: Present: normal appearance, PERRL, EOMI. Absent: scleral icterus, conjunctival injection ENT exam: Present: normal exam, mucous membranes moist Neck exam: Present: normal inspection, full ROM. Absent: tenderness Respiratory exam: Present: normal lung sounds bilaterally. Absent: respiratory distress, wheezes Cardiovascular Exam: Present: regular rate, normal rhythm, normal heart sounds GI/Abdominal exam: Present: soft, tenderness (Generalized abdominal tenderness.). Absent: distended Course Vital Signs 12/13/20 12/13/20 12:12 13:47 Temperature 98.1 F Pulse Rate 91 84 Respiratory 20 16 Rate Blood Pressure 121/79 185/92 O2 Sat by Pulse 100 97 Oximetry Medical Decision Making - Medical Decision Making CT report from previous visit this month was reviewed. This showed a stable CBD stent with associated pneumobilia as well as a redemonstrated a chronic pancreatitis with moderate to marked pancreatic ductal dilation. Today laboratory evaluation was obtained. Patient does have some leukocytosis and t hrombocytosis however this is largely chronic. CMP does show some hyponatremia as well as transaminitis. Multiple doses of pain medication, continues to have pain. Patient will be admitted to medicine. Dr. Muller will be consulted. - Lab Data Result diagrams: 12/13/20 13:05 12/13/20 13:05 Lab Results 12/13/20 12/13/20 Range/Units 13:05 13:05 WBC 13.2 H (3.8-10.6) k/uL RBC 4.50 (3.80-5.40) m/uL Hgb 11.9 (11.4-16.0) gm/dL Hct 37.5 (34.0-46.0) % MCV 83.3 (80.0-100.0) fL MCH 26.5 (25.0-35.0) pg MCHC 31.8 (31.0-37.0) g/dL RDW 14.0 (11.5-15.5) % Plt Count 526 H (150-450) k/uL MPV 7.7 Neutrophils % 81 % Lymphocytes % 12 % Monocytes % 4 % Eosinophils % 1 % Basophils % 0 % Neutrophils # 10.7 H (1.3-7.7) k/uL Lymphocytes # 1.5 (1.0-4.8) k/uL Monocytes # 0.6 (0-1.0) k/uL Eosinophils # 0.2 (0-0.7) k/uL Basophils # 0.0 (0-0.2) k/uL Sodium 128 L (137-145) mmol/L Potassium 3.6 (3.5-5.1) mmol/L Chloride 98 (98-107) mmol/L Carbon Dioxide 22 (22-30) mmol/L Anion Gap 8 mmol/L BUN 4 L (7-17) mg/dL Creatinine 0.32 L (0.52-1.04) mg/dL Est GFR (CKD-EPI)AfAm >90 (>60 ml/min/1.73 sqM) Est GFR (CKD-EPI)NonAf >90 (>60 ml/min/1.73 sqM) Glucose 154 H (74-99) mg/dL Calcium 8.7 (8.4-10.2) mg/dL Magnesium 1.6 (1.6-2.3) mg/dL Total Bilirubin 0.9 (0.2-1.3) mg/dL AST 48 H (14-36) U/L ALT 26 (4-34) U/L Alkaline Phosphatase 416 H (38-126) U/L Total Protein 6.5 (6.3-8.2) g/dL Albumin 3.0 L (3.5-5.0) g/dL Amylase 53 (30-110) U/L Lipase 123 (23-300) U/L Disposition Clinical Impression: Intractable abdominal pain, Hyponatremia, Pancreatic cancer Disposition: ADMITTED IP TO THIS HOSP Is patient prescribed a controlled substance at d/c from ED?: No Referrals: Sheron Lorenz MD [Primary Care Provider] - 1-2 days Time of Disposition: 14:20
[2020-12-13] MEDS ORDERED: HYDROmorphone 0.5 MG/0.5 ML SYRINGE IVP STA (14:10)
[2020-12-13] MEDS ORDERED: NALOXONE 0.4 MG/ML 1 ML VIAL IV PRN (14:20)
[2020-12-13] MEDS ORDERED: MORPHINE SULFATE 4 MG/ML SYRINGE IV PRN (14:20)
[2020-12-13] MEDS ORDERED: HYDROmorphone 0.5 MG/0.5 ML SYRINGE IVP PRN (14:20)
[2020-12-13] MEDS: SODIUM CHLORIDE 0.9% 1,000 ML IV SCH (14:37)
[2020-12-13] MEDS ORDERED: MORPHINE SULFATE 2 MG/ML SYRINGE IV PRN (15:09)
[2020-12-13] MEDS ORDERED: traMADol 50 MG TAB PO PRN (15:51)
[2020-12-13] MEDS ORDERED: ALBUTEROL NEBULIZED 2.5 MG/3 ML INHALATION PRN (15:51)
[2020-12-13] MEDS ORDERED: GABAPENTIN 300 MG CAP PO PRN (15:51)
[2020-12-13] MEDS ORDERED: Magnesium Replacement Protocol 1 EACH MISC MISCELLANE PRN (15:53)
[2020-12-13] MEDS ORDERED: Potassium Replacement Protocol 1 EACH MISC MISCELLANE PRN (15:53)
--- NOTE | 2020-12-13 15:58 | P.CONS ---
History of Present Illness - Reason for Consult Consult date: 12/13/20 Abdominal Pain Requesting physician: Marvin Guy - History of Present Illness Ms Morel is a pleasant -Baham[place] female, initially hospitalized in mid 09/09 because of an allergic reaction to generally means. During that admission she was found to have elevated liver enzymes. She had an abdominal ultrasound that showed common bile duct and intrahepatic duct dilatation with possible mass in the pancreatic head. This was performed on 09/04/20. This led to GI consult an MRCP. This confirmed mild to moderate central intrahepatic along with extrahepatic biliary dilatation. There was abrupt cutoff seen in the region of the pancreatic head. There was suggestion of a pancreatic head mass measuring 3.8 x 3.2 cm. There appeared to be generalized atrophy and ductal dilatation in the pancreas. There was no suspicious adenopathy or liver lesions seen. The patient was then seen by GI, and was recommended a referral to [facility] for endoscopic ultrasound. Prior to that she was admitted to the hospital for increasing abdominal pain, and decreased appetite, on 09/24/20. During that admission bilirubin was 2.4, AST 501, ALT 462 and alkaline phosphatase 778. The patient was then transferred to [facility] where she underwent an EUS on 10/02/20. The procedure note was not available to us at the time of her initial consultation. 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 The patient had ERCP at [facility] on 10/09/20. The procedure report notes unsuccessful biliary elevation due to large, bulging and downward facing major papilla. It is not clear the patient had stenting done from the report though the patient states that she thinks she has a stent. She was then referred here for further evaluation and recommendations. She denied any prior history of malignancy. Slow family history of pancreas cancer, ovarian or breast cancer. She has a history of smoking at least a pack a day since her teens. She is also drinking about 3-6 beers a day on a regular basis for many years. She quit in 09/09. She states that her abdominal pain is persistent but reasonably controlled with tramadol. the patient was admitted to the hospital in the week of 10/29/20 with increased abdominal pain and fever. This was controlled with adjustment of pain medications. A celiac plexus block was planned but put on hold due to the fever. This improved with antibiotics. Repeat imaging showed no recurrent biliary obstruction. Cultures remained negative PET scan from 11/01/20 showed no evidence of metastatic disease She denied any fevers/chills/nausea/vomiting. She continues to have abdominal pain off and on, controlled with pain medications. Appetite is in the same range. She has had multiple admission for abdominal pain and last admission it Unfortunately she has yet to follow up with the recommendations of surgical consult and reshma-adjuvant chemotherapy. She has rescheduled last appointments. She is always seen without family or supportive member with her, the concern is missing the window to be able to treat with surgical intent of her cancer. I have called the daughter today and left message. She states she has appointment with [facility] surgeon next week. She represents to emergency due to worsening e pigastric pain, nausea and vomiting. Cramping with eating. It does not appear she has been taking PPI and pancreatic enzymes as prescribed last admission She now presents again with abdominal pain and severe constipation 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, head tremor History of Any Multi-Drug Resistant Organisms: None Reported Past Surgical History: Orthopedic Surgery, Tubal Ligation Additional Past Surgical History / Comment(s): 2 pins right hip-dislocated 1975 Past Anesthesia/Blood Transfusion Reactions: No Reported Reaction Past Psychological History: Anxiety, Depression Smoking Status: Current every day smoker Past Alcohol Use History: Daily Past Drug Use History: None Reported - Past Family History Mother Family Medical History: Liver Disease Father Family Medical History: Cancer Additional Family Medical History / Comment(s): Lung and liver cancer. Medications and Allergies Home Medications Medication Instructions Recorded Confirmed Type amLODIPine BESYLATE/BENAZEPRIL 1 cap PO DAILY 09/25/13 12/13/20 History [amLODIPine BESYLATE/BENAZEPRIL 10-40 MG] Gabapentin [Neurontin] 300 mg PO BID PRN 12/06/16 12/13/20 History Albuterol Sulfate [Albuterol 2 puff INHALATION RT-Q4H PRN 09/04/20 12/13/20 Hi story Sulfate Hfa] Omeprazole 40 mg PO DAILY 09/24/20 12/13/20 History Acetaminophen Tab [Tylenol] 650 mg PO Q4HR PRN tab 10/31/20 12/13/20 Rx Magnesium Oxide 400 mg PO DAILY #30 tablet 10/31/20 12/13/20 Rx Potassium Chloride [Potassium 10 meq PO DAILY 30 Days #30 10/31/20 12/13/20 Rx Chloride ER] tablet.er traMADol HCL 50 mg PO Q6H PRN #120 tablet 11/12/20 12/13/20 Rx Famotidine 40 mg PO BID 11/24/20 12/13/20 History polyethylene glycoL 3350 [Miralax] 17 gm PO DAILY PRN 3 Days #3 packet 11/29/20 12/13/20 Rx Lipase/Protease/Amylase [Ck [place] 1 cap PO AC-TID 12/13/20 12/13/20 History 12,000 Units Capsule] Allergies Allergy/AdvReac Type Severity Reaction Status Date / Time amylase [From Zenpep] AdvReac stomach Verified 12/13/20 14:23 pain erythromycin base AdvReac Nausea Verified 12/13/20 14:20 [Erythromycin Base] lipase [From Zenpep] AdvReac stomach Verified 12/13/20 14:23 pain protease [From Zenpep] AdvReac stomach Verified 12/13/20 14:23 pain Physical Exam Vitals: Vital Signs Temp Pulse Resp BP Pulse Ox 12/13/20 14:38 75 16 138/79 95 12/13/20 13:47 84 16 185/92 97 12/13/20 12:12 98.1 F 91 20 121/79 100 Intake and Output 12/13/20 12/13/20 12/13/20 06:59 14:59 22:59 Other: Weight 49.895 kg - Constitutional General appearance: cooperative, mild distress, thin - EENT Eyes: anicteric sclerae, EOMI, poor dentition ENT: hearing grossly normal - Neck Neck: no lymphadenopathy - Respiratory Respiratory: bilateral: CTA - Cardiovascular Rhythm: regular Heart sounds: normal: S1, S2 Abnormal Heart Sounds: no systolic murmur, no diastolic murmur, no rub, no S3 Gallop, no S4 Gallop, no click, no other leg Peripheral Edema: bilateral: None - Gastrointestinal General gastrointestinal: no absent bowel sounds, no decreased bowel sounds, no distended, no hepatomegaly, no hyperactive bowel sounds, normal bowel sounds, no organomegaly, no rigid, no scaphoid, soft, no splenomegaly, tenderness, no umbilical hernia, no ventral hernia - Neurologic Neurologic: CNII-XII intact - Musculoskeletal Musculoskeletal: strength equal bilaterally - Psychiatric Psychiatric: A&O x's 3, appropriate affect, intact judgment & insight Results CBC & Chem 7: 12/13/20 13:05 12/13/20 13:05 Labs: Abnormal Lab Results - Last 24 Hours (Table) 12/13/20 12/13/20 Range/Units 13:05 13:05 WBC 13.2 H (3.8-10.6) k/uL Plt Count 526 H (150-450) k/uL Neutrophils # 10.7 H (1.3-7.7) k/uL Sodium 128 L (137-145) mmol/L BUN 4 L (7-17) mg/dL Creatinine 0.32 L (0.52-1.04) mg/dL Glucose 154 H (74-99) mg/dL AST 48 H (14-36) U/L Alkaline Phosphatase 416 H (38-126) U/L Albumin 3.0 L (3.5-5.0) g/dL Assessment and Plan Plan: Assessment and Plan Plan: Assessment and Plan (1) Abdominal pain Current Visit: Yes Status: Acute Priority: High Code(s): R10.9 - UNSPECIFIED ABDOMINAL PAIN SNOMED Code(s): 66643850 (2) Pancreatic cancer Current Visit: Yes Status: Acute Priority: High Code(s): C25.9 - MALIGNANT NEOPLASM OF PANCREAS, UNSPECIFIED SNOMED Code(s): 712538126 Plan: Increase Bowel Regimen, once she is moving bowels re-education on daily bowel regimen and then may restart bentyl Wrapper Operator for appropriate dose enzymes. Physician attest: I have completed the full history and physical and agree with above dictation, dictated as a scribe.
[2020-12-13] MEDS: LIPASE PO SCH (17:06)
[2020-12-13] MEDS: PROTEASE PO SCH (17:06)
[2020-12-13] MEDS: AMYLASE PO SCH (17:06)
[2020-12-13] MEDS: MAGNESIUM SULFATE-D5W PMX 1 GM in DEXTROSE/WATER 1 100ML.BAG IVPB SCH ×2 (17:07→19:04)
[2020-12-13] MEDS: POTASSIUM CHLORIDE ER 20 MEQ TAB.ER PO SCH ×2 (17:07→19:05)
[2020-12-13 17:34] LABS: Glucose,Whole Blood 106 mg/dL (75-99)
[2020-12-13] MEDS: INSULIN ASPART (NovoLOG) 100 UNIT/ML VIAL SQ SCH ×2 (17:48→22:46)
[2020-12-13] MEDS ORDERED: KETOROLAC 15 MG/ML 1 ML VIAL IVP SCH (19:45)
[2020-12-13] MEDS: HYDROmorphone 0.5 MG/0.5 ML SYRINGE IVP PRN (20:29)
[2020-12-13 20:53] LABS: Prothrombin Time 11.1 sec (9.0-12.0)
[2020-12-13 21:05] LABS: Glucose,Whole Blood 170 mg/dL (75-99)
[2020-12-13] MEDS ORDERED: ACETAMINOPHEN TAB 325 MG TAB PO PRN (21:15)
[2020-12-13] MEDS: SENNOSIDES-DOCUSATE SODIUM 1 EACH TAB PO SCH (22:46)
[2020-12-13] MEDS: LACTULOSE 20 GM/30 ML CUP PO SCH (22:46)
[2020-12-13] MEDS: FAMOTIDINE 20 MG TAB PO SCH (22:46)
[2020-12-13] MEDS: KETOROLAC 15 MG/ML 1 ML VIAL IVP PRN (22:48)
--- NOTE | 2020-12-13 23:11 | HP ---
HISTORY AND PHYSICAL DATE OF SERVICE: 12/13/2020 CHIEF COMPLAINT: Abdominal pain, intractable. HISTORY OF PRESENT ILLNESS: This 65-year-old woman with a past medical history of pancreatic cancer, diabetes mellitus, type 2, hypertension, hyperlipidemia, history of DJD, being followed by Dr. Sheron Lorenz in the outpatient setting, was complaining of severe abdominal pain felt in the epigastrium and right upper quadrant. The patient had elevated alkaline phosphatase. The patient also had ERCP in [facility]. block was being planned before. CT scan showed no mets. The patient was apparently recommended surgical consultation, neoadjuvant chemotherapy. The patient had rescheduled the last appointments. There is no history of any fever, rigors or chills. No history of headache, loss of consciousness, seizures at this time. PAST MEDICAL HISTORY: History of pancreatic cancer, diabetes mellitus, type 2, hypertension, hyperlipidemia, history of DJD. HOME MEDICATIONS: Ultram, MiraLAX, amlodipine, potassium chloride, omeprazole, magnesium, Creon, Neurontin, Pepcid, albuterol, Tylenol. ALLERGIES: AMYLASE, ERYTHROMYCIN, LIPASE, PROTEASE. FAMILY HISTORY: History of liver disease, lung and liver cancer. SOCIAL HISTORY: History of smoking, continued ongoing. Occasional alcohol intake. REVIEW OF SYSTEMS: ENT: Diminished hearing. Diminished vision. CARDIOVASCULAR SYSTEM: No angina, palpitations. RESPIRATORY SYSTEM: No cough, hemoptysis. GI: As mentioned earlier. : No dysuria. NERVOUS SYSTEM: No numbness, weakness. ALLERGY/IMMUNOLOGY: No asthma or hay fever. MUSCULOSKELETAL: As mentioned earlier. HEMATOLOGY/ONCOLOGY: As mentioned earlier. ENDOCRINE: As mentioned earlier. CONSTITUTIONAL: As mentioned earlier. DERMATOLOGY: Negative. RHEUMATOLOGY: Negative. PSYCHIATRY: As mentioned earlier. PHYSICAL EXAMINATION: Patient alert and oriented x3. Pulse 74, blood pressure 162/83, respiration 20, temperature 98.4, pulse ox 100% on room air. HEENT: Conjunctivae normal. Oral mucosa moist. NECK: No jugular venous distention. No carotid bruit. No lymph node enlargement. CARDIOVASCULAR: S1, S2 muffled. RESPIRATION: Breath sounds diminished at the bases. Scattered rhonchi and crackles. ABDOMEN: Soft. Mild diffuse discomfort in the upper abdomen. Vague mass also felt. LEGS: No edema. No swelling. NERVOUS SYSTEM: Higher functions as mentioned earlier. Moves all 4 limbs. No focal motor or sensory deficit. LYMPHATICS: No lymph node palpable in neck, axillae or groin. SKIN: No ulcer, rash, bleeding. JOINTS: No active deforming arthropathy. LAB STUDIES: WBC 13.2, sodium 128. ASSESSMENT: 1. Severe abdominal pain with failure of outpatient treatment, intractable abdominal pain secondary to pancreatic cancer. 2. Pancreatic cancer without any metastases per PET scan. 3. Increased white count. 4. Increased platelets. 5. Hyponatremia. 6. Elevated alkaline phosphatase. 7. History of diabetes mellitus, type 2. 8. Hypertension. 9. Hyperlipidemia. 10.History of degenerative joint disease. 11.History of osteoporosis. 12.History of acute bronchitis. 13.History of anxiety, depression. 14.History of continued ongoing nicotine dependence. 15.History of ETOH. 16.FULL CODE. 17.Severe protein-calorie malnutrition with body mass index of 17. RECOMMENDATIONS AND DISCUSSION: In this 65-year-old woman who presented with multiple complex medical issues, we will monitor the patient closely, continue the pain medications. Otherwise, proton pump inhibitors. Hematology/oncology consultation. The patient is rather noncompliant with recommendations per hematology/oncology notes. Will continue to monitor. Prognosis guarded. Further recommendations to follow. See orders for further details. Old charts were reviewed. A copy of this dictation is being forwarded to Dr. Sheron Lorenz, who is the primary physician. MMTHIAGO / BLADE: [id number] / MTDD
[2020-12-14] MEDS: HYDROcodone/APAP 5-325MG 1 EACH TAB PO PRN ×3 (01:37→18:31)
[2020-12-14] MEDS: HYDROmorphone 0.5 MG/0.5 ML SYRINGE IVP PRN ×5 (01:38→22:22)
[2020-12-14] MEDS: HEPARIN SODIUM,PORCINE/PF 5,000 UNIT/0.5 ML SYRINGE SQ SCH ×3 (04:11→22:23)
[2020-12-14] MEDS: PANTOPRAZOLE 40 MG/10 ML VIAL IVP SCH ×3 (04:11→22:24)
[2020-12-14] MEDS: SODIUM CHLORIDE 0.9% 1,000 ML IV SCH ×2 (04:13→16:34)
[2020-12-14 06:44] LABS: Basophils % (A) 0 %; Eosinophils % (A) 0 %; HCT 33.8 % (34.0-46.0); HGB 10.6 gm/dL (11.4-16.0); Lymphocytes % (A) 10 %; MCH 26.8 pg (25.0-35.0); MCHC 31.2 g/dL (31.0-37.0); MCV 85.8 fL (80.0-100.0); Mean Platelet Volume 7.3; Monocytes # (A) 0.4 k/uL (0-1.0); Monocytes % (A) 4 %; Neutrophils # (A) 8.5 k/uL (1.3-7.7); Neutrophils % (A) 84 %; Platelet Count 455 k/uL (150-450); RBC 3.94 m/uL (3.80-5.40); RDW 14.3 % (11.5-15.5); WBC 10.2 k/uL (3.8-10.6)
[2020-12-14 07:47] LABS: Glucose,Whole Blood 98 mg/dL (75-99)
[2020-12-14] MEDS: INSULIN ASPART (NovoLOG) 100 UNIT/ML VIAL SQ SCH ×4 (07:55→22:23)
[2020-12-14] MEDS: LIPASE PO SCH ×3 (07:56→16:34)
[2020-12-14] MEDS: PROTEASE PO SCH ×3 (07:56→16:34)
[2020-12-14] MEDS: AMYLASE PO SCH ×3 (07:56→16:34)
[2020-12-14] MEDS: SENNOSIDES-DOCUSATE SODIUM 1 EACH TAB PO SCH ×2 (08:07→22:23)
[2020-12-14] MEDS: FAMOTIDINE 20 MG TAB PO SCH ×2 (08:07→22:24)
[2020-12-14] MEDS: amLODIPine 10 MG TAB PO SCH (08:07)
[2020-12-14] MEDS: lisinopriL 20 MG TAB PO SCH (08:08)
[2020-12-14] MEDS: POTASSIUM CHLORIDE ER 10 MEQ TAB.ER.PRT PO SCH (08:08)
[2020-12-14] MEDS: MAGNESIUM OXIDE 400 MG TAB PO SCH (08:08)
[2020-12-14] MEDS: ONDANSETRON 4 MG/2 ML VIAL IVP PRN (08:12)
[2020-12-14] MEDS: LACTULOSE 20 GM/30 ML CUP PO SCH ×2 (08:16→22:24)
[2020-12-14] MEDS ORDERED: PANTOPRAZOLE 40 MG TABLET PO SCH (09:00)
[2020-12-14] MEDS ORDERED: NON FORMULARY DRUG (Amlodipine Besylate/Benazepril [Amlodipine Besylate/Benazepril 10-40 M PO SCH (09:00)
[2020-12-14 10:45] LABS: African American GFR (CKD) 126.7 (60.0-200.0); Blood Urea Nitrogen <5.0 mg/dL (9.0-27.0); Calcium 7.8 mg/dL (8.7-10.3); Carbon Dioxide 20.7 mmol/L (21.6-31.8); Chloride 108 mmol/L (96-109); Glucose 82 mg/dL (70-110); Magnesium 1.9 mg/dL (1.5-2.4); Non-African American GFR(CKD) 109.3 (60.0-200.0); Sodium 134 mmol/L (135-145)
[2020-12-14 12:26] LABS: Glucose,Whole Blood 195 mg/dL (75-99)
[2020-12-14 13:10] VITALS: BMI 16.9
[2020-12-14 17:42] LABS: Glucose,Whole Blood 85 mg/dL (75-99)
--- NOTE | 2020-12-14 18:02 | PN ---
PROGRESS NOTE DATE OF SERVICE: 12/14/2020 This 65-year-old woman was admitted with severe intractable pain secondary to acute pancreatic malignancy, is being closely monitored. Patient has mild hyponatremia. Otherwise, the patient is also being followed by Hematology/Oncology. PAST MEDICAL HISTORY: Reviewed. REVIEW OF SYSTEMS: CARDIOVASCULAR No angina or palpitations. RESPIRATORY No cough, no hemoptysis. GI As mentioned earlier. As mentioned earlier. NERVOUS No numbness or weakness. CURRENT MEDICATIONS: Reviewed include Tylenol, [place], Ventolin, Neurontin, Dilaudid, Toradol, Zestril, and Senokot S. Doses are reviewed. PHYSICAL EXAMINATION: Patient is alert, oriented x3. Pulse 77, blood pressure 140/70, respirations 17, temperature 98.2 pulse ox 100% on room air. HEENT: Conjunctivae normal. Oral mucosa moist. NECK: No jugular venous distention. No lymph node enlargement. CARDIOVASCULAR: S1, S2, muffled. No S3, no S4, RESPIRATORY: Diminished breath sounds at the bases. A few scattered rhonchi. ABDOMEN: Soft, mild diffuse distention. Vague mass felt. Otherwise, diffuse tenderness. NERVOUS SYSTEM: No focal deficits. LABS: WBC 10.2, sodium 130. Other labs are noted. ASSESSMENT: 1. Acute severe intractable abdominal pain with failure of outpatient treatment secondary to pancreatic cancer. 2. Pancreatic cancer without any metastasis per recent PET scan. 3. Increased WBC. 4. Hyponatremia. 5. Increased platelets. 6. Elevated alkaline phosphatase. 7. History of diabetes type 2. 8. Hypertension. 9. Hyperlipidemia. 10.History of degenerative joint disease. 11.History of osteoporosis. 12.History acute bronchitis. 13.Anxiety, depression. 14.History of continued ongoing nicotine dependence. 15.History of ETOH. 16.Severe protein calorie malnutrition with body mass index of 17. 17.FULL CODE. RECOMMENDATIONS AND DISCUSSION: I recommend to continue current management, continue symptomatic treatment. Repeat labs in the morning. Otherwise amylase and lipase is normal. Continue the current medications. Guarded prognosis because of multiple complex medical issues. Further recommendations to follow. MMODL / IJN: [id number] /
[2020-12-14 20:39] LABS: Glucose,Whole Blood 134 mg/dL (75-99)
[2020-12-15] MEDS: KETOROLAC 15 MG/ML 1 ML VIAL IVP PRN ×3 (03:31→22:16)
[2020-12-15] MEDS: ONDANSETRON 4 MG/2 ML VIAL IVP PRN (03:31)
[2020-12-15 07:09] LABS: Basophils # (A) 0.1 k/uL (0-0.2); Basophils % (A) 1 %; Eosinophils # (A) 0.2 k/uL (0-0.7); Eosinophils % (A) 2 %; HCT 35.2 % (34.0-46.0); HGB 10.8 gm/dL (11.4-16.0); Hypochromasia Slight; Lymphocytes # (A) 1.1 k/uL (1.0-4.8); Lymphocytes % (A) 12 %; MCH 26.9 pg (25.0-35.0); MCHC 30.6 g/dL (31.0-37.0); MCV 87.7 fL (80.0-100.0); Mean Platelet Volume 7.2; Monocytes # (A) 0.5 k/uL (0-1.0); Monocytes % (A) 6 %; Neutrophils # (A) 7.5 k/uL (1.3-7.7); Neutrophils % (A) 78 %; Platelet Count 454 k/uL (150-450); RBC 4.01 m/uL (3.80-5.40); RDW 14.1 % (11.5-15.5); WBC 9.7 k/uL (3.8-10.6)
[2020-12-15] MEDS: INSULIN ASPART (NovoLOG) 100 UNIT/ML VIAL SQ SCH ×4 (07:31→22:16)
[2020-12-15] MEDS: MAGNESIUM OXIDE 400 MG TAB PO SCH (07:31)
[2020-12-15] MEDS: FAMOTIDINE 20 MG TAB PO SCH ×2 (07:31→22:15)
[2020-12-15 07:32] LABS: Glucose,Whole Blood 101 mg/dL (75-99)
[2020-12-15] MEDS: PROTEASE PO SCH ×3 (07:32→17:39)
[2020-12-15] MEDS: LACTULOSE 20 GM/30 ML CUP PO SCH ×2 (07:32→22:36)
[2020-12-15] MEDS: AMYLASE PO SCH ×3 (07:32→17:39)
[2020-12-15] MEDS: HEPARIN SODIUM,PORCINE/PF 5,000 UNIT/0.5 ML SYRINGE SQ SCH ×2 (07:32→22:08)
[2020-12-15] MEDS: LIPASE PO SCH ×3 (07:32→17:39)
[2020-12-15] MEDS: lisinopriL 20 MG TAB PO SCH (07:32)
[2020-12-15] MEDS: PANTOPRAZOLE 40 MG/10 ML VIAL IVP SCH ×2 (07:33→22:15)
[2020-12-15] MEDS: SENNOSIDES-DOCUSATE SODIUM 1 EACH TAB PO SCH ×2 (07:33→22:19)
[2020-12-15] MEDS: amLODIPine 10 MG TAB PO SCH (07:33)
[2020-12-15] MEDS: POTASSIUM CHLORIDE ER 10 MEQ TAB.ER.PRT PO SCH (07:33)
[2020-12-15] MEDS: HYDROcodone/APAP 5-325MG 1 EACH TAB PO PRN (07:34)
[2020-12-15] MEDS: SODIUM CHLORIDE 0.9% 1,000 ML IV SCH (07:41)
[2020-12-15 11:44] LABS: Glucose,Whole Blood 228 mg/dL (75-99)
[2020-12-15 11:44] LABS: Glucose,Whole Blood 320 mg/dL (75-99)
--- NOTE | 2020-12-15 12:21 | P.PN ---
Subjective Progress Note Date: 12/15/20 The patient reports that her abdominal pain complaints are improved. She still has some cramping and gas in the upper abdomen. She had one episode of vomiting today, but states that it is related to her medicine. According to her she is tolerating her diet okay. She has had some 2 or 3 episodes of loose stools. No fever, chills or obvious bleeding. Objective - Vital Signs Vital signs: Vital Signs Temp 98.4 F 12/15/20 04:40 Pulse 68 12/15/20 04:40 Resp 20 12/15/20 04:40 BP 149/77 12/15/20 04:40 Pulse Ox 100 12/15/20 04:40 Intake & Output 12/14/20 12/15/20 12/15/20 18:59 06:59 18:59 Intake Total 100 Balance 100 Weight 49.895 kg Intake: Oral 100 Other: Voiding Method Toilet Toilet Toilet # Voids 1 - Constitutional General appearance: Present: no acute distress - EENT Eyes: Present: EOMI ENT: Present: hearing grossly normal, normal oropharynx - Respiratory Respiratory: bilateral: CTA - Cardiovascular Rhythm: regular Heart sounds: normal: S1, S2 - Gastrointestinal General gastrointestinal: Present: hyperactive bowel sounds, soft - Integumentary Integumentary: Present: normal - Neurologic Neurologic: Present: CNII-XII intact - Musculoskeletal Musculoskeletal: Present: generalized weakness - Psychiatric Psychiatric: Present: A&O x's 3 - Labs CBC & Chem 7: 12/15/20 06:32 12/14/20 05:48 Labs: Abnormal Lab Results - Last 24 Hours (Table) 12/14/20 12/14/20 12/15/20 Range/Units 12:08 20:30 06:32 Hgb 10.8 L (11.4-16.0) gm/dL MCHC 30.6 L (31.0-37.0) g/dL Plt Count 454 H (150-450) k/uL POC Glucose (mg/dL) 195 H 134 H (75-99) mg/dL 12/15/20 12/15/20 12/15/20 Range/Units 07:30 11:32 11:33 Hgb (11.4-16.0) gm/dL MCHC (31.0-37.0) g/dL Plt Count (150-450) k/uL POC Glucose (mg/dL) 101 H 320 H 228 H (75-99) mg/dL Assessment and Plan (1) Intractable abdominal pain Narrative/Plan: This has been a chronic issue, with intermittent exacerbations. This is likely multifactorial. The patient likely has some pain related to her tumor. However she also has chronic pancreatitis, and her exacerbations are more likely to be related to that. It is also not clear if she is compliant with an appropriate diet. The patient was prescribed Creon as an outpatient but had not started that yet. - Symptoms have improved with low-dose IV morphine. She is also been started on pancreatic enzyme supplements. No acute abnormality found on imaging. - Therefore from our standpoint the patient can be discharged whenever felt to be appropriate by the admitting service. She can go back on tramadol which she was taking at home. - She was also ordered to be compliant with the pancreatic enzyme supplement. Current Visit: Yes Status: Acute Code(s): R10.9 - UNSPECIFIED ABDOMINAL PAIN SNOMED Code(s): 46695889 (2) Pancreatic cancer Narrative/Plan: The patient is scheduled for chemotherapy teaching later this week, and will start chemotherapy subsequently with gemcitabine and Abraxane. As noted previously, she has been evaluated by surgery and is not felt to be an upfront surgical candidate. She will be reevaluated after neoadjuvant chemotherapy Current Visit: Yes Status: Acute Priority: High Code(s): C25.9 - MALIGNANT NEOPLASM OF PANCREAS, UNSPECIFIED SNOMED Code(s): 664951227
[2020-12-15 12:53] LABS: African American GFR (CKD) 126.7 (60.0-200.0); Blood Urea Nitrogen <5.0 mg/dL (9.0-27.0); Calcium 8.1 mg/dL (8.7-10.3); Carbon Dioxide 23.6 mmol/L (21.6-31.8); Chloride 105 mmol/L (96-109); Glucose 93 mg/dL (70-110); Non-African American GFR(CKD) 109.3 (60.0-200.0); Potassium 3.9 mmol/L (3.5-5.5); Sodium 131 mmol/L (135-145)
[2020-12-15 17:30] LABS: Glucose,Whole Blood 133 mg/dL (75-99)
--- NOTE | 2020-12-15 18:54 | PN ---
PROGRESS NOTE DATE OF SERVICE: 12/15/2020 This 65-year-old woman admitted with severe pain as well as failure of outpatient treatment, also had history of pancreatic cancer. Apparently the patient did not follow through with follow ups at this time. No chest pain. No palpitations. No fever. The patient is comfortable. EXAM: On exam alert and oriented x3. Pulse 68, blood pressure 140/80, respiration 17, temperature 98.2, pulse ox 98% on room air. HEENT: Conjunctivae normal. Oral mucosa moist. NECK: No jugular venous distention. No lymph node enlargement. CARDIOVASCULAR: S1, S2, muffled. No S3, no S4, RESPIRATORY: Diminished breath sounds at the bases. A few scattered rhonchi. ABDOMEN: Soft. Mild diffuse tenderness in the upper abdomen. NERVOUS SYSTEM: No focal deficits. LABORATORY DATA: WBC 9.2, sodium 137. Other labs are noted. ASSESSMENT: 1. Acute severe intractable abdominal pain with failure of outpatient treatment secondary to pancreatic cancer. 2. Pancreatic cancer without any metastasis per recent PET scan. 3. Increased WBC. 4. Hyponatremia. 5. Increased platelets. 6. Elevated alkaline phosphatase. 7. History of diabetes type 2. 8. Hypertension. 9. Hyperlipidemia. 10.History of DJD. 11.History of osteoporosis. 12.History of acute bronchitis. 13.History of depression. 14.History of continued ongoing nicotine dependence. 15.History of ETOH. 16.Severe protein calorie malnutrition with body mass index of 17. 17.FULL CODE. RECOMMENDATIONS: Recommend to continue current management and symptomatic treatment. Otherwise, continue the pain management. Closely follow with Hematology/Oncology. Guarded prognosis because of multiple complex medical issues. Further recommendations to follow. MMODL / IJN: [id number] /
[2020-12-15 20:14] LABS: Glucose,Whole Blood 140 mg/dL (75-99)
[2020-12-15] MEDS: HYDROmorphone 0.5 MG/0.5 ML SYRINGE IVP PRN (22:17)
[2020-12-16] MEDS: SODIUM CHLORIDE 0.9% 1,000 ML IV SCH ×2 (00:49→12:09)
[2020-12-16 04:21] VITALS: RESP 16
[2020-12-16] MEDS: KETOROLAC 15 MG/ML 1 ML VIAL IVP PRN (05:05)
[2020-12-16 07:15] LABS: Glucose,Whole Blood 131 mg/dL (75-99)
[2020-12-16] MEDS: PROTEASE PO SCH ×2 (07:44→12:07)
[2020-12-16] MEDS: LIPASE PO SCH ×2 (07:44→12:07)
[2020-12-16] MEDS: AMYLASE PO SCH ×2 (07:44→12:07)
[2020-12-16] MEDS: SENNOSIDES-DOCUSATE SODIUM 1 EACH TAB PO SCH (08:00)
[2020-12-16] MEDS: POTASSIUM CHLORIDE ER 10 MEQ TAB.ER.PRT PO SCH (08:00)
[2020-12-16] MEDS: amLODIPine 10 MG TAB PO SCH (08:01)
[2020-12-16] MEDS: lisinopriL 20 MG TAB PO SCH (08:01)
[2020-12-16] MEDS: PANTOPRAZOLE 40 MG/10 ML VIAL IVP SCH (08:01)
[2020-12-16] MEDS: FAMOTIDINE 20 MG TAB PO SCH (08:01)
[2020-12-16] MEDS: MAGNESIUM OXIDE 400 MG TAB PO SCH (08:01)
[2020-12-16] MEDS: INSULIN ASPART (NovoLOG) 100 UNIT/ML VIAL SQ SCH ×2 (08:02→12:41)
[2020-12-16] MEDS: LACTULOSE 20 GM/30 ML CUP PO SCH (08:02)
[2020-12-16] MEDS: HEPARIN SODIUM,PORCINE/PF 5,000 UNIT/0.5 ML SYRINGE SQ SCH (08:02)
[2020-12-16 10:34] LABS: ALT 21 U/L (4-34); AST 28 U/L (14-36); African American GFR (CKD) >90 (>60 ml/min/1.73 sqM); Albumin 2.4 g/dL (3.5-5.0); Albumin/Globulin Ratio 0.8; Alkaline Phosphatase 350 U/L (38-126); Anion Gap 9 mmol/L; Blood Urea Nitrogen 5 mg/dL (7-17); Calcium 8.3 mg/dL (8.4-10.2); Carbon Dioxide 20 mmol/L (22-30); Chloride 102 mmol/L (98-107); Globulin 3.1 g/dL; Glucose 149 mg/dL (74-99); Magnesium 1.6 mg/dL (1.6-2.3); Non-African American GFR(CKD) >90 (>60 ml/min/1.73 sqM); Potassium 3.1 mmol/L (3.5-5.1); Sodium 131 mmol/L (137-145); Total Bilirubin 0.7 mg/dL (0.2-1.3); Total Protein 5.5 g/dL (6.3-8.2)
[2020-12-16 11:05] LABS: Glucose,Whole Blood 260 mg/dL (75-99)
[2020-12-16 11:33] VITALS: BP 126/79; PULSE 72; TEMP 97.9
[2020-12-16] MEDS ORDERED: POTASSIUM CHLORIDE ER 20 MEQ TAB.ER PO STA (11:59)
--- NOTE | 2020-12-16 15:42 | P.PN ---
Subjective Progress Note Date: 12/16/20 Principal diagnosis: Intractable abd pain, pancreatic adenocarcinoma, to start neoadjuvant chemo In f/u today pt feels pretty good, abd pain is controlled. Denies fever, nausea, constipation or diarrhea at this time. Objective - Vital Signs Vital signs: Vital Signs Temp 99.8 F H 12/16/20 04:20 Pulse 77 12/16/20 04:20 Resp 16 12/16/20 04:20 BP 155/85 12/16/20 04:20 Pulse Ox 100 12/16/20 04:20 Intake & Output 12/15/20 12/16/20 12/16/20 18:59 06:59 18:59 Intake Total 740 1575 Balance 740 1575 Intake: Intake, IV Titration 825 Amount Sodium Chloride 0.9% 1, 825 000 ml @ 75 mls/hr IV . [id number] [facility] Rx#:[id number] Oral 740 750 Other: Voiding Method Toilet Toilet # Voids 2 3 - Constitutional General appearance: Present: cooperative, no acute distress, thin - EENT Eyes: Present: anicteric sclerae, EOMI ENT: Present: hearing grossly normal - Respiratory Details: resp even and unlabored - Neurologic Neurologic: Present: CNII-XII intact - Musculoskeletal Musculoskeletal: Present: strength equal bilaterally - Psychiatric Psychiatric: Present: A&O x's 3, appropriate affect, intact judgment & insight - Labs CBC & Chem 7: 12/15/20 06:32 12/16/20 10:05 Labs: Abnormal Lab Results - Last 24 Hours (Table) 12/15/20 12/15/20 12/15/20 Range/Units 06:32 11:32 11:33 Sodium 131 L (135-145) mmol/L Anion Gap 2.40 L (4.00-12.00) mmol/L BUN <5.0 L (9.0-27.0) mg/dL Creatinine 0.4 L (0.6-1.5) mg/dL POC Glucose (mg/dL) 320 H 228 H (75-99) mg/dL Calcium 8.1 L (8.7-10.3) mg/dL 12/15/20 12/15/20 12/16/20 Range/Units 17:28 20:12 07:14 Sodium (135-145) mmol/L Anion Gap (4.00-12.00) mmol/L BUN (9.0-27.0) mg/dL Creatinine (0.6-1.5) mg/dL POC Glucose (mg/dL) 133 H 140 H 131 H (75-99) mg/dL Calcium (8.7-10.3) mg/dL Assessment and Plan (1) Intractable abdominal pain Narrative/Plan: Cont current analgesic regimen. Educate on prevention of narcotic induced constipation Status: Resolved Code(s): R10.9 - UNSPECIFIED ABDOMINAL PAIN SNOMED Code(s): 15558092 (2) Pancreatic cancer Narrative/Plan: Chemo edu and start of neoadjuvant chemo this week. Status: Acute Priority: High Code(s): C25.9 - MALIGNANT NEOPLASM OF PANCREAS, UNSPECIFIED SNOMED Code(s): 041862232
[2020-12-16] MEDS ORDERED: MAGNESIUM OXIDE 400 MG TAB PO SCH (21:00)
--- NOTE | 2020-12-17 09:19 | P.DS ---
Providers Date of admission: 12/13/20 14:05 Expected date of discharge: 12/16/20 Attending physician: Yvrose Brito Consults: 12/13/20 14:21 Consult Physician Routine Consulting Provider: Anand Muller Consult Reason/Comments: Intractable abdominal pain, pancreatic cancer Do you want consulting provider notified?: Yes [facility] Course: Final diagnosis Acute severe intractable abdominal pain with failure of outpatient treatment secondary to pancreas cancer Pancreas cancer without a metastasis a recent PET scan Increased white blood count Hyponatremia increased platelets Elevated alkaline phosphatase history of diabetes mellitus type 2 Hypertension Hyperlipidemia History of degenerative joint disease history of continued ongoing nicotine dependence severe protein calorie malnutrition with a body mass index of 17 Full code Discharge disposition Patient is being discharged in a stable condition with guarded prognosis to home. Patient will follow-up with Dr. Lorenz in the outpatient setting upon discharge. Patient is to also follow-up with oncology Dr. Muller in 2 days. Total time taken is greater than 35 minutes. Hospital course This is a 65-year-old female who was recently admitted with severe abdominal pain and failure of outpatient treatment and being closely monitored. Oncology following and plans are for initiating chemotherapy and educating this week. Patient is known to have history of pancreatic cancer and was seen and evaluated at [facility] and not a surgical candidate. Patient is adamant about going home today. Denies any abdominal discomfort and is tolerating food and encouraged the patient to continue with fluid restrictions of 1200 mL per day and close follow-up with oncology at her scheduled appointment tomorrow. Currently no reports of chest pain, shortness of breath, or palpitations. Patient is afebrile. No reports of nausea or vomiting and patient is tolerating diet. Patient will be discharging home today. Gen: This is a 65-year-old female awake, alert and oriented 3, well-developed, thin built HEENT: Head is atraumatic, normocephalic. Pupils equal, round. Sclerae is anicteric. NECK: Supple. No JVD. No lymphadenopathy. No thyromegaly. LUNGS: Diminished breath sounds bilaterally with no wheezing or rhonchi noted. No intercostal retractions. HEART: Regular rate and rhythm. No murmur. ABDOMEN: Soft. Bowel sounds are present. No masses. No tenderness. EXTREMITIES: No pedal edema. No calf tenderness. NEUROLOGICAL: Patient is awake, alert and oriented x3. Cranial nerves 2 through 12 are grossly intact. Please refer to medication reconciliation sheet for a list of medications. Patient Condition at Discharge: Stable Plan - Discharge Summary Discharge Rx Participant: Yes New Discharge Prescriptions: New HYDROcodone/APAP 5-325MG [[place] 5-325] 1 each PO Q6HR PRN #12 tab PRN Reason: Pain Continue amLODIPine BESYLATE/BENAZEPRIL [amLODIPine BESYLATE/BENAZEPRIL 10-40 MG] 1 cap PO DAILY Albuterol Sulfate [Albuterol Sulfate Hfa] 2 puff INHALATION RT-Q4H PRN PRN Reason: Shortness Of Breath Omeprazole 40 mg PO DAILY Acetaminophen Tab [Tylenol] 650 mg PO Q4HR PRN tab PRN Reason: Fever And/ Or Pain traMADol HCL 50 mg PO Q6H PRN #120 tablet PRN Reason: Pain polyethylene glycoL 3350 [Miralax] 17 gm PO DAILY PRN 3 Days #3 packet PRN Reason: Constipation Lipase/Protease/Amylase [Ck [place] 12,000 Units Capsule] 1 cap PO AC-TID Famotidine 40 mg PO BID Changed Magnesium Oxide 400 mg PO BID 30 Days #60 tablet Potassium Chloride [Potassium Chloride ER] 20 meq PO DAILY 30 Days #60 tab Discontinued Gabapentin [Neurontin] 300 mg PO BID PRN PRN Reason: Pain Discharge Medication List amLODIPine BESYLATE/BENAZEPRIL [amLODIPine BESYLATE/BENAZEPRIL 10-40 MG] 1 cap PO DAILY 09/25/13 [History] Albuterol Sulfate [Albuterol Sulfate Hfa] 2 puff INHALATION RT-Q4H PRN 09/04/20 [History] Omeprazole 40 mg PO DAILY 09/24/20 [History] Acetaminophen Tab [Tylenol] 650 mg PO Q4HR PRN tab 10/31/20 [Rx] traMADol HCL 50 mg PO Q6H PRN #120 tablet 11/12/20 [Rx] Famotidine 40 mg PO BID 11/24/20 [History] polyethylene glycoL 3350 [Miralax] 17 gm PO DAILY PRN 3 Days #3 packet 11/29/20 [Rx] Lipase/Protease/Amylase [Ck Dr 12,000 Units Capsule] 1 cap PO AC-TID 12/13/20 [History] HYDROcodone/APAP 5-325MG [[place] 5-325] 1 each PO Q6HR PRN #12 tab 12/16/20 [Rx] Magnesium Oxide 400 mg PO BID 30 Days #60 tablet 12/16/20 [Rx] Potassium Chloride [Potassium Chloride ER] 20 meq PO DAILY 30 Days #60 tab 12/16/20 [Rx] Follow up Appointment(s)/Referral(s): Anand Muller MD [STAFF PHYSICIAN] - 12/18/20 11:00 am ('s office will check with the patient about this appt;) Sheron Lorenz MD [Primary Care Provider] - 01/02/21 3:00 pm Ambulatory/Diagnostic Orders: Comprehensive Metabolic Panel [LAB.AMB] Time Frame: 2 Days, Location: None Selected Patient Instructions/Handouts: Pancreatic Cancer (DC) Activity/Diet/Wound Care/Special Instructions: Activity Limited until follow-up Follow-up with primary care provider on discharge Follow-up with oncology this week as scheduled Recommend repeat labs in 2-3 days to monitor electrolytes Continue with consistent carb diet Continue Glucerna twice daily with meals Discharge Disposition: HOME SELF-CARE
== END 2020-12-16 14:50 | disposition home or self-care (01) | DRG 947 ==
LOC: EC 11:48 → 5NMEDONC 14:05
PROVIDERS: ADMIT Hospitalist; ATTEND Hospitalist
DX: G89.3 Neoplasm related pain (acute) (chronic) (principal); E43 Unspecified severe protein-calorie malnutrition; C25.0 Malignant neoplasm of head of pancreas; E87.1 Hypo-osmolality and hyponatremia; K86.1 Other chronic pancreatitis; Z68.1 Body mass index [BMI] 19.9 or less, adult; K86.81 Exocrine pancreatic insufficiency; E08.9 Diabetes mellitus due to underlying condition without complications; D47.3 Essential (hemorrhagic) thrombocythemia; D72.829 Elevated white blood cell count, unspecified; Z20.822 Contact with and (suspected) exposure to COVID-19; E78.5 Hyperlipidemia, unspecified; I10 Essential (primary) hypertension; M54.40 Lumbago with sciatica, unspecified side; M81.0 Age-related osteoporosis without current pathological fracture; K59.00 Constipation, unspecified; R74.01 Elevation of levels of liver transaminase levels; R25.1 Tremor, unspecified; H91.90 Unspecified hearing loss, unspecified ear; H54.7 Unspecified visual loss; Z91.19 Patient's noncompliance with other medical treatment and regimen; M19.90 Unspecified osteoarthritis, unspecified site; F17.210 Nicotine dependence, cigarettes, uncomplicated; Z71.6 Tobacco abuse counseling; Z79.899 Other long term (current) drug therapy; Z98.51 Tubal ligation status; Z87.39 Personal history of other diseases of the musculoskeletal system and connective tissue; Z86.59 Personal history of other mental and behavioral disorders; Z86.69 Personal history of other diseases of the nervous system and sense organs; Z98.890 Other specified postprocedural states; Z71.3 Dietary counseling and surveillance; Z88.1 Allergy status to other antibiotic agents; Z88.8 Allergy status to other drugs, medicaments and biological substances; Z80.0 Family history of malignant neoplasm of digestive organs; Z80.1 Family history of malignant neoplasm of trachea, bronchus and lung; Z83.79 Family history of other diseases of the digestive system; Z80.3 Family history of malignant neoplasm of breast
CPT/HCPCS: 36415; 80048; 80053; 82150; 83690; 83735; 85025; 85610; 87635; 96361; 96374; 96375; 99284

== ENCOUNTER 2020-12-21 09:47 | Emergency (ER) | payer MEDICARE, OTHER ==
[2020-12-21] MEDS ORDERED: SODIUM CHLORIDE 0.9% 1,000 ML IV STA (10:14)
[2020-12-21] MEDS ORDERED: ONDANSETRON 4 MG/2 ML VIAL IVP STA (10:14)
[2020-12-21] MEDS ORDERED: HYDROmorphone 1 MG/ML 1 ML SYRINGE IVP STA (10:14)
[2020-12-21 10:52] LABS: Basophils # (A) 0.1 k/uL (0-0.2); Basophils % (A) 1 %; Eosinophils # (A) 0.2 k/uL (0-0.7); Eosinophils % (A) 1 %; HCT 37.6 % (34.0-46.0); HGB 11.8 gm/dL (11.4-16.0); Lymphocytes # (A) 1.9 k/uL (1.0-4.8); Lymphocytes % (A) 16 %; MCH 26.4 pg (25.0-35.0); MCHC 31.4 g/dL (31.0-37.0); MCV 83.8 fL (80.0-100.0); Mean Platelet Volume 7.6; Monocytes # (A) 0.5 k/uL (0-1.0); Monocytes % (A) 4 %; Neutrophils # (A) 9.4 k/uL (1.3-7.7); Neutrophils % (A) 77 %; Platelet Count 724 k/uL (150-450); RBC 4.48 m/uL (3.80-5.40); RDW 14.4 % (11.5-15.5); WBC 12.3 k/uL (3.8-10.6)
[2020-12-21 11:12] LABS: ALT 15 U/L (4-34); AST 26 U/L (14-36); African American GFR (CKD) >90 (>60 ml/min/1.73 sqM); Albumin 2.8 g/dL (3.5-5.0); Alkaline Phosphatase 363 U/L (38-126); Amylase 49 U/L (30-110); Anion Gap 9 mmol/L; Blood Urea Nitrogen 7 mg/dL (7-17); Calcium 8.9 mg/dL (8.4-10.2); Carbon Dioxide 21 mmol/L (22-30); Chloride 101 mmol/L (98-107); Glucose 139 mg/dL (74-99); Lipase 31 U/L (23-300); Non-African American GFR(CKD) >90 (>60 ml/min/1.73 sqM); Sodium 131 mmol/L (137-145); Total Bilirubin 0.7 mg/dL (0.2-1.3); Total Protein 6.2 g/dL (6.3-8.2)
--- NOTE | 2020-12-21 11:14 | XR ---
EXAMINATION TYPE: XR KUB DATE OF EXAM: 12/21/2020 10:56 AM CLINICAL HISTORY: Pain and constipation for 5 days TECHNIQUE: Single upright KUB image of the abdomen is obtained. COMPARISON: CT abdomen and pelvis November 27, 2020. FINDINGS: Prominent number of gas-filled small and large bowel loops. Colonic interposition on curren t study. Some scattered air-fluid levels in the lower abdomen and pelvis, nonspecific finding. No def initive free air. Lung bases are clear. Surgical change to proximal right femur is partially imaged. Known pneumobilia less well seen. New central metallic stent graft. IMPRESSION: Overall nonspecific but favored nonobstructive bowel gas pattern.
--- NOTE | 2020-12-21 11:35 | ED ---
Abdominal Pain HPI - General Chief Complaint: Abdominal Pain Stated Complaint: abd pain Time Seen by Provider: 12/21/20 10:05 Source: patient, RN notes reviewed Mode of arrival: wheelchair Limitations: no limitations - History of Present Illness Initial Comments: Patient is a 65-year-old female that presents to emergency department complaining of abdominal pain/gas pain. She notes that she woke up this morning and was having some gas pain decided to try to go get a Fleet from the store but decided come to the emergency room. She is well-known in the emergency room. She does have a history of pancreatic cancer and does follow oncologist. She no kyree she has a follow-up on Wednesday. She notes that she needed symptomatic control the pain at this time. She was otherwise well-appearing. She denied any aggravating or alleviating factors at this time. She notes that her appetite has been better recently and she's tried to eat more. She notes that she has small bowel movement this morning. She denied any chest pain shortness of breath headache nausea vomiting diarrhea fever fatigue chills. - Related Data Home Medications Medication Instructions Recorded Confirmed amLODIPine BESYLATE/BENAZEPRIL 1 cap PO DAILY 09/25/13 12/21/20 [amLODIPine BESYLATE/BENAZEPRIL 10-40 MG] Albuterol Sulfate [Albuterol 2 puff INHALATION RT-Q4H PRN 09/04/20 12/21/20 Sulfate Hfa] Omeprazole 40 mg PO DAILY 09/24/20 12/21/20 Famotidine 40 mg PO BID 11/24/20 12/21/20 Lipase/Protease/Amylase [Ck [place] 1 cap PO AC-TID 12/13/20 12/21/20 12,000 Units Capsule] HYDROcodone/APAP 5-325MG [[place] 1 tab PO TID PRN 12/21/20 12/21/20 5-325] Ondansetron Odt [Zofran Odt] 4 mg PO Q12HR PRN 12/21/20 12/21/20 Previous Rx's Medication Instructions Recorded Acetaminophen Tab [Tylenol] 650 mg PO Q4HR PRN tab 10/31/20 traMADol HCL 50 mg PO Q6H PRN #120 tablet 11/12/20 polyethylene glycoL 3350 [Miralax] 17 gm PO DAILY PRN 3 Days #3 packet 11/29/20 Magnesium Oxide 400 mg PO BID 30 Days #60 tablet 12/16/20 Potassium Chloride [Potassium 20 meq PO DAILY 30 Days #60 tab 12/16/20 Chloride ER] Allergies Allergy/AdvReac Type Severity Reaction Status Date / Time amylase [From Zenpep] AdvReac stomach Verified 12/21/20 11:18 pain erythromycin base AdvReac Nausea Verified 12/21/20 11:18 [Erythromycin Base] gabapentin AdvReac Hallucinati Verified 12/21/20 11:18 ons lipase [From Zenpep] AdvReac stomach Verified 12/21/20 11:18 pain protease [From Zenpep] AdvReac stomach Verified 12/21/20 11:18 pain Review of Systems ROS Statement: Those systems with pertinent positive or pertinent negative responses have been documented in the HPI. ROS Other: All systems not noted in ROS Statement are negative. 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, head tremor History of Any Multi-Drug Resistant Organisms: None Reported Past Surgical History: Orthopedic Surgery, Tubal Ligation Additional Past Surgical History / Comment(s): 2 pins right hip-dislocated 1975 Past Anesthesia/Blood Transfusion Reactions: No Reported Reaction Past Psychological History: Anxiety, Depression Smoking Status: Current every day smoker Past Alcohol Use History: Daily Past Drug Use History: None Reported - Past Family History Mother Family Medical History: Liver Disease Father Family Medical History: Cancer Additional Family Medical History / Comment(s): Lung and liver cancer. General Exam Limitations: no limitations General appearance: alert, in no apparent distress, cachectic Head exam: Present: atraumatic, normocephalic, normal inspection Eye exam: Present: normal appearance, PERRL, EOMI. Absent: scleral icterus, conjunctival injection, periorbital swelling ENT exam: Present: normal exam, mucous membranes moist Neck exam: Present: normal inspection Respiratory exam: Present: normal lung sounds bilaterally. Absent: respiratory distress, wheezes, rales, rhonchi, stridor Cardiovascular Exam: Present: regular rate, normal rhythm, normal heart sounds. Absent: systolic murmur, diastolic murmur, rubs, gallop, clicks GI/Abdominal exam: Present: soft, normal bowel sounds. Absent: distended, tenderness, guarding, rebound, rigid Extremities exam: Present: normal inspection, full ROM, normal capillary refill. Absent: tenderness, pedal edema, joint swelling, calf tenderness Neurological exam: Present: alert, oriented X3 Psychiatric exam: Present: normal affect, normal mood Skin exam: Present: warm, dry, intact, normal color. Absent: rash Course Vital Signs 12/21/20 09:57 Temperature 98.1 F Pulse Rate 84 Respiratory 22 Rate Blood Pressure 133/89 O2 Sat by Pulse 100 Oximetry Medical Decision Making - Medical Decision Making 65-year-old female complaining about pain, history of pancreatic cancer. Labs, KUB, 1 mg of Dilaudid, 4 mg Zofran, 1 L normal saline ordered. Labs: White blood cells 12.3, sodium 131 alkaline phosphatase 363. All similar to baseline. X-ray shows overall nonobstructive bowel gas pattern.. Upon reevaluation patient is resting comfortably in bed stating that she feels m uch better at this time. Case discussed with Dr. Oquendo, patient discharge home with follow-up to o ncology as planned. - Lab Data Result diagrams: 12/21/20 10:28 12/21/20 10:28 Lab Results 12/21/20 12/21/20 Range/Units 10:28 10:28 WBC 12.3 H (3.8-10.6) k/uL RBC 4.48 (3.80-5.40) m/uL Hgb 11.8 (11.4-16.0) gm/dL Hct 37.6 (34.0-46.0) % MCV 83.8 (80.0-100.0) fL MCH 26.4 (25.0-35.0) pg MCHC 31.4 (31.0-37.0) g/dL RDW 14.4 (11.5-15.5) % Plt Count 724 H (150-450) k/uL MPV 7.6 Neutrophils % 77 % Lymphocytes % 16 % Monocytes % 4 % Eosinophils % 1 % Basophils % 1 % Neutrophils # 9.4 H (1.3-7.7) k/uL Lymphocytes # 1.9 (1.0-4.8) k/uL Monocytes # 0.5 (0-1.0) k/uL Eosinophils # 0.2 (0-0.7) k/uL Basophils # 0.1 (0-0.2) k/uL Sodium 131 L (137-145) mmol/L Potassium 4.0 (3.5-5.1) mmol/L Chloride 101 (98-107) mmol/L Carbon Dioxide 21 L (22-30) mmol/L Anion Gap 9 mmol/L BUN 7 (7-17) mg/dL Creatinine 0.41 L (0.52-1.04) mg/dL Est GFR (CKD-EPI)AfAm >90 (>60 ml/min/1.73 sqM) Est GFR (CKD-EPI)NonAf >90 (>60 ml/min/1.73 sqM) Glucose 139 H (74-99) mg/dL Calcium 8.9 (8.4-10.2) mg/dL Total Bilirubin 0.7 (0.2-1.3) mg/dL AST 26 (14-36) U/L ALT 15 (4-34) U/L Alkaline Phosphatase 363 H (38-126) U/L Total Protein 6.2 L (6.3-8.2) g/dL Albumin 2.8 L (3.5-5.0) g/dL Amylase 49 (30-110) U/L Lipase 31 (23-300) U/L - Radiology Data Radiology results: report reviewed, image reviewed KUB: Overall nonspecific but favor nonobstructive bowel gas pattern. Disposition Clinical Impression: Abdominal pain Disposition: HOME SELF-CARE Condition: Stable Instructions (If sedation given, give patient instructions): Abdominal Pain (ED) Additional Instructions: Please return to the Emergency Department if symptoms worsen or any other concerns. Follow-up with primary care in 1-2 days. Follow-up with oncology on Wednesday as planned. Increase dietary fiber and fluids. Is patient prescribed a controlled substance at d/c from ED?: No Referrals: Sheron Lorenz MD [Primary Care Provider] - 1-2 days Time of Disposition: 12:41
[2020-12-21 15:29] VITALS: BP 171/89; PULSE 68; RESP 16; TEMP 98.3
== END 2020-12-21 15:28 | disposition home or self-care (01) ==
LOC: EC 09:47
DX: R10.9 Unspecified abdominal pain (principal); R14.1 Gas pain; E11.9 Type 2 diabetes mellitus without complications; F17.200 Nicotine dependence, unspecified, uncomplicated; I10 Essential (primary) hypertension; Z79.899 Other long term (current) drug therapy; Z88.1 Allergy status to other antibiotic agents; Z88.8 Allergy status to other drugs, medicaments and biological substances
CPT/HCPCS: 80053; 82150; 83690; 85025; 74018; 99284; 96374; 96375; 96361; J2405; J1170

== ENCOUNTER 2021-01-03 12:27 | Inpatient (IN) | payer MEDICARE, OTHER ==
[2021-01-03] MEDS ORDERED: SODIUM CHLORIDE 0.9% 1,000 ML IV STA (12:49)
[2021-01-03] MEDS ORDERED: HYDROmorphone 1 MG/ML 1 ML SYRINGE IVP STA (12:50)
[2021-01-03] MEDS ORDERED: ONDANSETRON 4 MG/2 ML VIAL IVP STA (12:51)
--- NOTE | 2021-01-03 13:01 | ED ---
GI Bleed HPI - General Chief complaint: GI Bleed Stated complaint: rectal bleed Time Seen by Provider: 01/03/21 12:38 Source: patient, EMS, RN notes reviewed, old records reviewed Mode of arrival: EMS Limitations: no limitations - History of Present Illness Initial comments: 65-year-old female with a history of pain rated cancer who presents with compla ints of the onset of lower GI bleeding yesterday she states on a toilet paper as well as in the toilet bright red blood. She also complains of 12/29 nonspecific abdominal pain nausea no vomiting decreased oral intake. She denies any fevers chills or sweats. MD complaint: blood on toilet paper, gross hematochezia - Related Data Home Medications Medication Instructions Recorded Confirmed amLODIPine BESYLATE/BENAZEPRIL 1 cap PO DAILY 09/25/13 01/03/21 [amLODIPine BESYLATE/BENAZEPRIL 10-40 MG] Famotidine 40 mg PO BID 11/24/20 01/03/21 Lipase/Protease/Amylase [Creon Dr 1 cap PO AC-TID 12/13/20 01/03/21 12,000 Units Capsule] HYDROcodone/APAP 5-325MG [[place] 1 tab PO TID PRN 12/21/20 01/03/21 5-325] Gabapentin [Neurontin] 300 mg PO BID 01/03/21 01/03/21 Potassium Chloride [Potassium 10 meq PO BID 01/03/21 01/03/21 Chloride ER] Previous Rx's Medication Instructions Recorded traMADol HCL 50 mg PO Q6H PRN #120 tablet 11/12/20 Allergies Allergy/AdvReac Type Severity Reaction Status Date / Time amylase [From Zenpep] AdvReac stomach Verified 01/03/21 13:44 pain erythromycin base AdvReac Nausea Verified 01/03/21 13:44 [Erythromycin Base] gabapentin AdvReac Hallucinati Verified 01/03/21 13:44 ons lipase [From Zenpep] AdvReac stomach Verified 01/03/21 13:44 pain protease [From Zenpep] AdvReac stomach Verified 01/03/21 13:44 pain Review of Systems ROS Statement: Those systems with pertinent positive or pertinent negative responses have been documented in the HPI. ROS Other: All systems not noted in ROS Statement are negative. 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, head tremor History of Any Multi-Drug Resistant Organisms: None Reported Past Surgical History: Orthopedic Surgery, Tubal Ligation Additional Past Surgical History / Comment(s): 2 pins right hip-dislocated 1975 Past Anesthesia/Blood Transfusion Reactions: No Reported Reaction Past Psychological History: Anxiety, Depression Smoking Status: Current every day smoker Past Alcohol Use History: Daily Past Drug Use History: None Reported - Past Family History Mother Family Medical History: Liver Disease Father Family Medical History: Cancer Additional Family Medical History / Comment(s): Lung and liver cancer. General Exam - General Exam Comments Initial Comments: This is a well-developed very thin appearing female who is awake alert oriented 3 Limitations: no limitations General appearance: alert, anxious, in distress ENT exam: Present: mucous membranes dry Neck exam: Present: normal inspection, full ROM. Absent: tenderness, meningismus, lymphadenopathy Respiratory exam: Present: normal lung sounds bilaterally. Absent: respiratory distress, wheezes, rales, rhonchi, stridor Cardiovascular Exam: Present: regular rate, normal rhythm, normal heart sounds. Absent: systolic murmur, diastolic murmur, rubs, gallop, clicks GI/Abdominal exam: Present: soft, distended, tenderness. Absent: bruit, pulsatile mass Rectal exam: Present: other (From hemorrhoids no active bleeding seen. Brown colored stool no gross bleeding at this time) Course Vital Signs 01/03/21 12:29 Temperature 97.3 F L Pulse Rate 81 Respiratory 20 Rate Blood Pressure 124/93 O2 Sat by Pulse 100 Oximetry Medical Decision Making - Medical Decision Making I did discuss Pfizer the patient and with Dr. Brito who did come see the patient patient be admitted - Lab Data Result diagrams: 01/03/21 13:14 01/03/21 13:14 Lab Results 01/03/21 01/03/21 01/03/21 Range/Units 13:14 13:14 13:14 WBC 9.5 (3.8-10.6) k/uL RBC 3.94 (3.80-5.40) m/uL Hgb 10.5 L (11.4-16.0) gm/dL Hct 31.6 L (34.0-46.0) % MCV 80.2 (80.0-100.0) fL MCH 26.6 (25.0-35.0) pg MCHC 33.2 (31.0-37.0) g/dL RDW 15.9 H (11.5-15.5) % Plt Count 329 (150-450) k/uL MPV 9.6 Neutrophils % 82 % Lymphocytes % 16 % Monocytes % 1 % Eosinophils % 1 % Basophils % 0 % Neutrophils # 7.8 H (1.3-7.7) k/uL Lymphocytes # 1.5 (1.0-4.8) k/uL Monocytes # 0.1 (0-1.0) k/uL Eosinophils # 0.0 (0-0.7) k/uL Basophils # 0.0 (0-0.2) k/uL PT 10.8 (9.0-12.0) sec INR 1.0 (<1.2) APTT 24.0 (22.0-30.0) sec Sodium 128 L (137-145) mmol/L Potassium 3.0 L (3.5-5.1) mmol/L Chloride 95 L (98-107) mmol/L Carbon Dioxide 25 (22-30) mmol/L Anion Gap 8 mmol/L BUN 8 (7-17) mg/dL Creatinine 0.41 L (0.52-1.04) mg/dL Est GFR (CKD-EPI)AfAm >90 (>60 ml/min/1.73 sqM) Est GFR (CKD-EPI)NonAf >90 (>60 ml/min/1.73 sqM) Glucose 151 H (74-99) mg/dL Plasma Lactic Acid Zen (0.7-2.0) mmol/L Calcium 8.2 L (8.4-10.2) mg/dL Magnesium 1.6 (1.6-2.3) mg/dL Total Bilirubin 1.3 (0.2-1.3) mg/dL AST 47 H (14-36) U/L ALT 29 (4-34) U/L Alkaline Phosphatase 760 H (38-126) U/L Troponin I (0.000-0.034) ng/mL Total Protein 5.8 L (6.3-8.2) g/dL Albumin 2.7 L (3.5-5.0) g/dL Lipase 27 (23-300) U/L Stool Occult Blood (Negative) 01/03/21 01/03/21 01/03/21 Range/Units 13:14 13:14 13:14 WBC (3.8-10.6) k/uL RBC (3.80-5.40) m/uL Hgb (11.4-16.0) gm/dL Hct (34.0-46.0) % MCV (80.0-100.0) fL MCH (25.0-35.0) pg MCHC (31.0-37.0) g/dL RDW (11.5-15.5) % Plt Count (150-450) k/uL MPV Neutrophils % % Lymphocytes % % Monocytes % % Eosinophils % % Basophils % % Neutrophils # (1.3-7.7) k/uL Lymphocytes # (1.0-4.8) k/uL Monocytes # (0-1.0) k/uL Eosinophils # (0-0.7) k/uL Basophils # (0-0.2) k/uL PT (9.0-12.0) sec INR (<1.2) APTT (22.0-30.0) sec Sodium (137-145) mmol/L Potassium (3.5-5.1) mmol/L Chloride (98-107) mmol/L Carbon Dioxide (22-30) mmol/L Anion Gap mmol/L BUN (7-17) mg/dL Creatinine (0.52-1.04) mg/dL Est GFR (CKD-EPI)AfAm (>60 ml/min/1.73 sqM) Est GFR (CKD-EPI)NonAf (>60 ml/min/1.73 sqM) Glucose (74-99) mg/dL Plasma Lactic Acid Zen 1.6 (0.7-2.0) mmol/L Calcium (8.4-10.2) mg/dL Magnesium (1.6-2.3) mg/dL Total Bilirubin (0.2-1.3) mg/dL AST (14-36) U/L ALT (4-34) U/L Alkaline Phosphatase (38-126) U/L Troponin I <0.012 (0.000-0.034) ng/mL Total Protein (6.3-8.2) g/dL Albumin (3.5-5.0) g/dL Lipase (23-300) U/L Stool Occult Blood Positive H (Negative) - EKG Data -: EKG Interpreted by Me EKG shows normal: sinus rhythm EKG Comments: Sinus tachycardia The rate of 104. Interval 1:30 QRS duration 84 QT since QTC 338/[address]-T wave configuration - Radiology Data Radiology results: report reviewed (Imaging reviewed no acute findings.), image reviewed Disposition Clinical Impression: Abdominal pain, Pancreatic cancer, Dehydration, Rectal bleed Disposition: [facility] Condition: Fair Referrals: Sheron Lorenz MD [Primary Care Provider] - 1-2 days
[2021-01-03 13:35] LABS: Basophils % (A) 0 %; Eosinophils % (A) 1 %; HCT 31.6 % (34.0-46.0); HGB 10.5 gm/dL (11.4-16.0); Lymphocytes # (A) 1.5 k/uL (1.0-4.8); Lymphocytes % (A) 16 %; MCH 26.6 pg (25.0-35.0); MCHC 33.2 g/dL (31.0-37.0); MCV 80.2 fL (80.0-100.0); Mean Platelet Volume 9.6; Monocytes # (A) 0.1 k/uL (0-1.0); Monocytes % (A) 1 %; Neutrophils # (A) 7.8 k/uL (1.3-7.7); Neutrophils % (A) 82 %; Platelet Count 329 k/uL (150-450); RBC 3.94 m/uL (3.80-5.40); RDW 15.9 % (11.5-15.5); WBC 9.5 k/uL (3.8-10.6)
[2021-01-03 13:46] LABS: ALT 29 U/L (4-34); AST 47 U/L (14-36); African American GFR (CKD) >90 (>60 ml/min/1.73 sqM); Albumin 2.7 g/dL (3.5-5.0); Alkaline Phosphatase 760 U/L (38-126); Anion Gap 8 mmol/L; Blood Urea Nitrogen 8 mg/dL (7-17); Calcium 8.2 mg/dL (8.4-10.2); Carbon Dioxide 25 mmol/L (22-30); Chloride 95 mmol/L (98-107); Glucose 151 mg/dL (74-99); Lipase 27 U/L (23-300); Magnesium 1.6 mg/dL (1.6-2.3); Non-African American GFR(CKD) >90 (>60 ml/min/1.73 sqM); Sodium 128 mmol/L (137-145); Total Bilirubin 1.3 mg/dL (0.2-1.3); Total Protein 5.8 g/dL (6.3-8.2)
[2021-01-03 13:51] LABS: Prothrombin Time 10.8 sec (9.0-12.0)
--- NOTE | 2021-01-03 15:04 | XR ---
EXAMINATION TYPE: XR KUB DATE OF EXAM: 01/03/2021 3:00 PM CLINICAL HISTORY: Abdominal pain. TECHNIQUE: Two supine KUB images of the abdomen are obtained. COMPARISON: Abdominal x-ray [address] abdomen and pelvis November 27, 2020 FINDINGS: Gas is seen in nondistended stomach. Scattered gas is seen in non-distended small bowel loo ps. There is redemonstration of metallic internal biliary stent. Peripheral pneumobilia redemonstrate d. Lung bases remain clear. Partial visualization of surgical change to the right proximal femur calc ifications right mid abdomen corresponding to pancreatic calcifications related to chronic pancreatit is redemonstrated. IMPRESSION: Overall nonobstructive bowel gas pattern redemonstrated.
[2021-01-03] MEDS ORDERED: NALOXONE 0.4 MG/ML 1 ML VIAL IV PRN (15:43)
[2021-01-03] MEDS ORDERED: ONDANSETRON 4 MG/2 ML VIAL IVP PRN (15:43)
[2021-01-03] MEDS ORDERED: SODIUM CHLORIDE 0.9% 1,000 ML IV SCH (15:45)
[2021-01-03] MEDS ORDERED: TEMAZEPAM 15 MG CAP PO PRN (16:23)
[2021-01-03] MEDS ORDERED: ALPRAZolam 0.25 MG TAB PO PRN (16:23)
[2021-01-03 16:29] LABS: Basophils % (A) 0 %; Eosinophils # (A) 0.1 k/uL (0-0.7); Eosinophils % (A) 1 %; HCT 26.9 % (34.0-46.0); Lymphocytes # (A) 1.3 k/uL (1.0-4.8); Lymphocytes % (A) 15 %; MCH 26.7 pg (25.0-35.0); MCHC 33.2 g/dL (31.0-37.0); MCV 80.3 fL (80.0-100.0); Mean Platelet Volume 9.1; Monocytes # (A) 0.1 k/uL (0-1.0); Monocytes % (A) 1 %; Neutrophils # (A) 7.1 k/uL (1.3-7.7); Neutrophils % (A) 83 %; Platelet Count 271 k/uL (150-450); RBC 3.35 m/uL (3.80-5.40); RDW 15.9 % (11.5-15.5); WBC 8.6 k/uL (3.8-10.6)
[2021-01-03 16:32] LABS: HGB 8.9 gm/dL (11.4-16.0)
[2021-01-03] MEDS: HYDROmorphone 0.5 MG/0.5 ML SYRINGE IVP PRN ×2 (17:22→21:50)
--- NOTE | 2021-01-03 17:35 | HP ---
HISTORY AND PHYSICAL DATE OF SERVICE: 01/03/2021 CHIEF COMPLAINT: Rectal bleeding as well as severe abdominal pain. HISTORY OF PRESENT ILLNESS: This 65-year-old woman with a past medical history of pancreatic cancer without any METS and a PET scan probably not on any active treatment was recently admitted with intractable pain. Patient was treated symptomatically. Patient improved significantly. Currently the patient has come in again intractable pain as well as some rectal bleeding. The pain was 10/10 in intensity. Patient is extremely emaciated with body mass index 15.2. The initial evaluation showed hemoglobin 10.5, sodium 128, potassium 3 and the patient admitted to the hospital for further evaluation and treatment. Stool OB is positive. Alkaline phosphatase 760. There is no history of fever, rigors or chills. No history of headache, loss of consciousness, seizures. The patient being followed by Dr. Sheron Lorenz in the outpatient setting. PAST MEDICAL HISTORY: History of pancreatic cancer, history of diabetes, type 2, hypertension, hyperlipidemia, history of DJD, history of osteoporosis. MEDICATIONS: Home medications are reviewed and include: Ultram 50 mg q.6 p.r.n., Norvasc. KCl. Creon. Hydrocodone, Neurontin and Pepcid. ALLERGIES: MULTIPLE ALLERGIES INCLUDING AMYLASE, ERYTHROMYCIN, GABAPENTIN, LIPASE . FAMILY HISTORY: History of liver disease, lung and liver cancer. SOCIAL HISTORY: History of smoking. No history of alcohol. REVIEW OF SYSTEMS: ENT: No diminished vision. No diminished hearing. CARDIOVASCULAR system: No angina or palpitations. RESPIRATION: As mentioned earlier. GI: As mentioned earlier. : No dysuria or hematuria. NERVOUS SYSTEM: No numbness or weakness. ALLERGY/IMMUNOLOGY: No asthma or hayfever. MUSCULOSKELETAL: As mentioned earlier. HEMATOLOGY/ONCOLOGY: No history of anemia. ENDOCRINE: As mentioned earlier. CONSTITUTIONAL: As mentioned earlier. DERMATOLOGY: Negative. RHEUMATOLOGY: Negative. PSYCHIATRIC: As mentioned earlier. PHYSICAL EXAMINATION: Patient is alert, oriented x3. Pulse is 85. Blood pressure 119/75, respiration 20, temperature is normal, pulse ox 97% on room air. HEENT: Conjunctivae normal. NECK: No JVD. CARDIOVASCULAR: S1, S2 muffled. RESPIRATORY SYSTEM: Breath sounds diminished at the bases. A few scattered rhonchi and crackles. ABDOMEN: Soft, mild diffuse tenderness present. Otherwise scaphoid. LEGS: No edema. No swelling. NERVOUS SYSTEM: Higher functions as mentioned. Moves all four limbs. LYMPHATICS: No lymph nodes palpable in the neck, axillae or groin. SKIN: No ulcers, no rashes and no bleeding. JOINTS: No active deforming arthropathy. LAB STUDIES: WBC 9.1, hemoglobin 10.5. Sodium 120, potassium 3. ASSESSMENT: 1. Pancreatic cancer with severe abdominal pain with failure of outpatient treatment. 2. Possible gastrointestinal bleed with rectal bleeding. 3. Anemia, multifactorial. 4. Hyponatremia. 5. Hypokalemia. 6. Elevated alkaline phosphatase. 7. History of diabetes type 2. 8. Hypertension. 9. Hyperlipidemia. 10.Degenerative joint disease. 11.History of back pain. 12.History of sciatica. 13.History of degenerative joint disease. 14.Anxiety, depression. 15.History of nicotine dependence. 16.FULL CODE. 17.Remote history of ETOH. 18.Severe protein calorie malnutrition. RECOMMENDATIONS AND DISCUSSION: This is 65-year-old woman who presented with multiple complex medical issues, we will monitor the patient closely, continue the current medications, symptomatic treatment. . Continue the pain medications. I would also recommend monitor hemoglobin closely. Otherwise, closely follow with Hematology/Oncology. Repeat labs. Supplement potassium. Hydration. Guarded prognosis because of multiple complex medical issues. Further recommendations to follow. A copy of dictation being forwarded to Dr. Sheron Lorenz who is the primary physician. [place] / BLADE: [id number] / MTDD
[2021-01-03] MEDS ORDERED: Potassium Replacement Protocol 1 EACH MISC MISCELLANE PRN (19:00)
[2021-01-03] MEDS: POTASSIUM CHLORIDE ER 20 MEQ TAB.ER PO SCH ×3 (19:05→23:15)
[2021-01-03] MEDS: 0.9% NACL WITH KCL 20 MEQ/L 1,000 ML IV SCH ×2 (19:36→21:55)
[2021-01-03] MEDS: GABAPENTIN 300 MG CAP PO SCH (21:43)
[2021-01-03] MEDS: HEPARIN SODIUM,PORCINE/PF 5,000 UNIT/0.5 ML SYRINGE SQ SCH (21:55)
[2021-01-03] MEDS: PANTOPRAZOLE 40 MG/10 ML VIAL IVP SCH (21:55)
[2021-01-04] MEDS: HYDROmorphone 0.5 MG/0.5 ML SYRINGE IVP PRN ×7 (00:36→23:49)
[2021-01-04] MEDS: 0.9% NACL WITH KCL 20 MEQ/L 1,000 ML IV SCH ×4 (02:07→20:41)
[2021-01-04] MEDS: GABAPENTIN 300 MG CAP PO SCH ×3 (08:23→20:41)
[2021-01-04] MEDS: PANTOPRAZOLE 40 MG/10 ML VIAL IVP SCH ×2 (08:33→20:41)
[2021-01-04] MEDS: lisinopriL 20 MG TAB PO SCH (08:33)
[2021-01-04] MEDS: HEPARIN SODIUM,PORCINE/PF 5,000 UNIT/0.5 ML SYRINGE SQ SCH ×2 (08:33→20:37)
[2021-01-04] MEDS: amLODIPine 10 MG TAB PO SCH (08:34)
[2021-01-04 09:21] LABS: Anisocytosis Slight; Basophils % (A) 0 %; Eosinophils % (A) 0 %; HCT 26.3 % (34.0-46.0); HGB 8.7 gm/dL (11.4-16.0); Lymphocytes % (A) 23 %; MCHC 33.3 g/dL (31.0-37.0); Mean Platelet Volume 9.3; Monocytes # (A) 0.1 k/uL (0-1.0); Monocytes % (A) 2 %; Neutrophils # (A) 3.1 k/uL (1.3-7.7); Neutrophils % (A) 72 %; Platelet Count 251 k/uL (150-450); RBC 3.24 m/uL (3.80-5.40); RDW 16.3 % (11.5-15.5); WBC 4.2 k/uL (3.8-10.6)
[2021-01-04 09:33] LABS: ALT 19 U/L (4-34); AST 24 U/L (14-36); African American GFR (CKD) >90 (>60 ml/min/1.73 sqM); Alkaline Phosphatase 485 U/L (38-126); Anion Gap 5 mmol/L; Blood Urea Nitrogen 6 mg/dL (7-17); Calcium 7.4 mg/dL (8.4-10.2); Carbon Dioxide 20 mmol/L (22-30); Chloride 106 mmol/L (98-107); Glucose 175 mg/dL (74-99); Magnesium 1.6 mg/dL (1.6-2.3); Non-African American GFR(CKD) >90 (>60 ml/min/1.73 sqM); Potassium 4.3 mmol/L (3.5-5.1); Sodium 131 mmol/L (137-145); Total Bilirubin 0.9 mg/dL (0.2-1.3); Total Protein 4.5 g/dL (6.3-8.2)
[2021-01-04] MEDS ORDERED: MAGNESIUM HYDROXIDE 2,400 MG/10 ML CUP PO PRN (11:06)
--- NOTE | 2021-01-04 11:28 | P.PN ---
Subjective Progress Note Date: 01/04/21 The patient is still complaining of upper mid abdominal pain. She states that she had a small bowel movement yesterday but has been constipated mostly. She has some nausea off and on. She states that she had noted some red blood in her stool yesterday. Objective - Vital Signs Vital signs: Vital Signs Temp 98.2 F 01/04/21 08:00 Pulse 80 01/04/21 08:00 Resp 16 01/04/21 08:00 BP 124/75 01/04/21 08:00 Pulse Ox 100 01/04/21 08:00 Intake & Output 01/03/21 01/04/21 01/04/21 18:59 06:59 18:59 Intake Total 118 1770 480 Balance 118 1770 480 Weight 43.998 kg 40.6 kg Intake: Intake, IV Titration 1430 Amount 0.9% NaCl with KCl 20 Meq 1430 /l 1,000 ml @ 130 mls/hr IV .Q7H42M [facility] Rx#: [id number] Oral 118 340 480 Other: # Voids 3 - Constitutional General appearance: Present: mild distress - EENT Eyes: Present: EOMI ENT: Present: hearing grossly normal, normal oropharynx - Respiratory Respiratory: bilateral: CTA - Cardiovascular Rhythm: regular Heart sounds: normal: S1, S2 - Gastrointestinal General gastrointestinal: Present: normal bowel sounds, soft Localized gastrointestinal: tender: epigastric periumbilical, guarding: epigastric periumbilical - Integumentary Integumentary: Present: normal - Neurologic Neurologic: Present: CNII-XII intact - Musculoskeletal Musculoskeletal: Present: generalized weakness, strength equal bilaterally - Psychiatric Psychiatric: Present: A&O x's 3, appropriate affect - Labs CBC & Chem 7: 01/04/21 08:54 01/04/21 08:54 Labs: Abnormal Lab Results - Last 24 Hours (Table) 01/03/21 01/03/21 01/03/21 Range/Units 13:14 13:14 13:14 RBC (3.80-5.40) m/uL Hgb 10.5 L (11.4-16.0) gm/dL Hct 31.6 L (34.0-46.0) % RDW 15.9 H (11.5-15.5) % Neutrophils # 7.8 H (1.3-7.7) k/uL Sodium 128 L (137-145) mmol/L Potassium 3.0 L (3.5-5.1) mmol/L Chloride 95 L (98-107) mmol/L Carbon Dioxide (22-30) mmol/L BUN (7-17) mg/dL Creatinine 0.41 L (0.52-1.04) mg/dL Glucose 151 H (74-99) mg/dL Calcium 8.2 L (8.4-10.2) mg/dL AST 47 H (14-36) U/L Alkaline Phosphatase 760 H (38-126) U/L Total Protein 5.8 L (6.3-8.2) g/dL Albumin 2.7 L (3.5-5.0) g/dL Stool Occult Blood Positive H (Negative) 01/03/21 01/04/21 01/04/21 Range/Units 16:18 08:54 08:54 RBC 3.35 L 3.24 L (3.80-5.40) m/uL Hgb 8.9 L D 8.7 L (11.4-16.0) gm/dL Hct 26.9 L 26.3 L (34.0-46.0) % RDW 15.9 H 16.3 H (11.5-15.5) % Neutrophils # (1.3-7.7) k/uL Sodium 131 L (137-145) mmol/L Potassium (3.5-5.1) mmol/L Chloride (98-107) mmol/L Carbon Dioxide 20 L (22-30) mmol/L BUN 6 L (7-17) mg/dL Creatinine 0.31 L (0.52-1.04) mg/dL Glucose 175 H (74-99) mg/dL Calcium 7.4 L (8.4-10.2) mg/dL AST (14-36) U/L Alkaline Phosphatase 485 H (38-126) U/L Total Protein 4.5 L (6.3-8.2) g/dL Albumin 2.0 L (3.5-5.0) g/dL Stool Occult Blood (Negative) Assessment and Plan (1) Abdominal pain Narrative/Plan: This has been a recurring problem for this patient, as well as had multiple admissions for the same. This is felt to be multifactorial, likely due to mass effects from the tumor, as well as probable chronic pancreatitis with intermittent exacerbations. There may also be a contribution from gastritis. During her previous admissions, it appear that there was possible relationship to what the patient was eating. - Abdominal x-ray does not show any evidence of perforation. - Continue current pain regimen. The patient will typically improves with supportive care within one to 3 days. - Continue PPI - Resume Creon which was started as an outpatient recently. Current Visit: Yes Status: Acute Priority: High Code(s): R10.9 - UNSPE CIFIED ABDOMINAL PAIN SNOMED Code(s): 92473409 (2) Pancreatic cancer Narrative/Plan: The patient has localized disease and is currently undergoing chemotherapy with neoadjuvant intent with plan for resection subsequently if she has a response. She has had 2/3 weekly treatments of gemcitabine and Abraxane of cycle 1. Monitor counts while inpatient Current Visit: Yes Status: Acute Priority: High Code(s): C25.9 - MALIGNANT NEOPLASM OF PANCREAS, UNSPECIFIED SNOMED Code(s): 808699455 (3) Rectal bleed Narrative/Plan: The patient did report some red blood in her stool yesterday which according to her was one of the reasons for coming to the hospital. Her hemoglobin did drop into the 8-9 range. - Current hemoglobin is a drop from her usual baseline, but the patient is also on chemotherapy. Continue to monitor for any progressive/recurrent blood loss. Transfuse to keep hemoglobin greater than 7 Current Visit: Yes Status: Acute Code(s): K62.5 - HEMORRHAGE OF ANUS AND RECTUM SNOMED Code(s): 46290344 Plan: The patient will be placed on a bowel regimen inpatient she is complaining of constipation, which could be contributing to her symptoms
[2021-01-04 11:48] LABS: Glucose,Whole Blood 152 mg/dL (75-99)
[2021-01-04] MEDS: DOCUSATE 100 MG CAP PO SCH (12:39)
--- NOTE | 2021-01-04 13:51 | P.CONS ---
History of Present Illness - Reason for Consult Consult date: 01/03/21 Pancreatic Cancer Requesting physician: Yvrose Brito - Chief Complaint Abdominal Pain - History of Present Illness Nannette is a patient known to us for her recent diagnosis of Pancreatic cancer, unfortunetly she has had a delay in treatment starting due to recurrent hospitalization's for abdominal pain. She was eventually started on 12/23/20. She presents back to hospital with abdominal pain, inability to eat well, weight loss. 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, head tremor rectal bleeding History of Any Multi-Drug Resistant Organisms: None Reported Past Surgical History: Orthopedic Surgery, Tubal Ligation Additional Past Surgical History / Comment(s): 2 pins right hip-dislocated 1975 Past Anesthesia/Blood Transfusion Reactions: No Reported Reaction Past Psychological History: Anxiety, Depression Smoking Status: Current every day smoker Past Alcohol Use History: Daily Additional Past Alcohol Use History / Comment(s): started smoking @ age 17(1971)- 1 pack a day; pt. states she quit drinking August 2020 Past Drug Use History: None Reported Additional Drug Use History / Comment(s): Quit drinking after her last discharge, 09/07/20 was drinking 3-4 beers a day - Past Family History Mother Family Medical History: Liver Disease Father Family Medical History: Cancer Additional Family Medical History / Comment(s): Lung and liver cancer. Medications and Allergies Home Medications Medication Instructions Recorded Confirmed Type amLODIPine BESYLATE/BENAZEPRIL 1 cap PO DAILY 09/25/13 01/03/21 History [amLODIPine BESYLATE/BENAZEPRIL 10-40 MG] traMADol HCL 50 mg PO Q6H PRN #120 tablet 11/12/20 01/03/21 Rx Famotidine 40 mg PO BID 11/24/20 01/03/21 History Lipase/Protease/Amylase [Jorgeon Dr 1 cap PO AC-TID 12/13/20 01/03/21 History 12,000 Units Capsule] HYDROcodone/APAP 5-325MG [[place] 1 tab PO TID PRN 12/21/20 01/03/21 History 5-325] Gabapentin [Neurontin] 300 mg PO BID 01/03/21 01/03/21 History Potassium Chloride [Potassium 10 meq PO BID 01/03/21 01/03/21 History Chloride ER] Allergies Allergy/AdvReac Type Severity Reaction Status Date / Time amylase [From Zenpep] AdvReac stomach Verified 01/03/21 13:44 pain erythromycin base AdvReac Nausea Verified 01/03/21 13:44 [Erythromycin Base] gabapentin AdvReac Hallucinati Verified 01/03/21 13:44 ons lipase [From Zenpep] AdvReac stomach Verified 01/03/21 13:44 pain protease [From Zenpep] AdvReac stomach Verified 01/03/21 13:44 pain Physical Exam Vitals: Vital Signs Temp Pulse Pulse Resp BP BP Pulse Ox 01/03/21 18:11 84 16 01/03/21 16:00 98.3 F 85 84 16 119/75 115/80 100 01/03/21 15:30 82 15 130/77 96 01/03/21 15:00 86 16 117/73 97 01/03/21 14:30 84 16 113/76 97 01/03/21 14:00 88 20 109/72 95 01/03/21 13:30 84 15 107/85 96 01/03/21 13:00 96 15 97/80 99 01/03/21 12:38 90 12 97/80 01/03/21 12:29 97.3 F L 81 20 124/93 100 Intake and Output 01/03/21 01/03/21 01/03/21 06:59 14:59 22:59 Other: Weight 43.998 kg 43.998 kg Cachetic Head NCAT Neck Supple Lungs: CTA Abdomen soft, tender Legs no edema Calm and alert Results CBC & Chem 7: 01/04/21 08:54 01/04/21 08:54 Labs: Abnormal Lab Results - Last 24 Hours (Table) 01/03/21 01/03/21 01/03/21 Range/Units 13:14 13:14 13:14 RBC (3.80-5.40) m/uL Hgb 10.5 L (11.4-16.0) gm/dL Hct 31.6 L (34.0-46.0) % RDW 15.9 H (11.5-15.5) % Neutrophils # 7.8 H (1.3-7.7) k/uL Sodium 128 L (137-145) mmol/L Potassium 3.0 L (3.5-5.1) mmol/L Chloride 95 L (98-107) mmol/L Creatinine 0.41 L (0.52-1.04) mg/dL Glucose 151 H (74-99) mg/dL Calcium 8.2 L (8.4-10.2) mg/dL AST 47 H (14-36) U/L Alkaline Phosphatase 760 H (38-126) U/L Total Protein 5.8 L (6.3-8.2) g/dL Albumin 2.7 L (3.5-5.0) g/dL Stool Occult Blood Positive H (Negative) 01/03/21 Range/Units 16:18 RBC 3.35 L (3.80-5.40) m/uL Hgb 8.9 L D (11.4-16.0) gm/dL Hct 26.9 L (34.0-46.0) % RDW 15.9 H (11.5-15.5) % Neutrophils # (1.3-7.7) k/uL Sodium (137-145) mmol/L Potassium (3.5-5.1) mmol/L Chloride (98-107) mmol/L Creatinine (0.52-1.04) mg/dL Glucose (74-99) mg/dL Calcium (8.4-10.2) mg/dL AST (14-36) U/L Alkaline Phosphatase (38-126) U/L Total Protein (6.3-8.2) g/dL Albumin (3.5-5.0) g/dL Stool Occult Blood (Negative) Assessment and Plan (1) Malnutrition Current Visit: Yes Status: Acute Code(s): E46 - UNSPECIFIED PROTEIN-CALORIE MALNUTRITION SNOMED Code(s): 31018379 (2) Abdominal pain Current Visit: Yes Status: Acute Priority: High Code(s): R10.9 - UNSPECIFIED ABDOMINAL PAIN SNOMED Code(s): 65130356 (3) Dehydration Current Visit: Yes Status: Acute Code(s): E86.0 - DEHYDRATION SNOMED Code(s): 36915618 (4) Pancreatic cancer Current Visit: Yes Status: Acute Priority: High Code(s): C25.9 - MALIGNANT NEOPLASM OF PANCREAS, UNSPECIFIED SNOMED Code(s): 755844033 (5) Hypokalemia Current Visit: No Status: Acute Code(s): E87.6 - HYPOKALEMIA SNOMED Code(s): 78376116 Plan: Assessment and Recommendations: Abdominal Pain: - Re-educated on remaining adherent to a regimen for pain and healthy bowel movements - resume Creon - Assess for UTI Malnutrition: Moderatee: - Continues to lose weight, states she is not hungry and feels full - Will add marinol - Referral to dietitcien. Pancreatic Cancer: - Status POst 2/3 of cycle one only - COntinue after discharge
[2021-01-04 16:38] LABS: Glucose,Whole Blood 169 mg/dL (75-99)
[2021-01-04 18:32] LABS: % Iron Saturation 16.04 (12.00-45.00); Iron 19 ug/dL (50-170); Total Iron Binding Capacity 117 ug/dL (228-460)
[2021-01-04 20:15] LABS: Appearance,Urine Clear (Clear); Bilirubin,Urine Negative (Negative); Blood,Urine Negative (Negative); Color,Urine Yellow; Glucose,Urine (UA) Negative (Negative); Ketones,Urine Negative (Negative); Leukocyte Esterase,Urine Negative (Negative); Nitrite,Urine Negative (Negative); PH, Urine 7.5 (5.0-8.0); Protein,Urine Trace (Negative); Specific Gravity,Urine 1.015 (1.001-1.035)
--- NOTE | 2021-01-04 21:45 | PN ---
PROGRESS NOTE DATE OF SERVICE: 01/04/2021. This 65-year-old woman who was admitted with severe abdominal pain also had rectal bleeding. The patient had a history of pancreatic cancer. The hemoglobin is 8.7 today. Otherwise, CA99 was elevated. Hematology/Oncology is following the patient closely. Stool OB is positive. No chest pain. No palpitations. No fever. PHYSICAL EXAMINATION: Alert and oriented x3. Pulse 89, blood pressure 134/80, respirations 16, temperature 98.2, pulse ox 100% on room air. HEENT: Conjunctivae normal. NECK: No jugular venous distention. CARDIOVASCULAR: S1, S2 muffled. RESPIRATION: Breath sounds diminished at the bases. No rhonchi. No crackles. ABDOMEN: Soft. Mild diffuse tenderness. LEGS: No edema. No swelling. NERVOUS SYSTEM: No focal deficit. LABS: WBC 4.2, hemoglobin is 8.7. ASSESSMENT: 1. Pancreatic cancer with severe abdominal pain with failure of outpatient treatment. 2. Possible gastrointestinal bleed with rectal bleeding. 3. Anemia, multifactorial. Also secondary to malignancy as well as blood-loss anemia, acute. 4. Hyponatremia. 5. Hypokalemia. 6. Elevated alkaline phosphatase. 7. History of diabetes mellitus, type 2. 8. Hypertension. 9. Hyperlipidemia. 10.History of degenerative joint disease. 11.History of back pain. 12.History of sciatica. 13.History of degenerative joint disease. 14.Anxiety, depression. 15.History of nicotine dependence. 16.Remote history of ETOH. 17.Severe protein-calorie malnutrition. 18.FULL CODE. RECOMMENDATIONS AND DISCUSSION: I recommend to continue current medications, continue with symptomatic treatment. Repeat labs. The pain is slightly improved at this time. We will continue the current regimen and closely follow with Dr. Muller. Further recommendations to follow. MMODL / IJN: [id number] /
[2021-01-05] MEDS: HYDROmorphone 0.5 MG/0.5 ML SYRINGE IVP PRN ×3 (06:16→21:29)
[2021-01-05] MEDS: 0.9% NACL WITH KCL 20 MEQ/L 1,000 ML IV SCH ×2 (06:17→14:59)
[2021-01-05 08:11] LABS: Anisocytosis Slight; Basophils % (A) 0 %; Eosinophils % (A) 0 %; HGB 8.7 gm/dL (11.4-16.0); Lymphocytes % (A) 19 %; MCH 26.8 pg (25.0-35.0); MCHC 32.2 g/dL (31.0-37.0); MCV 83.2 fL (80.0-100.0); Mean Platelet Volume 9.3; Monocytes # (A) 0.3 k/uL (0-1.0); Monocytes % (A) 5 %; Neutrophils # (A) 3.8 k/uL (1.3-7.7); Neutrophils % (A) 74 %; Platelet Count 211 k/uL (150-450); RBC 3.25 m/uL (3.80-5.40); RDW 16.3 % (11.5-15.5); WBC 5.2 k/uL (3.8-10.6)
[2021-01-05 08:24] LABS: African American GFR (CKD) >90 (>60 ml/min/1.73 sqM); Anion Gap 4 mmol/L; Blood Urea Nitrogen <2 mg/dL (7-17); Calcium 7.5 mg/dL (8.4-10.2); Carbon Dioxide 18 mmol/L (22-30); Chloride 108 mmol/L (98-107); Glucose 151 mg/dL (74-99); Non-African American GFR(CKD) >90 (>60 ml/min/1.73 sqM); Sodium 130 mmol/L (137-145)
[2021-01-05] MEDS: DOCUSATE 100 MG CAP PO SCH (08:30)
[2021-01-05] MEDS: PANTOPRAZOLE 40 MG/10 ML VIAL IVP SCH ×2 (08:30→21:29)
[2021-01-05] MEDS: amLODIPine 10 MG TAB PO SCH (08:30)
[2021-01-05] MEDS: GABAPENTIN 300 MG CAP PO SCH ×2 (08:30→21:29)
[2021-01-05] MEDS: lisinopriL 20 MG TAB PO SCH (08:30)
[2021-01-05] MEDS: HEPARIN SODIUM,PORCINE/PF 5,000 UNIT/0.5 ML SYRINGE SQ SCH ×2 (08:33→23:14)
--- NOTE | 2021-01-05 18:18 | PN ---
PROGRESS NOTE DATE OF SERVICE: 01/05/2021 This 65-year-old woman who was admitted with pancreatic cancer, history of abdominal pain, failure of outpatient treatment, is being closely monitored. No chest pain. No palpitations. No fever. PHYSICAL EXAMINATION: Alert and oriented x2. Pulse is 90, blood pressure 129/79, respiration 20, temperature 99 degrees, pulse ox 100% on room air. HEENT: Conjunctivae normal. NECK: No jugular venous distention. CARDIOVASCULAR: S1, S2 muffled. RESPIRATION: Breath sounds diminished at the bases. No rhonchi. No crackles. ABDOMEN: Soft. Mild diffuse discomfort. LEGS: No edema. No swelling. NERVOUS SYSTEM: No focal deficit. LABS: WBC 5.2, hemoglobin 8.7, sodium 130. Other labs are noted. ASSESSMENT: 1. Pancreatic cancer with severe abdominal pain and failure of outpatient treatment. 2. Possible acute gastrointestinal bleed with rectal bleeding with acute blood loss anemia, multifactorial, including secondary to malignancy as well as acute blood loss anemia. 3. Hyponatremia. 4. Hypokalemia. 5. Elevated alkaline phosphatase. 6. History of diabetes mellitus, type 2. 7. Hypertension. 8. Hyperlipidemia. 9. History of degenerative joint disease. 10.History of back pain. 11.History of sciatica. 12.History of anxiety, depression. 13.History of nicotine dependence. 14.Remote history of ETOH. 15.Severe protein-calorie malnutrition. 16.FULL CODE. RECOMMENDATIONS AND DISCUSSION: I recommend to continue current medications, continue with symptomatic treatment. Otherwise at this time I recommend repeat labs and closely follow with multiple consultants. Continue the pain medications. Hematology/Oncology. Guarded prognosis. Further recommendations to follow. MMODL / IJN: [id number] /
[2021-01-06] MEDS: 0.9% NACL WITH KCL 20 MEQ/L 1,000 ML IV SCH ×3 (03:24→16:54)
[2021-01-06 08:28] LABS: Anisocytosis Slight; Basophils % (A) 0 %; Eosinophils # (A) 0.1 k/uL (0-0.7); Eosinophils % (A) 1 %; HCT 29.1 % (34.0-46.0); HGB 9.4 gm/dL (11.4-16.0); Lymphocytes # (A) 1.3 k/uL (1.0-4.8); Lymphocytes % (A) 14 %; MCH 26.6 pg (25.0-35.0); MCHC 32.3 g/dL (31.0-37.0); MCV 82.5 fL (80.0-100.0); Mean Platelet Volume 10.3; Monocytes # (A) 0.5 k/uL (0-1.0); Monocytes % (A) 6 %; Neutrophils # (A) 6.9 k/uL (1.3-7.7); Neutrophils % (A) 77 %; Platelet Count 195 k/uL (150-450); RBC 3.53 m/uL (3.80-5.40); RDW 16.4 % (11.5-15.5)
[2021-01-06 09:13] LABS: African American GFR (CKD) >90 (>60 ml/min/1.73 sqM); Anion Gap 4 mmol/L; Blood Urea Nitrogen <2 mg/dL (7-17); Calcium 7.5 mg/dL (8.4-10.2); Carbon Dioxide 18 mmol/L (22-30); Chloride 108 mmol/L (98-107); Glucose 113 mg/dL (74-99); Non-African American GFR(CKD) >90 (>60 ml/min/1.73 sqM); Potassium 3.7 mmol/L (3.5-5.1); Sodium 130 mmol/L (137-145)
[2021-01-06] MEDS: HEPARIN SODIUM,PORCINE/PF 5,000 UNIT/0.5 ML SYRINGE SQ SCH ×2 (09:31→20:34)
[2021-01-06] MEDS: HYDROmorphone 0.5 MG/0.5 ML SYRINGE IVP PRN ×3 (09:32→16:53)
[2021-01-06] MEDS: amLODIPine 10 MG TAB PO SCH (09:33)
[2021-01-06] MEDS: lisinopriL 20 MG TAB PO SCH (09:33)
[2021-01-06] MEDS: DOCUSATE 100 MG CAP PO SCH (09:33)
[2021-01-06] MEDS: PANTOPRAZOLE 40 MG/10 ML VIAL IVP SCH ×2 (09:33→20:30)
[2021-01-06] MEDS: GABAPENTIN 300 MG CAP PO SCH ×2 (09:33→20:29)
--- NOTE | 2021-01-06 10:15 | P.PN ---
Subjective Progress Note Date: 01/06/21 Principal diagnosis: abd pain, rectal bleeding In f/u pt cont on pain meds for abd pain, does help take the edge off, she is very hungry this AM and wants to try cereal. She has had 3 BMs in the last day, denies any black or bloody stools. Objective - Vital Signs Vital signs: Vital Signs Temp 98.7 F 01/06/21 08:00 Pulse 85 01/06/21 08:00 Resp 16 01/06/21 08:00 BP 141/67 01/06/21 08:00 Pulse Ox 100 01/06/21 08:00 Intake & Output 01/05/21 01/06/21 01/06/21 18:59 06:59 18:59 Intake Total 680 200 Balance 680 200 Weight 43.2 kg Intake: Oral 680 200 Other: Voiding Method Toilet # Voids 0 2 0 # Bowel Movements 0 0 - Constitutional General appearance: Present: cooperative, no acute distress, thin - EENT Eyes: Present: anicteric sclerae, EOMI ENT: Present: hearing grossly normal - Respiratory Respiratory: bilateral: CTA - Cardiovascular Heart sounds: normal: S1, S2 Abnormal Heart Sounds: Absent: systolic murmur, diastolic murmur, rub, S3 Gallop, S4 Gallop, click, other - Peripheral edema leg Peripheral Edema: bilateral: None - Gastrointestinal General gastrointestinal: Present: normal bowel sounds, soft, tenderness. Abs ent: absent bowel sounds, decreased bowel sounds, distended, hepatomegaly, hyperactive bowel sounds, organomegaly, rigid, scaphoid, splenomegaly, umbilical hernia, ventral hernia Localized gastrointestinal: tender: epigastric periumbilical - Neurologic Neurologic: Present: CNII-XII intact - Musculoskeletal Musculoskeletal: Present: strength equal bilaterally - Psychiatric Psychiatric: Present: A&O x's 3, appropriate affect, intact judgment & insight - Labs CBC & Chem 7: 01/06/21 07:38 01/06/21 07:38 Labs: Abnormal Lab Results - Last 24 Hours (Table) 01/06/21 01/06/21 Range/Units 07:38 07:38 RBC 3.53 L (3.80-5.40) m/uL Hgb 9.4 L (11.4-16.0) gm/dL Hct 29.1 L (34.0-46.0) % RDW 16.4 H (11.5-15.5) % Sodium 130 L (137-145) mmol/L Chloride 108 H (98-107) mmol/L Carbon Dioxide 18 L (22-30) mmol/L BUN <2 L (7-17) mg/dL Creatinine 0.34 L (0.52-1.04) mg/dL Glucose 113 H (74-99) mg/dL Calcium 7.5 L (8.4-10.2) mg/dL Assessment and Plan (1) Abdominal pain Narrative/Plan: Multifactorial including constipation, malignancy and possibly digestion of food. Pt pain controlled with dietary changes and pain medications. She will need to continue regimen outpt Current Visit: Yes Status: Acute Priority: High Code(s): R10.9 - UNSPECIFIED ABDOMINAL PAIN SNOMED Code(s): 48161330 (2) BRBPR (bright red blood per rectum) Narrative/Plan: [place] to be r/t constipation. Pt has had 3 BMs in the last day and denies any black stool or blood. Keep stool soft. Current Visit: Yes Status: Acute Priority: High Code(s): K62.5 - HEMORRHAGE OF ANUS AND RECTUM SNOMED Code(s): 27660734 (3) Pancreatic cancer Narrative/Plan: Pt is on neoadjuvant gemzar abraxane, cycle 1 days 1 and 8, day 15 is due today. Will plan for it later this week. Current Visit: Yes Status: Acute Priority: High Code(s): C25.9 - MALIGNANT NEOPLASM OF PANCREAS, UNSPECIFIED SNOMED Code(s): 114221645 Plan: Once pt tolerating oral intake and pain is controlled she is ok from Hem/Onc to be discharged Attests: I have seen adn examined pt, performed H&P, developed impression and plan of care. Discussed with dictator. Agree with documentation, documented as a scribe.
[2021-01-06] MEDS: HYDROCORTISONE 2.5% RECTAL CREAM 30 GM TUBE RECTAL SCH ×2 (13:02→20:35)
--- NOTE | 2021-01-06 20:25 | P.PN ---
Subjective This is a pleasant 65 years old female with multiple medical problems as above including pancreatic cancers with chronic pancreatic abdominal pain related to cancer. Possible elements of chronic pancreatitis, frequent hospitalization for abdominal pain. Presents originally because was some blood in the rectum however her hemoglobin is stable Today Hemoglobin Improved 8.7 up to 9.4. No More Episodes of Blood per Rectum since Admission, Patient Complains from Hemorrhoidal Symptoms and Asked for Hydrocortisone Which Is Ordered. Patient Wants to Start Regular Diet and She Feels Hungry, Her Abdominal Pain Is Controlled. Hemodynamically Stable. Sodium Is Stable at 1:30, Hemoglobin 9.4. Patient Remains on a Protonix IV Twice Daily. Patient Has Elevated Carcinoma 19-9 Ag, KUB No Dilated Abdomen Bowel Loops Patient currently on normal saline at 50 mL per hour and IV Protonix. Change IV Dilaudid to Ultram 100 mg 3 times a day when necessary possible discharge in 24- 48 hours Patient could not be discharged today because she had some abdominal pain with diet. Objective - Vital Signs Vital signs: Vital Signs Temp 98.7 F 01/06/21 08:00 Pulse 98 01/06/21 12:00 Resp 16 01/06/21 12:00 BP 110/75 01/06/21 12:00 Pulse Ox 100 01/06/21 12:00 Intake & Output 01/05/21 01/06/21 01/06/21 18:59 06:59 18:59 Intake Total 680 200 Output Total 0 Balance 680 200 Weight 43.2 kg Intake: Oral 680 200 Output: Urine 0 Stool 0 Other: Voiding Method Toilet Toilet # Voids 0 2 2 # Bowel Movements 0 1 - Exam -GENERAL: The patient is alert and oriented x3, not in any acute distress. Thin built HEENT: Pupils are round and equally reacting to light. EOMI. No scleral icterus. No conjunctival pallor. Normocephalic, atraumatic. No pharyngeal erythema. No thyromegaly. CARDIOVASCULAR: S1 and S2 present. No murmurs, rubs, or gallops. PULMONARY: Chest is clear to auscultation, no wheezing or crackles. ABDOMEN: Soft, nontender, nondistended, normoactive bowel sounds. No palpable organomegaly. MUSCULOSKELETAL: No joint swelling or deformity. EXTREMITIES: No cyanosis, clubbing, or pedal edema. NEUROLOGICAL: Gross neurological examination did not reveal any focal deficits. SKIN: No rashes. no petechiae. - Labs CBC & Chem 7: 01/06/21 07:38 01/06/21 07:38 Labs: Abnormal Lab Results - Last 24 Hours (Table) 01/06/21 01/06/21 Range/Units 07:38 07:38 RBC 3.53 L (3.80-5.40) m/uL Hgb 9.4 L (11.4-16.0) gm/dL Hct 29.1 L (34.0-46.0) % RDW 16.4 H (11.5-15.5) % Sodium 130 L (137-145) mmol/L Chloride 108 H (98-107) mmol/L Carbon Dioxide 18 L (22-30) mmol/L BUN <2 L (7-17) mg/dL Creatinine 0.34 L (0.52-1.04) mg/dL Glucose 113 H (74-99) mg/dL Calcium 7.5 L (8.4-10.2) mg/dL Assessment and Plan Assessment: Chronic abdominal pain, in the epigastrium related to her pancreatic disease Pancreatic cancer Possible chronic pancreatitis Hemorrhoids Plan: this is a pleasant 65 years old female with pancreatic cancers been followed closely by oncology team with chronic abdominal pain Continue with gentle hydration and IV Protonix Continue with pain medication. Start Ultram 3 times a day when necessary Advance diet was tolerated and abdominal pain controlled patient can be discharged Labs and medication were reviewed.. Continue same treatment. Continue with symptomatic treatment. Resume home medication. Monitor lytes and vitals. DVT and GI prophylaxis. Further recommendationsas per clinical course of the patie nt DVT prophylaxis: Subcutaneous heparin GI Prophylaxis: Ppi Prognosis is guarded
[2021-01-06] MEDS: traMADol 50 MG TAB PO PRN (20:29)
[2021-01-07] MEDS: 0.9% NACL WITH KCL 20 MEQ/L 1,000 ML IV SCH ×2 (00:01→06:31)
[2021-01-07 05:03] VITALS: RESP 16; TEMP 97.8
[2021-01-07] MEDS: GABAPENTIN 300 MG CAP PO SCH (08:24)
[2021-01-07] MEDS: traMADol 50 MG TAB PO PRN (08:24)
[2021-01-07] MEDS: amLODIPine 10 MG TAB PO SCH (08:24)
[2021-01-07] MEDS: DOCUSATE 100 MG CAP PO SCH (08:24)
[2021-01-07] MEDS: PANTOPRAZOLE 40 MG/10 ML VIAL IVP SCH (08:25)
[2021-01-07] MEDS: lisinopriL 20 MG TAB PO SCH (08:25)
[2021-01-07 08:31] VITALS: BP 119/72; PULSE 85
[2021-01-07 11:56] VITALS: BMI 16.7
--- NOTE | 2021-01-07 21:33 | P.DS ---
Providers Date of admission: 01/03/21 15:43 Attending physician: Yvrose Brito Consults: 01/03/21 16:22 Consult Physician Routine Consulting Provider: Anand Muller Consult Reason/Comments: malignancy Do you want consulting provider notified?: Yes Primary care physician: Sheron Lorenz Hospital Course: Diagnoses: Acute on Chronic abdominal pain, in the epigastrium related to her pancreatic disease, controlled and patient tolerates diet and wants to be discharged. Cleared by oncologist Pancreatic cancer, needs follow-up with Dr. Pacheco next week. Possible chronic pancreatitis Hemorrhoids Hospital course This is a pleasant 65 years old female with multiple medical problems as above including pancreatic cancers with chronic pancreatic abdominal pain related to cancer. Possible elements of chronic pancreatitis, frequent hospitalization for abdominal pain. Presents originally because was some blood in the rectum however her hemoglobin is stable; Hemoglobin Improved 8.7 up to 9.4. No More Episodes of Blood per Rectum since Admission, Patient Complains from Hemorrhoidal Symptoms and Asked for Hydrocortisone Which Is Ordered. Patient Wants to Start Regular Diet and She Feels Hungry, Her Abdominal Pain Is Controlled. Patient told me this morning she does not want to wait till after known and she wants to go this morning.pain control with Ultram and states that she has Ultram at home She denies any other symptoms. No chest pain or dyspnea. No urinary symptoms. No fever . Patient was cleared for discharge by oncologist Problems and management plan were discussed with the patient and he verbalized understanding and acceptance Patient was found stable and can be discharged home however he needs follow-up as an outpatient. Patient was instructed to follow up with PCP Dr. stallings within one week and patient agrees Patient was instructed to follow up with Dr. Pacheco and she agrees with the appointments made for him on 01/13 stating she will follow-up. Physical exam Gen: patient is a AAOx3, no distress CVS: S1-S2, RRR, no murmur Lungs: B/L CTA, no wheezing -Abdomen: soft, Mild epigastric tenderness, no guarding or rebound tenderness. no station, positive bowel sounds Extremity: no leg edema or induration Time spent more than 35 minutes Patient Condition at Discharge: Fair Plan - Discharge Summary Discharge Rx Participant: No New Discharge Prescriptions: New Docusate [Colace] 200 mg PO DAILY #30 cap Pantoprazole Sodium [Protonix] 40 mg PO DAILY #30 tab Hydrocortisone Pr Cream [Proctosol-Hc 2.5%] 1 applic RECTAL BID 5 Days #1 tub Continue amLODIPine BESYLATE/BENAZEPRIL [amLODIPine BESYLATE/BENAZEPRIL 10-40 MG] 1 cap PO DAILY traMADol HCL 50 mg PO Q6H PRN #120 tablet PRN Reason: Pain Lipase/Protease/Amylase [Creon Dr 12,000 Units Capsule] 1 cap PO AC-TID HYDROcodone/APAP 5-325MG [[place] 5-325] 1 tab PO TID PRN PRN Reason: Pain Famotidine 40 mg PO BID Gabapentin [Neurontin] 300 mg PO BID Potassium Chloride [Potassium Chloride ER] 10 meq PO BID Discharge Medication List amLODIPine BESYLATE/BENAZEPRIL [amLODIPine BESYLATE/BENAZEPRIL 10-40 MG] 1 cap PO DAILY 09/25/13 [History] traMADol HCL 50 mg PO Q6H PRN #120 tablet 11/12/20 [Rx] Famotidine 40 mg PO BID 11/24/20 [History] Lipase/Protease/Amylase [[place] 12,000 Units Capsule] 1 cap PO AC-TID 12/13/20 [History] HYDROcodone/APAP 5-325MG [[place] 5-325] 1 tab PO TID PRN 12/21/20 [History] Gabapentin [Neurontin] 300 mg PO BID 01/03/21 [History] Potassium Chloride [Potassium Chloride ER] 10 meq PO BID 01/03/21 [History] Docusate [Colace] 200 mg PO DAILY #30 cap 01/06/21 [Rx] Hydrocortisone Pr Cream [Proctosol-Hc 2.5%] 1 applic RECTAL BID 5 Days #1 tub 01/06/21 [Rx] Pantoprazole Sodium [Protonix] 40 mg PO DAILY #30 tab 01/06/21 [Rx] Follow up Appointment(s)/Referral(s): Anand Muller MD [STAFF PHYSICIAN] - 01/13/21 3:30 pm (In the [place] Office w/ Lesvia Valadez NP) [facility], [NON-STAFF] - 1-2 Days (AGENCY WILL CALL YOU TO SET UP APPOINTMENT DATE AND TIME.) Sheron Lorenz MD [Primary Care Provider] - 01/21/21 2:[address] [NON-STAFF] - As Needed (Contact about a possible shower chair) Patient Instructions/Handouts: Rectal Bleeding (DC), Acute Abdominal Pain (DC) Activity/Diet/Wound Care/Special Instructions: heart healthy diet activity is restricted till you see your doctor Discharge Disposition: HOME SELF-CARE
== END 2021-01-07 11:44 | disposition home health service (06) | DRG 947 ==
LOC: EC 12:27 → 3SCARD 15:43
PROVIDERS: ADMIT Hospitalist; ATTEND Hospitalist
DX: G89.3 Neoplasm related pain (acute) (chronic) (principal); E43 Unspecified severe protein-calorie malnutrition; C25.9 Malignant neoplasm of pancreas, unspecified; E87.1 Hypo-osmolality and hyponatremia; K92.1 Melena; Z68.1 Body mass index [BMI] 19.9 or less, adult; K86.1 Other chronic pancreatitis; R64 Cachexia; E86.0 Dehydration; D50.0 Iron deficiency anemia secondary to blood loss (chronic); D63.0 Anemia in neoplastic disease; E11.9 Type 2 diabetes mellitus without complications; E87.6 Hypokalemia; I10 Essential (primary) hypertension; M54.40 Lumbago with sciatica, unspecified side; R74.8 Abnormal levels of other serum enzymes; K64.9 Unspecified hemorrhoids; E78.5 Hyperlipidemia, unspecified; K59.00 Constipation, unspecified; F41.9 Anxiety disorder, unspecified; F32.9 Major depressive disorder, single episode, unspecified; R25.1 Tremor, unspecified; M81.0 Age-related osteoporosis without current pathological fracture; M19.90 Unspecified osteoarthritis, unspecified site; F17.210 Nicotine dependence, cigarettes, uncomplicated; Z79.899 Other long term (current) drug therapy; Z87.39 Personal history of other diseases of the musculoskeletal system and connective tissue; Z98.51 Tubal ligation status; Z86.69 Personal history of other diseases of the nervous system and sense organs; Z98.890 Other specified postprocedural states; Z71.3 Dietary counseling and surveillance; Z88.1 Allergy status to other antibiotic agents; Z88.8 Allergy status to other drugs, medicaments and biological substances; Z80.0 Family history of malignant neoplasm of digestive organs; Z80.1 Family history of malignant neoplasm of trachea, bronchus and lung; Z83.79 Family history of other diseases of the digestive system
CPT/HCPCS: 36415; 74018; 80048; 80053; 81003; 82272; 82306; 82607; 82728; 82746; 83540; 83550; 83605; 83690; 83735; 84443; 84484; 85025; 85610; 85730; 86301; 86850; 86900; 86901; 93005; 96361; 96374; 96375; 99285

== ENCOUNTER 2021-01-20 11:51 | Day surgery (SDC) | payer MEDICARE, OTHER ==
[2021-01-17 09:51] VITALS: BMI 16.8
[~2021-01-20 11:51] MED LIST: LACTATED RINGERS 1,000 ML IV SCH; LIDOCAINE 1% (10MG/ML) FOR IV START INTRADERMA PRN; Pre Op ABX Message 1 EACH MISC MISCELLANE ONE
[2021-01-20] MEDS ORDERED: ONDANSETRON 4 MG/2 ML VIAL ONE (12:45)
[2021-01-20] MEDS ORDERED: PHENYLEPHRINE-0.9% NACL SYG 1,000 MCG/10 ML SYRINGE ONE (13:52)
[2021-01-20] MEDS ORDERED: MIDAZOLAM 2 MG/2 ML VIAL ONE (13:52)
[2021-01-20] MEDS ORDERED: fentaNYL (PF) 50 MCG/ML 2 ML AMP ONE (13:52)
[2021-01-20] MEDS ORDERED: LIDOCAINE 1% INJ 10MG/ML (20 ML MDV) ONE (13:52)
[2021-01-20] MEDS ORDERED: PROPOFOL 10 MG/ML 20 ML VIAL IV ONE (13:52)
[2021-01-20] MEDS ORDERED: SODIUM CHLORIDE 0.9% 50 ML with ceFAZolin 1,000 MG IV ONE ×4 (14:00)
[2021-01-20] MEDS ORDERED: BUPIVACAIN-EPI 0.25%-1:200,000 30 ML VIAL SQ ONE ×2 (14:26)
[2021-01-20] MEDS ORDERED: HEPARIN SODIUM 1,000 UN/ML (10ML VL) IV ONE ×2 (14:27→14:35)
[2021-01-20] MEDS ORDERED: IOPAMIDOL-370 50ML BTL MISCELLANE ONE (14:28)
--- NOTE | 2021-01-20 14:53 | P.OP ---
Date of Procedure: 01/20/21 Preoperative Diagnosis: Need for IV access, pancreatic cancer Postoperative Diagnosis: Need for IV access, pancreatic cancer Procedure(s) Performed: Port placement Anesthesia: IVETTEA Surgeon: Esmer Velez Pathology: none sent Condition: stable Disposition: PACU Description of Procedure: Patient's taken the OR where she is prepped and draped in the usual sterile manner under a general anesthetic. Local anesthetic is instilled into the skin and subcutaneous tissues on the right anterior chest wall, then up over the clavicle in 2 finger breaths above the clavicle and posterior to the sternocleidomastoid muscle. The internal jugular vein is cannulated until there is a good back flash of dark red blood. A guidewire is then passed easily. Position is verified fluoroscopically. A skin joann is made near the guidewire and the skin incision was made on the anterior chest wall. The catheter was tunneled between the 2 openings. A vessel dilator with breakaway sheath was then placed over the guidewire in the position was verified fluoroscopically. The catheter was threaded through the breakaway sheath and the breakaway sheath was removed. A port pocket was developed on anterior chest wall. The catheter was trimmed to size and attached to the previously flushed port. The port is secured to the fascia anterior chest wall using 0 Vicryl. The skin incisions were closed with 4-0 Vicryl in a subcuticular manner. The port was accessed percutaneously and showed a good back flash of dark red blood and flushed easily with heparinized saline solution. Steri-Strips and dressings were applied. She tolerated the procedure without difficulty and was taken to recovery room in satisfactory condition. According to or personnel, all counts were correct. Plan - Discharge Summary Discharge Rx Participant: No New Discharge Prescriptions: No Action amLODIPine BESYLATE/BENAZEPRIL [amLODIPine BESYLATE/BENAZEPRIL 10-40 MG] 1 cap PO QAM traMADol HCL 50 mg PO Q6H PRN #120 tablet PRN Reason: Pain HYDROcodone/APAP 5-325MG [[place] 5-325] 1 tab PO TID PRN PRN Reason: Pain Docusate [Colace] 200 mg PO DAILY #30 cap Pantoprazole Sodium [Protonix] 40 mg PO DAILY #30 tab Famotidine 40 mg PO BID Gabapentin [Neurontin] 300 mg PO BID Potassium Chloride [Potassium Chloride ER] 10 meq PO BID Hydrocortisone Pr Cream [Proctosol-Hc 2.5%] 1 applic RECTAL BID 5 Days #1 tub Discharge Medication List amLODIPine BESYLATE/BENAZEPRIL [amLODIPine BESYLATE/BENAZEPRIL 10-40 MG] 1 cap PO QAM 09/25/13 [History] traMADol HCL 50 mg PO Q6H PRN #120 tablet 11/12/20 [Rx] Famotidine 40 mg PO BID 11/24/20 [History] HYDROcodone/APAP 5-325MG [[place] 5-325] 1 tab PO TID PRN 12/21/20 [History] Gabapentin [Neurontin] 300 mg PO BID 01/03/21 [History] Potassium Chloride [Potassium Chloride ER] 10 meq PO BID 01/03/21 [History] Docusate [Colace] 200 mg PO DAILY #30 cap 01/06/21 [Rx] Hydrocortisone Pr Cream [Proctosol-Hc 2.5%] 1 applic RECTAL BID 5 Days #1 tub 01/06/21 [Rx] Pantoprazole Sodium [Protonix] 40 mg PO DAILY #30 tab 01/06/21 [Rx] Activity/Diet/Wound Care/Special Instructions: Ice to the incision for 24-48 hours. Leave the dressings on until Wednesday. On Wednesday these may be removed then you may shower. Remove the small tapes from the skin in 1 week. Call if questions or concerns about the incision. Discharge Disposition: HOME SELF-CARE
--- NOTE | 2021-01-20 14:55 | FL ---
EXAMINATION TYPE: FL guided central line placemt HISTORY: Fluoroscopy time Impression: 1. Fluoroscopy support provided to the referring physician. 2 seconds of fluoroscopy provided.
[2021-01-20 15:03] VITALS: TEMP 97.6
[2021-01-20] MEDS: fentaNYL (PF) 50 MCG/ML 2 ML AMP IV PRN ×2 (15:35→15:44)
[2021-01-20 16:14] VITALS: BP 135/86; PULSE 78; RESP 16
== END 2021-01-20 16:31 | disposition home or self-care (01) ==
LOC: OR 11:51
PROVIDERS: ATTEND Surgery
DX: Z45.2 Encounter for adjustment and management of vascular access device (principal); C25.9 Malignant neoplasm of pancreas, unspecified
CPT/HCPCS: 36561; 77001; C1788; C1769; J2250; J0690; J2001; J3010; J1644; J2370; J2704

== ENCOUNTER 2021-01-23 00:11 | Inpatient (IN) | payer MEDICARE, OTHER ==
[2021-01-23] MEDS ORDERED: ONDANSETRON 4 MG/2 ML VIAL IVP STA (00:27)
[2021-01-23] MEDS ORDERED: HYDROmorphone 0.5 MG/0.5 ML SYRINGE IVP STA ×2 (00:27→01:48)
[2021-01-23] MEDS ORDERED: SODIUM CHLORIDE 0.9% 1,000 ML IV STA (00:27)
[2021-01-23 01:43] LABS: Appearance,Urine Clear (Clear); Bilirubin,Urine Negative (Negative); Blood,Urine Negative (Negative); Color,Urine Yellow; Glucose,Urine (UA) Negative (Negative); Ketones,Urine Negative (Negative); Leukocyte Esterase,Urine Negative (Negative); Nitrite,Urine Negative (Negative); PH, Urine 7.5 (5.0-8.0); Protein,Urine Negative (Negative); Specific Gravity,Urine 1.008 (1.001-1.035); Urobilinogen,Urine <2.0 mg/dL (<2.0)
--- NOTE | 2021-01-23 01:47 | ED ---
Abdominal Pain HPI - General Chief Complaint: Abdominal Pain Stated Complaint: Abd Pain Time Seen by Provider: 01/23/21 00:24 Source: patient, EMS, RN notes reviewed Mode of arrival: EMS Limitations: no limitations - History of Present Illness Initial Comments: This a 65-year-old female presents emergency department via EMS chief complaint abdominal pain. Patient has no pain care headache cancer. Patient is a [place], tramadol. She states the pain is just unbearable tonight. Patient states that she did have a port placed and states that she is under chemotherapy treatment now. They have discussed possible surgery. Patient denies any fevers or chills she's had some nausea and no significant change in change in bowel habits. Patient does admit to increasing symptoms in which she's had in the past. - Related Data Home Medications Medication Instructions Recorded Confirmed amLODIPine BESYLATE/BENAZEPRIL 1 cap PO QAM 09/25/13 01/20/21 [amLODIPine BESYLATE/BENAZEPRIL 10-40 MG] Famotidine 40 mg PO BID 11/24/20 01/20/21 HYDROcodone/APAP 5-325MG [[place] 1 tab PO TID PRN 12/21/20 01/20/21 5-325] Gabapentin [Neurontin] 300 mg PO BID 01/03/21 01/20/21 Potassium Chloride [Potassium 10 meq PO BID 01/03/21 01/20/21 Chloride ER] Previous Rx's Medication Instructions Recorded traMADol HCL 50 mg PO Q6H PRN #120 tablet 11/12/20 Docusate [Colace] 200 mg PO DAILY #30 cap 01/06/21 Hydrocortisone Pr Cream 1 applic RECTAL BID 5 Days #1 tub 01/06/21 [Proctosol-Hc 2.5%] Pantoprazole Sodium [Protonix] 40 mg PO DAILY #30 tab 01/06/21 Allergies Allergy/AdvReac Type Severity Reaction Status Date / Time amylase [From Zenpep] AdvReac stomach Verified 01/17/21 09:30 pain erythromycin base AdvReac Nausea Verified 01/17/21 09:30 [Erythromycin Base] gabapentin AdvReac Hallucinati Verified 01/17/21 09:30 ons lipase [From Zenpep] AdvReac stomach Verified 01/17/21 09:30 pain protease [From Zenpep] AdvReac stomach Verified 01/17/21 09:30 pain Review of Systems ROS Statement: Those systems with pertinent positive or pertinent negative responses have been documented in the HPI. ROS Other: All systems not noted in ROS Statement are negative. Past Medical History Past Medical History: Cancer, GERD/Reflux, Hyperlipidemia, Hypertension, Musculoskeletal Disorder, Osteoarthritis (OA) Additional Past Medical History / Comment(s): Osteoporosis, Lower Back Pain, Sciatica. TOLD YEARS AGO SHE HAD HEART MURMUR- NO TX, HX ACUTE BRONCHITIS(SMOKER ), August 2020 pancreatic cancer. Current head tremor. Feet, ankles and legs swollen. History of Any Multi-Drug Resistant Organisms: None Reported Past Surgical History: Orthopedic Surgery, Tubal Ligation Additional Past Surgical History / Comment(s): 2 pins in right hip-dislocated 1975. Past Anesthesia/Blood Transfusion Reactions: No Reported Reaction Past Psychological History: Anxiety, Depression Smoking Status: Current every day smoker Past Alcohol Use History: Daily Past Drug Use History: None Reported - Past Family History Mother Family Medical History: Liver Disease Father Family Medical History: Cancer Additional Family Medical History / Comment(s): Lung or liver cancer. General Exam Limitations: no limitations General appearance: alert, in no apparent distress, cachectic Head exam: Present: atraumatic, normocephalic, normal inspection Neck exam: Present: normal inspection. Absent: tenderness, meningismus, lymphadenopathy Respiratory exam: Present: normal lung sounds bilaterally. Absent: respiratory distress, wheezes, rales, rhonchi, stridor Cardiovascular Exam: Present: regular rate, normal rhythm, normal heart sounds. Absent: systolic murmur, diastolic murmur, rubs, gallop, clicks GI/Abdominal exam: Present: soft, tenderness, normal bowel sounds. Absent: distended, guarding, rebound, rigid Back exam: Absent: CVA tenderness (R), CVA tenderness (L) Neurological exam: Present: alert Course Vital Signs 01/23/21 01/23/21 00:24 01:09 Temperature 98.6 F Pulse Rate 62 89 Respiratory 18 16 Rate Blood Pressure 134/101 116/79 O2 Sat by Pulse 97 100 Oximetry Medical Decision Making - Medical Decision Making 65-year-old presented for abdominal pain. She had multiple rounds of pain meds with essentially no relief of symptoms.. Patient is found to have hypokalemia with potassium 3.0, potassium was replaced. Patient will be admitted for pain control. - Lab Data Result diagrams: 01/23/21 01:15 01/23/21 01:15 Lab Results 01/23/21 01/23/21 01/23/21 Range/Units 01:15 01:15 01:15 WBC 14.3 H (3.8-10.6) k/uL RBC 3.23 L (3.80-5.40) m/uL Hgb 8.4 L (11.4-16.0) gm/dL Hct 24.8 L (34.0-46.0) % MCV 76.9 L D (80.0-100.0) fL MCH 26.1 (25.0-35.0) pg MCHC 34.0 (31.0-37.0) g/dL RDW 19.0 H (11.5-15.5) % Plt Count 340 (150-450) k/uL MPV 8.8 Neutrophils % 81 % Lymphocytes % 12 % Monocytes % 6 % Eosinophils % 0 % Basophils % 0 % Neutrophils # 11.6 H (1.3-7.7) k/uL Lymphocytes # 1.7 (1.0-4.8) k/uL Monocytes # 0.8 (0-1.0) k/uL Eosinophils # 0.0 (0-0.7) k/uL Basophils # 0.1 (0-0.2) k/uL Anisocytosis Slight Microcytosis Slight Sodium 129 L (137-145) mmol/L Potassium 3.0 L (3.5-5.1) mmol/L Chloride 101 (98-107) mmol/L Carbon Dioxide 24 (22-30) mmol/L Anion Gap 4 mmol/L BUN 3 L (7-17) mg/dL Creatinine 0.35 L (0.52-1.04) mg/dL Est GFR (CKD-EPI)AfAm >90 (>60 ml/min/1.73 sqM) Est GFR (CKD-EPI)NonAf >90 (>60 ml/min/1.73 sqM) Glucose 130 H (74-99) mg/dL Plasma Lactic Acid Zen (0.7-2.0) mmol/L Calcium 7.4 L (8.4-10.2) mg/dL Total Bilirubin 0.9 (0.2-1.3) mg/dL AST 32 (14-36) U/L ALT 13 (4-34) U/L Alkaline Phosphatase 387 H (38-126) U/L Total Protein 5.5 L (6.3-8.2) g/dL Albumin 2.2 L (3.5-5.0) g/dL Amylase 31 (30-110) U/L Lipase 32 (23-300) U/L Urine Color Yellow Urine Appearance Clear (Clear) Urine pH 7.5 (5.0-8.0) Ur Specific [place] 1.008 (1.001-1.035) Urine Protein Negative (Negative) Urine Glucose (UA) Negative (Negative) Urine Ketones Negative (Negative) Urine Blood Negative (Negative) Urine Nitrite Negative (Negative) Urine Bilirubin Negative (Negative) Urine Urobilinogen <2.0 (<2.0) mg/dL Ur Leukocyte Esterase Negative (Negative) 01/23/21 Range/Units 01:15 WBC (3.8-10.6) k/uL RBC (3.80-5.40) m/uL Hgb (11.4-16.0) gm/dL Hct (34.0-46.0) % MCV (80.0-100.0) fL MCH (25.0-35.0) pg MCHC (31.0-37.0) g/dL RDW (11.5-15.5) % Plt Count (150-450) k/uL MPV Neutrophils % % Lymphocytes % % Monocytes % % Eosinophils % % Basophils % % Neutrophils # (1.3-7.7) k/uL Lymphocytes # (1.0-4.8) k/uL Monocytes # (0-1.0) k/uL Eosinophils # (0-0.7) k/uL Basophils # (0-0.2) k/uL Anisocytosis Microcytosis Sodium (137-145) mmol/L Potassium (3.5-5.1) mmol/L Chloride (98-107) mmol/L Carbon Dioxide (22-30) mmol/L Anion Gap mmol/L BUN (7-17) mg/dL Creatinine (0.52-1.04) mg/dL Est GFR (CKD-EPI)AfAm (>60 ml/min/1.73 sqM) Est GFR (CKD-EPI)NonAf (>60 ml/min/1.73 sqM) Glucose (74-99) mg/dL Plasma Lactic Acid Zen 1.2 (0.7-2.0) mmol/L Calcium (8.4-10.2) mg/dL Total Bilirubin (0.2-1.3) mg/dL AST (14-36) U/L ALT (4-34) U/L Alkaline Phosphatase (38-126) U/L Total Protein (6.3-8.2) g/dL Albumin (3.5-5.0) g/dL Amylase (30-110) U/L Lipase (23-300) U/L Urine Color Urine Appearance (Clear) Urine pH (5.0-8.0) Ur Specific [place] (1.001-1.035) Urine Protein (Negative) Urine Glucose (UA) (Negative) Urine Ketones (Negative) Urine Blood (Negative) Urine Nitrite (Negative) Urine Bilirubin (Negative) Urine Urobilinogen (<2.0) mg/dL Ur Leukocyte Esterase (Negative) Disposition Clinical Impression: Hypokalemia, Pancreatic cancer, Intractable abdominal pain Disposition: ADMITTED IP TO THIS [facility] Condition: Fair Referrals: Sheron Lorenz MD [Primary Care Provider] - 1-2 days
[2021-01-23 01:53] LABS: ALT 13 U/L (4-34); AST 32 U/L (14-36); African American GFR (CKD) >90 (>60 ml/min/1.73 sqM); Albumin 2.2 g/dL (3.5-5.0); Alkaline Phosphatase 387 U/L (38-126); Amylase 31 U/L (30-110); Anion Gap 4 mmol/L; Blood Urea Nitrogen 3 mg/dL (7-17); Calcium 7.4 mg/dL (8.4-10.2); Carbon Dioxide 24 mmol/L (22-30); Chloride 101 mmol/L (98-107); Glucose 130 mg/dL (74-99); Lipase 32 U/L (23-300); Non-African American GFR(CKD) >90 (>60 ml/min/1.73 sqM); Sodium 129 mmol/L (137-145); Total Bilirubin 0.9 mg/dL (0.2-1.3); Total Protein 5.5 g/dL (6.3-8.2)
[2021-01-23 02:03] LABS: Anisocytosis Slight; Basophils # (A) 0.1 k/uL (0-0.2); Basophils % (A) 0 %; Eosinophils % (A) 0 %; HCT 24.8 % (34.0-46.0); HGB 8.4 gm/dL (11.4-16.0); Lymphocytes # (A) 1.7 k/uL (1.0-4.8); Lymphocytes % (A) 12 %; MCH 26.1 pg (25.0-35.0); Mean Platelet Volume 8.8; Microcytosis Slight; Monocytes # (A) 0.8 k/uL (0-1.0); Monocytes % (A) 6 %; Neutrophils # (A) 11.6 k/uL (1.3-7.7); Neutrophils % (A) 81 %; Platelet Count 340 k/uL (150-450); RBC 3.23 m/uL (3.80-5.40); WBC 14.3 k/uL (3.8-10.6)
[2021-01-23 02:04] LABS: MCV 76.9 fL (80.0-100.0)
[2021-01-23] MEDS ORDERED: POTASSIUM BICARBONATE/CIT AC 20 MEQ TABLET.EFF PO ONE (02:12)
[2021-01-23] MEDS ORDERED: NALOXONE 0.4 MG/ML 1 ML VIAL IV PRN (02:20)
[2021-01-23] MEDS ORDERED: ONDANSETRON 4 MG/2 ML VIAL IVP PRN (02:20)
[2021-01-23] MEDS: SODIUM CHLORIDE 0.9% 1,000 ML IV SCH (04:37)
[2021-01-23] MEDS: HYDROmorphone 1 MG/ML 1 ML SYRINGE IVP PRN ×3 (05:14→12:37)
--- NOTE | 2021-01-23 14:27 | P.CONS ---
History of Present Illness - Reason for Consult Consult date: 01/23/21 Pancrreatic Cancer on Chemo - Chief Complaint Abdominal Pain - History of Present Illness Mrs. Morel is well known to our practice treatment of Pancreatic cancer, she is currently receiving chemotherapy and has had multiple hospitalizations for abdominal pain in the interim. She does not remain adherent to pain regimen as outpatient, we have discussed this. Overall these exaccerbations are short lived, quickly controlled and then she returns on her regimen. will continue to monitor and provide supportive care, adjustments made with her regarding pain management as outpatient. Review of Systems All systems: negative Constitutional: Reports as per HPI Past Medical History Past Medical History: Cancer, GERD/Reflux, Hyperlipidemia, Hypertension, Musculoskeletal Disorder, Osteoarthritis (OA) Additional Past Medical History / Comment(s): Osteoporosis, Lower Back Pain, Sciatica. TOLD YEARS AGO SHE HAD HEART MURMUR- NO TX, HX ACUTE BRONCHITIS(SMOKER), August 2020 pancreatic cancer. Current head tremor. Feet, ankles and legs swollen. History of Any Multi-Drug Resistant Organisms: None Reported Past Surgical History: Orthopedic Surgery, Tubal Ligation Additional Past Surgical History / Comment(s): 2 pins in right hip-dislocated 1975. Past Anesthesia/Blood Transfusion Reactions: No Reported Reaction Past Psychological History: Anxiety, Depression Smoking Status: Current every day smoker Past Alcohol Use History: Daily Additional Past Alcohol Use History / Comment(s): Started smoking at age 17(1971), now smokes <1 ppd. Quit drinking August 2020, had been drinking 3-4 beers daily. Past Drug Use History: None Reported Additional Drug Use History / Comment(s): Quit drinking 09/07/20 was drinking 3-4 beers a day - Past Family History Mother Family Medical History: Liver Disease Father Family Medical History: Cancer Additional Family Medical History / Comment(s): Lung or liver cancer. Medications and Allergies Home Medications Medication Instructions Recorded Confirmed Type amLODIPine BESYLATE/BENAZEPRIL 1 cap PO QAM 09/25/13 01/23/21 History [amLODIPine BESYLATE/BENAZEPRIL 10-40 MG] traMADol HCL 50 mg PO Q6H PRN #120 tablet 11/12/20 01/23/21 Rx Famotidine 40 mg PO BID 11/24/20 01/23/21 History Docusate [Colace] 200 mg PO DAILY #30 cap 01/06/21 01/23/21 Rx Pantoprazole Sodium [Protonix] 40 mg PO DAILY #30 tab 01/06/21 01/23/21 Rx Acetaminophen/Diphenhydramine 1 tab PO HS 01/23/21 01/23/21 History [Tylenol PM 500-25mg] Allergies Allergy/AdvReac Type Severity Reaction Status Date / Time amylase [From Zenpep] AdvReac stomach Verified 01/23/21 07:50 pain erythromycin base AdvReac Nausea Verified 01/23/21 07:50 [Erythromycin Base] gabapentin AdvReac Hallucinati Verified 01/23/21 07:50 ons lipase [From Zenpep] AdvReac stomach Verified 01/23/21 07:50 pain protease [From Zenpep] AdvReac stomach Verified 01/23/21 07:50 pain Physical Exam Vitals: Vital Signs Temp Pulse Pulse Resp BP BP Pulse Ox 01/23/21 13:51 98.1 F 74 20 133/80 99 01/23/21 08:00 77 16 01/23/21 07:40 97.7 F 77 16 137/84 99 01/23/21 04:15 98 F 88 18 146/90 100 01/23/21 03:55 98.4 F 78 16 135/87 98 01/23/21 01:09 89 16 116/79 100 01/23/21 00:24 98.6 F 62 18 134/101 97 Intake and Output 01/22/21 01/23/21 01/23/21 22:59 06:59 14:59 Intake Total 90 Balance 90 Intake: Oral 90 Other: # Voids 1 Weight 39.6 kg - Constitutional General appearance: cooperative, no acute distress, thin - EENT Eyes: poor dentition ENT: hard of hearing, NA/AT - Respiratory Respiratory: bilateral: CTA - Cardiovascular Rhythm: regularly irregular - Gastrointestinal General gastrointestinal: distended, tenderness - Integumentary Integumentary: pale - Neurologic Neurologic: CNII-XII intact - Musculoskeletal Musculoskeletal: generalized weakness, strength equal bilaterally - Psychiatric Psychiatric: A&O x's 3, appropriate affect Results CBC & Chem 7: 01/23/21 01:15 01/23/21 01:15 Labs: Abnormal Lab Results - Last 24 Hours (Table) 11/04/21 11/04/21 Range/Units 01:15 01:15 WBC 14.3 H (3.8-10.6) k/uL RBC 3.23 L (3.80-5.40) m/uL Hgb 8.4 L (11.4-16.0) gm/dL Hct 24.8 L (34.0-46.0) % MCV 76.9 L D (80.0-100.0) fL RDW 19.0 H (11.5-15.5) % Neutrophils # 11.6 H (1.3-7.7) k/uL Sodium 129 L (137-145) mmol/L Potassium 3.0 L (3.5-5.1) mmol/L BUN 3 L (7-17) mg/dL Creatinine 0.35 L (0.52-1.04) mg/dL Glucose 130 H (74-99) mg/dL Calcium 7.4 L (8.4-10.2) mg/dL Alkaline Phosphatase 387 H (38-126) U/L Total Protein 5.5 L (6.3-8.2) g/dL Albumin 2.2 L (3.5-5.0) g/dL Assessment and Plan (1) Intractable abdominal pain Current Visit: Yes Status: Acute Code(s): R10.9 - UNSPECIFIED ABDOMINAL PAIN SNOMED Code(s): 03633431 (2) Pancreatic cancer Current Visit: Yes Status: Acute Priority: High Code(s): C25.9 - MALIGNANT NEOPLASM OF PANCREAS, UNSPECIFIED SNOMED Code(s): 227231129 Plan: Continue with supportive care for pain and then may follow-up with us in office Attempted to add long extended release in past, patient refuses and when starts, she stops taking Monitor CBC daily as she is post chemotherapy and cytopenias expected Transfuse hemoglobin less than 7 Physician Attest: I have completed the full history and physical and agree with above dictation, dictated as a ascribe.
--- NOTE | 2021-01-23 14:57 | P.HPIM ---
History of Present Illness H&P Date: 01/23/21 This is a pleasant 65 year old female, who prestened to the with complaints of abdominal pain. Patient is a past history significant for pancreatic cancer who has chronic pancreatic abdominal pain related to the cancer. Patient recently had a port placed on January 20 and she is under treatment with chemotherapy. Per patient there has been discussion of possible surgery. Patient states that the pain is unbearable when she presented to the and it is worse when she's had in the past. At the time of my assessment patient is resting in the bed, does not appear to be in acute distress. Labs on admission showed white blood cell count 14.3, hemoglobin of 8.4. Sodium levels 139, potassium 3, albumin 3, creatinine 0.35. Glucose is 130. Patient was admitted for pain management she's receiving IV Dilaudid as well as IV fluids for hyponatremia. Vital signs include blood pressure 137/84, 77 sinus rhythm and patients afebrile and room air. She currently is denying any nausea vomiting or diarrhea. Additional past history includes reflux, hyperlipidemia, hypertension, arthritis, anxiety and depression, she is a every day smoker, history of heavy alcohol abuse. She has a consultation to oncology. REVIEW OF SYSTEMS: CONSTITUTIONAL: No fever, no malaise, no fatigue. HEENT: No recent visual problems or hearing problems. Denied any sore throat. CARDIOVASCULAR: No chest pain, orthopnea, PND, no palpitations, no syncope. PULMONARY: No shortness of breath, no cough, no hemoptysis. GASTROINTESTINAL: No diarrhea, no nausea, no vomiting, no abdominal pain. NEUROLOGICAL: No headaches, no weakness, no numbness. HEMATOLOGICAL: Denies any bleeding or petechiae. GENITOURINARY: Denies any burning micturition, frequency, or urgency. MUSCULOSKELETAL/RHEUMATOLOGICAL: Denies any joint pain, swelling, or any muscle pain. ENDOCRINE: Denies any polyuria or polydipsia. The rest of the 14-point review of systems is negative. PHYSICAL EXAMINATION: GENERAL: The patient is alert and oriented x3, not in any acute distress. Well developed, well nourished. HEENT: Pupils are round and equally reacting to light. EOMI. No scleral icterus. No conjunctival pallor. Normocephalic, atraumatic. No pharyngeal erythema. No thyromegaly. CARDIOVASCULAR: S1 and S2 present. No murmurs, rubs, or gallops. PULMONARY: Chest is clear to auscultation, no wheezing or crackles. ABDOMEN: Soft, nontender, nondistended, normoactive bowel sounds. No palpable organomegaly. MUSCULOSKELETAL: No joint swelling or deformity. EXTREMITIES: No cyanosis, clubbing, or pedal edema. NEUROLOGICAL: Gross neurological examination did not reveal any focal deficits. SKIN: No rashes. Assessment and plan -History of pancreatic cancer -Abdominal pain acute on chronic mostly due to pancreatic cancer -Hyponatremia could be due to SIADH due to acute pain, decreased oral intake, IV fluids, control pain. -Leukocytosis, reactive to acute abdominal pain -Anemia -Hypokalemia probably due to decreased oral intake Hyperglycemia -history of gastroesophageal reflux disease, continue Protonix GI prophylaxis Protonix Labs in the morning, resume home tramadol, Dilaudid for breakthrough pain, continue with IV fluids. Work towards discharge planning hopefully for tomorrow. Past Medical History Past Medical History: Cancer, GERD/Reflux, Hyperlipidemia, Hypertension, Musculoskeletal Disorder, Osteoarthritis (OA) Additional Past Medical History / Comment(s): Osteoporosis, Lower Back Pain, Sciatica. TOLD YEARS AGO SHE HAD HEART MURMUR- NO TX, HX ACUTE BRONCHITIS(SMOKER), August 2020 pancreatic cancer. Current head tremor. Feet, ankles and legs swollen. History of Any Multi-Drug Resistant Organisms: None Reported Past Surgical History: Orthopedic Surgery, Tubal Ligation Additional Past Surgical History / Comment(s): 2 pins in right hip-dislocated 1975. Past Anesthesia/Blood Transfusion Reactions: No Reported Reaction Past Psychological History: Anxiety, Depression Smoking Status: Current every day smoker Past Alcohol Use History: Daily Additional Past Alcohol Use History / Comment(s): Started smoking at age 17(1971), now smokes <1 ppd. Quit drinking August 2020, had been drinking 3-4 beers daily. Past Drug Use History: None Reported Additional Drug Use History / Comment(s): Quit drinking 09/07/20 was drinking 3-4 beers a day - Past Family History Mother Family Medical History: Liver Disease Father Family Medical History: Cancer Additional Family Medical History / Comment(s): Lung or liver cancer. Medications and Allergies Home Medications Medication Instructions Recorded Confirmed Type amLODIPine BESYLATE/BENAZEPRIL 1 cap PO QAM 09/25/13 01/23/21 History [amLODIPine BESYLATE/BENAZEPRIL 10-40 MG] traMADol HCL 50 mg PO Q6H PRN #120 tablet 11/12/20 01/23/21 Rx Famotidine 40 mg PO BID 11/24/20 01/23/21 History Docusate [Colace] 200 mg PO DAILY #30 cap 01/06/21 01/23/21 Rx Pantoprazole Sodium [Protonix] 40 mg PO DAILY #30 tab 01/06/21 01/23/21 Rx Acetaminophen/Diphenhydramine 1 tab PO HS 01/23/21 01/23/21 History [Tylenol PM 500-25mg] Allergies Allergy/AdvReac Type Severity Reaction Status Date / Time amylase [From Zenpep] AdvReac stomach Verified 01/23/21 07:50 pain erythromycin base AdvReac Nausea Verified 01/23/21 07:50 [Erythromycin Base] gabapentin AdvReac Hallucinati Verified 01/23/21 07:50 ons lipase [From Zenpep] AdvReac stomach Verified 01/23/21 07:50 pain protease [From Zenpep] AdvReac stomach Verified 01/23/21 07:50 pain Physical Exam Vitals: Vital Signs Temp Pulse Pulse Resp BP BP Pulse Ox 01/23/21 08:00 77 16 01/23/21 07:40 97.7 F 77 16 137/84 99 01/23/21 04:15 98 F 88 18 146/90 100 01/23/21 03:55 98.4 F 78 16 135/87 98 01/23/21 01:09 89 16 116/79 100 01/23/21 00:24 98.6 F 62 18 134/101 97 Intake and Output 01/22/21 01/23/21 01/23/21 22:59 06:59 14:59 Intake Total 90 Balance 90 Intake: Oral 90 Other: # Voids 1 Weight 39.6 kg Results CBC & Chem 7: 01/23/21 01:15 01/23/21 01:15 Labs: Abnormal Lab Results - Last 24 Hours (Table) 01/23/21 01/23/21 Range/Units 01:15 01:15 WBC 14.3 H (3.8-10.6) k/uL RBC 3.23 L (3.80-5.40) m/uL Hgb 8.4 L (11.4-16.0) gm/dL Hct 24.8 L (34.0-46.0) % MCV 76.9 L D (80.0-100.0) fL RDW 19.0 H (11.5-15.5) % Neutrophils # 11.6 H (1.3-7.7) k/uL Sodium 129 L (137-145) mmol/L Potassium 3.0 L (3.5-5.1) mmol/L BUN 3 L (7-17) mg/dL Creatinine 0.35 L (0.52-1.04) mg/dL Glucose 130 H (74-99) mg/dL Calcium 7.4 L (8.4-10.2) mg/dL Alkaline Phosphatase 387 H (38-126) U/L Total Protein 5.5 L (6.3-8.2) g/dL Albumin 2.2 L (3.5-5.0) g/dL Thrombosis Risk Factor Assmnt - Choose All That Apply Each Risk Factor Represents 2 Points: Age 61-74 years Thrombosis Risk Factor Assessment Total Risk Factor Score: 2 Thrombosis Risk Factor Assessment Level: Low Risk Assessment and Plan Time with Patient: Greater than 30
[2021-01-23 15:08] VITALS: BMI 13.6
[2021-01-23] MEDS: HYDROmorphone 0.5 MG/0.5 ML SYRINGE IVP PRN ×2 (16:46→21:07)
[2021-01-23] MEDS: traMADol 50 MG TAB PO PRN (20:15)
--- NOTE | 2021-01-23 22:08 | XR ---
EXAMINATION TYPE: XR abdomen acute w cxr DATE OF EXAM: 01/23/2021 COMPARISON: 01/03/2021 HISTORY: Abdominal pain TECHNIQUE: 4 views FINDINGS: Heart is normal. Lungs are clear of infiltrate. There is no heart failure. There is right c entral venous catheter with tip in the superior vena cava. There is no sign of intestinal obstruction or pneumoperitoneum. Fecal pattern is normal. There is rig ht hip nailing. There is a stent in the biliary tree. There is no evidence of abdominal mass. IMPRESSION: No active cardiopulmonary disease. Nonacute abdomen.
[2021-01-24] MEDS: SODIUM CHLORIDE 0.9% 1,000 ML IV SCH (01:15)
[2021-01-24] MEDS: HYDROmorphone 0.5 MG/0.5 ML SYRINGE IVP PRN ×2 (01:15→06:04)
[2021-01-24] MEDS: traMADol 50 MG TAB PO PRN ×2 (03:42→11:52)
[2021-01-24 07:02] LABS: African American GFR (CKD) >90 (>60 ml/min/1.73 sqM); Anion Gap 4 mmol/L; Blood Urea Nitrogen 4 mg/dL (7-17); Calcium 7.1 mg/dL (8.4-10.2); Carbon Dioxide 22 mmol/L (22-30); Chloride 105 mmol/L (98-107); Glucose 123 mg/dL (74-99); Magnesium 1.4 mg/dL (1.6-2.3); Non-African American GFR(CKD) >90 (>60 ml/min/1.73 sqM); Sodium 131 mmol/L (137-145)
[2021-01-24] MEDS ORDERED: PANTOPRAZOLE 40 MG TABLET PO SCH (07:30)
[2021-01-24 07:51] LABS: Anisocytosis Moderate; Basophils # (A) 0.1 k/uL (0-0.2); Basophils % (A) 0 %; Eosinophils # (A) 0.1 k/uL (0-0.7); Eosinophils % (A) 1 %; HCT 22.8 % (34.0-46.0); HGB 7.4 gm/dL (11.4-16.0); Lymphocytes % (A) 12 %; MCH 26.7 pg (25.0-35.0); MCHC 32.6 g/dL (31.0-37.0); Mean Platelet Volume 9.4; Microcytosis Slight; Monocytes # (A) 1.1 k/uL (0-1.0); Monocytes % (A) 6 %; Neutrophils # (A) 13.1 k/uL (1.3-7.7); Neutrophils % (A) 78 %; Platelet Count 293 k/uL (150-450); RBC 2.79 m/uL (3.80-5.40); RDW 20.2 % (11.5-15.5); WBC 16.8 k/uL (3.8-10.6)
[2021-01-24] MEDS ORDERED: DOCUSATE 100 MG CAP PO SCH (09:00)
[2021-01-24] MEDS ORDERED: Potassium Replacement Protocol 1 EACH MISC MISCELLANE PRN (09:32)
[2021-01-24] MEDS ORDERED: Magnesium Replacement Protocol 1 EACH MISC MISCELLANE PRN (09:32)
[2021-01-24] MEDS: MAGNESIUM SULFATE-D5W PMX 1 GM in DEXTROSE/WATER 1 100ML.BAG IVPB SCH ×3 (09:59→13:08)
[2021-01-24] MEDS ORDERED: lisinopriL 20 MG TAB PO SCH (11:00)
[2021-01-24] MEDS ORDERED: amLODIPine 10 MG TAB PO SCH (11:00)
[2021-01-24] MEDS: POTASSIUM CHLORIDE ER 20 MEQ TAB.ER PO SCH ×2 (11:48→13:08)
[2021-01-24 14:22] VITALS: BP 149/89; PULSE 72; RESP 18; TEMP 98.3
[2021-01-24 18:21] LABS: % Iron Saturation 28.02 (12.00-45.00)
--- NOTE | 2021-01-24 18:55 | P.PN ---
Subjective Progress Note Date: 01/24/21 Pain improved, planning on discharge today. Objective - Vital Signs Vital signs: Vital Signs Temp 98.5 F 01/24/21 08:30 Pulse 71 01/24/21 08:30 Resp 16 01/24/21 08:30 BP 158/87 01/24/21 08:30 Pulse Ox 100 01/24/21 08:30 Intake & Output 01/23/21 01/24/21 01/24/21 18:59 06:59 18:59 Intake Total 240 210 240 Output Total 2 Balance 238 210 240 Weight 39.6 kg Intake: Oral 240 210 240 Output: Stool 2 Other: # Voids 1 1 1 - Constitutional General appearance: Present: cooperative, thin - EENT Eyes: Present: EOMI ENT: Present: hard of hearing - Neck Neck: Present: normal ROM - Respiratory Respiratory: bilateral: CTA - Cardiovascular Rhythm: regularly irregular - Gastrointestinal General gastrointestinal: Present: tenderness - Integumentary Integumentary: Present: pale - Neurologic Neurologic: Present: CNII-XII intact - Musculoskeletal Musculoskeletal: Present: strength equal bilaterally - Psychiatric Psychiatric: Present: A&O x's 3 - Labs CBC & Chem 7: 01/24/21 06:22 01/24/21 15:50 Labs: Abnormal Lab Results - Last 24 Hours (Table) 01/24/21 01/24/21 Range/Units 06:22 06:22 WBC 16.8 H (3.8-10.6) k/uL RBC 2.79 L (3.80-5.40) m/uL Hgb 7.4 L (11.4-16.0) gm/dL Hct 22.8 L (34.0-46.0) % RDW 20.2 H (11.5-15.5) % Neutrophils # 13.1 H (1.3-7.7) k/uL Monocytes # 1.1 H (0-1.0) k/uL Sodium 131 L (137-145) mmol/L Potassium 3.0 L (3.5-5.1) mmol/L BUN 4 L (7-17) mg/dL Creatinine 0.35 L (0.52-1.04) mg/dL Glucose 123 H (74-99) mg/dL Calcium 7.1 L (8.4-10.2) mg/dL Magnesium 1.4 L (1.6-2.3) mg/dL Assessment and Plan (1) Intractable abdominal pain Status: Acute Code(s): R10.9 - UNSPECIFIED ABDOMINAL PAIN SNOMED Code(s): 42071644 (2) Pancreatic cancer Status: Acute Priority: High Code(s): C25.9 - MALIGNANT NEOPLASM OF PANCREAS, UNSPECIFIED SNOMED Code(s): 950769744 Plan: Continue with supportive care for pain and then may follow-up with us in office Attempted to add long extended release in past, patient refuses and when starts, she stops taking Monitor CBC daily as she is post chemotherapy and cytopenias expected Transfuse hemoglobin less than 7 Ok for discharge from oncology, will have patient follow-up in office this week for recheck CBC and pain
[2021-01-24] MEDS ORDERED: MAGNESIUM OXIDE 400 MG TAB PO SCH (21:00)
--- NOTE | 2021-01-24 22:10 | P.DS ---
Providers Date of admission: 01/24/21 11:34 Attending physician: Yvrose Brito Consults: 01/23/21 02:20 Consult Physician Urgent Consulting Provider: Anand Muller Consult Reason/Comments: Pancreatic cancer Do you want consulting provider notified?: Yes Primary care physician: Sheron Lorenz Hospital Course: Final Diagnosis -History of pancreatic cancer -Abdominal pain acute on chronic mostly due to pancreatic cancer -Hyponatremia could be due to SIADH due to acute pain, decreased oral intake, IV fluids, control pain. -Leukocytosis, reactive to acute abdominal pain -Anemia, normocytic -Hypokalemia probably due to decreased oral intake Hyperglycemia -history of gastroesophageal reflux disease, continue Protonix -Chronic nicotine abuse -History of alcohol abuse FULL CODE Discharge disposition Patient is discharged home on oral electrolyte replacement, and resumed norco tablets for pain. Patient is able to tolerate diet today, and feels well enough to go home. She will repeat labs in 2 days. Hospital Course This is a pleasant 65 year old female, who prestened to the with complaints of abdominal pain. Patient is a past history significant for pancreatic cancer who has chronic pancreatic abdominal pain related to the cancer. Patient recently had a port placed on January 20 and she is under treatment with chemotherapy. Per patient there has been discussion of possible surgery. Hazel wong states that the pain is unbearable when she presented to the and it is worse when she's had in the past. At the time of my assessment patient is resting in the bed, does not appear to be in acute distress. Labs on admission showed white blood cell count 14.3, hemoglobin of 8.4. Sodium levels 129, potassium 3, albumin 3, creatinine 0.35. Glucose is 130. Patient was admitted for pain management she's receiving IV Dilaudid as well as IV fluids for hyponatremia. Vital signs include blood pressure 137/84, 77 sinus rhythm and patients afebrile and room air. She currently is denying any nausea vomiting or diarrhea. Additional past history includes reflux, hyperlipidemia, hypertension, arthritis, anxiety and depression, she is a every day smoker, history of heavy alcohol abuse. After hydration labs improved to a sodium level of 131, potassium of 3.1, mag 1.4. Iron is 33, TIBC 116, Transferrin 83.1, and Ferritin 921.0. Patient will follow up in the office with oncology. She is currently status post chemotherapy, monitor labs closely, scripts were given for repeat in 2 days. Educated patient on smoking cessation. 01/24/2021 Patient would like to be discharged home. She denies any nausea, vomiting, or diarrhea. Abdomen is soft and nontender and she is tolerating a diet. Lungs are clear, focal neurological exam is negative. Potassium level of 3, Mg level of 1.4, we did replace per protocol and sent patient home on oral supplementation. Vital signs are stable with a BP of 149/89, heart rate of 72, Temp of 98.3, and she is 100% on room air. She was cleared today by oncology to follow up in the office this week to monitor CBC closely to follow up on pain control and patient is in agreement with this plan. Please see medication reconciliation for a list of current medication. Thank you for allowing us to participate in the care of this patient. Patient Condition at Discharge: Fair Plan - Discharge Summary Discharge Rx Participant: Yes New Discharge Prescriptions: New HYDROcodone/APAP 5-325MG [[place] 5-325] 1 tab PO Q6HR PRN 3 Days #12 tab PRN Reason: Pain Potassium Chloride ER [K-Dur 20] 20 meq PO DAILY #15 tablet Magnesium Oxide [Mag-Ox] 400 mg PO BID 15 Days #30 tab Continue amLODIPine BESYLATE/BENAZEPRIL [amLODIPine BESYLATE/BENAZEPRIL 10-40 MG] 1 cap PO QAM Docusate [Colace] 200 mg PO DAILY #30 cap Pantoprazole Sodium [Protonix] 40 mg PO DAILY #30 tab Acetaminophen/Diphenhydramine [Tylenol PM 500-25mg] 1 tab PO HS Famotidine 40 mg PO BID Discontinued traMADol HCL 50 mg PO Q6H PRN #120 tablet PRN Reason: Pain Discharge Medication List amLODIPine BESYLATE/BENAZEPRIL [amLODIPine BESYLATE/BENAZEPRIL 10-40 MG] 1 cap PO QAM 09/25/13 [History] Famotidine 40 mg PO BID 11/24/20 [History] Docusate [Colace] 200 mg PO DAILY #30 cap 01/06/21 [Rx] Pantoprazole Sodium [Protonix] 40 mg PO DAILY #30 tab 01/06/21 [Rx] Acetaminophen/Diphenhydramine [Tylenol PM 500-25mg] 1 tab PO HS 01/23/21 [History] HYDROcodone/APAP 5-325MG [[place] 5-325] 1 tab PO Q6HR PRN 3 Days #12 tab 01/24/21 [Rx] Magnesium Oxide [Mag-Ox] 400 mg PO BID 15 Days #30 tab 01/24/21 [Rx] Potassium Chloride ER [K-Dur 20] 20 meq PO DAILY #15 tablet 01/24/21 [Rx] Follow up Appointment(s)/Referral(s): [facility] [NON-STAFF] - 1-2 Days Sheron Lorenz MD [Primary Care Provider] - 01/31/21 3:30 pm [facility] [NON-STAFF] - 1-2 Days Emigdio Gomez MD [STAFF PHYSICIAN] - 01/29/21 3:30 pm (With Celsa) Ambulatory/Diagnostic Orders: Complete Blood Count w/diff [LAB.AMB] Time Frame: 1 Day, Location: None Selected Comprehensive Metabolic Panel [LAB.AMB] Time Frame: 1 Day, Location: None Selected Magnesium [LAB.AMB] Time Frame: 1 Day, Location: None Selected Discharge Disposition: HOME WITH HOME HEALTH SERVICES
[2021-01-25] MEDS ORDERED: POTASSIUM CHLORIDE ER 20 MEQ TAB.ER PO SCH (09:00)
== END 2021-01-24 17:20 | disposition home health service (06) | DRG 948 ==
LOC: EC 00:11 → 6PED 02:20 → OBSVTOIN 01-24 11:34
PROVIDERS: ADMIT Hospitalist; ATTEND Hospitalist
DX: G89.3 Neoplasm related pain (acute) (chronic) (principal); C25.9 Malignant neoplasm of pancreas, unspecified; E22.2 Syndrome of inappropriate secretion of antidiuretic hormone; Z20.822 Contact with and (suspected) exposure to COVID-19; R10.9 Unspecified abdominal pain; F10.10 Alcohol abuse, uncomplicated; F41.9 Anxiety disorder, unspecified; E78.5 Hyperlipidemia, unspecified; F32.9 Major depressive disorder, single episode, unspecified; I10 Essential (primary) hypertension; F17.210 Nicotine dependence, cigarettes, uncomplicated; K21.9 Gastro-esophageal reflux disease without esophagitis; M19.90 Unspecified osteoarthritis, unspecified site; D64.9 Anemia, unspecified; D72.829 Elevated white blood cell count, unspecified; E87.6 Hypokalemia; R73.9 Hyperglycemia, unspecified; M81.0 Age-related osteoporosis without current pathological fracture; M54.30 Sciatica, unspecified side; R25.1 Tremor, unspecified; Z79.899 Other long term (current) drug therapy; Z71.6 Tobacco abuse counseling; Z88.8 Allergy status to other drugs, medicaments and biological substances
CPT/HCPCS: 36415; 74022; 80048; 80053; 81003; 82150; 82607; 82728; 82746; 83540; 83550; 83605; 83690; 83735; 84132; 85025; 85730; 87635; 96374; 96375; 96376; 99285

== ENCOUNTER 2021-02-03 20:18 | Emergency (ER) | payer MEDICARE, OTHER ==
[2021-02-03 21:12] VITALS: RESP 18; TEMP 99.3
--- NOTE | 2021-02-03 22:03 | XR ---
EXAMINATION TYPE: XR KUB DATE OF EXAM: 02/03/2021 COMPARISON: 01/23/2021 HISTORY: Abdominal pain TECHNIQUE: 2 views upright FINDINGS: There is no sign of intestinal obstruction or pneumoperitoneum. Fecal pattern is normal. Th ere is no evidence of a mass. There are no pathologic calcifications over the kidneys. There is bilia ry stent. Lung bases are clear. There is right hip nailing noted. IMPRESSION: Nonacute abdomen. No adverse change.
[2021-02-03 22:31] LABS: ALT 17 U/L (4-34); AST 28 U/L (14-36); African American GFR (CKD) >90 (>60 ml/min/1.73 sqM); Albumin 2.3 g/dL (3.5-5.0); Alkaline Phosphatase 411 U/L (38-126); Amylase 95 U/L (30-110); Anion Gap 7 mmol/L; Blood Urea Nitrogen 5 mg/dL (7-17); Calcium 7.9 mg/dL (8.4-10.2); Carbon Dioxide 20 mmol/L (22-30); Chloride 105 mmol/L (98-107); Glucose 124 mg/dL (74-99); Lipase 66 U/L (23-300); Non-African American GFR(CKD) >90 (>60 ml/min/1.73 sqM); Potassium 2.9 mmol/L (3.5-5.1); Sodium 132 mmol/L (137-145); Total Bilirubin 0.7 mg/dL (0.2-1.3); Total Protein 5.7 g/dL (6.3-8.2)
[2021-02-03 22:38] LABS: Anisocytosis Moderate; Basophils # (A) 0.1 k/uL (0-0.2); Basophils % (A) 1 %; Eosinophils # (A) 0.2 k/uL (0-0.7); Eosinophils % (A) 1 %; HCT 26.4 % (34.0-46.0); HGB 8.5 gm/dL (11.4-16.0); Lymphocytes # (A) 2.3 k/uL (1.0-4.8); Lymphocytes % (A) 16 %; MCH 27.2 pg (25.0-35.0); MCHC 32.2 g/dL (31.0-37.0); MCV 84.6 fL (80.0-100.0); Mean Platelet Volume 7.9; Microcytosis Slight; Monocytes # (A) 0.5 k/uL (0-1.0); Monocytes % (A) 3 %; Neutrophils # (A) 11.3 k/uL (1.3-7.7); Neutrophils % (A) 76 %; RBC 3.12 m/uL (3.80-5.40); RDW 22.4 % (11.5-15.5)
[2021-02-03 22:41] LABS: Platelet Count 750 k/uL (150-450)
[2021-02-04] MEDS ORDERED: traMADol 50 MG TAB PO STA (00:43)
[2021-02-04] MEDS ORDERED: MORPHINE SULFATE 4 MG/ML SYRINGE IM STA (02:26)
[2021-02-04 02:48] LABS: Appearance,Urine Clear (Clear); Bacteria,Urine Rare /hpf; Bilirubin,Urine Negative (Negative); Blood,Urine Negative (Negative); Color,Urine Yellow; Glucose,Urine (UA) Negative (Negative); Hyaline Casts,Urine 15 /lpf (0-2); Ketones,Urine Negative (Negative); Leukocyte Esterase,Urine Negative (Negative); Mucus,Urine Occasional /hpf; Nitrite,Urine Negative (Negative); Protein,Urine 1+ (Negative); Specific Gravity,Urine 1.017 (1.001-1.035); Squamous Epithelial Cell,Urine 3 /hpf (0-4); WBC,Urine 4 /hpf (0-5)
[2021-02-04] MEDS ORDERED: POTASSIUM CHLORIDE ER 20 MEQ TAB.ER PO STA (05:03)
--- NOTE | 2021-02-04 05:22 | ED ---
Abdominal Pain HPI - General Chief Complaint: Abdominal Pain Stated Complaint: Abd Pain Time Seen by Provider: 02/03/21 23:40 Source: patient Mode of arrival: wheelchair - History of Present Illness MD Complaint: abdominal pain Onset/Timin -: days(s) Location: LLQ, RLQ Radiation: none Migration to: no migration Severity: moderate Quality: aching Consistency: constant Improves With: nothing Worsens With: nothing Associated Symptoms: nausea, vomiting - Related Data Home Medications Medication Instructions Recorded Confirmed Gabapentin [Neurontin] 300 mg PO BID 02/08/21 02/08/21 Potassium Chloride ER [K-Dur 10] 10 meq PO BID 02/08/21 02/08/21 traMADol HCL 50 mg PO Q6H PRN 02/08/21 02/08/21 Previous Rx's Medication Instructions Recorded Docusate [Colace] 200 mg PO DAILY #30 cap 01/06/21 Lactulose 20 gm PO DAILY 4 Days #120 ml 02/12/21 Magnesium Oxide [Mag-Ox] 400 mg PO BID 30 Days #60 tab 02/12/21 Pantoprazole Sodium [Protonix] 40 mg PO DAILY #30 tab 02/12/21 Allergies Allergy/AdvReac Type Severity Reaction Status Date / Time amylase [From Zenpep] AdvReac stomach Verified 02/08/21 09:48 pain erythromycin base AdvReac Nausea Verified 02/08/21 09:48 [Erythromycin Base] gabapentin AdvReac Hallucinati Verified 02/08/21 09:48 ons lipase [From Zenpep] AdvReac stomach Verified 02/08/21 09:48 pain protease [From Zenpep] AdvReac stomach Verified 02/08/21 09:48 pain Review of Systems ROS Statement: Those systems with pertinent positive or pertinent negative responses have been documented in the HPI. ROS Other: All systems not noted in ROS Statement are negative. Constitutional: Denies: fever, chills Respiratory: Denies: cough, dyspnea Cardiovascular: Denies: chest pain, palpitations, edema Gastrointestinal: Reports: abdominal pain, nausea, vomiting. Denies: diarrhea, constipation, melena, hematochezia Genitourinary: Denies: dysuria, hematuria Musculoskeletal: Denies: back pain Skin: Denies: rash Neurological: Denies: headache, weakness, numbness Past Medical History Past Medical History: Cancer, GERD/Reflux, Hyperlipidemia, Hypertension, Musculoskeletal Disorder, Osteoarthritis (OA) Additional Past Medical History / Comment(s): Osteoporosis, Lower Back Pain, Sciatica. TOLD YEARS AGO SHE HAD HEART MURMUR- NO TX, HX ACUTE BRONCHITIS(SMOKER), August 2020 pancreatic cancer. Current head tremor. Feet, ankles and legs swollen. History of Any Multi-Drug Resistant Organisms: None Reported Past Surgical History: Orthopedic Surgery, Tubal Ligation Additional Past Surgical History / Comment(s): 2 pins in right hip-dislocated 1975. Past Anesthesia/Blood Transfusion Reactions: No Reported Reaction Past Psychological History: Anxiety, Depression Smoking Status: Current every day smoker Past Alcohol Use History: Daily Past Drug Use History: None Reported - Past Family History Mother Family Medical History: Liver Disease Father Family Medical History: Cancer Additional Family Medical History / Comment(s): Lung or liver cancer. General Exam General appearance: alert, in no apparent distress Head exam: Present: atraumatic, normocephalic Eye exam: Present: normal appearance. Absent: scleral icterus, conjunctival injection ENT exam: Present: normal oropharynx Neck exam: Present: normal inspection Respiratory exam: Present: normal lung sounds bilaterally. Absent: respiratory distress, wheezes, rales, rhonchi, stridor Cardiovascular Exam: Present: regular rate, normal rhythm, normal heart sounds. Absent: systolic murmur, diastolic murmur, rubs, gallop GI/Abdominal exam: Present: soft, normal bowel sounds. Absent: distended, tenderness, guarding, rebound, rigid, mass, pulsatile mass, hernia Extremities exam: Present: normal inspection, normal capillary refill. Absent: pedal edema, calf tenderness Back exam: Present: normal inspection. Absent: CVA tenderness (R), CVA tenderness (L), vertebral tenderness Neurological exam: Present: alert Skin exam: Present: warm, dry, intact, normal color. Absent: rash Course Vital Signs 02/03/21 02/04/21 02/04/21 21:07 02:31 05:34 Temperature 99.3 F 99.3 F Pulse Rate 68 77 66 Respiratory 18 18 18 Rate Blood Pressure 103/74 123/87 133/81 O2 Sat by Pulse 96 100 95 Oximetry Medical Decision Making - Medical Decision Making Patient is 66-year-old woman with low abdominal pain, but no tenderness suggestive of surgical condition. She is feeling better following fluids and medication here. Patient will follow-up for further evaluation if there is not significant improvement. Discussed return parameters. - Lab Data Result diagrams: 02/03/21 21:52 02/03/21 21:52 Lab Results 02/03/21 02/03/21 02/03/21 Range/Units 21:47 21:52 21:52 WBC 15.0 H (3.8-10.6) k/uL RBC 3.12 L (3.80-5.40) m/uL Hgb 8.5 L (11.4-16.0) gm/dL Hct 26.4 L (34.0-46.0) % MCV 84.6 (80.0-100.0) fL MCH 27.2 (25.0-35.0) pg MCHC 32.2 (31.0-37.0) g/dL RDW 22.4 H (11.5-15.5) % Plt Count 750 H D (150-450) k/uL MPV 7.9 Neutrophils % 76 % Lymphocytes % 16 % Monocytes % 3 % Eosinophils % 1 % Basophils % 1 % Neutrophils # 11.3 H (1.3-7.7) k/uL Lymphocytes # 2.3 (1.0-4.8) k/uL Monocytes # 0.5 (0-1.0) k/uL Eosinophils # 0.2 (0-0.7) k/uL Basophils # 0.1 (0-0.2) k/uL Anisocytosis Moderate Microcytosis Slight Sodium 132 L (137-145) mmol/L Potassium 2.9 L (3.5-5.1) mmol/L Chloride 105 (98-107) mmol/L Carbon Dioxide 20 L (22-30) mmol/L Anion Gap 7 mmol/L BUN 5 L (7-17) mg/dL Creatinine 0.70 (0.52-1.04) mg/dL Est GFR (CKD-EPI)AfAm >90 (>60 ml/min/1.73 sqM) Est GFR (CKD-EPI)NonAf >90 (>60 ml/min/1.73 sqM) Glucose 124 H (74-99) mg/dL Calcium 7.9 L (8.4-10.2) mg/dL Total Bilirubin 0.7 (0.2-1.3) mg/dL AST 28 (14-36) U/L ALT 17 (4-34) U/L Alkaline Phosphatase 411 H (38-126) U/L Troponin I 0.024 (0.000-0.034) ng/mL Total Protein 5.7 L (6.3-8.2) g/dL Albumin 2.3 L (3.5-5.0) g/dL Amylase 95 (30-110) U/L Lipase 66 (23-300) U/L Urine Color Urine Appearance (Clear) Urine pH (5.0-8.0) Ur Specific [place] (1.001-1.035) Urine Protein (Negative) Urine Glucose (UA) (Negative) Urine Ketones (Negative) Urine Blood (Negative) Urine Nitrite (Negative) Urine Bilirubin (Negative) Urine Urobilinogen (<2.0) mg/dL Ur Leukocyte Esterase (Negative) Urine WBC (0-5) /hpf Ur Squamous Epith Cells (0-4) /hpf Urine Bacteria (None) /hpf Hyaline Casts (0-2) /lpf Urine Mucus (None) /hpf 02/04/21 Range/Units 01:54 WBC (3.8-10.6) k/uL RBC (3.80-5.40) m/uL Hgb (11.4-16.0) gm/dL Hct (34.0-46.0) % MCV (80.0-100.0) fL MCH (25.0-35.0) pg MCHC (31.0-37.0) g/dL RDW (11.5-15.5) % Plt Count (150-450) k/uL MPV Neutrophils % % Lymphocytes % % Monocytes % % Eosinophils % % Basophils % % Neutrophils # (1.3-7.7) k/uL Lymphocytes # (1.0-4.8) k/uL Monocytes # (0-1.0) k/uL Eosinophils # (0-0.7) k/uL Basophils # (0-0.2) k/uL Anisocytosis Microcytosis Sodium (137-145) mmol/L Potassium (3.5-5.1) mmol/L Chloride (98-107) mmol/L Carbon Dioxide (22-30) mmol/L Anion Gap mmol/L BUN (7-17) mg/dL Creatinine (0.52-1.04) mg/dL Est GFR (CKD-EPI)AfAm (>60 ml/min/1.73 sqM) Est GFR (CKD-EPI)NonAf (>60 ml/min/1.73 sqM) Glucose (74-99) mg/dL Calcium (8.4-10.2) mg/dL Total Bilirubin (0.2-1.3) mg/dL AST (14-36) U/L ALT (4-34) U/L Alkaline Phosphatase (38-126) U/L Troponin I (0.000-0.034) ng/mL Total Protein (6.3-8.2) g/dL Albumin (3.5-5.0) g/dL Amylase (30-110) U/L Lipase (23-300) U/L Urine Color Yellow Urine Appearance Clear (Clear) Urine pH 6.0 (5.0-8.0) Ur Specific [place] 1.017 (1.001-1.035) Urine Protein 1+ H (Negative) Urine Glucose (UA) Negative (Negative) Urine Ketones Negative (Negative) Urine Blood Negative (Negative) Urine Nitrite Negative (Negative) Urine Bilirubin Negative (Negative) Urine Urobilinogen 3.0 (<2.0) mg/dL Ur Leukocyte Esterase Negative (Negative) Urine WBC 4 (0-5) /hpf Ur Squamous Epith Cells 3 (0-4) /hpf Urine Bacteria Rare H (None) /hpf Hyaline Casts 15 H (0-2) /lpf Urine Mucus Occasional H (None) /hpf Disposition Clinical Impression: Hypokalemia Disposition: HOME SELF-CARE Condition: Good Instructions (If sedation given, give patient instructions): Hypokalemia (ED) Is patient prescribed a controlled substance at d/c from ED?: No Referrals: Sheron Lorenz MD [Primary Care Provider] - 1-2 days
[2021-02-04 05:36] VITALS: BP 133/81; PULSE 66
== END 2021-02-04 05:59 | disposition home or self-care (01) ==
LOC: EC 20:18
DX: E87.6 Hypokalemia (principal); R10.31 Right lower quadrant pain; R10.32 Left lower quadrant pain; I10 Essential (primary) hypertension; F17.200 Nicotine dependence, unspecified, uncomplicated; Z88.1 Allergy status to other antibiotic agents; Z88.8 Allergy status to other drugs, medicaments and biological substances
CPT/HCPCS: 36415; 80053; 82150; 83690; 84484; 85025; 81001; 74018; 99284; 96372; J2270

== ENCOUNTER 2021-02-08 08:08 | Inpatient (IN) | payer MEDICARE, OTHER ==
--- NOTE | 2021-02-08 08:19 | ED ---
General Adult HPI - General Stated complaint: abd pain Time Seen by Provider: 02/08/21 08:17 Source: RN notes reviewed, old records reviewed - History of Present Illness Initial comments: Patient is a 65-year-old female with past medical history remarkable for chronic pancreatitis, pancreatic cancer currently undergoing chemoradiation having last received chemo 3 days ago and having received a monthly basis for the last 2 months presents emergency Department complaining of a one-day history of epigastric and left-sided abdominal pain. She states that this is her typical pancreatitis pain, and this started yesterday. She attempted to take her home medications without much improvement. Denies any fevers, chills, sick contacts, cough. Denies any chest pain, urinary complaints. His no other acute complaints at this time other than abdominal discomfort. Denies constipation. Denies emesis or nausea. She has no other acute complaints at this time. Patient presents over concern for her acute onset of abdominal pain starting yesterday. She describes it as a sharp sensation that does not radiate. It is more or less constant. No known provocative or palliative factors.She has no urinary complaints at this time and denies any vaginal discharge. - Related Data Home Medications Medication Instructions Recorded Confirmed amLODIPine BESYLATE/BENAZEPRIL 1 cap PO DAILY 09/25/13 02/08/21 [amLODIPine BESYLATE/BENAZEPRIL 10-40 MG] Gabapentin [Neurontin] 300 mg PO BID 02/08/21 02/08/21 Potassium Chloride ER [K-Dur 10] 10 meq PO BID 02/08/21 02/08/21 traMADol HCL 50 mg PO Q6H PRN 02/08/21 02/08/21 Previous Rx's Medication Instructions Recorded Docusate [Colace] 200 mg PO DAILY #30 cap 01/06/21 Pantoprazole Sodium [Protonix] 40 mg PO DAILY #30 tab 01/06/21 HYDROcodone/APAP 5-325MG [[place] 1 tab PO Q6HR PRN 3 Days #12 tab 01/24/21 5-325] Magnesium Oxide [Mag-Ox] 400 mg PO BID 15 Days #30 tab 01/24/21 Allergies Allergy/AdvReac Type Severity Reaction Status Date / Time amylase [From Zenpep] AdvReac stomach Verified 02/08/21 09:48 pain erythromycin base AdvReac Nausea Verified 02/08/21 09:48 [Erythromycin Base] gabapentin AdvReac Hallucinati Verified 02/08/21 09:48 ons lipase [From Zenpep] AdvReac stomach Verified 02/08/21 09:48 pain protease [From Zenpep] AdvReac stomach Verified 02/08/21 09:48 pain Review of Systems ROS Statement: Those systems with pertinent positive or pertinent negative responses have been documented in the HPI. Review of Systems: CONST: Denies fever EYES: Denies blurry vision ENT: Denies nasal congestion C/V: Denies Chest pain RESP: Denies shortness of breath GI: Endorses abdominal pain : Denies dysuria SKIN: Denies rash. MSK: Denies joint pain. NEURO: Denies headache ROS Other: All systems not noted in ROS Statement are negative. Past Medical History Past Medical History: Cancer, GERD/Reflux, Hyperlipidemia, Hypertension, Musculoskeletal Disorder, Osteoarthritis (OA) Additional Past Medical History / Comment(s): Osteoporosis, Lower Back Pain, Sciatica. TOLD YEARS AGO SHE HAD HEART MURMUR- NO TX, HX ACUTE BRONCHITIS(SMOKER), August 2020 pancreatic cancer. Current head tremor. Feet, ankles and legs swollen. History of Any Multi-Drug Resistant Organisms: None Reported Past Surgical History: Orthopedic Surgery, Tubal Ligation Additional Past Surgical History / Comment(s): 2 pins in right hip-dislocated 1975. Past Anesthesia/Blood Transfusion Reactions: No Reported Reaction Smoking Status: Current every day smoker - Past Family History Mother Family Medical History: Liver Disease Father Family Medical History: Cancer Additional Family Medical History / Comment(s): Lung or liver cancer. General Exam - General Exam Comments Initial Comments: General: Appears in moderate distress secondary to abdominal discomfort. Ap pears cachectic. HEAD: Normal with no signs of head trauma. EYES: PERRLA, EOMI, conjunctiva normal, no discharge. ENT: Hearing grossly intact, normal oropharynx. Moist mucous membranes. RESPIRATORY: Clear breath sounds bilaterally. No wheezes, rales, or rhonchi. C/V: I be tachycardic with a regular rhythm. S1 and S2 auscultated. Peripheral pulses are 2+ intact throughout. No peripheral edema. Patient is an intact chemo port in the right chest. It appears uncomplicated. No skin changes or signs of infection. ABD: Abdomen soft, nondistended. Patient is tender to palpation in the e pigastric and left upper quadrant. No CVA tenderness to percussion. No rebound tenderness. No guarding. No peritoneal signs. EXT: Normal range of motion, no obvious deformity SKIN: No rashes or lesions observed on exposed skin. NEURO: Alert and oriented x 4. Cranial nerves II-XII intact. No focal sensory or strength deficits. Course Vital Signs 02/08/21 02/08/21 08:14 12:14 Temperature 97.9 F Pulse Rate 105 H 109 H Respiratory 19 18 Rate Blood Pressure 155/118 115/83 O2 Sat by Pulse 100 98 Oximetry Medical Decision Making - Medical Decision Making Based on the patient's presentation and physical exam, I believe she is likely experiencing acute on chronic abdominal pain secondary to her chronic pancreatitis. She has multiple visits for this. Const locating this includes starting chemotherapy for her pancreatic cancer. She otherwise is asymptomatic other than the pain. We will obtain abdominal laboratory studies, screening EKG at this time. An upright chest x-ray will also be obtained. Patient will be symptomatically treated with IV analgesia, Zofran, 1 L fluid bolus. She was in agreement with this plan. She'll be connected to continuous cardiac monitoring while she is here in the department. She has no signs or symptoms of infection at this time. Patient's EKG showed no signs of acute ischemia was unchanged from prior EKGs.Patient's chest x-ray reveals no acute cardiopulmonary process. Laboratory studies are remarkable for a leukocytosis of 16.9 which has been chronic since starting chemotherapy based on prior labs, as well as a normocytic anemia with a hemoglobin of 9.2. Patient has hypokalemic at 3.1 which was replenished. She is mildly hyponatremic 131. She is mildly hypocalcemic to 7.6. Urinalysis is unremarkable. The remainder of her labs are unremarkable. Patient is not neutropenic. On reevaluation come patient's continuing to have pain, that she states is typical of her pancreatitis pain. I will re-dose her famotidine as well as morphine and reevaluated. She was in agreement this plan. Reevaluation, she is continuing to have pain. I offered her admission and observation for intractable abdominal pain and she was in agreement this plan. I spoke with the admitting physician Dr. Brito who accepted the patient. Patient was therefore admitted in stable condition observation for intractable abdominal pain. History of chronic pancreatitis with pancreatic cancer on chemotherapy currently. - Lab Data Result diagrams: 02/08/21 10:08 02/08/21 10:08 Lab Results 02/08/21 02/08/21 02/08/21 Range/Units 10:08 10:08 10:08 WBC 16.9 H (3.8-10.6) k/uL RBC 3.33 L (3.80-5.40) m/uL Hgb 9.2 L (11.4-16.0) gm/dL Hct 28.9 L (34.0-46.0) % MCV 86.8 (80.0-100.0) fL MCH 27.6 (25.0-35.0) pg MCHC 31.8 (31.0-37.0) g/dL RDW 20.8 H (11.5-15.5) % Plt Count 518 H (150-450) k/uL MPV 8.1 Neutrophils % 90 % Lymphocytes % 7 % Monocytes % 2 % Eosinophils % 0 % Basophils % 0 % Neutrophils # 15.3 H (1.3-7.7) k/uL Lymphocytes # 1.1 (1.0-4.8) k/uL Monocytes # 0.4 (0-1.0) k/uL Eosinophils # 0.0 (0-0.7) k/uL Basophils # 0.0 (0-0.2) k/uL Anisocytosis Moderate Microcytosis Slight Sodium 131 L (137-145) mmol/L Potassium 3.1 L (3.5-5.1) mmol/L Chloride 105 (98-107) mmol/L Carbon Dioxide 19 L (22-30) mmol/L Anion Gap 7 mmol/L BUN 5 L (7-17) mg/dL Creatinine 0.54 (0.52-1.04) mg/dL Est GFR (CKD-EPI)AfAm >90 (>60 ml/min/1.73 sqM) Est GFR (CKD-EPI)NonAf >90 (>60 ml/min/1.73 sqM) Glucose 153 H (74-99) mg/dL Calcium 7.6 L (8.4-10.2) mg/dL Total Bilirubin 0.8 (0.2-1.3) mg/dL AST 19 (14-36) U/L ALT 16 (4-34) U/L Alkaline Phosphatase 401 H (38-126) U/L Total Protein 5.3 L (6.3-8.2) g/dL Albumin 2.1 L (3.5-5.0) g/dL Amylase 43 (30-110) U/L Lipase 75 (23-300) U/L Urine Color Yellow Urine Appearance Cloudy H (Clear) Urine pH 6.0 (5.0-8.0) Ur Specific [place] 1.016 (1.001-1.035) Urine Protein 1+ H (Negative) Urine Glucose (UA) 1+ H (Negative) Urine Ketones Negative (Negative) Urine Blood Negative (Negative) Urine Nitrite Negative (Negative) Urine Bilirubin Negative (Negative) Urine Urobilinogen <2.0 (<2.0) mg/dL Ur Leukocyte Esterase Negative (Negative) Urine RBC 1 (0-5) /hpf Urine WBC 5 (0-5) /hpf Ur Squamous Epith Cells 7 H (0-4) /hpf Amorphous Sediment Moderate H (None) /hpf Urine Bacteria Rare H (None) /hpf Hyaline Casts 28 H (0-2) /lpf Urine Mucus Few H (None) /hpf - EKG Data -: EKG Interpreted by Me EKG Comments: 12-lead Electrocardiogram Interpretation Note EKG was reviewed and interpreted by myself. 12-lead ECG performed at 0829 is interpreted by me as revealing normal sinus rhythm at a rate of 98 beats per minute. [place] is normal. VA interval is 138 ms, QRS duration is 72 ms, QTc is 449 ms.. There were no ST or T wave abnormalities to suggest myocardial ischemia or injury. R wave progression across the precordium was satisfactory. By my interpretation this EKG is non-diagnostic for acute ischemia. EKG is u nchanged when compared to prior EKGs. Disposition Clinical Impression: Chronic pancreatitis, Intractable abdominal pain Disposition: ADMITTED IP TO THIS HOSP Condition: Stable
[2021-02-08] MEDS ORDERED: MORPHINE SULFATE 4 MG/ML SYRINGE IV STA (08:28)
[2021-02-08] MEDS ORDERED: SODIUM CHLORIDE 0.9% 1,000 ML IV STA (08:28)
[2021-02-08] MEDS ORDERED: ONDANSETRON 4 MG/2 ML VIAL IVP STA (08:28)
--- NOTE | 2021-02-08 09:45 | XR ---
EXAMINATION TYPE: XR chest 1V portable DATE OF EXAM: 02/08/2021 Comparison: 11/27/2020 Clinical History: 65-year-old female headache, sore throat, cough, shortness of breath. Findings: Heart normal size. Aorta and pulmonary vasculature within normal limits. Right anterior chest wall in jection port with catheter tip at the mid to lower SVC. No consolidation or pleural effusion. Hyperin flation. No air seen below the hemidiaphragms. Impression: COPD. No acute process seen. No free air seen below the hemidiaphragms.
[2021-02-08 10:26] LABS: Anisocytosis Moderate; Basophils % (A) 0 %; Eosinophils % (A) 0 %; HCT 28.9 % (34.0-46.0); HGB 9.2 gm/dL (11.4-16.0); Lymphocytes # (A) 1.1 k/uL (1.0-4.8); Lymphocytes % (A) 7 %; MCH 27.6 pg (25.0-35.0); MCHC 31.8 g/dL (31.0-37.0); MCV 86.8 fL (80.0-100.0); Mean Platelet Volume 8.1; Microcytosis Slight; Monocytes # (A) 0.4 k/uL (0-1.0); Monocytes % (A) 2 %; Neutrophils # (A) 15.3 k/uL (1.3-7.7); Neutrophils % (A) 90 %; Platelet Count 518 k/uL (150-450); RBC 3.33 m/uL (3.80-5.40); RDW 20.8 % (11.5-15.5); WBC 16.9 k/uL (3.8-10.6)
[2021-02-08 10:40] LABS: Amorphous Sediment,Urine Moderate /hpf; Appearance,Urine Cloudy (Clear); Bacteria,Urine Rare /hpf; Bilirubin,Urine Negative (Negative); Blood,Urine Negative (Negative); Color,Urine Yellow; Glucose,Urine (UA) 1+ (Negative); Hyaline Casts,Urine 28 /lpf (0-2); Ketones,Urine Negative (Negative); Leukocyte Esterase,Urine Negative (Negative); Mucus,Urine Few /hpf; Nitrite,Urine Negative (Negative); Protein,Urine 1+ (Negative); RBC,Urine 1 /hpf (0-5); Specific Gravity,Urine 1.016 (1.001-1.035); Squamous Epithelial Cell,Urine 7 /hpf (0-4); Urobilinogen,Urine <2.0 mg/dL (<2.0); WBC,Urine 5 /hpf (0-5)
[2021-02-08 10:46] LABS: ALT 16 U/L (4-34); AST 19 U/L (14-36); African American GFR (CKD) >90 (>60 ml/min/1.73 sqM); Albumin 2.1 g/dL (3.5-5.0); Alkaline Phosphatase 401 U/L (38-126); Amylase 43 U/L (30-110); Anion Gap 7 mmol/L; Blood Urea Nitrogen 5 mg/dL (7-17); Calcium 7.6 mg/dL (8.4-10.2); Carbon Dioxide 19 mmol/L (22-30); Chloride 105 mmol/L (98-107); Glucose 153 mg/dL (74-99); Lipase 75 U/L (23-300); Non-African American GFR(CKD) >90 (>60 ml/min/1.73 sqM); Potassium 3.1 mmol/L (3.5-5.1); Sodium 131 mmol/L (137-145); Total Bilirubin 0.8 mg/dL (0.2-1.3); Total Protein 5.3 g/dL (6.3-8.2)
[2021-02-08] MEDS ORDERED: MORPHINE SULFATE 4 MG/ML SYRINGE IVP STA (10:51)
[2021-02-08] MEDS ORDERED: FAMOTIDINE 20 MG/2 ML VIAL IV STA (11:59)
[2021-02-08] MEDS ORDERED: NALOXONE 0.4 MG/ML 1 ML VIAL IV PRN (12:43)
[2021-02-08] MEDS ORDERED: POTASSIUM CHLORIDE ER 20 MEQ TAB.ER PO STA (12:45)
[2021-02-08] MEDS ORDERED: ALPRAZolam 0.25 MG TAB PO PRN (15:27)
[2021-02-08] MEDS: HYDROmorphone 0.5 MG/0.5 ML SYRINGE IVP PRN ×2 (15:43→20:00)
--- NOTE | 2021-02-08 16:50 | HP ---
HISTORY AND PHYSICAL DATE OF SERVICE: 02/08/2021 CHIEF COMPLAINT: Abdominal pain. HISTORY OF PRESENT ILLNESS: This 65-year-old woman with a past medical history of multiple medical problems, including pancreatic cancer, also has a history of chronic pancreatitis. The patient has started on chemotherapy. Patient had an episode of GI bleed, possibly multifactorial, secondary to malignancy as well as blood loss anemia recently. Currently the patient, as mentioned, has received some chemotherapy. Patient was complaining of severe pain in the anterior part of the abdomen, especially on the left side, sharp in character. Patient was unable to keep anything down. The patient came to [facility] and was admitted for further evaluation and treatment. There is no history of any fever, rigor or chills. No history of headache, loss of consciousness or seizures at this time. Initial evaluation showed elevated WBC, sodium 131, potassium 3.1. Creatinine was normal. Patient was dehydrated. UA was reviewed. COVID-19 was negative. Alkaline phosphatase elevated. There is no history of any fever, rigor or chills at this time. The patient has severe protein-calorie malnutrition. The patient is followed by Dr. Sheron Lorenz and Oncology in the outpatient setting. PAST MEDICAL HISTORY: History of GERD, hypertension, hyperlipidemia, history of DJD, history of osteoporosis. History of anxiety, depression. History of nicotine dependence. HOME MEDICATIONS: Ultram, benazepril, K-Dur, Protonix, magnesium oxide, [place], Neurontin, Colace. Doses are reviewed. ALLERGIES: AMYLASE, ERYTHROMYCIN, GABAPENTIN, LIPASE, PROTEASE. FAMILY HISTORY: History of liver disease in the family and lung or liver cancer. SOCIAL HISTORY: History of smoking and ongoing history of THC. REVIEW OF SYSTEMS: ENT: Diminished hearing. Diminished vision. CARDIOVASCULAR SYSTEM: No angina, palpitations. RESPIRATORY SYSTEM: As mentioned earlier. GI: As mentioned earlier. : No dysuria. NERVOUS SYSTEM: No numbness, weakness. ALLERGY/IMMUNOLOGY: No asthma or hay fever. MUSCULOSKELETAL: As mentioned earlier. HEMATOLOGY/ONCOLOGY: As mentioned earlier. ENDOCRINE: As mentioned earlier. CONSTITUTIONAL: As mentioned earlier. DERMATOLOGY: Negative. RHEUMATOLOGY: Negative. PSYCHIATRY: As mentioned earlier. PHYSICAL EXAMINATION: Patient alert and oriented x3. Pulse is 109, blood pressure 115/83, respiration 18, temperature 97.9, pulse ox 98% on room air. HEENT: Conjunctivae normal. Oral mucosa moist. NECK: No jugular venous distention. No carotid bruit. No lymph node enlargement. CARDIOVASCULAR: S1, S2 muffled. RESPIRATION: Breath sounds diminished at the bases. A few scattered rhonchi. ABDOMEN: Soft, scaphoid. Mild diffuse tenderness, especially in the upper quadrant. No guarding. No rigidity. No mass palpable. LEGS: No edema. No swelling. NERVOUS SYSTEM: Higher functions as mentioned earlier. Moves all 4 limbs. No focal motor or sensory deficit. LYMPHATICS: No lymph node palpable in neck, axillae or groin. SKIN: No ulcer, rash, bleeding. JOINTS: No active deforming arthropathy. LABS: WBC 16.2, hemoglobin 9.2, sodium 131, potassium 3.1. Other labs are noted. ASSESSMENT: 1. Acute abdominal pain, possibly secondary to acute on chronic pancreatitis or pancreatic malignancy. 2. Pancreatic cancer, on chemotherapy. 3. History of gastrointestinal bleeding, multifactorial. 4. Increased white count. 5. Anemia of chronic disease and chronic gastrointestinal bleed. 6. Elevated platelet count. 7. Hyponatremia. 8. Hypokalemia. 9. Hypocalcemia. 10.Hypoalbuminemia with severe protein-calorie malnutrition. 11.History of gastroesophageal reflux disease. 12.Hypertension. 13.Hyperlipidemia. 14.History of degenerative joint disease. 15.History of osteoporosis. 16.Low back pain. 17.Sciatica. 18.History of chronic bronchitis. 19.History of anxiety, depression. 20.Continued ongoing nicotine dependence. 21.History of THC. 22.Remote history of ETOH. 23.FULL CODE. RECOMMENDATIONS AND DISCUSSION: In this 65-year-old woman who presented with multiple complex medical issues, we will monitor the patient closely, continue the current medications, symptomatic treatment. Otherwise, keep the patient n.p.o. except ice chips at this time. Hematology/Oncology has been consulted. Otherwise, IV pain medications, Protonix IV. Repeat labs. Prognosis guarded because of multiple complex medical issues. Further recommendations to follow. A copy of this dictation is being forwarded to Dr. Sheron Lorenz, who is the primary physician. MMODL / IJN: [id number] /
[2021-02-08] MEDS: HYDROcodone/APAP 5-325MG 1 EACH TAB PO PRN (17:51)
[2021-02-08] MEDS: SIMETHICONE 40 MG/0.6 ML DROPS 2,000 MG/30 ML BOTTLE PO SCH ×2 (17:53→21:52)
[2021-02-08] MEDS: SODIUM CHLORIDE 0.9% 1,000 ML IV SCH (17:53)
[2021-02-08] MEDS: GABAPENTIN 300 MG CAP PO SCH (20:41)
[2021-02-08] MEDS: POTASSIUM CHLORIDE ER 10 MEQ TAB.ER.PRT PO SCH (20:41)
[2021-02-08] MEDS: MAGNESIUM OXIDE 400 MG TAB PO SCH (20:41)
[2021-02-08] MEDS: HEPARIN SODIUM,PORCINE/PF 5,000 UNIT/0.5 ML SYRINGE SQ SCH ×2 (20:41→20:45)
[2021-02-08] MEDS ORDERED: TEMAZEPAM 15 MG CAP PO PRN (21:00)
[2021-02-09] MEDS: HYDROmorphone 0.5 MG/0.5 ML SYRINGE IVP PRN ×3 (04:08→19:26)
[2021-02-09] MEDS: SODIUM CHLORIDE 0.9% 1,000 ML IV SCH ×2 (05:33→15:58)
[2021-02-09] MEDS: HEPARIN SODIUM,PORCINE/PF 5,000 UNIT/0.5 ML SYRINGE SQ SCH ×2 (07:44→20:53)
[2021-02-09 08:41] LABS: ALT 14 U/L (4-34); AST 22 U/L (14-36); African American GFR (CKD) >90 (>60 ml/min/1.73 sqM); Albumin/Globulin Ratio 0.6; Alkaline Phosphatase 358 U/L (38-126); Amylase 55 U/L (30-110); Anion Gap 6 mmol/L; Blood Urea Nitrogen 6 mg/dL (7-17); Calcium 7.4 mg/dL (8.4-10.2); Carbon Dioxide 18 mmol/L (22-30); Chloride 111 mmol/L (98-107); Globulin 3.2 g/dL; Glucose 95 mg/dL (74-99); Lipase 105 U/L (23-300); Non-African American GFR(CKD) >90 (>60 ml/min/1.73 sqM); Potassium 4.4 mmol/L (3.5-5.1); Sodium 135 mmol/L (137-145); Total Protein 5.2 g/dL (6.3-8.2)
[2021-02-09] MEDS ORDERED: PANTOPRAZOLE 40 MG TABLET PO SCH (09:00)
[2021-02-09 09:49] LABS: Anisocytosis Moderate; HCT 28.4 % (34.0-46.0); HGB 9.1 gm/dL (11.4-16.0); MCHC 31.9 g/dL (31.0-37.0); MCV 87.9 fL (80.0-100.0); Mean Platelet Volume 9.3; Platelet Count 410 k/uL (150-450); RBC 3.23 m/uL (3.80-5.40)
[2021-02-09 09:53] LABS: WBC 26.1 k/uL (3.8-10.6)
[2021-02-09] MEDS: POTASSIUM CHLORIDE ER 10 MEQ TAB.ER.PRT PO SCH ×2 (09:56→20:55)
[2021-02-09] MEDS: GABAPENTIN 300 MG CAP PO SCH ×2 (09:56→20:55)
[2021-02-09] MEDS: lisinopriL 20 MG TAB PO SCH (09:57)
[2021-02-09] MEDS: DOCUSATE 100 MG CAP PO SCH (09:57)
[2021-02-09] MEDS: amLODIPine 10 MG TAB PO SCH (09:57)
[2021-02-09] MEDS: MAGNESIUM OXIDE 400 MG TAB PO SCH ×2 (09:57→20:55)
[2021-02-09] MEDS: SIMETHICONE 40 MG/0.6 ML DROPS 2,000 MG/30 ML BOTTLE PO SCH ×4 (09:58→23:22)
[2021-02-09 10:01] LABS: Lymphocytes # (M) 0.78 k/uL (1.0-4.8); Monocytes # (M) 0.52 k/uL (0-1.0); Neutrophils % (M) 95 %; Nucleated Red Blood Cells 0 /100 WBC (0-0); Total Cells Counted 100
[2021-02-09 10:05] LABS: Poikilocytosis (M) Present; Target Cells Present
[2021-02-09 10:07] LABS: Hypochromasia (M) Present
--- NOTE | 2021-02-09 14:50 | XR ---
EXAMINATION TYPE: XR chest 1V portable DATE OF EXAM: 02/09/2021 COMPARISON: Yesterday HISTORY: Cough and sore throat TECHNIQUE: Single view FINDINGS: There is some mild atelectasis left lateral lung base. Heart size is normal. There is right central venous catheter with tip in the superior vena cava. There is no heart failure. IMPRESSION: There is some new mild linear infiltrate and atelectasis left lung base compared to yeste rday.
[2021-02-09] MEDS ORDERED: IPRATROPIUM-ALBUTEROL 3 ML NEB INHALATION PRN (15:12)
[2021-02-09 15:23] LABS: ABG Base Excess -6.4 mmol/L; ABG HCO3 17 mmol/L (21-25); ABG PCO2 21 mmHg (35-45); ABG PH 7.51 (7.35-7.45); ABG PO2 137 mmHg (83-108); ABG TCO2 17 mmol/L (19-24); Allen Test Performed? Yes
[2021-02-09] MEDS: IPRATROPIUM-ALBUTEROL 3 ML NEB INHALATION SCH (15:35)
[2021-02-09] MEDS: HYDROcodone/APAP 5-325MG 1 EACH TAB PO PRN (15:57)
--- NOTE | 2021-02-09 16:30 | PN ---
PROGRESS NOTE DATE OF SERVICE: 02/09/2021 This 65-year-old woman being followed by Dr. Sheron Lorenz in the outpatient setting is admitted with abdominal pain. The patient also having hypoxia today. A chest x-ray was done today. The patient's sats are ending at 90s and supplemental oxygen. Chest x- ray showed some minimal linear infiltrate and atelectasis of the left lung base. No chest pain. No palpitations. No fever. Past medical history reviewed. REVIEW OF SYSTEMS: Cardiovascular: No angina or palpitations. Respiration as mentioned earlier. GI as mentioned earlier. : No dysuria. Nervous system: No numbness or weakness. CURRENT MEDICATIONS: Reviewed and include: Gum [place], Xanax, Norvasc, Colace, Neurontin, Dilaudid, Zestril, magnesium oxide and Narcan. Doses reviewed. PHYSICAL EXAMINATION: The patient is alert and oriented times three. Pulse 57, blood pressure 129/93, respiration 18, temperature 98.2, pulse ox 93% on room air. HEENT: Conjunctivae normal. Neck: No JVD. Cardiovascular: S1, S2. Respiration: Breath sounds diminished in the bases. A few scattered rhonchi and crackles. Abdomen: Soft, nontender. Legs: No edema. No swelling. Nervous system: No focal deficits. LABORATORY DATA: WBC 26.1, hemoglobin 9.1, sodium 130, potassium 4.4. Alkaline phosphatase is 358. ASSESSMENT: 1. Acute abdominal pain, possibly secondary to acute on chronic pancreatitis and pancreatic malignancy. 2. Possible left lower lobe infiltrate and pneumonia. 3. Hypoxia possibly some atelectasis. 4. Pancreatic cancer on chemotherapy. 5. History of gastrointestinal bleed, multifactorial. 6. Increased WBC. 7. Anemia of chronic disease and chronic gastrointestinal bleed. 8. Elevated platelet count. 9. Hyponatremia. 10.Hypokalemia. 11.Hypocalcemia. 12.Hypoalbuminemia with severe protein-calorie malnutrition. 13.History of gastroesophageal reflux disease. 14.Hypertension. 15.Hyperlipidemia. 16.History of degenerative joint disease. 17.History of osteoporosis. 18.History of low back pain. 19.History of sciatica. 20.History of chronic bronchitis. 21.History of anxiety/depression. 22.Continued ongoing nicotine dependence. 23.History of THC. 24.Remote history of ETOH. 25.FULL CODE. RECOMMENDATIONS AND DISCUSSION: I recommend to continue current medications, management and symptomatic treatment. I recommend a course of bronchodilators, empiric antibiotics for the pneumonia. Consult Dr. Hough for hypoxia. Repeat labs. Monitor potassium closely. Continue the rest of medications. Pain management. Prognosis guarded because of multiple complex medical issues. Further recommendations to follow. MMODL / IJN: [id number] /
--- NOTE | 2021-02-09 23:38 | P.CONS ---
History of Present Illness - Reason for Consult Consult date: 02/09/21 Abd pain, pancreatic ca - History of Present Illness Ms. Morel is a 65 yr old -Domin[place] female, well known to myself. She was initially hospitalized in mid 09/09 because of an allergic reaction. During that admission she was found to have elevated liver enzymes. Abd US 09/04/20 showed common bile duct and intrahepatic duct dilatation with possible mass in the pancreatic head. This led to GI consult and MRCP. This confirmed mild to moderate central intrahepatic along with extrahepatic biliary dilatation. There was abrupt cutoff seen in the region of the pancreatic head. There was suggestion of a pancreatic head mass measuring 3.8 x 3.2 cm. There appeared to be generalized atrophy and ductal dilatation in the pancreas. There was no suspicious adenopathy or liver lesions seen. GI recommended a referral to [facility] for endoscopic ultrasound. Prior to that she was admitted to the hospital for increasing abdominal pain, and decreased appetite on 09/24/20. During that admission bilirubin was 2.4, AST 501, ALT 462 and alkaline phosphatase 778. She was transferred to [facility] where she underwent an EUS on 10/02/20. 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 Was admitted to the hospital in the week of 10/29/20 with increased abdominal pain and fever. This was controlled with adjustment of pain medications. A celiac plexus block was planned but put on hold due to the fever. Repeat imaging showed no recurrent biliary obstruction. PET 11/01/20 showed no evidence of metastatic disease. The patient has had multiple admissions with episodes of abdominal pain, clinically due to Acute on chronic pancreatitis exacerbations. It also appears that the patient may not be always compliant with her recommended pain medication regimen. I would typically she has responded well to supportive care and is able to be discharged after 1-3 days stays Due to the above admissions for surgical evaluation was delayed but she did ultimately see Dr. Rock [facility]. She was felt to be a a candidate for treatment with curative intent. It was recommended that she have neoadjuvant chemotherapy followed by evaluation for possible Whipple's pro cedure. The patient started chemotherapy with gemcitabine and Abraxane on 12/23/20. She was hospitalized after 2/3 weekly cycles of cycle 1. Treatment was delayed as a result. She resume chemotherapy therapy in about a week ago. The patient states that she has had episodes of increased abdominal pain off and on which have been responsive to her pain medication. To me she reported that she had been taking her pancreatic enzyme supplements but once or twice a day instead of with each meal as recommended. She developed increased pain over the past 2 days which did not respond well to pain medication and was associated with nausea and decreased appetite. She therefore came back into the emergency room. She was found to have WBC elevation. Chest x-ray raised the possibility of a new infiltrate.She was admitted for further management,and consult placed. Review of Systems Constitutional: Reports chronic pain, Reports poor appetite, Reports weakness Eyes: denies blurred vision, denies pain Ears: deny: decreased hearing, ear discharge, earache, tinnitus Ears, nose, mouth and throat: Denies headache, Denies sore throat Cardiovascular: Reports decreased exercise tolerance Respiratory: Denies cough Gastrointestinal: Reports abdominal pain, Reports constipation, Reports nausea Genitourinary: Denies dysuria, Denies hematuria Menstruation: Reports postmenopausal Musculoskeletal: Reports muscle weakness Integumentary: Denies pruritus, Denies rash Neurological: Reports weakness Psychiatric: Reports anxiety Endocrine: Reports fatigue, Reports weight change Hematologic/Lymphatic: Reports as per HPI Past Medical History Past Medical History: Cancer, GERD/Reflux, Hyperlipidemia, Hypertension, Musculoskeletal Disorder, Osteoarthritis (OA) Additional Past Medical History / Comment(s): Osteoporosis, Lower Back Pain, Sciatica. TOLD YEARS AGO SHE HAD HEART MURMUR- NO TX, HX ACUTE BRONCHITIS(SMOKER), August 2020 pancreatic cancer. Current head tremor. Feet, ankles and legs swollen. History of Any Multi-Drug Resistant Organisms: None Reported Past Surgical History: Orthopedic Surgery, Tubal Ligation Additional Past Surgical History / Comment(s): 2 pins in right hip-dislocated 1975. Past Anesthesia/Blood Transfusion Reactions: No Reported Reaction Smoking Status: Current every day smoker - Past Family History Mother Family Medical History: Liver Disease Father Family Medical History: Cancer Additional Family Medical History / Comment(s): Lung or liver cancer. Medications and Allergies Home Medications Medication Instructions Recorded Confirmed Type amLODIPine BESYLATE/BENAZEPRIL 1 cap PO DAILY 09/25/13 02/08/21 History [amLODIPine BESYLATE/BENAZEPRIL 10-40 MG] Docusate [Colace] 200 mg PO DAILY #30 cap 01/06/21 02/08/21 Rx Pantoprazole Sodium [Protonix] 40 mg PO DAILY #30 tab 01/06/21 02/08/21 Rx HYDROcodone/APAP 5-325MG [[place] 1 tab PO Q6HR PRN 3 Days #12 tab 01/24/21 02/08/21 Rx 5-325] Magnesium Oxide [Mag-Ox] 400 mg PO BID 15 Days #30 tab 01/24/21 02/08/21 Rx Gabapentin [Neurontin] 300 mg PO BID 02/08/21 02/08/21 History Potassium Chloride ER [K-Dur 10] 10 meq PO BID 02/08/21 02/08/21 History traMADol HCL 50 mg PO Q6H PRN 02/08/21 02/08/21 History Allergies Allergy/AdvReac Type Severity Reaction Status Date / Time amylase [From Zenpep] AdvReac stomach Verified 02/08/21 09:48 pain erythromycin base AdvReac Nausea Verified 02/08/21 09:48 [Erythromycin Base] gabapentin AdvReac Hallucinati Verified 02/08/21 09:48 ons lipase [From Zenpep] AdvReac stomach Verified 02/08/21 09:48 pain protease [From Zenpep] AdvReac stomach Verified 02/08/21 09:48 pain Physical Exam Vitals: Vital Signs Temp Pulse Pulse Resp BP Pulse Ox 02/09/21 15:49 116 H 02/09/21 15:36 115 H 02/09/21 15:34 100 02/09/21 13:00 98.4 F 57 L 129/93 02/09/21 09:50 88 150/95 02/09/21 05:18 98.2 F 67 18 147/99 93 L 02/08/21 20:00 98.1 F 92 16 128/88 100 02/08/21 18:19 98.4 F 106 H 18 150/98 99 Intake and Output 02/09/21 02/09/21 02/09/21 06:59 14:59 22:59 Other: # Voids 2 - Constitutional General appearance: no acute distress - EENT Eyes: EOMI, PERRLA ENT: hearing grossly normal, normal oropharynx - Neck Neck: no lymphadenopathy Thyroid: bilateral: normal size - Respiratory Respiratory: bilateral: CTA - Cardiovascular Rhythm: regular Heart sounds: normal: S1, S2 - Gastrointestinal General gastrointestinal: normal bowel sounds, soft Localized gastrointestinal: tender: epigastric periumbilical - Integumentary Integumentary: normal - Neurologic Neurologic: CNII-XII intact - Musculoskeletal Musculoskeletal: generalized weakness, strength equal bilaterally - Psychiatric Psychiatric: A&O x's 3, appropriate affect Results CBC & Chem 7: 02/09/21 07:51 02/09/21 07:51 Labs: Abnormal Lab Results - Last 24 Hours (Table) 02/09/21 02/09/21 02/09/21 Range/Units 07:51 07:51 15:10 WBC 26.1 H (3.8-10.6) k/uL RBC 3.23 L (3.80-5.40) m/uL Hgb 9.1 L (11.4-16.0) gm/dL Hct 28.4 L (34.0-46.0) % RDW 21.0 H (11.5-15.5) % Neutrophils # (Manual) 24.80 H (1.3-7.7) k/uL Lymphocytes # (Manual) 0.78 L (1.0-4.8) k/uL ABG pH 7.51 H (7.35-7.45) ABG pCO2 21 L (35-45) mmHg ABG pO2 137 H (83-108) mmHg ABG HCO3 17 L (21-25) mmol/L ABG Total CO2 17 L (19-24) mmol/L ABG O2 Saturation 100.0 H (94-97) % Sodium 135 L (137-145) mmol/L Chloride 111 H (98-107) mmol/L Carbon Dioxide 18 L (22-30) mmol/L BUN 6 L (7-17) mg/dL Calcium 7.4 L (8.4-10.2) mg/dL Alkaline Phosphatase 358 H (38-126) U/L Total Protein 5.2 L (6.3-8.2) g/dL Albumin 2.0 L (3.5-5.0) g/dL Comments: EKG image reviewed Chest x-ray: report reviewed Assessment and Plan (1) Intractable abdominal pain Narrative/Plan: The patient has had intermittent episodes of abdominal pain, with more severe exacerbations. Into multiple hospital admissions since her initial diagnosis. Clinically this felt to be due to episodes of acute on chronic pancreatitis. The patient typically responds quite well to supportive treatment and is able to be discharged after 1-3 days on average. Her current episode appears to be fairly similar. Abdominal exam is essentially benign. Patient states that she is feeling better since admission yesterday has noted improvement in appetite -Continue supportive medications - Patient was urged to be compliant with her pain medication regimen as well as pancreatic enzyme supplementation regimen on discharge - Check abdominal x-ray in the a.m. Current Visit: Yes Status: Acute Code(s): R10.9 - UNSPECIFIED ABDOMINAL PAIN SNOMED Code(s): 34938356 (2) Pancreatic cancer Narrative/Plan: The patient has had delays in initial evaluation and initiation of treatment due to multiple hospitalizations. She is currently on chemotherapy but had a delay after 2/3 weekly treatments of cycle 1 again due to a hospitalization. Sc heduled to resume treatment post discharge depending on her performance status Current Visit: No Status: Acute Priority: High Code(s): C25.9 - MALIGNANT NEOPLASM OF PANCREAS, UNSPECIFIED SNOMED Code(s): 058190448 (3) Pneumonia Narrative/Plan: Suspected due to chest x-ray findings and elevated WBC. WBC elevation may actu ally be due to post-chemotherapy effect. Patient is currently on antibiotic. Current Visit: Yes Status: Acute Code(s): J18.9 - PNEUMONIA, UNSPECIFIED ORGANISM SNOMED Code(s): 239704929
[2021-02-10] MEDS: HYDROmorphone 0.5 MG/0.5 ML SYRINGE IVP PRN ×2 (06:16→21:13)
[2021-02-10] MEDS: IPRATROPIUM-ALBUTEROL 3 ML NEB INHALATION SCH ×5 (07:22→19:25)
[2021-02-10] MEDS: lisinopriL 20 MG TAB PO SCH (07:47)
[2021-02-10] MEDS: amLODIPine 10 MG TAB PO SCH (07:47)
[2021-02-10] MEDS: SIMETHICONE 40 MG/0.6 ML DROPS 2,000 MG/30 ML BOTTLE PO SCH ×4 (07:48→21:14)
[2021-02-10] MEDS: HEPARIN SODIUM,PORCINE/PF 5,000 UNIT/0.5 ML SYRINGE SQ SCH ×3 (07:48→21:16)
[2021-02-10] MEDS: POTASSIUM CHLORIDE ER 10 MEQ TAB.ER.PRT PO SCH ×2 (07:49→21:14)
[2021-02-10] MEDS: MAGNESIUM OXIDE 400 MG TAB PO SCH ×2 (07:49→21:14)
[2021-02-10] MEDS: DOCUSATE 100 MG CAP PO SCH (07:49)
[2021-02-10] MEDS: GABAPENTIN 300 MG CAP PO SCH ×2 (07:49→21:14)
[2021-02-10] MEDS: SODIUM CHLORIDE 0.9% 1,000 ML IV SCH ×3 (09:32→21:14)
[2021-02-10 10:07] LABS: Anisocytosis Moderate; HCT 28.6 % (34.0-46.0); HGB 8.7 gm/dL (11.4-16.0); Hypochromasia Marked; MCHC 30.3 g/dL (31.0-37.0); MCV 92.6 fL (80.0-100.0); Macrocytosis Slight; Mean Platelet Volume 9.7; RBC 3.09 m/uL (3.80-5.40); RDW 20.7 % (11.5-15.5); WBC 30.1 k/uL (3.8-10.6)
[2021-02-10 10:21] LABS: African American GFR (CKD) 71 (>60 ml/min/1.73 sqM); Anion Gap 12 mmol/L; Blood Urea Nitrogen 8 mg/dL (7-17); Carbon Dioxide 13 mmol/L (22-30); Chloride 111 mmol/L (98-107); Non-African American GFR(CKD) 62 (>60 ml/min/1.73 sqM); Potassium 4.1 mmol/L (3.5-5.1); Sodium 136 mmol/L (137-145)
[2021-02-10 10:32] LABS: Platelet Count 196 k/uL (150-450)
[2021-02-10 10:35] LABS: Glucose 31 mg/dL (74-99)
[2021-02-10 10:40] LABS: Glucose,Whole Blood 94 mg/dL (75-99)
--- NOTE | 2021-02-10 10:51 | P.PN ---
Subjective Progress Note Date: 02/10/21 Principal diagnosis: pancreatic cancer Patient appears cachetic, ill, lethargic today. hypotensive, difficulty obtaining vitals per RN. Treatment for pneumonia started, however do not see initial blood cultures, ordered today. Objective - Vital Signs Vital signs: Vital Signs Temp 98.9 F 02/10/21 07:46 Pulse 106 H 02/10/21 07:46 Resp 20 02/10/21 07:46 BP 82/50 02/10/21 07:46 Pulse Ox 99 02/10/21 05:00 Intake & Output 02/09/21 02/10/21 02/10/21 18:59 06:59 18:59 Intake Total 1450 480 Balance 1450 480 Intake: Intake, IV Titration 850 Amount Sodium Chloride 0.9% 1, 800 000 ml @ 75 mls/hr IV . [id number] JUAN Rx#:[id number] cefTRIAXone 1 gm In 50 Sodium Chloride 0.9% 50 ml @ 100 mls/hr IVPB Q24H JUAN Rx#:[id number] Oral 600 480 Other: # Voids 2 3 - Exam Cachetic, shakey, weak NAD No increased effort in respirations, diminished on auscultation Heart: tachy Abd: Flat, tender no edema - Labs CBC & Chem 7: 02/11/21 05:17 02/11/21 05:17 Labs: Abnormal Lab Results - Last 24 Hours (Table) 02/09/21 Range/Units 15:10 ABG pH 7.51 H (7.35-7.45) ABG pCO2 21 L (35-45) mmHg ABG pO2 137 H (83-108) mmHg ABG HCO3 17 L (21-25) mmol/L ABG Total CO2 17 L (19-24) mmol/L ABG O2 Saturation 100.0 H (94-97) % Assessment and Plan (1) Pneumonia Current Visit: Yes Status: Acute Code(s): J18.9 - PNEUMONIA, UNSPECIFIED ORGANISM SNOMED Code(s): 214971289 (2) Malnutrition Current Visit: No Status: Acute Code(s): E46 - UNSPECIFIED PROTEIN-CALORIE MALNUTRITION SNOMED Code(s): 89449365 (3) Pancreatic cancer Current Visit: No Status: Acute Priority: High Code(s): C25.9 - MALIGNANT NEOPLASM OF PANCREAS, UNSPECIFIED SNOMED Code(s): 302341628 Plan: Full vora cultures ordered Monitor CBC, CMP Re-discussed the importance of adequate intake, using her pancreatic enzymes and maintaining weight. Physician Attest: I have completed the full history and physical and agree with above dictation, dictated as a ascribe
--- NOTE | 2021-02-10 10:57 | P.CNPUL ---
History of Present Illness Consult date: 02/10/21 Requesting physician: Yvrose Brito Reason for consult: dyspnea, hypoxemia Chief complaint: Hypoxemia. History of present illness: Pulmonary consult dated 02/10/2021. 65-year-old black female, with history of chronic pancreatitis, and pancreatic cancer, currently undergoing chemoradiation. The patient apparently presents to the emergency department on February 08, complaining of abdominal pain. The patient was seen on February 08, and we are consulted this morning for hypoxemic respiratory failure. The patient appears to be very frail and weak. She is lying half on the bed and half off the bed. She's not really able to give much of a history. Does not appear to be in any significant respiratory distress. She just on 2 L nasal cannula. The abdominal pain is being evaluated by the primary service, and also by medical oncology. She apparently has a history of pancreatic cancer, gastroesophageal reflux disease, hyperlipidemia, hypertension, osteoarthritis, and pancreatitis. She does have a history of ongoing tobacco use. White count 30.1, hemoglobin 8.7, hematocrit 28.6, and platelet count 196,000. Blood gases were done yesterday showed a pO2 of 137, pCO2 21, and a pH 7.51. This blood gases consistent with a respiratory alkalosis. Sodium 136, potassium 4.1, chlorides 111, CO2 13, anion gap 12, BUN 8, and creatinine 0.97. Testing for martinez virus was negative. Chest x-rays are consistent with changes of COPD, and some mild basilar atelectasis. Review of Systems REVIEW OF SYSTEMS: CONSTITUTIONAL: [Negative.] NEUROLOGIC: [ Negative.] HEENT: [ Negative.] CARDIAC: [Negative.] PULMONARY: [Negative.] GI: Abdominal pain. : [Negative.] RHEUMATOLOGIC: [ Negative.] IMMUNOLOGIC: [ Negative.] ENDOCRINE: [Negative. ] DERMATOLOGIC: [Negative.] Past Medical History Past Medical History: Cancer, GERD/Reflux, Hyperlipidemia, Hypertension, Musculoskeletal Disorder, Osteoarthritis (OA) Additional Past Medical History / Comment(s): Osteoporosis, Lower Back Pain, Sc iatica. TOLD YEARS AGO SHE HAD HEART MURMUR- NO TX, HX ACUTE BRONCHITIS(SMOKER), August 2020 pancreatic cancer. Current head tremor. Feet, ankles and legs swollen. History of Any Multi-Drug Resistant Organisms: None Reported Past Surgical History: Orthopedic Surgery, Tubal Ligation Additional Past Surgical History / Comment(s): 2 pins in right hip-dislocated 1975. Past Anesthesia/Blood Transfusion Reactions: No Reported Reaction Smoking Status: Current every day smoker - Past Family History Mother Family Medical History: Liver Disease Father Family Medical History: Cancer Additional Family Medical History / Comment(s): Lung or liver cancer. Medications and Allergies Home Medications Medication Instructions Recorded Confirmed Type amLODIPine BESYLATE/BENAZEPRIL 1 cap PO DAILY 09/25/13 02/08/21 History [amLODIPine BESYLATE/BENAZEPRIL 10-40 MG] Docusate [Colace] 200 mg PO DAILY #30 cap 01/06/21 02/08/21 Rx Pantoprazole Sodium [Protonix] 40 mg PO DAILY #30 tab 01/06/21 02/08/21 Rx HYDROcodone/APAP 5-325MG [[place] 1 tab PO Q6HR PRN 3 Days #12 tab 01/24/21 02/08/21 Rx 5-325] Magnesium Oxide [Mag-Ox] 400 mg PO BID 15 Days #30 tab 01/24/21 02/08/21 Rx Gabapentin [Neurontin] 300 mg PO BID 02/08/21 02/08/21 History Potassium Chloride ER [K-Dur 10] 10 meq PO BID 02/08/21 02/08/21 History traMADol HCL 50 mg PO Q6H PRN 02/08/21 02/08/21 History Allergies Allergy/AdvReac Type Severity Reaction Status Date / Time amylase [From Zenpep] AdvReac stomach Verified 02/08/21 09:48 pain erythromycin base AdvReac Nausea Verified 02/08/21 09:48 [Erythromycin Base] gabapentin AdvReac Hallucinati Verified 02/08/21 09:48 ons lipase [From Zenpep] AdvReac stomach Verified 02/08/21 09:48 pain protease [From Zenpep] AdvReac stomach Verified 02/08/21 09:48 pain Physical Exam Osteopathic Statement: *. No significant issues noted on an osteopathic structural exam other than those noted in the History and Physical/Consult. Vitals: Vital Signs Temp Pulse Pulse Resp BP BP Pulse Ox 02/10/21 07:46 98.9 F 106 H 20 82/50 02/10/21 07:33 102 H 02/10/21 07:23 100 02/10/21 05:00 98.7 F 99 16 97/62 99 02/09/21 20:29 129/68 02/09/21 20:00 99.6 F 52 L 16 72/56 99 02/09/21 15:49 116 H 02/09/21 15:36 115 H 02/09/21 15:34 100 02/09/21 13:00 98.4 F 57 L 129/93 Intake and Output 02/09/21 02/10/21 02/10/21 22:59 06:59 14:59 Intake Total 1450 480 Balance 1450 480 Intake: Intake, IV Titration 850 Amount Sodium Chloride 0.9% 1, 800 000 ml @ 75 mls/hr IV . [id number] JUAN Rx#:[id number] cefTRIAXone 1 gm In 50 Sodium Chloride 0.9% 50 ml @ 100 mls/hr IVPB Q24H JUAN Rx#:[id number] Oral 600 480 Other: # Voids 2 3 No acute distress, lethargic. No respiratory distress. Currently on 2 L. HEENT examination is grossly unremarkable. Neck supple. Full range of motion. No adenopathy thyromegaly or neck vein distention. Cardiovascular examination reveals regular rhythm rate. S1-S2 normal. No S3 or S4. No discernible murmur noted. Heart sounds are distant. Heart rate 100 bpm. Lungs reveal mostly clear bilateral breath sounds. Minimal rhonchi. No wheezes or crackles appreciated. The patient does not take deep breaths. Abdomen soft, without tenderness on palpation. Extremities are intact. No cyanosis clubbing or edema. Skin is without rash or lesion. Neurologic examination is brief but nonfocal. Results - Laboratory Findings CBC and BMP: 02/10/21 05:58 02/10/21 05:58 ABG ABG pH 7.51 (7.35-7.45) H 02/09/21 15:10 ABG pCO2 21 mmHg (35-45) L 02/09/21 15:10 ABG pO2 137 mmHg (83-108) H 02/09/21 15:10 ABG O2 Saturation 100.0 % (94-97) H 02/09/21 15:10 Abnormal lab findings: Abnormal Labs 02/08/21 02/08/21 02/08/21 10:08 10:08 10:08 WBC 16.9 H RBC 3.33 L Hgb 9.2 L Hct 28.9 L MCHC RDW 20.8 H Plt Count 518 H Neutrophils # 15.3 H Neutrophils # (Manual) Lymphocytes # (Manual) ABG pH ABG pCO2 ABG pO2 ABG HCO3 ABG Total CO2 ABG O2 Saturation Sodium 131 L Potassium 3.1 L Chloride Carbon Dioxide 19 L BUN 5 L Glucose 153 H Calcium 7.6 L Alkaline Phosphatase 401 H Total Protein 5.3 L Albumin 2.1 L Urine Appearance Cloudy H Urine Protein 1+ H Urine Glucose (UA) 1+ H Ur Squamous Epith Cells 7 H Amorphous Sediment Moderate H Urine Bacteria Rare H Hyaline Casts 28 H Urine Mucus Few H 02/09/21 02/09/21 02/09/21 07:51 07:51 15:10 WBC 26.1 H RBC 3.23 L Hgb 9.1 L Hct 28.4 L MCHC RDW 21.0 H Plt Count Neutrophils # Neutrophils # (Manual) 24.80 H Lymphocytes # (Manual) 0.78 L ABG pH 7.51 H ABG pCO2 21 L ABG pO2 137 H ABG HCO3 17 L ABG Total CO2 17 L ABG O2 Saturation 100.0 H Sodium 135 L Potassium Chloride 111 H Carbon Dioxide 18 L BUN 6 L Glucose Calcium 7.4 L Alkaline Phosphatase 358 H Total Protein 5.2 L Albumin 2.0 L Urine Appearance Urine Protein Urine Glucose (UA) Ur Squamous Epith Cells Amorphous Sediment Urine Bacteria Hyaline Casts Urine Mucus 02/10/21 02/10/21 05:58 05:58 WBC 30.1 H RBC 3.09 L Hgb 8.7 L Hct 28.6 L MCHC 30.3 L RDW 20.7 H Plt Count Neutrophils # Neutrophils # (Manual) Lymphocytes # (Manual) ABG pH ABG pCO2 ABG pO2 ABG HCO3 ABG Total CO2 ABG O2 Saturation Sodium 136 L Potassium Chloride 111 H Carbon Dioxide 13 L BUN Glucose 31 L* Calcium 7.0 L Alkaline Phosphatase Total Protein Albumin Urine Appearance Urine Protein Urine Glucose (UA) Ur Squamous Epith Cells Amorphous Sediment Urine Bacteria Hyaline Casts Urine Mucus - Diagnostic Findings Chest x-ray: image reviewed Assessment and Plan Assessment: Mild hypoxemia, likely related to patient not taking deep breaths, as well as underlying COPD. History of pancreatic cancer, currently undergoing chemotherapy. Pancreatitis, chronic. History of gastroesophageal reflux disease. History of hyperlipidemia. History of hypertension. History of osteoarthritis. History of ongoing tobacco use. History of anxiety/depression. Plan: Plan dated 02/10/2021. Currently, the patient is receiving DuoNeb's. That is appropriate. The patient is encouraged to take deep breaths. An incentive spirometer probably would help. No acute abnormalities at this time. We'll continue to follow. Prognosis is guarded. Time with Patient: Greater than 30
[2021-02-10 11:55] LABS: Anisocytosis Moderate; HCT 24.6 % (34.0-46.0); HGB 7.9 gm/dL (11.4-16.0); Hypochromasia Slight; MCH 27.9 pg (25.0-35.0); MCHC 32.1 g/dL (31.0-37.0); Mean Platelet Volume 10.6; Microcytosis Slight; Platelet Count 162 k/uL (150-450); RBC 2.82 m/uL (3.80-5.40); WBC 26.8 k/uL (3.8-10.6)
[2021-02-10 11:57] LABS: MCV 87.1 fL (80.0-100.0)
[2021-02-10 12:03] LABS: ALT 17 U/L (4-34); AST 47 U/L (14-36); African American GFR (CKD) 62 (>60 ml/min/1.73 sqM); Albumin 1.7 g/dL (3.5-5.0); Albumin/Globulin Ratio 0.6; Alkaline Phosphatase 295 U/L (38-126); Anion Gap 5 mmol/L; Blood Urea Nitrogen 10 mg/dL (7-17); Calcium 6.9 mg/dL (8.4-10.2); Carbon Dioxide 17 mmol/L (22-30); Chloride 110 mmol/L (98-107); Globulin 2.9 g/dL; Glucose 115 mg/dL (74-99); Magnesium 1.6 mg/dL (1.6-2.3); Non-African American GFR(CKD) 54 (>60 ml/min/1.73 sqM); Sodium 132 mmol/L (137-145); Total Bilirubin 0.6 mg/dL (0.2-1.3); Total Protein 4.6 g/dL (6.3-8.2)
[2021-02-10 12:47] LABS: Glucose,Whole Blood 185 mg/dL (75-99)
[2021-02-10 13:24] LABS: Band Neutrophils % 2 %; Lymphocytes # (M) 0.27 k/uL (1.0-4.8); Metamyelocytes # (M) 0.27 k/uL (0); Metamyelocytes % 1 %; Neutrophils % (M) 97 %; Nucleated Red Blood Cells 0 /100 WBC (0-0); Total Cells Counted 200
[2021-02-10 13:25] LABS: Toxic Vacuolation Present
[2021-02-10 13:57] VITALS: BMI 12.9
[2021-02-10 14:17] LABS: Band Neutrophils % 2 %; Metamyelocytes % 2 %; Myelocytes % 2 %; Neutrophils % (M) 94 %; Nucleated Red Blood Cells 0 /100 WBC (0-0); Total Cells Counted 200
[2021-02-10 14:19] LABS: Poikilocytosis (M) Present; Target Cells Present
[2021-02-10 17:31] LABS: Glucose,Whole Blood 172 mg/dL (75-99)
[2021-02-10 20:14] LABS: Glucose,Whole Blood 154 mg/dL (75-99)
[2021-02-10 21:48] LABS: Appearance,Urine Cloudy (Clear); Bacteria,Urine Rare /hpf; Bilirubin,Urine Negative (Negative); Blood,Urine Trace (Negative); Color,Urine Yellow; Glucose,Urine (UA) Negative (Negative); Hyaline Casts,Urine 18 /lpf (0-2); Ketones,Urine Negative (Negative); Leukocyte Esterase,Urine Negative (Negative); Mucus,Urine Rare /hpf; Nitrite,Urine Negative (Negative); Protein,Urine 1+ (Negative); RBC,Urine 1 /hpf (0-5); Specific Gravity,Urine 1.021 (1.001-1.035); Squamous Epithelial Cell,Urine 2 /hpf (0-4); Urobilinogen,Urine <2.0 mg/dL (<2.0); WBC,Urine 4 /hpf (0-5)
--- NOTE | 2021-02-10 23:20 | P.PN ---
Subjective Progress Note Date: 02/10/21 This is a 65-year-old female who presented to the hospital with chronic abdominal pain and shortness of breath with a known history of pancreatic cancer status post chemotherapy. 02/10/2021 Patient is evaluated today sitting up in the bed eating. Her blood sugar was 31 with her a.m. labs, stat Accu-Chek once labs came back was 96. Additional labs today show a white count of 26.8, hemoglobin 7.9, neutrophils 26.5, sodium 132, chloride 110, CO2 17, creatinine 1.08, calcium 6.9, mag 1.6, AST 47, ALT 17, alk phos 295, protein 4.6, albumin 1.7. Procalcitonin elevated at 20.80. We did advance her diet to full liquid as tolerated and can advance. We'll replace K per protocol. Blood pressure meds, lisinopril and amlodipine, were stopped today as she was hypotensive this morning 82/50. Sodium is most likely related to dehydration. It is felt patient's hypoxemia is mostly related to show respirations due to acute abdominal pain and underlying COPD, we did order an incentive spirometer for her. Prognosis is extremely guarded for this patient, as she continues to have frequent admissions for this acute abdominal pain however she is noncompliant with her pain management at home. Patient continues to smoke half a pack of cigarettes per day, and has poor oral intake. ROS Constitutional: Denied any fatigue denied any fever. Cardio vascular: denied any chest pain, palpitations Gastrointestinal denied any nausea vomiting Pulmonary: Denied any shortness of breath cough Neurologic denied any new focal deficits All inpatient medications were reviewed and appropriate changes in these medicat ions as dictated in the interval history and assessment and plan. PHYSICAL EXAMINATION: GENERAL: The patient is alert and oriented x3, not in any acute distress. Well developed, patient appears fatigued and lethargic today. She is cachetic appearing. HEENT: Pupils are round and equally reacting to light. EOMI. No scleral icterus. No conjunctival pallor. Normocephalic, atraumatic. No pharyngeal erythema. No thyromegaly. CARDIOVASCULAR: S1 and S2 present. No murmurs, rubs, or gallops. PULMONARY: Chest is clear to auscultation, no wheezing or crackles. There is decreased aeration, posterior all lung mccrary. ABDOMEN: Soft, nontender, nondistended, normoactive bowel sounds. No palpable organomegaly. MUSCULOSKELETAL: No joint swelling or deformity. EXTREMITIES: No cyanosis, clubbing, or pedal edema. NEUROLOGICAL: Gross neurological examination did not reveal any focal deficits. SKIN: No rashes. Assessment and plan Assessment Acute abdominal pain, possibly due to acute on chronic pancreatitis, and known history of pancreatic cancer Possible left lower lobe infiltrate and pneumonia with sepsis, present on admission Hypoxia secondary to shallow respirations from abdominal pain, underlying COPD, and possible pneumonia Hypotension, secondary to dehydration, possible sepsis Acute kidney injury, most likely acute tubular necrosis s/t hypotension Hypoglycemia Elevated procalcitonin, 20.8 Pancreatic cancer, s/p chemotherapy Leukocytosis s/t above Malnutrition Anemia of chronic disease, and chronic gastrointestinal bleed Hyponatremia due to dehydration and poor oral intake Hypokalemia due to dehydration and poor oral intake History of Hypertension Hyperlipidemia History of COPD, not in acute exacerbation Chronic nicotine dependence; 1/2 PPD History of marijuana use Remote history of ETOH GI Prophylaxis : Protonix DVT Prophylaxis: Subcu heparin FULL CODE Plan Increase IV fluids, discontinued lisinopril and amlodipine Accuchecks ACHS Continue to encourage IS Advance Diet as tolerated Pain management Blood cultures pending, continue on empiric antibiotics Repeat Labs in the AM Chest Xray in the AM PT/OT Continue all other supportive care, extremely guarded prognosis. Objective - Vital Signs Vital signs: Vital Signs Temp 98.9 F 02/10/21 07:46 Pulse 106 H 02/10/21 07:46 Resp 20 02/10/21 07:46 BP 82/50 02/10/21 07:46 Pulse Ox 99 02/10/21 05:00 Intake & Output 02/09/21 02/10/21 02/10/21 18:59 06:59 18:59 Intake Total 1450 480 Balance 1450 480 Weight 37.603 kg Intake: Intake, IV Titration 850 Amount Sodium Chloride 0.9% 1, 800 000 ml @ 75 mls/hr IV . [id number] JUAN Rx#:[id number] cefTRIAXone 1 gm In 50 Sodium Chloride 0.9% 50 ml @ 100 mls/hr IVPB Q24H JUAN Rx#:[id number] Oral 600 480 Other: # Voids 2 3 - Labs CBC & Chem 7: 02/10/21 11:15 02/10/21 11:15 Labs: Abnormal Lab Results - Last 24 Hours (Table) 02/09/21 02/10/21 02/10/21 Range/Units 15:10 05:58 05:58 WBC 30.1 H (3.8-10.6) k/uL RBC 3.09 L (3.80-5.40) m/uL Hgb 8.7 L (11.4-16.0) gm/dL Hct 28.6 L (34.0-46.0) % MCHC 30.3 L (31.0-37.0) g/dL RDW 20.7 H (11.5-15.5) % Neutrophils # (Manual) (1.3-7.7) k/uL Lymphocytes # (Manual) (1.0-4.8) k/uL Metamyelocytes # (Man) (0) k/uL ABG pH 7.51 H (7.35-7.45) ABG pCO2 21 L (35-45) mmHg ABG pO2 137 H (83-108) mmHg ABG HCO3 17 L (21-25) mmol/L ABG Total CO2 17 L (19-24) mmol/L ABG O2 Saturation 100.0 H (94-97) % Sodium 136 L (137-145) mmol/L Chloride 111 H (98-107) mmol/L Carbon Dioxide 13 L (22-30) mmol/L Creatinine (0.52-1.04) mg/dL Glucose 31 L* (74-99) mg/dL POC Glucose (mg/dL) (75-99) mg/dL Calcium 7.0 L (8.4-10.2) mg/dL AST (14-36) U/L Alkaline Phosphatase (38-126) U/L Total Protein (6.3-8.2) g/dL Albumin (3.5-5.0) g/dL 02/10/21 02/10/21 02/10/21 Range/Units 11:15 11:15 12:45 WBC 26.8 H (3.8-10.6) k/uL RBC 2.82 L (3.80-5.40) m/uL Hgb 7.9 L (11.4-16.0) gm/dL Hct 24.6 L (34.0-46.0) % MCHC (31.0-37.0) g/dL RDW 21.0 H (11.5-15.5) % Neutrophils # (Manual) 26.50 H (1.3-7.7) k/uL Lymphocytes # (Manual) 0.27 L (1.0-4.8) k/uL Metamyelocytes # (Man) 0.27 H (0) k/uL ABG pH (7.35-7.45) ABG pCO2 (35-45) mmHg ABG pO2 (83-108) mmHg ABG HCO3 (21-25) mmol/L ABG Total CO2 (19-24) mmol/L ABG O2 Saturation (94-97) % Sodium 132 L (137-145) mmol/L Chloride 110 H (98-107) mmol/L Carbon Dioxide 17 L (22-30) mmol/L Creatinine 1.08 H (0.52-1.04) mg/dL Glucose 115 H (74-99) mg/dL POC Glucose (mg/dL) 185 H (75-99) mg/dL Calcium 6.9 L (8.4-10.2) mg/dL AST 47 H (14-36) U/L Alkaline Phosphatase 295 H (38-126) U/L Total Protein 4.6 L (6.3-8.2) g/dL Albumin 1.7 L (3.5-5.0) g/dL Assessment and Plan Time with Patient: Greater than 30
[2021-02-11] MEDS: HYDROmorphone 0.5 MG/0.5 ML SYRINGE IVP PRN ×3 (00:49→23:27)
[2021-02-11 06:13] LABS: Anisocytosis Moderate; Basophils % (A) 0 %; Eosinophils # (A) 0.1 k/uL (0-0.7); Eosinophils % (A) 1 %; HCT 24.1 % (34.0-46.0); HGB 7.8 gm/dL (11.4-16.0); Hypochromasia Slight; Lymphocytes # (A) 0.9 k/uL (1.0-4.8); Lymphocytes % (A) 7 %; MCH 28.4 pg (25.0-35.0); MCHC 32.3 g/dL (31.0-37.0); MCV 87.7 fL (80.0-100.0); Mean Platelet Volume 9.5; Microcytosis Slight; Monocytes # (A) 0.2 k/uL (0-1.0); Monocytes % (A) 2 %; Neutrophils # (A) 11.5 k/uL (1.3-7.7); Neutrophils % (A) 90 %; Platelet Count 103 k/uL (150-450); RBC 2.74 m/uL (3.80-5.40); RDW 21.2 % (11.5-15.5); WBC 12.8 k/uL (3.8-10.6)
[2021-02-11 06:15] LABS: African American GFR (CKD) >90 (>60 ml/min/1.73 sqM); Anion Gap 4 mmol/L; Blood Urea Nitrogen 11 mg/dL (7-17); Calcium 7.1 mg/dL (8.4-10.2); Carbon Dioxide 18 mmol/L (22-30); Chloride 112 mmol/L (98-107); Glucose 162 mg/dL (74-99); Magnesium 1.7 mg/dL (1.6-2.3); Non-African American GFR(CKD) 80 (>60 ml/min/1.73 sqM); Potassium 4.2 mmol/L (3.5-5.1); Sodium 134 mmol/L (137-145)
[2021-02-11 07:23] LABS: Glucose,Whole Blood 141 mg/dL (75-99)
[2021-02-11] MEDS: POTASSIUM CHLORIDE ER 10 MEQ TAB.ER.PRT PO SCH ×2 (07:32→21:40)
[2021-02-11] MEDS: DOCUSATE 100 MG CAP PO SCH (07:32)
[2021-02-11] MEDS: GABAPENTIN 300 MG CAP PO SCH ×2 (07:33→21:39)
[2021-02-11] MEDS: MAGNESIUM OXIDE 400 MG TAB PO SCH ×2 (07:33→21:39)
[2021-02-11] MEDS: HEPARIN SODIUM,PORCINE/PF 5,000 UNIT/0.5 ML SYRINGE SQ SCH ×3 (07:33→21:40)
[2021-02-11] MEDS: SIMETHICONE 40 MG/0.6 ML DROPS 2,000 MG/30 ML BOTTLE PO SCH ×4 (07:33→21:40)
[2021-02-11] MEDS: SODIUM CHLORIDE 0.9% 1,000 ML IV SCH ×2 (07:44→16:53)
[2021-02-11] MEDS: IPRATROPIUM-ALBUTEROL 3 ML NEB INHALATION SCH ×4 (07:46→19:56)
[2021-02-11] MEDS ORDERED: Magnesium Replacement Protocol 1 EACH MISC MISCELLANE PRN (08:38)
--- NOTE | 2021-02-11 08:51 | XR ---
EXAMINATION TYPE: XR chest 2V DATE OF EXAM: 02/11/2021 COMPARISON: Chest x-ray 02/09/2021 HISTORY: Hypoxia TECHNIQUE: Frontal and lateral views of the chest are obtained. FINDINGS: Right-sided Port-A-Cath is stable. There are overlying artifacts. Cardiac mediastinal silh ouette is unchanged. No evident pneumothorax. There is elevation of left hemidiaphragm, blunting of t he left greater than right costophrenic angles. Patchy densities present at the lung bases. Aorta is dense. Prominent lung volumes with flattening the hemidiaphragms consistent with underlying COPD note d. Gas distended loop of colon noted in the left upper quadrant. IMPRESSION: Correlate for basilar atelectasis versus pneumonia and possible associated effusion, add itional findings above
[2021-02-11] MEDS: MAGNESIUM SULFATE-D5W PMX 1 GM in DEXTROSE/WATER 1 100ML.BAG IVPB SCH ×2 (10:43→11:56)
[2021-02-11 12:35] LABS: Glucose,Whole Blood 149 mg/dL (75-99)
--- NOTE | 2021-02-11 12:36 | P.PN ---
Subjective Progress Note Date: 02/11/21 This is a 65-year-old female who presented to the hospital with chronic abdominal pain and shortness of breath with a known history of pancreatic cancer status post chemotherapy. 02/10/2021 Patient is evaluated today sitting up in the bed eating. Her blood sugar was 31 with her a.m. labs, stat Accu-Chek once labs came back was 96. Additional labs today show a white count of 26.8, hemoglobin 7.9, neutrophils 26.5, sodium 132, chloride 110, CO2 17, creatinine 1.08, calcium 6.9, mag 1.6, AST 47, ALT 17, alk phos 295, protein 4.6, albumin 1.7. Procalcitonin elevated at 20.80. We did advance her diet to full liquid as tolerated and can advance. We'll replace K per protocol. Blood pressure meds, lisinopril and amlodipine, were stopped today as she was hypotensive this morning 82/50. Sodium is most likely related to dehydration. It is felt patient's hypoxemia is mostly related to show respirations due to acute abdominal pain and underlying COPD, we did order an incentive spirometer for her. Prognosis is extremely guarded for this patient, as she continues to have frequent admissions for this acute abdominal pain however she is noncompliant with her pain management at home. Patient continues to smoke half a pack of cigarettes per day, and has poor oral intake. 02/11/2021 Patient is evaluated today resting in bed. She is tearful during my examination due to her overall health condition. She states that overall she is feeling better, she denies any shortness of breath or cough. She says that her abdominal pain is about a 3 out of 10 right now, which is an improvement from previous. There is no abdominal tenderness. She is now 100% on room air. Patient is afebrile, heart rate 92, blood pressure 124/86. Labs today show white count of 12.8, hemoglobin 7.8, neutrophils 11.5, sodium 134, potassium 4.2, chloride 112, CO2 18. Her BUN is 11 and creatinine is 0.70 which is imp roved. Sugars in the 140s. Magnesium 1.7, replace per protocol. Covid PCR was negative 2, influenza A/B and RSV are all negative. Blood cultures were taken yesterday and are currently pending. Chest x-ray today shows to correlate for basilar atelectasis versus pneumonia and possible associated effusion, on IV rocephin. ROS Constitutional: Denied any fatigue denied any fever. Cardio vascular: denied any chest pain, palpitations Gastrointestinal denied any nausea vomiting, denies diarrhea. Reports [id number] abdominal pain, tolerating a clear to full liquid diet. Pulmonary: Denied any shortness of breath cough Neurologic denied any new focal deficits All inpatient medications were reviewed and appropriate changes in these medications as dictated in the interval history and assessment and plan. PHYSICAL EXAMINATION: GENERAL: The patient is alert and oriented x3, not in any acute distress. Well developed, patient appears fatigued, however she is more awake than yesterday. She is cachetic appearing. HEENT: Pupils are round and equally reacting to light. EOMI. No scleral icterus. No conjunctival pallor. Normocephalic, atraumatic. No pharyngeal erythema. No thyromegaly. CARDIOVASCULAR: S1 and S2 present. No murmurs, rubs, or gallops. PULMONARY: Chest is clear to auscultation, no wheezing or crackles. There is decreased aeration, posterior all lung mccrary. ABDOMEN: Soft, nontender, nondistended, normoactive bowel sounds. No palpable organomegaly. MUSCULOSKELETAL: No joint swelling or deformity. EXTREMITIES: No cyanosis, clubbing, or pedal edema. NEUROLOGICAL: Gross neurological examination did not reveal any focal deficits. SKIN: No rashes. Assessment and plan Assessment Acute abdominal pain, possibly due to acute on chronic pancreatitis, and known h istory of pancreatic cancer Possible left lower lobe infiltrate and pneumonia with sepsis, present on admission Hypoxia secondary to shallow respirations from abdominal pain, underlying COPD, and possible pneumonia, improved on room air now Hypotension, secondary to dehydration, possible sepsis, improving Acute kidney injury, most likely acute tubular necrosis s/t hypotension, resolved with hydration Hypoglycemia, resolved, now hyperglycemic Elevated procalcitonin, 20.8 Pancreatic cancer, s/p chemotherapy Leukocytosis s/t above, improving Malnutrition Anemia of chronic disease, and chronic gastrointestinal bleed Hyponatremia due to dehydration and poor oral intake, improving Hypokalemia due to dehydration and poor oral intake, repleted hypomagnesemia due to dehydration and poor oral intake History of Hypertension Hyperlipidemia History of COPD, not in acute exacerbation Chronic nicotine dependence; 1/2 PPD History of marijuana use Remote history of ETOH GI Prophylaxis : Protonix DVT Prophylaxis: Subcu heparin FULL CODE Plan Continue with IV fluids, BP meds on hold Accuchecks ACHS Continue to encourage IS Advance Diet as tolerated, dietary consult, magic cup with meals Pain management Blood cultures pending, continue on empiric antibiotics Replace magnesium Repeat Labs in the AM PT/OT Continue all other supportive care, extremely guarded prognosis. Objective - Vital Signs Vital signs: Vital Signs Temp 98 F 02/11/21 04:36 Pulse 92 02/11/21 04:36 Resp 18 02/11/21 04:36 BP 124/86 02/11/21 04:36 Pulse Ox 100 02/11/21 04:36 Intake & Output 02/10/21 02/11/21 02/11/21 18:59 06:59 18:59 Intake Total 1530 250 Output Total 300 Balance 1530 -50 Weight 37.603 kg Intake: Intake, IV Titration 1050 Amount Sodium Chloride 0.9% 1, 1000 000 ml @ 100 mls/hr IV . Q10H [facility] Rx#:[id number] cefTRIAXone 1 gm In 50 Sodium Chloride 0.9% 50 ml @ 100 mls/hr IVPB Q24H [facility] Rx#:[id number] Oral 480 250 Output: Urine 300 Other: # Voids 2 - Labs CBC & Chem 7: 02/11/21 05:17 02/11/21 05:17 Labs: Abnormal Lab Results - Last 24 Hours (Table) 02/10/21 02/10/21 02/10/21 Range/Units 05:58 05:58 11:15 WBC 30.1 H 26.8 H (3.8-10.6) k/uL RBC 3.09 L 2.82 L (3.80-5.40) m/uL Hgb 8.7 L 7.9 L (11.4-16.0) gm/dL Hct 28.6 L 24.6 L (34.0-46.0) % MCHC 30.3 L (31.0-37.0) g/dL RDW 20.7 H 21.0 H (11.5-15.5) % Plt Count (150-450) k/uL Neutrophils # (1.3-7.7) k/uL Neutrophils # (Manual) 28.80 H 26.50 H (1.3-7.7) k/uL Lymphocytes # (1.0-4.8) k/uL Lymphocytes # (Manual) 0.30 L 0.27 L (1.0-4.8) k/uL Metamyelocytes # (Man) 0.60 H 0.27 H (0) k/uL Myelocytes # (Manual) 0.60 H (0) k/uL Sodium 136 L (137-145) mmol/L Chloride 111 H (98-107) mmol/L Carbon Dioxide 13 L (22-30) mmol/L Creatinine (0.52-1.04) mg/dL Glucose 31 L* (74-99) mg/dL POC Glucose (mg/dL) (75-99) mg/dL Calcium 7.0 L (8.4-10.2) mg/dL AST (14-36) U/L Alkaline Phosphatase (38-126) U/L Total Protein (6.3-8.2) g/dL Albumin (3.5-5.0) g/dL Procalcitonin (0.02-0.09) ng/mL Urine Appearance (Clear) Urine Protein (Negative) Urine Blood (Negative) Urine Bacteria (None) /hpf Hyaline Casts (0-2) /lpf Urine Mucus (None) /hpf 02/10/21 02/10/21 02/10/21 Range/Units 11:15 11:16 12:45 WBC (3.8-10.6) k/uL RBC (3.80-5.40) m/uL Hgb (11.4-16.0) gm/dL Hct (34.0-46.0) % MCHC (31.0-37.0) g/dL RDW (11.5-15.5) % Plt Count (150-450) k/uL Neutrophils # (1.3-7.7) k/uL Neutrophils # (Manual) (1.3-7.7) k/uL Lymphocytes # (1.0-4.8) k/uL Lymphocytes # (Manual) (1.0-4.8) k/uL Metamyelocytes # (Man) (0) k/uL Myelocytes # (Manual) (0) k/uL Sodium 132 L (137-145) mmol/L Chloride 110 H (98-107) mmol/L Carbon Dioxide 17 L (22-30) mmol/L Creatinine 1.08 H (0.52-1.04) mg/dL Glucose 115 H (74-99) mg/dL POC Glucose (mg/dL) 185 H (75-99) mg/dL Calcium 6.9 L (8.4-10.2) mg/dL AST 47 H (14-36) U/L Alkaline Phosphatase 295 H (38-126) U/L Total Protein 4.6 L (6.3-8.2) g/dL Albumin 1.7 L (3.5-5.0) g/dL Procalcitonin 20.80 H (0.02-0.09) ng/mL Urine Appearance (Clear) Urine Protein (Negative) Urine Blood (Negative) Urine Bacteria (None) /hpf Hyaline Casts (0-2) /lpf Urine Mucus (None) /hpf 02/10/21 02/10/21 02/10/21 Range/Units 17:28 20:13 20:57 WBC (3.8-10.6) k/uL RBC (3.80-5.40) m/uL Hgb (11.4-16.0) gm/dL Hct (34.0-46.0) % MCHC (31.0-37.0) g/dL RDW (11.5-15.5) % Plt Count (150-450) k/uL Neutrophils # (1.3-7.7) k/uL Neutrophils # (Manual) (1.3-7.7) k/uL Lymphocytes # (1.0-4.8) k/uL Lymphocytes # (Manual) (1.0-4.8) k/uL Metamyelocytes # (Man) (0) k/uL Myelocytes # (Manual) (0) k/uL Sodium (137-145) mmol/L Chloride (98-107) mmol/L Carbon Dioxide (22-30) mmol/L Creatinine (0.52-1.04) mg/dL Glucose (74-99) mg/dL POC Glucose (mg/dL) 172 H 154 H (75-99) mg/dL Calcium (8.4-10.2) mg/dL AST (14-36) U/L Alkaline Phosphatase (38-126) U/L Total Protein (6.3-8.2) g/dL Albumin (3.5-5.0) g/dL Procalcitonin (0.02-0.09) ng/mL Urine Appearance Cloudy H (Clear) Urine Protein 1+ H (Negative) Urine Blood Trace H (Negative) Urine Bacteria Rare H (None) /hpf Hyaline Casts 18 H (0-2) /lpf Urine Mucus Rare H (None) /hpf 02/11/21 02/11/21 02/11/21 Range/Units 05:17 05:17 07:21 WBC 12.8 H (3.8-10.6) k/uL RBC 2.74 L (3.80-5.40) m/uL Hgb 7.8 L (11.4-16.0) gm/dL Hct 24.1 L (34.0-46.0) % MCHC (31.0-37.0) g/dL RDW 21.2 H (11.5-15.5) % Plt Count 103 L (150-450) k/uL Neutrophils # 11.5 H (1.3-7.7) k/uL Neutrophils # (Manual) (1.3-7.7) k/uL Lymphocytes # 0.9 L (1.0-4.8) k/uL Lymphocytes # (Manual) (1.0-4.8) k/uL Metamyelocytes # (Man) (0) k/uL Myelocytes # (Manual) (0) k/uL Sodium 134 L (137-145) mmol/L Chloride 112 H (98-107) mmol/L Carbon Dioxide 18 L (22-30) mmol/L Creatinine (0.52-1.04) mg/dL Glucose 162 H (74-99) mg/dL POC Glucose (mg/dL) 141 H (75-99) mg/dL Calcium 7.1 L (8.4-10.2) mg/dL AST (14-36) U/L Alkaline Phosphatase (38-126) U/L Total Protein (6.3-8.2) g/dL Albumin (3.5-5.0) g/dL Procalcitonin (0.02-0.09) ng/mL Urine Appearance (Clear) Urine Protein (Negative) Urine Blood (Negative) Urine Bacteria (None) /hpf Hyaline Casts (0-2) /lpf Urine Mucus (None) /hpf Assessment and Plan Time with Patient: Greater than 30
--- NOTE | 2021-02-11 13:37 | P.PN ---
Subjective Progress Note Date: 02/11/21 65-year-old black female, with history of chronic pancreatitis, and pancreatic cancer, currently undergoing chemoradiation. The patient apparently presents to the emergency department on February 08, complaining of abdominal pain. The patient was seen on February 08, and we are consulted this morning for hypoxemic respiratory failure. The patient appears to be very frail and weak. She is lying half on the bed and half off the bed. She's not really able to give much of a history. Does not appear to be in any significant respiratory distress. She just on 2 L nasal cannula. The abdominal pain is being evaluated by the primary service, and also by medical oncology. She apparently has a history of pancreatic cancer, gastroesophageal reflux disease, hyperlipidemia, hypertension, osteoarthritis, and pancreatitis. She does have a history of ongoing tobacco use. White count 30.1, hemoglobin 8.7, hematocrit 28.6, and platelet count 196,000. Blood gases were done yesterday showed a pO2 of 137, pCO2 21, and a pH 7.51. This blood gases consistent with a respiratory alkalosis. Sodium 136, potassium 4.1, chlorides 111, CO2 13, anion gap 12, BUN 8, and creatinine 0.97. Testing for martinez virus was negative. Chest x-rays are consistent with changes of COPD, and some mild basilar atelectasis. The patient is seen today February 08 in follow-up on the regular medical floor. She is currently sitting up in a chair at the bedside. Awake and alert in no acute distress. Denies any worsening shortness of breath, cough or congestion. She is on 4 L nasal cannula with O2 saturations in the high 90s. She's been afebrile. Hemodynamically stable. Her chest continue the use the i ncentive spirometer. Continue bronchodilators. Objective - Vital Signs Vital signs: Vital Signs Temp 97.5 F L 02/11/21 12:25 Pulse 79 02/11/21 12:25 Resp 18 02/11/21 12:25 BP 122/88 02/11/21 12:25 Pulse Ox 94 L 02/11/21 12:25 Intake & Output 02/10/21 02/11/21 02/11/21 18:59 06:59 18:59 Intake Total 1530 250 Output Total 300 Balance 1530 -50 Weight 37.603 kg Intake: Intake, IV Titration 1050 Amount Sodium Chloride 0.9% 1, 1000 000 ml @ 100 mls/hr IV . Q10H [facility] Rx#:[id number] cefTRIAXone 1 gm In 50 Sodium Chloride 0.9% 50 ml @ 100 mls/hr IVPB Q24H [facility] Rx#:[id number] Oral 480 250 Output: Urine 300 Other: # Voids 2 - Exam GENERAL EXAM: Alert, pleasant 65-year-old female patient, cachectic, on 4 L nasal cannula comfortable in no apparent distress. HEAD: Normocephalic. EYES: Normal reaction of pupils, equal size. NOSE: Clear with pink turbinates. THROAT: No erythema or exudates. NECK: No masses, no JVD. CHEST: Right medi port in place. No chest wall deformity. LUNGS: Equal air entry with no crackles, wheeze, rhonchi or dullness. CVS: S1 and S2 normal with no audible murmur, regular rhythm. ABDOMEN: No hepatosplenomegaly, normal bowel sounds, no guarding or rigidity. SPINE: No scoliosis or deformity SKIN: No rashes CENTRAL NERVOUS SYSTEM: No focal deficits, tone is normal in all 4 extremities. EXTREMITIES: There is no peripheral edema. No clubbing, no cyanosis. Peripheral pulses are intact. - Labs CBC & Chem 7: 02/11/21 05:17 02/11/21 05:17 Labs: Abnormal Lab Results - Last 24 Hours (Table) 02/10/21 02/10/21 02/10/21 Range/Units 05:58 11:15 11:16 WBC (3.8-10.6) k/uL RBC (3.80-5.40) m/uL Hgb (11.4-16.0) gm/dL Hct (34.0-46.0) % RDW (11.5-15.5) % Plt Count (150-450) k/uL Neutrophils # (1.3-7.7) k/uL Neutrophils # (Manual) 28.80 H 26.50 H (1.3-7.7) k/uL Lymphocytes # (1.0-4.8) k/uL Lymphocytes # (Manual) 0.30 L 0.27 L (1.0-4.8) k/uL Metamyelocytes # (Man) 0.60 H 0.27 H (0) k/uL Myelocytes # (Manual) 0.60 H (0) k/uL Sodium (137-145) mmol/L Chloride (98-107) mmol/L Carbon Dioxide (22-30) mmol/L Glucose (74-99) mg/dL POC Glucose (mg/dL) (75-99) mg/dL Calcium (8.4-10.2) mg/dL Procalcitonin 20.80 H (0.02-0.09) ng/mL Urine Appearance (Clear) Urine Protein (Negative) Urine Blood (Negative) Urine Bacteria (None) /hpf Hyaline Casts (0-2) /lpf Urine Mucus (None) /hpf 02/10/21 02/10/21 02/10/21 Range/Units 17:28 20:13 20:57 WBC (3.8-10.6) k/uL RBC (3.80-5.40) m/uL Hgb (11.4-16.0) gm/dL Hct (34.0-46.0) % RDW (11.5-15.5) % Plt Count (150-450) k/uL Neutrophils # (1.3-7.7) k/uL Neutrophils # (Manual) (1.3-7.7) k/uL Lymphocytes # (1.0-4.8) k/uL Lymphocytes # (Manual) (1.0-4.8) k/uL Metamyelocytes # (Man) (0) k/uL Myelocytes # (Manual) (0) k/uL Sodium (137-145) mmol/L Chloride (98-107) mmol/L Carbon Dioxide (22-30) mmol/L Glucose (74-99) mg/dL POC Glucose (mg/dL) 172 H 154 H (75-99) mg/dL Calcium (8.4-10.2) mg/dL Procalcitonin (0.02-0.09) ng/mL Urine Appearance Cloudy H (Clear) Urine Protein 1+ H (Negative) Urine Blood Trace H (Negative) Urine Bacteria Rare H (None) /hpf Hyaline Casts 18 H (0-2) /lpf Urine Mucus Rare H (None) /hpf 02/11/21 02/11/21 02/11/21 Range/Units 05:17 05:17 07:21 WBC 12.8 H (3.8-10.6) k/uL RBC 2.74 L (3.80-5.40) m/uL Hgb 7.8 L (11.4-16.0) gm/dL Hct 24.1 L (34.0-46.0) % RDW 21.2 H (11.5-15.5) % Plt Count 103 L (150-450) k/uL Neutrophils # 11.5 H (1.3-7.7) k/uL Neutrophils # (Manual) (1.3-7.7) k/uL Lymphocytes # 0.9 L (1.0-4.8) k/uL Lymphocytes # (Manual) (1.0-4.8) k/uL Metamyelocytes # (Man) (0) k/uL Myelocytes # (Manual) (0) k/uL Sodium 134 L (137-145) mmol/L Chloride 112 H (98-107) mmol/L Carbon Dioxide 18 L (22-30) mmol/L Glucose 162 H (74-99) mg/dL POC Glucose (mg/dL) 141 H (75-99) mg/dL Calcium 7.1 L (8.4-10.2) mg/dL Procalcitonin (0.02-0.09) ng/mL Urine Appearance (Clear) Urine Protein (Negative) Urine Blood (Negative) Urine Bacteria (None) /hpf Hyaline Casts (0-2) /lpf Urine Mucus (None) /hpf 02/11/ Range/Units 12:34 WBC (3.8-10.6) k/uL RBC (3.80-5.40) m/uL Hgb (11.4-16.0) gm/dL Hct (34.0-46.0) % RDW (11.5-15.5) % Plt Count (150-450) k/uL Neutrophils # (1.3-7.7) k/uL Neutrophils # (Manual) (1.3-7.7) k/uL Lymphocytes # (1.0-4.8) k/uL Lymphocytes # (Manual) (1.0-4.8) k/uL Metamyelocytes # (Man) (0) k/uL Myelocytes # (Manual) (0) k/uL Sodium (137-145) mmol/L Chloride (98-107) mmol/L Carbon Dioxide (22-30) mmol/L Glucose (74-99) mg/dL POC Glucose (mg/dL) 149 H (75-99) mg/dL Calcium (8.4-10.2) mg/dL Procalcitonin (0.02-0.09) ng/mL Urine Appearance (Clear) Urine Protein (Negative) Urine Blood (Negative) Urine Bacteria (None) /hpf Hyaline Casts (0-2) /lpf Urine Mucus (None) /hpf Assessment and Plan Assessment: 1 Mild hypoxemia, likely related to patient not taking deep breaths, as well as underlying COPD. 2 History of pancreatic cancer, currently undergoing chemotherapy. 3 Pancreatitis, chronic. 4 History of gastroesophageal reflux disease. 5 History of hyperlipidemia. 6 History of hypertension. 7 History of osteoarthritis. 8 History of ongoing tobacco use. 9 History of anxiety/depression. Plan: The patient was seen and evaluated Currently stable from the pulmonary standpoint Titrate the FiO2 as tolerated Continue breathing treatments and incentive spirometer We will continue to follow I, the cosigning physician, performed a history & physical examination of the patient. Lungs sounds are clear. Maintaining good O2 saturations in the 90s on 4 L/m per nasal cannula. I discussed the assessment and plan of care with my nurse practitioner, Mechelle Hay. I attest to the above note as dictated by her.
[2021-02-11] MEDS: INSULIN ASPART (NovoLOG) 100 UNIT/ML VIAL SQ SCH ×3 (14:03→21:40)
[2021-02-11 17:29] LABS: Glucose,Whole Blood 112 mg/dL (75-99)
--- NOTE | 2021-02-11 20:28 | P.PN ---
Subjective Progress Note Date: 02/11/21 Principal diagnosis: pancreatic cancer She is more awake today and anxious to go home. Objective - Vital Signs Vital signs: Vital Signs Temp 97.5 F L 02/11/21 12:25 Pulse 96 02/11/21 20:07 Resp 18 02/11/21 12:25 BP 122/88 02/11/21 12:25 Pulse Ox 100 02/11/21 15:56 Intake & Output 02/11/21 02/11/21 02/12/21 06:59 18:59 06:59 Intake Total 250 Output Total 300 Balance -50 Intake: Oral 250 Output: Urine 300 Other: Voiding Method Toilet Toilet # Voids 3 - Exam Cachetic, shakey, weak NAD No increased effort in respirations, diminished on auscultation Heart: tachy Abd: Flat, tender no edema - Labs CBC & Chem 7: 02/11/21 05:17 02/11/21 05:17 Labs: Abnormal Lab Results - Last 24 Hours (Table) 02/10/21 02/11/21 02/11/21 Range/Units 20:57 05:17 05:17 WBC 12.8 H (3.8-10.6) k/uL RBC 2.74 L (3.80-5.40) m/uL Hgb 7.8 L (11.4-16.0) gm/dL Hct 24.1 L (34.0-46.0) % RDW 21.2 H (11.5-15.5) % Plt Count 103 L (150-450) k/uL Neutrophils # 11.5 H (1.3-7.7) k/uL Lymphocytes # 0.9 L (1.0-4.8) k/uL Sodium 134 L (137-145) mmol/L Chloride 112 H (98-107) mmol/L Carbon Dioxide 18 L (22-30) mmol/L Glucose 162 H (74-99) mg/dL POC Glucose (mg/dL) (75-99) mg/dL Calcium 7.1 L (8.4-10.2) mg/dL Urine Appearance Cloudy H (Clear) Urine Protein 1+ H (Negative) Urine Blood Trace H (Negative) Urine Bacteria Rare H (None) /hpf Hyaline Casts 18 H (0-2) /lpf Urine Mucus Rare H (None) /hpf 11/23/21 11/23/21 11/23/21 Range/Units 07:21 12:34 17:28 WBC (3.8-10.6) k/uL RBC (3.80-5.40) m/uL Hgb (11.4-16.0) gm/dL Hct (34.0-46.0) % RDW (11.5-15.5) % Plt Count (150-450) k/uL Neutrophils # (1.3-7.7) k/uL Lymphocytes # (1.0-4.8) k/uL Sodium (137-145) mmol/L Chloride (98-107) mmol/L Carbon Dioxide (22-30) mmol/L Glucose (74-99) mg/dL POC Glucose (mg/dL) 141 H 149 H 112 H (75-99) mg/dL Calcium (8.4-10.2) mg/dL Urine Appearance (Clear) Urine Protein (Negative) Urine Blood (Negative) Urine Bacteria (None) /hpf Hyaline Casts (0-2) /lpf Urine Mucus (None) /hpf Microbiology - Last 24 Hours (Table) 02/10/21 11:15 Blood Culture - Preliminary Blood No Growth after 24 hours 02/10/21 11:25 Blood Culture - Preliminary Blood No Growth after 24 hours Assessment and Plan (1) Pneumonia Current Visit: Yes Status: Acute Code(s): J18.9 - PNEUMONIA, UNSPECIFIED ORGANISM SNOMED Code(s): 212207493 (2) Malnutrition Current Visit: No Status: Acute Code(s): E46 - UNSPECIFIED PROTEIN-CALORIE MALNUTRITION SNOMED Code(s): 00452458 (3) Pancreatic cancer Current Visit: No Status: Acute Priority: High Code(s): C25.9 - MALIGNANT NEOPLASM OF PANCREAS, UNSPECIFIED SNOMED Code(s): 404164374 Plan: Blood Cultures negative at 24 hours She is tolerating PO intake Monitor CBC, CMP Re-discussed the importance of adequate intake, using her pancreatic enzymes and maintaining weight. With her persistent weight loss she will need to remain adherent to enzymes, she is anxious and will likely require re-discussion Physician Attest: I have completed the full history and physical and agree with above dictation, dictated as a ascribe
[2021-02-11 21:18] LABS: Glucose,Whole Blood 124 mg/dL (75-99)
[2021-02-12] MEDS: SODIUM CHLORIDE 0.9% 1,000 ML IV SCH ×2 (04:29→12:46)
[2021-02-12 04:53] VITALS: TEMP 97.5
[2021-02-12] MEDS: HYDROmorphone 0.5 MG/0.5 ML SYRINGE IVP PRN (05:20)
[2021-02-12 06:29] LABS: Mycoplasma IgG Antibody (EIA) 2.64 INDEX (<=0.90); Mycoplasma IgM Antibody 0.54 INDEX (<=0.90)
[2021-02-12 07:01] LABS: Anisocytosis Moderate; Basophils % (A) 0 %; Eosinophils % (A) 0 %; HCT 23.7 % (34.0-46.0); HGB 7.2 gm/dL (11.4-16.0); Hypochromasia Moderate; Lymphocytes # (A) 0.8 k/uL (1.0-4.8); Lymphocytes % (A) 12 %; MCH 27.5 pg (25.0-35.0); MCHC 30.6 g/dL (31.0-37.0); Mean Platelet Volume 12.3; Monocytes # (A) 0.2 k/uL (0-1.0); Monocytes % (A) 2 %; Neutrophils # (A) 6.1 k/uL (1.3-7.7); Neutrophils % (A) 85 %; RBC 2.63 m/uL (3.80-5.40); RDW 21.1 % (11.5-15.5); WBC 7.2 k/uL (3.8-10.6)
[2021-02-12 07:37] LABS: Glucose,Whole Blood 116 mg/dL (75-99)
[2021-02-12] MEDS: IPRATROPIUM-ALBUTEROL 3 ML NEB INHALATION SCH ×3 (07:50→15:50)
[2021-02-12] MEDS: INSULIN ASPART (NovoLOG) 100 UNIT/ML VIAL SQ SCH ×3 (08:01→17:22)
[2021-02-12] MEDS: DOCUSATE 100 MG CAP PO SCH (08:41)
[2021-02-12] MEDS: POTASSIUM CHLORIDE ER 10 MEQ TAB.ER.PRT PO SCH (08:41)
[2021-02-12] MEDS: MAGNESIUM OXIDE 400 MG TAB PO SCH (08:41)
[2021-02-12] MEDS: HEPARIN SODIUM,PORCINE/PF 5,000 UNIT/0.5 ML SYRINGE SQ SCH (08:42)
[2021-02-12] MEDS: SIMETHICONE 40 MG/0.6 ML DROPS 2,000 MG/30 ML BOTTLE PO SCH ×3 (08:42→17:23)
[2021-02-12] MEDS: GABAPENTIN 300 MG CAP PO SCH (08:42)
[2021-02-12 09:59] LABS: African American GFR (CKD) 119.2 (60.0-200.0); Albumin 1.7 g/dL (3.8-4.9); Albumin/Globulin Ratio 0.66 (1.60-3.17); Anion Gap 9.8 mmol/L (10.00-18.00); BUN/Creat Ratio 14.07 Ratio (12.00-20.00); Blood Urea Nitrogen 6.8 mg/dL (9.0-27.0); Calcium 7.2 mg/dL (8.7-10.3); Carbon Dioxide 15.3 mmol/L (20.0-27.5); Globulin 2.5 g/dL (1.6-3.3); Magnesium 2.1 mg/dL (1.5-2.4); Non-African American GFR(CKD) 102.9 (60.0-200.0); Potassium 4.7 mmol/L (3.5-5.5); Total Bilirubin 0.5 mg/dL (0.30-1.20); Total Protein 4.2 g/dL (6.2-8.2)
[2021-02-12 10:00] LABS: Target Cells Present
[2021-02-12 10:01] LABS: Poikilocytosis (M) Present
[2021-02-12 10:03] LABS: Platelet Count 70 k/uL (150-450)
[2021-02-12 12:31] LABS: Glucose,Whole Blood 173 mg/dL (75-99)
[2021-02-12] MEDS: HYDROcodone/APAP 5-325MG 1 EACH TAB PO PRN (12:46)
[2021-02-12 12:53] VITALS: BP 121/74; RESP 17
[2021-02-12] MEDS ORDERED: LACTULOSE 20 GM/30 ML CUP PO ONE (13:00)
--- NOTE | 2021-02-12 13:10 | P.PN ---
Subjective Progress Note Date: 02/12/21 Principal diagnosis: pancreatic cancer Feeling better and ready for home. We discussed holding next treatment tilll seen in office Objective - Vital Signs Vital signs: Vital Signs Temp 97.5 F L 02/12/21 12:52 Pulse 77 02/12/21 12:52 Resp 17 02/12/21 12:52 BP 121/74 02/12/21 12:52 Pulse Ox 100 02/12/21 12:52 Intake & Output 02/11/21 02/12/21 02/12/21 18:59 06:59 18:59 Intake Total 900 Balance 900 Intake: Oral 900 Other: Voiding Method Toilet Toilet # Voids 3 4 - Exam Cachetic, shakey, weak NAD No increased effort in respirations, diminished on auscultation Heart: tachy Abd: Flat, tender no edema - Labs CBC & Chem 7: 02/12/21 06:01 02/12/21 06:01 Labs: Abnormal Lab Results - Last 24 Hours (Table) 02/11/21 02/11/21 02/11/21 Range/Units 05:17 17:28 21:07 RBC (3.80-5.40) m/uL Hgb (11.4-16.0) gm/dL Hct (34.0-46.0) % MCHC (31.0-37.0) g/dL RDW (11.5-15.5) % Plt Count (150-450) k/uL Lymphocytes # (1.0-4.8) k/uL Chloride (96-109) mmol/L Carbon Dioxide (20.0-27.5) mmol/L Anion Gap (10.00-18.00) mmol/L BUN (9.0-27.0) mg/dL Creatinine (0.6-1.5) mg/dL Glucose (70-110) mg/dL POC Glucose (mg/dL) 112 H 124 H (75-99) mg/dL Calcium (8.7-10.3) mg/dL Alkaline Phosphatase (41-126) U/L Total Protein (6.2-8.2) g/dL Albumin (3.8-4.9) g/dL Albumin/Globulin Ratio (1.60-3.17) g/dL Mycoplasma pneumon IgG 2.64 H (<=0.90) INDEX 02/12/21 02/12/21 02/12/21 Range/Units 06:01 06:01 07:36 RBC 2.63 L (3.80-5.40) m/uL Hgb 7.2 L (11.4-16.0) gm/dL Hct 23.7 L (34.0-46.0) % MCHC 30.6 L (31.0-37.0) g/dL RDW 21.1 H (11.5-15.5) % Plt Count 70 L (150-450) k/uL Lymphocytes # 0.8 L (1.0-4.8) k/uL Chloride 110 H (96-109) mmol/L Carbon Dioxide 15.3 L (20.0-27.5) mmol/L Anion Gap 9.80 L (10.00-18.00) mmol/L BUN 6.8 L (9.0-27.0) mg/dL Creatinine 0.5 L (0.6-1.5) mg/dL Glucose 126 H (70-110) mg/dL POC Glucose (mg/dL) 116 H (75-99) mg/dL Calcium 7.2 L (8.7-10.3) mg/dL Alkaline Phosphatase 278 H (41-126) U/L Total Protein 4.2 L (6.2-8.2) g/dL Albumin 1.7 L (3.8-4.9) g/dL Albumin/Globulin Ratio 0.66 L (1.60-3.17) g/dL Mycoplasma pneumon IgG (<=0.90) INDEX 02/12/21 Range/Units 12:30 RBC (3.80-5.40) m/uL Hgb (11.4-16.0) gm/dL Hct (34.0-46.0) % MCHC (31.0-37.0) g/dL RDW (11.5-15.5) % Plt Count (150-450) k/uL Lymphocytes # (1.0-4.8) k/uL Chloride (96-109) mmol/L Carbon Dioxide (20.0-27.5) mmol/L Anion Gap (10.00-18.00) mmol/L BUN (9.0-27.0) mg/dL Creatinine (0.6-1.5) mg/dL Glucose (70-110) mg/dL POC Glucose (mg/dL) 173 H (75-99) mg/dL Calcium (8.7-10.3) mg/dL Alkaline Phosphatase (41-126) U/L Total Protein (6.2-8.2) g/dL Albumin (3.8-4.9) g/dL Albumin/Globulin Ratio (1.60-3.17) g/dL Mycoplasma pneumon IgG (<=0.90) INDEX Microbiology - Last 24 Hours (Table) 02/10/21 11:15 Blood Culture - Preliminary Blood No Growth after 24 hours 02/10/21 11:25 Blood Culture - Preliminary Blood No Growth after 24 hours Assessment and Plan (1) Pneumonia Current Visit: Yes Status: Acute Code(s): J18.9 - PNEUMONIA, UNSPECIFIED ORGANISM SNOMED Code(s): 434994841 (2) Malnutrition Current Visit: No Status: Acute Code(s): E46 - UNSPECIFIED PROTEIN-CALORIE MALNUTRITION SNOMED Code(s): 45028942 (3) Pancreatic cancer Current Visit: No Status: Acute Priority: High Code(s): C25.9 - MALIGNANT NEOPLASM OF PANCREAS, UNSPECIFIED SNOMED Code(s): 209493167 Plan: Blood Cultures negative at 24 hours She is tolerating PO intake Monitor CBC, CMP Re-discussed the importance of adequate intake, using her pancreatic enzymes and maintaining weight. With her persistent weight loss she will need to remain adherent to enzymes, she is anxious and will likely require re-discussion Discussed with nursing and primary team and ok for discharge. Appointment net week with has been added to discharge.
--- NOTE | 2021-02-12 15:46 | P.PN ---
Subjective Progress Note Date: 02/12/21 65-year-old black female, with history of chronic pancreatitis, and pancreatic cancer, currently undergoing chemoradiation. The patient apparently presents to the emergency department on February 08, complaining of abdominal pain. The patient was seen on February 08, and we are consulted this morning for hypoxemic respiratory failure. The patient appears to be very frail and weak. She is lying half on the bed and half off the bed. She's not really able to give much of a history. Does not appear to be in any significant respiratory distress. She just on 2 L nasal cannula. The abdominal pain is being evaluated by the primary service, and also by medical oncology. She apparently has a history of pancreatic cancer, gastroesophageal reflux disease, hyperlipidemia, hypertension, osteoarthritis, and pancreatitis. She does have a history of ongoing tobacco use. White count 30.1, hemoglobin 8.7, hematocrit 28.6, and platelet count 196,000. Blood gases were done yesterday showed a pO2 of 137, pCO2 21, and a pH 7.51. This blood gases consistent with a respiratory alkalosis. Sodium 136, potassium 4.1, chlorides 111, CO2 13, anion gap 12, BUN 8, and creatinine 0.97. Testing for martinez virus was negative. Chest x-rays are consistent with changes of COPD, and some mild basilar atelectasis. The patient is seen today February 11, 2021 in follow-up on the regular medical floor. She is currently sitting up in a chair at the bedside. Awake and alert in no acute distress. Denies any worsening shortness of breath, cough or congestion. She is on 4 L nasal cannula with O2 saturations in the high 90s. She's been afebrile. Hemodynamically stable. Her chest continue the use the in centive spirometer. Continue bronchodilators. The patient is seen today 02/12/2021 in follow-up on the regular medical floor. She is currently sitting up in bed. Awake and alert in no acute distress. She denies any shortness of breath, cough or congestion. No fever chills. She is maintaining O2 saturations at 100% on room air. Afebrile. Hemodynamically stable. Blood cultures revealed no growth. White count 7.2. Hemoglobin 7.2. Platelets 70,000. Sodium 135. Potassium 4.7. Creatinine 0.5. Glucose 186. Remains on DuoNeb inhalations, antibiotics in the form of ceftriaxone. Heparin for DVT prophylaxis. She is anxious to go home. Objective - Vital Signs Vital signs: Vital Signs Temp 97.5 F L 02/12/21 12:52 Pulse 77 02/12/21 12:52 Resp 17 02/12/21 12:52 BP 121/74 02/12/21 12:52 Pulse Ox 100 02/12/21 12:52 Intake & Output 02/11/21 02/12/21 02/12/21 18:59 06:59 18:59 Intake Total 900 Balance 900 Intake: Oral 900 Other: Voiding Method Toilet Toilet # Voids 3 4 - Exam GENERAL EXAM: Alert, pleasant 65-year-old female patient, cachectic, on room air, comfortable in no apparent distress. HEAD: Normocephalic. EYES: Normal reaction of pupils, equal size. NOSE: Clear with pink turbinates. THROAT: No erythema or exudates. NECK: No masses, no JVD. CHEST: Right medi port in place. No chest wall deformity. LUNGS: Equal air entry with no crackles, wheeze, rhonchi or dullness. CVS: S1 and S2 normal with no audible murmur, regular rhythm. ABDOMEN: No hepatosplenomegaly, normal bowel sounds, no guarding or rigidity. SPINE: No scoliosis or deformity SKIN: No rashes CENTRAL NERVOUS SYSTEM: No focal deficits, tone is normal in all 4 extremities. EXTREMITIES: There is no peripheral edema. No clubbing, no cyanosis. Peripheral pulses are intact. - Labs CBC & Chem 7: 02/12/21 06:01 02/12/21 06:01 Labs: Abnormal Lab Results - Last 24 Hours (Table) 02/11/21 02/11/21 02/11/21 Range/Units 05:17 17:28 21:07 RBC (3.80-5.40) m/uL Hgb (11.4-16.0) gm/dL Hct (34.0-46.0) % MCHC (31.0-37.0) g/dL RDW (11.5-15.5) % Plt Count (150-450) k/uL Lymphocytes # (1.0-4.8) k/uL Chloride (96-109) mmol/L Carbon Dioxide (20.0-27.5) mmol/L Anion Gap (10.00-18.00) mmol/L BUN (9.0-27.0) mg/dL Creatinine (0.6-1.5) mg/dL Glucose (70-110) mg/dL POC Glucose (mg/dL) 112 H 124 H (75-99) mg/dL Calcium (8.7-10.3) mg/dL Alkaline Phosphatase (41-126) U/L Total Protein (6.2-8.2) g/dL Albumin (3.8-4.9) g/dL Albumin/Globulin Ratio (1.60-3.17) g/dL Mycoplasma pneumon IgG 2.64 H (<=0.90) INDEX 02/12/21 02/12/21 02/12/21 Range/Units 06:01 06:01 07:36 RBC 2.63 L (3.80-5.40) m/uL Hgb 7.2 L (11.4-16.0) gm/dL Hct 23.7 L (34.0-46.0) % MCHC 30.6 L (31.0-37.0) g/dL RDW 21.1 H (11.5-15.5) % Plt Count 70 L (150-450) k/uL Lymphocytes # 0.8 L (1.0-4.8) k/uL Chloride 110 H (96-109) mmol/L Carbon Dioxide 15.3 L (20.0-27.5) mmol/L Anion Gap 9.80 L (10.00-18.00) mmol/L BUN 6.8 L (9.0-27.0) mg/dL Creatinine 0.5 L (0.6-1.5) mg/dL Glucose 126 H (70-110) mg/dL POC Glucose (mg/dL) 116 H (75-99) mg/dL Calcium 7.2 L (8.7-10.3) mg/dL Alkaline Phosphatase 278 H (41-126) U/L Total Protein 4.2 L (6.2-8.2) g/dL Albumin 1.7 L (3.8-4.9) g/dL Albumin/Globulin Ratio 0.66 L (1.60-3.17) g/dL Mycoplasma pneumon IgG (<=0.90) INDEX 02/12/21 Range/Units 12:30 RBC (3.80-5.40) m/uL Hgb (11.4-16.0) gm/dL Hct (34.0-46.0) % MCHC (31.0-37.0) g/dL RDW (11.5-15.5) % Plt Count (150-450) k/uL Lymphocytes # (1.0-4.8) k/uL Chloride (96-109) mmol/L Carbon Dioxide (20.0-27.5) mmol/L Anion Gap (10.00-18.00) mmol/L BUN (9.0-27.0) mg/dL Creatinine (0.6-1.5) mg/dL Glucose (70-110) mg/dL POC Glucose (mg/dL) 173 H (75-99) mg/dL Calcium (8.7-10.3) mg/dL Alkaline Phosphatase (41-126) U/L Total Protein (6.2-8.2) g/dL Albumin (3.8-4.9) g/dL Albumin/Globulin Ratio (1.60-3.17) g/dL Mycoplasma pneumon IgG (<=0.90) INDEX Microbiology - Last 24 Hours (Table) 02/10/21 11:15 Blood Culture - Preliminary Blood No Growth after 48 hours 02/10/21 11:25 Blood Culture - Preliminary Blood No Growth after 48 hours Assessment and Plan Assessment: 1 Mild hypoxemia, likely related to patient not taking deep breaths, as well as underlying COPD. Currently at 100% O2 saturation on room air 2 History of pancreatic cancer, currently undergoing chemotherapy. 3 Pancreatitis, chronic. 4 History of gastroesophageal reflux disease. 5 History of hyperlipidemia. 6 History of hypertension. 7 History of osteoarthritis. 8 History of ongoing tobacco use. 9 History of anxiety/depression. Plan: The patient was seen and evaluated by Dr. Arlene Simon from the pulmonary standpoint, on room air We will see as needed I, the cosigning physician, performed a history & physical examination of the patient. Lungs sounds are clear. Maintaining good O2 saturations in the 90s on room air. I discussed the assessment and plan of care with my nurse practitioner, Mechelle Hay. I attest to the above note as dictated by her.
[2021-02-12 16:05] VITALS: PULSE 87
[2021-02-12 17:23] LABS: Glucose,Whole Blood 73 mg/dL (75-99)
--- NOTE | 2021-02-13 13:42 | P.DS ---
Providers Date of admission: 02/10/21 08:58 Attending physician: Yvrose Brito Consults: 02/08/21 12:44 Consult Physician Routine Consulting Provider: Anand Muller Consult Reason/Comments: pancreatic cancer Do you want consulting provider notified?: Yes 02/09/21 18:47 Consult Physician Routine Consulting Provider: Hipolito Hough Reason/Comments: hypoxia Do you want consulting provider notified?: Yes Primary care physician: [facility] Course: Final Diagnosis Acute abdominal pain, possibly due to acute on chronic pancreatitis, and known history of pancreatic cancer Possible left lower lobe infiltrate and pneumonia with sepsis, present on admission; felt more likely to be COPD and hypoventilation. Hypoxia secondary to shallow respirations from abdominal pain, underlying COPD, and possible pneumonia, improved on room air now Hypotension, secondary to dehydration, possible sepsis, improving Acute kidney injury, most likely acute tubular necrosis s/t hypotension, resolved with hydration Hypoglycemia, resolved, now hyperglycemic Elevated procalcitonin, 20.8 Pancreatic cancer, s/p chemotherapy Leukocytosis s/t above, improving Malnutrition Anemia of chronic disease, and chronic gastrointestinal bleed Hyponatremia due to dehydration and poor oral intake, improving Hypokalemia due to dehydration and poor oral intake, repleted hypomagnesemia due to dehydration and poor oral intake History of Hypertension Hyperlipidemia History of COPD, not in acute exacerbation Chronic nicotine dependence; 1/2 PPD History of marijuana use Remote history of ETOH Discharge disposition Patient is discharged home where she lives with her daughter. She is cleared by oncology. Please see progress note and HPI for additional information. 02/12/2021 Patient is evaluated today sitting up in the chair. Abdomen is more distended than yesterday, appears to be bowel gas. Patient had a bowel movement for 4-5 days ago. We did order a dose of lactulose today. Patient was cleared by onco logy, and pulmonary services for discharge home and to follow up in the office before her next treatment. Labs today show a hemoglobin of 7.2, chloride 110, co2 15.3, glucose in the 110-120s, mag 2.1, potassium 4.7, sodium 135, Alk phos 278, albumin 1.7. She is afebrile, heart rate 77, BP 121/74, 100% on room air. Upon re-evaluation of patient she is less distended and passing more gas, she feels a bowel movement is coming, and there is no abdominal tenderness. She can be discharged home. We will give her a few more days of lactulose. Blood cultures show no growth after 72 hours. Please see medication reconciliation for a list of current medications. Thank you for allowing us to participate in the care of this patient. Patient Condition at Discharge: Stable Plan - Discharge Summary New Discharge Prescriptions: New Lactulose 20 gm PO DAILY 4 Days #120 ml Continue Docusate [Colace] 200 mg PO DAILY #30 cap Magnesium Oxide [Mag-Ox] 400 mg PO BID 30 Days #60 tab Pantoprazole Sodium [Protonix] 40 mg PO DAILY #30 tab Potassium Chloride ER [K-Dur 10] 10 meq PO BID Gabapentin [Neurontin] 300 mg PO BID traMADol HCL 50 mg PO Q6H PRN PRN Reason: Pain Discontinued amLODIPine BESYLATE/BENAZEPRIL [amLODIPine BESYLATE/BENAZEPRIL 10-40 MG] 1 ca p PO DAILY HYDROcodone/APAP 5-325MG [[place] 5-325] 1 tab PO Q6HR PRN 3 Days #12 tab PRN Reason: Pain Discharge Medication List Docusate [Colace] 200 mg PO DAILY #30 cap 01/06/21 [Rx] Gabapentin [Neurontin] 300 mg PO BID 02/08/21 [History] Potassium Chloride ER [K-Dur 10] 10 meq PO BID 02/08/21 [History] traMADol HCL 50 mg PO Q6H PRN 02/08/21 [History] Lactulose 20 gm PO DAILY 4 Days #120 ml 02/12/21 [Rx] Magnesium Oxide [Mag-Ox] 400 mg PO BID 30 Days #60 tab 02/12/21 [Rx] Pantoprazole Sodium [Protonix] 40 mg PO DAILY #30 tab 02/12/21 [Rx] Follow up Appointment(s)/Referral(s): Anand Muller MD [STAFF PHYSICIAN] - 02/18/21 4:45 am [facility] [NON-STAFF] - As Needed (Contact inbetween their scheduled visits if having issues with pain management. ) Sheron Lorenz MD [Primary Care Provider] - 1-2 days [facility] [NON-STAFF] - 1-2 Days Ambulatory/Diagnostic Orders: Basic Metabolic Panel [LAB.AMB] Time Frame: 3 Days, Location: None Selected Complete Blood Count w/diff [LAB.AMB] Time Frame: 3 Days, Location: None Selected Patient Instructions/Handouts: How to Stop Smoking (DC), Pain Management (DC) Discharge/Stand Alone Forms: Personal Pony Trimmer Discharge Disposition: HOME WITH HOME HEALTH SERVICES
== END 2021-02-12 18:19 | disposition home health service (06) | DRG 871 ==
LOC: EC 08:08 → 5NMEDONC 12:43 → OBSVTOIN 02-10 08:58
PROVIDERS: ADMIT Hospitalist; ATTEND Hospitalist
DX: A41.9 Sepsis, unspecified organism (principal); E43 Unspecified severe protein-calorie malnutrition; J18.9 Pneumonia, unspecified organism; J96.91 Respiratory failure, unspecified with hypoxia; N17.0 Acute kidney failure with tubular necrosis; K85.90 Acute pancreatitis without necrosis or infection, unspecified; C25.9 Malignant neoplasm of pancreas, unspecified; Z68.1 Body mass index [BMI] 19.9 or less, adult; E87.1 Hypo-osmolality and hyponatremia; E87.3 Alkalosis; K86.1 Other chronic pancreatitis; J44.0 Chronic obstructive pulmonary disease with (acute) lower respiratory infection; J98.11 Atelectasis; K92.2 Gastrointestinal hemorrhage, unspecified; R10.9 Unspecified abdominal pain; D63.8 Anemia in other chronic diseases classified elsewhere; E16.2 Hypoglycemia, unspecified; E78.5 Hyperlipidemia, unspecified; E83.42 Hypomagnesemia; E83.51 Hypocalcemia; E86.0 Dehydration; E87.6 Hypokalemia; F17.210 Nicotine dependence, cigarettes, uncomplicated; G89.29 Other chronic pain; I10 Essential (primary) hypertension; M54.40 Lumbago with sciatica, unspecified side; M81.0 Age-related osteoporosis without current pathological fracture; Z20.822 Contact with and (suspected) exposure to COVID-19; R73.9 Hyperglycemia, unspecified; Z79.899 Other long term (current) drug therapy; Z80.0 Family history of malignant neoplasm of digestive organs; Z85.07 Personal history of malignant neoplasm of pancreas; Z91.19 Patient's noncompliance with other medical treatment and regimen; Z92.21 Personal history of antineoplastic chemotherapy; F41.9 Anxiety disorder, unspecified; F32.9 Major depressive disorder, single episode, unspecified
CPT/HCPCS: 36415; 36600; 71045; 71046; 80048; 80053; 81001; 82150; 82805; 83690; 83735; 84145; 85025; 86738; 87040; 87502; 87634; 87635; 93005; 94640; 94760; 96361; 96374; 96375; 96376; 99285

== ENCOUNTER 2021-02-16 10:41 | Inpatient (IN) | payer MEDICARE, OTHER ==
[2021-02-16] MEDS ORDERED: SODIUM CHLORIDE 0.9% 500 ML 500 ML IV STA (11:42)
[2021-02-16] MEDS ORDERED: HYDROmorphone 0.5 MG/0.5 ML SYRINGE IVP STA (11:43)
[2021-02-16] MEDS ORDERED: IPRATROPIUM-ALBUTEROL 3 ML NEB INHALATION STA (11:43)
[2021-02-16 12:07] LABS: Anisocytosis Moderate; HCT 23.3 % (34.0-46.0); HGB 7.6 gm/dL (11.4-16.0); MCH 28.4 pg (25.0-35.0); MCHC 32.7 g/dL (31.0-37.0); Mean Platelet Volume 11.8; Microcytosis Slight; RBC 2.67 m/uL (3.80-5.40); RDW 21.7 % (11.5-15.5)
--- NOTE | 2021-02-16 12:11 | ED ---
General Adult HPI <Tj Krishnamurthy - Last Filed: 02/16/21 14:18> - General Source: patient Mode of arrival: wheelchair Limitations: no limitations <Marvin Guy - Last Filed: 02/16/21 16:02> - General Chief complaint: Abdominal Pain Stated complaint: CIRILO/abd pain Time Seen by Provider: 02/16/21 11:32 - History of Present Illness Initial comments: 66-year-old female presents to the emergency room for a chief complaint of abdominal pain. Patient has a history of pancreatic cancer. Patient states she feels like her pancreatitis is flaring. Patient also has shortness of breath. Patient reports she has a history of COPD. States she is having an increased cough lately. States she cannot bring up any phlegm but feels as though she needs to. Denies fever.Patient has no other complaints at this time including chest pain, abdominal pain, nausea or vomiting, headache, or visual changes. (Marvin Guy) - Related Data Home Medications Medication Instructions Recorded Confirmed Gabapentin [Neurontin] 300 mg PO BID 02/08/21 02/16/21 Potassium Chloride ER [K-Dur 10] 10 meq PO BID 02/08/21 02/16/21 traMADol HCL 50 mg PO Q6H PRN 02/08/21 02/16/21 amLODIPine BESYLATE/BENAZEPRIL 1 cap PO DAILY 02/16/21 02/16/21 [Lotrel 10-40 MG] Previous Rx's Medication Instructions Recorded Docusate [Colace] 200 mg PO DAILY #30 cap 01/06/21 Lactulose 20 gm PO DAILY 4 Days #120 ml 02/12/21 Magnesium Oxide [Mag-Ox] 400 mg PO BID 30 Days #60 tab 02/12/21 Pantoprazole Sodium [Protonix] 40 mg PO DAILY #30 tab 02/12/21 Allergies Allergy/AdvReac Type Severity Reaction Status Date / Time amylase [From Zenpep] AdvReac stomach Verified 02/16/21 14:40 pain erythromycin base AdvReac Nausea Verified 02/16/21 14:40 [Erythromycin Base] gabapentin AdvReac Hallucinati Verified 02/16/21 14:40 ons lipase [From Zenpep] AdvReac stomach Verified 02/16/21 14:40 pain protease [From Zenpep] AdvReac stomach Verified 02/16/21 14:40 pain Review of Systems ROS Other: All systems not noted in ROS Statement are negative. <Tj Krishnamurthy - Last Filed: 02/16/21 14:18> ROS Other: All systems not noted in ROS Statement are negative. <Marvin Guy - Last Filed: 02/16/21 16:02> ROS Statement: Those systems with pertinent positive or pertinent negative responses have been documented in the HPI. Past Medical History Past Medical History: Cancer, GERD/Reflux, Hyperlipidemia, Hypertension, Musculoskeletal Disorder, Osteoarthritis (OA) Additional Past Medical History / Comment(s): Osteoporosis, Lower Back Pain, Sciatica. TOLD YEARS AGO SHE HAD HEART MURMUR- NO TX, HX ACUTE BRONCHITIS(SMOKER), August 2020 pancreatic cancer. Current head tremor. Feet, ankles and legs swollen. History of Any Multi-Drug Resistant Organisms: None Reported Past Surgical History: Orthopedic Surgery, Tubal Ligation Additional Past Surgical History / Comment(s): 2 pins in right hip-dislocated 19 76. Past Anesthesia/Blood Transfusion Reactions: No Reported Reaction Past Psychological History: Anxiety, Depression Smoking Status: Current every day smoker Past Alcohol Use History: None Reported Past Drug Use History: Marijuana - Past Family History Mother Family Medical History: Liver Disease Father Family Medical History: Cancer Additional Family Medical History / Comment(s): Lung or liver cancer. <Marvin Guy P - Last Filed: 02/16/21 16:02> General Exam Limitations: no limitations General appearance: alert, in no apparent distress Head exam: Present: atraumatic Eye exam: Present: normal appearance, PERRL, EOMI. Absent: scleral icterus, conjunctival injection ENT exam: Present: normal exam, mucous membranes moist Neck exam: Present: normal inspection, full ROM. Absent: tenderness Respiratory exam: Present: normal lung sounds bilaterally. Absent: respiratory distress, wheezes Cardiovascular Exam: Present: regular rate, normal rhythm, normal heart sounds GI/Abdominal exam: Present: soft, tenderness (generlized abdominal tenderness), normal bowel sounds. Absent: distended <Marvin Guy P - Last Filed: 02/16/21 16:02> Course <Tj Krishnamurthy - Last Filed: 02/16/21 14:18> Vital Signs 02/16/21 02/16/21 02/16/21 11:06 12:21 13:00 Temperature 97.6 F Pulse Rate 64 76 Respiratory 18 Rate Blood Pressure 140/96 O2 Sat by Pulse 85 L 93 L Oximetry 02/16/21 02/16/21 02/16/21 13:08 13:16 15:23 Temperature Pulse Rate 80 80 76 Respiratory 20 18 Rate Blood Pressure 158/102 171/97 O2 Sat by Pulse 94 L 100 Oximetry - Reevaluation(s) Reevaluation #1: 02/16/21 14:18 Case reviewed and was discussed with practitioner Marvin. Case also discussed with Dr. Kenney who agrees patient does not need heparin at this time. (Tj Krishnamurthy) Medical Decision Making - Lab Data Result diagrams: 02/16/21 11:56 02/16/21 11:56 <Tj Krishnamurthy - Last Filed: 02/16/21 14:18> - Lab Data Result diagrams: 02/16/21 11:56 02/16/21 11:56 <aMrvin Guy - Last Filed: 02/16/21 16:02> - Medical Decision Making Patient presents hypoxic on room air at 85% saturation. She was placed on 5 L nasal cannula. Patient did recently have chemotherapy last week however no fever. She does have leukocytosis noted. Chest CTA showed pleural effusions and abdominal ascites. There is basilar mild pulmonary infiltrates. No evidence of pulmonary embolism. Patient started on antibiotics. Patient also noted to have an elevated troponin. Dr. Krishnamurthy spoke with cardiology. We will continue to repeat troponins. We will not heparinize patient given her anemia and lack of chest pain. (Marvin Guy) - Lab Data Lab Results 02/16/21 02/16/21 02/16/21 Range/Units 11:56 11:56 11:56 WBC 12.8 H (3.8-10.6) k/uL RBC 2.67 L (3.80-5.40) m/uL Hgb 7.6 L (11.4-16.0) gm/dL Hct 23.3 L (34.0-46.0) % MCV 87.0 (80.0-100.0) fL MCH 28.4 (25.0-35.0) pg MCHC 32.7 (31.0-37.0) g/dL RDW 21.7 H (11.5-15.5) % Plt Count 133 L D (150-450) k/uL MPV 11.8 Neutrophils % (Manual) 85 % Lymphocytes % (Manual) 13 % Monocytes % (Manual) 3 % Neutrophils # (Manual) 10.88 H (1.3-7.7) k/uL Lymphocytes # (Manual) 1.66 (1.0-4.8) k/uL Monocytes # (Manual) 0.38 (0-1.0) k/uL Nucleated RBCs 2 H (0-0) /100 WBC Manual Slide Review Performed Anisocytosis Moderate Microcytosis Slight PT 12.1 H (9.0-12.0) sec INR 1.2 H (<1.2) APTT 24.7 (22.0-30.0) sec D-Dimer (<0.60) mg/L FEU Sodium 132 L (137-145) mmol/L Potassium 3.6 (3.5-5.1) mmol/L Chloride 111 H (98-107) mmol/L Carbon Dioxide 19 L (22-30) mmol/L Anion Gap 2 mmol/L BUN 6 L (7-17) mg/dL Creatinine 0.56 (0.52-1.04) mg/dL Est GFR (CKD-EPI)AfAm >90 (>60 ml/min/1.73 sqM) Est GFR (CKD-EPI)NonAf >90 (>60 ml/min/1.73 sqM) Glucose 141 H (74-99) mg/dL Calcium 7.4 L (8.4-10.2) mg/dL Total Bilirubin 0.5 (0.2-1.3) mg/dL AST 20 (14-36) U/L ALT 16 (4-34) U/L Alkaline Phosphatase 302 H (38-126) U/L Troponin I (0.000-0.034) ng/mL NT-Pro-B Natriuret Pep pg/mL Total Protein 4.5 L (6.3-8.2) g/dL Albumin 1.7 L (3.5-5.0) g/dL Amylase <30 L (30-110) U/L Lipase 57 (23-300) U/L Coronavirus (PCR) (Not Detectd) 02/16/21 02/16/21 02/16/21 Range/Units 11:56 11:56 13:21 WBC (3.8-10.6) k/uL RBC (3.80-5.40) m/uL Hgb (11.4-16.0) gm/dL Hct (34.0-46.0) % MCV (80.0-100.0) fL MCH (25.0-35.0) pg MCHC (31.0-37.0) g/dL RDW (11.5-15.5) % Plt Count (150-450) k/uL MPV Neutrophils % (Manual) % Lymphocytes % (Manual) % Monocytes % (Manual) % Neutrophils # (Manual) (1.3-7.7) k/uL Lymphocytes # (Manual) (1.0-4.8) k/uL Monocytes # (Manual) (0-1.0) k/uL Nucleated RBCs (0-0) /100 WBC Manual Slide Review Anisocytosis Microcytosis PT (9.0-12.0) sec INR (<1.2) APTT (22.0-30.0) sec D-Dimer 5.79 H (<0.60) mg/L FEU Sodium (137-145) mmol/L Potassium (3.5-5.1) mmol/L Chloride (98-107) mmol/L Carbon Dioxide (22-30) mmol/L Anion Gap mmol/L BUN (7-17) mg/dL Creatinine (0.52-1.04) mg/dL Est GFR (CKD-EPI)AfAm (>60 ml/min/1.73 sqM) Est GFR (CKD-EPI)NonAf (>60 ml/min/1.73 sqM) Glucose (74-99) mg/dL Calcium (8.4-10.2) mg/dL Total Bilirubin (0.2-1.3) mg/dL AST (14-36) U/L ALT (4-34) U/L Alkaline Phosphatase (38-126) U/L Troponin I 0.278 H* (0.000-0.034) ng/mL NT-Pro-B Natriuret Pep pg/mL Total Protein (6.3-8.2) g/dL Albumin (3.5-5.0) g/dL Amylase (30-110) U/L Lipase (23-300) U/L Coronavirus (PCR) Not Detected (Not Detectd) 02/16/21 Range/Units 13:21 WBC (3.8-10.6) k/uL RBC (3.80-5.40) m/uL Hgb (11.4-16.0) gm/dL Hct (34.0-46.0) % MCV (80.0-100.0) fL MCH (25.0-35.0) pg MCHC (31.0-37.0) g/dL RDW (11.5-15.5) % Plt Count (150-450) k/uL MPV Neutrophils % (Manual) % Lymphocytes % (Manual) % Monocytes % (Manual) % Neutrophils # (Manual) (1.3-7.7) k/uL Lymphocytes # (Manual) (1.0-4.8) k/uL Monocytes # (Manual) (0-1.0) k/uL Nucleated RBCs (0-0) /100 WBC Manual Slide Review Anisocytosis Microcytosis PT (9.0-12.0) sec INR (<1.2) APTT (22.0-30.0) sec D-Dimer (<0.60) mg/L FEU Sodium (137-145) mmol/L Potassium (3.5-5.1) mmol/L Chloride (98-107) mmol/L Carbon Dioxide (22-30) mmol/L Anion Gap mmol/L BUN (7-17) mg/dL Creatinine (0.52-1.04) mg/dL Est GFR (CKD-EPI)AfAm (>60 ml/min/1.73 sqM) Est GFR (CKD-EPI)NonAf (>60 ml/min/1.73 sqM) Glucose (74-99) mg/dL Calcium (8.4-10.2) mg/dL Total Bilirubin (0.2-1.3) mg/dL AST (14-36) U/L ALT (4-34) U/L Alkaline Phosphatase (38-126) U/L Troponin I (0.000-0.034) ng/mL NT-Pro-B Natriuret Pep 1080 pg/mL Total Protein (6.3-8.2) g/dL Albumin (3.5-5.0) g/dL Amylase (30-110) U/L Lipase (23-300) U/L Coronavirus (PCR) (Not Detectd) Disposition <Tj Krishnamurthy - Last Filed: 02/16/21 14:18> Is patient prescribed a controlled substance at d/c from ED?: No Time of Disposition: 16:02 <Marvin Guy - Last Filed: 02/16/21 16:02> Clinical Impression: Pancreatic cancer, Abdominal pain, Pneumonia, Leukocytosis, Anemia, Ascites Disposition: ADMITTED IP TO THIS HOSP Referrals: Sheron Lorenz MD [Primary Care Provider] - 1-2 days
[2021-02-16 12:16] LABS: ALT 16 U/L (4-34); AST 20 U/L (14-36); African American GFR (CKD) >90 (>60 ml/min/1.73 sqM); Albumin 1.7 g/dL (3.5-5.0); Alkaline Phosphatase 302 U/L (38-126); Amylase <30 U/L (30-110); Anion Gap 2 mmol/L; Blood Urea Nitrogen 6 mg/dL (7-17); Calcium 7.4 mg/dL (8.4-10.2); Carbon Dioxide 19 mmol/L (22-30); Chloride 111 mmol/L (98-107); Glucose 141 mg/dL (74-99); Lipase 57 U/L (23-300); Non-African American GFR(CKD) >90 (>60 ml/min/1.73 sqM); Potassium 3.6 mmol/L (3.5-5.1); Sodium 132 mmol/L (137-145); Total Bilirubin 0.5 mg/dL (0.2-1.3); Total Protein 4.5 g/dL (6.3-8.2)
[2021-02-16 12:23] LABS: Platelet Count 133 k/uL (150-450)
[2021-02-16 12:26] LABS: INR 1.2 (<1.2); Partial Thromboplastin Time 24.7 sec (22.0-30.0); Prothrombin Time 12.1 sec (9.0-12.0)
[2021-02-16 12:49] LABS: Lymphocytes # (M) 1.66 k/uL (1.0-4.8); Monocytes # (M) 0.38 k/uL (0-1.0); Neutrophils # (M) 10.88 k/uL (1.3-7.7); Neutrophils % (M) 85 %; Nucleated Red Blood Cells 2 /100 WBC (0-0); Total Cells Counted 200; WBC 12.8 k/uL (3.8-10.6)
--- NOTE | 2021-02-16 13:01 | XR ---
EXAMINATION TYPE: XR chest 2V DATE OF EXAM: 02/16/2021 COMPARISON: 02/11/2021 HISTORY: 66 years Female. STUDY INDICATION GIVEN: difficulty breathing . TECHNIQUE: Frontal and lateral chest radiographs. IMPRESSION: Accessed right Port-A-Cath tip at the distal aspect of the SVC. Stable. Port-A-Cath location over the right mid hemithorax limits evaluation for lung opacities at the same l ocation. There is mild interstitial prominence suggesting mild interstitial edema though appearance is not sig nificantly changed compared to prior. There is a focal opacity seen on the lateral view projecting over the vertebral body lying just above the level of the diaphragm compared to the prior study this opacity was present though appears decre ased and is suggestive of resolving lung infection or inflammation. This is favored to be located in the left lower lobe. No new focal airspace opacities, pneumothorax or pleural effusion. The heart and mediastinum are normal in silhouette. No significant osseous abnormalities
--- NOTE | 2021-02-16 15:35 | CT ---
EXAMINATION TYPE: CT chest angio for PE DATE OF EXAM: 02/16/2021 COMPARISON: None HISTORY: Shortness of breath, cancer, hypoxic CT DLP: 180.2 mGycm Automated exposure control for dose reduction was used. CONTRAST: Performed with IV Contrast, patient injected with 100, wasted 55 ml mL of Isovue 370. There are 3-D post processed images. There are mild bilateral pleural effusions. There is infiltrate and atelectasis at both lung bases. H eart size is normal. There is no pericardial effusion. There is abdominal ascites. There is normal contrast opacification of the pulmonary arteries. There are no filling defects. There are no hilar masses. There is no mediastinal adenopathy. Thoracic spine is intact. Sternum is intact. IMPRESSION: No evidence of pulmonary embolism. Pleural effusions and abdominal ascites. Basilar mild pulmonary in filtrates and atelectasis.
[2021-02-16] MEDS ORDERED: LEVOFLOXACIN 750MG-D5W PMX 750 MG in DEXTROSE/WATER 1 150ML.BAG IVPB STA (15:58)
[2021-02-16] MEDS ORDERED: IPRATROPIUM-ALBUTEROL 3 ML NEB INHALATION PRN (16:03)
[2021-02-16] MEDS ORDERED: PNEUMONIA PROTOCOL UTILIZED 1 EACH MISC PO PRN (16:03)
[2021-02-16] MEDS ORDERED: VANCOMYCIN IV PER PHARMACY 1 EACH MISC MISCELLANE PRN (16:15)
[2021-02-16] MEDS ORDERED: VANCOMYCIN 750 MG in SODIUM CHLORIDE 0.9% 250 ML IVPB ONE (16:30)
--- NOTE | 2021-02-16 17:42 | HP ---
HISTORY AND PHYSICAL CHIEF COMPLAINT: Shortness of breath and as well as some cough and some abdominal pain. HISTORY OF PRESENT ILLNESS: This 60-year-old woman with a past medical history of multiple medical problems, including history of pancreatic cancer, chronic pancreatitis, hypertension, hyperlipidemia, followed by Dr. Sheron Lorenz in the outpatient setting, was recently admitted to [facility] with features of acute on chronic pancreatitis. The patient treated symptomatically. Patient suspected of left lower low pneumonia and sepsis. The patient improved Patient went home. Currently the patient complaining of shortness of breath, some chest and abdominal pain and as well as some cough and the patient came to [facility] and admitted to the hospital for further evaluation and treatment. The evaluation in the ER, chest x-ray was done which I reviewed personally showed some increased bronchovascular markings. D-dimer was significantly elevated more than 5 and chest CTA was done which was reviewed personally by me showed no evidence of pulmonary embolism, but pleural effusion and abdominal ascites; also had bibasilar mild pulmonary infiltrates also noted. There is no history of fever, rigors or chills. No history of headache, loss of consciousness or seizures. PAST MEDICAL HISTORY: History of GERD, hypertension, hyperlipidemia, history of DJD. MEDICATIONS: Home medications are reviewed and include: Ultram 50 mg q.6h p.r.n., Lotrel 10/40 1 p.o. daily. K-Dur 10 mEq p.o. daily, Protonix 40 mg p.o. daily, magnesium oxide 400 mg p.o. b.i.d., lactulose 20 mg daily, Neurontin 300 mg p.o. b.i.d., Colace 200 mg p.o. daily. ALLERGIES: AMYLASE, ERYTHROMYCIN, GABAPENTIN, LIPASE, AND PROTEUS. FAMILY HISTORY: History of liver disease, lung and liver cancer. SOCIAL HISTORY: Previous history of alcohol. History of THC, history of smoking currently, continued ongoing. REVIEW OF SYSTEMS: ENT: Diminished vision. Diminished hearing. CARDIOVASCULAR system: As mentioned earlier. RESPIRATORY: As mentioned earlier. GI: As mentioned earlier. : No dysuria. NERVOUS SYSTEM: No numbness or weakness. ALLERGY/IMMUNOLOGY: No asthma or hayfever. MUSCULOSKELETAL as mentioned earlier. HEMATOLOGY/ONCOLOGY: No history of anemia. ENDOCRINE: As mentioned earlier. CONSTITUTIONAL: As mentioned earlier. DERMATOLOGY: Negative. RHEUMATOLOGY: Negative. PSYCHIATRY as mentioned earlier. PHYSICAL EXAMINATION: Patient is alert, oriented x3. The pulse is 78. Blood pressure 170/90, respiration 18, temperature is normal. Pulse ox 100 percent on 5 L. HEENT: Conjunctivae normal. Oral mucosa moist. NECK: No JVD. CARDIOVASCULAR: S1, S2 muffled. RESPIRATION: Breath sounds diminished in the bases. Few scattered rhonchi. ABDOMEN: Soft, mild diffuse discomfort. LEGS: No edema. No swelling. NERVOUS SYSTEM: Higher functions as mentioned. Moves all four limbs. No focal motor or sensory deficits. LYMPHATICS: No lymph nodes palpable in the neck, axillae or groin. SKIN: No ulcer. No rash. No bleeding. JOINTS: No active deforming arthropathy. LABS: At this time show WBC 12.8, hemoglobin 7.2. Sodium 132, potassium 3.6. ASSESSMENT: 1. Shortness of breath, possible chronic obstructive pulmonary disease acute exacerbation with acute bibasilar pneumonia possibly aspiration, possibly gram- negative and possibly hospital acquired pneumonia with sepsis, present on admission. 2. Elevated D-dimer without any evidence of acute pulmonary embolism. 3. Increased WBC. 4. Anemia. 5. Thrombocytopenia. 6. Hyponatremia. 7. Acute on chronic abdominal pain. 8. Mild metabolic acidosis. 9. Troponin 0.278, rule out acute myocardial infarction. 10.Elevated alkaline phosphatase. 11.Hypoalbuminemia with severe protein-calorie malnutrition. 12.History of gastroesophageal reflux disease. 13.Hypertension. 14.Hyperlipidemia. 15.History of degenerative joint disease, history of back pain. 16.History of pancreatic . 17.History of THC. 18.History of anxiety, depression. 19.Remote history of ETOH. RECOMMENDATIONS AND DISCUSSION: This 65-year-old woman who presented with multiple complex medical issues, we will monitor the patient closely, broad-spectrum IV antibiotics. Otherwise, obtain the cultures. Symptomatic treatment, bronchodilators. There is no evidence of pulmonary embolism. D-dimer is elevated and Covid 19 is negative. Also recommend send out Covid 19 at this time. Overall prognosis guarded because of multiple complex medical issues. Further recommendations to follow. A copy of dictation is being forwarded to Dr. Sheron Lorenz, who is the primary physician. MMODL / IJN: [id number] /
[2021-02-16 17:50] LABS: Appearance,Urine Cloudy (Clear); Bilirubin,Urine Negative (Negative); Blood,Urine Negative (Negative); Color,Urine Yellow; Glucose,Urine (UA) Negative (Negative); Hyaline Casts,Urine 3 /lpf (0-2); Ketones,Urine Negative (Negative); Leukocyte Esterase,Urine Large (Negative); Mucus,Urine Few /hpf; Nitrite,Urine Negative (Negative); Protein,Urine 1+ (Negative); RBC,Urine 23 /hpf (0-5); Squamous Epithelial Cell,Urine 4 /hpf (0-4); Urobilinogen,Urine <2.0 mg/dL (<2.0); WBC,Urine 31 /hpf (0-5)
[2021-02-16] MEDS: SODIUM CHLORIDE 0.9% 1,000 ML IV SCH (19:00)
[2021-02-16] MEDS: IPRATROPIUM-ALBUTEROL 3 ML NEB INHALATION SCH (21:20)
[2021-02-16] MEDS: HEPARIN SODIUM,PORCINE/PF 5,000 UNIT/0.5 ML SYRINGE SQ SCH (21:32)
[2021-02-16] MEDS: POTASSIUM CHLORIDE ER 10 MEQ TAB.ER.PRT PO SCH (21:32)
[2021-02-16] MEDS: GABAPENTIN 300 MG CAP PO SCH (21:32)
[2021-02-16] MEDS: MAGNESIUM OXIDE 400 MG TAB PO SCH (21:32)
[2021-02-17 06:55] LABS: Anisocytosis Moderate; HCT 21.2 % (34.0-46.0); MCH 28.5 pg (25.0-35.0); MCHC 32.6 g/dL (31.0-37.0); MCV 87.5 fL (80.0-100.0); Mean Platelet Volume 11.8; Microcytosis Slight; RBC 2.43 m/uL (3.80-5.40); RDW 22.7 % (11.5-15.5)
[2021-02-17 06:59] LABS: HGB 6.9 gm/dL (11.4-16.0)
[2021-02-17 07:18] LABS: ALT 15 U/L (4-34); AST 17 U/L (14-36); African American GFR (CKD) >90 (>60 ml/min/1.73 sqM); Albumin 1.6 g/dL (3.5-5.0); Alkaline Phosphatase 282 U/L (38-126); Anion Gap 4 mmol/L; Blood Urea Nitrogen 5 mg/dL (7-17); Calcium 7.2 mg/dL (8.4-10.2); Carbon Dioxide 18 mmol/L (22-30); Chloride 111 mmol/L (98-107); Glucose 129 mg/dL (74-99); Non-African American GFR(CKD) >90 (>60 ml/min/1.73 sqM); Potassium 3.8 mmol/L (3.5-5.1); Sodium 133 mmol/L (137-145); Total Bilirubin 0.5 mg/dL (0.2-1.3); Total Protein 4.3 g/dL (6.3-8.2)
[2021-02-17] MEDS: IPRATROPIUM-ALBUTEROL 3 ML NEB INHALATION SCH ×4 (07:38→20:22)
[2021-02-17] MEDS ORDERED: FUROSEMIDE 10 MG/ML 4 ML VIAL IV STA (08:03)
[2021-02-17] MEDS: HEPARIN SODIUM,PORCINE/PF 5,000 UNIT/0.5 ML SYRINGE SQ SCH ×2 (08:25→21:08)
[2021-02-17] MEDS: MAGNESIUM OXIDE 400 MG TAB PO SCH ×2 (08:43→21:07)
[2021-02-17] MEDS: lisinopriL 20 MG TAB PO SCH (08:43)
[2021-02-17] MEDS: POTASSIUM CHLORIDE ER 10 MEQ TAB.ER.PRT PO SCH ×2 (08:43→21:07)
[2021-02-17] MEDS: DOCUSATE 100 MG CAP PO SCH (08:43)
[2021-02-17] MEDS: GABAPENTIN 300 MG CAP PO SCH ×2 (08:43→21:07)
[2021-02-17] MEDS: PANTOPRAZOLE 40 MG TABLET PO SCH (08:43)
[2021-02-17] MEDS: amLODIPine 10 MG TAB PO SCH (08:43)
[2021-02-17] MEDS: LACTULOSE 20 GM/30 ML CUP PO SCH (08:44)
[2021-02-17 08:52] LABS: Band Neutrophils % 1 %; Lymphocytes # (M) 0.75 k/uL (1.0-4.8); Metamyelocytes # (M) 0.09 k/uL (0); Metamyelocytes % 1 %; Monocytes # (M) 0.38 k/uL (0-1.0); Neutrophils % (M) 87 %; Nucleated Red Blood Cells 5 /100 WBC (0-0); Total Cells Counted 200; WBC 9.4 k/uL (3.8-10.6)
[2021-02-17 08:53] LABS: Platelet Count 149 k/uL (150-450)
[2021-02-17] MEDS ORDERED: NON FORMULARY DRUG (Amlodipine Besylate/Benazepril [Lotrel 10-40 Mg] 1 EACH Capsule) PO SCH (09:00)
--- NOTE | 2021-02-17 09:05 | XR ---
EXAMINATION TYPE: XR chest 1V DATE OF EXAM: 02/17/2021 COMPARISON: 02/16/2021. HISTORY: Difficulty breathing TECHNIQUE: Single frontal view of the chest is obtained. FINDINGS: Mediport catheter seen with tip overlying the SVC. Subsegmental bilateral areas of consoli dation. Hyperinflation suggests COPD. Heart size normal. No pneumothorax. IMPRESSION: Bilateral basilar infiltrate or atelectasis correlate clinically. Mild central interstit ial pneumonitis or venous congestion not excluded.
[2021-02-17] MEDS: HYDROmorphone 0.5 MG/0.5 ML SYRINGE IVP PRN ×2 (10:38→22:48)
[2021-02-17] MEDS: SODIUM CHLORIDE 0.9% 1,000 ML IV SCH (10:38)
--- NOTE | 2021-02-17 11:00 | CONS ---
CONSULTATION HISTORY OF PRESENT ILLNESS: Nannette is a 66-year-old lady who has complex and multiple medical problems, including stage IV pancreatic cancer, that is admitted to the hospital with shortness of breath and mild leg edema. She also has abdominal discomfort. Cardiology has been consulted because of mildly elevated troponin. She had a chest x-ray on this admission that shows prominent interstitial markings. D-dimer was elevated. She had a CT scan of the chest that is negative for pulmonary embolism. The patient is chest pain free and an EKG reveals normal sinus rhythm without significant ST-T wave changes. LABS: Labs show that she is anemic with a hemoglobin of 6.9, creatinine is 0.5. BNP is mildly elevated at 1080. I believe the troponin could be elevated as a type 2 myocardial infarction and is of no clear clinical significance and does not require further evaluation. I will obtain a 2D echo to assess LV function and wall motion. PAST MEDICAL HISTORY: Significant for hypertension. MEDICATIONS: Medications at home included: Lotrel, K-Dur, Protonix, Neurontin, Colace, and tramadol. ALLERGIES: She has multiple drug allergies they are charted and I reviewed them. FAMILY HISTORY: Negative for premature coronary artery disease. SOCIAL HISTORY: She denies current smoking, EtOH abuse or drug abuse. REVIEW OF SYSTEMS: HEENT is unremarkable. CARDIAC as described above. RESPIRATORY as described above. GI as described above. GENITOURINARY negative. ALLERGY none. SKIN negative. MUSCULOSKELETAL exam significant for arthritis. PSYCHOSOCIAL: Negative. CONSTITUTIONAL negative. ONCOLOGICAL significant for metastatic pancreatic cancer. EXAM: Heart rate is 100 beats per minute. Blood pressure is 150/86, respirations 18, O2 saturation is 94% on 5 L. There is no jugular venous distention. CHEST exam reveals diminished air entry at the bases with without any crackles or rhonchi. HEART exam reveals first and second heart sounds and a systolic murmur at the left lower sternal border. ABDOMEN: Soft. Exam of EXTREMITIES reveals bilateral 2+ pitting edema. Peripheral pulses are palpable. An EKG shows sinus rhythm, normal axis, normal intervals. Labs show patient is anemic with a hemoglobin of 6.9, potassium is 3.8, creatinine is 0.5. Troponins are mildly elevated. ASSESSMENT: 1. Elevated troponin of no clear clinical significance. 2. Metastatic pancreatic cancer. 3. Severe anemia. 4. Bilateral leg edema. PLAN: I will obtain a 2D echo to document her LV function. Will give IV Lasix given the leg edema and we will follow the patient with interest and adjust her therapies as needed. [place] / BLADE: [id number] /
--- NOTE | 2021-02-17 12:39 | P.CONS ---
History of Present Illness - Reason for Consult Consult date: 02/17/21 Pancreatic Cancer on Chemo Requesting physician: Marvin Guy - Chief Complaint Shortness of Breath - History of Present Illness Nannette is well known to our practice, primary oncologist Dr. Anand Muller. She has multiple hospitalizations since diagnosis due to lack of adherence to supportive care plans placed to control her symptoms as outpatient. Recurrent abdominal pain, decreased PO intake and this admission presenting with shortness of breath, however objectively requiring oxygenation at 5L today. Hemoglobin 6.9, a unit PRBC has been ordered. Review of Systems All systems: negative Constitutional: Reports as per HPI Past Medical History Past Medical History: Cancer, GERD/Reflux, Hyperlipidemia, Hypertension, Musculoskeletal Disorder, Osteoarthritis (OA) Additional Past Medical History / Comment(s): Osteoporosis, Lower Back Pain, Sciatica. TOLD YEARS AGO SHE HAD HEART MURMUR- NO TX, HX ACUTE BRONCHITIS(SMOKER), August 2020 pancreatic cancer. Current head tremor. Feet, ankles and legs swollen. History of Any Multi-Drug Resistant Organisms: None Reported Past Surgical History: Orthopedic Surgery, Tubal Ligation Additional Past Surgical History / Comment(s): 2 pins in right hip-dislocated 1975. Past Anesthesia/Blood Transfusion Reactions: No Reported Reaction Past Psychological History: Anxiety, Depression Smoking Status: Current every day smoker Past Alcohol Use History: None Reported Additional Past Alcohol Use History / Comment(s): Started smoking at age 17(1971), now smokes <1 ppd. Quit drinking August 2020, had been drinking 3-4 beers daily. Past Drug Use History: None Reported Additional Drug Use History / Comment(s): Quit drinking 09/07/20 was drinking 3-4 beers a day - Past Family History Mother Family Medical History: Liver Disease Father Family Medical History: Cancer Additional Family Medical History / Comment(s): Lung or liver cancer. Medications and Allergies Home Medications Medication Instructions Recorded Confirmed Type Docusate [Colace] 200 mg PO DAILY #30 cap 01/06/21 02/16/21 Rx Gabapentin [Neurontin] 300 mg PO BID 02/08/21 02/16/21 History Potassium Chloride ER [K-Dur 10] 10 meq PO BID 02/08/21 02/16/21 History traMADol HCL 50 mg PO Q6H PRN 02/08/21 02/16/21 History Lactulose 20 gm PO DAILY 4 Days #120 ml 02/12/21 02/16/21 Rx Magnesium Oxide [Mag-Ox] 400 mg PO BID 30 Days #60 tab 02/12/21 02/16/21 Rx Pantoprazole Sodium [Protonix] 40 mg PO DAILY #30 tab 02/12/21 02/16/21 Rx amLODIPine BESYLATE/BENAZEPRIL 1 cap PO DAILY 02/16/21 02/16/21 History [Lotrel 10-40 MG] Allergies Allergy/AdvReac Type Severity Reaction Status Date / Time amylase [From Zenpep] AdvReac stomach Verified 02/16/21 14:40 pain erythromycin base AdvReac Nausea Verified 02/16/21 14:40 [Erythromycin Base] gabapentin AdvReac Hallucinati Verified 02/16/21 14:40 ons lipase [From Zenpep] AdvReac stomach Verified 02/16/21 14:40 pain protease [From Zenpep] AdvReac stomach Verified 02/16/21 14:40 pain Physical Exam Vitals: Vital Signs Temp Pulse Pulse Resp BP BP Pulse Ox 02/17/21 07:54 110 H 02/17/21 07:48 98.1 F 02/17/21 07:40 102 H 02/17/21 06:31 79 20 156/87 94 L 02/17/21 00:00 98.1 F 89 20 130/81 93 L 02/16/21 21:31 70 02/16/21 21:20 74 02/16/21 20:00 97.4 F L 68 18 154/84 93 L 02/16/21 19:02 75 16 154/87 98 02/16/21 15:23 76 18 171/97 100 02/16/21 13:16 80 20 158/102 94 L 02/16/21 13:08 80 02/16/21 13:00 76 02/16/21 12:21 93 L 02/16/21 11:06 97.6 F 64 18 140/96 85 L Intake and Output 02/16/21 02/17/21 02/17/21 22:59 06:59 14:59 Intake Total 240 Balance 240 Intake: Oral 240 Other: # Voids 1 Weight 40.37 kg - Constitutional General appearance: cooperative, mild distress - EENT Eyes: EOMI ENT: NA/AT - Neck Neck: lymphadenopathy - Respiratory Respiratory: bilateral: diminished foot Peripheral Edema: right: 2+, left: 1+, bilateral: Other (pedal) - Gastrointestinal General gastrointestinal: soft, tenderness - Integumentary Integumentary: pale - Musculoskeletal Musculoskeletal: generalized weakness - Psychiatric Psychiatric: A&O x's 3 Results CBC & Chem 7: 02/17/21 06:45 02/17/21 06:00 Labs: Abnormal Lab Results - Last 24 Hours (Table) 02/16/21 02/16/21 02/16/21 Range/Units 11:56 11:56 11:56 WBC 12.8 H (3.8-10.6) k/uL RBC 2.67 L (3.80-5.40) m/uL Hgb 7.6 L (11.4-16.0) gm/dL Hct 23.3 L (34.0-46.0) % RDW 21.7 H (11.5-15.5) % Plt Count 133 L D (150-450) k/uL Neutrophils # (Manual) 10.88 H (1.3-7.7) k/uL Nucleated RBCs 2 H (0-0) /100 WBC PT 12.1 H (9.0-12.0) sec INR 1.2 H (<1.2) D-Dimer (<0.60) mg/L FEU Sodium (137-145) mmol/L Chloride (98-107) mmol/L Carbon Dioxide (22-30) mmol/L BUN (7-17) mg/dL Glucose (74-99) mg/dL Calcium (8.4-10.2) mg/dL Alkaline Phosphatase (38-126) U/L Troponin I (0.000-0.034) ng/mL Total Protein (6.3-8.2) g/dL Albumin (3.5-5.0) g/dL Amylase (30-110) U/L Urine Appearance Cloudy H (Clear) Ur Specific Cerulean 1.050 H (1.001-1.035) Urine Protein 1+ H (Negative) Ur Leukocyte Esterase Large H (Negative) Urine RBC 23 H (0-5) /hpf Urine WBC 31 H (0-5) /hpf Hyaline Casts 3 H (0-2) /lpf Urine Mucus Few H (None) /hpf 02/16/21 02/16/21 02/16/21 Range/Units 11:56 11:56 13:21 WBC (3.8-10.6) k/uL RBC (3.80-5.40) m/uL Hgb (11.4-16.0) gm/dL Hct (34.0-46.0) % RDW (11.5-15.5) % Plt Count (150-450) k/uL Neutrophils # (Manual) (1.3-7.7) k/uL Nucleated RBCs (0-0) /100 WBC PT (9.0-12.0) sec INR (<1.2) D-Dimer 5.79 H (<0.60) mg/L FEU Sodium 132 L (137-145) mmol/L Chloride 111 H (98-107) mmol/L Carbon Dioxide 19 L (22-30) mmol/L BUN 6 L (7-17) mg/dL Glucose 141 H (74-99) mg/dL Calcium 7.4 L (8.4-10.2) mg/dL Alkaline Phosphatase 302 H (38-126) U/L Troponin I 0.278 H* (0.000-0.034) ng/mL Total Protein 4.5 L (6.3-8.2) g/dL Albumin 1.7 L (3.5-5.0) g/dL Amylase <30 L (30-110) U/L Urine Appearance (Clear) Ur Specific Cerulean (1.001-1.035) Urine Protein (Negative) Ur Leukocyte Esterase (Negative) Urine RBC (0-5) /hpf Urine WBC (0-5) /hpf Hyaline Casts (0-2) /lpf Urine Mucus (None) /hpf 02/16/21 02/17/21 02/17/21 Range/Units 18:47 06:00 06:45 WBC (3.8-10.6) k/uL RBC 2.43 L (3.80-5.40) m/uL Hgb 6.9 L* (11.4-16.0) gm/dL Hct 21.2 L (34.0-46.0) % RDW 22.7 H (11.5-15.5) % Plt Count 149 L (150-450) k/uL Neutrophils # (Manual) (1.3-7.7) k/uL Nucleated RBCs (0-0) /100 WBC PT (9.0-12.0) sec INR (<1.2) D-Dimer (<0.60) mg/L FEU Sodium 133 L (137-145) mmol/L Chloride 111 H (98-107) mmol/L Carbon Dioxide 18 L (22-30) mmol/L BUN 5 L (7-17) mg/dL Glucose 129 H (74-99) mg/dL Calcium 7.2 L (8.4-10.2) mg/dL Alkaline Phosphatase 282 H (38-126) U/L Troponin I 0.311 H* (0.000-0.034) ng/mL Total Protein 4.3 L (6.3-8.2) g/dL Albumin 1.6 L (3.5-5.0) g/dL Amylase (30-110) U/L Urine Appearance (Clear) Ur Specific Cerulean (1.001-1.035) Urine Protein (Negative) Ur Leukocyte Esterase (Negative) Urine RBC (0-5) /hpf Urine WBC (0-5) /hpf Hyaline Casts (0-2) /lpf Urine Mucus (None) /hpf CT scan - chest: report reviewed Assessment and Plan (1) Abdominal pain Current Visit: Yes Status: Acute Priority: High Code(s): R10.9 - UNSPECIFIED ABDOMINAL PAIN SNOMED Code(s): 17941487 (2) Pancreatic cancer Current Visit: Yes Status: Acute Priority: High Code(s): C25.9 - MALIGNANT NEOPLASM OF PANCREAS, UNSPECIFIED SNOMED Code(s): 249542288 Plan: We had a long discussion with patient today with her recurrent hospitalizations this has resulted in inefficient treatment of her cancer, and a concern is the progression of her cancer. She has only completed one cycle, others have been delayed and/or missed due to hospitalization. At this time continue with supportive care and once stabilized will ask pain management if they are able to move forward with plexus block for pain control. Physician Attest: I have completed the full history and physical and agree with above dictation, dictated as a ascribe.
--- NOTE | 2021-02-17 12:53 | P.PN ---
Subjective This is a pleasant 65 years old -[place] female with past medical history of pancreatic cancer, abdominal pain, diabetes mellitus, hypertension, hyperlipidemia, osteoarthritis, chronic back pain with sciatica. Recurrent admissions for abdominal pain. Presents with dyspnea for 1 week duration associated with coughing and little yellow phlegm and but no chest pain. No urinary symptoms, she has chronic abdominal pain. Also she is usually constipated but over the last few days if she is having loose bowel movement about twice per day but no vomiting. She smokes about half pack per day, she wants to quit. No alcohol or illicit drugs She looks weak and cachectic Patient was in the hospital about 1 week ago, patient has multiple hospi talization over the last 3 months She is mildly tachycardic and hypoxic at 85% on room air. She is saturating 94% on 5 L oxygen via nasal cannula Labs showing WBC 12.8 and 9.4 while hemoglobin 7.6 and 6.9, platelets 133 and 149. Sodium 133, rest of the BMP is unremarkable. Liver enzymes not elevated. Troponin elevated at 0.2 and 0.3 Urine analysis is suspicious for infection Coronavirus not detected. chest x-ray showing bilateral basilar infiltrates CTA of the chest: No PE. Basilar mild pulmonary infiltrates In the emergency room patient was started on Levaquin and IV vancomycin, one- time dose of Lasix and normal saline at 60 mL per hour review Of systems: CONSTITUTIONAL: No fever, no malaise, no fatigue. HEENT: No recent visual problems or hearing problems. Denied any sore throat. CARDIOVASCULAR: No orthopnea, PND, no palpitations, no syncope. PULMONARY: No chest wall tenderness, no hemoptysis. GASTROINTESTINAL: No diarrhea, no nausea, no vomiting, no abdominal pain. Normoactive bowel sounds. NEUROLOGICAL: No headaches, no weakness, no numbness. HEMATOLOGICAL: Denies any bleeding or petechiae. GENITOURINARY: Denies any burning micturition, frequency, or urgency. MUSCULOSKELETAL/RHEUMATOLOGICAL: Denies any joint pain, swelling, or any muscle pain. ENDOCRINE: Denies any polyuria or polydipsia. Active Medications Generic Name Dose Route Start Last Admin Trade Name Freq PRN Reason Stop Dose Admin Albuterol/Ipratropium 3 ml 02/16/21 20:00 02/17/21 11:52 Ipratropium-Albuterol 3 Ml Neb INHALATION 3 ml RT-QID JUAN Administration Albuterol/Ipratropium 3 ml 02/16/21 16:03 Ipratropium-Albuterol 3 Ml Neb INHALATION RT-Q4H PRN shortness of breath Amlodipine Besylate 10 mg 02/17/21 09:00 02/17/21 08:43 Amlodipine 10 Mg Tab PO 10 mg DAILY JUAN Administration Docusate Sodium 200 mg 02/17/21 09:00 02/17/21 08:43 Docusate 100 Mg Cap PO 200 mg DAILY JUAN Administration Gabapentin 300 mg 02/16/21 21:00 02/17/21 08:43 Gabapentin 300 Mg Cap PO 300 mg BID JUAN Administration Heparin Sodium (Porcine) 5,000 unit 02/16/21 21:00 02/17/21 08:25 Heparin Sodium,Porcine/Pf 5,000 Unit/0.5 Ml Syringe SQ Not Given Q12HR JUAN Hydromorphone HCl 0.5 mg 02/16/21 16:10 02/17/21 10:38 Hydromorphone 0.5 Mg/0.5 Ml Syringe IVP 0.5 mg Q3HR PRN Administration Severe Pain Sodium Chloride 1,000 mls @ 60 mls/hr 02/16/21 16:15 02/17/21 10:38 Saline 0.9% IV 60 mls/hr .[id number] JUAN Administration Levofloxacin 750 mg/ IV 150 mls @ 100 mls/hr 02/17/21 17:00 Solution IVPB DAILY@1700 JUAN Vancomycin HCl 750 mg/ Sodium 250 mls @ 125 mls/hr 02/17/21 13:00 Chloride IVPB Q16H [facility] Protocol Lactulose 20 gm 02/17/21 09:00 02/17/21 08:44 Lactulose 20 Gm/30 Ml Cup PO 20 gm DAILY JUAN Administration Lisinopril 40 mg 02/17/21 09:00 02/17/21 08:43 Lisinopril 20 Mg Tab PO 40 mg DAILY JUAN Administration Magnesium Oxide 400 mg 02/16/21 21:00 02/17/21 08:43 Magnesium Oxide 400 Mg Tab PO 400 mg BID JUAN Administration Miscellaneous Information 1 each 02/16/21 16:03 Pneumonia Protocol Utilized 1 Each Misc PO ONCE PRN Per Protocol Pantoprazole Sodium 40 mg 02/17/21 09:00 02/17/21 08:43 Pantoprazole 40 Mg Tablet PO 40 mg DAILY JUAN Administration Potassium Chloride 10 meq 02/16/21 21:00 02/17/21 08:43 Potassium Chloride Er 10 Meq Tab.Er.Prt PO 10 meq BID JUAN Administration Tramadol HCl 50 mg 02/16/21 16:05 Tramadol 50 Mg Tab PO Q6H PRN Pain Objective - Vital Signs Vital signs: Vital Signs Temp 98.4 F 02/17/21 10:43 Pulse 69 02/17/21 12:39 Resp 16 02/17/21 12:39 BP 144/74 02/17/21 12:39 Pulse Ox 97 02/17/21 12:39 Intake & Output 02/16/21 02/17/21 02/17/21 18:59 06:59 18:59 Intake Total 240 Balance 240 Weight 40.37 kg 40.37 kg Intake: Oral 240 Other: # Voids 1 - Exam -GENERAL: The patient is alert and oriented x3, not in any acute distress. Cachectic and thin built HEENT: Pupils are round and equally reacting to light. EOMI. No scleral icterus. No conjunctival pallor. Normocephalic, atraumatic. No pharyngeal erythema. No thyromegaly. CARDIOVASCULAR: S1 and S2 present. No murmurs, rubs, or gallops. PULMONARY: Chest is clear to auscultation, no wheezing or crackles. Bilateral crepitation A-BDOMEN: Soft, chronic epigastric tenderness, nondistended, normoactive bowel sounds. No palpable organomegaly. MUSCULOSKELETAL: No joint swelling or deformity. EXTREMITIES: No cyanosis, clubbing, or pedal edema. NEUROLOGICAL: Gross neurological examination did not reveal any focal deficits. SKIN: No rashes. No petechiae - Labs CBC & Chem 7: 02/17/21 06:45 02/17/21 06:00 Labs: Abnormal Lab Results - Last 24 Hours (Table) 02/16/21 02/16/21 02/16/21 Range/Units 11:56 11:56 11:56 WBC 12.8 H (3.8-10.6) k/uL RBC (3.80-5.40) m/uL Hgb (11.4-16.0) gm/dL Hct (34.0-46.0) % RDW (11.5-15.5) % Plt Count (150-450) k/uL Neutrophils # (Manual) 10.88 H (1.3-7.7) k/uL Lymphocytes # (Manual) (1.0-4.8) k/uL Metamyelocytes # (Man) (0) k/uL Nucleated RBCs 2 H (0-0) /100 WBC D-Dimer 5.79 H (<0.60) mg/L FEU Sodium (137-145) mmol/L Chloride (98-107) mmol/L Carbon Dioxide (22-30) mmol/L BUN (7-17) mg/dL Glucose (74-99) mg/dL Calcium (8.4-10.2) mg/dL Alkaline Phosphatase (38-126) U/L Troponin I (0.000-0.034) ng/mL Total Protein (6.3-8.2) g/dL Albumin (3.5-5.0) g/dL Urine Appearance Cloudy H (Clear) Ur Specific [place] 1.050 H (1.001-1.035) Urine Protein 1+ H (Negative) Ur Leukocyte Esterase Large H (Negative) Urine RBC 23 H (0-5) /hpf Urine WBC 31 H (0-5) /hpf Hyaline Casts 3 H (0-2) /lpf Urine Mucus Few H (None) /hpf 02/16/21 02/16/21 02/17/21 Range/Units 13:21 18:47 06:00 WBC (3.8-10.6) k/uL RBC (3.80-5.40) m/uL Hgb (11.4-16.0) gm/dL Hct (34.0-46.0) % RDW (11.5-15.5) % Plt Count (150-450) k/uL Neutrophils # (Manual) (1.3-7.7) k/uL Lymphocytes # (Manual) (1.0-4.8) k/uL Metamyelocytes # (Man) (0) k/uL Nucleated RBCs (0-0) /100 WBC D-Dimer (<0.60) mg/L FEU Sodium 133 L (137-145) mmol/L Chloride 111 H (98-107) mmol/L Carbon Dioxide 18 L (22-30) mmol/L BUN 5 L (7-17) mg/dL Glucose 129 H (74-99) mg/dL Calcium 7.2 L (8.4-10.2) mg/dL Alkaline Phosphatase 282 H (38-126) U/L Troponin I 0.278 H* 0.311 H* (0.000-0.034) ng/mL Total Protein 4.3 L (6.3-8.2) g/dL Albumin 1.6 L (3.5-5.0) g/dL Urine Appearance (Clear) Ur Specific [place] (1.001-1.035) Urine Protein (Negative) Ur Leukocyte Esterase (Negative) Urine RBC (0-5) /hpf Urine WBC (0-5) /hpf Hyaline Casts (0-2) /lpf Urine Mucus (None) /hpf 02/17/21 Range/Units 06:45 WBC (3.8-10.6) k/uL RBC 2.43 L (3.80-5.40) m/uL Hgb 6.9 L* (11.4-16.0) gm/dL Hct 21.2 L (34.0-46.0) % RDW 22.7 H (11.5-15.5) % Plt Count 149 L (150-450) k/uL Neutrophils # (Manual) 8.20 H (1.3-7.7) k/uL Lymphocytes # (Manual) 0.75 L (1.0-4.8) k/uL Metamyelocytes # (Man) 0.09 H (0) k/uL Nucleated RBCs 5 H (0-0) /100 WBC D-Dimer (<0.60) mg/L FEU Sodium (137-145) mmol/L Chloride (98-107) mmol/L Carbon Dioxide (22-30) mmol/L BUN (7-17) mg/dL Glucose (74-99) mg/dL Calcium (8.4-10.2) mg/dL Alkaline Phosphatase (38-126) U/L Troponin I (0.000-0.034) ng/mL Total Protein (6.3-8.2) g/dL Albumin (3.5-5.0) g/dL Urine Appearance (Clear) Ur Specific [place] (1.001-1.035) Urine Protein (Negative) Ur Leukocyte Esterase (Negative) Urine RBC (0-5) /hpf Urine WBC (0-5) /hpf Hyaline Casts (0-2) /lpf Urine Mucus (None) /hpf Microbiology - Last 24 Hours (Table) 02/16/21 11:56 Urine Culture - Preliminary Urine,Clean Catch Assessment and Plan Assessment: Acute hospital-acquired Bilateral pneumonia Acute hypoxic respiratory failure secondary to above Elevated troponin, could be due to demand/supply mismatch area to rule out cardiac causes Abnormal UA suspicious for urinary tract infection Chronic Anemia with recent mild worsening Pancreatic cancer Chronic pancreatitis with ongoing chronic abdominal pain Chronic leukocytosis Chronic hyponatremia Mild calories protein malnutrition Hypertension Hyperlipidemia Diabetes mellitus Osteoarthritis Chronic back pain with sciatic Plan: This is a pleasant 66 years old female who presents with multiple problems including pneumonia, hypoxia, elevated troponin and drop in hemoglobin Continue with antibiotics and follow-up culture. currently on IV vancomycin and Levaquin. . Infectious disease consult. Continue with gentle hydration No aspirin for severe low hemoglobin. Follow-up with cardiology team recommendation for consulted. Check echocardiogram Check stool last days to rule out chronic pancreatitis and possible pancreatic insufficiency. Rule out C. diff anemia workup. 1 unit of blood is ordered , hematology/oncology team consult will follow the recommendation Labs and medication were reviewed.. Continue same treatment. Continue with symptomatic treatment. Resume home medication. Monitor lytes and vitals. DVT and GI prophylaxis. Further recommendations depends on the clinical course of the patient DVT prophylaxis:no Subcutaneous heparin review of her severe anemia GI Prophylaxis: Ppi Prognosis is guarded
[2021-02-17] MEDS: VANCOMYCIN 750 MG in SODIUM CHLORIDE 0.9% 250 ML IVPB SCH (13:04)
--- NOTE | 2021-02-17 14:03 | US ---
EXAMINATION TYPE: US venous doppler duplex LE BI DATE OF EXAM: 02/17/2021 1:40 PM COMPARISON: NONE CLINICAL HISTORY: edema. SIDE PERFORMED: Bilateral TECHNIQUE: The lower extremity deep venous system is examined utilizing real time linear array sonog augustina with graded compression, doppler sonography and color-flow sonography. VESSELS IMAGED: Common Femoral Vein Deep Femoral Vein Greater Saphenous Vein * Femoral Vein Popliteal Vein Small Saphenous Vein * Proximal Calf Veins (* superficial vessels) Complex fluid collection seen in the right groin measuring 3.7x1.8x2.3cm Left Pop fossa contains fluid measuring 3.6x2.3x1.0cm Right Leg: Negative for DVT Left Leg: Negative for DVT, Plaque noted in CFV A IMPRESSION: 1. No diagnostic evidence of DVT. 2. Complex fluid collection nonspecific right groin and left popliteal fossa. Correlate clinically. P opliteal fossa collection likely related to the popliteal fossa cyst. Left groin complex collection i s nonspecific could be on the basis of hematoma. Adenopathy, mass or abscess not excluded correlate c linically.
[2021-02-17 15:10] LABS: % Iron Saturation 41.65 (12.00-45.00); Folate, Serum 3.8 ng/mL (4.40-31.00)
--- NOTE | 2021-02-17 17:00 | ECHOF ---
Referral Reason:TROP ELEVATED MEASUREMENTS -------- HEIGHT: 170.2 cm WEIGHT: 40.4 kg BP: 156/87 RVIDd: 2.6 cm (< 3.3) IVSd: 1.1 cm (0.6 - 1.1) LVIDd: 4.0 cm (3.9 - 5.3) LVPWd: 1.0 cm (0.6 - 1.1) IVSs: 1.4 cm LVIDs: 2.5 cm LVPWs: 1.3 cm LA Diam: 2.7 cm (2.7 - 3.8) Ao Diam: 2.3 cm (2.0 - 3.7) AV Cusp: 1.2 cm (1.5 - 2.6) MV EXCURSION: 13.666 mm (> 18.000) MV EF SLOPE: 77 mm/s (70 - 150) EPSS: 1.7 cm MV E Andrea: 0.71 m/s MV DecT: 363 ms MV A Andrea: 0.93 m/s MV E/A Ratio: 0.76 RAP: 5.00 mmHg RVSP: 24.64 mmHg FINDINGS -------- Sinus rhythm. This was a technically difficult study with suboptimal views. The left ventricular size is normal. There is borderline concentric left ventricular hypertrophy. Overall left ventricular systolic function is normal with, an EF between 60 - 65 %. The right ventricle is normal in size. The left atrium is normal in size. The right atrium is normal in size. The aortic valve is trileaflet, and appears structurally normal. No aortic stenosis or regurgitation. Mild mitral annular calcification present. Mild mitral regurgitation is present. The tricuspid valve was not well visualized. Trace/mild (physiologic) pulmonic regurgitation. The aortic root size is normal. IVC Not well visulized. There is no pericardial effusion. Large Pleural Effusion. CONCLUSIONS -------- 1. The left ventricular size is normal. 2. There is borderline concentric left ventricular hypertrophy. 3. Overall left ventricular systolic function is normal with, an EF between 60 - 65 %. 4. The aortic valve is trileaflet, and appears structurally normal. No aortic stenosis or regurgitati on. 5. Mild mitral annular calcification present. 6. Mild mitral regurgitation is present. 7. Trace/mild (physiologic) pulmonic regurgitation. 8. There is no pericardial effusion. 9. Large Pleural Effusion. PLANT WORKER: Laila Carter RDCS
--- NOTE | 2021-02-17 18:24 | CDI ---
Documentation Clarification Form Date: 02/17/2021 06:11:54 PM From: Tania Valiente RN CCDS Admit Date: 02/16/2021 04:24:00 PM Patient Name: Nannette Morel Visit Number: [id number] Discharge Date: ATTENTION: The Clinical Documentation Specialists (CDI) and [facility] Coding Staff appreciate your assistance in clarifying documentation. Please respond to the clarification below the line at the bottom and electronically sign. The CDI & [facility] Coding staff will review the response and follow-up if needed. Please note: Queries are made part of the Legal Health Record. If you have any questions, please contact the author of this message via ITS. Dr. Rodriguez E Sheet Conflicting documentation has been found in the medical record. As attending physician, please provide clarification. Severe protein calorie malnutrition, H&P, 02/16. Mild calorie protein malnutrition, Medicine progress note, 02/17. History/Risk Factors: 66-year-old female presents to the ED with shortness of breath and abdominal pain. Medical history: Pancreatic cancer, HTN, HLD. 02/16, H&P. Clinical Indicators: 02/17 Dietary Assessment: Physical findings Underweight; weight 40.37kg, height 5ft 7inc, Calculated [place] body weight 61.235 BMI 13.9kg Nutrition Care: High protein, high kcal supplement. Treatment: 02/17 Magic cup BID, monitor supplement intake and po intake Please clarify which diagnosis is most appropriate: [ ] Severe protein calorie malnutrition [ ] Mild protein calorie malnutrition [ ] Other (please specify) [ ] Unable to determine (Template Last Revised: May 2020) Severe protein calorie malnutrition MTDD
--- NOTE | 2021-02-17 18:46 | CDI ---
Documentation Clarification Form Date: 02/17/2021 06:25:56 PM From: Tania Valiente RN CCDS Admit Date: 02/16/2021 04:24:00 PM Patient Name: Nannette Morel Visit Number: [id number] Discharge Date: ATTENTION: The Clinical Documentation Specialists (CDI) and [facility] Coding Staff appreciate your assistance in clarifying documentation. Please respond to the clarification below the line at the bottom and electronically sign. The CDI & [facility] Coding staff will review the response and follow-up if needed. Please note: Queries are made part of the Legal Health Record. If you have any questions, please contact the author of this message via ITS. Dr. Michael Doss, Hospital acquired pneumonia is documented 02/17, medicine progress note. Additional clarification regarding the type of pneumonia is requested. History/Risk Factors: History/Risk Factors: 66-year-old female presents to the ED with shortness of breath and abdominal pain. Medical history: Pancreatic cancer, recent admission for pancreatitis, HTN, HLD. 02/16, H&P. Clinical Indicators: VSS 02/16: B/P 140/96, HR 64, Temp 97.6 Oral F, RR 18, SpO2 85% room air Labs 02/16: Wbc 12.8, Neutrophils 10.88, CTA 02/16: Basilar mild pulmonary infiltrates and atelectasis Lung/Breathing assessment 02/17 medicine note: Pulmonary Treatment: Antibiotics: 10/16 Levaquin 750mg IVPB x1; 10/17 to current Levaquin 750mg IVPB Daily, 02/16 Vancomycin 750mg IVPB x 1, 02/17 to current Vancomycin 750mg IVPB Q16H. O2: 02/17 5L nasal cannula Breathing Tx: 02/16 to current Duoneb 0.5mg-3mg/3ml Soln RT Q4H PRN; 02/16 to current Duoneb 0.5mg 3mg / 3ml Soln RT QID JUAN. Please clarify the type of pneumonia, if known: [ ] Gram Negative Bacterial Pneumonia [ ] Other bacteria (please specify) [ ] Other, please specify [ ] Unable to determine (Template Last Revised: May 2020) Gram Negative Bacterial Pneumonia is suspected MTDD
[2021-02-17] MEDS: LEVOFLOXACIN 750MG-D5W PMX 750 MG in DEXTROSE/WATER 1 150ML.BAG IVPB SCH (21:06)
[2021-02-17] MEDS: NICOTINE 14MG/24HR PATCH TRANSDERM SCH (21:06)
[2021-02-17] MEDS: traMADol 50 MG TAB PO PRN (21:07)
[2021-02-17 23:09] LABS: Anisocytosis Moderate; HCT 22.9 % (34.0-46.0); HGB 7.7 gm/dL (11.4-16.0); MCH 29.2 pg (25.0-35.0); MCHC 33.6 g/dL (31.0-37.0); MCV 86.8 fL (80.0-100.0); Mean Platelet Volume 11.5; Platelet Count 137 k/uL (150-450); Poikilocytosis Moderate; RBC 2.64 m/uL (3.80-5.40); RDW 20.6 % (11.5-15.5); WBC 11.8 k/uL (3.8-10.6)
[2021-02-18] MEDS: SODIUM CHLORIDE 0.9% 1,000 ML IV SCH ×2 (00:50→04:42)
[2021-02-18] MEDS: VANCOMYCIN 750 MG in SODIUM CHLORIDE 0.9% 250 ML IVPB SCH ×2 (04:42→21:04)
[2021-02-18] MEDS: HYDROmorphone 0.5 MG/0.5 ML SYRINGE IVP PRN (04:42)
[2021-02-18] MEDS: GABAPENTIN 300 MG CAP PO SCH ×2 (08:08→21:03)
[2021-02-18] MEDS: DOCUSATE 100 MG CAP PO SCH (08:08)
[2021-02-18] MEDS: MAGNESIUM OXIDE 400 MG TAB PO SCH ×2 (08:08→21:03)
[2021-02-18] MEDS: POTASSIUM CHLORIDE ER 10 MEQ TAB.ER.PRT PO SCH ×2 (08:08→21:04)
[2021-02-18] MEDS: lisinopriL 20 MG TAB PO SCH (08:08)
[2021-02-18] MEDS: amLODIPine 10 MG TAB PO SCH (08:08)
[2021-02-18] MEDS: PANTOPRAZOLE 40 MG TABLET PO SCH (08:08)
[2021-02-18] MEDS: NICOTINE 14MG/24HR PATCH TRANSDERM SCH (08:09)
--- NOTE | 2021-02-18 08:29 | P.CONS ---
History of Present Illness - Reason for Consult Consult date: 02/17/21 sepsis Requesting physician: Yvrose Brito - Chief Complaint abd pain and shortness of breath x few days - History of Present Illness History of present illness : Patient is 66-year-old female presented to hospital yesterday morning for evaluation of abdominal pain in this patient who did have a history of pancreatic cancer patient also complaining of shortness of breath w ith underlying history of COPD patient did have a cough which is slightly increased intensity but not able to bring up any sputum denies having any fever or any chills with this and the patient has been evaluated by the ER physician on arrival to the ER patient was afebrile no fever has been recorded subsequently patient was hypoxic with O2 sats of 85% on room air currently 95% 4 L nasal cannula patient did have white count of 12.8 with a left shift repeat vitals are normal as of this morning did have elevated D-dimer creatinine was normal troponin is elevated amylase and lipase are normal urine was positive martinez PCR was negative blood and urine culture has been obtained patient did have a chest x-ray focal opacities seen on the lateral view projecting of the vertebral body patient also have a CT and a gram of the chest no evidence of PE pleural effusion abdominal ascites basilar mild pulmonary infiltrate or atelectasis patient was admitted to the hospital infectious disease was cons ulted with concern for possible sepsis because of high D-dimer patient is currently being treated with vancomycin and Levaquin Review of system: CONSTITUTIONAL: Positive for weakness denies fever. EYES: No complaint. ENT: No complaint. RESPIRATORY: As per history of present illness. CARDIOVASCULAR: No complaint. GENITOURINARY: No complaint. GASTROINTESTINAL: As per history of present illness. MUSCULOSKELETAL: No complaint. INTEGUMENTARY: No complaint. PSYCHOLOGIC: No complaint. ENDOCRINE: No complaint. NEUROLOGIC: No complaint. Past medical history : Reviewed, documented below Past surgical history : Reviewed, documented below Social history: Reviewed, documented below Medications: Reviewed, as documented below EXAMINATION: Vital sigans= Reviewed and documented below GENERAL DESCRIPTION: Elderly female lying in bed, no distress. No tachypnea or accessory muscle of respiration use. HEENT: Shows Pallor , no scleral icterus. Oral mucous membrane is dry. NECK: Trachea central, no thyromegaly. LUNGS: Unlabored breathing. Decrease intensity breath sounds. No wheeze or crac kle. HEART: S1, S2, regular rate and rhythm. ABDOMEN: Soft, no tenderness , guarding or rigidity EXTREMITIES: No edema of feet. SKIN: No rash, no masses palpable. NEUROLOGICAL: The patient is awake, alert, oriented x3, mood and affect normal. LABS AND RADIOLOGY: Reviewed results see below Assessment :1- Patient is a 66-year-old female presented to hospital with abdominal pain also having increasing cough no sputum production in this patient did not have any fever did have mild elevated white count work-up concern for possible atelectasis pneumonia less likely related exerted did have elevated D- dimer and CT gram has been negative for PE with elevated dimer not a pathognomonic lab tests for a sepsis 2-patient with multiple antibiotic allergies that would limit the number of antibiotics safe to use Plan: 1-we will obtain CRP and procalcitonin level try to obtain a sputum for Gram stain and culture 2-May continue Levaquin vancomycin for now 3-gentle IV fluid We will follow on clinical condition and cultures to further adjust medication if needed Thank you for this consultation we will follow the patient along with you Past Medical History Past Medical History: Cancer, GERD/Reflux, Hyperlipidemia, Hypertension, Musculoskeletal Disorder, Osteoarthritis (OA) Additional Past Medical History / Comment(s): Osteoporosis, Lower Back Pain, Sciatica. TOLD YEARS AGO SHE HAD HEART MURMUR- NO TX, HX ACUTE BRONCHITIS(SMOKE R), August 2020 pancreatic cancer. Current head tremor. Feet, ankles and legs swollen. History of Any Multi-Drug Resistant Organisms: None Reported Past Surgical History: Orthopedic Surgery, Tubal Ligation Additional Past Surgical History / Comment(s): 2 pins in right hip-dislocated 1975. Past Anesthesia/Blood Transfusion Reactions: No Reported Reaction Past Psychological History: Anxiety, Depression Smoking Status: Current every day smoker Past Alcohol Use History: None Reported Additional Past Alcohol Use History / Comment(s): Started smoking at age 17(1971), now smokes <1 ppd. Quit drinking August 2020, had been drinking 3-4 beers daily. Past Drug Use History: None Reported Additional Drug Use History / Comment(s): Quit drinking 09/07/20 was drinking 3-4 beers a day - Past Family History Mother Family Medical History: Liver Disease Father Family Medical History: Cancer Additional Family Medical History / Comment(s): Lung or liver cancer. Medications and Allergies Home Medications Medication Instructions Recorded Confirmed Type Docusate [Colace] 200 mg PO DAILY #30 cap 01/06/21 02/16/21 Rx Gabapentin [Neurontin] 300 mg PO BID 02/08/21 02/16/21 History Potassium Chloride ER [K-Dur 10] 10 meq PO BID 02/08/21 02/16/21 History traMADol HCL 50 mg PO Q6H PRN 02/08/21 02/16/21 History Lactulose 20 gm PO DAILY 4 Days #120 ml 02/12/21 02/16/21 Rx Magnesium Oxide [Mag-Ox] 400 mg PO BID 30 Days #60 tab 02/12/21 02/16/21 Rx Pantoprazole Sodium [Protonix] 40 mg PO DAILY #30 tab 02/12/21 02/16/21 Rx amLODIPine BESYLATE/BENAZEPRIL 1 cap PO DAILY 02/16/21 02/16/21 History [Lotrel 10-40 MG] Allergies Allergy/AdvReac Type Severity Reaction Status Date / Time amylase [From Zenpep] AdvReac stomach Verified 02/16/21 14:40 pain erythromycin base AdvReac Nausea Verified 02/16/21 14:40 [Erythromycin Base] gabapentin AdvReac Hallucinati Verified 02/16/21 14:40 ons lipase [From Zenpep] AdvReac stomach Verified 02/16/21 14:40 pain protease [From Zenpep] AdvReac stomach Verified 02/16/21 14:40 pain Physical Exam Vitals: Vital Signs Temp Pulse Pulse Resp BP BP Pulse Ox 02/17/21 10:43 98.4 F 105 H 20 117/77 95 02/17/21 07:54 110 H 02/17/21 07:48 98.1 F 02/17/21 07:40 102 H 02/17/21 06:31 79 20 156/87 94 L 02/17/21 00:00 98.1 F 89 20 130/81 93 L 02/16/21 21:31 70 02/16/21 21:20 74 02/16/21 20:00 97.4 F L 68 18 154/84 93 L 02/16/21 19:02 75 16 154/87 98 02/16/21 15:23 76 18 171/97 100 02/16/21 13:16 80 20 158/102 94 L 02/16/21 13:08 80 02/16/21 13:00 76 02/16/21 12:21 93 L Intake and Output 02/16/21 02/17/21 02/17/21 22:59 06:59 14:59 Intake Total 240 Balance 240 Intake: Oral 240 Other: # Voids 1 Weight 40.37 kg Results CBC & Chem 7: 02/17/21 22:39 02/17/21 06:00 Labs: Abnormal Lab Results - Last 24 Hours (Table) 02/16/21 02/16/21 02/16/21 Range/Units 11:56 11:56 11:56 WBC 12.8 H (3.8-10.6) k/uL RBC 2.67 L (3.80-5.40) m/uL Hgb 7.6 L (11.4-16.0) gm/dL Hct 23.3 L (34.0-46.0) % RDW 21.7 H (11.5-15.5) % Plt Count 133 L D (150-450) k/uL Neutrophils # (Manual) 10.88 H (1.3-7.7) k/uL Lymphocytes # (Manual) (1.0-4.8) k/uL Metamyelocytes # (Man) (0) k/uL Nucleated RBCs 2 H (0-0) /100 WBC PT 12.1 H (9.0-12.0) sec INR 1.2 H (<1.2) D-Dimer (<0.60) mg/L FEU Sodium (137-145) mmol/L Chloride (98-107) mmol/L Carbon Dioxide (22-30) mmol/L BUN (7-17) mg/dL Glucose (74-99) mg/dL Calcium (8.4-10.2) mg/dL Alkaline Phosphatase (38-126) U/L Troponin I (0.000-0.034) ng/mL Total Protein (6.3-8.2) g/dL Albumin (3.5-5.0) g/dL Amylase (30-110) U/L Urine Appearance Cloudy H (Clear) Ur Specific [place] 1.050 H (1.001-1.035) Urine Protein 1+ H (Negative) Ur Leukocyte Esterase Large H (Negative) Urine RBC 23 H (0-5) /hpf Urine WBC 31 H (0-5) /hpf Hyaline Casts 3 H (0-2) /lpf Urine Mucus Few H (None) /hpf 02/16/21 02/16/21 02/16/21 Range/Units 11:56 11:56 13:21 WBC (3.8-10.6) k/uL RBC (3.80-5.40) m/uL Hgb (11.4-16.0) gm/dL Hct (34.0-46.0) % RDW (11.5-15.5) % Plt Count (150-450) k/uL Neutrophils # (Manual) (1.3-7.7) k/uL Lymphocytes # (Manual) (1.0-4.8) k/uL Metamyelocytes # (Man) (0) k/uL Nucleated RBCs (0-0) /100 WBC PT (9.0-12.0) sec INR (<1.2) D-Dimer 5.79 H (<0.60) mg/L FEU Sodium 132 L (137-145) mmol/L Chloride 111 H (98-107) mmol/L Carbon Dioxide 19 L (22-30) mmol/L BUN 6 L (7-17) mg/dL Glucose 141 H (74-99) mg/dL Calcium 7.4 L (8.4-10.2) mg/dL Alkaline Phosphatase 302 H (38-126) U/L Troponin I 0.278 H* (0.000-0.034) ng/mL Total Protein 4.5 L (6.3-8.2) g/dL Albumin 1.7 L (3.5-5.0) g/dL Amylase <30 L (30-110) U/L Urine Appearance (Clear) Ur Specific [place] (1.001-1.035) Urine Protein (Negative) Ur Leukocyte Esterase (Negative) Urine RBC (0-5) /hpf Urine WBC (0-5) /hpf Hyaline Casts (0-2) /lpf Urine Mucus (None) /hpf 02/16/21 02/17/21 02/17/21 Range/Units 18:47 06:00 06:45 WBC (3.8-10.6) k/uL RBC 2.43 L (3.80-5.40) m/uL Hgb 6.9 L* (11.4-16.0) gm/dL Hct 21.2 L (34.0-46.0) % RDW 22.7 H (11.5-15.5) % Plt Count 149 L (150-450) k/uL Neutrophils # (Manual) 8.20 H (1.3-7.7) k/uL Lymphocytes # (Manual) 0.75 L (1.0-4.8) k/uL Metamyelocytes # (Man) 0.09 H (0) k/uL Nucleated RBCs 5 H (0-0) /100 WBC PT (9.0-12.0) sec INR (<1.2) D-Dimer (<0.60) mg/L FEU Sodium 133 L (137-145) mmol/L Chloride 111 H (98-107) mmol/L Carbon Dioxide 18 L (22-30) mmol/L BUN 5 L (7-17) mg/dL Glucose 129 H (74-99) mg/dL Calcium 7.2 L (8.4-10.2) mg/dL Alkaline Phosphatase 282 H (38-126) U/L Troponin I 0.311 H* (0.000-0.034) ng/mL Total Protein 4.3 L (6.3-8.2) g/dL Albumin 1.6 L (3.5-5.0) g/dL Amylase (30-110) U/L Urine Appearance (Clear) Ur Specific [place] (1.001-1.035) Urine Protein (Negative) Ur Leukocyte Esterase (Negative) Urine RBC (0-5) /hpf Urine WBC (0-5) /hpf Hyaline Casts (0-2) /lpf Urine Mucus (None) /hpf
[2021-02-18 08:59] LABS: African American GFR (CKD) >90 (>60 ml/min/1.73 sqM); Anion Gap 4 mmol/L; Blood Urea Nitrogen 4 mg/dL (7-17); Calcium 7.1 mg/dL (8.4-10.2); Carbon Dioxide 18 mmol/L (22-30); Chloride 111 mmol/L (98-107); Glucose 134 mg/dL (74-99); Non-African American GFR(CKD) >90 (>60 ml/min/1.73 sqM); Sodium 133 mmol/L (137-145)
[2021-02-18] MEDS: IPRATROPIUM-ALBUTEROL 3 ML NEB INHALATION SCH ×4 (09:15→20:08)
[2021-02-18] MEDS ORDERED: FUROSEMIDE 10 MG/ML 4 ML VIAL IV STA (09:42)
--- NOTE | 2021-02-18 10:21 | P.PN ---
Subjective Progress Note Date: 02/18/21 Principal diagnosis: hypoxia, SOB In f/u today pt states she sat in chair, ate breakfast. She cont to have BLE swelling, pain in legs is less, generalized abd pain is persistent but improved, no N,V, no documented BM. Objective - Vital Signs Vital signs: Vital Signs Temp 98.2 F 02/18/21 08:00 Pulse 88 02/18/21 09:27 Resp 18 02/18/21 09:27 BP 116/79 02/18/21 08:00 Pulse Ox 94 L 02/18/21 08:00 Intake & Output 02/17/21 02/18/21 02/18/21 18:59 06:59 18:59 Intake Total 0 1556 240 Balance 0 1556 240 Weight 40.37 kg 54.8 kg Intake: Oral 1280 240 Blood Product 0 276 Rc Pheresis 2 As3 Unit 0 276 [id number] Other: # Voids 2 - Constitutional General appearance: Present: cooperative, no acute distress, thin - EENT Eyes: Present: anicteric sclerae, EOMI ENT: Present: hearing grossly normal - Respiratory Respiratory: bilateral: diminished - Cardiovascular Heart sounds: normal: S1, S2 - Peripheral edema leg Peripheral Edema: bilateral: 1+, Pitting - Gastrointestinal General gastrointestinal: Present: normal bowel sounds, soft, tenderness (gen eralized, greatest LUQ) - Neurologic Neurologic: Present: CNII-XII intact - Musculoskeletal Musculoskeletal: Present: generalized weakness, strength equal bilaterally - Psychiatric Psychiatric: Present: A&O x's 3, appropriate affect, intact judgment & insight - Labs CBC & Chem 7: 02/17/21 22:39 02/18/21 08:20 Labs: Abnormal Lab Results - Last 24 Hours (Table) 02/17/21 02/17/21 02/17/21 Range/Units 06:00 10:33 22:39 WBC 11.8 H (3.8-10.6) k/uL RBC 2.64 L (3.80-5.40) m/uL Hgb 7.7 L (11.4-16.0) gm/dL Hct 22.9 L (34.0-46.0) % RDW 20.6 H (11.5-15.5) % Plt Count 137 L (150-450) k/uL Sodium (137-145) mmol/L Chloride (98-107) mmol/L Carbon Dioxide (22-30) mmol/L BUN (7-17) mg/dL Glucose (74-99) mg/dL Calcium (8.4-10.2) mg/dL Iron 38 L (50-170) ug/dL TIBC 91 L (228-460) ug/dL Transferrin 65.0 L (204.0-354.0) mg/dL Ferritin 882.0 H (10.0-291.0) ng/mL Vitamin B12 1656.0 H (200.0-944.0) pg/mL Folate 3.80 L (4.40-31.00) ng/mL Crossmatch See Detail 02/18/21 Range/Units 08:20 WBC (3.8-10.6) k/uL RBC (3.80-5.40) m/uL Hgb (11.4-16.0) gm/dL Hct (34.0-46.0) % RDW (11.5-15.5) % Plt Count (150-450) k/uL Sodium 133 L (137-145) mmol/L Chloride 111 H (98-107) mmol/L Carbon Dioxide 18 L (22-30) mmol/L BUN 4 L (7-17) mg/dL Glucose 134 H (74-99) mg/dL Calcium 7.1 L (8.4-10.2) mg/dL Iron (50-170) ug/dL TIBC (228-460) ug/dL Transferrin (204.0-354.0) mg/dL Ferritin (10.0-291.0) ng/mL Vitamin B12 (200.0-944.0) pg/mL Folate (4.40-31.00) ng/mL Crossmatch Microbiology - Last 24 Hours (Table) 02/16/21 18:47 Blood Culture - Preliminary Blood No Growth after 24 hours 02/16/21 11:56 Urine Culture - Preliminary Urine,Clean Catch - Imaging and Cardiology Venous US: report reviewed Assessment and Plan (1) Abdominal pain Narrative/Plan: Chronic, 2/2 pancreatitis, adenocarcinoma. Pt is fearful of taking long acting pain meds and certain narcotics at home. Not certain if pancreatic enzymes are being utilized to maximum potential. Pain mgmt consulted for celiac plexus nerve block. Current Visit: Yes Status: Acute Priority: High Code(s): R10.9 - UNSPECIFIED ABDOMINAL PAIN SNOMED Code(s): 18022948 (2) Pancreatic cancer Narrative/Plan: Pt has only had 1 cycle of neoadjuvant chemo. Ordered CT AP to evaluate cancer status. If pt has progressed we will have to plan a family meeting to discuss treatment intent and pt goals. If no progression not sure if pt would still be considered a candidate for surgery or if she can attempt chemo due to poor PS. Will try to manage her symptoms and see if that can improve PS. Current Visit: Yes Status: Acute Priority: High Code(s): C25.9 - MALIGNANT NEOPLASM OF PANCREAS, UNSPECIFIED SNOMED Code(s): 180989318 (3) Pneumonia Narrative/Plan: Pt requiring O2 at this time, stable, not progressive. ID following, abx ordered. Current Visit: Yes Status: Acute Priority: High Code(s): J18.9 - PNEUMONIA, UNSPECIFIED ORGANISM SNOMED Code(s): 658270388
[2021-02-18] MEDS: LACTULOSE 20 GM/30 ML CUP PO SCH (11:47)
[2021-02-18] MEDS: HEPARIN SODIUM,PORCINE/PF 5,000 UNIT/0.5 ML SYRINGE SQ SCH ×3 (11:47→21:07)
[2021-02-18] MEDS: FOLIC ACID 1 MG TAB PO SCH (12:02)
[2021-02-18] MEDS: IOPAMIDOL CONTRAST (ORAL USE) VIAL PO PRN ×2 (12:07→12:48)
[2021-02-18] MEDS: traMADol 50 MG TAB PO PRN ×2 (12:49→21:03)
--- NOTE | 2021-02-18 13:54 | P.PAINCN ---
History of Present Illness - Reason for Consult Consult date: 02/18/21 - History of Present Illness This is 66 years old female with a history of pancreatic cancer and she was admitted to [facility] secondary to shortness of breath and possible pneumonia, and complaining of severe intractable abdominal pain secondary to pancreatic cancer, consultation for celiac plexus block was requested, she currently on pain medication and the IV 0.5 mg every 3 hours and also she is on Ultram 50 mg when necessary Q 6 hours, Neurontin 300 mg twice a day, patient reported that she had generalized abdominal pain and she reported that her pain improved since the admission, she reported that the current regimen helping her to control her pain Past Medical History Past Medical History: Cancer, GERD/Reflux, Hyperlipidemia, Hypertension, Musculoskeletal Disorder, Osteoarthritis (OA) Additional Past Medical History / Comment(s): Osteoporosis, Lower Back Pain, Sciatica. TOLD YEARS AGO SHE HAD HEART MURMUR- NO TX, HX ACUTE BRONCHITIS(SMOKER), August 2020 pancreatic cancer. Current head tremor. Feet, ankles and legs swollen. History of Any Multi-Drug Resistant Organisms: None Reported Past Surgical History: Orthopedic Surgery, Tubal Ligation Additional Past Surgical History / Comment(s): 2 pins in right hip-dislocated 1975. Past Anesthesia/Blood Transfusion Reactions: No Reported Reaction Past Psychological History: Anxiety, Depression Smoking Status: Current every day smoker Past Alcohol Use History: None Reported Additional Past Alcohol Use History / Comment(s): Started smoking at age 17(1971), now smokes <1 ppd. Quit drinking August 2020, had been drinking 3-4 beers daily. Past Drug Use History: None Reported Additional Drug Use History / Comment(s): Quit drinking 09/07/20 was drinking 3-4 beers a day - Past Family History Mother Family Medical History: Liver Disease Father Family Medical History: Cancer Additional Family Medical History / Comment(s): Lung or liver cancer. Medications and Allergies Home Medications Medication Instructions Recorded Confirmed Type Docusate [Colace] 200 mg PO DAILY #30 cap 01/06/21 02/16/21 Rx Gabapentin [Neurontin] 300 mg PO BID 02/08/21 02/16/21 History Potassium Chloride ER [K-Dur 10] 10 meq PO BID 02/08/21 02/16/21 History traMADol HCL 50 mg PO Q6H PRN 02/08/21 02/16/21 History Lactulose 20 gm PO DAILY 4 Days #120 ml 02/12/21 02/16/21 Rx Magnesium Oxide [Mag-Ox] 400 mg PO BID 30 Days #60 tab 02/12/21 02/16/21 Rx Pantoprazole Sodium [Protonix] 40 mg PO DAILY #30 tab 02/12/21 02/16/21 Rx amLODIPine BESYLATE/BENAZEPRIL 1 cap PO DAILY 02/16/21 02/16/21 History [Lotrel 10-40 MG] Allergies Allergy/AdvReac Type Severity Reaction Status Date / Time amylase [From Zenpep] AdvReac stomach Verified 02/16/21 14:40 pain erythromycin base AdvReac Nausea Verified 02/16/21 14:40 [Erythromycin Base] gabapentin AdvReac Hallucinati Verified 02/16/21 14:40 ons lipase [From Zenpep] AdvReac stomach Verified 02/16/21 14:40 pain protease [From Zenpep] AdvReac stomach Verified 02/16/21 14:40 pain Physical Exam Vitals: Vital Signs Temp Pulse Pulse Resp BP BP Pulse Ox 02/18/21 13:02 88 18 02/18/21 12:52 84 18 02/18/21 12:00 98.2 F 96 18 139/78 92 L 02/18/21 09:27 88 18 02/18/21 09:15 87 18 02/18/21 08:00 98.2 F 128 H 20 116/79 94 L 02/18/21 04:00 96.8 F L 80 20 129/85 100 02/18/21 00:00 96.8 F L 80 22 143/77 95 02/17/21 20:30 85 02/17/21 20:22 83 02/17/21 20:00 96.7 F L 18 150/81 98 02/17/21 17:54 98.0 F 71 16 126/74 95 02/17/21 15:40 80 02/17/21 15:37 97.4 F L 73 18 143/70 100 02/17/21 15:31 78 02/17/21 15:13 123/84 02/17/21 15:07 98.0 F 73 16 150/116 94 L 02/17/21 14:57 97.6 F 83 16 141/82 99 Intake and Output 02/17/21 02/18/21 02/18/21 22:59 06:59 14:59 Intake Total 596 960 240 Balance 596 960 240 Intake: Oral 320 960 240 Blood Product 276 Rc Pheresis 2 As3 Unit 276 [id number] Other: # Voids 2 Weight 54.8 kg - Constitutional General appearance: Present: cooperative, no acute distress, thin - EENT Eyes: Present: anicteric sclerae, EOMI ENT: Present: hearing grossly normal - Respiratory Respiratory: bilateral: diminished - Cardiovascular Heart sounds: normal: S1, S2 - Peripheral edema leg Peripheral Edema: bilateral: 1+, Pitting - Gastrointestinal General gastrointestinal: Present: normal bowel sounds, soft, tenderness (generalized, greatest LUQ) - Neurologic Neurologic: Present: CNII-XII intact - Musculoskeletal Musculoskeletal: Present: generalized weakness, strength equal bilaterally - Psychiatric Psychiatric: Present: A&O x's 3, appropriate affect, intact judgment & insight Results CBC & Chem 7: 02/17/21 22:39 02/18/21 08:20 Labs: Abnormal Lab Results - Last 24 Hours (Table) 02/17/21 02/17/21 02/17/21 Range/Units 06:00 10:33 22:39 WBC 11.8 H (3.8-10.6) k/uL RBC 2.64 L (3.80-5.40) m/uL Hgb 7.7 L (11.4-16.0) gm/dL Hct 22.9 L (34.0-46.0) % RDW 20.6 H (11.5-15.5) % Plt Count 137 L (150-450) k/uL Sodium (137-145) mmol/L Chloride (98-107) mmol/L Carbon Dioxide (22-30) mmol/L BUN (7-17) mg/dL Glucose (74-99) mg/dL Calcium (8.4-10.2) mg/dL Iron 38 L (50-170) ug/dL TIBC 91 L (228-460) ug/dL Transferrin 65.0 L (204.0-354.0) mg/dL Ferritin 882.0 H (10.0-291.0) ng/mL Vitamin B12 1656.0 H (200.0-944.0) pg/mL Folate 3.80 L (4.40-31.00) ng/mL Crossmatch See Detail 02/18/21 Range/Units 08:20 WBC (3.8-10.6) k/uL RBC (3.80-5.40) m/uL Hgb (11.4-16.0) gm/dL Hct (34.0-46.0) % RDW (11.5-15.5) % Plt Count (150-450) k/uL Sodium 133 L (137-145) mmol/L Chloride 111 H (98-107) mmol/L Carbon Dioxide 18 L (22-30) mmol/L BUN 4 L (7-17) mg/dL Glucose 134 H (74-99) mg/dL Calcium 7.1 L (8.4-10.2) mg/dL Iron (50-170) ug/dL TIBC (228-460) ug/dL Transferrin (204.0-354.0) mg/dL Ferritin (10.0-291.0) ng/mL Vitamin B12 (200.0-944.0) pg/mL Folate (4.40-31.00) ng/mL Crossmatch Microbiology - Last 24 Hours (Table) 02/16/21 11:56 Urine Culture - Final Urine,Clean Catch 02/16/21 18:47 Blood Culture - Preliminary Blood No Growth after 24 hours Assessment and Plan Plan: Assessment and Plan (1) Abdominal pain pancreatitis, adenocarcinoma. (2) Pancreatic cancer Discussed with the patient the option of doing celiac plexus Block today , explained to her that because she had food in the morning, the procedure can be done without sedation ,( she needs to be nothing by mouth to give sedation), ,and if she wanted sedation, it can be done on , ( day after tommorrow ), patient reported that her current medication helping her appropriately and her pain improved since the admission, and I offered the patient to do the procedure as an outpatient,once patient discharged, she can follow up in the pain clinic within 1-2 weeks after discharge. Time with Patient: Less than 30 PQRS Measure Charge Sheet PQRS Narrative: Smoking Status Current every day smoker Do You Want the Pneumonia No Vaccine AT THIS TIME? Blood Pressure [Right Arm] 139/78 Blood Pressure 126/74 Pain Intensity [None] 0 Pain Intensity 4 Pain Scale Used Numeric (1 - 10) Scale Used Numeric (1 - 10) Home Medications: Ambulatory Orders Docusate [Colace] 200 mg PO DAILY #30 cap 01/06/21 Gabapentin [Neurontin] 300 mg PO BID 02/08/21 Potassium Chloride ER [K-Dur 10] 10 meq PO BID 02/08/21 traMADol HCL 50 mg PO Q6H PRN 02/08/21 Lactulose 20 gm PO DAILY 4 Days #120 ml 02/12/21 Magnesium Oxide [Mag-Ox] 400 mg PO BID 30 Days #60 tab 02/12/21 Pantoprazole Sodium [Protonix] 40 mg PO DAILY #30 tab 02/12/21 amLODIPine BESYLATE/BENAZEPRIL [Lotrel 10-40 MG] 1 cap PO DAILY 02/16/21
--- NOTE | 2021-02-18 14:00 | P.PN ---
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 He is admitted to the hospital secondary to harman michele. Cardiology was consulted to evaluate the patient for abnormal troponins. The patient denies any chest pain or pressure. She denies shortness of breath. She continues to have lower extremity edema. She received a one-time dose of IV Lasix yesterday. Echocardiogram completed revealed ejection fraction 60-65%, mild mitral regurgitation, and large pleural effusion. PHYSICAL EXAM: VITAL SIGNS: Reviewed. GENERAL: Well-developed in no acute distress. NECK: Supple. No JVD or thyromegaly LUNGS: Respirations even and unlabored. Lungs diminished to auscultation bilate rally. HEART: Regular rate and rhythm. S1 and S2 heard. EXTREMITIES: Normal range of motion. No clubbing or cyanosis. Peripheral pulses intact. 2+ bilateral lower extremity edema ASSESSMENT: Pneumonia Pancreatic cancer Lower extremity edema Abnormal troponins, not suggestive of ACS Anemia, s/p RBC transfusion PLAN: Give additional 40mg IV lasix x 1 dose now Begin oral lasix 40mg daily starting tomorrow Accurate I&O Monitor kidney function Further recommendations pending patient course Nurse practitioner note has been reviewed by physician. Signing provider agrees with the documented findings, assessment, and plan of care. Objective - Vital Signs Vital signs: Vital Signs Temp 98.2 F 02/18/21 12:00 Pulse 88 02/18/21 13:02 Resp 18 02/18/21 13:02 BP 139/78 02/18/21 12:00 Pulse Ox 92 L 02/18/21 12:00 Intake & Output 02/17/21 02/18/21 02/18/21 18:59 06:59 18:59 Intake Total 0 1556 240 Balance 0 1556 240 Weight 40.37 kg 54.8 kg Intake: Oral 1280 240 Blood Product 0 276 Rc Pheresis 2 As3 Unit 0 276 [id number] Other: # Voids 2 - Labs CBC & Chem 7: 02/17/21 22:39 02/18/21 08:20 Labs: Abnormal Lab Results - Last 24 Hours (Table) 02/17/21 02/17/21 02/17/21 Range/Units 06:00 10:33 22:39 WBC 11.8 H (3.8-10.6) k/uL RBC 2.64 L (3.80-5.40) m/uL Hgb 7.7 L (11.4-16.0) gm/dL Hct 22.9 L (34.0-46.0) % RDW 20.6 H (11.5-15.5) % Plt Count 137 L (150-450) k/uL Sodium (137-145) mmol/L Chloride (98-107) mmol/L Carbon Dioxide (22-30) mmol/L BUN (7-17) mg/dL Glucose (74-99) mg/dL Calcium (8.4-10.2) mg/dL Iron 38 L (50-170) ug/dL TIBC 91 L (228-460) ug/dL Transferrin 65.0 L (204.0-354.0) mg/dL Ferritin 882.0 H (10.0-291.0) ng/mL Vitamin B12 1656.0 H (200.0-944.0) pg/mL Folate 3.80 L (4.40-31.00) ng/mL Crossmatch See Detail 02/18/21 Range/Units 08:20 WBC (3.8-10.6) k/uL RBC (3.80-5.40) m/uL Hgb (11.4-16.0) gm/dL Hct (34.0-46.0) % RDW (11.5-15.5) % Plt Count (150-450) k/uL Sodium 133 L (137-145) mmol/L Chloride 111 H (98-107) mmol/L Carbon Dioxide 18 L (22-30) mmol/L BUN 4 L (7-17) mg/dL Glucose 134 H (74-99) mg/dL Calcium 7.1 L (8.4-10.2) mg/dL Iron (50-170) ug/dL TIBC (228-460) ug/dL Transferrin (204.0-354.0) mg/dL Ferritin (10.0-291.0) ng/mL Vitamin B12 (200.0-944.0) pg/mL Folate (4.40-31.00) ng/mL Crossmatch Microbiology - Last 24 Hours (Table) 02/16/21 11:56 Urine Culture - Final Urine,Clean Catch 02/16/21 18:47 Blood Culture - Preliminary Blood No Growth after 24 hours
--- NOTE | 2021-02-18 14:28 | CT ---
EXAMINATION TYPE: CT abdomen pelvis w con DATE OF EXAM: 02/18/2021 HISTORY: Generalized pain with history of pancreatic adenocarcinoma. CT DLP: 704.8mGycm Automated Exposure Control for Dose Reduction was Utilized. CONTRAST: CT scan of the abdomen and pelvis is performed with oral and with IV Contrast, patient injected with 100 mL of Isovue 300. COMPARISON: CT November 27, 2020 and older studies FINDINGS: LUNG BASES: Small left greater than right pleural effusions with associated compressive atelectasis. Coronary artery calcification and/or stent in the RCA distribution redemonstrated LIVER/GB: There is persistent stent running from the duodenum into the common bile duct. There is mor e loss of intraluminal air on current study but persistent visualization of pneumobilia suggesting pa tency and no worsening biliary dilatation. There are however no foci of thin-walled fluid collections in the right hepatic lobe with air-fluid levels axial image 53 for reference measuring near and just over 1.0 cm. Gallbladder redemonstrated dilated with distended margins. Air-fluid level in the dilat ed common bile duct redemonstrated. PANCREAS: Multiple pancreatic calcifications with dilated pancreatic duct redemonstrated. Dilated angelina or and minor ducts now seen. Degree of dilatation not significantly worsened in the main duct versus prior. SPLEEN: No significant abnormality is seen. ADRENALS: No significant abnormality is seen. KIDNEYS: No significant abnormality is seen. BOWEL: No significant abnormality is seen. UTERUS/ADNEXA: Slightly retroflexed uterus. Prominent patent draining left ovarian vein redemonstrate d. Less dense right ovarian vein possible thrombosed redemonstrated. More prominent moderate to large amount of free fluid in the pelvic cul-de-sac axial image 120. LYMPH NODES: Difficult to accurately assess as patient has little intra-abdominal fat and there is ex tensive edema blurring fat planes. No new greater than 1cm abdominal or pelvic lymph nodes are clearl y appreciated. OSSEOUS STRUCTURES: Surgical change right proximal femur partially imaged. [id number] disc sp kevin narrowing lumbosacral junction with sclerosis and vacuum disc phenomenon redemonstrated. OTHER: Moderate mixed plaque of the aorta extends into branch vessels. Marked soft tissue swelling an d subcutaneous edema on current study. Involvement in the peritoneal space and retroperitoneum also n ow identified. Small amount of intra-abdominal ascites now seen. IMPRESSION: Severe diffuse soft tissue swelling and subcutaneous edema. Mild intra-abdominal and more moderate pelvic ascites. Small left greater than right pleural effusions. Findings consistent with f luid overload state. Patent metallic CBD stent into duodenum redemonstrated. There are 3 new thin-wal led fluid collections in the posterior right hepatic lobe or dependent portion of liver with air-flui d levels, cannot exclude developing infectious process or abscesses but are overall nonspecific.
[2021-02-18] MEDS: LEVOFLOXACIN 750MG-D5W PMX 750 MG in DEXTROSE/WATER 1 150ML.BAG IVPB SCH (19:12)
[2021-02-18] MEDS: metroNIDAZOLE 500 MG TAB PO SCH (21:52)
--- NOTE | 2021-02-18 23:07 | PN ---
PROGRESS NOTE DATE OF SERVICE: 02/18/2021 REASON FOR FOLLOW UP: With question of pneumonia and abnormal CT question abdominal abscess. INTERVAL HISTORY: Patient is afebrile. The patient has been breathing slightly comfortably. Still complaining of abdominal pain. No worsening though. No chest pain, shortness of breath or cough. PHYSICAL EXAMINATION: Blood 124/86, pulse of 83, temperature 97.6. She is 95% on 4 L nasal cannula. General description is an elderly female lying in bed in no distress. Respiratory system: Unlabored breathing, decreased breath sounds. No wheeze. Heart S1, S2. Regular. Abdomen: Soft, mildly tender no rigidity. LABS: Hemoglobin is 7.7, white count 11.8, creatinine 0.53. DIAGNOSTIC IMPRESSION AND PLAN: Patient with admission to hospital with shortness with weakness, abdominal pain in this patient who did have CT of abdomen and pelvis, question of some thin walled fluid collection, possible abscess. The patient antibiotic will be broadened to cover for abdominal pathogen with cefepime and Flagyl. Discontinue vancomycin, Levaquin however, overall prognosis remains to be guarded. Continue supportive care. MMODL / IJN: [id number] /
[2021-02-19] MEDS: CEFEPIME 2 GM in SODIUM CHLORIDE 0.9% 100 ML IVPB SCH ×4 (00:21→23:32)
[2021-02-19] MEDS: traMADol 50 MG TAB PO PRN (08:43)
[2021-02-19] MEDS: FOLIC ACID 1 MG TAB PO SCH (08:44)
[2021-02-19] MEDS: DOCUSATE 100 MG CAP PO SCH (08:44)
[2021-02-19] MEDS: POTASSIUM CHLORIDE ER 10 MEQ TAB.ER.PRT PO SCH ×2 (08:44→20:38)
[2021-02-19] MEDS: lisinopriL 20 MG TAB PO SCH (08:44)
[2021-02-19] MEDS: MAGNESIUM OXIDE 400 MG TAB PO SCH ×2 (08:44→20:38)
[2021-02-19] MEDS: metroNIDAZOLE 500 MG TAB PO SCH ×3 (08:44→20:38)
[2021-02-19] MEDS: GABAPENTIN 300 MG CAP PO SCH ×2 (08:44→20:39)
[2021-02-19] MEDS: PANTOPRAZOLE 40 MG TABLET PO SCH (08:44)
[2021-02-19] MEDS: HEPARIN SODIUM,PORCINE/PF 5,000 UNIT/0.5 ML SYRINGE SQ SCH ×2 (08:45→20:39)
[2021-02-19] MEDS: LACTULOSE 20 GM/30 ML CUP PO SCH (08:45)
[2021-02-19] MEDS ORDERED: FUROSEMIDE 40 MG TAB PO SCH (09:00)
[2021-02-19] MEDS ORDERED: amLODIPine 5 MG TAB PO SCH (09:00)
[2021-02-19] MEDS: IPRATROPIUM-ALBUTEROL 3 ML NEB INHALATION SCH ×4 (09:30→20:15)
[2021-02-19] MEDS ORDERED: VANCOMYCIN TROUGH DUE 1 EACH MISC MISCELLANE ONE (12:00)
--- NOTE | 2021-02-19 12:08 | P.PN ---
Subjective Progress Note Date: 02/19/21 Principal diagnosis: Pancreatic Cancer She is feeling better today, attempted to connect with Pain service today to try to see if able to undergo plexus block prior to discharge given the multiple re- hospitalizations for pain management. She has a difficult time with adherence at outpatient. Objective - Vital Signs Vital signs: Vital Signs Temp 98.4 F 02/19/21 08:00 Pulse 108 H 02/19/21 09:45 Resp 18 02/19/21 08:00 BP 122/70 02/19/21 08:00 Pulse Ox 94 L 02/19/21 08:00 Intake & Output 02/18/21 02/19/21 02/19/21 18:59 06:59 18:59 Intake Total 720 120 240 Balance 720 120 240 Weight 55.6 kg Intake: Oral 720 120 240 Other: Voiding Method Toilet # Voids 1 - Exam Frail Alert NAD Lungs: CTA Abdomen: Distended tender Ext: BLE 2+ edema Calm today - Labs CBC & Chem 7: 02/17/21 22:39 02/18/21 08:20 Labs: Abnormal Lab Results - Last 24 Hours (Table) 02/17/21 Range/Units 10:33 Crossmatch See Detail Microbiology - Last 24 Hours (Table) 02/16/21 09:29 Gram Stain - Preliminary Sputum Sputum Culture - Preliminary 02/16/21 18:47 Blood Culture - Preliminary Blood No Growth after 48 hours 02/16/21 11:56 Urine Culture - Final Urine,Clean Catch Assessment and Plan (1) Abdominal pain Current Visit: Yes Status: Acute Priority: High Code(s): R10.9 - UNSPECIFIED ABDOMINAL PAIN SNOMED Code(s): 25131781 (2) Pancreatic cancer Current Visit: Yes Status: Acute Priority: High Code(s): C25.9 - MALIGNANT NEOPLASM OF PANCREAS, UNSPECIFIED SNOMED Code(s): 648031216 Plan: With her recurrent admissions and difficult adherence and thriving as outpatient we will ask for plexus block while inpatient and prior to discharge Will also start MSER - Discussed with patient and she is agreeable. Will add bowel regimen for risk of narcotic induced constipation.
--- NOTE | 2021-02-19 12:53 | P.PN ---
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 He is admitted to the hospital secondary to harman michele. Cardiology was consulted to evaluate the patient for abnormal troponins. The patient denies any chest pain or pressure. She denies shortness of breath. She continues to have lower extremity edema. She received a one-time dose of IV Lasix yesterday. Echocardiogram completed revealed ejection fraction 60-65%, mild mitral regurgitation, and large pleural effusion. 02/19/2021 Patient examined this morning at the bedside. Patient denies chest pain or pressure. She denies shortness of breath. She continues to have lower extremity edema. She received a one-time dose of IV Lasix yesterday and was started on oral Lasix today. PHYSICAL EXAM: VITAL SIGNS: Reviewed. GENERAL: Well-developed in no acute distress. NECK: Supple. No JVD or thyromegaly LUNGS: Respirations even and unlabored. Lungs diminished to auscultation bilaterally. HEART: Regular rate and rhythm. S1 and S2 heard. EXTREMITIES: Normal range of motion. No clubbing or cyanosis. Peripheral pul ses intact. 2+ bilateral lower extremity edema ASSESSMENT: Pneumonia Pancreatic cancer Lower extremity edema Abnormal troponins, not suggestive of ACS Anemia, s/p RBC transfusion PLAN: Discontinue Norvasc as this may be contributing to her lower extremity edema Begin IV Lasix 40 mg every 12 hours Accurate I&O Monitor kidney function Further recommendations pending patient course Nurse practitioner note has been reviewed by physician. Signing provider agrees with the documented findings, assessment, and plan of care. Objective - Vital Signs Vital signs: Vital Signs Temp 98.4 F 02/19/21 08:00 Pulse 108 H 02/19/21 09:45 Resp 18 02/19/21 08:00 BP 122/70 02/19/21 08:00 Pulse Ox 94 L 02/19/21 08:00 Intake & Output 02/18/21 02/19/21 02/19/21 18:59 06:59 18:59 Intake Total 720 120 240 Balance 720 120 240 Weight 55.6 kg Intake: Oral 720 120 240 Other: Voiding Method Toilet # Voids 1 - Labs CBC & Chem 7: 02/17/21 22:39 02/18/21 08:20 Labs: Abnormal Lab Results - Last 24 Hours (Table) 02/17/21 Range/Units 10:33 Crossmatch See Detail Microbiology - Last 24 Hours (Table) 02/16/21 09:29 Gram Stain - Preliminary Sputum Sputum Culture - Preliminary 02/16/21 18:47 Blood Culture - Preliminary Blood No Growth after 48 hours 02/16/21 11:56 Urine Culture - Final Urine,Clean Catch
[2021-02-19] MEDS: HYDROmorphone 0.5 MG/0.5 ML SYRINGE IVP PRN ×2 (14:27→23:39)
--- NOTE | 2021-02-19 16:39 | PN ---
PROGRESS NOTE DATE OF SERVICE: 02/19/2021 REASON FOR FOLLOWUP: Possible abdominal sepsis. INTERVAL HISTORY: Patient is afebrile. The patient is breathing comfortably. Has been complaining of some abdominal discomfort and nausea but no vomiting. No chest pain, shortness of breath. Occasional cough. No diarrhea. PHYSICAL EXAMINATION: Blood pressure 102/70 with a pulse of , temperature 98.4. She is 94% on 4 L nasal cannula. General description is an elderly female lying in bed in no distress. Respiratory system: Unlabored breathing, decreased intensity of breath sounds. No wheeze. Heart S1, S2. Regular rate and rhythm. Abdomen soft, mildly distended. No guarding. No rigidity. LABORATORY DATA: Reviewed. DIAGNOSTIC IMPRESSION AND PLAN: Patient admitted to the hospital with abdominal pain and some shortness of breath in this patient who did have a history of pancreatic adenocarcinoma, now with CT showing possible fluid collection, questionable abscess. The patient is covered with cefepime and Flagyl to continue. Prognosis remains to be guarded. Continue supportive care. MMODL / IJN: [id number] /
[2021-02-19] MEDS: NICOTINE 14MG/24HR PATCH TRANSDERM SCH (16:54)
[2021-02-19] MEDS: SODIUM CHLORIDE 0.9% 1,000 ML IV SCH (16:55)
--- NOTE | 2021-02-19 16:58 | P.PN ---
Progress Note - Text Progress Note Date: 02/19/21 This is 66 years old female, with abdominal pain secondary to pancreatic cancer, patient continued to have severe abdominal pain, discussed with the patient today the option of doing celiac plexus block to help to control her pain, risks and benefits of the procedure discussed with the patient she agreed with the preceding, the patient will be nothing by mouth after midnight, we will proceed with a celiac plexus block tomorrow morning 02/20/2021
[2021-02-19] MEDS: SENNOSIDES-DOCUSATE SODIUM 1 EACH TAB PO SCH (20:38)
[2021-02-19] MEDS: MORPHINE SULFATE ER 15 MG TABLET PO SCH (20:39)
[2021-02-19] MEDS: FUROSEMIDE 10 MG/ML 4 ML VIAL IV SCH (20:39)
--- NOTE | 2021-02-19 23:13 | P.PN ---
Subjective Progress Note Date: 02/18/21 Principal diagnosis: pneumonia Fluid load Pancreatic Cancer This is a pleasant 65 years old -[place] female with past medical history of pancreatic cancer, abdominal pain, diabetes mellitus, hypertension, hyperlipidemia, osteoarthritis, chronic back pain with sciatica. Recurrent admissions for abdominal pain. Presents with dyspnea for 1 week duration associated with coughing and little yellow phlegm and but no chest pain. No urinary symptoms, she has chronic abdominal pain. Also she is usually constipated but over the last few days if she is having loose bowel movement about twice per day but no vomiting. She smokes about half pack per day, she wants to quit. No alcohol or illicit drugs She looks weak and cachectic Patient was in the hospital about 1 week ago, patient has multiple hospitalization over the last 3 months She is mildly tachycardic and hypoxic at 85% on room air. She is saturating 94% on 5 L oxygen via nasal cannula Labs showing WBC 12.8 and 9.4 while hemoglobin 7.6 and 6.9, platelets 133 and 149. Sodium 133, rest of the BMP is unremarkable. Liver enzymes not elevated. Troponin elevated at 0.2 and 0.3 Urine analysis is suspicious for infection Coronavirus not detected. chest x-ray showing bilateral basilar infiltrates CTA of the chest: No PE. Basilar mild pulmonary infiltrates In the emergency room patient was started on Levaquin and IV vancomycin, one- time dose of Lasix and normal saline at 60 mL per hour 02/18/2021 Patient is currently resting in the bed. Awake alert oriented x3. Breathing status is better patient is still requiring oxygen via nasal cannula. Patient was seen by cardiology due to elevated troponin level which is not suggestive of ACS. Otherwise patient denied any complaints of chest pain or shortness breath. Patient is still having bilateral lower extremity edema and was started on IV Lasix. 2D echocardiogram showed ejection fraction 60 to 65% and mild MR and large pleural effusion. CT abdomen pelvis was ordered today which showed severe diffuse soft tissue swelling and subcutaneous edema. Small left greater than right pleural effusions. Findings consistent with fluid overload state. Metabolic CBD stent into duodenum redemonstrated. Patient is being continued antibiotics above vancomycin and cefepime. Cultures have been negative so far. Current medications reviewed. Objective - Vital Signs Vital signs: Vital Signs Temp 98.2 F 02/18/21 12:00 Pulse 88 02/18/21 13:02 Resp 18 02/18/21 13:02 BP 139/78 02/18/21 12:00 Pulse Ox 92 L 02/18/21 12:00 Intake & Output 02/17/21 02/18/21 02/18/21 18:59 06:59 18:59 Intake Total 0 1556 720 Balance 0 1556 720 Weight 40.37 kg 54.8 kg Intake: Oral 1280 720 Blood Product 0 276 Rc Pheresis 2 As3 Unit 0 276 [id number] Other: # Voids 2 - Exam - Exam -GENERAL: The patient is alert and oriented x3, not in any acute distress. Cachectic and thin built HEENT: Pupils are round and equally reacting to light. EOMI. No scleral icterus. No conjunctival pallor. Normocephalic, atraumatic. No pharyngeal erythema. No thyromegaly. CARDIOVASCULAR: S1 and S2 present. No murmurs, rubs, or gallops. PULMONARY: Chest is clear to auscultation, no wheezing or crackles. Bilateral crepitation A-BDOMEN: Soft, chronic epigastric tenderness, nondistended, normoactive bowel sounds. No palpable organomegaly. MUSCULOSKELETAL: No joint swelling or deformity. EXTREMITIES: No cyanosis, clubbing, or pedal edema. NEUROLOGICAL: Gross neurological examination did not reveal any focal deficits. SKIN: No rashes. No petechiae - Labs CBC & Chem 7: 02/17/21 22:39 02/18/21 08:20 Labs: Abnormal Lab Results - Last 24 Hours (Table) 02/17/21 02/17/21 02/18/21 Range/Units 10:33 22:39 08:20 WBC 11.8 H (3.8-10.6) k/uL RBC 2.64 L (3.80-5.40) m/uL Hgb 7.7 L (11.4-16.0) gm/dL Hct 22.9 L (34.0-46.0) % RDW 20.6 H (11.5-15.5) % Plt Count 137 L (150-450) k/uL Sodium 133 L (137-145) mmol/L Chloride 111 H (98-107) mmol/L Carbon Dioxide 18 L (22-30) mmol/L BUN 4 L (7-17) mg/dL Glucose 134 H (74-99) mg/dL Calcium 7.1 L (8.4-10.2) mg/dL Crossmatch See Detail Microbiology - Last 24 Hours (Table) 02/16/21 09:29 Sputum Culture - Preliminary Sputum 02/16/21 11:56 Urine Culture - Final Urine,Clean Catch 02/16/21 18:47 Blood Culture - Preliminary Blood No Growth after 24 hours Assessment and Plan Assessment: Acute hospital-acquired Bilateral pneumonia Acute hypoxic respiratory failure secondary to above Elevated troponin, could be due to demand/supply mismatch area to rule out cardiac causes Abnormal UA suspicious for urinary tract infection Chronic Anemia with recent mild worsening Pancreatic cancer Chronic pancreatitis with ongoing chronic abdominal pain Chronic leukocytosis Chronic hyponatremia Mild calories protein malnutrition Hypertension Hyperlipidemia Diabetes mellitus Osteoarthritis Chronic back pain with sciatic Plan: This is a pleasant 66 years old female who presents with multiple problems including pneumonia, hypoxia, elevated troponin and drop in hemoglobin Continue with antibiotics and follow-up culture. currently on IV vancomycin and Levaquin. . Infectious disease consult. Continue with gentle hydration No aspirin for severe low hemoglobin. Follow-up with cardiology team recommendation for consulted. TTE showed Normal EF. anemia workup. 1 unit of blood is ordered , hematology/oncology team consult will follow the recommendation Labs and medication were reviewed. Monitor lytes and vitals. DVT and GI prophylaxis. DVT prophylaxis:no Subcutaneous heparin review of her severe anemia GI Prophylaxis: Ppi Prognosis is guarded Time with Patient: Greater than 30
--- NOTE | 2021-02-19 23:17 | P.PN ---
Subjective Progress Note Date: 02/19/21 Principal diagnosis: pneumonia Fluid load Pancreatic Cancer This is a pleasant 65 years old -British female with past medical history of pancreatic cancer, abdominal pain, diabetes mellitus, hypertension, hyperlipidemia, osteoarthritis, chronic back pain with sciatica. Recurrent admissions for abdominal pain. Presents with dyspnea for 1 week duration associated with coughing and little yellow phlegm and but no chest pain. No urinary symptoms, she has chronic abdominal pain. Also she is usually constipated but over the last few days if she is having loose bowel movement about twice per day but no vomiting. She smokes about half pack per day, she wants to quit. No alcohol or illicit drugs She looks weak and cachectic Patient was in the hospital about 1 week ago, patient has multiple hospitalization over the last 3 months She is mildly tachycardic and hypoxic at 85% on room air. She is saturating 94% on 5 L oxygen via nasal cannula Labs showing WBC 12.8 and 9.4 while hemoglobin 7.6 and 6.9, platelets 133 and 149. Sodium 133, rest of the BMP is unremarkable. Liver enzymes not elevated. Troponin elevated at 0.2 and 0.3 Urine analysis is suspicious for infection Coronavirus not detected. chest x-ray showing bilateral basilar infiltrates CTA of the chest: No PE. Basilar mild pulmonary infiltrates In the emergency room patient was started on Levaquin and IV vancomycin, one- time dose of Lasix and normal saline at 60 mL per hour 02/18/2021 Patient is currently resting in the bed. Awake alert oriented x3. Breathing status is better patient is still requiring oxygen via nasal cannula. Patient was seen by cardiology due to elevated troponin level which is not suggestive of ACS. Otherwise patient denied any complaints of chest pain or shortness breath. Patient is still having bilateral lower extremity edema and was started on IV Lasix. 2D echocardiogram showed ejection fraction 60 to 65% and mild MR and large pleural effusion. CT abdomen pelvis was ordered today which showed severe diffuse soft tissue swelling and subcutaneous edema. Small left greater than right pleural effusions. Findings consistent with fluid overload state. Metabolic CBD stent into duodenum redemonstrated. Patient is being continued antibiotics above vancomycin and cefepime. Cultures have been negative so far. 02/19/2021 Patient is currently resting in bed. Awake alert and oriented x3. Still having bilateral lower extremity edema and was started on IV Lasix twice daily. 40 mg. Pain management to service was consulted due to chronic pain and pancreatic cancer. Cardiology and oncology on board. Laboratory showed CRP 3.3 and vancomycin 9.99 other laboratory data reviewed. Discussed with the patient and her daughter at bedside in detail. Current medications reviewed. Objective - Vital Signs Vital signs: Vital Signs Temp 97.9 F 02/19/21 16:00 Pulse 115 H 02/19/21 16:00 Resp 18 02/19/21 16:00 BP 119/76 02/19/21 16:00 Pulse Ox 95 02/19/21 16:00 Intake & Output 02/19/21 02/19/21 02/20/21 06:59 18:59 06:59 Intake Total 120 1180 Balance 120 1180 Weight 55.6 kg Intake: Intake, IV Titration 100 Amount Cefepime 2 gm In Sodium 100 Chloride 0.9% 100 ml @ 25 mls/hr IVPB Q8HR [facility] Rx# :[id number] Oral 120 1080 Other: Voiding Method Toilet Toilet # Voids 1 - Exam - Exam -GENERAL: The patient is alert and oriented x3, not in any acute distress. Cachectic and thin built HEENT: Pupils are round and equally reacting to light. EOMI. No scleral icterus. No conjunctival pallor. Normocephalic, atraumatic. No pharyngeal erythema. No thyromegaly. CARDIOVASCULAR: S1 and S2 present. No murmurs, rubs, or gallops. Bilateral lower extremity swelling and generalized swelling. PULMONARY: Chest is clear to auscultation, no wheezing or crackles. Bilateral crepitation A-BDOMEN: Soft, chronic epigastric tenderness, nondistended, normoactive bowel sounds. No palpable organomegaly. MUSCULOSKELETAL: No joint swelling or deformity. EXTREMITIES: No cyanosis, clubbing, or pedal edema. NEUROLOGICAL: Gross neurological examination did not reveal any focal deficits. SKIN: No rashes. No petechiae - Labs CBC & Chem 7: 02/17/21 22:39 02/18/21 08:20 Labs: Abnormal Lab Results - Last 24 Hours (Table) 02/17/21 02/19/21 Range/Units 10:33 14:40 C-Reactive Protein 3.3 H (<1.0) mg/dL Crossmatch See Detail Microbiology - Last 24 Hours (Table) 02/16/21 18:47 Blood Culture - Preliminary Blood No Growth after 72 hours 02/16/21 09:29 Gram Stain - Preliminary Sputum Sputum Culture - Preliminary Assessment and Plan Assessment: Acute hospital-acquired Bilateral pneumonia Acute hypoxic respiratory failure secondary to above Elevated troponin, could be due to demand/supply mismatch area to rule out cardiac causes Abnormal UA suspicious for urinary tract infection Chronic Anemia with recent mild worsening Pancreatic cancer Chronic pancreatitis with ongoing chronic abdominal pain Chronic leukocytosis Chronic hyponatremia Mild calories protein malnutrition Hypertension Hyperlipidemia Diabetes mellitus Osteoarthritis Chronic back pain with sciatic Plan: This is a pleasant 66 years old female who presents with multiple problems including pneumonia, hypoxia, elevated troponin and drop in hemoglobin Continue with antibiotics and follow-up culture. currently on IV vancomycin and cefepime. . Infectious disease consult. No aspirin for severe low hemoglobin. cardiology team is folloing. TTE showed Normal EF. anemia workup. 1 unit of blood is ordered , hematology/oncology team consult will follow the recommendation c/w IV lasix Labs and medication were reviewed. Monitor lytes and vitals. DVT and GI prop hylaxis. DVT prophylaxis:no Subcutaneous heparin review of her severe anemia GI Prophylaxis: Ppi Prognosis is guarded Time with Patient: Greater than 30
[2021-02-20] MEDS: IPRATROPIUM-ALBUTEROL 3 ML NEB INHALATION SCH ×4 (08:13→21:21)
[2021-02-20] MEDS ORDERED: IV FLUID CONTINUATION 300 ML IV ONE (08:59)
[2021-02-20] MEDS ORDERED: MIDAZOLAM 2 MG/2 ML VIAL ONE (09:14)
[2021-02-20] MEDS ORDERED: SODIUM CHLORIDE 0.9% (PF) 10 ML VIAL ONE (09:14)
[2021-02-20] MEDS ORDERED: methylPREDNISolone ACETATE 40 MG/ML 1 ML VIAL ONE (09:14)
[2021-02-20] MEDS ORDERED: IOPAMIDOL M200 10 ML VIAL ONE (09:14)
[2021-02-20] MEDS ORDERED: ROPIVACAINE 5MG/ML 20ML VIAL ONE (09:14)
[2021-02-20] MEDS ORDERED: .fentaNYL (PF) 50 MCG/ML AMP ONE (09:14)
--- NOTE | 2021-02-20 10:02 | P.PCN ---
Date of Procedure: 02/20/21 Description of Procedure: PROCEDURE: Celiac plexus block. PREOPERATIVE DIAGNOSIS: Abdominal pain secondary to pancreatic cancer. POSTOPERATIVE DIAGNOSIS: Abdominal pain secondary to pancreatic cancer ANESTHESIA: Local with 1% lidocaine; IV sedation with Versed , and Fentanyl . Surgeon: Andreina Giraldo EBL: none Specimen removed: None Fluoroscopic image: Saved to electronic medical records PROCEDURE INDICATION: The patient with abdominal pain secondary to pancreatic cancer. Failed with conservative therapy. Scheduled for diagnostic celiac plexus block. PROCEDURE DESCRIPTION: The patient was seen and identified in the preoperative area. After discussing the risks, benefits, possible complications, and alternatives with the patient, the patient signed informed consent. Peripheral IV line was placed. Vital sings were taken and stable throughout the procedure. The patient was placed in prone position on the procedure table. Critical pause was taken. The thoraco-lumbar area was prepped with Chloraprep x2 and draped in the usual sterile fashion. Using anterior-posterior fluoroscopy the L1 vertebra was identified. The camera angle was moved to the right oblique position so that the transverse process of right side L1 lined up and aligned with the lateral border of the vertebral body. Skin and deeper tissues corresponding to the site was anesthetized using approximately 3 mL of 1% lidocaine. Then, using fluoroscopy a 5 -inch 22-gauge needle was guided to the lateral border of the L1 vertebral body below the level of the L1 transverse process. After the needle contacted the periosteum of the lateral aspect of L1 vertibral body the fluoroscopy camera was placed in the lateral position. As we advanced just anterior to the frontal border of the vertibral body. After negative aspiration for CSF, blood, air, and other bodily contents and with no paresthesias, approximately 2 mL of Isovue-M 200 was injected which spread along the anterior border of the vertebral, no intravascular spread. Then, again after negative aspiration for CSF, blood, air, and other bodily contents and with no paresthesias, 8 mL-0.5% preservative-free ropivacaine, 7 mL of preservative free normal saline mixed with 20 mg of Depo- Medrol was injected in small increments. Washout of the dye was seen. The entire procedure was repeated on the left side of the L1 vertebra, but needle advanced lateral border of the L1 vertebral body about the level of L1 transverse process. After negative aspiration for blood, body fluid, air to mL of Isovue 200 injected. Then after negative aspiration with a small increments 15 mL of a block solution injected which contain 8 mL of 0.5% preservative-free ropivacaine, 7 mL of preservative-free normal saline mixed with 20 MG of Depo- Medrol. All injections, except for local skin anesthetic, were performed using extension tubing. The needle was removed. Band-Aid was applied. The patient tolerated the procedure well. COMPLICATIONS: None. DISPOSITION / PLANS: The patient was placed in a supine position and transferred to the recovery area in a stable condition for observation and was discharged from the recovery room after meeting discharge criteria. Home discharge instructions given to the patient by the staff. The patient was reexamined prior to discharge. The patient will schedule to follow up with the pain clinic in 1-2 weeks.
--- NOTE | 2021-02-20 10:07 | FL ---
EXAMINATION TYPE: FL guided pain mgmt statistic DATE OF EXAM: 02/20/2021 HISTORY: Fluoroscopy time 40 seconds of fluoroscopy provided. IMPRESSION: 1. Fluoroscopy time.
[2021-02-20] MEDS: CEFEPIME 2 GM in SODIUM CHLORIDE 0.9% 100 ML IVPB SCH ×3 (10:51→23:29)
[2021-02-20] MEDS: HEPARIN SODIUM,PORCINE/PF 5,000 UNIT/0.5 ML SYRINGE SQ SCH ×3 (10:51→20:45)
[2021-02-20] MEDS: NICOTINE 14MG/24HR PATCH TRANSDERM SCH (10:51)
[2021-02-20] MEDS: LACTULOSE 20 GM/30 ML CUP PO SCH (10:51)
[2021-02-20] MEDS: DOCUSATE 100 MG CAP PO SCH (10:52)
[2021-02-20] MEDS: MAGNESIUM OXIDE 400 MG TAB PO SCH ×2 (10:52→20:43)
[2021-02-20] MEDS: FUROSEMIDE 10 MG/ML 4 ML VIAL IV SCH ×4 (10:52→23:28)
[2021-02-20] MEDS: POTASSIUM CHLORIDE ER 10 MEQ TAB.ER.PRT PO SCH ×2 (10:53→20:44)
[2021-02-20] MEDS: PANTOPRAZOLE 40 MG TABLET PO SCH (10:53)
[2021-02-20] MEDS: FOLIC ACID 1 MG TAB PO SCH (10:53)
[2021-02-20] MEDS: metroNIDAZOLE 500 MG TAB PO SCH ×3 (10:53→20:44)
[2021-02-20] MEDS: lisinopriL 20 MG TAB PO SCH (10:53)
[2021-02-20] MEDS: SENNOSIDES-DOCUSATE SODIUM 1 EACH TAB PO SCH ×2 (10:53→20:44)
[2021-02-20] MEDS: MORPHINE SULFATE ER 15 MG TABLET PO SCH ×2 (10:54→20:44)
[2021-02-20] MEDS: GABAPENTIN 300 MG CAP PO SCH ×2 (10:54→20:43)
--- NOTE | 2021-02-20 12:27 | XR ---
EXAMINATION TYPE: XR chest 1V portable DATE OF EXAM: 02/20/2021 COMPARISON: 02/17/2021 HISTORY: Cough TECHNIQUE: Single frontal view of the chest is obtained. FINDINGS: Mediport catheter seen with tip overlying SVC. There is bibasilar subsegmental consolidati on and small left pleural effusion. Heart size normal. Biliary stent is noted in the upper abdomen. N o pneumothorax. Arthropathy of the right shoulder. Retained contrast in the colon. IMPRESSION: 1. Bilateral lower lobe infiltrate and small left pleural effusion similar to prior exam.
[2021-02-20 13:07] VITALS: BMI 19.2
--- NOTE | 2021-02-20 13:49 | P.PN ---
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 He is admitted to the hospital secondary to harman michele. Cardiology was consulted to evaluate the patient for abnormal troponins. The patient denies any chest pain or pressure. She denies shortness of breath. She continues to have lower extremity edema. She received a one-time dose of IV Lasix yesterday. Echocardiogram completed revealed ejection fraction 60-65%, mild mitral regurgitation, and large pleural effusion. 02/19/2021 Patient examined this morning at the bedside. Patient denies chest pain or pressure. She denies shortness of breath. She continues to have lower extremity edema. She received a one-time dose of IV Lasix yesterday and was started on oral Lasix today. 02/20/2021 Patient examined this morning at the bedside. Patient is scheduled to undergo a diagnostic celiac plexus block today with Michaela. Patient denies chest pain or pressure. She denies shortness of breath. Patient continues to have lower extremity edema despite being on Lasix every 12 hours. PHYSICAL EXAM: VITAL SIGNS: Reviewed. GENERAL: Well-developed in no acute distress. NECK: Supple. No JVD or thyromegaly LUNGS: Respirations even and unlabored. Lungs diminished to auscultation bilaterally. HEART: Regular rate and rhythm. S1 and S2 heard. EXTREMITIES: Normal range of motion. No clubbing or cyanosis. Peripheral pu lses intact. 2+ bilateral lower extremity edema ASSESSMENT: Pneumonia Pancreatic cancer Lower extremity edema Abnormal troponins, not suggestive of ACS Anemia, s/p RBC transfusion PLAN: Norvasc discontinued secondary to lower extremity edema Increase Lasix to every 8 hours Accurate I&O Monitor kidney function Further recommendations pending patient course Nurse practitioner note has been reviewed by physician. Signing provider agrees with the documented findings, assessment, and plan of care. Objective - Vital Signs Vital signs: Vital Signs Temp 98.2 F 02/20/21 09:00 Pulse 120 H 02/20/21 11:56 Resp 16 02/20/21 12:00 BP 88/49 02/20/21 12:00 Pulse Ox 90 L 02/20/21 12:00 Intake & Output 02/19/21 02/20/21 02/20/21 18:59 06:59 18:59 Intake Total 1180 100 340 Output Total 250 Balance 1180 -150 340 Weight 55.6 kg Intake: IV 100 Intake, IV Titration 100 Amount Cefepime 2 gm In Sodium 100 Chloride 0.9% 100 ml @ 25 mls/hr IVPB Q8HR [facility] Rx# :[id number] Oral 1080 100 240 Output: Urine 250 Other: Voiding Method Toilet Toilet # Voids 1 # Bowel Movements 1 - Labs CBC & Chem 7: 02/17/21 22:39 02/18/21 08:20 Labs: Abnormal Lab Results - Last 24 Hours (Table) 02/19/21 02/19/21 Range/Units 14:40 14:40 C-Reactive Protein 3.3 H (<1.0) mg/dL Procalcitonin 0.28 H (0.02-0.09) ng/mL Microbiology - Last 24 Hours (Table) 02/16/21 18:47 Blood Culture - Preliminary Blood No Growth after 72 hours
[2021-02-20 14:26] LABS: Anisocytosis Moderate; Basophils # (A) 0.1 k/uL (0-0.2); Basophils % (A) 1 %; Eosinophils # (A) 0.1 k/uL (0-0.7); Eosinophils % (A) 1 %; HCT 27.3 % (34.0-46.0); HGB 8.7 gm/dL (11.4-16.0); Hypochromasia Marked; Lymphocytes % (A) 6 %; MCH 30.3 pg (25.0-35.0); MCHC 31.7 g/dL (31.0-37.0); Macrocytosis Slight; Mean Platelet Volume 10.1; Monocytes # (A) 0.5 k/uL (0-1.0); Monocytes % (A) 3 %; Neutrophils # (A) 13.2 k/uL (1.3-7.7); Neutrophils % (A) 88 %; Platelet Count 150 k/uL (150-450); Poikilocytosis Slight; RBC 2.86 m/uL (3.80-5.40); RDW 21.2 % (11.5-15.5)
[2021-02-20 14:43] LABS: MCV 95.5 fL (80.0-100.0)
[2021-02-20 14:49] LABS: ALT 15 U/L (4-34); African American GFR (CKD) >90 (>60 ml/min/1.73 sqM); Albumin 1.6 g/dL (3.5-5.0); Anion Gap 5 mmol/L; Blood Urea Nitrogen 9 mg/dL (7-17); Calcium 7.1 mg/dL (8.4-10.2); Carbon Dioxide 16 mmol/L (22-30); Chloride 110 mmol/L (98-107); Glucose 107 mg/dL (74-99); Non-African American GFR(CKD) >90 (>60 ml/min/1.73 sqM); Sodium 131 mmol/L (137-145); Total Protein 4.3 g/dL (6.3-8.2)
[2021-02-20 14:50] LABS: AST 29 U/L (14-36); Alkaline Phosphatase 340 U/L (38-126); Potassium 4.5 mmol/L (3.5-5.1)
[2021-02-20] MEDS: traMADol 50 MG TAB PO PRN (16:50)
[2021-02-20] MEDS: HYDROmorphone 0.5 MG/0.5 ML SYRINGE IVP PRN (22:14)
--- NOTE | 2021-02-20 22:44 | PN ---
PROGRESS NOTE DATE OF SERVICE: 02/20/2021 REASON FOR FOLLOWUP: Possible abdominal infection and a question of pneumonia. INTERVAL HISTORY: The patient is afebrile. The patient is status post celiac block for persistent abdominal pain and concern for pancreatic cancer. The patient denies having any chest pain, shortness of breath or cough. No nausea or vomiting and no diarrhea. PHYSICAL EXAMINATION: Blood pressure is 112/75, pulse of 80, temperature of 98. She is 97% on 5 L nasal cannula. General description is an elderly female lying in bed in no distress. Respiratory system: Unlabored breathing, decreased intensity of breath sounds. Heart S1, S2. Regular rate and rhythm. Abdomen soft, mildly distended. No guarding or rigidity. Extremities no edema of the feet. LABS: Hemoglobin is 8.6, white count 15, creatinine 0.68. Sputum is Carrie albicans. Blood culture has been negative. DIAGNOSTIC IMPRESSION AND PLAN: Patient admitted to hospital with feeling weak, shortness of breath concerning for possible pneumonia. Subsequent CT was suspicious for an abscess and has been reviewed with the radiologist; and there is no evidence of any drainable abscess, mostly ascites, and could be related to her underlying pancreatic cancer. She is on empiric antibiotics. Plan to transition to a short course of oral antibiotic on discharge. Continue supportive care. MMODL / IJN: [id number] /
[2021-02-20] MEDS: LACTATED RINGERS 1,000 ML IV SCH (22:58)
[2021-02-21 09:02] LABS: African American GFR (CKD) >90 (>60 ml/min/1.73 sqM); Anion Gap 7 mmol/L; Blood Urea Nitrogen 12 mg/dL (7-17); Calcium 7.6 mg/dL (8.4-10.2); Carbon Dioxide 16 mmol/L (22-30); Chloride 110 mmol/L (98-107); Glucose 172 mg/dL (74-99); Non-African American GFR(CKD) 81 (>60 ml/min/1.73 sqM); Potassium 4.7 mmol/L (3.5-5.1); Sodium 133 mmol/L (137-145)
[2021-02-21 09:04] LABS: Anisocytosis Moderate; Basophils # (A) 0.1 k/uL (0-0.2); Basophils % (A) 0 %; Eosinophils # (A) 0.2 k/uL (0-0.7); Eosinophils % (A) 1 %; HCT 30.5 % (34.0-46.0); HGB 9.6 gm/dL (11.4-16.0); Lymphocytes # (A) 1.6 k/uL (1.0-4.8); Lymphocytes % (A) 10 %; MCH 29.2 pg (25.0-35.0); MCHC 31.6 g/dL (31.0-37.0); MCV 92.5 fL (80.0-100.0); Macrocytosis Slight; Mean Platelet Volume 10.8; Monocytes # (A) 0.6 k/uL (0-1.0); Monocytes % (A) 4 %; Neutrophils # (A) 12.8 k/uL (1.3-7.7); Neutrophils % (A) 83 %; Platelet Count 198 k/uL (150-450); Poikilocytosis Slight; RDW 21.7 % (11.5-15.5); WBC 15.4 k/uL (3.8-10.6)
[2021-02-21] MEDS: IPRATROPIUM-ALBUTEROL 3 ML NEB INHALATION SCH ×3 (09:24→16:15)
[2021-02-21] MEDS: MAGNESIUM OXIDE 400 MG TAB PO SCH (10:00)
[2021-02-21] MEDS: CEFEPIME 2 GM in SODIUM CHLORIDE 0.9% 100 ML IVPB SCH (10:00)
[2021-02-21] MEDS: SENNOSIDES-DOCUSATE SODIUM 1 EACH TAB PO SCH (10:00)
[2021-02-21] MEDS: POTASSIUM CHLORIDE ER 10 MEQ TAB.ER.PRT PO SCH (10:00)
[2021-02-21] MEDS: lisinopriL 20 MG TAB PO SCH (10:00)
[2021-02-21] MEDS: FOLIC ACID 1 MG TAB PO SCH (10:00)
[2021-02-21] MEDS: FUROSEMIDE 10 MG/ML 4 ML VIAL IV SCH (10:00)
[2021-02-21] MEDS: MORPHINE SULFATE ER 15 MG TABLET PO SCH (10:01)
[2021-02-21] MEDS: DOCUSATE 100 MG CAP PO SCH (10:07)
[2021-02-21] MEDS: GABAPENTIN 300 MG CAP PO SCH (10:07)
[2021-02-21] MEDS: NICOTINE 14MG/24HR PATCH TRANSDERM SCH (10:07)
[2021-02-21] MEDS: PANTOPRAZOLE 40 MG TABLET PO SCH (10:07)
[2021-02-21] MEDS: LACTULOSE 20 GM/30 ML CUP PO SCH (10:08)
[2021-02-21] MEDS: HEPARIN SODIUM,PORCINE/PF 5,000 UNIT/0.5 ML SYRINGE SQ SCH (10:08)
[2021-02-21] MEDS: metroNIDAZOLE 500 MG TAB PO SCH (10:11)
--- NOTE | 2021-02-21 11:17 | P.PN ---
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 He is admitted to the hospital secondary to harman michele. Cardiology was consulted to evaluate the patient for abnormal troponins. The patient denies any chest pain or pressure. She denies shortness of breath. She continues to have lower extremity edema. She received a one-time dose of IV Lasix yesterday. Echocardiogram completed revealed ejection fraction 60-65%, mild mitral regurgitation, and large pleural effusion. 02/19/2021 Patient examined this morning at the bedside. Patient denies chest pain or pressure. She denies shortness of breath. She continues to have lower extremity edema. She received a one-time dose of IV Lasix yesterday and was started on oral Lasix today. 02/20/2021 Patient examined this morning at the bedside. Patient is scheduled to undergo a diagnostic celiac plexus block today with anesthesia. Patient denies chest pain or pressure. She denies shortness of breath. Patient continues to have lower extremity edema despite being on Lasix every 12 hours. 02/21/2021 Patient examined this morning at the bedside. Patient denies chest pain or pressure. Patient denies shortness of breath. She remains on IV Lasix. She continues to have lower extremity edema. Patient is very anxious to be discharged home today. PHYSICAL EXAM: VITAL SIGNS: Reviewed. GENERAL: Well-developed in no acute distress. NECK: Supple. No JVD or thyromegaly LUNGS: Respirations even and unlabored. Lungs diminished to auscultation bilaterally. HEART: Regular rate and rhythm. S1 and S2 heard. EXTREMITIES: Normal range of motion. No clubbing or cyanosis. Peripheral pulses intact. 2+ bilateral lower extremity edema ASSESSMENT: Pneumonia Pancreatic cancer Lower extremity edema Abnormal troponins, not suggestive of ACS Anemia, s/p RBC transfusion PLAN: Norvasc discontinued secondary to lower extremity edema Continue IV lasix for lower extremity edema Accurate I&O Monitor kidney function The patient is anxious to be discharged home today. She may be discharged home today from a cardiac standpoint and follow up on an outpatient basis. Further recommendations pending patient course Nurse practitioner note has been reviewed by physician. Signing provider agrees with the documented findings, assessment, and plan of care. Objective - Vital Signs Vital signs: Vital Signs Temp 97.9 F 12/03/21 09:00 Pulse 86 02/21/21 09:37 Resp 18 02/21/21 09:00 BP 134/88 02/21/21 09:00 Pulse Ox 94 L 02/21/21 09:00 Intake & Output 02/20/21 02/21/21 02/21/21 18:59 06:59 18:59 Intake Total 340 120 Output Total 200 100 Balance 340 -200 20 Weight 55.6 kg 54.3 kg Intake: IV 100 Oral 240 120 Output: Urine 200 100 Stool 0 Other: # Voids 1 1 0 # Bowel Movements 1 0 # Emeses 3 - Labs CBC & Chem 7: 02/21/21 08:27 02/21/21 08:27 Labs: Abnormal Lab Results - Last 24 Hours (Table) 02/20/21 02/20/21 02/20/21 Range/Units 14:00 14:00 14:00 WBC 15.0 H (3.8-10.6) k/uL RBC 2.86 L (3.80-5.40) m/uL Hgb 8.7 L (11.4-16.0) gm/dL Hct 27.3 L (34.0-46.0) % RDW 21.2 H (11.5-15.5) % Neutrophils # 13.2 H (1.3-7.7) k/uL Sodium 131 L (137-145) mmol/L Chloride 110 H (98-107) mmol/L Carbon Dioxide 16 L (22-30) mmol/L Glucose 107 H (74-99) mg/dL Calcium 7.1 L (8.4-10.2) mg/dL Magnesium 1.4 L (1.6-2.3) mg/dL Alkaline Phosphatase 340 H (38-126) U/L Total Protein 4.3 L (6.3-8.2) g/dL Albumin 1.6 L (3.5-5.0) g/dL 02/21/21 02/21/21 Range/Units 08:27 08:27 WBC 15.4 H (3.8-10.6) k/uL RBC 3.30 L (3.80-5.40) m/uL Hgb 9.6 L (11.4-16.0) gm/dL Hct 30.5 L (34.0-46.0) % RDW 21.7 H (11.5-15.5) % Neutrophils # 12.8 H (1.3-7.7) k/uL Sodium 133 L (137-145) mmol/L Chloride 110 H (98-107) mmol/L Carbon Dioxide 16 L (22-30) mmol/L Glucose 172 H (74-99) mg/dL Calcium 7.6 L (8.4-10.2) mg/dL Magnesium (1.6-2.3) mg/dL Alkaline Phosphatase (38-126) U/L Total Protein (6.3-8.2) g/dL Albumin (3.5-5.0) g/dL Microbiology - Last 24 Hours (Table) 02/16/21 18:47 Blood Culture - Preliminary Blood No Growth after 96 hours 02/16/21 09:29 Gram Stain - Final Sputum Sputum Culture - Final Carrie sp,not albicans/galbr
[2021-02-21 13:16] VITALS: BP 129/64; PULSE 62; RESP 16; TEMP 97.8
[2021-02-21] MEDS: LACTATED RINGERS 1,000 ML IV SCH (15:10)
--- NOTE | 2021-02-21 17:36 | PN ---
PROGRESS NOTE DATE OF SERVICE: 02/21/2021 REASON FOR FOLLOWUP: Possible abdominal infection and a question of pneumonia. INTERVAL COURSE: The patient is afebrile. The patient is currently breathing comfortably on room air. Denies any chest pain, shortness of breath or cough. Abdominal pain is currently controlled. No nausea, no vomiting and no diarrhea. PHYSICAL EXAMINATION: Blood pressure 129/61, pulse of 52, temperature 97.8. She is 95% on room air. General description is an elderly female lying in bed in no distress. Respiratory system: Unlabored breathing, decreased intensity of breath sounds. No wheeze. Heart S1, S2. Regular rate and rhythm. Abdomen soft, mildly distended. No guarding or rigidity. LABS: Creatinine 0.77, hemoglobin 9.1, white count 15.4. DIAGNOSTIC IMPRESSION AND PLAN: Patient admitted to the hospital with abdominal pain. There was some cough and question of pneumonia. CT was abnormal, however, was reviewed with radiologist, no evidence of any abscess. The patient has shown overall improvement. Will give a short course of oral Augmentin, discharge on Keflex and close outpatient followup. MMODL / IJN: [id number] /
== END 2021-02-21 16:12 | disposition home or self-care (01) | DRG 177 ==
LOC: EC 10:41 → 3SCARD 16:24
PROVIDERS: ADMIT Hospitalist; ATTEND Hospitalist
PROC: 30233N1 Transfusion of Nonautologous Red Blood Cells into Peripheral Vein, Percutaneous Approach (ICD-10-PCS; 2021-02-17)
PROC: 3E0T3BZ Introduction of Anesthetic Agent into Peripheral Nerves and Plexi, Percutaneous Approach (ICD-10-PCS; principal; 2021-02-20 14:30)
DX: J15.6 Pneumonia due to other Gram-negative bacteria (principal); E43 Unspecified severe protein-calorie malnutrition; J96.01 Acute respiratory failure with hypoxia; C25.9 Malignant neoplasm of pancreas, unspecified; E87.1 Hypo-osmolality and hyponatremia; E87.2 Acidosis; J44.0 Chronic obstructive pulmonary disease with (acute) lower respiratory infection; J90 Pleural effusion, not elsewhere classified; R18.8 Other ascites; K86.1 Other chronic pancreatitis; Z20.822 Contact with and (suspected) exposure to COVID-19; D64.9 Anemia, unspecified; D69.6 Thrombocytopenia, unspecified; E11.9 Type 2 diabetes mellitus without complications; E78.5 Hyperlipidemia, unspecified; E87.70 Fluid overload, unspecified; F17.210 Nicotine dependence, cigarettes, uncomplicated; G89.29 Other chronic pain; I10 Essential (primary) hypertension; Z88.1 Allergy status to other antibiotic agents; Z85.07 Personal history of malignant neoplasm of pancreas; Z80.0 Family history of malignant neoplasm of digestive organs; Z79.899 Other long term (current) drug therapy; M81.0 Age-related osteoporosis without current pathological fracture; M19.90 Unspecified osteoarthritis, unspecified site; F32.A Depression, unspecified; F41.9 Anxiety disorder, unspecified; K21.9 Gastro-esophageal reflux disease without esophagitis; K59.00 Constipation, unspecified; R77.8 Other specified abnormalities of plasma proteins; R74.8 Abnormal levels of other serum enzymes; R60.0 Localized edema; R79.89 Other specified abnormal findings of blood chemistry
CPT/HCPCS: 36415; 64530; 71045; 71046; 71275; 74177; 80048; 80053; 80202; 81001; 82150; 82607; 82728; 82746; 83540; 83550; 83605; 83690; 83735; 83880; 84145; 84484; 85025; 85027; 85379; 85610; 85730; 86140; 86850; 86900; 86901; 86920; 87040; 87070; 87086; 87205; 87635; 93005; 93306; 93970; 94640; 94760; 96361; 96365; 96366; 96375; 99152; 99153; 99285

== ENCOUNTER 2021-03-18 18:26 | Inpatient (IN) | payer MEDICARE, OTHER ==
--- NOTE | 2021-03-18 18:58 | ED ---
General Adult HPI - General Chief complaint: Shortness of Breath Stated complaint: SOB Time Seen by Provider: 03/18/21 18:45 Source: patient, EMS, RN notes reviewed, old records reviewed Mode of arrival: EMS Limitations: no limitations - History of Present Illness Initial comments: This is a 66-year-old female who presents to the emergency department with a past medical history significant for pancreatic cancer. Patient ran out of her pain medicine yesterday and today she is complaining about some shortness of breath daughter thinks it may have something to do with the fact that she has no pain medicine. Patient denies any fever or chills. Patient denies abdominal pain patient denies nausea vomiting diarrhea. Patient denies any chest pain or palpitations. Patient denies headache patient denies numbness weakness. - Related Data Home Medications Medication Instructions Recorded Confirmed Gabapentin [Neurontin] 300 mg PO BID 02/08/21 03/07/21 Potassium Chloride ER [K-Dur 10] 10 meq PO BID 02/08/21 03/07/21 traMADol HCL 50 mg PO Q6H PRN 02/08/21 03/07/21 Previous Rx's Medication Instructions Recorded Docusate [Colace] 200 mg PO DAILY #30 cap 01/06/21 Lactulose 20 gm PO DAILY 4 Days #120 ml 02/12/21 Magnesium Oxide [Mag-Ox] 400 mg PO BID 30 Days #60 tab 02/12/21 Pantoprazole Sodium [Protonix] 40 mg PO DAILY #30 tab 02/12/21 Amoxic-Pot Clav 875-125Mg 1 tab PO Q12HR 7 Days #14 tab 02/21/21 [Augmentin 875-125] Folic Acid 1 mg PO DAILY #30 tab 02/21/21 Furosemide [Lasix] 40 mg PO BID #60 tablet 02/21/21 Morphine Sulfate ER [Ms Contin] 15 mg PO Q12HR 3 Days #6 tablet 02/21/21 Sennosides-Docusate Sodium 2 each PO BID PRN #60 tab 02/21/21 [Senokot-S] lisinopriL [Zestril] 40 mg PO DAILY #30 tab 02/21/21 Allergies Allergy/AdvReac Type Severity Reaction Status Date / Time amylase [From Zenpep] AdvReac stomach Verified 03/18/21 18:52 pain erythromycin base AdvReac Nausea Verified 03/18/21 18:52 [Erythromycin Base] gabapentin AdvReac Hallucinati Verified 03/18/21 18:52 ons lipase [From Zenpep] AdvReac stomach Verified 03/18/21 18:52 pain protease [From Zenpep] AdvReac stomach Verified 03/18/21 18:52 pain Review of Systems ROS Statement: Those systems with pertinent positive or pertinent negative responses have been documented in the HPI. ROS Other: All systems not noted in ROS Statement are negative. Past Medical History Past Medical History: Cancer, GERD/Reflux, Hyperlipidemia, Hypertension, Musculoskeletal Disorder, Osteoarthritis (OA) Additional Past Medical History / Comment(s): Osteoporosis, Lower Back Pain, Sciatica. TOLD YEARS AGO SHE HAD HEART MURMUR- NO TX, HX ACUTE BRONCHITIS(SMOKER), August 2020 pancreatic cancer. Current head tremor. Feet, ankles and legs swollen. History of Any Multi-Drug Resistant Organisms: None Reported Past Surgical History: Orthopedic Surgery, Tubal Ligation Additional Past Surgical History / Comment(s): 2 pins in right hip-dislocated 1975. Past Anesthesia/Blood Transfusion Reactions: No Reported Reaction Past Psychological History: Anxiety, Depression Smoking Status: Current every day smoker - Past Family History Mother Family Medical History: Liver Disease Father Family Medical History: Cancer Additional Family Medical History / Comment(s): Lung or liver cancer. General Exam - General Exam Comments Initial Comments: GENERAL: Patient is well-developed and well-nourished. Patient is nontoxic and well- hydrated and is in no acute distress. ENT: Neck is soft and supple. No significant lymphadenopathy is noted. Oropharynx is clear. Moist mucous membranes. Neck has full range of motion without eliciting any pain. EYES: The sclera were anicteric and conjunctiva were pink and moist. Extraocular movements were intact and pupils were equal round and reactive to light. Eyelids were unremarkable. PULMONARY: Rhonchi throughout CARDIOVASCULAR: There is a regular rate and rhythm without any murmurs gallops or rubs. ABDOMEN: Soft and nontender with normal bowel sounds. SKIN: Skin is clear with no lesions or rashes and otherwise unremarkable. NEUROLOGIC: Patient is alert and oriented x3. Cranial nerves II through XII are grossly intact. Motor and sensory are also intact. Normal speech, volume and content. Symmetrical smile. MUSCULOSKELETAL: Normal extremities with adequate strength and full range of motion. 2+ edema LYMPHATICS: No significant lymphadenopathy is noted PSYCHIATRIC: Normal psychiatric evaluation. Limitations: no limitations Course Vital Signs 03/18/21 03/18/21 03/18/21 18:47 19:32 20:32 Temperature 97.7 F Pulse Rate 106 H 103 H 107 H Respiratory 18 18 18 Rate Blood Pressure 101/76 109/67 O2 Sat by Pulse 96 97 Oximetry Medical Decision Making - Medical Decision Making EKG shows sinus rhythm with occasional PVC at 97 bpm [place] interval is 118 QRS is 82 QT interval 364 QTC is 449. Patient's EKG shows no ST segment elevation or depression. Chest x-ray shows no acute about it. Patient had elevated white counts I started her on a gram of Rocephin prophylactically. I spoke with [facility] agreed to admit the rian brown admitted the patient I wrote admitting orders troponin was 0.145 her repeated that I gave her a gram of magnesium sulfate for the 1.5 magnesium and I offered and a urine as well and I consulted oncology - Lab Data Result diagrams: 03/18/21 19:26 03/18/21 19:26 Lab Results 03/18/21 03/18/21 03/18/21 Range/Units 19:26 19:26 19:26 WBC 21.5 H (3.8-10.6) k/uL RBC 3.01 L (3.80-5.40) m/uL Hgb 9.2 L (11.4-16.0) gm/dL Hct 29.1 L (34.0-46.0) % MCV 96.8 (80.0-100.0) fL MCH 30.6 (25.0-35.0) pg MCHC 31.6 (31.0-37.0) g/dL RDW 18.0 H (11.5-15.5) % Plt Count 103 L D (150-450) k/uL MPV 14.7 Neutrophils % 91 % Lymphocytes % 6 % Monocytes % 2 % Eosinophils % 0 % Basophils % 0 % Neutrophils # 19.6 H (1.3-7.7) k/uL Lymphocytes # 1.2 (1.0-4.8) k/uL Monocytes # 0.5 (0-1.0) k/uL Eosinophils # 0.0 (0-0.7) k/uL Basophils # 0.0 (0-0.2) k/uL Hypochromasia Slight Anisocytosis Slight Macrocytosis Slight PT 13.9 H (9.0-12.0) sec INR 1.4 H (<1.2) APTT 32.6 H (22.0-30.0) sec Sodium 133 L (137-145) mmol/L Potassium 4.2 (3.5-5.1) mmol/L Chloride 110 H (98-107) mmol/L Carbon Dioxide 15 L (22-30) mmol/L Anion Gap 8 mmol/L BUN 26 H (7-17) mg/dL Creatinine 1.49 H (0.52-1.04) mg/dL Est GFR (CKD-EPI)AfAm 42 (>60 ml/min/1.73 sqM) Est GFR (CKD-EPI)NonAf 37 (>60 ml/min/1.73 sqM) Glucose 108 H (74-99) mg/dL Plasma Lactic Acid Zen (0.7-2.0) mmol/L Calcium 7.1 L (8.4-10.2) mg/dL Magnesium 1.5 L (1.6-2.3) mg/dL Total Bilirubin 0.7 (0.2-1.3) mg/dL AST 25 (14-36) U/L ALT 16 (4-34) U/L Alkaline Phosphatase 374 H (38-126) U/L Troponin I (0.000-0.034) ng/mL Total Protein 4.3 L (6.3-8.2) g/dL Albumin 1.5 L (3.5-5.0) g/dL Coronavirus (PCR) (Not Detectd) 03/18/21 03/18/21 03/18/21 Range/Units 19:26 19:26 19:26 WBC (3.8-10.6) k/uL RBC (3.80-5.40) m/uL Hgb (11.4-16.0) gm/dL Hct (34.0-46.0) % MCV (80.0-100.0) fL MCH (25.0-35.0) pg MCHC (31.0-37.0) g/dL RDW (11.5-15.5) % Plt Count (150-450) k/uL MPV Neutrophils % % Lymphocytes % % Monocytes % % Eosinophils % % Basophils % % Neutrophils # (1.3-7.7) k/uL Lymphocytes # (1.0-4.8) k/uL Monocytes # (0-1.0) k/uL Eosinophils # (0-0.7) k/uL Basophils # (0-0.2) k/uL Hypochromasia Anisocytosis Macrocytosis PT (9.0-12.0) sec INR (<1.2) APTT (22.0-30.0) sec Sodium (137-145) mmol/L Potassium (3.5-5.1) mmol/L Chloride (98-107) mmol/L Carbon Dioxide (22-30) mmol/L Anion Gap mmol/L BUN (7-17) mg/dL Creatinine (0.52-1.04) mg/dL Est GFR (CKD-EPI)AfAm (>60 ml/min/1.73 sqM) Est GFR (CKD-EPI)NonAf (>60 ml/min/1.73 sqM) Glucose (74-99) mg/dL Plasma Lactic Acid Zen 1.5 (0.7-2.0) mmol/L Calcium (8.4-10.2) mg/dL Magnesium (1.6-2.3) mg/dL Total Bilirubin (0.2-1.3) mg/dL AST (14-36) U/L ALT (4-34) U/L Alkaline Phosphatase (38-126) U/L Troponin I 0.145 H* (0.000-0.034) ng/mL Total Protein (6.3-8.2) g/dL Albumin (3.5-5.0) g/dL Coronavirus (PCR) Not Detected (Not Detectd) Disposition Clinical Impression: Elevated troponin, Hypomagnesemia, Leukocytosis, Renal insufficiency, History of pancreatic cancer Disposition: ADMITTED IP TO THIS HOSP Referrals: Sheron Lorenz MD [Primary Care Provider] - 1-2 days Time of Disposition: 20:44
[2021-03-18 19:41] LABS: Anisocytosis Slight; Basophils % (A) 0 %; Eosinophils % (A) 0 %; HCT 29.1 % (34.0-46.0); HGB 9.2 gm/dL (11.4-16.0); Hypochromasia Slight; Lymphocytes # (A) 1.2 k/uL (1.0-4.8); Lymphocytes % (A) 6 %; MCH 30.6 pg (25.0-35.0); MCHC 31.6 g/dL (31.0-37.0); MCV 96.8 fL (80.0-100.0); Macrocytosis Slight; Mean Platelet Volume 14.7; Monocytes # (A) 0.5 k/uL (0-1.0); Monocytes % (A) 2 %; Neutrophils # (A) 19.6 k/uL (1.3-7.7); Neutrophils % (A) 91 %; RBC 3.01 m/uL (3.80-5.40); WBC 21.5 k/uL (3.8-10.6)
[2021-03-18 19:55] LABS: Albumin 1.5 g/dL (3.5-5.0); Calcium 7.1 mg/dL (8.4-10.2); Magnesium 1.5 mg/dL (1.6-2.3); Potassium 4.2 mmol/L (3.5-5.1); Total Bilirubin 0.7 mg/dL (0.2-1.3); Total Protein 4.3 g/dL (6.3-8.2)
[2021-03-18 20:20] LABS: INR 1.4 (<1.2); Partial Thromboplastin Time 32.6 sec (22.0-30.0); Prothrombin Time 13.9 sec (9.0-12.0)
[2021-03-18] MEDS ORDERED: MAGNESIUM SULFATE-D5W PMX 1 GM in DEXTROSE/WATER 1 100ML.BAG IVPB ONE (20:23)
[2021-03-18] MEDS ORDERED: KETOROLAC 30 MG/ML 1 ML VIAL IVP STA (20:23)
[2021-03-18 20:25] LABS: Platelet Count 103 k/uL (150-450)
--- NOTE | 2021-03-18 20:35 | XR ---
EXAMINATION TYPE: XR chest 2V DATE OF EXAM: 03/18/2021 8:17 PM COMPARISON: Radiograph 02/17/2021 CLINICAL INDICATION:Female, 66 years old with history of difficulty breathing TECHNIQUE: Frontal and lateral views of the chest. FINDINGS: Lungs/Pleura: There is no evidence of pleural effusion, focal consolidation, or pneumothorax. Pulmonary vascularity: Unremarkable. Heart/mediastinum: Cardiomediastinal silhouette is unremarkable. Musculoskeletal: No acute osseous pathology. Other: Vascular stent within the abdomen. Lines/Tubes: [id number] projecting over the right hemithorax with distal tip in this SVC IMPRESSION: No acute cardiopulmonary disease/process.
[2021-03-18] MEDS ORDERED: cefTRIAXone IN SWFI 1,000 MG/10 ML SYRINGE IVP STA (20:40)
[2021-03-18] MEDS ORDERED: SODIUM CHLORIDE 0.9% 1,000 ML IV ONE (20:44)
[2021-03-19] MEDS ORDERED: traMADol 50 MG TAB PO PRN (11:26)
[2021-03-19] MEDS ORDERED: ONDANSETRON 4 MG/2 ML VIAL IVP PRN (11:29)
[2021-03-19] MEDS: DOCUSATE 100 MG CAP PO SCH (11:42)
[2021-03-19] MEDS: FOLIC ACID 1 MG TAB PO SCH (11:42)
[2021-03-19] MEDS: MAGNESIUM OXIDE 400 MG TAB PO SCH ×2 (11:42→20:49)
[2021-03-19] MEDS: FUROSEMIDE 10 MG/ML 4 ML VIAL IV SCH ×2 (11:42→20:50)
[2021-03-19] MEDS: MORPHINE SULFATE ER 15 MG TABLET PO SCH ×2 (11:42→20:49)
[2021-03-19] MEDS: PANTOPRAZOLE 40 MG TABLET PO SCH (11:42)
[2021-03-19] MEDS: LACTULOSE 20 GM/30 ML CUP PO SCH (11:43)
--- NOTE | 2021-03-19 12:50 | P.CONS ---
History of Present Illness - Reason for Consult Consult date: 03/19/21 pancreatic adenocarcinoma Requesting physician: David Gorman - Chief Complaint SOB, ran out of pain meds - History of Present Illness Ms. Morel is a very pleasant 65 yr old -Citizen Of [place] female, well known to our service. Initially hospitalized in mid 09/09 because of an allergic reaction. During that admission she was found to have elevated liver enzymes. Abd US 09/04/20 showed common bile duct and intrahepatic duct dilatation with possible mass in the pancreatic head. This led to GI consult and MRCP. This confirmed mild to moderate central intrahepatic along with extrahepatic biliary dilatation. There was abrupt cutoff seen in the region of the pancreatic head. There was suggestion of a pancreatic head mass measuring 3.8 x 3.2 cm. There appeared to be generalized atrophy and ductal dilatation in the pancreas. There was no suspicious adenopathy or liver lesions seen. GI recommended a referral to [facility] for endoscopic ultrasound. Prior to that she was admitted to the hospital for increasing abdominal pain, and decreased appetite on 09/24/20, bilirubin was 2.4, AST 501, ALT 462 and alkaline phosphatase 778. She was transferred to [facility] where she underwent an EUS on 10/02/20. 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 Was admitted to the hospital in the week of 10/29/20 with increased abdominal pain and fever. This was controlled with adjustment of pain medications. A celiac plexus block was planned but put on hold due to the fever. Repeat imaging showed no recurrent biliary obstruction. PET 11/01/20 showed no evidence of metastatic disease. She has had multiple admissions with c/o abdominal pain, clinically due to acute on chronic pancreatitis exacerbations. It also appears that the patient may not be always compliant with her recommended pain medication regimen. She has responded well to supportive care and is able to be discharged after 1-3 days stays. Due to the admissions surgical evaluation was delayed but, she did ultimately see Dr. Rock [facility]. She was felt to be a candidate for treatment with curative intent. It was recommended that she have neoadjuvant chemotherapy followed by evaluation for possible Whipple's procedure. She started chemotherapy with gemcitabine and Abraxane on 12/23/20. She was hospitalized after 2/3 weekly cycles of cycle 1. Treatment was delayed. She had day 1 of cycle 2 then was again hospitalized for abd pain. Pt cont to have difficulty with pain meds and pancreatic enzyme consistency. She was seen in [facility] 03/03 and summarized her complicated course - she started gemcitabine and Abraxane on 12/23/20. However she was only able to have day 1 and 8 of cycle #1. Treatment since then was interrupted by multiple hospitalizations mainly for abdominal pain. This would typically responds to one to 3 days of inpatient IV pain medications. Management was complicated as patient initially refused to take any stronger pain medications. She was also prescribed pancreatic enzyme supplement but was not taking as prescribed . She had 5 admissions from end of Dec through early Feb. for pain as well as left l ower lobe pneumonia. During her hospitalization in early 03/11, the patient was finally agreeable to take longer acting pain medication and was started on MS Contin. She also received celiac plexus block. Restaging CT scans done in early Feb showed evidence of chronic liver disease and ascites, but no obvious metastatic progression. She was seen by Dr. Muller 03/03 and did have cycle 2 day 1 on 03/07. She is currently admitted with c/o SOB, persistent, harsh cough, denied fever, nausea, vomiting, she was eating cereal and stated that the nerve block and pain meds were helping and she is not currently in any pain. No c/o diarrhea or constipation at this time. Review of Systems 10 point ROS is neg except as stated in HPI Past Medical History Past Medical History: Cancer, GERD/Reflux, Hyperlipidemia, Hypertension, Musculoskeletal Disorder, Osteoarthritis (OA) Additional Past Medical History / Comment(s): Osteoporosis, lower Back Pain, Sciatica. TOLD YEARS AGO SHE HAD HEART MURMUR- NO TX, HX ACUTE BRONCHITIS(SMOKER), August 2020 pancreatic cancer. Current head tremor. Feet, ankles and legs swelling History of Any Multi-Drug Resistant Organisms: None Reported Past Surgical History: Orthopedic Surgery, Tubal Ligation Additional Past Surgical History / Comment(s): 2 pins in right hip-dislocated 1975. Past Anesthesia/Blood Transfusion Reactions: No Reported Reaction Past Psychological History: Anxiety, Depression Smoking Status: Current every day smoker Past Alcohol Use History: None Reported Additional Past Alcohol Use History / Comment(s): Started smoking at age 17(1971), now smokes <1 ppd. Quit drinking August 2020, had been drinking 3-4 beers daily. Past Drug Use History: None Reported Additional Drug Use History / Comment(s): Quit drinking 09/07/20 was drinking 3-4 beers a day - Past Family History Mother Family Medical History: Liver Disease Father Family Medical History: Cancer Additional Family Medical History / Comment(s): Lung or liver cancer. Medications and Allergies Home Medications Medication Instructions Recorded Confirmed Type Docusate [Colace] 200 mg PO DAILY #30 cap 01/06/21 03/18/21 Rx Gabapentin [Neurontin] 300 mg PO BID 02/08/21 03/18/21 History Potassium Chloride ER [K-Dur 10] 10 meq PO BID 02/08/21 03/18/21 History traMADol HCL 50 mg PO Q6H PRN 02/08/21 03/18/21 History Lactulose 20 gm PO DAILY 4 Days #120 ml 02/12/21 03/18/21 Rx Magnesium Oxide [Mag-Ox] 400 mg PO BID 30 Days #60 tab 02/12/21 03/18/21 Rx Pantoprazole Sodium [Protonix] 40 mg PO DAILY #30 tab 02/12/21 03/18/21 Rx Folic Acid 1 mg PO DAILY #30 tab 02/21/21 03/18/21 Rx Furosemide [Lasix] 40 mg PO BID #60 tablet 02/21/21 03/18/21 Rx Ondansetron HCl [Zofran] 4 mg PO Q6H PRN 03/18/21 03/18/21 History lisinopriL 40 mg PO DAILY 03/18/21 03/18/21 History Allergies Allergy/AdvReac Type Severity Reaction Status Date / Time amylase [From Zenpep] AdvReac stomach Verified 03/18/21 18:52 pain erythromycin base AdvReac Nausea Verified 03/18/21 18:52 [Erythromycin Base] gabapentin AdvReac Hallucinati Verified 03/18/21 18:52 ons lipase [From Zenpep] AdvReac stomach Verified 03/18/21 18:52 pain protease [From Zenpep] AdvReac stomach Verified 03/18/21 18:52 pain Physical Exam Vitals: Vital Signs Temp Pulse Pulse Resp BP BP Pulse Ox 03/19/21 04:00 97.5 F L 90 18 123/84 97 03/19/21 02:00 95 18 03/18/21 21:45 97.3 F L 95 18 93/63 98 03/18/21 21:10 90 18 103/66 03/18/21 20:32 107 H 18 97 03/18/21 19:32 103 H 18 109/67 03/18/21 18:47 97.7 F 106 H 18 101/76 96 Intake and Output 03/18/21 03/19/21 03/19/21 22:59 06:59 14:59 Other: # Voids 0 Weight 49.442 kg 52.4 kg - Constitutional General appearance: cooperative, mild distress, thin - EENT Eyes: anicteric sclerae, EOMI ENT: hearing grossly normal - Neck Neck: no lymphadenopathy - Respiratory Respiratory: bilateral: rhonchi - Cardiovascular Rhythm: regular Heart sounds: normal: S1, S2 Abnormal Heart Sounds: no systolic murmur, no diastolic murmur, no rub, no S3 Gallop, no S4 Gallop, no click, no other leg Peripheral Edema: bilateral: None - Gastrointestinal upper abd is firm to palpation, no rebound General gastrointestinal: soft, tenderness - Neurologic Neurologic: CNII-XII intact - Musculoskeletal Musculoskeletal: generalized weakness - Psychiatric Psychiatric: A&O x's 3, appropriate affect, intact judgment & insight Results CBC & Chem 7: 03/18/21 19:26 03/18/21 19:26 Labs: Abnormal Lab Results - Last 24 Hours (Table) 03/18/21 03/18/21 03/18/21 Range/Units 19:26 19:26 19:26 WBC 21.5 H (3.8-10.6) k/uL RBC 3.01 L (3.80-5.40) m/uL Hgb 9.2 L (11.4-16.0) gm/dL Hct 29.1 L (34.0-46.0) % RDW 18.0 H (11.5-15.5) % Plt Count 103 L D (150-450) k/uL Neutrophils # 19.6 H (1.3-7.7) k/uL PT 13.9 H (9.0-12.0) sec INR 1.4 H (<1.2) APTT 32.6 H (22.0-30.0) sec Sodium 133 L (137-145) mmol/L Chloride 110 H (98-107) mmol/L Carbon Dioxide 15 L (22-30) mmol/L BUN 26 H (7-17) mg/dL Creatinine 1.49 H (0.52-1.04) mg/dL Glucose 108 H (74-99) mg/dL Calcium 7.1 L (8.4-10.2) mg/dL Magnesium 1.5 L (1.6-2.3) mg/dL Alkaline Phosphatase 374 H (38-126) U/L Troponin I (0.000-0.034) ng/mL Total Protein 4.3 L (6.3-8.2) g/dL Albumin 1.5 L (3.5-5.0) g/dL 03/18/21 03/19/21 Range/Units 19:26 05:08 WBC (3.8-10.6) k/uL RBC (3.80-5.40) m/uL Hgb (11.4-16.0) gm/dL Hct (34.0-46.0) % RDW (11.5-15.5) % Plt Count (150-450) k/uL Neutrophils # (1.3-7.7) k/uL PT (9.0-12.0) sec INR (<1.2) APTT (22.0-30.0) sec Sodium (137-145) mmol/L Chloride (98-107) mmol/L Carbon Dioxide (22-30) mmol/L BUN (7-17) mg/dL Creatinine (0.52-1.04) mg/dL Glucose (74-99) mg/dL Calcium (8.4-10.2) mg/dL Magnesium (1.6-2.3) mg/dL Alkaline Phosphatase (38-126) U/L Troponin I 0.145 H* 0.143 H* (0.000-0.034) ng/mL Total Protein (6.3-8.2) g/dL Albumin (3.5-5.0) g/dL Chest x-ray: report reviewed (no acute pulm process is reported) Assessment and Plan (1) Shortness of breath Current Visit: Yes Status: Acute Priority: High Code(s): R06.02 - SHORTNESS OF BREATH SNOMED Code(s): 956988413 (2) Elevated troponin Current Visit: Yes Status: Acute Priority: High Code(s): R77.8 - OTHER SPECIFIED ABNORMALITIES OF PLASMA PROTEINS SNOMED Code(s): 926920516 (3) Pancreatic cancer Narrative/Plan: Recent imaging was neg for progression of disease. She did have a treatment 12 days ago. Will try to keep her on schedule or get back to Surgeon for recommendations as it is not likely that pt is going to have any consistent neoadjuvant treatment. She has a f/u with Dr. Muller on 04/09/21. Not sure of her chemo schedule at [facility]. She is not c/o pain. Keep current oxycontin BID and tramadol for breakthrough. Current Visit: No Status: Chronic Priority: Medium Code(s): C25.9 - MALIGNANT NEOPLASM OF PANCREAS, UNSPECIFIED SNOMED Code(s): 721489048 Plan: ECHO being done for SOB CTA to rule out PE
--- NOTE | 2021-03-19 13:15 | P.CRDCN ---
History of Present Illness History of present illness: This is a pleasant 65 years old -Citizen Of [place] female with past medical history of pancreatic cancer currently on chemotherapy states she is on her 6th treatment she follows with Dr. Muller, diabetes mellitus, hypertension, hyperlipidemia, osteoarthritis, chronic back pain with sciatica. She does not follow with a health care coach. We are consulted for elevated troponin. She presents to the emergency department with worsening shortness of breath and lower extremity edema. She also had an episode of chest pain last night. Located on the right side of her chest, non radiating non-exertional. No specific aggravating or alleviating factors. She denies associated nausea, diaphoresis, lightheadedness or dizziness. She did have some episodes of diarrhea. She does have shortness of breath and some symptoms of orthopnea. She only sleeps with 1 pillow. No history of CAD, VA, Stroke. She states Dr. Muller recently started her on PO Lasix last week, but she has not picked up the prescription yet. DIAGNOSTICS EKG reveals sinus rhythm HR 97, sinus arrhythmia, PVC, non-specific ST-T wave abnormality 02/17/21 Echocardiogram revealed EF of 6065 percent, mild mitral regurgitation, large pleural effusion. Chest xray no acute cardiopulmonary process identified. Laboratory reviewed, troponin 0.14, 0.14, WBC 21.5, hemoglobin 0.2, platelets 103, INR 1.4, sodium 133, potassium 4.2, BUN 26, serum creatinine 1.4, magnesium 1.5, proBNP 7990, albumin 1.5. Current home medications- potassium chloride, lisinopril 40 mg daily, Lasix 40 mg twice a day REVIEW OF SYSTEMS At the time of my exam: CONSTITUTIONAL: Denies fever or chills. CARDIOVASCULAR: Denies chest pain, +shortness of breath, +orthopnea, +LE edema Denies PND or palpitations. RESPIRATORY: Denies cough. GASTROINTESTINAL: Denies abdominal pain, diarrhea, constipation, nausea or vomiting. MUSCULOSKELETAL: Denies myalgias. NEUROLOGIC: Denies numbness, tingling, headacbe or weakness. ENDOCRINE: Denies fatigue, weight change, polydipsia or polyurina. GENITOURINARY: Denies burning, hematuria or urgency with micturation. HEMATOLOGIC: +history of anemia no bleeding. PHYSICAL EXAMINATION Blood pressure 119/77, heart rate 96, afebrile, oxygen saturation is 94% on 2 L nasal cannula CONSTITUTIONAL: Appears short of breath, no apparent distress HEENT: Head is normocephalic. Pupils are equal, round. Sclerae anicteric. Mucous membranes of the mouth are moist. mild JVD. No carotid bruit. CHEST EXAMINATION: Lungs with diffuse crackles bilaterally to auscultation. No chest wall tenderness is noted on palpation or with deep breathing. HEART EXAMINATION: Regular rate and rhythm. S1, S2 heard. Systolic ejection murmur noted. ABDOMEN: Soft, nontender. Positive bowel sounds. EXTREMITIES: 2+ peripheral pulses, 4+ bilateral lower extremity edema up to patient's thighs NEUROLOGIC EXAMINATION: Patient is awake, alert and oriented x3. ASSESSMENT Acute on chronic heart failure exacerbation with preserved EF Chest pain, atypical, resolved. Elevated troponin, unable to rule out acute ischemic event at this time Acute Kidney Injury Pancreatic cancer currently on chemo Type 2 Diabetes Hypertension Hyperlipidemia Osteroarthritis Chronic back pain Leukocytosis PLAN Repeat limited Echo We will treat patient medically at this time due to acute kidney injury, CHF and pancreatic cancer Start aspirin, statin, beta carolina IV Lasix 40mg BID Monitor I/Os, daily weights, renal function and electrolytes Hematology/Oncology consulted, plan for CT angio chest Further recommendations based on clinical course Nurse Practitioner note has been reviewed, I agree with a documented findings and plan of care. Patient was seen and examined. Past Medical History Past Medical History: Cancer, GERD/Reflux, Hyperlipidemia, Hypertension, Musculoskeletal Disorder, Osteoarthritis (OA) Additional Past Medical History / Comment(s): Osteoporosis, lower Back Pain, Sciatica. TOLD YEARS AGO SHE HAD HEART MURMUR- NO TX, HX ACUTE BRONCHITIS(SMOKER), August 2020 pancreatic cancer. Current head tremor. Feet, ankles and legs swelling History of Any Multi-Drug Resistant Organisms: None Reported Past Surgical History: Orthopedic Surgery, Tubal Ligation Additional Past Surgical History / Comment(s): 2 pins in right hip-dislocated 1975. Past Anesthesia/Blood Transfusion Reactions: No Reported Reaction Past Psychological History: Anxiety, Depression Smoking Status: Current every day smoker Past Alcohol Use History: None Reported Additional Past Alcohol Use History / Comment(s): Started smoking at age 17(1971), now smokes <1 ppd. Quit drinking August 2020, had been drinking 3-4 beers daily. Past Drug Use History: None Reported Additional Drug Use History / Comment(s): Quit drinking 6/19/21 was drinking 3-4 beers a day - Past Family History Mother Family Medical History: Liver Disease Father Family Medical History: Cancer Additional Family Medical History / Comment(s): Lung or liver cancer. Medications and Allergies Home Medications Medication Instructions Recorded Confirmed Type Docusate [Colace] 200 mg PO DAILY #30 cap 01/06/21 03/18/21 Rx Gabapentin [Neurontin] 300 mg PO BID 02/08/21 03/18/21 History Potassium Chloride ER [K-Dur 10] 10 meq PO BID 02/08/21 03/18/21 History traMADol HCL 50 mg PO Q6H PRN 02/08/21 03/18/21 History Lactulose 20 gm PO DAILY 4 Days #120 ml 02/12/21 03/18/21 Rx Magnesium Oxide [Mag-Ox] 400 mg PO BID 30 Days #60 tab 02/12/21 03/18/21 Rx Pantoprazole Sodium [Protonix] 40 mg PO DAILY #30 tab 02/12/21 03/18/21 Rx Folic Acid 1 mg PO DAILY #30 tab 02/21/21 03/18/21 Rx Furosemide [Lasix] 40 mg PO BID #60 tablet 02/21/21 03/18/21 Rx Ondansetron HCl [Zofran] 4 mg PO Q6H PRN 03/18/21 03/18/21 History lisinopriL 40 mg PO DAILY 03/18/21 03/18/21 History Allergies Allergy/AdvReac Type Severity Reaction Status Date / Time amylase [From Zenpep] AdvReac stomach Verified 03/18/21 18:52 pain erythromycin base AdvReac Nausea Verified 03/18/21 18:52 [Erythromycin Base] gabapentin AdvReac Hallucinati Verified 03/18/21 18:52 ons lipase [From Zenpep] AdvReac stomach Verified 03/18/21 18:52 pain protease [From Zenpep] AdvReac stomach Verified 03/18/21 18:52 pain Physical Exam Vitals: Vital Signs Temp Pulse Pulse Resp BP BP Pulse Ox 03/19/21 08:00 90 03/19/21 04:00 97.5 F L 90 18 123/84 97 03/19/21 02:00 95 18 03/18/21 21:45 97.3 F L 95 18 93/63 98 03/18/21 21:10 90 18 103/66 03/18/21 20:32 107 H 18 97 03/18/21 19:32 103 H 18 109/67 03/18/21 18:47 97.7 F 106 H 18 101/76 96 Intake and Output 03/18/21 03/19/21 03/19/21 22:59 06:59 14:59 Other: # Voids 0 Weight 49.442 kg 52.4 kg Results 03/18/21 19:26 03/18/21 19:26 Cardiac Enzymes 03/18/21 03/18/21 03/19/21 Range/Units 19:26 19:26 05:08 AST 25 (14-36) U/L Troponin I 0.145 H* 0.143 H* (0.000-0.034) ng/mL Coagulation 03/18/21 Range/Units 19:26 PT 13.9 H (9.0-12.0) sec APTT 32.6 H (22.0-30.0) sec CBC 03/18/21 Range/Units 19:26 WBC 21.5 H (3.8-10.6) k/uL RBC 3.01 L (3.80-5.40) m/uL Hgb 9.2 L (11.4-16.0) gm/dL Hct 29.1 L (34.0-46.0) % Plt Count 103 L D (150-450) k/uL Comprehensive Metabolic Panel 03/18/21 Range/Units 19:26 Sodium 133 L (137-145) mmol/L Potassium 4.2 (3.5-5.1) mmol/L Chloride 110 H (98-107) mmol/L Carbon Dioxide 15 L (22-30) mmol/L BUN 26 H (7-17) mg/dL Creatinine 1.49 H (0.52-1.04) mg/dL Glucose 108 H (74-99) mg/dL Calcium 7.1 L (8.4-10.2) mg/dL AST 25 (14-36) U/L ALT 16 (4-34) U/L Alkaline Phosphatase 374 H (38-126) U/L Total Protein 4.3 L (6.3-8.2) g/dL Albumin 1.5 L (3.5-5.0) g/dL Intake and Output 03/18/21 03/19/21 03/19/21 22:59 06:59 14:59 Other: # Voids 0 Weight 49.442 kg 52.4 kg 03/18/21 19:26 03/18/21 19:26
[2021-03-19] MEDS: METOPROLOL TARTRATE 25 MG TAB PO SCH (20:49)
--- NOTE | 2021-03-19 22:52 | P.HPIM ---
History of Present Illness H&P Date: 03/19/21 Chief Complaint: Abdominal pain and shortness of breath Patient is a 66-year-old female with a known history of pancreatic cancer without evidence of metastatic disease in the recent imaging, status post second cycle of chemotherapy on March 07, 2021, hypertension, hyperlipidemia, osteoarthritis, GERD, lower back pain and sciatica, anxiety/depression and currently everyday smoker presents to ER with complaints of abdominal pain and also shortness of breath. Patient ran out of her pain medications. She does take gabapentin and tramadol at home. Patient is also complaining of shortness of breath. Denies any complaints of cough or sputum production. No fever no chills. No nausea vomiting or diarrhea. Denies any chest pain. Patient states that she has chronic leg swelling and slightly increasing recently. She does take Lasix 40 mg twice daily. Patient was discharged from the hospital on 02/21/2021. She does admit to hospital due to hypoxic respiratory failure and possible pneumonia was considered and cultures have been negative. She was discharged home with oral antibiotics and was saturating above 92% on room air at that time. She was given morphine long-acting 15 mg twice daily with good pain control. Chest x-ray showed no acute cardiopulmonary process. EKG showed sinus rhythm with nonspecific ST-T wave abnormalities. Laboratory data showed WBC 21.5 hemoglobin 9.2 and platelets 103 INR 1.4 Sodium 133 potassium 4.2 chloride 110 bicarb is 15 BUN 26 and creatinine 1.49 AST 25 ALT 16 alk phos 374, bili 0.7 Troponin 0 0.145, 0.14 creatinine 0.140 proBNP 7990 and albumin 1.5 Patient was tachycardic on admission. Review of Systems Constitutional: Patient denies any fever or chills . Patient does have generalized weakness.. Abdomen: Patient does complain of abdominal pain. No nausea vomiting or diarrhea. Cardiovascular: Patient does have shortness of breath. No complaints of chest pain. Increase leg swelling.. Respiratory: patient denied any cough or sputum production. No shortness of breath Neurologic: Patient denied any numbness or tingling headache. Musculoskeletal: Patient denies any complaints of joint swelling or deformity. Skin: Negative Psychiatric: Negative Endocrine: No heat or cold intolerance. No recent weight gain. Genitourinary: No dysuria or hematuria. All other 14 point ROS negative except the above Past Medical History Past Medical History: Cancer, GERD/Reflux, Hyperlipidemia, Hypertension, Musculoskeletal Disorder, Osteoarthritis (OA) Additional Past Medical History / Comment(s): Osteoporosis, lower Back Pain, Sciatica. TOLD YEARS AGO SHE HAD HEART MURMUR- NO TX, HX ACUTE BRONCHITIS(SMOKER), August 2020 pancreatic cancer. Current head tremor. Feet, ankles and legs swelling History of Any Multi-Drug Resistant Organisms: None Reported Past Surgical History: Orthopedic Surgery, Tubal Ligation Additional Past Surgical History / Comment(s): 2 pins in right hip-dislocated 1975. Past Anesthesia/Blood Transfusion Reactions: No Reported Reaction Past Psychological History: Anxiety, Depression Smoking Status: Current every day smoker Past Alcohol Use History: None Reported Additional Past Alcohol Use History / Comment(s): Started smoking at age 17(1971), now smokes <1 ppd. Quit drinking August 2020, had been drinking 3-4 beers daily. Past Drug Use History: None Reported Additional Drug Use History / Comment(s): Quit drinking 09/07/20 was drinking 3-4 beers a day - Past Family History Mother Family Medical History: Liver Disease Father Family Medical History: Cancer Additional Family Medical History / Comment(s): Lung or liver cancer. Medications and Allergies Home Medications Medication Instructions Recorded Confirmed Type Docusate [Colace] 200 mg PO DAILY #30 cap 01/06/21 03/18/21 Rx Gabapentin [Neurontin] 300 mg PO BID 02/08/21 03/18/21 History Potassium Chloride ER [K-Dur 10] 10 meq PO BID 02/08/21 03/18/21 History traMADol HCL 50 mg PO Q6H PRN 02/08/21 03/18/21 History Lactulose 20 gm PO DAILY 4 Days #120 ml 02/12/21 03/18/21 Rx Magnesium Oxide [Mag-Ox] 400 mg PO BID 30 Days #60 tab 02/12/21 03/18/21 Rx Pantoprazole Sodium [Protonix] 40 mg PO DAILY #30 tab 02/12/21 03/18/21 Rx Folic Acid 1 mg PO DAILY #30 tab 02/21/21 03/18/21 Rx Furosemide [Lasix] 40 mg PO BID #60 tablet 02/21/21 03/18/21 Rx Ondansetron HCl [Zofran] 4 mg PO Q6H PRN 03/18/21 03/18/21 History lisinopriL 40 mg PO DAILY 03/18/21 03/18/21 History Allergies Allergy/AdvReac Type Severity Reaction Status Date / Time amylase [From Zenpep] AdvReac stomach Verified 03/18/21 18:52 pain erythromycin base AdvReac Nausea Verified 03/18/21 18:52 [Erythromycin Base] gabapentin AdvReac Hallucinati Verified 03/18/21 18:52 ons lipase [From Zenpep] AdvReac stomach Verified 03/18/21 18:52 pain protease [From Zenpep] AdvReac stomach Verified 03/18/21 18:52 pain Physical Exam Vitals: Vital Signs Temp Pulse Pulse Resp BP BP Pulse Ox 03/19/21 08:00 97.4 F L 94 18 126/61 03/19/21 04:00 97.5 F L 90 18 123/84 97 03/19/21 02:00 95 18 03/18/21 21:45 97.3 F L 95 18 93/63 98 03/18/21 21:10 90 18 103/66 03/18/21 20:32 107 H 18 97 03/18/21 19:32 103 H 18 109/67 03/18/21 18:47 97.7 F 106 H 18 101/76 96 Intake and Output 03/18/21 03/19/21 03/19/21 22:59 06:59 14:59 Other: # Voids 0 Weight 49.442 kg 52.4 kg 52.4 kg PHYSICAL EXAMINATION: Patient is lying in the bed comfortably, no acute distress, awake alert and oriented.. HEENT: Normocephalic. Neck is supple. Pupils reactive. Nostrils clear. Oral cavity is moist. Neck reveals no JVD, carotid bruits, or thyromegaly. CHEST EXAMINATION: Trachea is central. Symmetrical expansion. Lung mccrary clear to auscultation and percussion. CARDIAC: Normal S1, S2 with no gallops. No murmurs ABDOMEN: Soft. Mild epigastric abdominal tenderness. Bowel sounds normal. No organomegaly. No abdominal bruits. Extremities:Bilateral 2+ pedal edema. . No clubbing or cyanosis Neurologically awake, alert, oriented x3 with well-coordinated movements. No focal deficits noted Skin: No rash or skin lesions. Psychiatric: Cooperative. Nonsuicidal Musculoskeletal: No joint swelling or deformity. Normal range of motion. Results CBC & Chem 7: 03/18/21 19:26 03/18/21 19:26 Labs: Abnormal Lab Results - Last 24 Hours (Table) 03/18/21 03/18/21 03/18/21 Range/Units 19:26 19: 19:26 WBC 21.5 H (3.8-10.6) k/uL RBC 3.01 L (3.80-5.40) m/uL Hgb 9.2 L (11.4-16.0) gm/dL Hct 29.1 L (34.0-46.0) % RDW 18.0 H (11.5-15.5) % Plt Count 103 L D (150-450) k/uL Neutrophils # 19.6 H (1.3-7.7) k/uL PT 13.9 H (9.0-12.0) sec INR 1.4 H (<1.2) APTT 32.6 H (22.0-30.0) sec Sodium 133 L (137-145) mmol/L Chloride 110 H (98-107) mmol/L Carbon Dioxide 15 L (22-30) mmol/L BUN 26 H (7-17) mg/dL Creatinine 1.49 H (0.52-1.04) mg/dL Glucose 108 H (74-99) mg/dL Calcium 7.1 L (8.4-10.2) mg/dL Magnesium 1.5 L (1.6-2.3) mg/dL Alkaline Phosphatase 374 H (38-126) U/L Troponin I (0.000-0.034) ng/mL Total Protein 4.3 L (6.3-8.2) g/dL Albumin 1.5 L (3.5-5.0) g/dL 03/18/21 03/19/21 Range/Units 19:26 05:08 WBC (3.8-10.6) k/uL RBC (3.80-5.40) m/uL Hgb (11.4-16.0) gm/dL Hct (34.0-46.0) % RDW (11.5-15.5) % Plt Count (150-450) k/uL Neutrophils # (1.3-7.7) k/uL PT (9.0-12.0) sec INR (<1.2) APTT (22.0-30.0) sec Sodium (137-145) mmol/L Chloride (98-107) mmol/L Carbon Dioxide (22-30) mmol/L BUN (7-17) mg/dL Creatinine (0.52-1.04) mg/dL Glucose (74-99) mg/dL Calcium (8.4-10.2) mg/dL Magnesium (1.6-2.3) mg/dL Alkaline Phosphatase (38-126) U/L Troponin I 0.145 H* 0.143 H* (0.000-0.034) ng/mL Total Protein (6.3-8.2) g/dL Albumin (3.5-5.0) g/dL Thrombosis Risk Factor Assmnt - DVT/VTE Prophylaxis DVT/VTE Prophylaxis: Pharmacologic Prophylaxis ordered Assessment and Plan Assessment: Shortness of breath likely due to acute on chronic CHF with diastolic dysfunction. Recent echocardiogram showed ejection fraction 60 to 65%. Elevated troponin level. Possible demand mismatch SIRS without evidence of definitive source of infection. Procalcitonin level ordered and follow-up blood cultures. Pancreatic cancer without evidence of metastatic disease as per recent imaging. Status post second cycle of chemotherapy on March 07, 2021 Acute kidney injury likely prerenal Hypertension Hyperlipidemia Diabetes type 2 [id number] Hypoalbuminemia and chronic bilateral leg swelling Chronic back pain GERD Anxiety/depression and Currently everyday smoker Plan: Patient was given IV hydration in the ER. Continue with ceftriaxone and follow- up culture reports and procalcitonin level was ordered. f/u UA. Patient will be continued on IV Lasix 40 mg twice daily. Cardiology and oncology was consulted. Continue with pain medications morphine 15 mg twice daily and bowel regimen. Follow-up closely. Prognosis is guarded at this time. Time with Patient: Greater than 30
[2021-03-20] MEDS: PANTOPRAZOLE 40 MG TABLET PO SCH (05:39)
--- NOTE | 2021-03-20 08:23 | NM ---
EXAMINATION TYPE: NM pul perfusion DATE OF EXAM: 03/20/2021 COMPARISON: NONE HISTORY: Shortness of breath Following administration of 4.8 mCi Tc 99m MAA. Images obtained post injection. FINDINGS: There is homogeneous distribution radiotracer throughout the lung mccrary. IMPRESSION: Low probability for pulmonary embolism.
[2021-03-20] MEDS: HEPARIN SODIUM,PORCINE/PF 5,000 UNIT/0.5 ML SYRINGE SQ SCH ×3 (09:37→21:08)
[2021-03-20] MEDS: FUROSEMIDE 10 MG/ML 4 ML VIAL IV SCH (09:38)
[2021-03-20] MEDS: MAGNESIUM OXIDE 400 MG TAB PO SCH ×2 (09:38→21:00)
[2021-03-20] MEDS: DOCUSATE 100 MG CAP PO SCH (09:38)
[2021-03-20] MEDS: FOLIC ACID 1 MG TAB PO SCH (09:38)
[2021-03-20] MEDS: METOPROLOL TARTRATE 25 MG TAB PO SCH ×2 (09:38→20:59)
[2021-03-20] MEDS: LACTULOSE 20 GM/30 ML CUP PO SCH (09:38)
[2021-03-20] MEDS: ATORVASTATIN 40 MG TAB PO SCH (09:38)
[2021-03-20] MEDS: MORPHINE SULFATE ER 15 MG TABLET PO SCH ×2 (09:38→20:55)
[2021-03-20] MEDS: ASPIRIN 81 MG PO SCH (09:39)
[2021-03-20 09:56] LABS: Anisocytosis Slight; Basophils # (A) 0.1 k/uL (0-0.2); Basophils % (A) 0 %; Eosinophils # (A) 0.1 k/uL (0-0.7); Eosinophils % (A) 1 %; HCT 35.4 % (34.0-46.0); HGB 10.3 gm/dL (11.4-16.0); Hypochromasia Marked; Lymphocytes # (A) 1.6 k/uL (1.0-4.8); Lymphocytes % (A) 7 %; MCH 30.2 pg (25.0-35.0); MCHC 29.2 g/dL (31.0-37.0); Macrocytosis Moderate; Mean Platelet Volume 15.6; Monocytes # (A) 0.5 k/uL (0-1.0); Monocytes % (A) 2 %; Neutrophils # (A) 18.9 k/uL (1.3-7.7); Neutrophils % (A) 89 %; RBC 3.43 m/uL (3.80-5.40); RDW 18.6 % (11.5-15.5); WBC 21.4 k/uL (3.8-10.6)
--- NOTE | 2021-03-20 09:56 | P.PN ---
Subjective Progress Note Date: 03/20/21 Principal diagnosis: Heart failure The patient is a pleasant 66-year-old -[place] female patient with a past medical history significant for pancreatic cancer currently on chemotherapy as well as diabetes and hypertension and dyslipidemia who presented to the hospital complaining of shortness of breath. She also was experiencing symptoms of chest discomfort which he felt is atypical. She was diagnosed with mild heart failure of unknown etiology. Echo was ordered. The patient was seen this morning. She stated that she is feeling slightly better. She does have diminished breathing sounds bilaterally but she has about 1+ pedal edema noted. Her abdomen is a slightly worse. I'm going to decrease the dose of Lasix IV from 40 mg twice a day to 20 mg twice a day. Continue monitor her kidney function and electrolytes. The echo still pending. Continue aspirin and statin and beta carolina. Objective - Vital Signs Vital signs: Vital Signs Temp 97.3 F L 03/20/21 09:37 Pulse 75 03/20/21 09:37 Resp 17 03/20/21 09:37 BP 109/72 03/20/21 09:37 Pulse Ox 98 03/20/21 09:37 Intake & Output 03/19/21 03/20/21 03/20/21 18:59 06:59 18:59 Intake Total 780 Balance 780 Weight 52.4 kg Intake: Oral 780 Other: # Voids 1 - Constitutional General appearance: Present: no acute distress - Respiratory Respiratory: bilateral: diminished - Cardiovascular Rhythm: regular Heart sounds: normal: S1, S2 - Labs CBC & Chem 7: 03/18/21 19:26 03/18/21 19:26 Labs: Abnormal Lab Results - Last 24 Hours (Table) 03/19/21 03/19/21 Range/Units 05:08 12: Troponin I 0.140 H* (0.000-0.034) ng/mL Procalcitonin 38.70 H (0.02-0.09) ng/mL Microbiology - Last 24 Hours (Table) 03/18/21 19:00 Blood Culture Gram Stain - Preliminary Blood Blood Culture - Preliminary 03/18/21 19:21 Blood Culture Gram Stain - Preliminary Blood 03/18/21 19:00 Blood Culture - Final Blood 03/18/21 19:21 Blood Culture - Final Blood Assessment and Plan Assessment: Assessment #1 mild heart failure. Etiology is unknown. Echo is pending. #2 chest discomfort atypical for angina #3 multiple comorbid conditions #4 acute on chronic renal failure Plan #1 decrease the dose of Lasix IV in view of the worsening kidney function #2 continue monitoring the kidney function and electrolytes #3 continue aspirin and statin and beta carolina #4 follow-up with the patient
[2021-03-20 10:20] LABS: Calcium 7.6 mg/dL (8.4-10.2); Potassium 4.6 mmol/L (3.5-5.1)
[2021-03-20 10:21] LABS: MCV 103.3 fL (80.0-100.0)
[2021-03-20 10:50] LABS: Platelet Count 131 k/uL (150-450)
[2021-03-20 10:51] LABS: Target Cells Present
[2021-03-20 10:52] LABS: Poikilocytosis (M) Present
--- NOTE | 2021-03-20 11:28 | P.PN ---
Subjective Progress Note Date: 03/20/21 She continues to lose weight and albumin is quite low, this is likely a factor in her prolonged INR and possible fluid shift and acute renal presentation, with mild CHF. I have initiated appetite stimulators. Pain is much better controlled now she has agreed to stay adherent to [facility]. Objective - Vital Signs Vital signs: Vital Signs Temp 97.3 F L 03/20/21 09:37 Pulse 75 03/20/21 09:37 Resp 17 03/20/21 09:37 BP 109/72 03/20/21 09:37 Pulse Ox 98 03/20/21 09:37 Intake & Output 03/19/21 03/20/21 03/20/21 18:59 06:59 18:59 Intake Total 780 Balance 780 Weight 52.4 kg Intake: Oral 780 Other: # Voids 1 - Exam Cachetic Thin Alert Heart:Tachy Abd: tender to palpate Lungs: Mild increased effort, crackes at bases Edema feet. - Labs CBC & Chem 7: 03/20/21 09:38 03/20/21 09:38 Labs: Abnormal Lab Results - Last 24 Hours (Table) 03/19/21 03/19/21 03/20/21 Range/Units 05:08 12: 09:38 WBC (3.8-10.6) k/uL RBC (3.80-5.40) m/uL Hgb (11.4-16.0) gm/dL MCV (80.0-100.0) fL MCHC (31.0-37.0) g/dL RDW (11.5-15.5) % Plt Count (150-450) k/uL Neutrophils # (1.3-7.7) k/uL Sodium 136 L (137-145) mmol/L Chloride 112 H (98-107) mmol/L Carbon Dioxide 19 L (22-30) mmol/L BUN 28 H (7-17) mg/dL Creatinine 1.41 H (0.52-1.04) mg/dL Glucose 129 H (74-99) mg/dL Calcium 7.6 L (8.4-10.2) mg/dL Troponin I 0.140 H* (0.000-0.034) ng/mL Procalcitonin 38.70 H (0.02-0.09) ng/mL 03/20/21 Range/Units 09:38 WBC 21.4 H (3.8-10.6) k/uL RBC 3.43 L (3.80-5.40) m/uL Hgb 10.3 L (11.4-16.0) gm/dL MCV 103.3 H D (80.0-100.0) fL MCHC 29.2 L (31.0-37.0) g/dL RDW 18.6 H (11.5-15.5) % Plt Count 131 L (150-450) k/uL Neutrophils # 18.9 H (1.3-7.7) k/uL Sodium (137-145) mmol/L Chloride (98-107) mmol/L Carbon Dioxide (22-30) mmol/L BUN (7-17) mg/dL Creatinine (0.52-1.04) mg/dL Glucose (74-99) mg/dL Calcium (8.4-10.2) mg/dL Troponin I (0.000-0.034) ng/mL Procalcitonin (0.02-0.09) ng/mL Microbiology - Last 24 Hours (Table) 03/18/21 19:00 Blood Culture Gram Stain - Preliminary Blood Blood Culture - Preliminary 03/18/21 19:21 Blood Culture Gram Stain - Preliminary Blood 03/18/21 19:00 Blood Culture - Final Blood 03/18/21 19:21 Blood Culture - Final Blood Assessment and Plan (1) Pancreatic cancer Current Visit: Yes Status: Acute Code(s): C25.9 - MALIGNANT NEOPLASM OF PANCREAS, UNSPECIFIED SNOMED Code(s): 098584878 (2) Acute renal insufficiency Current Visit: Yes Status: Acute Code(s): N28.9 - DISORDER OF KIDNEY AND URETER, UNSPECIFIED SNOMED Code(s): 861592148 (3) Coagulopathy Current Visit: Yes Status: Acute Code(s): D68.9 - COAGULATION DEFECT, UNSPECIFIED SNOMED Code(s): 25475146 (4) Shortness of breath Current Visit: Yes Status: Acute Priority: High Code(s): R06.02 - SHORTNESS OF BREATH SNOMED Code(s): 142216531 (5) Malnutrition Narrative/Plan: Moderate, Evidenced decreased albumin Dieticien Re-education Appetite stimulators initiated, benefit outway risk of megace - she is on VTE prophylaxis Current Visit: No Status: Acute Code(s): E46 - UNSPECIFIED PROTEIN-CALORIE MALNUTRITION SNOMED Code(s): 88746081
--- NOTE | 2021-03-20 15:13 | CDI ---
Documentation Clarification Form Date: 03/20/2021 03:04:47 PM From: Nannette MunguiaSHABNAM, CCDS Admit Date: 03/18/2021 08:45:00 PM Patient Name: Nannette Morel Visit Number: [id number] Discharge Date: ATTENTION: The Clinical Documentation Specialists (CDI) and [facility] Coding Staff appreciate your assistance in clarifying documentation. Please respond to the clarification below the line at the bottom and electronically sign. The CDI & [facility] Coding staff will review the response and follow-up if needed. Please note: Queries are made part of the Legal Health Record. If you have any questions, please contact the author of this message via ITS. Dr. Corbin Smith: Acute On Chronic Renal Failure is documented in the 03/20 Cardiology Progress Note without further specificity of the CKD. Additional clarification regarding the stage of CKD is requested. History/Risk Factors per the 03/19 H/P: Pancreatic Cancer in chemotherapy, Hypertension, Hyperlipidemia, NIDDM II, Chronic back pain, Chronic bilateral leg swelling, GERD, Anxiety, Depression, current smoker. Clinical Indicators: Presented to the ED on 03/18 via EMS with SOB. Has Pancreatic Cancer, ran out of her medicine yesterday, now complaining of SOB. Admit with Elevated Troponins, Hypomagnesemia, Leukocytosis, Renal Insufficiency and Pancreatic Cancer. 03/18 LAB: BUN: 26. 03/20: 28 Creatinine: 1.49. 03/20: 1.41 GFR 42. 03/20: 45 Historical GFR: 07/08/2015: >60 Treatment 03/18: Daily weight, Blood glucose monitoring, I&Os, Heart Healthy Diet, O2 2Lnc, IV Toradol, IV Mag Sulf/Dextrose, IV Rocephin, IV Na Cl 1,000 mls @ 75 mls/hr q13H, IV Lasix, IV Zofran. Nephrology is not consulted. Please clarify the stage of the CKD, if known: [ ] CKD Stage 2 (GFR 60-89) [ ] CKD Stage 3 (GFR 30-59) [ ] CKD Stage 3a (GFR 45-59) [ ] CKD Stage 3b (GFR 30-44) [ ] Other, please specify [ ] Unable to determine (Template Last revised: April 2020) aki MTDD
--- NOTE | 2021-03-20 15:24 | CDI ---
Documentation Clarification Form Date: 03/20/2021 03:15:00 PM From: Nannette MunguiaSHABNAM, CCDS Admit Date: 03/18/2021 08:45:00 PM Patient Name: Nannette Morel Visit Number: [id number] Discharge Date: ATTENTION: The Clinical Documentation Specialists (CDI) and [facility] Coding Staff appreciate your assistance in clarifying documentation. Please respond to the clarification below the line at the bottom and electronically sign. The CDI & [facility] Coding staff will review the response and follow-up if needed. Please note: Queries are made part of the Legal Health Record. If you have any questions, please contact the author of this message via ITS. Dr. Curt Zamora: Per the 03/19 Cardiology Consult: Elevated Troponin, unable to rule out acute ischemic event at this time. Additional clarification regarding the acute ischemic event is requested. History/Risk Factors per the 03/19 H/P: Pancreatic Cancer in chemotherapy, Hypertension, Hyperlipidemia, NIDDM II, Chronic back pain, Chronic bilateral leg swelling, GERD, Anxiety, Depression, current smoker. Clinical Indicators: Presented to the ED on 03/18 via EMS with SOB. Has Pancreatic Cancer, ran out of her medicine yesterday, now complaining of SOB. Admit with Elevated Troponins, Hypomagnesemia, Leukocytosis, Renal Insufficiency and Pancreatic Cancer. 03/18 VS: T 97.7, P 106, R 18 (sob, cough), BP 101/76, PO 96 RA - 2Lnc, BMI: 17.4 03/18 LAB: WBC 21.5, Hgb 9.2, Hct 29.1, Pl Ct 103, Neut 19.6; PT 13.9, INR 1.4, APTT 32.6; Na 133, Cl 110, CO2 15, BUN 26, Creatinine 1.49, Glucose 108, Calcium 7.1, Magnesium 1.5, Ak Phos 374, Troponin 0.145, 0.143, 0.140; BNP 7990, total Protein 4.3, Albumin 1.5. 03/18 CXR: No acute cardiopulmonary disease/process. 03/18 EKG: R 97 Sinus rhythm with marked sinus arrhythmia with occasional PVCs, ST & T wave abnormality, consider anterior ischemia. Treatment 03/18: Daily weight, Blood glucose monitoring, I&Os, Heart Healthy Diet, O2 2Lnc, IV Toradol, IV Mag Sulf/Dextrose, IV Rocephin, IV Na Cl 1,000 mls @ 75 mls/hr q13H, IV Lasix, IV Zofran. Cardiology orders: Start Aspirin, Statin, Beta Massimo; IV Lasix 40 mg BID, Monitor I&O, daily weights, renal function and electrolytes. Please clarify the following: [ ] NSTEMI (type 1) [ ] Type II MT due to (please specify etiology): [ ] Other, please specify: [ ] Unable to determine (Template Last Revised: May 2020) MTDD
[2021-03-20] MEDS: SODIUM CHLORIDE 0.9% 250 ML IV SCH ×4 (17:30→19:12)
--- NOTE | 2021-03-20 18:54 | XR ---
EXAMINATION TYPE: XR chest 1V portable DATE OF EXAM: 03/20/2021 Comparison: 03/18/2021 Clinical History: 66-year-old female shortness of breath Findings: Right anterior chest wall injection port. Catheter tip at the mid SVC level. Heart normal size. Aorta and pulmonary vasculature within normal limits. Mild hyperinflation. There is some strandy left basi lar atelectasis. No consolidation or pleural effusion seen. Impression: Hyperinflation may relate to depth of inspiration or underlying emphysema. Clinically correlate. No a cute process seen.
[2021-03-20] MEDS ORDERED: SODIUM CHLORIDE 0.9% 500 ML 250 ML IV ONE (20:39)
[2021-03-20] MEDS: FUROSEMIDE 10 MG/ML 2 ML VIAL IV SCH (20:55)
[2021-03-20] MEDS: IPRATROPIUM-ALBUTEROL 3 ML NEB INHALATION SCH (21:44)
[2021-03-21 05:37] LABS: Glucose,Whole Blood 100 mg/dL (75-99)
[2021-03-21] MEDS: MEGESTROL 400 MG/10 ML CUP PO SCH (06:26)
[2021-03-21] MEDS: PANTOPRAZOLE 40 MG TABLET PO SCH (06:26)
[2021-03-21] MEDS: IPRATROPIUM-ALBUTEROL 3 ML NEB INHALATION SCH ×3 (07:50→19:56)
[2021-03-21 09:33] LABS: Anisocytosis Slight; Basophils # (A) 0.1 k/uL (0-0.2); Basophils % (A) 0 %; Eosinophils # (A) 0.1 k/uL (0-0.7); Eosinophils % (A) 0 %; HCT 36.6 % (34.0-46.0); HGB 9.7 gm/dL (11.4-16.0); Hypochromasia Marked; Lymphocytes # (A) 1.3 k/uL (1.0-4.8); Lymphocytes % (A) 7 %; MCH 29.7 pg (25.0-35.0); MCHC 26.4 g/dL (31.0-37.0); Macrocytosis Marked; Mean Platelet Volume 12.7; Monocytes # (A) 0.4 k/uL (0-1.0); Monocytes % (A) 2 %; Neutrophils # (A) 15.6 k/uL (1.3-7.7); Neutrophils % (A) 88 %; Platelet Count 116 k/uL (150-450); RBC 3.25 m/uL (3.80-5.40); RDW 18.9 % (11.5-15.5); WBC 17.7 k/uL (3.8-10.6)
[2021-03-21 09:34] LABS: MCV 112.7 fL (80.0-100.0)
[2021-03-21 09:47] LABS: Calcium 7.4 mg/dL (8.4-10.2); Potassium 4.1 mmol/L (3.5-5.1)
[2021-03-21] MEDS: LACTULOSE 20 GM/30 ML CUP PO SCH (10:00)
[2021-03-21] MEDS: HEPARIN SODIUM,PORCINE/PF 5,000 UNIT/0.5 ML SYRINGE SQ SCH ×3 (10:00→20:20)
[2021-03-21] MEDS: DOCUSATE 100 MG CAP PO SCH (10:01)
[2021-03-21] MEDS: METOPROLOL TARTRATE 25 MG TAB PO SCH ×2 (10:01→22:12)
[2021-03-21] MEDS: FOLIC ACID 1 MG TAB PO SCH (10:01)
[2021-03-21] MEDS: ATORVASTATIN 40 MG TAB PO SCH (10:01)
[2021-03-21] MEDS: FUROSEMIDE 10 MG/ML 2 ML VIAL IV SCH ×2 (10:01→20:59)
[2021-03-21] MEDS: MAGNESIUM OXIDE 400 MG TAB PO SCH ×2 (10:01→20:08)
[2021-03-21] MEDS: MORPHINE SULFATE ER 15 MG TABLET PO SCH ×2 (10:01→20:08)
[2021-03-21] MEDS: ASPIRIN 81 MG PO SCH (10:01)
[2021-03-21 11:15] VITALS: BMI 17.6
[2021-03-21 11:20] LABS: Target Cells Present
[2021-03-21 11:21] LABS: Poikilocytosis (M) Present
--- NOTE | 2021-03-21 13:34 | P.PN ---
Subjective Progress Note Date: 03/21/21 Worsening renal Function Objective - Vital Signs Vital signs: Vital Signs Temp 97.9 F 03/21/21 04:00 Pulse 72 03/21/21 12:34 Resp 16 03/21/21 12:34 BP 120/75 03/21/21 11:12 Pulse Ox 94 L 03/21/21 00:00 Intake & Output 03/20/21 03/21/21 03/21/21 18:59 06:59 18:59 Intake Total 0 10 Output Total 564 150 Balance -564 -140 Weight 50.5 kg 51 kg 51 kg Intake: IV 10 Invasive Line 1 10 Oral 0 Output: Urine 200 150 Post Void Residual 364 Other: Voiding Method Indwelling Catheter Indwelling Catheter # Voids 0 # Bowel Movements 1 - Exam Cachetic Thin Alert Heart:Tachy Abd: tender to palpate Lungs: Mild increased effort, crackes at bases Edema feet. - Labs CBC & Chem 7: 03/21/21 08:54 03/21/21 08:54 Labs: Abnormal Lab Results - Last 24 Hours (Table) 03/21/21 03/21/21 03/21/21 Range/Units 05:20 08:54 08:54 WBC 17.7 H (3.8-10.6) k/uL RBC 3.25 L (3.80-5.40) m/uL Hgb 9.7 L (11.4-16.0) gm/dL MCV 112.7 H D (80.0-100.0) fL MCHC 26.4 L (31.0-37.0) g/dL RDW 18.9 H (11.5-15.5) % Plt Count 116 L (150-450) k/uL Neutrophils # 15.6 H (1.3-7.7) k/uL Macrocytosis Marked A Chloride 115 H (98-107) mmol/L Carbon Dioxide 13 L (22-30) mmol/L BUN 27 H (7-17) mg/dL Creatinine 1.59 H (0.52-1.04) mg/dL POC Glucose (mg/dL) 100 H (75-99) mg/dL Calcium 7.4 L (8.4-10.2) mg/dL Microbiology - Last 24 Hours (Table) 03/18/21 19:21 Blood Culture Gram Stain - Final Blood Blood Culture - Final Klebsiella pneumoniae 03/18/21 19:00 Blood Culture Gram Stain - Final Blood Blood Culture - Final Klebsiella pneumoniae Assessment and Plan (1) Pancreatic cancer Current Visit: Yes Status: Acute Code(s): C25.9 - MALIGNANT NEOPLASM OF PANCREAS, UNSPECIFIED SNOMED Code(s): 488202068 (2) Acute renal insufficiency Current Visit: Yes Status: Acute Code(s): N28.9 - DISORDER OF KIDNEY AND URETER, UNSPECIFIED SNOMED Code(s): 755190400 (3) Coagulopathy Current Visit: Yes Status: Acute Code(s): D68.9 - COAGULATION DEFECT, UNSPECIFIED SNOMED Code(s): 20252402 (4) Shortness of breath Current Visit: Yes Status: Acute Priority: High Code(s): R06.02 - SHORTNESS OF BREATH SNOMED Code(s): 025504399 (5) Malnutrition Narrative/Plan: Moderate, Evidenced decreased albumin Dieticien Re-education Appetite stimulators initiated, benefit outway risk of megace - she is on VTE prophylaxis Current Visit: No Status: Acute Code(s): E46 - UNSPECIFIED PROTEIN-CALORIE MALNUTRITION SNOMED Code(s): 29302274 Plan: Failure to Thrive Disorientation Most recent evaluation of cancer was stable. although unable to continue on treatment on time due recurrent hospitalizations for pain and malnutrition. COntinue supportive care per primary team
--- NOTE | 2021-03-21 13:45 | P.PN ---
Subjective This is a pleasant 65 years old -[place] female with past medical history of pancreatic cancer currently on chemotherapy states she is on her 6th treatment she follows with Dr. Muller, diabetes mellitus, hypertension, hyperlipidemia, osteoarthritis, chronic back pain with sciatica. 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 We are consulted for elevated troponin. She presents to the emergency department with worsening shortness of breath and lower extremity edema. She also had an episode of chest pain last night. Located on the right side of her chest, non radiating non-exertional. No specific aggravating or alleviating factors. She denies associated nausea, diaphoresis, lightheadedness or dizziness. She did have some episodes of diarrhea. She does have shortness of breath and some symptoms of orthopnea. She only sleeps with 1 pillow. No history of CAD, AL, Stroke. She states Dr. Muller recently started her on PO Lasix last week, but she has not picked up the prescription yet. 03/21 Patient seen and examined. Patient's albumin is severely decreased and appears to have severe protein calorie malnutrition with likely component of third spacing. She has been receiving IV Lasix and states that her breathing has somewhat improved. REVIEW OF SYSTEMS At the time of my exam: CONSTITUTIONAL: Denies fever or chills. CARDIOVASCULAR: Denies chest pain, +shortness of breath, +orthopnea, +LE edema Denies PND or palpitations. RESPIRATORY: Denies cough. GASTROINTESTINAL: Denies abdominal pain, diarrhea, constipation, nausea or vomit ing. MUSCULOSKELETAL: Denies myalgias. NEUROLOGIC: Denies numbness, tingling, headacbe or weakness. ENDOCRINE: Denies fatigue, weight change, polydipsia or polyurina. GENITOURINARY: Denies burning, hematuria or urgency with micturation. HEMATOLOGIC: +history of anemia no bleeding. PHYSICAL EXAMINATION Viitals reviewed CONSTITUTIONAL: Appears short of breath, no apparent distress HEENT: Head is normocephalic. Pupils are equal, round. Sclerae anicteric. Mucous membranes of the mouth are moist. mild JVD. No carotid bruit. CHEST EXAMINATION: Lungs with diffuse crackles bilaterally to auscultation. No chest wall tenderness is noted on palpation or with deep breathing. HEART EXAMINATION: Regular rate and rhythm. S1, S2 heard. Systolic ejection murmur noted. ABDOMEN: Soft, nontender. Positive bowel sounds. EXTREMITIES: 2+ peripheral pulses, 2+ bilateral lower extremity edema up to patient's thighs NEUROLOGIC EXAMINATION: Patient is awake, alert and oriented x3. ASSESSMENT Acute on chronic heart failure exacerbation with preserved EF Chest pain, atypical, resolved. Elevated troponin, suspect type II mechanism with preserved ejection fraction Acute Kidney Injury Pancreatic cancer currently on chemo Type 2 Diabetes Hypertension Hyperlipidemia Osteroarthritis Chronic back pain Leukocytosis Severe protein calorie malnutrition PLAN Echocardiogram performed 03/19 however apparently was not transferred over into the medical chart which shows preserved EF 55-60% with a small generalized pericardial effusion as well as a large pleural effusion with mild LVH. Do not suspect acute coronary syndrome and appears elevated troponin related to CKD and possible protein calorie malnutrition. Suspect the majority of this is related to third spacing from decreased intravascular oncotic pressures from severe protein calorie malnutrition. Continue with diuresis as able as appears to be somewhat improving however attempt to increase nutrition. Prognosis guarded. Continue supportive care. Objective - Vital Signs Vital signs: Vital Signs Temp 97.9 F 03/21/21 04:00 Pulse 72 03/21/21 12:34 Resp 16 03/21/21 12:34 BP 120/75 03/21/21 11:12 Pulse Ox 94 L 03/21/21 00:00 Intake & Output 03/20/21 03/21/21 03/21/21 18:59 06:59 18:59 Intake Total 0 10 Output Total 564 150 Balance -564 -140 Weight 50.5 kg 51 kg 51 kg Intake: IV 10 Invasive Line 1 10 Oral 0 Output: Urine 200 150 Post Void Residual 364 Other: Voiding Method Indwelling Catheter Indwelling Catheter # Voids 0 # Bowel Movements 1 - Labs CBC & Chem 7: 03/21/21 08:54 03/21/21 08:54 Labs: Abnormal Lab Results - Last 24 Hours (Table) 03/21/21 03/21/21 03/21/21 Range/Units 05:20 08:54 08:54 WBC 17.7 H (3.8-10.6) k/uL RBC 3.25 L (3.80-5.40) m/uL Hgb 9.7 L (11.4-16.0) gm/dL MCV 112.7 H D (80.0-100.0) fL MCHC 26.4 L (31.0-37.0) g/dL RDW 18.9 H (11.5-15.5) % Plt Count 116 L (150-450) k/uL Neutrophils # 15.6 H (1.3-7.7) k/uL Macrocytosis Marked A Chloride 115 H (98-107) mmol/L Carbon Dioxide 13 L (22-30) mmol/L BUN 27 H (7-17) mg/dL Creatinine 1.59 H (0.52-1.04) mg/dL POC Glucose (mg/dL) 100 H (75-99) mg/dL Calcium 7.4 L (8.4-10.2) mg/dL Microbiology - Last 24 Hours (Table) 03/18/21 19:21 Blood Culture Gram Stain - Final Blood Blood Culture - Final Klebsiella pneumoniae 03/18/21 19:00 Blood Culture Gram Stain - Final Blood Blood Culture - Final Klebsiella pneumoniae
[2021-03-21 22:40] LABS: INR 1.2 (<1.2); Prothrombin Time 12.2 sec (9.0-12.0)
[2021-03-22] MEDS: PANTOPRAZOLE 40 MG TABLET PO SCH (06:51)
[2021-03-22] MEDS: IPRATROPIUM-ALBUTEROL 3 ML NEB INHALATION SCH ×3 (09:34→20:38)
[2021-03-22] MEDS: ASPIRIN 81 MG PO SCH (10:39)
[2021-03-22] MEDS: ATORVASTATIN 40 MG TAB PO SCH (10:39)
[2021-03-22] MEDS: MORPHINE SULFATE ER 15 MG TABLET PO SCH ×2 (10:40→21:36)
[2021-03-22] MEDS: DOCUSATE 100 MG CAP PO SCH (10:40)
[2021-03-22] MEDS: MAGNESIUM OXIDE 400 MG TAB PO SCH ×2 (10:40→21:45)
[2021-03-22] MEDS: FUROSEMIDE 10 MG/ML 2 ML VIAL IV SCH ×2 (10:41→21:35)
[2021-03-22] MEDS: FOLIC ACID 1 MG TAB PO SCH (10:41)
[2021-03-22] MEDS: HEPARIN SODIUM,PORCINE/PF 5,000 UNIT/0.5 ML SYRINGE SQ SCH ×2 (10:41→21:45)
[2021-03-22] MEDS: LACTULOSE 20 GM/30 ML CUP PO SCH (10:41)
--- NOTE | 2021-03-22 10:54 | P.NPCON ---
History of Present Illness - Reason for Consult acute renal failure - History of Present Illness Reason for consultation: Acute kidney injury History of present illness: Patient is a 66-year-old female seen in renal consultation for acute kidney injury. Creatinine on admission was 1.49 and is 1.59 today. Patient is currently resting in bed and is not a reliable historian. Patient has history of pancreatic cancer and it seems she ran out of pain medication at home and was brought to the hospital. She does of edema in lower extremity. She is maintained on IV Lasix 20 mg twice daily. Urine output documented as 564 mL in the last 24 hours. Blood pressure stable. No fever. Patient's blood cultures positive for Klebsiella and she is on IV antibiotics. She tested negative for coronavirus. No history of diabetes. She was on lisinopril outpatient which is currently held. Baseline creatinine is near 1. I don't see any nonsteroidals and her home medication list. Vital signs are stable. HEENT: Head exam is unremarkable. LUNGS: Breath sounds decreased. HEART: Rate and Rhythm are regular. ABDOMEN: Soft, no distention. EXTREMITITES: 2+ edema. Past Medical History Past Medical History: Cancer, GERD/Reflux, Hyperlipidemia, Hypertension, Musculoskeletal Disorder, Osteoarthritis (OA) Additional Past Medical History / Comment(s): Osteoporosis, lower Back Pain, Sciatica. TOLD YEARS AGO SHE HAD HEART MURMUR- NO TX, HX ACUTE BRONCHITIS(SMOKER), August 2020 pancreatic cancer. Current head tremor. Feet, ankles and legs swelling History of Any Multi-Drug Resistant Organisms: None Reported Past Surgical History: Orthopedic Surgery, Tubal Ligation Additional Past Surgical History / Comment(s): 2 pins in right hip-dislocated 1975. Past Anesthesia/Blood Transfusion Reactions: No Reported Reaction Past Psychological History: Anxiety, Depression Smoking Status: Current every day smoker Past Alcohol Use History: None Reported Additional Past Alcohol Use History / Comment(s): Started smoking at age 17(1971), now smokes <1 ppd. Quit drinking August 2020, had been drinking 3-4 beers daily. Past Drug Use History: None Reported Additional Drug Use History / Comment(s): Quit drinking 09/07/20 was drinking 3-4 beers a day - Past Family History Mother Family Medical History: Liver Disease Father Family Medical History: Cancer Additional Family Medical History / Comment(s): Lung or liver cancer. Medications and Allergies Home Medications Medication Instructions Recorded Confirmed Type Docusate [Colace] 200 mg PO DAILY #30 cap 01/06/21 03/18/21 Rx Gabapentin [Neurontin] 300 mg PO BID 02/08/21 03/18/21 History Potassium Chloride ER [K-Dur 10] 10 meq PO BID 02/08/21 03/18/21 History traMADol HCL 50 mg PO Q6H PRN 02/08/21 03/18/21 History Lactulose 20 gm PO DAILY 4 Days #120 ml 02/12/21 03/18/21 Rx Magnesium Oxide [Mag-Ox] 400 mg PO BID 30 Days #60 tab 02/12/21 03/18/21 Rx Pantoprazole Sodium [Protonix] 40 mg PO DAILY #30 tab 02/12/21 03/18/21 Rx Folic Acid 1 mg PO DAILY #30 tab 02/21/21 03/18/21 Rx Furosemide [Lasix] 40 mg PO BID #60 tablet 02/21/21 03/18/21 Rx Ondansetron HCl [Zofran] 4 mg PO Q6H PRN 03/18/21 03/18/21 History lisinopriL 40 mg PO DAILY 03/18/21 03/18/21 History Allergies Allergy/AdvReac Type Severity Reaction Status Date / Time amylase [From Zenpep] AdvReac stomach Verified 03/18/21 18:52 pain erythromycin base AdvReac Nausea Verified 03/18/21 18:52 [Erythromycin Base] gabapentin AdvReac Hallucinati Verified 03/18/21 18:52 ons lipase [From Zenpep] AdvReac stomach Verified 03/18/21 18:52 pain protease [From Zenpep] AdvReac stomach Verified 03/18/21 18:52 pain Physical Exam Vitals: Vital Signs Temp Pulse Pulse Resp BP Pulse Ox 03/22/21 09:50 88 03/22/21 09:35 88 03/22/21 04:00 97.6 F 86 16 108/61 94 L 03/22/21 02:00 16 03/21/21 23:24 97.6 F 82 16 92/55 95 03/21/21 22:11 95 95/59 03/21/21 20:00 97.6 F 86 16 100/55 95 03/21/21 19:57 88 03/21/21 15:38 98.0 F 86 16 140/59 03/21/21 12:34 72 16 03/21/21 11:12 72 16 120/75 Intake and Output 03/21/21 03/22/21 03/22/21 22:59 06:59 14:59 Output Total 200 Balance -200 Output: Urine 200 Other: Voiding Method Indwelling Catheter Indwelling Catheter Weight 50 kg Results - Lab Results Most recent lab results Calcium 7.4 mg/dL (8.4-10.2) L 03/21/21 08:54 Magnesium 2.0 mg/dL (1.6-2.3) 03/20/21 09:38 03/21/21 08:54 03/21/21 08:54 Assessment and Plan Plan: Assessment: 1. Acute kidney injury mostly prerenal secondary to cardiorenal syndrome and infection. Creatinine 1.59 today. Baseline creatinine near 1. 2. Metabolic acidosis secondary to acute kidney injury. 3. Volume overload. 4. Protein calorie malnutrition. 5. Pancreatic cancer. 6. Klebsiella bacteremia on antibiotics. 7. Acute on chronic diastolic CHF. Plan: Maintain IV Lasix. 25 g IV albumin 2 doses today. Add oral sodium bicarb. Morning labs pending. Check UA and renal ultrasound. Continue to monitor renal function and urine output. Thank you for the consultation. I will continue to follow the patient with you during her hospital stay.
[2021-03-22] MEDS ORDERED: ALBUMIN HUMAN 25% 50 ML in EMPTY BAG 1 BAG IVPB SCH (11:30)
[2021-03-22] MEDS: MEGESTROL 400 MG/10 ML CUP PO SCH (12:07)
[2021-03-22] MEDS: ALBUMIN HUMAN 25% 50 ML in EMPTY BAG 1 BAG IVPB SCH ×3 (12:08→21:38)
[2021-03-22] MEDS: METOPROLOL TARTRATE 25 MG TAB PO SCH (12:19)
--- NOTE | 2021-03-22 12:30 | P.PN ---
Subjective This is a pleasant 65 years old -[place] female with past medical history of pancreatic cancer currently on chemotherapy states she is on her 6th treatment she follows with Dr. Muller, diabetes mellitus, hypertension, hyperlipidemia, osteoarthritis, chronic back pain with sciatica. 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 We are consulted for elevated troponin. She presents to the emergency department with worsening shortness of breath and lower extremity edema. She also had an episode of chest pain last night. Located on the right side of her chest, non radiating non-exertional. No specific aggravating or alleviating factors. She denies associated nausea, diaphoresis, lightheadedness or dizziness. She did have some episodes of diarrhea. She does have shortness of breath and some symptoms of orthopnea. She only sleeps with 1 pillow. No history of CAD, [place], Stroke. She states Dr. Muller recently started her on PO Lasix last week, but she has not picked up the prescription yet. 03/21 Patient seen and examined. Patient's albumin is severely decreased and appears to have severe protein calorie malnutrition with likely component of third spacing. She has been receiving IV Lasix and states that her breathing has somewhat improved. 03/22 Patient seen and examined with brother at bedside. Patient seen bugs in the bed and appears to be having some hallucinations. She denies any chest pain or pressure. She has been maintained on Lasix and also receiving IV albumin with severely decreased albumin noted. This tolerating some small amount of oral intake. She did have significant episodes of bradycardia overnight and therefor e metoprolol has been held. PHYSICAL EXAMINATION Viitals reviewed CONSTITUTIONAL: Chronically ill appearing, frail HEENT: Head is normocephalic. Pupils are equal, round. Sclerae anicteric. Mucous membranes of the mouth are moist. mild JVD. No carotid bruit. CHEST EXAMINATION: Lungs with diffuse crackles bilaterally to auscultation. No chest wall tenderness is noted on palpation or with deep breathing. HEART EXAMINATION: Regular rate and rhythm. S1, S2 heard. Systolic ejection murmur noted. ABDOMEN: Soft, nontender. Positive bowel sounds. EXTREMITIES: 2+ peripheral pulses, 2+ bilateral lower extremity edema up to patient's thighs NEUROLOGIC EXAMINATION: Patient is awake, alert ASSESSMENT Acute on chronic heart failure exacerbation with preserved EF Chest pain, atypical, resolved. Elevated troponin, suspect type II mechanism with preserved ejection fraction Acute Kidney Injury Pancreatic cancer currently on chemo Type 2 Diabetes Hypertension Hyperlipidemia Osteroarthritis Chronic back pain Leukocytosis Severe protein calorie malnutrition Bradycardia Preserved EF 55-60% by echo 03/19 PLAN Patient appears to have significant decompensation and does not appear to be improving significantly. Severe protein calorie malnutrition exacerbating attempts at diuresis. Patient is on IV albumin with diuretics and we will monitor response. Additionally having some bradycardia episodes and we will hold metoprolol. Prognosis guarded. Objective - Vital Signs Vital signs: Vital Signs Temp 98.1 F 03/22/21 08:00 Pulse 88 03/22/21 09:50 Resp 18 03/22/21 08:00 BP 104/63 03/22/21 08:00 Pulse Ox 92 L 03/22/21 08:00 Intake & Output 03/21/21 03/22/21 03/22/21 18:59 06:59 18:59 Intake Total 10 Output Total 150 200 Balance -140 -200 Weight 51 kg 50 kg Intake: IV 10 Invasive Line 1 10 Output: Urine 150 200 Other: Voiding Method Indwelling Catheter Indwelling Catheter Indwelling Catheter - Labs CBC & Chem 7: 03/21/21 08:54 03/21/21 08:54 Labs: Abnormal Lab Results - Last 24 Hours (Table) 03/21/21 Range/Units 22:02 PT 12.2 H (9.0-12.0) sec INR 1.2 H (<1.2) Microbiology - Last 24 Hours (Table) 03/21/21 09:05 Blood Culture - Preliminary Blood No Growth after 24 hours 03/18/21 19:21 Blood Culture Gram Stain - Final Blood Blood Culture - Final Klebsiella pneumoniae 03/18/21 19:00 Blood Culture Gram Stain - Final Blood Blood Culture - Final Klebsiella pneumoniae
--- NOTE | 2021-03-22 12:39 | US ---
EXAMINATION TYPE: US kidneys/renal and bladder DATE OF EXAM: 03/22/2021 COMPARISON: CT CLINICAL HISTORY: dylan. Abnormal labs EXAM MEASUREMENTS: Right Kidney: 9.1 x 4.6 x 4.2 cm Left Kidney: 9.7 x 5.1 x 4.6 cm Right Kidney: Visualized portions appeared wnl Left Kidney: Visualized portions appeared wnl, many peristalsing bowel loops within left flank Bladder: Catheter in place Incidental findings, mild ascites, GB sludge and wall thickening at 7mm There is no evidence for hydronephrosis at this point in time. No nephrolithiasis is seen. No vickie s are identified. The urinary bladder is anechoic. Bilateral ureteral jets are seen. IMPRESSION: 1. Gallbladder wall thickening felt be similar to prior CT abdomen pelvis there is concern for cholec ystitis consider nuclear medicine HIDA scan. 2. Biliary sludge 3. Minimal ascites. Similar to Prior CT.
[2021-03-22 14:09] LABS: Appearance,Urine Cloudy (Clear); Bacteria,Urine Occasional /hpf; Bilirubin,Urine Negative (Negative); Blood,Urine Trace (Negative); Budding Yeast,Urine Many /hpf; Color,Urine Yellow; Glucose,Urine (UA) Negative (Negative); Hyaline Casts,Urine 49 /lpf (0-2); Ketones,Urine Negative (Negative); Leukocyte Esterase,Urine Small (Negative); Mucus,Urine Few /hpf; Nitrite,Urine Negative (Negative); PH, Urine 5.5 (5.0-8.0); Protein,Urine 1+ (Negative); RBC,Urine 14 /hpf (0-5); Squamous Epithelial Cell,Urine 1 /hpf (0-4); Urobilinogen,Urine <2.0 mg/dL (<2.0); WBC,Urine 39 /hpf (0-5)
[2021-03-22] MEDS: SODIUM BICARBONATE TAB 650 MG TAB PO SCH ×3 (14:33→21:47)
--- NOTE | 2021-03-22 20:31 | PN ---
PROGRESS NOTE DATE OF SERVICE: 03/22/2021 REASON FOR FOLLOWUP: Klebsiella bacteremia secondary to possible pneumonia. INTERVAL HISTORY: The patient is afebrile. The patient is more awake and alert. The patient is breathing comfortably. The patient denies having any chest pain. She did have a cough, not bringing up any sputum. No abdominal pain or diarrhea. PHYSICAL EXAMINATION: Blood pressure 104/63 with a pulse of 83, temperature 98.1. She is 100% on 5 L nasal cannula. General description is an elderly female lying in bed in no distress. Respiratory system: Unlabored breathing, decreased intensity of breath sounds. No wheeze. Heart S1, S2. Regular rate and rhythm. Abdomen soft, no tenderness. LABS: Hemoglobin 9.3, white count 17.7. Creatinine is 1.59. Blood culture with Klebsiella sensitive to Rocephin. DIAGNOSTIC IMPRESSION AND PLAN: Patient with Klebsiella bacteremia; source is possibly urinary. Unfortunately, urine was not collected on admission and will results. The patient is covered Rocephin. That will be continued for now while monitoring clinical course closely. Son was at the bedside at the time of evaluation. Questions were answered. MMODL / IJN: [id number] /
--- NOTE | 2021-03-22 23:57 | P.PN ---
Subjective Progress Note Date: 03/20/21 Patient is a 66-year-old female with a known history of pancreatic cancer without evidence of metastatic disease in the recent imaging, status post second cycle of chemotherapy on March 07, 2021, hypertension, hyperlipidemia, osteoarthritis, GERD, lower back pain and sciatica, anxiety/depression and cu rrently everyday smoker presents to ER with complaints of abdominal pain and also shortness of breath. Patient ran out of her pain medications. She does take gabapentin and tramadol at home. Patient is also complaining of shortness of breath. Denies any complaints of cough or sputum production. No fever no chills. No nausea vomiting or diarrhea. Denies any chest pain. Patient states that she has chronic leg swelling and slightly increasing recently. She does take Lasix 40 mg twice daily. Patient was discharged from the hospital on 02/21/2021. She does admit to hospital due to hypoxic respiratory failure and possible pneumonia was considered and cultures have been negative. She was discharged home with oral antibiotics and was saturating above 92% on room air at that time. She was given morphine long-acting 15 mg twice daily with good pain control. Chest x-ray showed no acute cardiopulmonary process. EKG showed sinus rhythm with nonspecific ST-T wave abnormalities. Laboratory data showed WBC 21.5 hemoglobin 9.2 and platelets 103 INR 1.4 Sodium 133 potassium 4.2 chloride 110 bicarb is 15 BUN 26 and creatinine 1.49 AST 25 ALT 16 alk phos 374, bili 0.7 Troponin 0 0.145, 0.14 creatinine 0.140 proBNP 7990 and albumin 1.5 Patient was tachycardic on admission. 03/20/2021 Patient is currently resting in the bed. Awake alert but lethargic unable to get out of bed. Bilateral leg swelling is improving. Patient is also hypoalbuminemic. Seen by oncology and started on appetite stimulant. Pain is better controlled with sustained-release morphine. Patient has been afebrile. No complaints of chest pain. Laboratory data showed WBC 21.4 hemoglobin 10.3 and platelets 131 sodium 136 potassium 4.6 chloride 112 BUN 28 and creatinine 1.41 and calcium 7.6 patient is being continued on Lasix changed to 20 mg IV every 12. Currently maintained antibiotics in the form of ceftriaxone. Blood cultures grew gram-negative bacilli. ID was consulted.. REVIEW OF SYSTEMS CONSTITUTIONAL: Denies fever or chills. CARDIOVASCULAR: Denies chest pain, shortness of breath, orthopnea, PND or palpitations. RESPIRATORY: Denies cough. GASTROINTESTINAL: mild abdominal pain, no diarrhea, constipation, nausea or vomiting. MUSCULOSKELETAL: Denies myalgias. NEUROLOGIC: Denies numbness, tingling or weakness. ENDOCRINE: Denies fatigue, weight change, polydipsia or polyurina. GENITOURINARY: Denies burning, hematuria or urgency with micturation. HEMATOLOGIC: Denies history of anemia or bleeding. Current medications reviewed. Objective - Vital Signs Vital signs: Vital Signs Temp 97.6 F 03/20/21 20:00 Pulse 92 03/20/21 20:00 Resp 16 03/20/21 20:00 BP 88/61 03/20/21 20:53 Pulse Ox 90 L 03/20/21 20:00 Intake & Output 03/20/21 03/20/21 03/21/21 06:59 18:59 06:59 Intake Total 0 Output Total 564 Balance -564 Weight 50.5 kg Intake: Oral 0 Output: Urine 200 Post Void Residual 364 Other: # Voids 0 # Bowel Movements 1 - Exam PHYSICAL EXAMINATION: Patient is lying in the bed comfortably, no acute distress, awake alert and oriented.. HEENT: Normocephalic. Neck is supple. Pupils reactive. Nostrils clear. Oral cavity is moist. Neck reveals no JVD, carotid bruits, or thyromegaly. CHEST EXAMINATION: Trachea is central. Symmetrical expansion. Lung mccrary clear to auscultation and percussion. CARDIAC: Normal S1, S2 with no gallops. No murmurs ABDOMEN: Soft. Mild epigastric abdominal tenderness. Bowel sounds normal. No organomegaly. No abdominal bruits. Extremities:Bilateral 2+ pedal edema. . No clubbing or cyanosis Neurologically awake, alert, oriented x3 with well-coordinated movements. No focal deficits noted Skin: No rash or skin lesions. Psychiatric: Cooperative. Nonsuicidal Musculoskeletal: No joint swelling or deformity. Normal range of motion. - Labs CBC & Chem 7: 03/21/21 08:54 03/21/21 08:54 Labs: Abnormal Lab Results - Last 24 Hours (Table) 03/20/21 03/20/21 Range/Units 09:38 09:38 WBC 21.4 H (3.8-10.6) k/uL RBC 3.43 L (3.80-5.40) m/uL Hgb 10.3 L (11.4-16.0) gm/dL MCV 103.3 H D (80.0-100.0) fL MCHC 29.2 L (31.0-37.0) g/dL RDW 18.6 H (11.5-15.5) % Plt Count 131 L (150-450) k/uL Neutrophils # 18.9 H (1.3-7.7) k/uL Sodium 136 L (137-145) mmol/L Chloride 112 H (98-107) mmol/L Carbon Dioxide 19 L (22-30) mmol/L BUN 28 H (7-17) mg/dL Creatinine 1.41 H (0.52-1.04) mg/dL Glucose 129 H (74-99) mg/dL Calcium 7.6 L (8.4-10.2) mg/dL Microbiology - Last 24 Hours (Table) 03/18/21 19:21 Blood Culture Gram Stain - Preliminary Blood Blood Culture - Preliminary Gram Neg Bacilli 03/18/21 19:00 Blood Culture Gram Stain - Preliminary Blood Blood Culture - Preliminary Klebsiella pneumoniae Assessment and Plan Assessment: Shortness of breath likely due to acute on chronic CHF with diastolic dysfunction. Recent echocardiogram showed ejection fraction 60 to 65%. Elevated troponin level. Possible demand mismatch Juan Luis negative bacilli bacteremia Pancreatic cancer without evidence of metastatic disease as per recent imaging. Status post second cycle of chemotherapy on March 07, 2021 Acute kidney injury likely prerenal Hypertension Hyperlipidemia Diabetes type 2 [id number] Hypoalbuminemia and chronic bilateral leg swelling Chronic back pain GERD Anxiety/depression and Currently everyday smoker Plan: Patient was given IV hydration in the ER. Continue with ceftriaxone and follow- up final culture reports . Patient will be continued on IV Lasix 40-->20 mg twice daily. Cardiology and oncology is on board. Continue with pain medications morphine 15 mg twice daily and bowel regimen. Follow-up closely. Prognosis is guarded at this time. Time with Patient: Greater than 30
--- NOTE | 2021-03-22 23:59 | P.PN ---
Subjective Progress Note Date: 03/21/21 Patient is a 66-year-old female with a known history of pancreatic cancer without evidence of metastatic disease in the recent imaging, status post second cycle of chemotherapy on March 07, 2021, hypertension, hyperlipidemia, osteoarthritis, GERD, lower back pain and sciatica, anxiety/depression and cu rrently everyday smoker presents to ER with complaints of abdominal pain and also shortness of breath. Patient ran out of her pain medications. She does take gabapentin and tramadol at home. Patient is also complaining of shortness of breath. Denies any complaints of cough or sputum production. No fever no chills. No nausea vomiting or diarrhea. Denies any chest pain. Patient states that she has chronic leg swelling and slightly increasing recently. She does take Lasix 40 mg twice daily. Patient was discharged from the hospital on 02/21/2021. She does admit to hospital due to hypoxic respiratory failure and possible pneumonia was considered and cultures have been negative. She was discharged home with oral antibiotics and was saturating above 92% on room air at that time. She was given morphine long-acting 15 mg twice daily with good pain control. Chest x-ray showed no acute cardiopulmonary process. EKG showed sinus rhythm with nonspecific ST-T wave abnormalities. Laboratory data showed WBC 21.5 hemoglobin 9.2 and platelets 103 INR 1.4 Sodium 133 potassium 4.2 chloride 110 bicarb is 15 BUN 26 and creatinine 1.49 AST 25 ALT 16 alk phos 374, bili 0.7 Troponin 0 0.145, 0.14 creatinine 0.140 proBNP 7990 and albumin 1.5 Patient was tachycardic on admission. 03/20/2021 Patient is currently resting in the bed. Awake alert but lethargic unable to get out of bed. Bilateral leg swelling is improving. Patient is also hypoalbuminemic. Seen by oncology and started on appetite stimulant. Pain is better controlled with sustained-release morphine. Patient has been afebrile. No complaints of chest pain. Laboratory data showed WBC 21.4 hemoglobin 10.3 and platelets 131 sodium 136 potassium 4.6 chloride 112 BUN 28 and creatinine 1.41 and calcium 7.6 patient is being continued on Lasix changed to 20 mg IV every 12. Currently maintained antibiotics in the form of ceftriaxone. Blood cultures grew gram-negative bacilli. ID was consulted.. 03/21/2021 Patient is currently resting in the bed. Awake alert and oriented. Lethargic and weak. Patient is being on IV Lasix 20 mg twice daily due to generalized swelling and lower extremity edema. Laboratory data showed WBC 17.7 hemoglobin 9.7 and platelets 116 BUN 27 creatinine 1.59. Patient is being continued on ceftriaxone due to gram-negative bacilli bacteremia/Klebsiella bacteremia repeat cultures was ordered. REVIEW OF SYSTEMS CONSTITUTIONAL: Denies fever or chills. CARDIOVASCULAR: Denies chest pain, shortness of breath, orthopnea, PND or palpitations. RESPIRATORY: Denies cough. GASTROINTESTINAL: mild abdominal pain, no diarrhea, constipation, nausea or vomiting. MUSCULOSKELETAL: Denies myalgias. NEUROLOGIC: Denies numbness, tingling or weakness. ENDOCRINE: Denies fatigue, weight change, polydipsia or polyurina. GENITOURINARY: Denies burning, hematuria or urgency with micturation. HEMATOLOGIC: Denies history of anemia or bleeding. Current medications reviewed. Objective - Vital Signs Vital signs: Vital Signs Temp 97.6 F 03/21/21 20:00 Pulse 95 03/21/21 22:11 Resp 16 03/21/21 20:00 BP 95/59 03/21/21 22:11 Pulse Ox 95 03/21/21 20:00 Intake & Output 03/21/21 03/21/21 03/22/21 06:59 18:59 06:59 Intake Total 10 Output Total 150 Balance -140 Weight 51 kg 51 kg Intake: IV 10 Invasive Line 1 10 Output: Urine 150 Other: Voiding Method Indwelling Catheter Indwelling Catheter Indwelling Catheter - Exam PHYSICAL EXAMINATION: Patient is lying in the bed comfortably, no acute distress, awake alert and oriented.. HEENT: Normocephalic. Neck is supple. Pupils reactive. Nostrils clear. Oral c avity is moist. Neck reveals no JVD, carotid bruits, or thyromegaly. CHEST EXAMINATION: Trachea is central. Symmetrical expansion. Lung mccrary clear to auscultation and percussion. CARDIAC: Normal S1, S2 with no gallops. No murmurs ABDOMEN: Soft. Mild epigastric abdominal tenderness. Bowel sounds normal. No organomegaly. No abdominal bruits. Extremities:Bilateral 2+ pedal edema. . No clubbing or cyanosis Neurologically awake, alert, oriented x3 with well-coordinated movements. No focal deficits noted Skin: No rash or skin lesions. Psychiatric: Cooperative. Nonsuicidal Musculoskeletal: No joint swelling or deformity. Normal range of motion. - Labs CBC & Chem 7: 03/21/21 08:54 03/21/21 08:54 Labs: Abnormal Lab Results - Last 24 Hours (Table) 03/21/21 03/21/21 03/21/21 Range/Units 05:20 08:54 08:54 WBC 17.7 H (3.8-10.6) k/uL RBC 3.25 L (3.80-5.40) m/uL Hgb 9.7 L (11.4-16.0) gm/dL MCV 112.7 H D (80.0-100.0) fL MCHC 26.4 L (31.0-37.0) g/dL RDW 18.9 H (11.5-15.5) % Plt Count 116 L (150-450) k/uL Neutrophils # 15.6 H (1.3-7.7) k/uL Macrocytosis Marked A PT (9.0-12.0) sec INR (<1.2) Chloride 115 H (98-107) mmol/L Carbon Dioxide 13 L (22-30) mmol/L BUN 27 H (7-17) mg/dL Creatinine 1.59 H (0.52-1.04) mg/dL POC Glucose (mg/dL) 100 H (75-99) mg/dL Calcium 7.4 L (8.4-10.2) mg/dL 03/21/21 Range/Units 22:02 WBC (3.8-10.6) k/uL RBC (3.80-5.40) m/uL Hgb (11.4-16.0) gm/dL MCV (80.0-100.0) fL MCHC (31.0-37.0) g/dL RDW (11.5-15.5) % Plt Count (150-450) k/uL Neutrophils # (1.3-7.7) k/uL Macrocytosis PT 12.2 H (9.0-12.0) sec INR 1.2 H (<1.2) Chloride (98-107) mmol/L Carbon Dioxide (22-30) mmol/L BUN (7-17) mg/dL Creatinine (0.52-1.04) mg/dL POC Glucose (mg/dL) (75-99) mg/dL Calcium (8.4-10.2) mg/dL Microbiology - Last 24 Hours (Table) 03/18/21 19:21 Blood Culture Gram Stain - Final Blood Blood Culture - Final Klebsiella pneumoniae 03/18/21 19:00 Blood Culture Gram Stain - Final Blood Blood Culture - Final Klebsiella pneumoniae Assessment and Plan Assessment: Shortness of breath likely due to acute on chronic CHF with diastolic dysfunction. Recent echocardiogram showed ejection fraction 60 to 65%. Elevated troponin level. Possible demand mismatch Juan Luis negative bacilli// Klebsiella bacteremia Pancreatic cancer without evidence of metastatic disease as per recent imaging. Status post second cycle of chemotherapy on March 07, 2021 Acute kidney injury likely prerenal Hypertension Hyperlipidemia Diabetes type 2 [id number] Hypoalbuminemia and chronic bilateral leg swelling Chronic back pain GERD Anxiety/depression and Currently everyday smoker Plan: Patient was given IV hydration in the ER. Continue with ceftriaxone and follow- up final culture reports . Patient will be continued on IV Lasix 40-->20 mg twice daily. Cardiology and oncology is on board. Continue with pain medications morphine 15 mg twice daily and bowel regimen. Follow-up closely. Prognosis is guarded at this time. Time with Patient: Greater than 30
--- NOTE | 2021-03-23 00:03 | P.PN ---
Subjective Progress Note Date: 03/22/21 Patient is a 66-year-old female with a known history of pancreatic cancer without evidence of metastatic disease in the recent imaging, status post second cycle of chemotherapy on March 07, 2021, hypertension, hyperlipidemia, osteoarthritis, GERD, lower back pain and sciatica, anxiety/depression and cu rrently everyday smoker presents to ER with complaints of abdominal pain and also shortness of breath. Patient ran out of her pain medications. She does take gabapentin and tramadol at home. Patient is also complaining of shortness of breath. Denies any complaints of cough or sputum production. No fever no chills. No nausea vomiting or diarrhea. Denies any chest pain. Patient states that she has chronic leg swelling and slightly increasing recently. She does take Lasix 40 mg twice daily. Patient was discharged from the hospital on 02/21/2021. She does admit to hospital due to hypoxic respiratory failure and possible pneumonia was considered and cultures have been negative. She was discharged home with oral antibiotics and was saturating above 92% on room air at that time. She was given morphine long-acting 15 mg twice daily with good pain control. Chest x-ray showed no acute cardiopulmonary process. EKG showed sinus rhythm with nonspecific ST-T wave abnormalities. Laboratory data showed WBC 21.5 hemoglobin 9.2 and platelets 103 INR 1.4 Sodium 133 potassium 4.2 chloride 110 bicarb is 15 BUN 26 and creatinine 1.49 AST 25 ALT 16 alk phos 374, bili 0.7 Troponin 0 0.145, 0.14 creatinine 0.140 proBNP 7990 and albumin 1.5 Patient was tachycardic on admission. 03/20/2021 Patient is currently resting in the bed. Awake alert but lethargic unable to get out of bed. Bilateral leg swelling is improving. Patient is also hypoalbuminemic. Seen by oncology and started on appetite stimulant. Pain is better controlled with sustained-release morphine. Patient has been afebrile. No complaints of chest pain. Laboratory data showed WBC 21.4 hemoglobin 10.3 and platelets 131 sodium 136 potassium 4.6 chloride 112 BUN 28 and creatinine 1.41 and calcium 7.6 patient is being continued on Lasix changed to 20 mg IV every 12. Currently maintained antibiotics in the form of ceftriaxone. Blood cultures grew gram-negative bacilli. ID was consulted.. 03/21/2021 Patient is currently resting in the bed. Awake alert and oriented. Lethargic and weak. Patient is being on IV Lasix 20 mg twice daily due to generalized swelling and lower extremity edema. Laboratory data showed WBC 17.7 hemoglobin 9.7 and platelets 116 BUN 27 creatinine 1.59. Patient is being continued on ceftriaxone due to gram-negative bacilli bacteremia/Klebsiella bacteremia repeat cultures was ordered. 03/22/2021 Patient is currently resting in bed. Lethargic and very weak. Denies any complaints of chest pain or shortness of breath. Patient is being continued IV Lasix 20 mg twice daily. Patient received IV albumin and was started on sodium bicarb.. Nephrology and cardiology is on board. Discussed with the family at bedside in detail regarding her pancreatic cancer and other multiple medical problems. Considering transferring to rehab and possible palliative care. Patient is otherwise maintained on ceftriaxone for Klebsiella bacteremia. REVIEW OF SYSTEMS CONSTITUTIONAL: Denies fever or chills. CARDIOVASCULAR: Denies chest pain, shortness of breath, orthopnea, PND or p alpitations. RESPIRATORY: Denies cough. GASTROINTESTINAL: mild abdominal pain, no diarrhea, constipation, nausea or vomiting. MUSCULOSKELETAL: Denies myalgias. NEUROLOGIC: Denies numbness, tingling or weakness. ENDOCRINE: Denies fatigue, weight change, polydipsia or polyurina. GENITOURINARY: Denies burning, hematuria or urgency with micturation. HEMATOLOGIC: Denies history of anemia or bleeding. Current medications reviewed. Objective - Vital Signs Vital signs: Vital Signs Temp 98.1 F 03/22/21 16:00 Pulse 86 03/22/21 20:49 Resp 18 03/22/21 16:00 BP 104/63 03/22/21 16:00 Pulse Ox 100 03/22/21 16:00 Intake & Output 03/22/21 03/22/21 03/23/21 06:59 18:59 06:59 Output Total 200 Balance -200 Weight 50 kg Output: Urine 200 Other: Voiding Method Indwelling Catheter Indwelling Catheter - Exam PHYSICAL EXAMINATION: Patient is lying in the bed comfortably, no acute distress, awake alert and oriented.. HEENT: Normocephalic. Neck is supple. Pupils reactive. Nostrils clear. Oral cavity is moist. Neck reveals no JVD, carotid bruits, or thyromegaly. CHEST EXAMINATION: Trachea is central. Symmetrical expansion. Lung mccrary clear to auscultation and percussion. CARDIAC: Normal S1, S2 with no gallops. No murmurs ABDOMEN: Soft. Mild epigastric abdominal tenderness. Bowel sounds normal. No organomegaly. No abdominal bruits. Extremities:Bilateral 2+ pedal edema. . No clubbing or cyanosis Neurologically awake, alert, oriented x3 with well-coordinated movements. No focal deficits noted Skin: No rash or skin lesions. Psychiatric: Cooperative. Nonsuicidal Musculoskeletal: No joint swelling or deformity. Normal range of motion. - Labs CBC & Chem 7: 03/21/21 08:54 03/21/21 08:54 Labs: Abnormal Lab Results - Last 24 Hours (Table) 03/21/21 03/22/21 Range/Units 22:02 13:30 PT 12.2 H (9.0-12.0) sec INR 1.2 H (<1.2) Urine Appearance Cloudy H (Clear) Urine Protein 1+ H (Negative) Urine Blood Trace H (Negative) Ur Leukocyte Esterase Small H (Negative) Urine RBC 14 H (0-5) /hpf Urine WBC 39 H (0-5) /hpf Urine Bacteria Occasional H (None) /hpf Hyaline Casts 49 H (0-2) /lpf Urine Mucus Few H (None) /hpf Urine Yeast (Budding) Many H (None) /hpf Microbiology - Last 24 Hours (Table) 03/21/21 09:05 Blood Culture - Preliminary Blood No Growth after 24 hours Assessment and Plan Assessment: Shortness of breath likely due to acute on chronic CHF with diastolic dysfunction. Recent echocardiogram showed ejection fraction 60 to 65%. Elevated troponin level. Possible demand mismatch Juan Luis negative bacilli// Klebsiella bacteremia Pancreatic cancer without evidence of metastatic disease as per recent imaging. Status post second cycle of chemotherapy on March 07, 2021 Acute kidney injury likely prerenal Hypertension Hyperlipidemia Diabetes type 2 [id number] Hypoalbuminemia and chronic bilateral leg swelling Chronic back pain GERD Anxiety/depression and Currently everyday smoker Moderate to severe protein calorie malnutrition. Plan: Patient was given IV hydration in the ER. Continue with ceftriaxone and follow- up final culture reports .Repeat blood cultures have been negative so far. Patient will be continued on IV Lasix 40-->20 mg twice daily. Cardiology and oncology is on board. Continue with pain medications morphine 15 mg twice daily and bowel regimen. Follow-up closely. Prognosis is guarded at this time. Time with Patient: Greater than 30
[2021-03-23] MEDS: ALBUMIN HUMAN 25% 50 ML in EMPTY BAG 1 BAG IVPB SCH (00:07)
[2021-03-23] MEDS: PANTOPRAZOLE 40 MG TABLET PO SCH (06:43)
[2021-03-23] MEDS: IPRATROPIUM-ALBUTEROL 3 ML NEB INHALATION SCH ×3 (08:55→21:10)
[2021-03-23 09:28] LABS: Anisocytosis Slight; HCT 28.1 % (34.0-46.0); HGB 8.8 gm/dL (11.4-16.0); Hypochromasia Moderate; MCH 30.5 pg (25.0-35.0); MCHC 31.3 g/dL (31.0-37.0); MCV 97.7 fL (80.0-100.0); Macrocytosis Slight; Mean Platelet Volume 15.7; RBC 2.88 m/uL (3.80-5.40); WBC 20.3 k/uL (3.8-10.6)
[2021-03-23] MEDS: HEPARIN SODIUM,PORCINE/PF 5,000 UNIT/0.5 ML SYRINGE SQ SCH ×2 (09:29→20:03)
[2021-03-23] MEDS: FUROSEMIDE 10 MG/ML 2 ML VIAL IV SCH ×2 (09:29→20:02)
[2021-03-23 10:15] LABS: Neutrophils # (M) 19.89 k/uL (1.3-7.7); Neutrophils % (M) 98 %; Nucleated Red Blood Cells 0 /100 WBC (0-0); Target Cells Present; Total Cells Counted 100
[2021-03-23 10:17] LABS: Large Platelets Present
[2021-03-23 10:19] LABS: Platelet Count 98 k/uL (150-450)
[2021-03-23] MEDS: DOCUSATE 100 MG CAP PO SCH (11:09)
[2021-03-23] MEDS: ATORVASTATIN 40 MG TAB PO SCH (11:09)
[2021-03-23] MEDS: ASPIRIN 81 MG PO SCH (11:09)
[2021-03-23] MEDS: FOLIC ACID 1 MG TAB PO SCH (11:10)
[2021-03-23] MEDS: MEGESTROL 400 MG/10 ML CUP PO SCH (11:11)
[2021-03-23] MEDS: SODIUM BICARBONATE TAB 650 MG TAB PO SCH ×3 (11:11→20:03)
[2021-03-23] MEDS: LACTULOSE 20 GM/30 ML CUP PO SCH (11:11)
[2021-03-23] MEDS: MAGNESIUM OXIDE 400 MG TAB PO SCH ×2 (11:11→20:03)
[2021-03-23] MEDS: MORPHINE SULFATE ER 15 MG TABLET PO SCH ×2 (11:11→20:03)
--- NOTE | 2021-03-23 11:15 | P.PN ---
Subjective This is a pleasant 65 years old -[place] female with past medical history of pancreatic cancer currently on chemotherapy states she is on her 6th treatment she follows with Dr. Muller, diabetes mellitus, hypertension, hyperlipidemia, osteoarthritis, chronic back pain with sciatica. She does not follow with a belt worker. We are consulted for elevated troponin. She presents to the emergency department with worsening shortness of breath and lower extremity edema. She also had an episode of chest pain last night. Located on the right side of her chest, non radiating non-exertional. No specific aggravating or alleviating factors. She denies associated nausea, diaphoresis, lightheadedness or dizziness. She did have some episodes of diarrhea. She does have shortness of breath and some symptoms of orthopnea. She only sleeps with 1 pillow. No history of CAD, [place], Stroke. She states Dr. Muller recently started her on PO Lasix last week, but she has not picked up the prescription yet. 03/21 Patient seen and examined. Patient's albumin is severely decreased and appears to have severe protein calorie malnutrition with likely component of third spacing. She has been receiving IV Lasix and states that her breathing has somewhat improved. 03/22 Patient seen and examined with brother at bedside. Patient seen bugs in the bed and appears to be having some hallucinations. She denies any chest pain or pressure. She has been maintained on Lasix and also receiving IV albumin with severely decreased albumin noted. This tolerating some small amount of oral intake. She did have significant episodes of bradycardia overnight and therefor e metoprolol has been held. 03/23 Blood work shows continued white blood cell count 20, hemoglobin 8.8, platelets 98, no BMP since 03/21 secondary to inability to draw. Urinalysis shows 39 white blood cells, 14 red blood cells. The pressures borderline but controlled. Patient somnolent however answers some questions. Denies any chest pain or pressure. PHYSICAL EXAMINATION Viitals reviewed CONSTITUTIONAL: Chronically ill appearing, frail HEENT: Head is normocephalic. Pupils are equal, round. Sclerae anicteric. Mucous membranes of the mouth are moist. mild JVD. No carotid bruit. CHEST EXAMINATION: Lungs with diffuse crackles bilaterally to auscultation. No chest wall tenderness is noted on palpation or with deep breathing. HEART EXAMINATION: Regular rate and rhythm. S1, S2 heard. Systolic ejection murmur noted. ABDOMEN: Soft, nontender. Positive bowel sounds. EXTREMITIES: 2+ peripheral pulses, 2+ bilateral lower extremity edema up to patient's thighs NEUROLOGIC EXAMINATION: Patient is awake, alert ASSESSMENT Acute on chronic heart failure exacerbation with preserved EF Chest pain, atypical, resolved. Elevated troponin, suspect type II mechanism with preserved ejection fraction Acute Kidney Injury Pancreatic cancer currently on chemo Type 2 Diabetes Hypertension Hyperlipidemia Osteroarthritis Chronic back pain Leukocytosis Severe protein calorie malnutrition Bradycardia Preserved EF 55-60% by echo 03/19 PLAN Severe protein calorie malnutrition exacerbating attempts at diuresis. Patient with some bradycardia episodes and continue to hold metoprolol. Appears to have failure to thrive and not able to eat anything and therefore prognosis is grave. Continue with supportive care and appears appropriate for palliative discussions. Objective - Vital Signs Vital signs: Vital Signs Temp 97.4 F L 03/23/21 08:00 Pulse 80 03/23/21 09:09 Resp 18 03/23/21 08:00 BP 110/66 03/23/21 08:00 Pulse Ox 100 03/23/21 08:00 Intake & Output 03/22/21 03/23/21 03/23/21 18:59 06:59 18:59 Output Total 350 Balance -350 Weight 54.5 kg Output: Urine 350 Other: Voiding Method Indwelling Catheter Indwelling Catheter Indwelling Catheter - Labs CBC & Chem 7: 03/23/21 08:42 03/21/21 08:54 Labs: Abnormal Lab Results - Last 24 Hours (Table) 03/22/21 03/23/21 Range/Units 13:30 08:42 WBC 20.3 H (3.8-10.6) k/uL RBC 2.88 L (3.80-5.40) m/uL Hgb 8.8 L (11.4-16.0) gm/dL Hct 28.1 L (34.0-46.0) % RDW 19.0 H (11.5-15.5) % Plt Count 98 L (150-450) k/uL Neutrophils # (Manual) 19.89 H (1.3-7.7) k/uL Lymphocytes # (Manual) 0.20 L (1.0-4.8) k/uL Urine Appearance Cloudy H (Clear) Urine Protein 1+ H (Negative) Urine Blood Trace H (Negative) Ur Leukocyte Esterase Small H (Negative) Urine RBC 14 H (0-5) /hpf Urine WBC 39 H (0-5) /hpf Urine Bacteria Occasional H (None) /hpf Hyaline Casts 49 H (0-2) /lpf Urine Mucus Few H (None) /hpf Urine Yeast (Budding) Many H (None) /hpf Microbiology - Last 24 Hours (Table) 03/21/21 09:05 Blood Culture - Preliminary Blood No Growth after 24 hours
--- NOTE | 2021-03-23 11:20 | P.PN ---
Subjective Patient is seen in follow-up for acute kidney injury. Morning labs pending. Maintained on bicarb drip. Oral intake poor. Blood pressure stable this morning. Patient is not a reliable historian. Vital signs are stable. HEENT: Head exam is unremarkable. LUNGS: Breath sounds decreased. HEART: Rate and Rhythm are regular. ABDOMEN: Soft, no distention. EXTREMITITES: 1+ edema. Objective - Vital Signs Vital signs: Vital Signs Temp 97.4 F L 03/23/21 08:00 Pulse 80 03/23/21 09:09 Resp 18 03/23/21 08:00 BP 110/66 03/23/21 08:00 Pulse Ox 100 03/23/21 08:00 Intake & Output 03/22/21 03/23/21 03/23/21 18:59 06:59 18:59 Output Total 350 Balance -350 Weight 54.5 kg Output: Urine 350 Other: Voiding Method Indwelling Catheter Indwelling Catheter Indwelling Catheter - Labs CBC & Chem 7: 03/23/21 08:42 03/21/21 08:54 Labs: Abnormal Lab Results - Last 24 Hours (Table) 03/22/21 03/23/21 Range/Units 13:30 08:42 WBC 20.3 H (3.8-10.6) k/uL RBC 2.88 L (3.80-5.40) m/uL Hgb 8.8 L (11.4-16.0) gm/dL Hct 28.1 L (34.0-46.0) % RDW 19.0 H (11.5-15.5) % Plt Count 98 L (150-450) k/uL Neutrophils # (Manual) 19.89 H (1.3-7.7) k/uL Lymphocytes # (Manual) 0.20 L (1.0-4.8) k/uL Urine Appearance Cloudy H (Clear) Urine Protein 1+ H (Negative) Urine Blood Trace H (Negative) Ur Leukocyte Esterase Small H (Negative) Urine RBC 14 H (0-5) /hpf Urine WBC 39 H (0-5) /hpf Urine Bacteria Occasional H (None) /hpf Hyaline Casts 49 H (0-2) /lpf Urine Mucus Few H (None) /hpf Urine Yeast (Budding) Many H (None) /hpf Microbiology - Last 24 Hours (Table) 03/21/21 09:05 Blood Culture - Preliminary Blood No Growth after 24 hours Assessment and Plan Plan: Assessment: 1. Acute kidney injury mostly prerenal secondary to cardiorenal syndrome and infection. Creatinine 1.59 as of 03/21/2021. Baseline creatinine near 1. No hydronephrosis noted kidney ultrasound. 2. Metabolic acidosis secondary to acute kidney injury. Maintained on oral bicarbonate. 3. Volume overload. 4. Protein calorie malnutrition. 5. Pancreatic cancer. 6. Klebsiella bacteremia on antibiotics. UA suggestive of UTI. 7. Acute on chronic diastolic CHF. Plan: Maintain IV Lasix. Status post IV albumin 03/22/2021. Morning labs pending. Continue to monitor renal function and urine output. Prognosis guarded.
[2021-03-23 12:23] LABS: Albumin 2.2 g/dL (3.5-5.0); Calcium 7.7 mg/dL (8.4-10.2); Magnesium 2.1 mg/dL (1.6-2.3); Total Bilirubin 0.7 mg/dL (0.2-1.3); Total Protein 4.6 g/dL (6.3-8.2)
[2021-03-23] MEDS: HYDROmorphone 0.5 MG/0.5 ML SYRINGE IVP PRN ×2 (14:40→18:23)
[2021-03-23] MEDS ORDERED: SODIUM BICARB 8.4% 50 ML SYR (1 MEQ/ML) IV STA (15:31)
[2021-03-23] MEDS ORDERED: IOPAMIDOL CONTRAST (ORAL USE) VIAL PO PRN (20:22)
--- NOTE | 2021-03-23 22:40 | PN ---
PROGRESS NOTE DATE OF SERVICE: 03/23/2021 REASON FOR FOLLOWUP: Klebsiella bacteremia; source possibly urinary port-related. INTERVAL HISTORY: The patient is currently afebrile. The patient is breathing comfortably. The patient denies having any chest pain or shortness of breath or cough. No abdominal pain or diarrhea. PHYSICAL EXAMINATION: Blood pressure 108/70 with a pulse of 100, temperature 97.8. She is 100% on 3 L nasal cannula. General description is an elderly female lying in bed in no distress. Respiratory system: Unlabored breathing, clear to auscultation anteriorly. Heart S1, S2. Regular rate and rhythm. Abdomen soft, no tenderness. LABS: Hemoglobin is 8.9, white count 20.3. Creatinine is 1.28. DIAGNOSTIC IMPRESSION AND PLAN: Patient with Klebsiella bacteremia, source questionable urinary; however, the patient did have a MediPort and high risk of infection or seeding of the port. Urine was done late and was not significantly positive. We will obtain a CT of abdomen and pelvis with oral contrast only to make sure no evidence of any abdominal source in view of the elevated white count, and continue supportive care. MMODL / IJN: [id number] /
[2021-03-24] MEDS: HYDROmorphone 0.5 MG/0.5 ML SYRINGE IVP PRN ×4 (00:33→13:23)
--- NOTE | 2021-03-24 01:39 | P.PN ---
Subjective Progress Note Date: 03/23/21 Patient is a 66-year-old female with a known history of pancreatic cancer without evidence of metastatic disease in the recent imaging, status post second cycle of chemotherapy on March 07, 2021, hypertension, hyperlipidemia, osteoarthritis, GERD, lower back pain and sciatica, anxiety/depression and cu rrently everyday smoker presents to ER with complaints of abdominal pain and also shortness of breath. Patient ran out of her pain medications. She does take gabapentin and tramadol at home. Patient is also complaining of shortness of breath. Denies any complaints of cough or sputum production. No fever no chills. No nausea vomiting or diarrhea. Denies any chest pain. Patient states that she has chronic leg swelling and slightly increasing recently. She does take Lasix 40 mg twice daily. Patient was discharged from the hospital on 02/21/2021. She does admit to hospital due to hypoxic respiratory failure and possible pneumonia was considered and cultures have been negative. She was discharged home with oral antibiotics and was saturating above 92% on room air at that time. She was given morphine long-acting 15 mg twice daily with good pain control. Chest x-ray showed no acute cardiopulmonary process. EKG showed sinus rhythm with nonspecific ST-T wave abnormalities. Laboratory data showed WBC 21.5 hemoglobin 9.2 and platelets 103 INR 1.4 Sodium 133 potassium 4.2 chloride 110 bicarb is 15 BUN 26 and creatinine 1.49 AST 25 ALT 16 alk phos 374, bili 0.7 Troponin 0 0.145, 0.14 creatinine 0.140 proBNP 7990 and albumin 1.5 Patient was tachycardic on admission. 03/20/2021 Patient is currently resting in the bed. Awake alert but lethargic unable to get out of bed. Bilateral leg swelling is improving. Patient is also hypoalbuminemic. Seen by oncology and started on appetite stimulant. Pain is better controlled with sustained-release morphine. Patient has been afebrile. No complaints of chest pain. Laboratory data showed WBC 21.4 hemoglobin 10.3 and platelets 131 sodium 136 potassium 4.6 chloride 112 BUN 28 and creatinine 1.41 and calcium 7.6 patient is being continued on Lasix changed to 20 mg IV every 12. Currently maintained antibiotics in the form of ceftriaxone. Blood cultures grew gram-negative bacilli. ID was consulted.. 03/21/2021 Patient is currently resting in the bed. Awake alert and oriented. Lethargic and weak. Patient is being on IV Lasix 20 mg twice daily due to generalized swelling and lower extremity edema. Laboratory data showed WBC 17.7 hemoglobin 9.7 and platelets 116 BUN 27 creatinine 1.59. Patient is being continued on ceftriaxone due to gram-negative bacilli bacteremia/Klebsiella bacteremia repeat cultures was ordered. 03/22/2021 Patient is currently resting in bed. Lethargic and very weak. Denies any complaints of chest pain or shortness of breath. Patient is being continued IV Lasix 20 mg twice daily. Patient received IV albumin and was started on sodium bicarb.. Nephrology and cardiology is on board. Discussed with the family at bedside in detail regarding her pancreatic cancer and other multiple medical problems. Considering transferring to rehab and possible palliative care. Patient is otherwise maintained on ceftriaxone for Klebsiella bacteremia. 03/23/2021 Patient is currently lying in the bed. Drowsy and lethargic but able to open her eyes with verbal stimuli. No complaints of chest pain or worsening shortness breath. Otherwise patient is unable to take anything very well. Afebrile. Leg swelling is better. Patient is being current Lasix 20 mg IV every 12. Laboratory p ressure WBC 20.3 hemoglobin 8.8 and platelets 98 BUN 29 creatinine 1.28 alk phos 548. Repeat blood cultures are negative. Patient is being current antibiotics in the form of ceftriaxone for Klebsiella pneumonia bacteremia. REVIEW OF SYSTEMS CONSTITUTIONAL: Denies fever or chills. CARDIOVASCULAR: Denies chest pain, shortness of breath, orthopnea, PND or palpitations. RESPIRATORY: Denies cough. GASTROINTESTINAL: mild abdominal pain, no diarrhea, constipation, nausea or vomiting. MUSCULOSKELETAL: Denies myalgias. NEUROLOGIC: Denies numbness, tingling or weakness. ENDOCRINE: Denies fatigue, weight change, polydipsia or polyurina. GENITOURINARY: Denies burning, hematuria or urgency with micturation. HEMATOLOGIC: Denies history of anemia or bleeding. Current medications reviewed. Objective - Vital Signs Vital signs: Vital Signs Temp 97.9 F 03/23/21 23:45 Pulse 101 H 03/23/21 23:45 Resp 16 03/23/21 23:45 BP 125/69 03/23/21 23:45 Pulse Ox 100 03/23/21 23:45 Intake & Output 03/23/21 03/23/2122 06:59 18:59 06:59 Output Total 350 450 Balance -350 -450 Weight 54.5 kg Output: Urine 350 450 Other: Voiding Method Indwelling Catheter Indwelling Catheter - Exam PHYSICAL EXAMINATION: Patient is lying in the bed comfortably, no acute distress, awake alert and oriented.. HEENT: Normocephalic. Neck is supple. Pupils reactive. Nostrils clear. Oral cavity is moist. Neck reveals no JVD, carotid bruits, or thyromegaly. CHEST EXAMINATION: Trachea is central. Symmetrical expansion. Lung mccrary clear to auscultation and percussion. CARDIAC: Normal S1, S2 with no gallops. No murmurs ABDOMEN: Soft. Mild epigastric abdominal tenderness. Bowel sounds normal. No organomegaly. No abdominal bruits. Extremities:Bilateral 2+ pedal edema. . No clubbing or cyanosis Neurologically awake, alert, oriented x3 with well-coordinated movements. No focal deficits noted Skin: No rash or skin lesions. Psychiatric: Cooperative. Nonsuicidal Musculoskeletal: No joint swelling or deformity. Normal range of motion. - Labs CBC & Chem 7: 03/23/21 08:42 03/23/21 11:27 Labs: Abnormal Lab Results - Last 24 Hours (Table) 03/23/21 03/23/21 Range/Units 08:42 11:27 WBC 20.3 H (3.8-10.6) k/uL RBC 2.88 L (3.80-5.40) m/uL Hgb 8.8 L (11.4-16.0) gm/dL Hct 28.1 L (34.0-46.0) % RDW 19.0 H (11.5-15.5) % Plt Count 98 L (150-450) k/uL Neutrophils # (Manual) 19.89 H (1.3-7.7) k/uL Lymphocytes # (Manual) 0.20 L (1.0-4.8) k/uL Chloride 112 H (98-107) mmol/L Carbon Dioxide 14 L (22-30) mmol/L BUN 29 H (7-17) mg/dL Creatinine 1.28 H (0.52-1.04) mg/dL Calcium 7.7 L (8.4-10.2) mg/dL Alkaline Phosphatase 548 H (38-126) U/L Total Protein 4.6 L (6.3-8.2) g/dL Albumin 2.2 L (3.5-5.0) g/dL Microbiology - Last 24 Hours (Table) 03/21/21 09:05 Blood Culture - Preliminary Blood No Growth after 48 hours Assessment and Plan Assessment: Shortness of breath likely due to acute on chronic CHF with diastolic dysfunction. Recent echocardiogram showed ejection fraction 60 to 65%. Elevated troponin level. Possible demand mismatch Juan Luis negative bacilli// Klebsiella bacteremia Pancreatic cancer without evidence of metastatic disease as per recent imaging. Status post second cycle of chemotherapy on March 07, 2021 Acute kidney injury likely prerenal Hypertension Hyperlipidemia Diabetes type 2 [id number] Hypoalbuminemia and chronic bilateral leg swelling Chronic back pain GERD Anxiety/depression and Currently everyday smoker Moderate to severe protein calorie malnutrition. Plan: Patient was given IV hydration in the ER. Continue with ceftriaxone and follow- up final culture reports .Repeat blood cultures have been negative so far. Patient will be continued on IV Lasix 40-->20 mg twice daily. Cardiology and oncology is on board. Continue with pain medications morphine 15 mg twice daily and bowel regimen. Follow-up closely. Prognosis is guarded at this time. Time with Patient: Greater than 30
[2021-03-24] MEDS: PANTOPRAZOLE 40 MG TABLET PO SCH (06:01)
[2021-03-24] MEDS: MEGESTROL 400 MG/10 ML CUP PO SCH (08:46)
[2021-03-24] MEDS: MAGNESIUM OXIDE 400 MG TAB PO SCH (08:46)
[2021-03-24] MEDS: ASPIRIN 81 MG PO SCH (08:46)
[2021-03-24] MEDS: FOLIC ACID 1 MG TAB PO SCH (08:46)
[2021-03-24] MEDS: ATORVASTATIN 40 MG TAB PO SCH (08:46)
[2021-03-24] MEDS: LACTULOSE 20 GM/30 ML CUP PO SCH (08:46)
[2021-03-24] MEDS: DOCUSATE 100 MG CAP PO SCH (08:46)
[2021-03-24] MEDS: SODIUM BICARBONATE TAB 650 MG TAB PO SCH (08:47)
[2021-03-24] MEDS: MORPHINE SULFATE ER 15 MG TABLET PO SCH (08:47)
[2021-03-24] MEDS: HEPARIN SODIUM,PORCINE/PF 5,000 UNIT/0.5 ML SYRINGE SQ SCH (08:51)
[2021-03-24] MEDS: FUROSEMIDE 10 MG/ML 2 ML VIAL IV SCH (08:51)
--- NOTE | 2021-03-24 09:58 | P.PN ---
Subjective Patient is seen in follow-up for acute kidney injury. Renal function improved. Creatinine 1.28 yesterday. Oral intake poor. Blood pressure stable this morning. Patient is not a reliable historian. Vital signs are stable. HEENT: Head exam is unremarkable. LUNGS: Breath sounds decreased. HEART: Rate and Rhythm are regular. ABDOMEN: Soft, no distention. EXTREMITITES: 1+ edema. Objective - Vital Signs Vital signs: Vital Signs Temp 98.2 F 03/24/21 08:10 Pulse 112 H 03/24/21 08:10 Resp 16 03/24/21 08:10 BP 109/75 03/24/21 08:10 Pulse Ox 100 03/24/21 08:10 Intake & Output 03/23/21 03/24/21 03/24/21 18:59 06:59 18:59 Output Total 450 Balance -450 Weight 56 kg Output: Urine 450 Other: Voiding Method Indwelling Catheter Indwelling Catheter - Labs CBC & Chem 7: 03/23/21 08:42 03/23/21 11:27 Labs: Abnormal Lab Results - Last 24 Hours (Table) 03/23/21 03/23/21 Range/Units 08:42 11:27 Plt Count 98 L (150-450) k/uL Neutrophils # (Manual) 19.89 H (1.3-7.7) k/uL Lymphocytes # (Manual) 0.20 L (1.0-4.8) k/uL Chloride 112 H (98-107) mmol/L Carbon Dioxide 14 L (22-30) mmol/L BUN 29 H (7-17) mg/dL Creatinine 1.28 H (0.52-1.04) mg/dL Calcium 7.7 L (8.4-10.2) mg/dL Alkaline Phosphatase 548 H (38-126) U/L Total Protein 4.6 L (6.3-8.2) g/dL Albumin 2.2 L (3.5-5.0) g/dL Microbiology - Last 24 Hours (Table) 03/21/21 09:05 Blood Culture - Preliminary Blood No Growth after 48 hours Assessment and Plan Plan: Assessment: 1. Acute kidney injury mostly prerenal secondary to cardiorenal syndrome and infection. Creatinine 1.59 as of 03/21/2021 - 1.28 yesterday. Baseline creatinine near 1. No hydronephrosis noted kidney ultrasound. 2. Metabolic acidosis secondary to acute kidney injury. Maintained on oral bicarbonate. 3. Volume overload. 4. Protein calorie malnutrition. 5. Pancreatic cancer. 6. Klebsiella bacteremia on antibiotics. UA suggestive of UTI. 7. Acute on chronic diastolic CHF. Plan: Maintain IV Lasix. Status post IV albumin 03/22/2021. Morning labs pending. Follow-up echocardiogram and CAT scan. Continue to monitor renal function and urine output. Prognosis guarded.
[2021-03-24 10:18] LABS: Calcium 7.8 mg/dL (8.4-10.2); Potassium 3.6 mmol/L (3.5-5.1)
[2021-03-24] MEDS: IPRATROPIUM-ALBUTEROL 3 ML NEB INHALATION SCH ×2 (11:31→12:30)
--- NOTE | 2021-03-24 12:57 | P.PN ---
Subjective Progress Note Date: 03/24/21 HISTORY OF PRESENT ILLNESS: This is a pleasant 65 years old -[place] female with past medical history of pancreatic cancer currently on chemotherapy states she is on her 6th treatment she follows with Dr. Muller, diabetes mellitus, hypertension, hyperlipidemia, osteoarthritis, chronic back pain with sciatica. 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 We are consulted for elevated troponin. She presents to the emergency department with worsening shortness of breath and lower extremity edema. She also had an episode of chest pain last night. Located on the right side of her chest, non radiating non-exertional. No specific aggravating or alleviating factors. She denies associated nausea, diaphoresis, lightheadedness or dizziness. She did have some episodes of diarrhea. She does have shortness of breath and some symptoms of orthopnea. She only sleeps with 1 pillow. No history of CAD, [place], Stroke. She states Dr. Muller recently started her on PO Lasix last week, but she has not picked up the prescription yet. 03/21 Patient seen and examined. Patient's albumin is severely decreased and appears to have severe protein calorie malnutrition with likely component of third spacing. She has been receiving IV Lasix and states that her breathing has somewhat improved. 03/22 Patient seen and examined with brother at bedside. Patient seen bugs in the bed and appears to be having some hallucinations. She denies any chest pain or pressure. She has been maintained on Lasix and also receiving IV albumin with severely decreased albumin noted. This tolerating some small amount of oral intake. She did have significant episodes of bradycardia overnight and therefore metoprolol has been held. 03/23 Blood work shows continued white blood cell count 20, hemoglobin 8.8, platelets 98, no BMP since 03/21 secondary to inability to draw. Urinalysis shows 39 white blood cells, 14 red blood cells. The pressures borderline but controlled. Patient somnolent however answers some questions. Denies any chest pain or pressure. 03/24/2021 Patient examined this morning at the bedside. She is lethargic and nonverbal. She is moaning at the time of my examination. She does not appear to be short of breath. She is on IV lasix 20mg BID IV. PHYSICAL EXAM: VITAL SIGNS: Reviewed. GENERAL: Well-developed in no acute distress. NECK: Supple. No JVD or thyromegaly LUNGS: Respirations even and unlabored. Lungs diminished to auscultation bilaterally. HEART: Regular rate and rhythm. S1 and S2 heard. EXTREMITIES: Normal range of motion. No clubbing or cyanosis. Peripheral pulses intact. 2+ lower extremity edema ASSESSMENT: Acute on chronic heart failure exacerbation with preserved EF Chest pain, atypical, resolved. Elevated troponin, suspect type II mechanism with preserved ejection fraction Acute Kidney Injury Pancreatic cancer currently on chemo Type 2 Diabetes Hypertension Hyperlipidemia Osteroarthritis Chronic back pain Leukocytosis Severe protein calorie malnutrition Bradycardia Preserved EF 55-60% by echo 03/19 PLAN: Patient unable to take oral medications Change IV lasix to daily dosing instead of BID Further recommendations pending patient course Nurse practitioner note has been reviewed by physician. Signing provider agrees with the documented findings, assessment, and plan of care. Objective - Vital Signs Vital signs: Vital Signs Temp 98.3 F 03/24/21 11:25 Pulse 77 03/24/21 12:38 Resp 18 03/24/21 11:25 BP 118/76 03/24/21 11:25 Pulse Ox 98 03/24/21 11:25 Intake & Output 03/23/21 03/24/21 03/24/21 18:59 06:59 18:59 Output Total 450 Balance -450 Weight 56 kg Output: Urine 450 Other: Voiding Method Indwelling Catheter Indwelling Catheter Indwelling Catheter - Labs CBC & Chem 7: 03/23/21 08:42 03/24/21 09:01 Labs: Abnormal Lab Results - Last 24 Hours (Table) 03/24/21 Range/Units 09:01 Chloride 116 H (98-107) mmol/L Carbon Dioxide 18 L (22-30) mmol/L BUN 26 H (7-17) mg/dL Creatinine 1.06 H (0.52-1.04) mg/dL Glucose 102 H (74-99) mg/dL Calcium 7.8 L (8.4-10.2) mg/dL Microbiology - Last 24 Hours (Table) 03/21/21 09:05 Blood Culture - Preliminary Blood No Growth after 72 hours
[2021-03-24] MEDS ORDERED: POTASSIUM CHLORIDE ER 20 MEQ TAB.ER PO STA (13:33)
[2021-03-24 15:23] VITALS: BP 94/74; PULSE 101; TEMP 98.1
--- NOTE | 2021-03-24 22:49 | P.PN ---
Subjective Progress Note Date: 03/24/21 Patient is a 66-year-old female with a known history of pancreatic cancer without evidence of metastatic disease in the recent imaging, status post second cycle of chemotherapy on March 07, 2021, hypertension, hyperlipidemia, osteoarthritis, GERD, lower back pain and sciatica, anxiety/depression and cu rrently everyday smoker presents to ER with complaints of abdominal pain and also shortness of breath. Patient ran out of her pain medications. She does take gabapentin and tramadol at home. Patient is also complaining of shortness of breath. Denies any complaints of cough or sputum production. No fever no chills. No nausea vomiting or diarrhea. Denies any chest pain. Patient states that she has chronic leg swelling and slightly increasing recently. She does take Lasix 40 mg twice daily. Patient was discharged from the hospital on 02/21/2021. She does admit to hospital due to hypoxic respiratory failure and possible pneumonia was considered and cultures have been negative. She was discharged home with oral antibiotics and was saturating above 92% on room air at that time. She was given morphine long-acting 15 mg twice daily with good pain control. Chest x-ray showed no acute cardiopulmonary process. EKG showed sinus rhythm with nonspecific ST-T wave abnormalities. Laboratory data showed WBC 21.5 hemoglobin 9.2 and platelets 103 INR 1.4 Sodium 133 potassium 4.2 chloride 110 bicarb is 15 BUN 26 and creatinine 1.49 AST 25 ALT 16 alk phos 374, bili 0.7 Troponin 0 0.145, 0.14 creatinine 0.140 proBNP 7990 and albumin 1.5 Patient was tachycardic on admission. 03/20/2021 Patient is currently resting in the bed. Awake alert but lethargic unable to get out of bed. Bilateral leg swelling is improving. Patient is also hypoalbuminemic. Seen by oncology and started on appetite stimulant. Pain is better controlled with sustained-release morphine. Patient has been afebrile. No complaints of chest pain. Laboratory data showed WBC 21.4 hemoglobin 10.3 and platelets 131 sodium 136 potassium 4.6 chloride 112 BUN 28 and creatinine 1.41 and calcium 7.6 patient is being continued on Lasix changed to 20 mg IV every 12. Currently maintained antibiotics in the form of ceftriaxone. Blood cultures grew gram-negative bacilli. ID was consulted.. 03/21/2021 Patient is currently resting in the bed. Awake alert and oriented. Lethargic and weak. Patient is being on IV Lasix 20 mg twice daily due to generalized swelling and lower extremity edema. Laboratory data showed WBC 17.7 hemoglobin 9.7 and platelets 116 BUN 27 creatinine 1.59. Patient is being continued on ceftriaxone due to gram-negative bacilli bacteremia/Klebsiella bacteremia repeat cultures was ordered. 03/22/2021 Patient is currently resting in bed. Lethargic and very weak. Denies any complaints of chest pain or shortness of breath. Patient is being continued IV Lasix 20 mg twice daily. Patient received IV albumin and was started on sodium bicarb.. Nephrology and cardiology is on board. Discussed with the family at bedside in detail regarding her pancreatic cancer and other multiple medical problems. Considering transferring to rehab and possible palliative care. Patient is otherwise maintained on ceftriaxone for Klebsiella bacteremia. 03/23/2021 Patient is currently lying in the bed. Drowsy and lethargic but able to open her eyes with verbal stimuli. No complaints of chest pain or worsening shortness breath. Otherwise patient is unable to take anything very well. Afebrile. Leg swelling is better. Patient is being current Lasix 20 mg IV every 12. Laboratory p ressure WBC 20.3 hemoglobin 8.8 and platelets 98 BUN 29 creatinine 1.28 alk phos 548. Repeat blood cultures are negative. Patient is being current antibiotics in the form of ceftriaxone for Klebsiella pneumonia bacteremia. 03/24/2021 Patient is currently lethargic and drowsy and weak. Able to open her eyes with verbal stimuli. Could not communicate. Due to multiple medical problems and altered mental status discussed with family regarding treatment goals and family would like to be transferred to comfort care and hospice care consult. Hospice services consult placed. Laboratory data and vitals reviewed. Review of systems could not be obtained from the patient. Current medications reviewed. Objective - Vital Signs Vital signs: Vital Signs Temp 98.1 F 03/24/21 15:15 Pulse 101 H 03/24/21 15:15 Resp 15 03/24/21 19:48 BP 94/74 03/24/21 15:15 Pulse Ox 100 03/24/21 15:15 Intake & Output 03/24/21 03/24/21 03/25/21 06:59 18:59 06:59 Output Total 450 Balance -450 Weight 56 kg Output: Urine 450 Other: Voiding Method Indwelling Catheter Indwelling Catheter - Exam PHYSICAL EXAMINATION: Patient is lying in the bed comfortably, no acute distress, lethargic not comminicating. HEENT: Normocephalic. Neck is supple. Pupils reactive. Nostrils clear. Oral cavity is moist. Neck reveals no JVD, carotid bruits, or thyromegaly. CHEST EXAMINATION: Trachea is central. Symmetrical expansion..bibasilar diminished sounds. CARDIAC: Normal S1, S2 with no gallops. No murmurs ABDOMEN: Soft. Mild epigastric abdominal tenderness. Bowel sounds present. No organomegaly. No abdominal bruits. Extremities:Bilateral 2+ pedal edema. . No clubbing or cyanosis Neurologically . confused and altered. No gross focal deficits noted Skin: No rash or skin lesions. Psychiatric: could not be assesed Musculoskeletal: No joint swelling or deformity. - Labs CBC & Chem 7: 03/23/21 08:42 03/24/21 09:01 Labs: Abnormal Lab Results - Last 24 Hours (Table) 03/24/21 Range/Units 09:01 Chloride 116 H (98-107) mmol/L Carbon Dioxide 18 L (22-30) mmol/L BUN 26 H (7-17) mg/dL Creatinine 1.06 H (0.52-1.04) mg/dL Glucose 102 H (74-99) mg/dL Calcium 7.8 L (8.4-10.2) mg/dL Microbiology - Last 24 Hours (Table) 03/21/21 09:05 Blood Culture - Preliminary Blood No Growth after 72 hours Assessment and Plan Assessment: Shortness of breath likely due to acute on chronic CHF with diastolic dysfunction. Recent echocardiogram showed ejection fraction 60 to 65%. Elevated troponin level. Possible demand mismatch Juan Luis negative bacilli// Klebsiella bacteremia Pancreatic cancer without evidence of metastatic disease as per recent imaging. Status post second cycle of chemotherapy on March 07, 2021 Acute kidney injury likely prerenal Hypertension Hyperlipidemia Diabetes type 2 [id number] Hypoalbuminemia and chronic bilateral leg swelling Chronic back pain GERD Anxiety/depression and Currently everyday smoker Moderate to severe protein calorie malnutrition. Plan: Patient was given IV hydration in the ER. Continue with ceftriaxone and follow- up final culture reports .Repeat blood cultures have been negative so far. Patient will be continued on IV Lasix 40-->20 mg twice daily. Cardiology and oncology has seen the pt. Continue with pain medications morphine 15 mg twice daily and bowel regimen. Follow-up closely. Prognosis is poor. Time with Patient: Greater than 30
[2021-03-25 00:23] VITALS: RESP 12
[2021-03-25] MEDS ORDERED: FUROSEMIDE 10 MG/ML 2 ML VIAL IV SCH (09:00)
--- NOTE | 2021-03-26 12:21 | ECHOF ---
Referral Reason:Repeat, shortness of breath, elevated troponin MEASUREMENTS -------- HEIGHT: 170.2 cm WEIGHT: 52.2 kg BP: IVSd: 1.2 cm (0.6 - 1.1) LVIDd: 3.1 cm (3.9 - 5.3) LVPWd: 0.9 cm (0.6 - 1.1) IVSs: 1.6 cm LVIDs: 1.7 cm LVPWs: 1.6 cm FINDINGS -------- Limited Study The left ventricular size is normal. There is mild concentric left ventricular hypertrophy. Overa ll left ventricular systolic function is normal with, an EF between 55 - 60 %. There is a small, generalized pericardial effusion present. Large Pleural Effusion. CONCLUSIONS -------- 1. The left ventricular size is normal. 2. There is mild concentric left ventricular hypertrophy. 3. Overall left ventricular systolic function is normal with, an EF between 55 - 60 %. 4. There is a small, generalized pericardial effusion present. 5. Large Pleural Effusion. JOB SUPERINTENDENT: Samantha Park [facility]
--- NOTE | 2021-03-27 23:02 | P.DS ---
Providers Date of admission: 03/18/21 20:45 Expected date of discharge: 03/24/21 Attending physician: Yvrose Brito Consults: 03/18/21 20:44 Consult Physician Urgent Consulting Provider: [facility] Consult Reason/Comments: Elevated troponin Do you want consulting provider notified?: Yes Consult Physician Urgent Consulting Provider: Anand Muller Consult Reason/Comments: Pancreatic cancer Do you want consulting provider notified?: Yes 03/21/21 00:35 Consult Physician Routine Consulting Provider: Key Woodward Consult Reason/Comments: Gram-negative bacteremia Do you want consulting provider notified?: Yes, Notify in am 03/21/21 13:34 Consult Physician Routine Consulting Provider: Lisa Franks Consult Reason/Comments: ARF, malnutrition, Failure to thrive Do you want consulting provider notified?: Yes Primary care physician: [facility] Course: Shortness of breath likely due to acute on chronic CHF with diastolic dysfunction. Recent echocardiogram showed ejection fraction 60 to 65%. Elevated troponin level. Possible demand mismatch Juan Luis negative bacilli// Klebsiella bacteremia Pancreatic cancer without evidence of metastatic disease as per recent imaging. Status post second cycle of chemotherapy on March 07, 2021 Acute kidney injury likely prerenal Hypertension Hyperlipidemia Diabetes type 2 [id number] Hypoalbuminemia and chronic bilateral leg swelling Chronic back pain GERD Anxiety/depression and Currently everyday smoker Moderate to severe protein calorie malnutrition. Patient is a 66-year-old female with a known history of pancreatic cancer without evidence of metastatic disease in the recent imaging, status post second cycle of chemotherapy on March 07, 2021, hypertension, hyperlipidemia, ost eoarthritis, GERD, lower back pain and sciatica, anxiety/depression and currently everyday smoker presents to ER with complaints of abdominal pain and also shortness of breath. Patient ran out of her pain medications. She does take gabapentin and tramadol at home. Patient is also complaining of shortness of breath. Denies any complaints of cough or sputum production. No fever no chills. No nausea vomiting or diarrhea. Denies any chest pain. Patient states that she has chronic leg swelling and slightly increasing recently. She does take Lasix 40 mg twice daily. Patient was discharged from the hospital on 02/21/2021. She does admit to hospital due to hypoxic respiratory failure and possible pneumonia was considered and cultures have been negative. She was discharged home with oral antibiotics and was saturating above 92% on room air at that time. She was given morphine long-acting 15 mg twice daily with good pain control. Chest x-ray showed no acute cardiopulmonary process. EKG showed sinus rhythm with nonspecific ST-T wave abnormalities. Laboratory data showed WBC 21.5 hemoglobin 9.2 and platelets 103 INR 1.4 Sodium 133 potassium 4.2 chloride 110 bicarb is 15 BUN 26 and creatinine 1.49 AST 25 ALT 16 alk phos 374, bili 0.7 Troponin 0 0.145, 0.14 creatinine 0.140 proBNP 7990 and albumin 1.5 Patient was tachycardic on admission. 03/20/2021 Patient is currently resting in the bed. Awake alert but lethargic unable to get out of bed. Bilateral leg swelling is improving. Patient is also hypoalbuminemic. Seen by oncology and started on appetite stimulant. Pain is better controlled with sustained-release morphine. Patient has been afebrile. No complaints of chest pain. Laboratory data showed WBC 21.4 hemoglobin 10.3 and platelets 131 sodium 136 potassium 4.6 chloride 112 BUN 28 and creatinine 1.41 and calcium 7.6 patient is being continued on Lasix changed to 20 mg IV every 12. Currently maintained antibiotics in the form of ceftriaxone. Blood cultures gre w gram-negative bacilli. ID was consulted.. 03/21/2021 Patient is currently resting in the bed. Awake alert and oriented. Lethargic and weak. Patient is being on IV Lasix 20 mg twice daily due to generalized swelling and lower extremity edema. Laboratory data showed WBC 17.7 hemoglobin 9.7 and platelets 116 BUN 27 creatinine 1.59. Patient is being continued on ceftriaxone due to gram-negative bacilli bacteremia/Klebsiella bacteremia repeat cultures was ordered. 03/22/2021 Patient is currently resting in bed. Lethargic and very weak. Denies any complaints of chest pain or shortness of breath. Patient is being continued IV Lasix 20 mg twice daily. Patient received IV albumin and was started on sodium bicarb.. Nephrology and cardiology is on board. Discussed with the family at bedside in detail regarding her pancreatic cancer and other multiple medical problems. Considering transferring to rehab and possible palliative care. Patient is otherwise maintained on ceftriaxone for Klebsiella bacteremia. 03/23/2021 Patient is currently lying in the bed. Drowsy and lethargic but able to open her eyes with verbal stimuli. No complaints of chest pain or worsening shortness breath. Otherwise patient is unable to take anything very well. Afebrile. Leg swelling is better. Patient is being current Lasix 20 mg IV every 12. Laboratory pressure WBC 20.3 hemoglobin 8.8 and platelets 98 BUN 29 creatinine 1.28 alk phos 548. Repeat blood cultures are negative. Patient is being current antibiotics in the form of ceftriaxone for Klebsiella pneumonia bacteremia. 03/24/2021 Patient is currently lethargic and drowsy and weak. Able to open her eyes with verbal stimuli. Could not communicate. Due to multiple medical problems and altered mental status discussed with family regarding treatment goals and family would like to be transferred to comfort care and hospice care consult. Hospice services consult placed. Laboratory data and vitals reviewed. Patient was was transferred to hospice care. Continued on pain management with morphine iv. Discharge vitals reviewed and physical examination was done. Patient Condition at Discharge: Poor Plan - Discharge Summary Discharge Rx Participant: Yes New Discharge Prescriptions: No Action Docusate [Colace] 200 mg PO DAILY #30 cap Magnesium Oxide [Mag-Ox] 400 mg PO BID 30 Days #60 tab Pantoprazole Sodium [Protonix] 40 mg PO DAILY #30 tab Folic Acid 1 mg PO DAILY #30 tab Furosemide [Lasix] 40 mg PO BID #60 tablet lisinopriL 40 mg PO DAILY Potassium Chloride ER [K-Dur 10] 10 meq PO BID Gabapentin [Neurontin] 300 mg PO BID traMADol HCL 50 mg PO Q6H PRN PRN Reason: Pain Lactulose 20 gm PO DAILY 4 Days #120 ml Ondansetron HCl [Zofran] 4 mg PO Q6H PRN PRN Reason: Nausea And Vomiting Discharge Medication List Docusate [Colace] 200 mg PO DAILY #30 cap 01/06/21 [Rx] Gabapentin [Neurontin] 300 mg PO BID 02/08/21 [History] Potassium Chloride ER [K-Dur 10] 10 meq PO BID 02/08/21 [History] traMADol HCL 50 mg PO Q6H PRN 02/08/21 [History] Lactulose 20 gm PO DAILY 4 Days #120 ml 02/12/21 [Rx] Magnesium Oxide [Mag-Ox] 400 mg PO BID 30 Days #60 tab 02/12/21 [Rx] Pantoprazole Sodium [Protonix] 40 mg PO DAILY #30 tab 02/12/21 [Rx] Folic Acid 1 mg PO DAILY #30 tab 02/21/21 [Rx] Furosemide [Lasix] 40 mg PO BID #60 tablet 02/21/21 [Rx] Ondansetron HCl [Zofran] 4 mg PO Q6H PRN 03/18/21 [History] lisinopriL 40 mg PO DAILY 03/18/21 [History] Follow up Appointment(s)/Referral(s): Handy Alvarez MD [STAFF PHYSICIAN] - 2 Weeks [facility] [NON-STAFF] - Sheron Lorenz MD [Primary Care Provider] - 1-2 days [facility] [NON-STAFF] - Discharge Disposition: HOME WITH HOSPICE
--- NOTE | 2021-04-01 08:16 | CDI ---
Documentation Clarification Form Date: 03/20/2021 03:15:00 PM From: Nannette MunguiaSHABNAM, CCDS Admit Date: 03/18/2021 08:45:00 PM Patient Name: Nannette Morel Visit Number: [id number] Discharge Date: 03/24/2021 03:38:00 PM ATTENTION: The Clinical Documentation Specialists (CDI) and [facility] Coding Staff appreciate your assistance in clarifying documentation. Please respond to the clarification below the line at the bottom and electronically sign. The CDI & [facility] Coding staff will review the response and follow-up if needed. Please note: Queries are made part of the Legal Health Record. If you have any questions, please contact the author of this message via ITS. Dr. Curt Zamora: Please respond to this query in your documentation or on this query form prior to signing: Per the 03/19 Cardiology Consult: Elevated Troponin, unable to rule out acute ischemic event at this time. Additional clarification regarding the acute ischemic event is requested. History/Risk Factors per the 03/19 H/P: Pancreatic Cancer in chemotherapy, Hypertension, Hyperlipidemia, NIDDM II, Chronic back pain, Chronic bilateral leg swelling, GERD, Anxiety, Depression, current smoker. Clinical Indicators: Presented to the ED on 03/18 via EMS with SOB. Has Pancreatic Cancer, ran out of her medicine yesterday, now complaining of SOB. Admit with Elevated Troponins, Hypomagnesemia, Leukocytosis, Renal Insufficiency and Pancreatic Cancer. 03/18 VS: T 97.7, P 106, R 18 (sob, cough), BP 101/76, PO 96 RA - 2Lnc, BMI: 17.4 03/18 LAB: WBC 21.5, Hgb 9.2, Hct 29.1, Pl Ct 103, Neut 19.6; PT 13.9, INR 1.4, APTT 32.6; Na 133, Cl 110, CO2 15, BUN 26, Creatinine 1.49, Glucose 108, Calcium 7.1, Magnesium 1.5, Ak Phos 374, Troponin 0.145, 0.143, 0.140; BNP 7990, total Protein 4.3, Albumin 1.5. 03/18 CXR: No acute cardiopulmonary disease/process. 03/18 EKG: R 97 Sinus rhythm with marked sinus arrhythmia with occasional PVCs, ST & T wave abnormality, consider anterior ischemia. Treatment 03/18: Daily weight, Blood glucose monitoring, I&Os, Heart Healthy Diet, O2 2Lnc, IV Toradol, IV Mag Sulf/Dextrose, IV Rocephin, IV Na Cl 1,000 mls @ 75 mls/hr q13H, IV Lasix, IV Zofran. Cardiology orders: Start Aspirin, Statin, Beta Massimo; IV Lasix 40 mg BID, Monitor I&O, daily weights, renal function and electrolytes. Please clarify the following: [ ] NSTEMI (type 1) [ x] Type II CA due to (please specify etiology): ____Hypoxemia [ ] Other, please specify: [ ] Unable to determine (Template Last Revised: May 2020) MTDD
== END 2021-03-24 15:38 | disposition hospice, home (50) | DRG 280 ==
LOC: EC 18:26 → 3SCARD 20:45
PROVIDERS: ADMIT Hospitalist; ATTEND Hospitalist
DX: I13.0 Hypertensive heart and chronic kidney disease with heart failure and stage 1 through stage 4 chronic kidney disease, or unspecified chronic kidney disease (principal); I50.33 Acute on chronic diastolic (congestive) heart failure; I21.A1 Myocardial infarction type 2; E43 Unspecified severe protein-calorie malnutrition; C25.9 Malignant neoplasm of pancreas, unspecified; D68.9 Coagulation defect, unspecified; Z68.1 Body mass index [BMI] 19.9 or less, adult; E87.2 Acidosis; K86.1 Other chronic pancreatitis; N17.9 Acute kidney failure, unspecified; R18.8 Other ascites; I49.3 Ventricular premature depolarization; E78.5 Hyperlipidemia, unspecified; E83.42 Hypomagnesemia; F17.210 Nicotine dependence, cigarettes, uncomplicated; F32.A Depression, unspecified; F41.9 Anxiety disorder, unspecified; K76.9 Liver disease, unspecified; R09.02 Hypoxemia; Z20.822 Contact with and (suspected) exposure to COVID-19; E88.09 Other disorders of plasma-protein metabolism, not elsewhere classified; G89.29 Other chronic pain; Z87.01 Personal history of pneumonia (recurrent); B96.1 Klebsiella pneumoniae [K. pneumoniae] as the cause of diseases classified elsewhere; K21.9 Gastro-esophageal reflux disease without esophagitis; M19.90 Unspecified osteoarthritis, unspecified site; M54.30 Sciatica, unspecified side; M81.0 Age-related osteoporosis without current pathological fracture; Z79.899 Other long term (current) drug therapy; Z80.0 Family history of malignant neoplasm of digestive organs; Z92.21 Personal history of antineoplastic chemotherapy; Z98.890 Other specified postprocedural states; Z98.51 Tubal ligation status
CPT/HCPCS: 36415; 71045; 71046; 76770; 78580; 80048; 80053; 81001; 83605; 83735; 83880; 84145; 84484; 85025; 85610; 85730; 87040; 87077; 87186; 87635; 93005; 93308; 94640; 96365; 96375; 99285

== ENCOUNTER 2021-03-24 15:12 | Inpatient (IN) | payer MEDICAID ==
[2021-03-24] MEDS ORDERED: GLYCOPYRROLATE 0.2 MG/ML 2 ML VIAL IVP PRN (15:17)
[2021-03-24] MEDS ORDERED: ONDANSETRON 4 MG/2 ML VIAL IVP PRN (15:17)
[2021-03-24] MEDS ORDERED: ATROPINE OPHTH SOLN 1% 5ML BTL SUBLINGUAL PRN (15:17)
[2021-03-24] MEDS ORDERED: ACETAMINOPHEN SUPPOSITORY 650 MG SUPP RECTAL PRN (15:17)
[2021-03-24] MEDS ORDERED: HALOPERIDOL LACTATE 5 MG/ML 1 ML VIAL IM PRN (15:17)
[2021-03-24] MEDS ORDERED: HYOSCYAMINE ORAL DROPS 1.875 MG/15 ML BOTTLE PO PRN (15:19)
[2021-03-24] MEDS: MORPHINE SULFATE (100 MG/2 ML) 100 MG in SODIUM CHLORIDE 0.9% 100 ML IV SCH (16:11)
[2021-03-24] MEDS: SCOPOLAMINE 1.5MG/72HR PATCH TRANSDERM SCH (16:19)
[2021-03-24] MEDS: LORazepam 2 MG/ML INJ IV PRN (16:26)
[2021-03-25] MEDS: MORPHINE SULFATE 2 MG/ML SYRINGE IV PRN ×4 (09:39→17:07)
[2021-03-25] MEDS: MORPHINE SULFATE (100 MG/2 ML) 100 MG in SODIUM CHLORIDE 0.9% 100 ML IV SCH (23:07)
[2021-03-26] MEDS: MORPHINE SULFATE (100 MG/2 ML) 100 MG in SODIUM CHLORIDE 0.9% 100 ML IV SCH (15:46)
[2021-03-27] MEDS: MORPHINE SULFATE (100 MG/2 ML) 100 MG in SODIUM CHLORIDE 0.9% 100 ML IV SCH ×5 (01:18→22:30)
[2021-03-27] MEDS: MORPHINE SULFATE 2 MG/ML SYRINGE IV PRN ×2 (04:15→04:36)
[2021-03-27] MEDS: LORazepam 2 MG/ML INJ IV PRN (04:59)
[2021-03-27] MEDS: SCOPOLAMINE 1.5MG/72HR PATCH TRANSDERM SCH (15:15)
--- NOTE | 2021-03-27 21:28 | P.PN ---
Subjective Progress Note Date: 03/27/21 Patient is a 66-year-old female with a known history of pancreatic cancer without evidence of metastatic disease in the recent imaging, status post second cycle of chemotherapy on March 07, 2021, hypertension, hyperlipidemia, osteoarthritis, GERD, lower back pain and sciatica, anxiety/depression and cu rrently everyday smoker presents to ER with complaints of abdominal pain and also shortness of breath. Patient ran out of her pain medications. She does take gabapentin and tramadol at home. Patient is also complaining of shortness of breath. Denies any complaints of cough or sputum production. No fever no chills. No nausea vomiting or diarrhea. Denies any chest pain. Patient states that she has chronic leg swelling and slightly increasing recently. She does take Lasix 40 mg twice daily. Patient was discharged from the hospital on 02/21/2021. She does admit to hospital due to hypoxic respiratory failure and possible pneumonia was considered and cultures have been negative. She was discharged home with oral antibiotics and was saturating above 92% on room air at that time. She was given morphine long-acting 15 mg twice daily with good pain control. Chest x-ray showed no acute cardiopulmonary process. EKG showed sinus rhythm with nonspecific ST-T wave abnormalities. Laboratory data showed WBC 21.5 hemoglobin 9.2 and platelets 103 INR 1.4 Sodium 133 potassium 4.2 chloride 110 bicarb is 15 BUN 26 and creatinine 1.49 AST 25 ALT 16 alk phos 374, bili 0.7 Troponin 0 0.145, 0.14 creatinine 0.140 proBNP 7990 and albumin 1.5 Patient was tachycardic on admission. 03/20/2021 Patient is currently resting in the bed. Awake alert but lethargic unable to get out of bed. Bilateral leg swelling is improving. Patient is also hypoalbuminemic. Seen by oncology and started on appetite stimulant. Pain is better controlled with sustained-release morphine. Patient has been afebrile. No complaints of chest pain. Laboratory data showed WBC 21.4 hemoglobin 10.3 and platelets 131 sodium 136 potassium 4.6 chloride 112 BUN 28 and creatinine 1.41 and calcium 7.6 patient is being continued on Lasix changed to 20 mg IV every 12. Currently maintained antibiotics in the form of ceftriaxone. Blood cultures grew gram-negative bacilli. ID was consulted.. 03/21/2021 Patient is currently resting in the bed. Awake alert and oriented. Lethargic and weak. Patient is being on IV Lasix 20 mg twice daily due to generalized swelling and lower extremity edema. Laboratory data showed WBC 17.7 hemoglobin 9.7 and platelets 116 BUN 27 creatinine 1.59. Patient is being continued on ceftriaxone due to gram-negative bacilli bacteremia/Klebsiella bacteremia repeat cultures was ordered. 03/22/2021 Patient is currently resting in bed. Lethargic and very weak. Denies any complaints of chest pain or shortness of breath. Patient is being continued IV Lasix 20 mg twice daily. Patient received IV albumin and was started on sodium bicarb.. Nephrology and cardiology is on board. Discussed with the family at bedside in detail regarding her pancreatic cancer and other multiple medical problems. Considering transferring to rehab and possible palliative care. Patient is otherwise maintained on ceftriaxone for Klebsiella bacteremia. 03/23/2021 Patient is currently lying in the bed. Drowsy and lethargic but able to open her eyes with verbal stimuli. No complaints of chest pain or worsening shortness breath. Otherwise patient is unable to take anything very well. Afebrile. Leg swelling is better. Patient is being current Lasix 20 mg IV every 12. Laboratory pressure WBC 20.3 hemoglobin 8.8 and platelets 98 BUN 29 creatinine 1.28 alk phos 548. Repeat blood cultures are negative. Patient is being current antibiotics in the form of ceftriaxone for Klebsiella pneumonia bacteremia. 03/24/2021 Patient is currently lethargic and drowsy and weak. Able to open her eyes with verbal stimuli. Could not communicate. Due to multiple medical problems and altered mental status discussed with family regarding treatment goals and family would like to be transferred to comfort care and hospice care consult. Hospice services consult placed. Laboratory data and vitals reviewed. Patient was was transferred to hospice care. Continued on pain management with morphine iv. 03/25/2021 Patient is under hospice care. Continue IV morphine and continue with comfort measures. 03/26/2021 Patient is morphine drip and scopolamine and Zofran as needed. [facility] is following. Lying in the bed comfortably. Does not appear to be any distress.. 03/27/2021 Patient is resting in the bed. He appears to be comfortable. Continue morphine drip and other comfort measures. Objective - Vital Signs Vital signs: Vital Signs Temp 98.1 F 01/03/22 16:00 Pulse 112 H 03/26/21 10:58 Resp 15 03/27/21 16:00 BP 116/75 03/26/21 08:00 Pulse Ox 93 L 03/26/21 08:00 Intake & Output 03/27/21 03/27/21 03/28/21 06:59 18:59 06:59 Intake Total 170.893 204.290 Balance 170.893 204.290 Intake: Intake, IV Titration 170.893 204.290 Amount Morphine Sulfate (100 mg/ 170.893 204.290 2 ml) 100 mg In Sodium Chloride 0.9% 100 ml @ 1 MG/HR 1.02 mls/hr IV . Q24H [facility] Rx#:[id number] - Exam PHYSICAL EXAMINATION: Patient is lying in the bed comfortably, no acute distress, lethargic not comminicating. not Following commands. HEENT: Normocephalic. Neck is supple. Pupils reactive. Nostrils clear. Oral cavity is moist. Neck reveals no JVD, carotid bruits, or thyromegaly. CHEST EXAMINATION: Trachea is central. shallow breathing..bibasilar diminished sounds. CARDIAC: Normal S1, S2 with no gallops. No murmurs ABDOMEN: Soft.. Bowel sounds present. No organomegaly. No abdominal bruits. Extremities:Bilateral 2+ pedal edema. . No clubbing or cyanosis Neurologically . confused and altered. No gross focal deficits noted Skin: No rash or skin lesions. Psychiatric: could not be assesed Musculoskeletal: No joint swelling or deformity. Assessment and Plan Assessment: Pancreatic cancer without evidence of metastatic disease as per recent imaging. Status post second cycle of chemotherapy on March 07, 2021 Gram negative bacilli// Klebsiella bacteremia Shortness of breath likely due to acute on chronic CHF with diastolic dysfunction. Recent echocardiogram showed ejection fraction 60 to 65%. Elevated troponin level. Possible demand mismatch Acute kidney injury likely prerenal Hypertension Hyperlipidemia Diabetes type 2 [id number] Hypoalbuminemia and chronic bilateral leg swelling Chronic back pain GERD Anxiety/depression and Currently everyday smoker Moderate to severe protein calorie malnutrition. Plan: Will be continued morphine drip and comfort measures. Hospice care is following. updated family.
--- NOTE | 2021-03-27 23:05 | P.HPIM ---
History of Present Illness H&P Date: 03/25/21 Chief Complaint: SOB Patient is a 66-year-old female with a known history of pancreatic cancer without evidence of metastatic disease in the recent imaging, status post second cycle of chemotherapy on March 07, 2021, hypertension, hyperlipidemia, osteoarthritis, GERD, lower back pain and sciatica, anxiety/depression and currently everyday smoker presents to ER with complaints of abdominal pain and also shortness of breath. Patient ran out of her pain medications. She does take gabapentin and tramadol at home. Patient is also complaining of shortness of breath. Denies any complaints of cough or sputum production. No fever no chills. No nausea vomiting or diarrhea. Denies any chest pain. Patient states that she has chronic leg swelling and slightly increasing recently. She does take Lasix 40 mg twice daily. Patient was discharged from the hospital on 02/21/2021. She does admit to hospital due to hypoxic respiratory failure and possible pneumonia was considered and cultures have been negative. She was discharged home with oral antibiotics and was saturating above 92% on room air at that time. She was given morphine long-acting 15 mg twice daily with good pain control. Chest x-ray showed no acute cardiopulmonary process. EKG showed sinus rhythm with nonspecific ST-T wave abnormalities. Laboratory data showed WBC 21.5 hemoglobin 9.2 and platelets 103 INR 1.4 Sodium 133 potassium 4.2 chloride 110 bicarb is 15 BUN 26 and creatinine 1.49 AST 25 ALT 16 alk phos 374, bili 0.7 Troponin 0 0.145, 0.14 creatinine 0.140 proBNP 7990 and albumin 1.5 Patient was tachycardic on admission. 03/20/2021 Patient is currently resting in the bed. Awake alert but lethargic unable to get out of bed. Bilateral leg swelling is improving. Patient is also hypoalbuminemic. Seen by oncology and started on appetite stimulant. Pain is better controlled with sustained-release morphine. Patient has been afebrile. No complaints of chest pain. Laboratory data showed WBC 21.4 hemoglobin 10.3 and platelets 131 sodium 136 potassium 4.6 chloride 112 BUN 28 and creatinine 1.41 and calcium 7.6 patient is being continued on Lasix changed to 20 mg IV every 12. Currently maintained antibiotics in the form of ceftriaxone. Blood cultures grew gram-negative bacilli. ID was consulted.. 03/21/2021 Patient is currently resting in the bed. Awake alert and oriented. Lethargic and weak. Patient is being on IV Lasix 20 mg twice daily due to generalized swelling and lower extremity edema. Laboratory data showed WBC 17.7 hemoglobin 9.7 and platelets 116 BUN 27 creatinine 1.59. Patient is being continued on ceftriaxone due to gram-negative bacilli bacteremia/Klebsiella bacteremia repeat cultures was ordered. 03/22/2021 Patient is currently resting in bed. Lethargic and very weak. Denies any complaints of chest pain or shortness of breath. Patient is being continued IV Lasix 20 mg twice daily. Patient received IV albumin and was started on sodium bicarb.. Nephrology and cardiology is on board. Discussed with the family at bedside in detail regarding her pancreatic cancer and other multiple medical problems. Considering transferring to rehab and possible palliative care. Patient is otherwise maintained on ceftriaxone for Klebsiella bacteremia. 03/23/2021 Patient is currently lying in the bed. Drowsy and lethargic but able to open her eyes with verbal stimuli. No complaints of chest pain or worsening shortness breath. Otherwise patient is unable to take anything very well. Afebrile. Leg swelling is better. Patient is being current Lasix 20 mg IV every 12. Laboratory pressure WBC 20.3 hemoglobin 8.8 and platelets 98 BUN 29 creatinine 1.28 alk phos 548. Repeat blood cultures are negative. Patient is being current antibiotics in the form of ceftriaxone for Klebsiella pneumonia bacteremia. 03/24/2021 Patient is currently lethargic and drowsy and weak. Able to open her eyes with verbal stimuli. Could not communicate. Due to multiple medical problems and altered mental status discussed with family regarding treatment goals and family would like to be transferred to comfort care and hospice care consult. Hospice services consult placed. Laboratory data and vitals reviewed. Patient was was transferred to hospice care. Continued on pain management with morphine iv. 03/25/2021 Patient is under hospice care. Continue IV morphine and continue with comfort measures. Past Medical History Past Medical History: Cancer, GERD/Reflux, Hyperlipidemia, Hypertension, Musculoskeletal Disorder, Osteoarthritis (OA) Additional Past Medical History / Comment(s): Osteoporosis, lower Back Pain, Sciatica. TOLD YEARS AGO SHE HAD HEART MURMUR- NO TX, HX ACUTE BRONCHITIS(SMOKER), August 2020 pancreatic cancer. Current head tremor. Feet, ankles and legs swelling History of Any Multi-Drug Resistant Organisms: None Reported Past Surgical History: Orthopedic Surgery, Tubal Ligation Additional Past Surgical History / Comment(s): 2 pins in right hip-dislocated 1975. Past Anesthesia/Blood Transfusion Reactions: No Reported Reaction Past Psychological History: Anxiety, Depression Smoking Status: Current every day smoker Past Alcohol Use History: None Reported Additional Past Alcohol Use History / Comment(s): Started smoking at age 17(1971), now smokes <1 ppd. Quit drinking August 2020, had been drinking 3-4 beers daily. Past Drug Use History: None Reported Additional Drug Use History / Comment(s): Quit drinking 09/07/20 was drinking 3-4 beers a day - Past Family History Mother Family Medical History: Liver Disease Father Family Medical History: Cancer Additional Family Medical History / Comment(s): Lung or liver cancer. Medications and Allergies Home Medications Medication Instructions Recorded Confirmed Type Docusate [Colace] 200 mg PO DAILY #30 cap 01/06/21 03/18/21 Rx Gabapentin [Neurontin] 300 mg PO BID 02/08/21 03/18/21 History Potassium Chloride ER [K-Dur 10] 10 meq PO BID 02/08/21 03/18/21 History traMADol HCL 50 mg PO Q6H PRN 02/08/21 03/18/21 History Lactulose 20 gm PO DAILY 4 Days #120 ml 02/12/21 03/18/21 Rx Magnesium Oxide [Mag-Ox] 400 mg PO BID 30 Days #60 tab 02/12/21 03/18/21 Rx Pantoprazole Sodium [Protonix] 40 mg PO DAILY #30 tab 02/12/21 03/18/21 Rx Folic Acid 1 mg PO DAILY #30 tab 02/21/21 03/18/21 Rx Furosemide [Lasix] 40 mg PO BID #60 tablet 02/21/21 03/18/21 Rx Ondansetron HCl [Zofran] 4 mg PO Q6H PRN 03/18/21 03/18/21 History lisinopriL 40 mg PO DAILY 03/18/21 03/18/21 History Allergies Allergy/AdvReac Type Severity Reaction Status Date / Time amylase [From Zenpep] AdvReac stomach Verified 03/18/21 18:52 pain erythromycin base AdvReac Nausea Verified 03/18/21 18:52 [Erythromycin Base] gabapentin AdvReac Hallucinati Verified 03/18/21 18:52 ons lipase [From Zenpep] AdvReac stomach Verified 03/18/21 18:52 pain protease [From Zenpep] AdvReac stomach Verified 03/18/21 18:52 pain Physical Exam Vitals: Vital Signs Temp Pulse Resp BP Pulse Ox 03/25/21 11:04 14 03/25/21 08:00 12 03/25/21 03:39 12 03/25/21 00:00 14 03/24/21 20:00 14 03/24/21 16:00 98.1 F 101 H 16 94/74 100 Intake and Output 03/24/21 03/25/21 03/25/21 22:59 06:59 14:59 Intake Total 20.629 Balance 20.629 Intake: Intake, IV Titration 20.629 Amount Morphine Sulfate (100 mg/ 20.629 2 ml) 100 mg In Sodium Chloride 0.9% 100 ml @ 1 MG/HR 1.02 mls/hr IV . Q24H [facility] Rx#:[id number] Other: Weight 56 kg PHYSICAL EXAMINATION: Patient is lying in the bed comfortably, no acute distress, lethargic not comminicating. HEENT: Normocephalic. Neck is supple. Pupils reactive. Nostrils clear. Oral cavity is moist. Neck reveals no JVD, carotid bruits, or thyromegaly. CHEST EXAMINATION: Trachea is central. Symmetrical expansion..bibasilar diminished sounds. CARDIAC: Normal S1, S2 with no gallops. No murmurs ABDOMEN: Soft. Mild epigastric abdominal tenderness. Bowel sounds present. No organomegaly. No abdominal bruits. Extremities:Bilateral 2+ pedal edema. . No clubbing or cyanosis Neurologically . confused and altered. No gross focal deficits noted Skin: No rash or skin lesions. Psychiatric: could not be assesed Musculoskeletal: No joint swelling or deformity. Assessment and Plan Assessment: Pancreatic cancer without evidence of metastatic disease as per recent imaging. Status post second cycle of chemotherapy on March 07, 2021 Shortness of breath likely due to acute on chronic CHF with diastolic dysfunction. Recent echocardiogram showed ejection fraction 60 to 65%. Elevated troponin level. Possible demand mismatch Gram negative bacilli// Klebsiella bacteremia Acute kidney injury likely prerenal Hypertension Hyperlipidemia Diabetes type 2 [id number] Hypoalbuminemia and chronic bilateral leg swelling Chronic back pain GERD Anxiety/depression and Currently everyday smoker Moderate to severe protein calorie malnutrition. Plan: Will be continued morphine drip and comfort measures. Hospice care is following. updated family.
[2021-03-28] MEDS: MORPHINE SULFATE 2 MG/ML SYRINGE IV PRN ×2 (03:51→09:25)
[2021-03-28] MEDS: MORPHINE SULFATE (100 MG/2 ML) 100 MG in SODIUM CHLORIDE 0.9% 100 ML IV SCH ×5 (04:15→18:46)
[2021-03-28 14:30] VITALS: BMI 19.3
--- NOTE | 2021-03-28 18:18 | P.PN ---
Subjective Progress Note Date: 03/28/21 66-year-old female with a known history of pancreatic cancer without evidence of metastatic disease in the recent imaging, status post second cycle of chemotherapy on March 07, 2021, hypertension, hyperlipidemia, osteoarthritis, GERD, lower back pain and sciatica, anxiety/depression and currently everyday smoker presents to ER with complaints of abdominal pain and also shortness of breath. Patient ran out of her pain medications. She does take gabapentin and tramadol at home. Patient is also complaining of shortness of breath. Denies any complaints of cough or sputum production. No fever no chills. No nausea vomiting or diarrhea. Denies any chest pain. Patient states that she has chron ic leg swelling and slightly increasing recently. She does take Lasix 40 mg twice daily. Patient was discharged from the hospital on 02/21/2021. She does admit to hospital due to hypoxic respiratory failure and possible pneumonia was considered and cultures have been negative. She was discharged home with oral antibiotics and was saturating above 92% on room air at that time. She was given morphine long-acting 15 mg twice daily with good pain control. Chest x-ray showed no acute cardiopulmonary process. EKG showed sinus rhythm with nonspecific ST-T wave abnormalities. Laboratory data showed WBC 21.5 hemoglobin 9.2 and platelets 103 INR 1.4 Sodium 133 potassium 4.2 chloride 110 bicarb is 15 BUN 26 and creatinine 1.49 AST 25 ALT 16 alk phos 374, bili 0.7 Troponin 0 0.145, 0.14 creatinine 0.140 proBNP 7990 and albumin 1.5 Patient was tachycardic on admission. Objective - Vital Signs Vital signs: Vital Signs Temp 98.1 F 03/24/21 16:00 Pulse 91 03/28/21 08:00 Resp 12 03/28/21 08:00 BP 116/75 03/26/21 08:00 Pulse Ox 93 L 03/26/21 08:00 Intake & Output 03/27/21 03/28/21 03/28/21 18:59 06:59 18:59 Intake Total 204.290 200.319 165.291 Balance 204.290 200.319 165.291 Intake: Intake, IV Titration 204.290 200.319 165.291 Amount Morphine Sulfate (100 mg/ 204.290 200.319 165.291 2 ml) 100 mg In Sodium Chloride 0.9% 100 ml @ 1 MG/HR 1.02 mls/hr IV . Q24H [facility] Rx#:[id number] Oral 0 - Exam Patient is lying in the bed comfortably, no acute distress, lethargic not comminicating. not Following commands. HEENT: Normocephalic. Neck is supple. Pupils reactive. Nostrils clear. Oral cavity is moist. Neck reveals no JVD, carotid bruits, or thyromegaly. CHEST EXAMINATION: Trachea is central. shallow breathing..bibasilar diminished sounds. CARDIAC: Normal S1, S2 with no gallops. No murmurs ABDOMEN: Soft.. Bowel sounds present. No organomegaly. No abdominal bruits. Extremities:Bilateral 2+ pedal edema. . No clubbing or cyanosis Neurologically . confused and altered. No gross focal deficits noted Assessment and Plan Assessment: Pancreatic cancer without evidence of metastatic disease as per recent imaging. Status post second cycle of chemotherapy on March 07, 2021 Gram negative bacilli// Klebsiella bacteremia Shortness of breath likely due to acute on chronic CHF with diastolic dysfunction. Recent echocardiogram showed ejection fraction 60 to 65%. Elevated troponin level. Possible demand mismatch Acute kidney injury likely prerenal Hypertension Hyperlipidemia Diabetes type 2 [id number] Hypoalbuminemia and chronic bilateral leg swelling Chronic back pain GERD Anxiety/depression and Currently everyday smoker Moderate to severe protein calorie malnutrition. Plan: Will be continued morphine drip and comfort measures. Hospice care is following. updated family.
[2021-03-29] MEDS: MORPHINE SULFATE (100 MG/2 ML) 100 MG in SODIUM CHLORIDE 0.9% 100 ML IV SCH ×5 (01:41→21:50)
[2021-03-29 18:26] VITALS: BP 66/56; TEMP 98.8
[2021-03-30] MEDS: MORPHINE SULFATE (100 MG/2 ML) 100 MG in SODIUM CHLORIDE 0.9% 100 ML IV SCH ×4 (00:45→11:02)
[2021-03-30 15:13] VITALS: PULSE 100; RESP 6
--- NOTE | 2021-03-30 17:19 | P.PN ---
Subjective Progress Note Date: 03/29/21 66-year-old female with a known history of pancreatic cancer without evidence of metastatic disease in the recent imaging, status post second cycle of chemotherapy on March 07, 2021, hypertension, hyperlipidemia, osteoarthritis, GERD, lower back pain and sciatica, anxiety/depression and currently everyday smoker presents to ER with complaints of abdominal pain and also shortness of breath. Patient ran out of her pain medications. She does take gabapentin and tramadol at home. Patient is also complaining of shortness of breath. Denies any complaints of cough or sputum production. No fever no chills. No nausea vomiting or diarrhea. Denies any chest pain. Patient states that she has chron ic leg swelling and slightly increasing recently. She does take Lasix 40 mg twice daily. Patient was discharged from the hospital on 02/21/2021. She does admit to hospital due to hypoxic respiratory failure and possible pneumonia was considered and cultures have been negative. She was discharged home with oral antibiotics and was saturating above 92% on room air at that time. She was given morphine long-acting 15 mg twice daily with good pain control. Chest x-ray showed no acute cardiopulmonary process. EKG showed sinus rhythm with nonspecific ST-T wave abnormalities. Laboratory data showed WBC 21.5 hemoglobin 9.2 and platelets 103 INR 1.4 Sodium 133 potassium 4.2 chloride 110 bicarb is 15 BUN 26 and creatinine 1.49 AST 25 ALT 16 alk phos 374, bili 0.7 Troponin 0 0.145, 0.14 creatinine 0.140 proBNP 7990 and albumin 1.5 Patient was tachycardic on admission. 03/29/2021 Patient is seen and evaluated at bedside; remains comfortable; unresponsive. Comfort care measures in place Objective - Vital Signs Vital signs: Vital Signs Temp 98.1 F 03/24/21 16:00 Pulse 94 03/29/21 03:30 Resp 8 L 03/29/21 06:16 BP 116/75 03/26/21 08:00 Pulse Ox 93 L 03/26/21 08:00 Intake & Output 03/28/21 03/29/21 03/29/21 18:59 06:59 18:59 Intake Total 392.156 204.000 102 Output Total 125 Balance 392.156 79.000 102 Weight 56 kg Intake: Intake, IV Titration 392.156 204.000 102 Amount Morphine Sulfate (100 mg/ 392.156 204.000 102 2 ml) 100 mg In Sodium Chloride 0.9% 100 ml @ 1 MG/HR 1.02 mls/hr IV . Q24H [facility] Rx#:[id number] Oral 0 Output: Urine 125 - Exam Patient is lying in the bed comfortably, no acute distress, lethargic not comminicating. not Following commands. HEENT: Normocephalic. Neck is supple. Pupils reactive. Nostrils clear. Oral cavity is moist. Neck reveals no JVD, carotid bruits, or thyromegaly. CHEST EXAMINATION: Trachea is central. shallow breathing..bibasilar diminished sounds. CARDIAC: Normal S1, S2 with no gallops. No murmurs ABDOMEN: Soft.. Bowel sounds present. No organomegaly. No abdominal bruits. Extremities:Bilateral 2+ pedal edema. . No clubbing or cyanosis Neurologically . confused and altered. No gross focal deficits noted Assessment and Plan Assessment: Pancreatic cancer without evidence of metastatic disease as per recent imaging. Status post second cycle of chemotherapy on March 07, 2021 Gram negative bacilli// Klebsiella bacteremia Shortness of breath likely due to acute on chronic CHF with diastolic dysfunction. Recent echocardiogram showed ejection fraction 60 to 65%. Elevated troponin level. Possible demand mismatch Acute kidney injury likely prerenal Hypertension Hyperlipidemia Diabetes type 2 [id number] Hypoalbuminemia and chronic bilateral leg swelling Chronic back pain GERD Anxiety/depression and Currently everyday smoker Moderate to severe protein calorie malnutrition. Plan: Will be continued morphine drip and comfort measures. Hospice care is foll owing. updated family.
== END 2021-03-30 16:08 | disposition expired | DRG 951 ==
LOC: 3SCARD 15:39
PROVIDERS: ADMIT Hospitalist; ATTEND Hospitalist
DX: Z51.5 Encounter for palliative care (principal); E43 Unspecified severe protein-calorie malnutrition; I50.33 Acute on chronic diastolic (congestive) heart failure; C25.9 Malignant neoplasm of pancreas, unspecified; Z68.1 Body mass index [BMI] 19.9 or less, adult; R78.81 Bacteremia; I24.8 Other forms of acute ischemic heart disease; Z66 Do not resuscitate; B96.1 Klebsiella pneumoniae [K. pneumoniae] as the cause of diseases classified elsewhere; E11.9 Type 2 diabetes mellitus without complications; E78.5 Hyperlipidemia, unspecified; F17.210 Nicotine dependence, cigarettes, uncomplicated; F32.A Depression, unspecified; F41.9 Anxiety disorder, unspecified; E88.09 Other disorders of plasma-protein metabolism, not elsewhere classified; G89.29 Other chronic pain; I11.0 Hypertensive heart disease with heart failure; K21.9 Gastro-esophageal reflux disease without esophagitis; M81.0 Age-related osteoporosis without current pathological fracture; M54.30 Sciatica, unspecified side; Z79.899 Other long term (current) drug therapy; Z80.0 Family history of malignant neoplasm of digestive organs; Z92.21 Personal history of antineoplastic chemotherapy; Z88.1 Allergy status to other antibiotic agents; Z88.8 Allergy status to other drugs, medicaments and biological substances